=== PATIENT | female | born 1950 | race Caucasian/White ===

== ENCOUNTER 2017-02-14 21:44 | Inpatient (IN) | payer MEDICARE, OTHER ==
--- NOTE | 2017-02-14 22:03 | ED ---
General Adult HPI - General Chief complaint: Altered Mental Status Stated complaint: Altered Mental State Time Seen by Provider: 02/14/17 21:54 Source: patient, family, RN notes reviewed, old records reviewed Mode of arrival: wheelchair Limitations: altered mental status - History of Present Illness Initial comments: This is a 67-year-old female here for evaluation. This patient presents for evaluation for altered mental status and weakness. Patient has A. fib diabetes hypertension and high cholesterol. Patient is on no new medications as changes no medications. No new drugs or alcohol. Patient has been increasingly sleeping today. Patient states and family states patient was normal yesterday today she just has been feeling well been short of breath and complaining of severe abdominal pain. Weakness. Nausea vomiting. Family denies any fevers. Patient denies any chest pain - Related Data Home Medications Medication Instructions Recorded Confirmed Bisacodyl [Dulcolax] 5 mg PO DAILY 08/10/14 02/14/17 Gabapentin [Neurontin] 300 mg PO QAM 08/10/14 02/14/17 LORazepam [Ativan] 1 mg PO DAILY PRN 08/10/14 02/14/17 Pantoprazole Sodium 40 mg PO DAILY 08/10/14 02/14/17 Penciclovir 1% Cream [Denavir 1 applic TOPICAL 5XD PRN 08/10/14 02/14/17 Cream] Solifenacin Succinate [Vesicare] 10 mg PO HS 08/10/14 02/14/17 Calcium Carbonate [Calcium] 600 mg PO DAILY 06/26/15 02/14/17 fentaNYL 75MCG/HR PATCH [Duragesic 1 patch TRANSDERM Q72H 06/26/15 02/14/17 75MCG/HR] Meclizine [Antivert] 25 mg PO DAILY PRN 03/26/16 02/14/17 Ondansetron [Zofran] 4 mg PO Q12HR PRN 03/26/16 02/14/17 Fluconazole [Diflucan] 100 mg PO DAILY 04/02/16 02/14/17 Gabapentin [Neurontin] 600 mg PO 04/02/16 02/14/17 Venlafaxine HCl ER [Effexor XR] 75 mg PO QAM 04/02/16 02/14/17 Venlafaxine HCl ER [Effexor XR] 150 mg PO HS 04/02/16 02/14/17 Nystatin [Nystop] 1 applic TOPICAL BID PRN 02/14/17 02/14/17 Previous Rx's Medication Instructions Recorded Atorvastatin [Lipitor] 40 mg PO HS #30 tablet 04/06/14 Potassium Chloride ER [K-Dur 10] 10 meq PO DAILY #30 tab.er.prt 04/06/14 amLODIPine [Norvasc] 5 mg PO DAILY #30 tab 04/06/14 Furosemide [Lasix] 20 mg PO DAILY #30 tablet 04/30/14 Insulin Glargine,Hum.rec.anlog 60 unit SQ BID #5 insuln.pen 04/05/16 [Lantus Solostar] Insulin Lispro [humaLOG Kwikpen] 6 unit SQ TID #5 insuln.pen 04/05/16 oxyCODONE-APAP 10-325MG [Percocet 1 tab PO Q8H PRN #90 tab 04/05/16 10-325 mg] Allergies Allergy/AdvReac Type Severity Reaction Status Date / Time metformin HCl Allergy Unknown Verified 02/14/17 22:02 [From Glucophage] Review of Systems ROS Statement: Those systems with pertinent positive or pertinent negative responses have been documented in the HPI. ROS Other: All systems not noted in ROS Statement are negative. Past Medical History Past Medical History: Atrial Fibrillation, Cancer, CVA/TIA, Diabetes Mellitus, Hyperlipidemia, Renal Disease, Sleep Apnea/CPAP/BIPAP Additional Past Medical History / Comment(s): CVA 3, hiatal hernia, spinal stenosis, degenerative disc disease at L3-L4, chronic kidney disease stage III, obstructive sleep apnea, paroxysmal atrial fibrillation, CK D type3, diabetic neuropathy. overactive bladder, major depressive disorder,history of leukocytosis, septic knee arising from a left knee revision, liver cancer History of Any Multi-Drug Resistant Organisms: MRSA Date of last positivie culture/infection: 2010 MDRO Source:: left knee Past Surgical History: Bariatric Surgery, Heart Catheterization With Stent, Hernia Repair, Orthopedic Surgery Additional Past Surgical History / Comment(s): lap band placed in 2003, prolapsed, removed in 2005, neuro stimulator in back, one stent to LAD after stress test. Left knee arthroscopic surgery, right total knee arthroplasty, left total knee arthroplasty 10/01/2011, repair of quadriceps tendon 08/21/2011 , left knee patellar tendon repair 09/24/2011, removal of the hardware of the left total knee arthroplasty with implantation of the antibiotic spacer October 08 2011, total left knee hardware replacement in May 2012. EGD on March [address] Duane Crawford. Past Anesthesia/Blood Transfusion Reactions: No Reported Reaction Date of Last Stent Placement:: 05/17/2010 Past Psychological History: Anxiety, Depression Additional Psychological History / Comment(s): Patient is living at home with daughter, son-in-law, grandchildren and great-grandchildren. There are multiple dogs and cats in home Smoking Status: Former smoker Past Alcohol Use History: None Reported Past Drug Use History: None Reported - Past Family History Mother Family Medical History: Congestive Heart Failure (CHF) Father Family Medical History: Myocardial Infarction (DE) General Exam Limitations: altered mental status General appearance: alert, in no apparent distress, obese Head exam: Present: atraumatic, normocephalic, normal inspection Eye exam: Present: normal appearance, PERRL, EOMI. Absent: scleral icterus, conjunctival injection, periorbital swelling ENT exam: Present: normal exam, mucous membranes moist Neck exam: Present: normal inspection. Absent: tenderness, meningismus, lymphadenopathy Respiratory exam: Present: normal lung sounds bilaterally. Absent: respiratory distress, wheezes, rales, rhonchi, stridor Cardiovascular Exam: Present: regular rate, normal rhythm, normal heart sounds. Absent: systolic murmur, diastolic murmur, rubs, gallop, clicks GI/Abdominal exam: Present: soft, normal bowel sounds. Absent: distended, tenderness, guarding, rebound, rigid Extremities exam: Present: normal inspection, full ROM, normal capillary refill. Absent: tenderness, pedal edema, joint swelling, calf tenderness Back exam: Present: normal inspection Neurological exam: Present: alert, oriented X3, CN II-XII intact Psychiatric exam: Present: normal affect, normal mood Skin exam: Present: warm, dry, intact, normal color. Absent: rash Course Vital Signs 02/14/17 02/14/17 21:45 23:15 Temperature 98 F Pulse Rate 100 62 Respiratory 26 H 18 Rate Blood Pressure 176/100 151/105 O2 Sat by Pulse 96 97 Oximetry - Reevaluation(s) Reevaluation #1: 02/15/17 01:29 Patient showing no real clinical improvement, still somnolent sleeping EKG Findings - EKG Comments: EKG Findings:: EKG shows A. fib rate of 97, QRS 78, QTC 467 Medical Decision Making - Medical Decision Making 58 female ER for altered mental status, weakness, and out of A. fib with RVR, will consult cardiology for management, patient also has urinary tract infection dehydration will admit for IV antibiotics - Lab Data Result diagrams: 02/14/17 23:00 02/14/17 23:00 Lab Results 02/14/17 02/14/17 02/14/17 Range/Units 23:00 23:00 23:00 WBC 16.0 H (3.8-10.6) k/uL RBC 5.14 (3.80-5.40) m/uL Hgb 13.4 (11.4-16.0) gm/dL Hct 43.0 (34.0-46.0) % MCV 83.7 (80.0-100.0) fL MCH 26.1 (25.0-35.0) pg MCHC 31.2 (31.0-37.0) g/dL RDW 14.5 (11.5-15.5) % Plt Count 310 (150-450) k/uL Neutrophils % 81 % Lymphocytes % 12 % Monocytes % 4 % Eosinophils % 1 % Basophils % 1 % Neutrophils # 13.0 H (1.3-7.7) k/uL Lymphocytes # 2.0 (1.0-4.8) k/uL Monocytes # 0.7 (0-1.0) k/uL Eosinophils # 0.1 (0-0.7) k/uL Basophils # 0.1 (0-0.2) k/uL Hypochromasia Moderate PT 11.1 (9.0-12.0) sec INR 1.1 (<1.1) APTT 22.5 (22.0-30.0) sec Sodium 137 (137-145) mmol/L Potassium 4.3 (3.5-5.1) mmol/L Chloride 100 (98-107) mmol/L Carbon Dioxide 22 (22-30) mmol/L Anion Gap 15 mmol/L BUN 11 (7-17) mg/dL Creatinine 0.90 (0.52-1.04) mg/dL Est GFR (MDRD) Af Amer >60 (>60 ml/min/1.73 sqM) Est GFR (MDRD) Non-Af >60 (>60 ml/min/1.73 sqM) Glucose 316 H (74-99) mg/dL Calcium 8.9 (8.4-10.2) mg/dL Total Bilirubin 0.8 (0.2-1.3) mg/dL AST 19 (14-36) U/L ALT 30 (9-52) U/L Alkaline Phosphatase 174 H (38-126) U/L Ammonia (<30) umol/L Total Creatine Kinase (30-135) U/L CK-MB (CK-2) (0.0-2.4) ng/mL CK-MB (CK-2) Rel Index Troponin I (0.000-0.034) ng/mL Total Protein 6.7 (6.3-8.2) g/dL Albumin 3.5 (3.5-5.0) g/dL Urine Color Urine Appearance (Clear) Urine pH (5.0-8.0) Ur Specific [place] (1.001-1.035) Urine Protein (Negative) Urine Glucose (UA) (Negative) Urine Ketones (Negative) Urine Blood (Negative) Urine Nitrite (Negative) Urine Bilirubin (Negative) Urine Urobilinogen (<2.0) mg/dL Ur Leukocyte Esterase (Negative) Urine RBC (0-5) /hpf Urine WBC (0-5) /hpf Ur Squamous Epith Cells (0-4) /hpf Urine Bacteria (None) /hpf 02/14/17 02/14/17 02/15/17 Range/Units 23:00 23:00 01:03 WBC (3.8-10.6) k/uL RBC (3.80-5.40) m/uL Hgb (11.4-16.0) gm/dL Hct (34.0-46.0) % MCV (80.0-100.0) fL MCH (25.0-35.0) pg MCHC (31.0-37.0) g/dL RDW (11.5-15.5) % Plt Count (150-450) k/uL Neutrophils % % Lymphocytes % % Monocytes % % Eosinophils % % Basophils % % Neutrophils # (1.3-7.7) k/uL Lymphocytes # (1.0-4.8) k/uL Monocytes # (0-1.0) k/uL Eosinophils # (0-0.7) k/uL Basophils # (0-0.2) k/uL Hypochromasia PT (9.0-12.0) sec INR (<1.1) APTT (22.0-30.0) sec Sodium (137-145) mmol/L Potassium (3.5-5.1) mmol/L Chloride (98-107) mmol/L Carbon Dioxide (22-30) mmol/L Anion Gap mmol/L BUN (7-17) mg/dL Creatinine (0.52-1.04) mg/dL Est GFR (MDRD) Af Amer (>60 ml/min/1.73 sqM) Est GFR (MDRD) Non-Af (>60 ml/min/1.73 sqM) Glucose (74-99) mg/dL Calcium (8.4-10.2) mg/dL Total Bilirubin (0.2-1.3) mg/dL AST (14-36) U/L ALT (9-52) U/L Alkaline Phosphatase (38-126) U/L Ammonia <9 (<30) umol/L Total Creatine Kinase 114 (30-135) U/L CK-MB (CK-2) 1.1 (0.0-2.4) ng/mL CK-MB (CK-2) Rel Index 1.0 Troponin I <0.012 (0.000-0.034) ng/mL Total Protein (6.3-8.2) g/dL Albumin (3.5-5.0) g/dL Urine Color Yellow Urine Appearance Clear (Clear) Urine pH 6.5 (5.0-8.0) Ur Specific [place] 1.011 (1.001-1.035) Urine Protein Trace H (Negative) Urine Glucose (UA) 2+ H (Negative) Urine Ketones Trace H (Negative) Urine Blood Negative (Negative) Urine Nitrite Negative (Negative) Urine Bilirubin Negative (Negative) Urine Urobilinogen <2.0 (<2.0) mg/dL Ur Leukocyte Esterase Large H (Negative) Urine RBC <1 (0-5) /hpf Urine WBC 10 H (0-5) /hpf Ur Squamous Epith Cells <1 (0-4) /hpf Urine Bacteria Rare H (None) /hpf - Radiology Data Radiology results: report reviewed (CT brain, chest x-ray and CT of the pelvis are negative for acute disease), image reviewed Disposition Clinical Impression: Atrial fibrillation with RVR, Altered mental status, UTI (urinary tract infection) Disposition: ADMITTED IP TO THIS HOSP Condition: Fair Referrals: Shane Burnham MD [Primary Care Provider] - 1-2 days
[2017-02-14] MEDS ORDERED: SODIUM CHLORIDE 0.9% 1,000 ML IV ONE (22:07)
[2017-02-14] MEDS ORDERED: SODIUM CHLORIDE 0.9% 500 ML IV ONE (22:07)
[2017-02-14] MEDS ORDERED: LORazepam 2 MG/ML SYRINGE IV STA (22:21)
[2017-02-14] MEDS ORDERED: ONDANSETRON 4 MG/2 ML VIAL IVP STA (22:21)
[2017-02-14] MEDS ORDERED: HYDROmorphone 1 MG/ML 1 ML SYRINGE IVP STA ×2 (22:21→23:23)
[2017-02-14] MEDS ORDERED: HYDROmorphone 2 MG/ML 1 ML SYRINGE IVP STA (23:13)
[2017-02-14 23:19] LABS: Basophils # (A) 0.1 k/uL (0-0.2); Basophils % (A) 1 %; CH 25.4; CHCM 30.5; Eosinophils # (A) 0.1 k/uL (0-0.7); Eosinophils % (A) 1 %; HDW 2.64; HGB 13.4 gm/dL (11.4-16.0); Hypochromasia Moderate; Luc # (Auto) 0.16; Luc % (Auto) 1; Lymphocytes % (A) 12 %; MCH 26.1 pg (25.0-35.0); MCHC 31.2 g/dL (31.0-37.0); MCV 83.7 fL (80.0-100.0); Mean Platelet Volume 8.1; Monocytes # (A) 0.7 k/uL (0-1.0); Monocytes % (A) 4 %; Neutrophils % (A) 81 %; RBC 5.14 m/uL (3.80-5.40); RDW 14.5 % (11.5-15.5); WBC (Perox) 16.05
[2017-02-14 23:30] LABS: INR 1.1 (<1.1); Partial Thromboplastin Time 22.5 sec (22.0-30.0); Prothrombin Time 11.1 sec (9.0-12.0)
[2017-02-14 23:32] LABS: ALT 30 U/L (9-52); AST 19 U/L (14-36); Alkaline Phosphatase 174 U/L (38-126); Anion Gap 15 mmol/L; Blood Urea Nitrogen 11 mg/dL (7-17); Calcium 8.9 mg/dL (8.4-10.2); Carbon Dioxide 22 mmol/L (22-30); Chloride 100 mmol/L (98-107); Glucose 316 mg/dL (74-99); Non-African American GFR(MDRD) >60 (>60 ml/min/1.73 sqM); Potassium 4.3 mmol/L (3.5-5.1); Sodium 137 mmol/L (137-145); Total Bilirubin 0.8 mg/dL (0.2-1.3); Total Protein 6.7 g/dL (6.3-8.2)
[2017-02-14] MEDS ORDERED: RX INFO: IV CONTRAST WAS GIVEN 1 EACH MISC MISCELLANE PRN (23:44)
[2017-02-14 23:46] LABS: Creatine Kinase 114 U/L (30-135)
[2017-02-14 23:59] LABS: Creatine Kinase MB 1.1 ng/mL (0.0-2.4); Troponin I <0.012 ng/mL (0.000-0.034)
--- NOTE | 2017-02-15 00:04 | CT ---
EXAMINATION TYPE: CT brain wo con DATE OF EXAM: 02/14/2017 11:56 PM COMPARISON: NONE HISTORY: AMS CT DLP: 1072.30 mGycm Automated exposure control for dose reduction was used. FINDINGS: There is mild cerebral cortical atrophy. There is mild hypodensity around the lateral ventricles. The re is no mass effect nor midline shift. There is no sign of intracranial hemorrhage. The calvarium is intact. IMPRESSION: Mild atrophy and chronic small vessel ischemia. No acute intracranial abnormality. There is evidence for mild left-sided mastoiditis.
--- NOTE | 2017-02-15 01:10 | CT ---
EXAM: CT of the abdomen and pelvis with intravenous contrast. HISTORY: "Generalized abdominal pain". Medical and surgical history were not disclosed. On prior radiology report there is note of stage III renal disease and liver cancer. COMPARISON: CT of the abdomen and pelvis dated 04/02/16. TECHNIQUE: Continuous axial images of the abdomen and pelvis were obtained with intravenous contrast. Coronal and sagittal reformatting was provided. Delayed images were obtained. FINDINGS: Detailed evaluation on portal venous phase is limited by artifact due to body habitus/contact with the gantry. Further limited by moderate patient motion. There are several minute hypodensities in the right hepatic lobe region. These are too small to definitively characterize. They could be secondary to cyst or small hemangiomas. Some may be related to intrahepatic biliary ductal dilatation. However, the possibility of metastatic disease is not ruled out. Status post cholecystectomy. The spleen and adrenal glands show no substantial abnormality. Atrophic pancreas. Detailed evaluation of the kidneys on portal venous phase is markedly limited by patient motion. There is suggestion of several cortical hypodensities bilaterally, right greater than left. Some of this could be due to volume averaging artifact secondary to patient motion. However, on delayed phase imaging there is suggestion of a 1.4 cm heterogeneously enhancing mass in the right kidney (series 5, image 46). This is suspicious for malignancy. Recommend outpatient/nonemergent followup with dynamic phase renal MRI or CT for more detailed evaluation. No dilated loop of bowel to suggest obstruction. Urinary bladder is unremarkable. IMPRESSION: 1. Probable 1.4 cm heterogeneous enhancing mass in the right kidney as discussed. Suspicious for malignancy. Detailed evaluation limited by motion. Recommend outpatient/nonemergent dynamic phase renal MRI or CT for more detailed evaluation. 2. Lobulated contour of the inferior right hepatic lobe with ill-defined small hypodensities hypodensities as discussed. Metastatic disease is not ruled out. Attention on followup imaging. Potentially, a lobulated contour could be postsurgical. Correlate clinically. CTDI vol = 76.80 mGy DLP = 3223.20 mGycm One or more of the following dose reduction techniques were used: automated exposure control, adjustment of the mA and/or kV according to patient size, use of iterative reconstruction technique. cool
[2017-02-15 01:20] LABS: Appearance,Urine Clear (Clear); Bacteria,Urine Rare /hpf; Bilirubin,Urine Negative (Negative); Glucose,Urine (UA) 2+ (Negative); Ketones,Urine Trace (Negative); Leukocyte Esterase,Urine Large (Negative); Nitrite,Urine Negative (Negative); PH, Urine 6.5 (5.0-8.0); Particle Count 2348; Protein,Urine Trace (Negative); RBC,Urine <1 /hpf (0-5); Specific Gravity,Urine 1.011 (1.001-1.035); Squamous Epithelial Cell,Urine <1 /hpf (0-4); UA Billing (MACRO vs. MICRO) MICRO; Urobilinogen,Urine <2.0 mg/dL (<2.0); WBC,Urine 10 /hpf (0-5)
[2017-02-15] MEDS ORDERED: HYDROmorphone 1 MG/ML 1 ML SYRINGE IVP STA ×2 (03:00→05:52)
[2017-02-15 04:27] VITALS: BMI 46.1
[2017-02-15] MEDS ORDERED: NYSTATIN 100,000 UNIT/GM POWD 15 GM TOPICAL PRN (05:52)
[2017-02-15] MEDS ORDERED: ONDANSETRON 4 MG TAB PO PRN (05:52)
[2017-02-15] MEDS ORDERED: MECLIZINE 25 MG TAB PO PRN (05:52)
[2017-02-15 06:05] LABS: Glucose,Whole Blood 325 mg/dL (75-99)
[2017-02-15] MEDS: INSULIN LISPRO (humaLOG) 300 UNIT/3 ML VIAL SQ SCH ×4 (07:53→22:14)
[2017-02-15] MEDS: PANTOPRAZOLE 40 MG TABLET PO SCH (07:53)
[2017-02-15] MEDS: BISACODYL 5 MG TABLET.DR PO SCH ×2 (08:47→14:01)
[2017-02-15] MEDS: FLUCONAZOLE 100 MG TAB PO SCH (08:47)
[2017-02-15] MEDS: CALCIUM CARBONATE 500 MG CHEWABLE PO SCH (08:47)
[2017-02-15] MEDS: GABAPENTIN 300 MG CAP PO SCH ×2 (08:48→22:14)
[2017-02-15] MEDS: amLODIPine 5 MG TAB PO SCH ×2 (08:48→12:26)
[2017-02-15] MEDS: POTASSIUM CHLORIDE ER 10 MEQ TAB.ER.PRT PO SCH ×2 (08:48→08:51)
[2017-02-15] MEDS: VENLAFAXINE HCL ER 75 MG CAP PO SCH ×2 (08:48→22:15)
[2017-02-15] MEDS ORDERED: valACYclovir HCL 1,000 MG TABLET PO PRN (09:00)
[2017-02-15] MEDS ORDERED: FUROSEMIDE 20 MG TAB PO SCH (09:00)
[2017-02-15] MEDS ORDERED: RX INFO: IV CONTRAST WAS GIVEN 1 EACH MISC MISCELLANE PRN (09:16)
[2017-02-15] MEDS: oxyCODONE-APAP 10-325MG 1 EACH TAB PO PRN ×2 (09:33→17:14)
[2017-02-15 11:22] LABS: Hemoglobin A1C 7.5 % (4.2-6.1)
--- NOTE | 2017-02-15 11:45 | CT ---
EXAMINATION TYPE: CT angio chest DATE OF EXAM: 02/15/2017 11:27 AM COMPARISON: Body CT performed earlier today. HISTORY: 67-year-old female shortness of breath, rule out PE, with history of liver cancer TECHNIQUE: Contiguous axial scanning of the chest performed with IV Contrast, patient injected with 1 00 mL of Omnipaque 350. Coronal/sagittal MIP reconstructions performed. CT DLP: 656.5 mGycm Automated exposure control for dose reduction was used. FINDINGS: The heart is borderline enlarged without pericardial effusion. Coronary vessel calcifications are pre sent in remarkable for coronary artery disease. Ascending aorta is ectatic at 3.7 cm. Conventional arch vessel branching anatomy. While there is satisfactory opacification of the pulmonary arterial system, there is excessive respir atory motion and additional artifact from patient's large body habitus. No large central or lobar pul monary embolus. No embolus seen to the subsegmental level in the upper and midlungs. Many of the segm ental and subsegmental branches in the lower lower lobes are suboptimal for assessment. Hazy areas of atelectasis in the lower lungs. Mild diffuse bronchial wall thickening is noted without amy consolidation or pleural effusion. Some surgical changes along the proximal stomach. Unusual lobulated configuration to the inferior asp ect of the right hepatic lobe as mentioned on 02/14/[address] performed in the relay tester helper. Cholec ystectomy clips. Bones: Moderate endplate spondylosis throughout. Spinal stimulator array centered along the mid thora cic spinal canal. IMPRESSION: 1. RESPIRATORY MOTION LIMITING ASSESSMENT OF THE SEGMENTAL AND SUBSEGMENTAL BRANCHES OF THE LOWER MARTHA GS. EMBOLI HERE CANNOT ADEQUATELY BE EXCLUDED, FOR EXAMPLE, INVOLVING A SEGMENTAL RIGHT LOWER LOBE BR ANCH, AXIAL IMAGE 61. NO EVIDENCE FOR A PULMONARY EMBOLUS WITHIN THE UPPER AND MID LUNGS. 2. HAZY AREAS OF ATELECTASIS THROUGHOUT THE LUNGS.
[2017-02-15 12:10] LABS: Glucose,Whole Blood 207 mg/dL (75-99)
[2017-02-15] MEDS ORDERED: ENOXAPARIN 40 MG/0.4 ML SYRINGE SQ SCH (12:30)
--- NOTE | 2017-02-15 12:30 | P.HPIM ---
History of Present Illness H&P Date: 02/15/17 This is a 67-year-old female one of Dr. Burnham with a previous medical history significant for coronary artery disease status post PCI and stent placement of the LAD back in 2009 with ischemic cardiomyopathy, hypertension and hypertensive perivascular disease with left ventricular hypertrophy, chronic kidney disease stage III, obstructive sleep apnea, CVA, paroxysmal atrial fibrillation, septic left knee arthroplasty, liver cancer in the care of [facility]. Patient was brought into [facility] emergency center due to altered mental status and weakness. Patient has also had increased sleeping today and apparently was normal yesterday. There is also concern for shortness of breath and complaining of severe abdominal pain. Patient is seen on the selective care unit. She is a very poor historian. She does states she had a fall with back and stomach pain and increasing weakness with nausea and vomiting. Her temperature at home was 98. She does state that she is still on chemotherapy at [facility]. She underwent a CAT scan of the brain that showed mild atrophy and chronic small vessel ischemia. No acute intracranial abnormality. Evidence of mild left-sided mastoiditis. CAT scan of the abdomen and pelvis revealed a probable 1.4 cm heterogeneous enhancing mass in the right kidney suspicious for malignancy. Lobulated contour the and. Right hepatic lobe with ill-defined small hypodensities. Metastatic disease is not ruled out. CTA chest finding a limited study of the lower branches but no evidence of pulmonary embolus with an upper and mid lungs. Hazy areas of atelectasis throughout the lungs. Consults were placed for cardiology regarding atrial fibrillation which is a controlled rate at this time. Patient is not on anticoagulation due to her underlying liver disease. Consult placed with urology to evaluate kidney mass. Review of Systems ROS unobtainable: due to mental status Past Medical History Past Medical History: Atrial Fibrillation, Cancer, CVA/TIA, Diabetes Mellitus, Hyperlipidemia, Renal Disease, Sleep Apnea/CPAP/BIPAP Additional Past Medical History / Comment(s): CVA 3, hiatal hernia, spinal stenosis, degenerative disc disease at L3-L4, chronic kidney disease stage III, obstructive sleep apnea, paroxysmal atrial fibrillation, CK D type3, diabetic neuropathy. overactive bladder, major depressive disorder,history of leukocytosis, septic left knee arthroplasty, liver cancer- no changes to medical history per patient (02/15/17) History of Any Multi-Drug Resistant Organisms: MRSA Date of last positivie culture/infection: 2010 MDRO Source:: left knee Past Surgical History: Bariatric Surgery, Heart Catheterization With Stent, Hernia Repair, Orthopedic Surgery Additional Past Surgical History / Comment(s): lap band placed in 2003, prolapsed, removed in 2005, neuro stimulator in back, one stent to LAD after stress test. Left knee arthroscopic surgery, right total knee arthroplasty, left total knee arthroplasty 10/01/2011, repair of quadriceps tendon 08/21/2011 , left knee patellar tendon repair 09/24/2011, removal of the hardware of the left total knee arthroplasty with implantation of the antibiotic spacer October 08 2011, total left knee hardware replacement in May 2012. EGD on March [address] Duane Crawford. No changes to surgical history per patient (02/15/17) Past Anesthesia/Blood Transfusion Reactions: No Reported Reaction Date of Last Stent Placement:: 05/17/2010 Past Psychological History: Anxiety, Depression Additional Psychological History / Comment(s): Patient is living at home with daughter, son-in-law, grandchildren and great-grandchildren. There are multiple dogs and cats in home Smoking Status: Never smoker Past Alcohol Use History: None Reported Past Drug Use History: Opiates - Past Family History Mother Family Medical History: Congestive Heart Failure (CHF) Father Family Medical History: Myocardial Infarction ([place]) Medications and Allergies Home Medications Medication Instructions Recorded Confirmed Type Bisacodyl [Dulcolax] 5 mg PO DAILY 08/10/14 02/14/17 History Gabapentin [Neurontin] 300 mg PO QAM 08/10/14 02/14/17 History LORazepam [Ativan] 1 mg PO DAILY PRN 08/10/14 02/14/17 History Pantoprazole Sodium 40 mg PO DAILY 08/10/14 02/14/17 History Penciclovir 1% Cream [Denavir 1 applic TOPICAL 5XD PRN 08/10/14 02/14/17 History Cream] Solifenacin Succinate [Vesicare] 10 mg PO HS 08/10/14 02/14/17 History Calcium Carbonate [Calcium] 600 mg PO DAILY 06/26/15 02/14/17 History fentaNYL 75MCG/HR PATCH [Duragesic 1 patch TRANSDERM Q72H 06/26/15 02/14/17 History 75MCG/HR] Meclizine [Antivert] 25 mg PO DAILY PRN 03/26/16 02/14/17 History Ondansetron [Zofran] 4 mg PO Q12HR PRN 03/26/16 02/14/17 History Fluconazole [Diflucan] 100 mg PO DAILY 04/02/16 02/14/17 History Gabapentin [Neurontin] 600 mg PO HS 04/02/16 02/14/17 History Venlafaxine HCl ER [Effexor XR] 75 mg PO QAM 04/02/16 02/14/17 History Venlafaxine HCl ER [Effexor XR] 150 mg PO HS 04/02/16 02/14/17 History Nystatin [Nystop] 1 applic TOPICAL BID PRN 02/14/17 02/14/17 History Allergies Allergy/AdvReac Type Severity Reaction Status Date / Time metformin HCl Allergy Unknown Verified 02/14/17 22:02 [From Glucophage] Physical Exam Vitals: Vital Signs Temp Pulse Pulse Resp BP BP Pulse Ox 02/15/17 04:00 97.1 F L 103 H 18 166/99 93 L 02/15/17 03:07 96.8 F L 105 H 18 131/70 93 L 02/15/17 01:45 98.0 F 75 16 138/67 93 L Intake and Output 02/14/17 02/15/17 02/15/17 22:59 06:59 14:59 Intake Total 0 Output Total 300 Balance -300 0 Intake: Oral 0 Output: Urine 300 Other: Voiding Method Toilet # Voids 1 Weight 122 kg General appearance: mild distress, morbidly obese - EENT Eyes: Reports anicteric sclerae, Reports disc margins sharp, Reports PERRLA, Reports fundus normal, Reports normal apperance, Denies ptosis, Denies scleral icterus ENT: Reports hearing grossly normal, Reports NA/AT, Denies normal oropharynx, Denies thrush - Neck Neck: Reports normal ROM, Denies lymphadenopathy, Denies rigidity, Denies stridor, Denies thyromegaly Carotids: bilateral: upstroke delayed Thyroid: bilateral: normal size - Respiratory Respiratory: bilateral: diminished, negative: dullness, rales, rhonchi, wheezing , prolonged expiration, prolonged inspiration - Cardiovascular Rhythm: regular Heart sounds: normal: S1, S2 Abnormal Heart Sounds: Reports systolic murmur, Denies rub, Denies S3 Gallop, Denies S4 Gallop, Denies click - Gastrointestinal General gastrointestinal: no distended, Reports normal bowel sounds, Reports soft, Reports tenderness, Denies umbilical hernia, Denies ventral hernia - Integumentary Integumentary: Reports normal, Reports normal turgor - Neurologic Neurologic: CNII-XII intact - Musculoskeletal Musculoskeletal: Reports generalized weakness, Reports strength equal bilaterally - Psychiatric Psychiatric: no A&O x's 3, Reports appropriate affect, no intact judgment & insight Results CBC & Chem 7: 02/14/17 23:00 02/14/17 23:00 Labs: Abnormal Lab Results - Last 24 Hours (Table) 02/15/17 Range/Units 06:03 POC Glucose (mg/dL) 325 H (75-99) mg/dL Thrombosis Risk Factor Assmnt - DVT/VTE Prophylaxis DVT/VTE Prophylaxis: Pharmacologic Prophylaxis ordered - Choose All That Apply Each Factor Represents 1 point: Obesity (BMI >25) Each Risk Factor Represents 2 Points: Age 61-74 years Thrombosis Risk Factor Assessment Total Risk Factor Score: 3 Thrombosis Risk Factor Assessment Level: Moderate Risk Assessment and Plan Plan: 1. Metabolic encephalopathy possibly due to urinary tract infection and sepsis. Continue ceftriaxone. Urine and blood cultures are in progress. 2. Atrial fibrillation presenting with minimally rapid ventricular response. Cardiology consult was placed. Patient is not on anticoagulation due to liver disease. 2. Abdominal pain which may be chronic due to her underlying history of liver cancer. She is currently on a fentanyl patch at 75 g every 3 days and Percocet. 4. New finding of mass in the right kidney. Consult with urology. 5. CTA of the chest with possible pulmonary embolism. Patient will be started on a heparin drip, consult with Dr. Mcgee. VQ scan ordered. 6. Diabetes mellitus type 2. Continue Lantus 60 units subcu at bedtime along with the Humalog weight base plus sliding scale insulin, blood glucose level monitoring before each meal and at bedtime. 7. Hypertension and hypertensive cardiovascular disease. Continue amlodipine 5 mg orally once every day. 8. Paroxysmal atrial fibrillation currently in sinus rhythm. Consult with cardiology 9. Liver cancer. Under the care of hematology oncology at [facility]. 10. Hyperlipidemia. Continue Lipitor 40 mg orally once every day. 11. COPD, stable. 12. History of CAD status post myocardial infarction and prior PCI of the LAD. Continue Lipitor 40 mg orally once every day. 13. History of the depressive disorder. Continue venlafaxine 75 mg orally in the morning and 150 mg at bedtime. 14. Overactive bladder. Continue Vesicare 10mg every day. 15. DVT prophylaxis. Heparin drip. 16. GI prophylaxis. Protonix 40 mg IV push every 24 hours. 17. Admitted to inpatient. Estimated length of stay 2 midnights. Discharge plan: To be determined Impression and plan of care have been directed as dictated by the signing physician. Clare Mak nurse practitioner acting as scribe for signing physician. Time with Patient: Greater than 30
[2017-02-15] MEDS ORDERED: HEPARIN SODIUM,PORCINE 10,000 UNIT/ML 1 ML VIAL IV ONE (12:41)
[2017-02-15] MEDS ORDERED: HEPARIN SODIUM,PORCINE 5,000 UNIT/ML 1 ML VIAL IV PRN (12:41)
[2017-02-15] MEDS ORDERED: HEPARIN SODIUM,PORCINE/D5W PMX 25,000 UNIT in DEXTROSE/WATER 1 500ML.BAG IV SCH (12:45)
[2017-02-15 12:49] LABS: Potassium 4.6 mmol/L (3.5-5.1)
--- NOTE | 2017-02-15 13:09 | XR ---
EXAMINATION TYPE: XR chest 1V portable DATE OF EXAM: 02/15/2017 1:04 PM Comparison: 06/11/2016 Clinical History: 67-year-old female shortness of breath, CHF Findings: Heart is upper limits of normal in size. Diffuse interstitial prominence. Some hazy density periphera l left base and some strandy atelectasis at the left midlung. Impression: Interstitial opacities. Correlate for possible mild CHF.
[2017-02-15] MEDS: SODIUM CHLORIDE 0.9% 1,000 ML IV SCH (14:00)
--- NOTE | 2017-02-15 14:13 | P.CNPUL ---
History of Present Illness Consult date: 02/15/17 Chief complaint: Pulmonary embolism History of present illness: his is a 67-year-old female one of Dr. Burnham with a previous medical history significant for coronary artery disease status post PCI and stent placement of the LAD back in 2009 with ischemic cardiomyopathy, hypertension and hypertensive perivascular disease with left ventricular hypertrophy, chronic kidney disease stage III, obstructive sleep apnea, CVA, paroxysmal atrial fibrillation, septic left knee arthroplasty, liver cancer in the care of [facility]. 67-year-old morbidly obese female patient was hospitalized because of altered mental status and generalized body weakness. Lactic acid was mildly elevated at a time of admission. She denied having any chest pain. No cough or sputum production. No pleurisy. No hemoptysis pH is currently on room air. She is afebrile. She is known to have obstructive sleep apnea yet she is not compliant to CPAP therapy. She also has history of a liver cancer him a hepatocellular carcinoma, treated through localized embolization, and she has been told by the oncologist at [facility] that the tumor has been under the check. No history of any fever or chills. No headaches. No seizure activity. No dysuria frequency or urgency. No open wounds or sores. She has cutaneous fungal skin infection involving the groin. This is likely Miryam. She is currently on Diflucan. The patient underwent a CAT scan of the brain that showed mild atrophy and chronic small vessel ischemia. No acute intracranial abnormality. Evidence of mild left-sided mastoiditis. CAT scan of the abdomen and pelvis revealed a probable 1.4 cm heterogeneous enhancing mass in the right kidney suspicious for malignancy. Lobulated contour the and. Right hepatic lobe with ill-defined small hypodensities. Metastatic disease is not ruled out. CTA chest finding a limited study of the lower branches but no evidence of pulmonary embolus with an upper and mid lungs. Hazy areas of atelectasis throughout the lungs. No calf pain. No swelling lower extremities. She has atrial fibrillation however she has not been found to be a good candidate for anticoagulation. Review of Systems Further review of system was done and the positive findings are almost above in history of present illness Past Medical History Past Medical History: Atrial Fibrillation, Cancer, CVA/TIA, Diabetes Mellitus, Hyperlipidemia, Sleep Apnea/CPAP/BIPAP Additional Past Medical History / Comment(s): Morbid obesity, coronary artery disease with previous angioplasty to LAD in 2009, hypertension, hepatocellular carcinoma, obstructive sleep apnea, diabetes mellitus, hyperlipidemia, CVA/TIA, chronic atrial fibrillation, hiatal hernia, spinal stenosis, degenerative disc disease involving L3 and L4, diabetic peripheral neuropathy, hyperactive bladder , history of septic left knee joint post arthroplasty History of Any Multi-Drug Resistant Organisms: MRSA Date of last positivie culture/infection: 2010 MDRO Source:: left knee Past Surgical History: Bariatric Surgery, Heart Catheterization With Stent, Hernia Repair, Orthopedic Surgery Additional Past Surgical History / Comment(s): lap band placed in 2003, prolapsed, removed in 2005, neuro stimulator in back, one stent to LAD after stress test. Left knee arthroscopic surgery, right total knee arthroplasty, left total knee arthroplasty 10/01/2011, repair of quadriceps tendon 08/21/2011 , left knee patellar tendon repair 09/24/2011, removal of the hardware of the left total knee arthroplasty with implantation of the antibiotic spacer October 08 2011, total left knee hardware replacement in May 2012. EGD on March [address] Duane Crawford. No changes to surgical history per patient (02/15/17), cholecystectomy, tonsillectomy, adenoidectomy, total abdominal hysterectomy and bilateral salpingo-oophorectomy, repair of a quadriceps tendon, trigger finger, left hand in 2003 with subsequent reversal in 2005 Past Anesthesia/Blood Transfusion Reactions: No Reported Reaction Date of Last Stent Placement:: 05/17/2010 Past Psychological History: Anxiety, Depression Additional Psychological History / Comment(s): Patient is living at home with daughter, son-in-law, grandchildren and great-grandchildren. There are multiple dogs and cats in home Smoking Status: Never smoker Past Alcohol Use History: None Reported Past Drug Use History: Opiates - Past Family History Mother Family Medical History: Congestive Heart Failure (CHF) Father Family Medical History: Myocardial Infarction ([place]) Medications and Allergies Home Medications Medication Instructions Recorded Confirmed Type Bisacodyl [Dulcolax] 5 mg PO DAILY 08/10/14 02/14/17 History Gabapentin [Neurontin] 300 mg PO QAM 08/10/14 02/14/17 History LORazepam [Ativan] 1 mg PO DAILY PRN 08/10/14 02/14/17 History Pantoprazole Sodium 40 mg PO DAILY 08/10/14 02/14/17 History Penciclovir 1% Cream [Denavir 1 applic TOPICAL 5XD PRN 08/10/14 02/14/17 History Cream] Solifenacin Succinate [Vesicare] 10 mg PO HS 08/10/14 02/14/17 History Calcium Carbonate [Calcium] 600 mg PO DAILY 06/26/15 02/14/17 History fentaNYL 75MCG/HR PATCH [Duragesic 1 patch TRANSDERM Q72H 06/26/15 02/14/17 History 75MCG/HR] Meclizine [Antivert] 25 mg PO DAILY PRN 03/26/16 02/14/17 History Ondansetron [Zofran] 4 mg PO Q12HR PRN 03/26/16 02/14/17 History Fluconazole [Diflucan] 100 mg PO DAILY 04/02/16 02/14/17 History Gabapentin [Neurontin] 600 mg PO HS 04/02/16 02/14/17 History Venlafaxine HCl ER [Effexor XR] 75 mg PO QAM 04/02/16 02/14/17 History Venlafaxine HCl ER [Effexor XR] 150 mg PO HS 04/02/16 02/14/17 History Nystatin [Nystop] 1 applic TOPICAL BID PRN 02/14/17 02/14/17 History Allergies Allergy/AdvReac Type Severity Reaction Status Date / Time metformin HCl Allergy Unknown Verified 02/14/17 22:02 [From Glucophage] Physical Exam Vitals: Vital Signs Temp Pulse Pulse Resp BP BP BP 02/15/17 12:00 97.4 F L 79 20 158/90 02/15/17 08:30 98.6 F 100 24 128/81 02/15/17 04:00 97.1 F L 103 H 18 166/99 02/15/17 03:07 96.8 F L 105 H 18 131/70 02/15/17 01:45 98.0 F 75 16 138/67 Pulse Ox 02/15/17 12:00 94 L 02/15/17 08:30 92 L 02/15/17 04:00 93 L 02/15/17 03:07 93 L 02/15/17 01:45 93 L Intake and Output 02/14/17 02/15/17 02/15/17 22:59 06:59 14:59 Intake Total 120 Output Total 300 400 Balance -300 -280 Intake: Oral 120 Output: Urine 300 400 Other: Voiding Method Toilet Bedside Commode # Voids 150 Weight 122 kg Morbidly obese, calm and comfortable, not consistent distress. My normal had neck is supple and short and there is significant crowding of posterior pharynx. No goiter or neck masses.Lungs were clear to auscultation and percussion, and with normal diaphragmatic excursion. No wheezes or rales were noted. My normal heart abdomen is obese and the patient's organs cannot be accurately palpated. There is no direct tenderness. No rebound tenderness. No guarding. Extremities reveal trace edema lower eczematous bilaterally. There is no cyanosis or clubbing. Neurologically she is awake and she is following commands and answering questions and she is moving all 4 extremities without any limitation. Results - Laboratory Findings CBC and BMP: 02/14/17 23:00 02/15/17 12:13 PT/INR, D-dimer PT 11.1 sec (9.0-12.0) 02/14/17 23:00 INR 1.1 (<1.1) 02/14/17 23:00 Abnormal lab findings: Abnormal Labs 02/15/17 02/15/17 02/15/17 06:03 12:03 12:13 Sodium POC Glucose (mg/dL) 325 H 207 H Plasma Lactic Acid Fabio 3.8 H* Magnesium TSH 02/15/17 02/15/17 12:13 12:13 Sodium 136 L POC Glucose (mg/dL) Plasma Lactic Acid Fabio Magnesium 1.5 L TSH 7.790 H - Diagnostic Findings Chest x-ray: image reviewed Assessment and Plan Plan: Assessment 1 change in mental status, likely encephalopathy. Look for any infectious source, likely of a urinary source. No evidence of pneumonia. No evidence of any pulmonary embolism. 2 previous history of septic shock secondary to her urine checked infection and vent-dependent history failure in 2013 3. Liver cancer/hepatocellular carcinoma status post localized chemotherapy 4 morbid obesity 5 obstructive sleep apnea 6 diabetes mellitus 7 diabetic peripheral neuropathy 8 hypertension 9 previous pediatric surgery in the form of lap and that was subsequently removed 10 anxiety/depression 11 chronic atrial fibrillation 12 coronary artery disease with previous coronary intervention involving the LAD 13 Lactic acidosis, mild 14 candidal intercrural infection. Plan No need for a VQ scan. IV heparin and switched the patient to subcu heparin. Discussed the case with Dr. JAYME Hensley from cardiology and the patient does not seem to be a long-term anticoagulation candidate for atrial fibrillation. The patient has no evidence of any pulmonary embolism. Awaiting urine culture. Awaiting blood cultures. Check ammonia level. Continue IV antibiotics. We'll follow.
[2017-02-15] MEDS: METOPROLOL TARTRATE 50 MG TAB PO SCH ×2 (15:46→22:14)
[2017-02-15] MEDS: FUROSEMIDE 10 MG/ML 2 ML VIAL IV SCH (15:46)
[2017-02-15 16:49] LABS: Glucose,Whole Blood 208 mg/dL (75-99)
[2017-02-15] MEDS: MAGNESIUM SULFATE-D5W PMX 1 GM in DEXTROSE/WATER 1 100ML.BAG IVPB SCH ×2 (16:57→18:37)
--- NOTE | 2017-02-15 17:31 | CONS ---
DATE OF CONSULTATION: A 67-year-old elderly lady with a known diagnosis of paroxysmal atrial fibrillation, type 2 diabetes, hypertension, obesity, hyperlipidemia. She was diagnosed to have a liver abnormality, probably metastatic disease. There is also a renal enhancing mass as well. She is a patient of Dr. Burnham and apparently she sought evaluation at [facility] and she was on anticoagulation for atrial fib, but once the diagnosis of liver metastasis was made her anticoagulation was discontinued. She is known to have CAD with previous PCI sometime in 2009, the details are unavailable. She has chronic kidney disease, sleep apnea syndrome, paroxysmal atrial fibrillation and history of left knee arthroplasty in the past. 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 She is here mainly because of weakness, lack of energy, and some confusion. She also had some shortness of breath, but did not have any chest discomfort. She has no syncope or near syncope. Rhythm strips here suggested that she is in paroxysmal atrial fibrillation. She used to be on beta blockers at home. She denies any chest pain and her generalized weakness is her major issue at this time. Her confusion seems to have also improved. PAST MEDICAL HISTORY: 1. History of CAD, previous PCI, details unavailable. 2. Chronic kidney disease. 3. Obstructive sleep apnea syndrome. 4. Paroxysmal atrial fibrillation. 5. History of liver cancer, details unclear. The patient was on anticoagulation but this was discontinued at [facility] after diagnosis of liver mets. Patient is status post bariatric surgery and orthopedic surgery and hernia repair. Medications at home include: Neurontin, lorazepam, metoprolol tartrate according to patient's daughter, Duragesic patch, Effexor and calcium supplements. REVIEW OF SYSTEMS: Remarkable for generalized weakness, lack of energy, confusion. No hematemesis or melena, genitourinary symptoms, fevers with chills, or cough with expectoration. On examination, blood pressure is 140/80, pulse rate is about 80 per minute irregular. HEENT: Unremarkable. Fundus was not examined by me. Neck is supple. There is JVD of 1 cm. No carotid bruit. Heart exam reveals S1 and S2 heard normally, irregular rate and rhythm noted, short systolic murmur noted. Lungs reveal diminished air entry. Abdomen is distended. Lower extremities reveal diminished pulses, trace edema. CENTRAL NERVOUS SYSTEM: Grossly no focal deficits. CT angiography of the chest was performed. Study revealed that there is no clear-cut evidence of pulmonary embolism, but there was some motion artifact and subsegmental emboli could not be excluded. EKG revealed atrial fibrillation, controlled ventricular rate, nonspecific ST-T changes and evidence of a nondiagnostic inferior Q wave. IMPRESSION: 1. Atrial fibrillation, paroxysmal in nature, not anticoagulated. 2. Fatigue and lack of energy, multifactorial. No clear-cut etiology. 3. Shortness of breath, could be multifactorial, not strongly suggestive of pulmonary embolism. 4. History of liver cancer, details unclear. RECOMMENDATIONS: From a cardiac standpoint, I am recommending subcu heparin 5000 units q.12 hours. The patient has already been initiated on heparin, which I am not sure what is necessary under the current circumstances. I spoke to Dr. Mcgee who will make a decision in this regard. I am going to add a beta lupe, metoprolol tartrate 50 mg b.i.d. mainly to help rate control. No other intervention is necessary. Prognosis for this patient is somewhat guarded. A VQ scan has also been ordered. An echocardiogram will also be ordered. An echo from March of last year revealed ejection fraction of 45% to 50% without regional wall motion abnormality and there was no significant pulmonary hypertension. I would optimize rate control, defer anticoagulation and based on clinical course, make further recommendations and I will await input from Dr. Mcgee regarding anticoagulation, which I do not believe is necessary and subcu heparin would probably be a better idea. Thank you very much for the consult.
[2017-02-15] MEDS ORDERED: HEPARIN SODIUM,PORCINE 5,000 UNIT/ML 1 ML VIAL SQ SCH (21:00)
[2017-02-15] MEDS: INSULIN GLARGINE 100 UNIT/ML 10 ML VIAL SQ SCH (22:14)
[2017-02-15] MEDS: ATORVASTATIN 40 MG TAB PO SCH (22:14)
[2017-02-15] MEDS: OXYBUTYNIN XL 5 MG TAB.ER.24 PO SCH (22:15)
[2017-02-15 22:27] LABS: Glucose,Whole Blood 222 mg/dL (75-99)
[2017-02-16] MEDS ORDERED: HEPARIN SODIUM,PORCINE 5,000 UNIT/ML 1 ML VIAL SQ SCH
[2017-02-16] MEDS: oxyCODONE-APAP 10-325MG 1 EACH TAB PO PRN ×4 (00:11→23:28)
[2017-02-16] MEDS: FUROSEMIDE 10 MG/ML 2 ML VIAL IV SCH ×2 (00:11→08:19)
[2017-02-16] MEDS: LORazepam 1 MG TAB PO PRN ×2 (00:11→21:21)
[2017-02-16] MEDS: INSULIN LISPRO (humaLOG) 300 UNIT/3 ML VIAL SQ SCH ×4 (06:39→21:23)
[2017-02-16] MEDS: PANTOPRAZOLE 40 MG TABLET PO SCH (06:39)
[2017-02-16 06:51] LABS: Glucose,Whole Blood 154 mg/dL (75-99)
[2017-02-16 07:00] LABS: Calcium 8.8 mg/dL (8.4-10.2)
[2017-02-16 07:07] LABS: CH 25.7; CHCM 31.4; HCT 40.9 % (34.0-46.0); HDW 2.68; HGB 12.9 gm/dL (11.4-16.0); Hypochromasia Slight; MCHC 31.6 g/dL (31.0-37.0); MCV 82.1 fL (80.0-100.0); Mean Platelet Volume 8.9; RBC 4.98 m/uL (3.80-5.40); RDW 14.8 % (11.5-15.5); WBC 11.3 k/uL (3.8-10.6)
[2017-02-16] MEDS: BISACODYL 5 MG TABLET.DR PO SCH (08:18)
[2017-02-16] MEDS: VENLAFAXINE HCL ER 75 MG CAP PO SCH ×2 (08:19→21:22)
[2017-02-16] MEDS: MAGNESIUM OXIDE 400 MG TAB PO SCH (08:19)
[2017-02-16] MEDS: METOPROLOL TARTRATE 50 MG TAB PO SCH ×2 (08:19→21:22)
[2017-02-16] MEDS: GABAPENTIN 300 MG CAP PO SCH ×2 (08:20→21:22)
[2017-02-16] MEDS: POTASSIUM CHLORIDE ER 10 MEQ TAB.ER.PRT PO SCH (08:20)
[2017-02-16] MEDS: FLUCONAZOLE 100 MG TAB PO SCH (08:21)
[2017-02-16] MEDS: CALCIUM CARBONATE 500 MG CHEWABLE PO SCH (08:21)
[2017-02-16] MEDS: SODIUM CHLORIDE 0.9% 1,000 ML IV SCH (08:24)
--- NOTE | 2017-02-16 11:39 | P.PN ---
Subjective This is a 67-year-old female one of Dr. Burnham with a previous medical history significant for coronary artery disease status post PCI and stent placement of the LAD back in 2009 with ischemic cardiomyopathy, hypertension and hypertensive perivascular disease with left ventricular hypertrophy, chronic kidney disease stage III, obstructive sleep apnea, CVA, paroxysmal atrial fibrillation, septic left knee arthroplasty, liver cancer in the care of [facility]. Patient was brought into [facility] emergency center due to altered mental status and weakness. Patient has also had increased sleeping today and apparently was normal yesterday. There is also concern for shortness of breath and complaining of severe abdominal pain. Patient is seen on the selective care unit. She is a very poor historian. She does states she had a fall with back and stomach pain and increasing weakness with nausea and vomiting. Her temperature at home was 98. She does state that she is still on chemotherapy at [facility]. She underwent a CAT scan of the brain that showed mild atrophy and chronic small vessel ischemia. No acute intracranial abnormality. Evidence of mild left-sided mastoiditis. CAT scan of the abdomen and pelvis revealed a probable 1.4 cm heterogeneous enhancing mass in the right kidney suspicious for malignancy. Lobulated contour the and. Right hepatic lobe with ill-defined small hypodensities. Metastatic disease is not ruled out. CTA chest finding a limited study of the lower branches but no evidence of pulmonary embolus with an upper and mid lungs. Hazy areas of atelectasis throughout the lungs. Consults were placed for cardiology regarding atrial fibrillation which is a controlled rate at this time. Patient is not on anticoagulation due to her underlying liver disease. Consult placed with urology to evaluate kidney mass. 02/16: Pulmonary embolism was ruled out by Dr. Mcgee. Patient will not be on any anticoagulation due to her underlying liver cancer. Patient states she is less shortness of breath today. Mental status is improved. She denies abdominal pain. No CODE STATUS determined. Patient does have power of collections attorney papers. Patient has been seen by cardiology and started on metoprolol. Plan to start losartan tomorrow. Objective - Vital Signs Vital signs: Vital Signs Temp 97.4 F L 02/15/17 12:00 Pulse 79 02/15/17 12:00 Resp 20 02/15/17 12:00 BP 158/90 02/15/17 12:00 Pulse Ox 94 L 02/15/17 12:00 Intake & Output 02/14/17 02/15/17 02/15/17 18:59 06:59 18:59 Intake Total 120 Output Total 300 400 Balance -300 -280 Weight 122 kg Intake: Oral 120 Output: Urine 300 400 Other: Voiding Method Toilet Bedside Commode # Voids 150 - Exam General appearance: mild distress, morbidly obese - EENT Eyes: Reports anicteric sclerae, Reports disc margins sharp, Reports PERRLA, Reports fundus normal, Reports normal apperance, Denies ptosis, Denies scleral icterus ENT: Reports hearing grossly normal, Reports NA/AT, Denies normal oropharynx, Denies thrush - Neck Neck: Reports normal ROM, Denies lymphadenopathy, Denies rigidity, Denies stridor, Denies thyromegaly Carotids: bilateral: upstroke delayed Thyroid: bilateral: normal size - Respiratory Respiratory: bilateral: diminished, negative: dullness, rales, rhonchi, wheezing , prolonged expiration, prolonged inspiration - Cardiovascular Rhythm: regular Heart sounds: normal: S1, S2 Abnormal Heart Sounds: Reports systolic murmur, Denies rub, Denies S3 Gallop, Denies S4 Gallop, Denies click - Gastrointestinal General gastrointestinal: no distended, Reports normal bowel sounds, Reports soft, Reports tenderness, Denies umbilical hernia, Denies ventral hernia - Integumentary Integumentary: Reports normal, Reports normal turgor - Neurologic Neurologic: CNII-XII intact - Musculoskeletal Musculoskeletal: Reports generalized weakness, Reports strength equal bilaterally - Psychiatric Psychiatric: A&O x's 3, Reports appropriate affect, intact judgment & insight - Labs CBC & Chem 7: 02/16/17 06:01 02/16/17 06:01 Labs: Abnormal Lab Results - Last 24 Hours (Table) 02/15/17 02/15/17 02/15/17 Range/Units 06:03 12:03 12:13 Sodium (137-145) mmol/L POC Glucose (mg/dL) 325 H 207 H (75-99) mg/dL Plasma Lactic Acid Fabio 3.8 H* (0.7-2.0) mmol/L Magnesium (1.6-2.3) mg/dL TSH (0.465-4.680) mIU/L 02/15/17 02/15/17 Range/Units 12:13 12:13 Sodium 136 L (137-145) mmol/L POC Glucose (mg/dL) (75-99) mg/dL Plasma Lactic Acid Fabio (0.7-2.0) mmol/L Magnesium 1.5 L (1.6-2.3) mg/dL TSH 7.790 H (0.465-4.680) mIU/L Assessment and Plan Plan: 1. Metabolic encephalopathy possibly due to urinary tract infection and sepsis. Continue ceftriaxone. Urine and blood cultures are in progress. 2. Atrial fibrillation presenting with minimally rapid ventricular response. Cardiology consult was placed. Patient is not on anticoagulation due to liver disease. Metoprolol started. 2. Abdominal pain which may be chronic due to her underlying history of liver cancer. She is currently on a fentanyl patch at 75 g every 3 days and Percocet. 4. New finding of mass in the right kidney. Consult with urology. 5. CTA of the chest with possible pulmonary embolism--ruled out by Dr. Mcgee. 6. Diabetes mellitus type 2. Continue Lantus 60 units subcu at bedtime along with the Humalog weight base plus sliding scale insulin, blood glucose level monitoring before each meal and at bedtime. 7. Hypertension and hypertensive cardiovascular disease. Continue amlodipine 5 mg orally once every day. Metoprolol started. We will plan for losartan to start tomorrow. 8. Paroxysmal atrial fibrillation currently in sinus rhythm. Consult with cardiology 9. Liver cancer. Under the care of hematology oncology at [facility]. 10. Hyperlipidemia. Continue Lipitor 40 mg orally once every day. 11. COPD, stable. 12. History of CAD status post myocardial infarction and prior PCI of the LAD. Continue Lipitor 40 mg orally once every day. 13. History of the depressive disorder. Continue venlafaxine 75 mg orally in the morning and 150 mg at bedtime. 14. Overactive bladder. Continue Vesicare 10mg every day. 15. DVT prophylaxis. Heparin drip. 16. GI prophylaxis. Protonix 40 mg IV push every 24 hours. 17. Morbid obesity with BMI of 46. CODE STATUS: No code Discharge plan: To be determined Impression and plan of care have been directed as dictated by the signing physician. Clare Mak nurse practitioner acting as scribe for signing physician. Time with Patient: Greater than 30
[2017-02-16] MEDS: amLODIPine 5 MG TAB PO SCH (11:50)
[2017-02-16 11:58] LABS: Glucose,Whole Blood 198 mg/dL (75-99)
--- NOTE | 2017-02-16 12:52 | P.GSCN ---
History of Present Illness Consult date: 02/16/17 Reason for Consult: Renal mass Requesting physician: Clare Mak History of present illness: The patient is a 67-year-old white female admitted with mental status changes. She has a history of liver cancer, which is being managed at [facility]. She is followed by both a retail director and an interventional radiologist, and is undergoing computed tomography scan imaging semiannually. She recently underwent a computed tomography scan, revealing that the hepatic lesion was stable. There has never been any mention made of a renal mass, per the patient and her daughter. A computed tomography scan obtained at the time of this admission was of poor quality, due to motion artifact. However, there appeared to suggest the presence of a 1.4 cm heterogenous right renal mass. Review of Systems - Genitourinary Genitourinary: Denies hematuria - Neurological Reports confusion Past Medical History Past Medical History: Atrial Fibrillation, Cancer, CVA/TIA, Diabetes Mellitus, Hyperlipidemia, Sleep Apnea/CPAP/BIPAP Additional Past Medical History / Comment(s): Morbid obesity, coronary artery disease with previous angioplasty to LAD in 2009, hypertension, hepatocellular carcinoma, obstructive sleep apnea, diabetes mellitus, hyperlipidemia, CVA/TIA, chronic atrial fibrillation, hiatal hernia, spinal stenosis, degenerative disc disease involving L3 and L4, diabetic peripheral neuropathy, hyperactive bladder , history of septic left knee joint post arthroplasty History of Any Multi-Drug Resistant Organisms: MRSA Year Discovered:: 2011 MDRO Source:: left knee Past Surgical History: Bariatric Surgery, Heart Catheterization With Stent, Hernia Repair, Orthopedic Surgery Additional Past Surgical History / Comment(s): lap band placed in 2003, prolapsed, removed in 2005, neuro stimulator in back, one stent to LAD after stress test. Left knee arthroscopic surgery, right total knee arthroplasty, left total knee arthroplasty 10/01/2011, repair of quadriceps tendon 08/21/2011 , left knee patellar tendon repair 09/24/2011, removal of the hardware of the left total knee arthroplasty with implantation of the antibiotic spacer October 08 2011, total left knee hardware replacement in May 2012. EGD on March [address] Duane Crawford. No changes to surgical history per patient (02/15/17), cholecystectomy, tonsillectomy, adenoidectomy, total abdominal hysterectomy and bilateral salpingo-oophorectomy, repair of a quadriceps tendon, trigger finger, left hand in 2003 with subsequent reversal in 2005 Past Anesthesia/Blood Transfusion Reactions: No Reported Reaction Date of Last Stent Placement:: 05/17/2010 Past Psychological History: Anxiety, Depression Additional Psychological History / Comment(s): Patient is living at home with daughter, son-in-law, grandchildren and great-grandchildren. There are multiple dogs and cats in home Smoking Status: Never smoker Past Alcohol Use History: None Reported Past Drug Use History: Opiates - Past Family History Mother Family Medical History: Congestive Heart Failure (CHF) Father Family Medical History: Myocardial Infarction (ME) Medications and Allergies Home Medications Medication Instructions Recorded Confirmed Type Bisacodyl [Dulcolax] 5 mg PO DAILY 08/10/14 02/14/17 History Gabapentin [Neurontin] 300 mg PO QAM 08/10/14 02/14/17 History LORazepam [Ativan] 1 mg PO DAILY PRN 08/10/14 02/14/17 History Pantoprazole Sodium 40 mg PO DAILY 08/10/14 02/14/17 History Penciclovir 1% Cream [Denavir 1 applic TOPICAL 5XD PRN 08/10/14 02/14/17 History Cream] Solifenacin Succinate [Vesicare] 10 mg PO HS 08/10/14 02/14/17 History Calcium Carbonate [Calcium] 600 mg PO DAILY 06/26/15 02/14/17 History fentaNYL 75MCG/HR PATCH [Duragesic 1 patch TRANSDERM Q72H 06/26/15 02/14/17 History 75MCG/HR] Meclizine [Antivert] 25 mg PO DAILY PRN 03/26/16 02/14/17 History Ondansetron [Zofran] 4 mg PO Q12HR PRN 03/26/16 02/14/17 History Fluconazole [Diflucan] 100 mg PO DAILY 04/02/16 02/14/17 History Gabapentin [Neurontin] 600 mg PO HS 04/02/16 02/14/17 History Venlafaxine HCl ER [Effexor XR] 75 mg PO QAM 04/02/16 02/14/17 History Venlafaxine HCl ER [Effexor XR] 150 mg PO HS 04/02/16 02/14/17 History Nystatin [Nystop] 1 applic TOPICAL BID PRN 02/14/17 02/14/17 History Allergies Allergy/AdvReac Type Severity Reaction Status Date / Time metformin HCl Allergy Unknown Verified 02/14/17 22:02 [From Glucophage] Surgical - Exam Vital Signs Temp Pulse Resp BP Pulse Ox 98 F 100 26 H 176/100 96 02/14/17 21:45 02/14/17 21:45 02/14/17 21:45 02/14/17 21:45 02/14/17 21:45 - General well developed, well nourished, no distress, obese - Abdomen Abdomen: soft, non tender, no guarding, no rigid, no rebound Results - Labs 02/16/17 06:01 02/16/17 06:01 Abnormal Lab Results - Last 24 Hours (Table) 02/15/17 02/15/17 02/15/17 Range/Units 12:13 12:13 12:13 WBC (3.8-10.6) k/uL Sodium 136 L (137-145) mmol/L Creatinine (0.52-1.04) mg/dL Glucose (74-99) mg/dL POC Glucose (mg/dL) (75-99) mg/dL Plasma Lactic Acid Fabio 3.8 H* (0.7-2.0) mmol/L Magnesium 1.5 L (1.6-2.3) mg/dL TSH 7.790 H (0.465-4.680) mIU/L 02/15/17 02/15/17 02/16/17 Range/Units 16:41 22:11 06:01 WBC 11.3 H (3.8-10.6) k/uL Sodium (137-145) mmol/L Creatinine (0.52-1.04) mg/dL Glucose (74-99) mg/dL POC Glucose (mg/dL) 208 H 222 H (75-99) mg/dL Plasma Lactic Acid Fabio (0.7-2.0) mmol/L Magnesium (1.6-2.3) mg/dL TSH (0.465-4.680) mIU/L 02/16/17 02/16/17 02/16/17 Range/Units 06:01 06:33 11:54 WBC (3.8-10.6) k/uL Sodium 135 L (137-145) mmol/L Creatinine 1.20 H (0.52-1.04) mg/dL Glucose 170 H (74-99) mg/dL POC Glucose (mg/dL) 154 H 198 H (75-99) mg/dL Plasma Lactic Acid Fabio (0.7-2.0) mmol/L Magnesium (1.6-2.3) mg/dL TSH (0.465-4.680) mIU/L Diabetes panel 02/15/17 02/16/17 Range/Units 12:13 06:01 Sodium 136 L 135 L (137-145) mmol/L Potassium 4.6 4.0 (3.5-5.1) mmol/L Chloride 99 100 (98-107) mmol/L Carbon Dioxide 24 24 (22-30) mmol/L BUN 12 (7-17) mg/dL Creatinine 1.20 H (0.52-1.04) mg/dL Glucose 170 H (74-99) mg/dL Calcium 8.8 (8.4-10.2) mg/dL Thyroid panel 02/15/17 Range/Units 12:13 TSH 7.790 H (0.465-4.680) mIU/L Calcium panel 02/16/17 Range/Units 06:01 Calcium 8.8 (8.4-10.2) mg/dL Pituitary panel 02/15/17 02/16/17 Range/Units 12:13 06:01 Sodium 136 L 135 L (137-145) mmol/L Potassium 4.6 4.0 (3.5-5.1) mmol/L Chloride 99 100 (98-107) mmol/L Carbon Dioxide 24 24 (22-30) mmol/L BUN 12 (7-17) mg/dL Creatinine 1.20 H (0.52-1.04) mg/dL Glucose 170 H (74-99) mg/dL Calcium 8.8 (8.4-10.2) mg/dL TSH 7.790 H (0.465-4.680) mIU/L Adrenal panel 02/15/17 02/16/17 Range/Units 12:13 06:01 Sodium 136 L 135 L (137-145) mmol/L Potassium 4.6 4.0 (3.5-5.1) mmol/L Chloride 99 100 (98-107) mmol/L Carbon Dioxide 24 24 (22-30) mmol/L BUN 12 (7-17) mg/dL Creatinine 1.20 H (0.52-1.04) mg/dL Glucose 170 H (74-99) mg/dL Calcium 8.8 (8.4-10.2) mg/dL - Imaging CT scan - abdomen: report reviewed, image reviewed Assessment and Plan (1) Right renal mass Status: Acute Plan: The patient is a 67-year-old woman with multiple comorbid conditions. A computed tomography scan has suggested the presence of a 1.4 cm heterogenous right renal mass, though the quality of the scan was poor due to motion artifact. She has a history of liver cancer, and is undergoing semiannual imaging for this. I do not recommend any intervention for a renal lesion at this time, but I did explain to the patient and her daughter the fact that the scan suggested the presence of a renal mass, which may be malignant in nature. I have suggested she bring this to the attention of her physicians at [facility], so that this can be monitored along with the hepatic lesion. Please notify me if I can be of any further assistance. Time with Patient: Less than 30
--- NOTE | 2017-02-16 14:44 | P.PN ---
Subjective 67-year-old female one of Dr. Burnham with a previous medical history significant for coronary artery disease status post PCI and stent placement of the LAD back in 2009 with ischemic cardiomyopathy, hypertension and hypertensive perivascular disease with left ventricular hypertrophy, chronic kidney disease stage III, obstructive sleep apnea, CVA, paroxysmal atrial fibrillation, septic left knee arthroplasty, liver cancer in the care of [facility]. 67-year-old morbidly obese female patient was hospitalized because of altered mental status and generalized body weakness. Lactic acid was mildly elevated at a time of admission. She denied having any chest pain. No cough or sputum production. No pleurisy. No hemoptysis pH is currently on room air. She is afebrile. She is known to have obstructive sleep apnea yet she is not compliant to CPAP therapy. She also has history of a liver cancer him a hepatocellular carcinoma, treated through localized embolization, and she has been told by the oncologist at [facility] that the tumor has been under the check. No history of any fever or chills. No headaches. No seizure activity. No dysuria frequency or urgency. No open wounds or sores. She has cutaneous fungal skin infection involving the groin. This is likely Miryam. She is currently on Diflucan. The patient underwent a CAT scan of the brain that showed mild atrophy and chronic small vessel ischemia. No acute intracranial abnormality. Evidence of mild left-sided mastoiditis. CAT scan of the abdomen and pelvis revealed a probable 1.4 cm heterogeneous enhancing mass in the right kidney suspicious for malignancy. Lobulated contour the and. Right hepatic lobe with ill-defined small hypodensities. Metastatic disease is not ruled out. CTA chest finding a limited study of the lower branches but no evidence of pulmonary embolus with an upper and mid lungs. Hazy areas of atelectasis throughout the lungs. No calf pain. No swelling lower extremities. She has atrial fibrillation however she has not been found to be a good candidate for anticoagulation. On 02/16/2017, the patient is awake and alert and she is following commands and answering questions appropriately. Her mental status changes completely recovered. She is doing well. No respiratory difficulties. She is on room air oxygen. White cell count is nonelevated. Urine cultures are not to be contaminated. Meanwhile the patient is still covered with broad-spectrum antibiotics. She is afebrile and hemodynamically stable. Objective - Vital Signs Vital signs: Vital Signs Temp 97.7 F 02/16/17 11:42 Pulse 55 L 02/16/17 11:42 Resp 16 02/16/17 11:42 BP 151/78 02/16/17 11:42 Pulse Ox 90 L 02/16/17 11:42 Intake & Output 02/15/17 02/16/17 02/16/17 18:59 06:59 18:59 Intake Total 794 928 4958 Output Total 1000 550 800 Balance -280 -150 290 Weight 122.5 kg Intake: IV 600 400 850 Magnesium Sulfate-D5w Pmx 200 1 gm In Dextrose/Water 1 100ml.bag @ 100 mls/hr IVPB Q1H BRANDY Rx#: [id number] Sodium Chloride 0.9% 1, 400 400 800 000 ml @ 50 mls/hr IV . Q20H BRANDY Rx#:[id number] cefTRIAXone 1,000 mg In 50 Sodium Chloride 0.9% 50 ml @ 100 mls/hr IVPB 0600 BRANDY Rx#:[id number] Oral 120 240 Output: Urine 1000 550 800 Other: Voiding Method Bedside Commode Bedside Commode Bedside Commode # Voids 150 1 # Bowel Movements 0 0 - Exam Morbidly obese, calm and comfortable, not consistent distress. My normal had neck is supple and short and there is significant crowding of posterior pharynx. No goiter or neck masses.Lungs were clear to auscultation and percussion, and with normal diaphragmatic excursion. No wheezes or rales were noted. My normal heart abdomen is obese and the patient's organs cannot be accurately palpated. There is no direct tenderness. No rebound tenderness. No guarding. Extremities reveal trace edema lower eczematous bilaterally. There is no cyanosis or clubbing. Neurologically she is awake and she is following commands and answering questions and she is moving all 4 extremities without any limitation. - Labs CBC & Chem 7: 02/16/17 06:01 02/16/17 06:01 Labs: Abnormal Lab Results - Last 24 Hours (Table) 02/15/17 02/15/17 02/16/17 Range/Units 16:41 22:11 06:01 WBC 11.3 H (3.8-10.6) k/uL Sodium (137-145) mmol/L Creatinine (0.52-1.04) mg/dL Glucose (74-99) mg/dL POC Glucose (mg/dL) 208 H 222 H (75-99) mg/dL 02/16/17 02/16/17 02/16/17 Range/Units 06:01 06:33 11:54 WBC (3.8-10.6) k/uL Sodium 135 L (137-145) mmol/L Creatinine 1.20 H (0.52-1.04) mg/dL Glucose 170 H (74-99) mg/dL POC Glucose (mg/dL) 154 H 198 H (75-99) mg/dL Assessment and Plan Plan: Assessment 1 change in mental status, likely encephalopathy, recovered. Rule out septic source. Rule out drug effect. The lactic acid level has normalized and is down to 1.6. Ammonia level is nonelevated. 2 previous history of septic shock secondary to her urine checked infection and vent-dependent history failure in 2013 3 Liver cancer/hepatocellular carcinoma status post localized chemotherapy 4 morbid obesity 5 obstructive sleep apnea 6 diabetes mellitus 7 diabetic peripheral neuropathy 8 hypertension 9 previous pediatric surgery in the form of lap and that was subsequently removed 10 anxiety/depression 11 chronic atrial fibrillation 12 coronary artery disease with previous coronary intervention involving the LAD 13 Lactic acidosis, mild 14 candidal intercrural infection. Plan Continue current treatment. Patient is stable for now. Mentation is improved. Awaiting blood cultures. We'll follow
--- NOTE | 2017-02-16 16:24 | PN ---
This lady has history of liver cancer, probable renal tumor, paroxysmal atrial fibrillation, hypertension, and history of coronary artery disease, details unavailable. Since yesterday, after beta lupe was started, she has maintained sinus rhythm with rare episodes of atrial fibrillation, On reviewing the pulmonary CT angiogram Dr. Artis also felt that probability of pulmonary embolism is not high and therefore anticoagulation has been held. She is doing better this morning. Denies any chest discomfort. Her shortness of breath has improved. She seems to be much better, oriented, and some of her strength is also back. We will continue her current medications including beta lupe and based on clinical course, I will make further recommendations. Will add subcu heparin q.12 hours 5000 units.
[2017-02-16 16:52] LABS: Glucose,Whole Blood 197 mg/dL (75-99)
[2017-02-16 21:19] LABS: Glucose,Whole Blood 155 mg/dL (75-99)
[2017-02-16] MEDS: ATORVASTATIN 40 MG TAB PO SCH (21:22)
[2017-02-16] MEDS: OXYBUTYNIN XL 5 MG TAB.ER.24 PO SCH (21:23)
[2017-02-16] MEDS: INSULIN GLARGINE 100 UNIT/ML 10 ML VIAL SQ SCH (21:23)
[2017-02-16] MEDS: HEPARIN SODIUM,PORCINE 5,000 UNIT/ML 1 ML VIAL SQ SCH (23:29)
[2017-02-17 02:30] VITALS: RESP 18
[2017-02-17 06:34] LABS: Glucose,Whole Blood 152 mg/dL (75-99)
[2017-02-17] MEDS: oxyCODONE-APAP 10-325MG 1 EACH TAB PO PRN ×2 (06:34→14:37)
[2017-02-17] MEDS: INSULIN LISPRO (humaLOG) 300 UNIT/3 ML VIAL SQ SCH ×3 (06:34→16:56)
[2017-02-17] MEDS: PANTOPRAZOLE 40 MG TABLET PO SCH (06:34)
[2017-02-17 06:46] LABS: CHCM 29.7; HCT 43.9 % (34.0-46.0); HDW 2.59; HGB 13.7 gm/dL (11.4-16.0); Hypochromasia Marked; MCH 26.3 pg (25.0-35.0); MCHC 31.1 g/dL (31.0-37.0); MCV 84.5 fL (80.0-100.0); Mean Platelet Volume 7.5; RBC 5.19 m/uL (3.80-5.40); RDW 14.7 % (11.5-15.5); WBC 10.1 k/uL (3.8-10.6)
[2017-02-17 07:01] LABS: Calcium 8.7 mg/dL (8.4-10.2); Potassium 4.2 mmol/L (3.5-5.1)
[2017-02-17] MEDS ORDERED: FUROSEMIDE 40 MG TAB PO SCH (09:00)
[2017-02-17] MEDS: POTASSIUM CHLORIDE ER 10 MEQ TAB.ER.PRT PO SCH (09:47)
[2017-02-17] MEDS: METOPROLOL TARTRATE 50 MG TAB PO SCH (09:47)
[2017-02-17] MEDS: MAGNESIUM OXIDE 400 MG TAB PO SCH (09:47)
[2017-02-17] MEDS: GABAPENTIN 300 MG CAP PO SCH (09:48)
[2017-02-17] MEDS: amLODIPine 5 MG TAB PO SCH (09:48)
[2017-02-17] MEDS: FLUCONAZOLE 100 MG TAB PO SCH (09:49)
[2017-02-17] MEDS: CALCIUM CARBONATE 500 MG CHEWABLE PO SCH (09:49)
[2017-02-17] MEDS: HEPARIN SODIUM,PORCINE 5,000 UNIT/ML 1 ML VIAL SQ SCH (09:50)
[2017-02-17] MEDS: VENLAFAXINE HCL ER 75 MG CAP PO SCH (09:51)
--- NOTE | 2017-02-17 10:46 | ECHOF ---
Referral Reason:CHF MEASUREMENTS -------- HEIGHT: 162.6 cm WEIGHT: 122.5 kg BP: 143/77 IVSd: 1.6 cm (0.6 - 1.1) LVIDd: 4.4 cm (3.9 - 5.3) LVPWd: 1.7 cm (0.6 - 1.1) IVSs: 1.9 cm LVIDs: 2.3 cm LVPWs: 1.8 cm Ao Diam: 3.5 cm (2.0 - 3.7) AV Cusp: 2.0 cm (1.5 - 2.6) LA Diam: 3.2 cm (2.7 - 3.8) MV EXCURSION: 11.800 mm (> 18.000) MV EF SLOPE: 64 mm/s (70 - 150) EPSS: 1.5 cm RAP: 5.00 mmHg RVSP: 10.57 mmHg FINDINGS -------- Sinus rhythm with extra systolic beats. This was a technically difficult study with suboptimal views. This was a technically difficult study with suboptimal apical views. There is moderate concentric left ventricular hypertrophy. Overall left ventricular systolic function is low-normal with, an EF between 50 - 55 %. The right ventricle is normal in size and function. The left atrial size is normal. The right atrium is normal in size. 1.5mg of Definity was utilized for enhancement of images The aortic valve is trileaflet, and appears structurally normal. No aortic stenosis or regurgitation. The mitral valve was not well visualized. There is trace mitral regurgitation. The tricuspid valve was not well visualized. Trace tricuspid regurgitation present. Pulmonic valve appears structurally normal. The pericardium is normal. CONCLUSIONS -------- 1. Sinus rhythm with extra systolic beats. 2. The aortic valve is trileaflet, and appears structurally normal. No aortic stenosis or regurgitation. 3. The mitral valve was not well visualized. 4. There is trace mitral regurgitation. 5. The tricuspid valve was not well visualized. 6. Trace tricuspid regurgitation present. 7. Pulmonic valve appears structurally normal. 8. The pericardium is normal. 9. This was a technically difficult study with suboptimal views. 10. This was a technically difficult study with suboptimal apical views. 11. There is moderate concentric left ventricular hypertrophy. 12. Overall left ventricular systolic function is low-normal with, an EF between 50 - 55 %. 13. The right ventricle is normal in size and function. 14. The left atrial size is normal. 15. The right atrium is normal in size. 16. 1.5mg of Definity was utilized for enhancement of images NEUROLOGIST: Rashida Dougherty RDCS
[2017-02-17 11:48] LABS: Glucose,Whole Blood 155 mg/dL (75-99)
--- NOTE | 2017-02-17 12:36 | P.PN ---
Subjective Principal diagnosis: Acute metabolic encephalopathy 67-year-old female one of Dr. Burnham with a previous medical history significant for coronary artery disease status post PCI and stent placement of the LAD back in 2009 with ischemic cardiomyopathy, hypertension and hypertensive perivascular disease with left ventricular hypertrophy, chronic kidney disease stage III, obstructive sleep apnea, CVA, paroxysmal atrial fibrillation, septic left knee arthroplasty, liver cancer in the care of [facility]. 67-year-old morbidly obese female patient was hospitalized because of altered mental status and generalized body weakness. Lactic acid was mildly elevated at a time of admission. She denied having any chest pain. No cough or sputum production. No pleurisy. No hemoptysis pH is currently on room air. She is afebrile. She is known to have obstructive sleep apnea yet she is not compliant to CPAP therapy. She also has history of a liver cancer him a hepatocellular carcinoma, treated through localized embolization, and she has been told by the oncologist at [facility] that the tumor has been under the check. No history of any fever or chills. No headaches. No seizure activity. No dysuria frequency or urgency. No open wounds or sores. She has cutaneous fungal skin infection involving the groin. This is likely Miryam. She is currently on Diflucan. The patient underwent a CAT scan of the brain that showed mild atrophy and chronic small vessel ischemia. No acute intracranial abnormality. Evidence of mild left-sided mastoiditis. CAT scan of the abdomen and pelvis revealed a probable 1.4 cm heterogeneous enhancing mass in the right kidney suspicious for malignancy. Lobulated contour the and. Right hepatic lobe with ill-defined small hypodensities. Metastatic disease is not ruled out. CTA chest finding a limited study of the lower branches but no evidence of pulmonary embolus with an upper and mid lungs. Hazy areas of atelectasis throughout the lungs. No calf pain. No swelling lower extremities. She has atrial fibrillation however she has not been found to be a good candidate for anticoagulation. On 02/16/2017, the patient is awake and alert and she is following commands and answering questions appropriately. Her mental status changes completely recovered. She is doing well. No respiratory difficulties. She is on room air oxygen. White cell count is nonelevated. Urine cultures are not to be contaminated. Meanwhile the patient is still covered with broad-spectrum antibiotics. She is afebrile and hemodynamically stable. On 02/17/2017, patient is awake, alert, in no distress. She has no focal neurologic deficit. Denies any specific complaints. CBC is normal and electrolytes profile is normal creatinine is 1.23. Discussed her condition with the admitting physician, and I cleared the patient for possible discharge today. Objective - Vital Signs Vital signs: Vital Signs Temp 97.6 F 02/17/17 08:00 Pulse 59 L 02/17/17 08:00 Resp 18 02/17/17 08:30 BP 138/81 02/17/17 08:00 Pulse Ox 97 02/17/17 08:30 Intake & Output 02/16/17 02/17/17 02/17/17 18:59 06:59 18:59 Intake Total 1330 600 354 Output Total 800 150 0 Balance 530 450 354 Weight 122.5 kg Intake: IV 850 600 Sodium Chloride 0.9% 1, 800 600 000 ml @ 50 mls/hr IV . Q20H BRANDY Rx#:[id number] cefTRIAXone 1,000 mg In 50 Sodium Chloride 0.9% 50 ml @ 100 mls/hr IVPB 0600 BRANDY Rx#:[id number] Oral 480 354 Output: Urine 800 150 Stool 0 0 Other: Voiding Method Bedside Commode Bedside Commode Bedside Commode # Voids 0 # Bowel Movements 0 - Exam Morbidly obese, calm and comfortable, not consistent distress. My normal had neck is supple and short and there is significant crowding of posterior pharynx. No goiter or neck masses.Lungs were clear to auscultation and percussion, and with normal diaphragmatic excursion. No wheezes or rales were noted. My normal heart abdomen is obese and the patient's organs cannot be accurately palpated. There is no direct tenderness. No rebound tenderness. No guarding. Extremities reveal trace edema lower eczematous bilaterally. There is no cyanosis or clubbing. Neurologically she is awake and she is following commands and answering questions and she is moving all 4 extremities without any limitation. - Labs CBC & Chem 7: 02/17/17 06:13 02/17/17 06:13 Labs: Abnormal Lab Results - Last 24 Hours (Table) 02/16/17 02/16/17 02/17/17 Range/Units 16:46 21:14 06:03 Creatinine (0.52-1.04) mg/dL Glucose (74-99) mg/dL POC Glucose (mg/dL) 197 H 155 H 152 H (75-99) mg/dL 02/17/17 02/17/17 Range/Units 06:13 11:46 Creatinine 1.23 H (0.52-1.04) mg/dL Glucose 158 H (74-99) mg/dL POC Glucose (mg/dL) 155 H (75-99) mg/dL Microbiology - Last 24 Hours (Table) 02/15/17 14:39 Blood Culture - Preliminary Blood No Growth after 24 hours 02/15/17 14:07 Blood Culture - Preliminary Blood No Growth after 24 hours Assessment and Plan Plan: 1 change in mental status, likely encephalopathy, recovered. Rule out septic source. Rule out drug effect. The lactic acid level has normalized and is down to 1.6. Ammonia level is nonelevated. 2 previous history of septic shock secondary to her urine checked infection and vent-dependent history failure in 2013 3 Liver cancer/hepatocellular carcinoma status post localized chemotherapy 4 morbid obesity 5 obstructive sleep apnea 6 diabetes mellitus 7 diabetic peripheral neuropathy 8 hypertension 9 previous pediatric surgery in the form of lap and that was subsequently removed 10 anxiety/depression 11 chronic atrial fibrillation 12 coronary artery disease with previous coronary intervention involving the LAD 13 Lactic acidosis, mild 14 candidal intercrural infection. Recommendation: Agree with discharge planning today, follow-up on outpatient basis if necessary. Time with Patient: Less than 30
[2017-02-17] MEDS: BISACODYL 5 MG TABLET.DR PO SCH (12:44)
--- NOTE | 2017-02-17 13:44 | P.DS ---
Providers Date of admission: 02/15/17 01:29 Expected date of discharge: 02/17/17 Attending physician: Cecy Odom Consults: 02/15/17 01:31 Consult Physician Urgent Consulting Provider: Asa Sands Consult Reason/Comments: afib Do you want consulting provider notified?: Yes 02/15/17 09:18 Consult Physician Routine Consulting Provider: Thaddeus Wallace Consult Reason/Comments: eval kidney mass Do you want consulting provider notified?: Yes 02/15/17 12:35 Consult Physician Routine Consulting Provider: Jama Mcgee Consult Reason/Comments: abnormal CTA Do you want consulting provider notified?: Yes Primary care physician: Shane Tej Lds Hospital Course: This is a 67-year-old female one of Dr. Burnham with a previous medical history significant for coronary artery disease status post PCI and stent placement of the LAD back in 2009 with ischemic cardiomyopathy, hypertension and hypertensive perivascular disease with left ventricular hypertrophy, chronic kidney disease stage III, obstructive sleep apnea, CVA, paroxysmal atrial fibrillation, septic left knee arthroplasty, liver cancer in the care of [facility]. Patient was brought into [facility] emergency center due to altered mental status and weakness. Patient has also had increased sleeping today and apparently was normal yesterday. There is also concern for shortness of breath and complaining of severe abdominal pain. Patient is seen on the selective care unit. She is a very poor historian. She does states she had a fall with back and stomach pain and increasing weakness with nausea and vomiting. Her temperature at home was 98. She does state that she is still on chemotherapy at [facility]. She underwent a CAT scan of the brain that showed mild atrophy and chronic small vessel ischemia. No acute intracranial abnormality. Evidence of mild left-sided mastoiditis. CAT scan of the abdomen and pelvis revealed a probable 1.4 cm heterogeneous enhancing mass in the right kidney suspicious for malignancy. Lobulated contour the and. Right hepatic lobe with ill-defined small hypodensities. Metastatic disease is not ruled out. CTA chest finding a limited study of the lower branches but no evidence of pulmonary embolus with an upper and mid lungs. Hazy areas of atelectasis throughout the lungs. Consults were placed for cardiology regarding atrial fibrillation which is a controlled rate at this time. Patient is not on anticoagulation due to her underlying liver disease. Consult placed with urology to evaluate kidney mass. 02/16: Pulmonary embolism was ruled out by Dr. Mcgee. Patient will not be on any anticoagulation due to her underlying liver cancer. Patient states she is less shortness of breath today. Mental status is improved. She denies abdominal pain. No CODE STATUS determined. Patient does have power of web content executive papers. Patient has been seen by cardiology and started on metoprolol. Plan to start losartan tomorrow. 02/17: White count is normal. Electrolytes within normal limits. BUN 15 creatinine 1.23. Blood blood glucose running between 152 and 197. Hemoglobin A1c was 7.5. Patient has been seen by Dr. Paul with recommendations to follow-up with her oncologist regarding the renal mass. Echocardiogram reveals mild mitral regurgitation, trace tricuspid regurgitation, small pericardial effusion, mild concentric left ventricular hypertrophy with EF of 55-60%. Cardiology has cleared her for discharge. Patient states she is feeling much better. Urine culture came back with contamination. Patient will be discharged on Ceftin assuming that she had a urinary tract infection causing the change in mental status. Patient has also been cleared for discharge by Dr. Bowers. Patient was noted to have 1 low pulse ox reading of 88% on room air. Patient was checked after ambulation by physical therapy and pulse ox was 92%. She will be discharged home today in stable condition. Discharge diagnoses: 1. Metabolic encephalopathy possibly due to urinary tract infection and sepsis. 2. Atrial fibrillation presenting with minimally rapid ventricular response. 2. Abdominal pain which may be chronic due to her underlying history of liver cancer. 4. New finding of mass in the right kidney. 5. CTA of the chest with possible pulmonary embolism--ruled out by Dr. Mcgee. 6. Diabetes mellitus type 2. Hemoglobin A1c 7.5. 7. Hypertension and hypertensive cardiovascular disease. 8. Paroxysmal atrial fibrillation currently in sinus rhythm. 9. Liver cancer. Under the care of hematology oncology at [facility]. 10. Hyperlipidemia. 11. COPD, stable. 12. History of CAD status post myocardial infarction and prior PCI of the LAD. 13. History of the depressive disorder, recurrent. 14. Overactive bladder. 15. Morbid obesity with BMI of 46. Discharge plan: Return home with family Impression and plan of care have been directed as dictated by the signing physician. Clare Mak nurse practitioner acting as scribe for signing physician. Patient Condition at Discharge: Good Plan - Discharge Summary New Discharge Prescriptions: Cefuroxime [Ceftin] 250 mg PO BID #16 tablet Metoprolol Tartrate [Lopressor] 50 mg PO BID #60 tab Discharge Medication List Atorvastatin [Lipitor] 40 mg PO HS #30 tablet 04/06/14 [Rx] Potassium Chloride ER [K-Dur 10] 10 meq PO DAILY #30 tab.er.prt 04/06/14 [Rx] amLODIPine [Norvasc] 5 mg PO DAILY #30 tab 04/06/14 [Rx] Bisacodyl [Dulcolax] 5 mg PO DAILY 08/10/14 [History] Gabapentin [Neurontin] 300 mg PO QAM 08/10/14 [History] LORazepam [Ativan] 1 mg PO DAILY PRN 08/10/14 [History] Pantoprazole Sodium 40 mg PO DAILY 08/10/14 [History] Penciclovir 1% Cream [Denavir Cream] 1 applic TOPICAL 5XD PRN 08/10/14 [History] Solifenacin Succinate [Vesicare] 10 mg PO HS 08/10/14 [History] Calcium Carbonate [Calcium] 600 mg PO DAILY 06/26/15 [History] fentaNYL 75MCG/HR PATCH [Duragesic 75MCG/HR] 1 patch TRANSDERM Q72H 06/26/15 [ History] Meclizine [Antivert] 25 mg PO DAILY PRN 03/26/16 [History] Ondansetron [Zofran] 4 mg PO Q12HR PRN 03/26/16 [History] Fluconazole [Diflucan] 100 mg PO DAILY 04/02/16 [History] Gabapentin [Neurontin] 600 mg PO HS 04/02/16 [History] Venlafaxine HCl ER [Effexor XR] 75 mg PO QAM 04/02/16 [History] Venlafaxine HCl ER [Effexor XR] 150 mg PO HS 04/02/16 [History] Insulin Glargine,Hum.rec.anlog [Lantus Solostar] 60 unit SQ BID #5 insuln.pen [Rx] Insulin Lispro [humaLOG Kwikpen] 6 unit SQ TID #5 insuln.pen 04/05/16 [Rx] oxyCODONE-APAP 10-325MG [Percocet 10-325 mg] 1 tab PO Q8H PRN #90 tab 04/05/16 [ Rx] Nystatin [Nystop] 1 applic TOPICAL BID PRN 02/14/17 [History] Cefuroxime [Ceftin] 250 mg PO BID #16 tablet 02/17/17 [Rx] Furosemide [Lasix] 30 mg PO DAILY #30 tablet 02/17/17 [Rx] Metoprolol Tartrate [Lopressor] 50 mg PO BID #60 tab 02/17/17 [Rx] Follow up Appointment(s)/Referral(s): [facility] [Provider Group] - 2 Weeks Shane Burnham MD [Primary Care Provider] - 1 Week Jama Mcgee MD [STAFF PHYSICIAN] - 1 Week Discharge Disposition: HOME WITH HOME HEALTH SERVICES
[2017-02-17 14:25] VITALS: BP 126/77; PULSE 69; TEMP 98
[2017-02-17 16:33] LABS: Glucose,Whole Blood 150 mg/dL (75-99)
--- NOTE | 2017-02-17 19:11 | PN ---
This lady has paroxysmal atrial fibrillation, history of hepatocellular carcinoma. She is in sinus rhythm with short runs of atrial fibrillation. She is on beta lupe and subcutaneous heparin. Plan from a cardiac standpoint is to avoid anticoagulation. Continue rate control. Vital signs are stable. S1, S2 heard normally but distantly. Lungs are clear. Abdomen is distended. Lower extremities reveal diminished pulses. Central nervous system is normal. From a cardiac standpoint, she can be discharged and follow up with her oncologist and primary care physician.
== END 2017-02-17 19:12 | disposition home health service (06) | DRG 871 ==
LOC: EC 21:44 → 6SEL 02-15 01:29
PROVIDERS: ADMIT Internal Medicine; ATTEND Internal Medicine
DX: A41.9 Sepsis, unspecified organism (principal); G93.41 Metabolic encephalopathy; E87.2 Acidosis; C79.9 Secondary malignant neoplasm of unspecified site; E11.22 Type 2 diabetes mellitus with diabetic chronic kidney disease; C22.0 Liver cell carcinoma; Z68.42 Body mass index [BMI] 45.0-49.9, adult; E11.42 Type 2 diabetes mellitus with diabetic polyneuropathy; I13.10 Hypertensive heart and chronic kidney disease without heart failure, with stage 1 through stage 4 chronic kidney disease, or unspecified chronic kidney disease; F33.9 Major depressive disorder, recurrent, unspecified; N39.0 Urinary tract infection, site not specified; J98.11 Atelectasis; E78.5 Hyperlipidemia, unspecified; N18.3 Chronic kidney disease, stage 3 (moderate); Z66 Do not resuscitate; I48.0 Paroxysmal atrial fibrillation; E86.0 Dehydration; J44.9 Chronic obstructive pulmonary disease, unspecified; E66.01 Morbid (severe) obesity due to excess calories; I25.2 Old myocardial infarction; I25.10 Atherosclerotic heart disease of native coronary artery without angina pectoris; I25.5 Ischemic cardiomyopathy; I34.0 Nonrheumatic mitral (valve) insufficiency; I48.2 Chronic atrial fibrillation; L30.9 Dermatitis, unspecified; R93.421 Abnormal radiologic findings on diagnostic imaging of right kidney; B35.6 Tinea cruris; G89.3 Neoplasm related pain (acute) (chronic); I67.9 Cerebrovascular disease, unspecified; K44.9 Diaphragmatic hernia without obstruction or gangrene; M48.06 Spinal stenosis, lumbar region; M51.36 Other intervertebral disc degeneration, lumbar region; R14.0 Abdominal distension (gaseous); R53.1 Weakness; G47.33 Obstructive sleep apnea (adult) (pediatric); E78.00 Pure hypercholesterolemia, unspecified; H70.92 Unspecified mastoiditis, left ear; R11.2 Nausea with vomiting, unspecified; N32.81 Overactive bladder; F41.9 Anxiety disorder, unspecified; Z96.653 Presence of artificial knee joint, bilateral; Z98.84 Bariatric surgery status; Z90.710 Acquired absence of both cervix and uterus; Z87.891 Personal history of nicotine dependence; Z88.8 Allergy status to other drugs, medicaments and biological substances; Z95.5 Presence of coronary angioplasty implant and graft; Z86.73 Personal history of transient ischemic attack (TIA), and cerebral infarction without residual deficits; Z79.4 Long term (current) use of insulin; Z79.899 Other long term (current) drug therapy; Z82.49 Family history of ischemic heart disease and other diseases of the circulatory system; Z86.14 Personal history of Methicillin resistant Staphylococcus aureus infection; Z86.19 Personal history of other infectious and parasitic diseases; Z87.440 Personal history of urinary (tract) infections; Z96.89 Presence of other specified functional implants; Z90.722 Acquired absence of ovaries, bilateral; Z90.79 Acquired absence of other genital organ(s); Z91.19 Patient's noncompliance with other medical treatment and regimen; Z92.21 Personal history of antineoplastic chemotherapy; W18.30XA Fall on same level, unspecified, initial encounter; Y92.9 Unspecified place or not applicable
CPT/HCPCS: 36415; 70450; 71010; 71275; 74177; 80048; 80051; 80053; 80306; 81001; 82140; 82550; 82553; 83036; 83605; 83735; 83880; 84439; 84443; 84484; 85025; 85027; 85610; 85730; 87040; 87086; 93005; 93306; 96361; 96365; 96375; 96376; 99285

== ENCOUNTER 2017-05-18 10:37 | Inpatient (IN) | payer MEDICARE, OTHER ==
[2017-05-18] MEDS ORDERED: ONDANSETRON 4 MG/2 ML VIAL IVP STA ×2 (10:56→13:31)
[2017-05-18] MEDS ORDERED: SODIUM CHLORIDE 0.9% 1,000 ML IV STA ×3 (10:56→12:13)
[2017-05-18] MEDS ORDERED: HYDROmorphone 1 MG/ML 1 ML SYRINGE IVP STA ×2 (10:56→13:31)
--- NOTE | 2017-05-18 11:02 | ED ---
General Adult HPI <Brendon Jane - Last Filed: 05/18/17 14:23> - General Source: patient, RN notes reviewed Mode of arrival: wheelchair Limitations: no limitations <ChaoDelmer - Last Filed: 05/18/17 14:25> - General Chief complaint: Abdominal Pain Stated complaint: VOMITING Time Seen by Provider: 05/18/17 10:46 - History of Present Illness Initial comments: Patient is 67-year-old female significant past medical history for diabetes, hypertension, liver cancer, who presents emergency room today with chief complaint of increased nausea vomiting that began 2 days ago. Patient does admit that she's also had some diarrhea today that it's been loose no sign of blood. Patient does admit to pain throughout her body with chronic pain. She doesn't radiate to her using Percocet for breakthrough pain along with fentanyl patch. Patient does admit to pain in the abdomen midline. Patient denies any other complaints or associated symptoms. Patient denies any recent fever, chills , shortness of breath, chest pain, back pain, numbness or tingling, dysuria or hematuria, constipation or diarrhea, headaches or visual changes, or any other complaints. (Delmer Guidry) - Related Data Home Medications Medication Instructions Recorded Confirmed Gabapentin [Neurontin] 300 mg PO QAM 08/10/14 05/18/17 LORazepam [Ativan] 1 mg PO Q6H PRN 08/10/14 05/18/17 Pantoprazole Sodium 40 mg PO DAILY 08/10/14 05/18/17 Penciclovir 1% Cream [Denavir 1 applic TOPICAL 5XD PRN 08/10/14 05/18/17 Cream] Solifenacin Succinate [Vesicare] 10 mg PO HS 08/10/14 05/18/17 Calcium Carbonate [Calcium] 600 mg PO DAILY 06/26/15 05/18/17 fentaNYL 75MCG/HR PATCH [Duragesic 1 patch TRANSDERM Q72H 06/26/15 05/18/17 75MCG/HR] Ondansetron [Zofran] 4 mg PO Q8H PRN 03/26/16 05/18/17 Gabapentin [Neurontin] 600 mg PO HS 04/02/16 05/18/17 Nystatin [Nystop] 1 applic TOPICAL DAILY PRN 02/14/17 05/18/17 Bisacodyl [Dulcolax] 5 mg PO DAILY 05/18/17 05/18/17 Cholecalciferol [Vitamin D3] 1,000 unit PO DAILY 05/18/17 05/18/17 Furosemide [Lasix] 20 mg PO DAILY 05/18/17 05/18/17 Insulin Aspart [NovoLOG Flexpen] See Protocol SQ AC-TID 05/18/17 05/18/17 Insulin Glargine,Hum.rec.anlog 30 unit SQ QAM 05/18/17 05/18/17 [Lantus Solostar] Insulin Glargine,Hum.rec.anlog 70 unit SQ HS 05/18/17 05/18/17 [Lantus Solostar] Venlafaxine HCl [Effexor] 75 mg PO QAM 05/18/17 05/18/17 Venlafaxine HCl [Effexor] 150 mg PO HS 05/18/17 05/18/17 hydrOXYzine PAMOATE 25 mg PO HS PRN 05/18/17 05/18/17 oxyCODONE-APAP 10-325MG [Percocet 1 tab PO BID PRN 05/18/17 05/18/17 10-325 mg] Previous Rx's Medication Instructions Recorded Atorvastatin [Lipitor] 40 mg PO HS #30 tablet 04/06/14 Potassium Chloride ER [K-Dur 10] 10 meq PO DAILY #30 tab.er.prt 04/06/14 amLODIPine [Norvasc] 5 mg PO DAILY #30 tab 04/06/14 Metoprolol Tartrate [Lopressor] 50 mg PO BID #60 tab 02/17/17 Allergies Allergy/AdvReac Type Severity Reaction Status Date / Time metformin HCl Allergy Unknown Verified 05/18/17 11:22 [From Glucophage] Review of Systems ROS Other: All systems not noted in ROS Statement are negative. <Brendon Jane - Last Filed: 05/18/17 14:23> ROS Other: All systems not noted in ROS Statement are negative. <Delmer Guidry - Last Filed: 05/18/17 14:25> ROS Statement: Those systems with pertinent positive or pertinent negative responses have been documented in the HPI. Past Medical History Past Medical History: Atrial Fibrillation, Cancer, CVA/TIA, Diabetes Mellitus, Hyperlipidemia, Sleep Apnea/CPAP/BIPAP Additional Past Medical History / Comment(s): Morbid obesity, coronary artery disease with previous angioplasty to LAD in 2009, hypertension, hepatocellular carcinoma, obstructive sleep apnea, diabetes mellitus, hyperlipidemia, CVA/TIA, chronic atrial fibrillation, hiatal hernia, spinal stenosis, degenerative disc disease involving L3 and L4, diabetic peripheral neuropathy, hyperactive bladder , history of septic left knee joint post arthroplasty History of Any Multi-Drug Resistant Organisms: MRSA Date of last positivie culture/infection: 2010 MDRO Source:: left knee Past Surgical History: Adenoidectomy, Bariatric Surgery, Cholecystectomy, Heart Catheterization With Stent, Hernia Repair, Hysterectomy, Orthopedic Surgery, Tonsillectomy Additional Past Surgical History / Comment(s): lap band placed in 2003, prolapsed, removed in 2005, neuro stimulator in back, one stent to LAD after stress test. Left knee arthroscopic surgery, right total knee arthroplasty, left total knee arthroplasty 10/01/2011, repair of quadriceps tendon 08/21/2011 , left knee patellar tendon repair 09/24/2011, removal of the hardware of the left total knee arthroplasty with implantation of the antibiotic spacer October 08 2011, total left knee hardware replacement in May 2012. EGD on March [address] Duane Crawford. No changes to surgical history per patient (02/15/17), cholecystectomy, tonsillectomy, adenoidectomy, total abdominal hysterectomy and bilateral salpingo-oophorectomy, repair of a quadriceps tendon, trigger finger, left hand in 2003 with subsequent reversal in 2005 Past Anesthesia/Blood Transfusion Reactions: No Reported Reaction Date of Last Stent Placement:: 05/17/2010 Past Psychological History: Anxiety, Depression Smoking Status: Never smoker Past Alcohol Use History: None Reported Past Drug Use History: Opiates - Past Family History Mother Family Medical History: Congestive Heart Failure (CHF) Father Family Medical History: Myocardial Infarction ([place]) <Delmer Guidry - Last Filed: 05/18/17 14:25> General Exam <Brendon Jane - Last Filed: 05/18/17 14:23> Limitations: no limitations <Delmer Guidry - Last Filed: 05/18/17 14:25> - General Exam Comments Initial Comments: General: The patient is awake and alert, in no distress, and does not appear acutely ill. Patient is obese Eye: Pupils are equal, round and reactive to light, extra-ocular movements are intact. No nystagmus. There is normal conjunctiva bilaterally. No signs of icterus. Ears, nose, mouth and throat: There are moist mucous membranes and no oral lesions. Neck: The neck is supple, there is no tenderness or JVD. Cardiovascular: There is a regular rate and rhythm. No murmur, rub or gallop is appreciated. Respiratory: Lungs are clear to auscultation, respirations are non-labored, breath sounds are equal. No wheezes, stridor, rales, or rhonchi. Gastrointestinal: Patient abdomen soft on palpation. Normal bowel sounds. Patient patient does have tenderness epigastric and both on the right and left lower quadrants. No rebound tenderness. No guarding. Musculoskeletal: Normal ROM, no tenderness. Strength 5/5. Sensation intact. Pulses equal bilaterally 2+. Neurological: A&O x 3. CN II-XII intact, There are no obvious motor or sensory deficits. Coordination appears grossly intact. Speech is normal. Skin: Skin is warm and dry and no rashes or lesions are noted. Psychiatric: Cooperative, appropriate mood & affect, normal judgment. (Delmer Guidry) Course <Brendon Jnae - Last Filed: 05/18/17 14:23> <Delmer Guidry - Last Filed: 05/18/17 14:25> Vital Signs 05/18/17 05/18/17 10:39 13:28 Temperature 96.5 F L 98 F Pulse Rate 111 H 99 Respiratory 20 18 Rate Blood Pressure 145/88 171/81 O2 Sat by Pulse 95 95 Oximetry - Reevaluation(s) Reevaluation #1: 05/18/17 14:23 I did personally do a [id number] evaluation the patient did discuss findings with her family. Patient still nauseated so demonstrating some abdominal discomfort so her abdomen is soft and palpation and no tenderness on palpation at this time. I did discuss case Dr. Burnham patient will be admitted continue with with IV fluids and insulin. (Brendon Jane) Medical Decision Making - Lab Data Result diagrams: 05/18/17 11:15 05/18/17 11:15 <Brendon Jane - Last Filed: 05/18/17 14:23> - Lab Data Result diagrams: 05/18/17 11:15 05/18/17 11:15 <Delmer Guidry - Last Filed: 05/18/17 14:25> - Medical Decision Making Patient's CAT scan of the abdomen and pelvis reviewed and shows heterogeneous lobulated inferior right lobe of the liver that is also present on old computed tomography scan of 02/15/2017. This is more noticeable in the anterior inferior right lobe and could relate to return to work. They inferior right kidney shows somewhat lobulated appearance and was heterogeneous on the conscious computed tomography scan of 02/15/2017. Right kidney has not changed in size compared to last exam. There is small suprapubic ventral hernia on the right side that contains fat and is unchanged as read by radiologist Dr. Ohara. Case discussed in detail with attending physician Dr. Jane. Labs reviewed 16, 000 white count. Pulses be reactive to multiple episodes of nausea vomiting over the last 2 days. Patient's blood glucose 82 on labs. Started on insulin drip. The emergency room. Patient will be admitted to the hospital for further pain medication, nausea medication and hydration. (Delmer Guidry) - Lab Data Lab Results 05/18/17 05/18/17 05/18/17 Range/Units 11:15 11:15 11:30 WBC 16.3 H (3.8-10.6) k/uL RBC 5.75 H (3.80-5.40) m/uL Hgb 15.0 (11.4-16.0) gm/dL Hct 49.5 H (34.0-46.0) % MCV 86.1 (80.0-100.0) fL MCH 26.1 (25.0-35.0) pg MCHC 30.4 L (31.0-37.0) g/dL RDW 14.5 (11.5-15.5) % Plt Count 388 (150-450) k/uL Neutrophils % 84 % Lymphocytes % 12 % Monocytes % 3 % Eosinophils % 0 % Basophils % 1 % Neutrophils # 13.7 H (1.3-7.7) k/uL Lymphocytes # 2.0 (1.0-4.8) k/uL Monocytes # 0.4 (0-1.0) k/uL Eosinophils # 0.1 (0-0.7) k/uL Basophils # 0.1 (0-0.2) k/uL Hypochromasia Marked Sodium 131 L (137-145) mmol/L Potassium 5.2 H (3.5-5.1) mmol/L Chloride 92 L (98-107) mmol/L Carbon Dioxide 18 L (22-30) mmol/L Anion Gap 21 mmol/L BUN 12 (7-17) mg/dL Creatinine 0.87 (0.52-1.04) mg/dL Est GFR (MDRD) Af Amer >60 (>60 ml/min/1.73 sqM) Est GFR (MDRD) Non-Af >60 (>60 ml/min/1.73 sqM) Glucose 882 H* (74-99) mg/dL POC Glucose (mg/dL) (75-99) mg/dL POC Glu [employer]cre[employer] ID Calcium 10.0 (8.4-10.2) mg/dL Total Bilirubin 0.8 (0.2-1.3) mg/dL AST 23 (14-36) U/L ALT 20 (9-52) U/L Alkaline Phosphatase 247 H (38-126) U/L Total Protein 7.4 (6.3-8.2) g/dL Albumin 4.0 (3.5-5.0) g/dL Amylase <30 L (30-110) U/L Lipase 30 (23-300) U/L Urine Color Colorless Urine Appearance Clear (Clear) Urine pH 5.0 (5.0-8.0) Ur Specific [place] 1.024 (1.001-1.035) Urine Protein Negative (Negative) Urine Glucose (UA) 4+ H (Negative) Urine Ketones 1+ H (Negative) Urine Blood Negative (Negative) Urine Nitrite Negative (Negative) Urine Bilirubin Negative (Negative) Urine Urobilinogen <2.0 (<2.0) mg/dL Ur Leukocyte Esterase Negative (Negative) Acetone, Qual Negative (Negative) 05/18/17 Range/Units 13:23 WBC (3.8-10.6) k/uL RBC (3.80-5.40) m/uL Hgb (11.4-16.0) gm/dL Hct (34.0-46.0) % MCV (80.0-100.0) fL MCH (25.0-35.0) pg MCHC (31.0-37.0) g/dL RDW (11.5-15.5) % Plt Count (150-450) k/uL Neutrophils % % Lymphocytes % % Monocytes % % Eosinophils % % Basophils % % Neutrophils # (1.3-7.7) k/uL Lymphocytes # (1.0-4.8) k/uL Monocytes # (0-1.0) k/uL Eosinophils # (0-0.7) k/uL Basophils # (0-0.2) k/uL Hypochromasia Sodium (137-145) mmol/L Potassium (3.5-5.1) mmol/L Chloride (98-107) mmol/L Carbon Dioxide (22-30) mmol/L Anion Gap mmol/L BUN (7-17) mg/dL Creatinine (0.52-1.04) mg/dL Est GFR (MDRD) Af Amer (>60 ml/min/1.73 sqM) Est GFR (MDRD) Non-Af (>60 ml/min/1.73 sqM) Glucose (74-99) mg/dL POC Glucose (mg/dL) >600 H (75-99) mg/dL POC Glu [employer]cre[employer] ID Delfina Adams Calcium (8.4-10.2) mg/dL Total Bilirubin (0.2-1.3) mg/dL AST (14-36) U/L ALT (9-52) U/L Alkaline Phosphatase (38-126) U/L Total Protein (6.3-8.2) g/dL Albumin (3.5-5.0) g/dL Amylase (30-110) U/L Lipase (23-300) U/L Urine Color Urine Appearance (Clear) Urine pH (5.0-8.0) Ur Specific [place] (1.001-1.035) Urine Protein (Negative) Urine Glucose (UA) (Negative) Urine Ketones (Negative) Urine Blood (Negative) Urine Nitrite (Negative) Urine Bilirubin (Negative) Urine Urobilinogen (<2.0) mg/dL Ur Leukocyte Esterase (Negative) Acetone, Qual (Negative) Disposition <Brendon Jane - Last Filed: 05/18/17 14:23> Time of Disposition: 13:30 <Delmer Guidry - Last Filed: 05/18/17 14:25> Clinical Impression: Hyperglycemia, Nausea & vomiting, Abdominal pain Disposition: ADMITTED IP TO THIS [facility] Condition: Stable Referrals: Shane Burnham MD [Primary Care Provider] - 1-2 days
[2017-05-18 11:40] LABS: Appearance,Urine Clear (Clear); Bilirubin,Urine Negative (Negative); Glucose,Urine (UA) 4+ (Negative); Ketones,Urine 1+ (Negative); Leukocyte Esterase,Urine Negative (Negative); Nitrite,Urine Negative (Negative); Protein,Urine Negative (Negative); Specific Gravity,Urine 1.024 (1.001-1.035); UA Billing (MACRO vs. MICRO) CHEM; Urobilinogen,Urine <2.0 mg/dL (<2.0)
[2017-05-18 11:40] LABS: Basophils # (A) 0.1 k/uL (0-0.2); Basophils % (A) 1 %; CHCM 30.3; Eosinophils # (A) 0.1 k/uL (0-0.7); Eosinophils % (A) 0 %; HCT 49.5 % (34.0-46.0); HDW 2.72; Hypochromasia Marked; Luc % (Auto) 1; Lymphocytes % (A) 12 %; MCH 26.1 pg (25.0-35.0); MCHC 30.4 g/dL (31.0-37.0); MCV 86.1 fL (80.0-100.0); Mean Platelet Volume 9.8; Monocytes # (A) 0.4 k/uL (0-1.0); Monocytes % (A) 3 %; Neutrophils # (A) 13.7 k/uL (1.3-7.7); Neutrophils % (A) 84 %; RBC 5.75 m/uL (3.80-5.40); RDW 14.5 % (11.5-15.5); WBC 16.3 k/uL (3.8-10.6); WBC (Perox) 16.52
[2017-05-18 11:49] LABS: ALT 20 U/L (9-52); AST 23 U/L (14-36); Alkaline Phosphatase 247 U/L (38-126); Amylase <30 U/L (30-110); Anion Gap 21 mmol/L; Blood Urea Nitrogen 12 mg/dL (7-17); Carbon Dioxide 18 mmol/L (22-30); Chloride 92 mmol/L (98-107); Non-African American GFR(MDRD) >60 (>60 ml/min/1.73 sqM); Potassium 5.2 mmol/L (3.5-5.1); Sodium 131 mmol/L (137-145); Total Bilirubin 0.8 mg/dL (0.2-1.3); Total Protein 7.4 g/dL (6.3-8.2)
[2017-05-18 12:01] LABS: Glucose 882 mg/dL (74-99)
--- NOTE | 2017-05-18 13:09 | CT ---
EXAMINATION TYPE: CT abdomen pelvis wo con DATE OF EXAM: 05/18/2017 COMPARISON: 02/14/2017 HISTORY: Vomitting for [address] DLP: 1232.70 mGycm Automated exposure control for dose reduction was used. TECHNIQUE: Helical acquisition of images was performed from the lung bases through the pelvis. FINDINGS: Lung bases are clear of consolidation. There is metal artifact from surgery the lower thoracic spine. There is no pleural effusion. There are clips from cholecystectomy. Spleen appears normal. There is no pancreatic mass. There is a 4 cm area of heterogeneous density in the inferior anterior right lobe of the liver. Bile ducts are n ot dilated. There is no adrenal mass. Kidneys show no hydronephrosis. There is no retroperitoneal adenopathy. Abd ominal aorta is atheromatous. Bladder distends smoothly. I see no pelvic mass. There is a small 2 cm hernia in the lower anterior abdomen on the right side of midline that contains omental fat. I see no intestinal wall thickening. There are no dilated loops. Abdominal aorta is atheromatous. There is mu ltilevel spondylosis in the lumbar spine. There is some mild lobulation of the right lobe of the live r. Exam is limited by lack of contrast. IMPRESSION: THERE IS HETEROGENEOUS LOBULATED INFERIOR RIGHT LOBE OF THE LIVER THAT IS ALSO PRESENT ON THE OLD CT SCAN OF 02/15/2017. THIS IS MORE NOTICEABLE IN THE ANTERIOR INFERIOR RIGHT LOBE AND COULD RELATE TO REC URRENT TUMOR. THE INFERIOR RIGHT KIDNEY SHOWS SOMEWHAT LOBULATED APPEARANCE AND WAS HETEROGENEOUS ON THE CONTRAST CT SCAN OF 02/15/2017. RIGHT KIDNEY IS NOT CHANGED IN SIZE COMPARED TO LAST EXAM. THERE IS A SMALL SUPRAPUBIC VENTRAL HERNIA ON THE RIGHT SIDE THAT CONTAINS FAT AND IS UNCHANGED.
[2017-05-18] MEDS: INSULIN REGULAR 100 UNIT in SODIUM CHLORIDE 0.9% 100 ML IV SCH ×2 (13:21→20:54)
[2017-05-18 13:25] LABS: Glucose,Whole Blood >600 mg/dL (75-99)
[2017-05-18] MEDS ORDERED: ONDANSETRON 4 MG/2 ML VIAL IVP PRN (14:23)
[2017-05-18] MEDS ORDERED: ACETAMINOPHEN TAB 325 MG TAB PO PRN (14:23)
[2017-05-18] MEDS ORDERED: NALOXONE 0.4 MG/ML 1 ML VIAL IV PRN (14:23)
[2017-05-18 14:29] LABS: Glucose,Whole Blood 588 mg/dL (75-99)
[2017-05-18] MEDS: SODIUM CHLORIDE 0.9% 1,000 ML IV SCH ×2 (14:56→18:16)
[2017-05-18 15:31] LABS: Glucose,Whole Blood 430 mg/dL (75-99)
[2017-05-18 16:25] VITALS: BMI 47.8
[2017-05-18 16:40] LABS: Glucose,Whole Blood 335 mg/dL (75-99)
[2017-05-18] MEDS ORDERED: NYSTATIN 100,000 UNIT/GM POWD 15 GM TOPICAL PRN (16:53)
[2017-05-18] MEDS ORDERED: hydrOXYzine PAMOATE 25 MG CAP PO PRN (16:53)
[2017-05-18] MEDS ORDERED: LORazepam 1 MG TAB PO PRN (16:53)
[2017-05-18] MEDS ORDERED: valACYclovir HCL 1,000 MG TABLET PO PRN (16:53)
[2017-05-18 17:29] LABS: Glucose,Whole Blood 302 mg/dL (75-99)
[2017-05-18] MEDS: INSULIN LISPRO (humaLOG) 300 UNIT/3 ML VIAL SQ SCH (18:15)
[2017-05-18 18:23] LABS: Glucose,Whole Blood 226 mg/dL (75-99)
[2017-05-18 19:14] LABS: Glucose,Whole Blood 169 mg/dL (75-99)
[2017-05-18] MEDS: HYDROmorphone 1 MG/ML 1 ML SYRINGE IV PRN (20:28)
[2017-05-18] MEDS: OXYBUTYNIN 10 MG TAB.ER.24 PO SCH (20:34)
[2017-05-18] MEDS: METOPROLOL TARTRATE 50 MG TAB PO SCH (20:34)
[2017-05-18] MEDS: VENLAFAXINE HCL 75 MG TAB PO SCH (20:36)
[2017-05-18] MEDS: ATORVASTATIN 40 MG TAB PO SCH (20:36)
[2017-05-18] MEDS: GABAPENTIN 300 MG CAP PO SCH (20:36)
[2017-05-18 21:52] LABS: Glucose,Whole Blood 105 mg/dL (75-99)
[2017-05-19 02:59] LABS: Glucose,Whole Blood 156 mg/dL (75-99)
[2017-05-19 02:59] LABS: Glucose,Whole Blood 86 mg/dL (75-99)
[2017-05-19 03:02] LABS: Glucose,Whole Blood 184 mg/dL (75-99)
[2017-05-19 05:16] LABS: Glucose,Whole Blood 203 mg/dL (75-99)
[2017-05-19] MEDS: INSULIN REGULAR 100 UNIT in SODIUM CHLORIDE 0.9% 100 ML IV SCH (05:52)
[2017-05-19 07:16] LABS: Glucose,Whole Blood 143 mg/dL (75-99)
[2017-05-19] MEDS: INSULIN LISPRO (humaLOG) 300 UNIT/3 ML VIAL SQ SCH ×6 (08:04→21:22)
[2017-05-19] MEDS: METOPROLOL TARTRATE 50 MG TAB PO SCH ×2 (08:05→21:22)
[2017-05-19] MEDS: VENLAFAXINE HCL 75 MG TAB PO SCH ×2 (08:05→21:23)
[2017-05-19] MEDS: GABAPENTIN 300 MG CAP PO SCH ×2 (08:05→21:21)
[2017-05-19] MEDS: FUROSEMIDE 20 MG TAB PO SCH (08:06)
[2017-05-19] MEDS: PANTOPRAZOLE 40 MG TABLET PO SCH (08:06)
[2017-05-19] MEDS: amLODIPine 5 MG TAB PO SCH (08:06)
[2017-05-19] MEDS: BISACODYL 5 MG TABLET.DR PO SCH (08:12)
[2017-05-19] MEDS: HYDROmorphone 1 MG/ML 1 ML SYRINGE IV PRN (08:12)
[2017-05-19] MEDS: SODIUM CHLORIDE 0.9% 1,000 ML IV SCH ×3 (08:22→11:09)
[2017-05-19] MEDS ORDERED: POTASSIUM CHLORIDE ER 10 MEQ TAB.ER.PRT PO SCH (09:00)
[2017-05-19 09:04] LABS: Glucose,Whole Blood 146 mg/dL (75-99)
[2017-05-19 09:15] LABS: Basophils # (A) 0.1 k/uL (0-0.2); Basophils % (A) 1 %; CH 26.6; CHCM 32.4; Eosinophils # (A) 0.2 k/uL (0-0.7); Eosinophils % (A) 2 %; HCT 42.8 % (34.0-46.0); HDW 2.67; HGB 13.8 gm/dL (11.4-16.0); Luc # (Auto) 0.14; Luc % (Auto) 1; Lymphocytes % (A) 29 %; MCH 26.6 pg (25.0-35.0); MCHC 32.3 g/dL (31.0-37.0); MCV 82.5 fL (80.0-100.0); Mean Platelet Volume 8.9; Monocytes # (A) 0.5 k/uL (0-1.0); Monocytes % (A) 4 %; Neutrophils # (A) 8.8 k/uL (1.3-7.7); Neutrophils % (A) 64 %; RBC 5.19 m/uL (3.80-5.40); RDW 14.9 % (11.5-15.5); WBC 13.7 k/uL (3.8-10.6); WBC (Perox) 13.63
[2017-05-19 09:28] LABS: ALT 38 U/L (9-52); AST 53 U/L (14-36); Alkaline Phosphatase 223 U/L (38-126); Anion Gap 10 mmol/L; Blood Urea Nitrogen 11 mg/dL (7-17); Calcium 8.7 mg/dL (8.4-10.2); Carbon Dioxide 23 mmol/L (22-30); Chloride 105 mmol/L (98-107); Glucose 160 mg/dL (74-99); Non-African American GFR(MDRD) >60 (>60 ml/min/1.73 sqM); Potassium 4.1 mmol/L (3.5-5.1); Sodium 138 mmol/L (137-145); Total Bilirubin 0.7 mg/dL (0.2-1.3); Total Protein 6.4 g/dL (6.3-8.2)
[2017-05-19] MEDS: INSULIN GLARGINE 100 UNIT/ML 10 ML VIAL SQ SCH (11:17)
[2017-05-19] MEDS: oxyCODONE-APAP 10-325MG 1 EACH TAB PO PRN (11:17)
[2017-05-19] MEDS: CHOLECALCIFEROL 1,000 UNIT TAB PO SCH (11:18)
[2017-05-19] MEDS: CALCIUM CARBONATE 500 MG CHEWABLE PO SCH (11:18)
[2017-05-19 12:02] LABS: Glucose,Whole Blood 94 mg/dL (75-99)
[2017-05-19] MEDS: NYSTATIN 100,000 UNIT/GM POWD 15 GM TOPICAL SCH ×3 (12:42→21:24)
--- NOTE | 2017-05-19 13:14 | P.HPIM ---
History of Present Illness H&P Date: 05/18/17 Chief Complaint: Severe nonketotic hyperglycemia, intractable nausea vomiting, abdominal abdi 67-year-old female one of my office patient with multiple medical problem known to have history of CAD post PCI and stent placement of the LAD back in 2009 also known to have history of ischemic cardiopathy hypertension hyperlipidemia peripheral vascular disease chronic kidney disease obstructive sleep apnea previous history of stroke history of paroxysmal atheroblation septic knee and liver cancer who seen at [facility] regular basis she is known to have multiple CVA in the past at least 3 times. Patient apparently has not been feeling well in the lost 7-10 days apparently she quit using her insulin by herself developed to have intractable nausea and vomiting for the last 3 days become much worse in 05/18/2017 ended up coming to demurs department with increase abdominal pain intractable nausea vomiting and severe hyperglycemia. Patient blood sugar was over 870 fortunately her ketone was negative for the time. Patient was started on insulin drip with the current symptoms Will be admitted to the hospital with above problem. Review of Systems Constitutional: Reports anorexia, Reports chronic headaches, Reports chronic pain, Reports fatigue, Reports lethargy, Reports weakness, Reports weight gain, Denies as per HPI, Denies chills, Denies daytime sleepiness, Denies fever, Denies malaise, Denies night sweats, Denies poor appetite, Denies sweats, Denies weight loss Eyes: bilateral as per HPI Ears: bilateral: decreased hearing Ears, nose, mouth and throat: Reports ant. neck pain, Reports headache, Reports nasal congestion, Reports sinus pain, Reports sinus pressure, Reports swelling in throat, Reports sore throat, Denies as per HPI, Denies bleeding gums, Denies dental pain, Denies dysphagia, Denies epistaxis, Denies hoarseness, Denies mouth pain, Denies nasal discharge, Denies neck fullness/pressure, Denies neck lump, Denies nose pain, Denies odynophagia, Denies post-nasal drip, Denies swelling in mouth, Denies vertigo, Denies voice changes Breasts: bilateral: as per HPI Cardiovascular: Reports chest pain, Reports decreased exercise tolerance, Reports dyspnea on exertion, Reports high blood pressure, Reports irregular heart beat, Reports lightheadedness, Reports orthopnea, Reports paroxysmal nocturnal dyspnea, Reports rapid heart beat, Denies as per HPI, Denies claudication, Denies edema, Denies leg edema, Denies palpitations, Denies phlebitis, Denies shortness of breath, Denies syncope Respiratory: Reports congestion, Reports cough with sputum, Reports dyspnea, Reports excessive sputum, Reports pain, Reports pain on inspiration, Reports respiratory infections, Denies as per HPI, Denies cough, Denies hemoptysis, Denies home oxygen, Denies pleurisy, Denies sleep apnea, Denies snoring, Denies wheezing Gastrointestinal: Reports abdominal pain, Reports bloating, Reports constipation , Reports dyspepsia, Reports excessive gas, Reports heartburn, Reports indigestion, Reports nausea, Reports vomiting, Denies as per HPI, Denies belching, Denies BRBPR, Denies change in bowel habits, Denies coffee ground emesis, Denies diarrhea, Denies early satiety, Denies hematemesis, Denies hematochezia, Denies jaundice, Denies lactose intolerance, Denies loss of appetite, Denies melena Genitourinary: Reports nocturia, Reports stress incontinence, Reports urge incontinence, Denies as per HPI, Denies abnormal vaginal bleeding, Denies decreased libido, Denies difficulty conceiving, Denies difficulty voiding, Denies dysmenorrhea, Denies dyspareunia, Denies dysuria, Denies flank pain, Denies genital sores, Denies hematuria, Denies hot flashes, Denies incomplete emptying, Denies kidney stones, Denies menorrhagia, Denies mixed incontinence, Denies pelvic pain, Denies post void dribbling, Denies , Denies prolapse symptoms, Denies urgency, Denies urinary frequency, Denies vaginal discharge, Denies vaginal dryness, Denies vaginal itching, Denies vaginal odor Musculoskeletal: Reports arm numbness/tingling, Reports frequent falls, Reports gait dysfunction, Reports loss of height, Reports low back pain, Reports morning stiffness, Reports muscle cramps, Reports myalgias, Reports neck pain, Denies as per HPI, Denies atrophy, Denies fractures, Denies hot joints, Denies leg numbness/tingling, Denies limitation of motion, Denies muscle weakness, Denies neck stiffness, Denies prior amputations, Denies redness of joints, Denies shooting arm pain, Denies shooting leg pain Musculoskeletal: bilateral: ankle pain Integumentary: Reports pruritus, Reports rash, Denies as per HPI, Denies acne, Denies boils, Denies brittle nails, Denies change in hair/nails, Denies color changes, Denies darkening of skin, Denies depigmentation, Denies dryness, Denies foot/leg ulcers, Denies growths, Denies hirsutism, Denies lesions, Denies onychomycosis, Denies sores, Denies striae, Denies unusual bruising, Denies wounds Neurological: Reports ataxia, Reports burning pain, Reports change in mentation , Reports confusion, Reports gait dysfunction, Reports numbness, Reports paresthesias, Reports tingling, Reports tremors, Reports weakness, Denies as per HPI, Denies aphasia, Denies balance difficulties, Denies change in smell/ taste, Denies change in speech, Denies convulsions, Denies double vision, Denies head injury, Denies headaches, Denies hearing difficulties, Denies lack of coordination, Denies loss of vision, Denies memory loss, Denies migraines, Denies motor disturbance, Denies paralysis, Denies seizures, Denies sensory deficit, Denies spasticity, Denies syncope, Denies tic, Denies transient paralysis, Denies vertigo, Denies visual changes Psychiatric: Reports anhedonia, Reports anxiety, Reports anxiety attacks, Reports memory loss, Reports sadness/tearfulness, Denies as per HPI, Denies change in appetite, Denies change in libido, Denies change in sleep habits, Denies confusion, Denies depression, Denies difficulty concentrating, Denies disorientation, Denies hallucinations, Denies hopelessness, Denies hypersomnia, Denies insomnia, Denies irritability, Denies mood swings, Denies paranoia, Denies sleep disturbances, Denies suicidal ideation Endocrine: Reports cold intolerance, Reports excessive sweating, Reports excessive thirst, Reports fatigue, Reports flushing, Reports polyphagia, Reports polyuria, Reports proptosis, Denies as per HPI, Denies deepening of the voice, Denies heat intolerance, Denies high blood sugars, Denies increase in ring/shoe/hat size, Denies low blood sugars, Denies nocturia, Denies palpitations, Denies polydipsia, Denies recent glucocorticoid use, Denies thyroid mass, Denies weight change Hematologic/Lymphatic: Reports easy bruising, Denies as per HPI, Denies easy bleeding, Denies lymphadenopathy, Denies lymphedema, Denies thrombophilia Allergic/Immunologic: Reports allergic rhinitis, Denies as per HPI, Denies anaphylaxis, Denies angioedema, Denies gluten intolerance, Denies persistent infections, Denies seasonal allergies, Denies urticaria, Denies wheezing Past Medical History Past Medical History: Atrial Fibrillation, Cancer, CVA/TIA, Diabetes Mellitus, Hyperlipidemia, Sleep Apnea/CPAP/BIPAP Additional Past Medical History / Comment(s): Morbid obesity, coronary artery disease with previous angioplasty to LAD in 2009, hypertension, hepatocellular carcinoma, obstructive sleep apnea, diabetes mellitus, hyperlipidemia, CVA/TIA, chronic atrial fibrillation, hiatal hernia, spinal stenosis, degenerative disc disease involving L3 and L4, diabetic peripheral neuropathy, hyperactive bladder , history of septic left knee joint post arthroplasty History of Any Multi-Drug Resistant Organisms: MRSA Date of last positivie culture/infection: 2010 MDRO Source:: left knee Past Surgical History: Adenoidectomy, Bariatric Surgery, Cholecystectomy, Heart Catheterization With Stent, Hernia Repair, Hysterectomy, Orthopedic Surgery, Tonsillectomy Additional Past Surgical History / Comment(s): lap band placed in 2003, prolapsed, removed in 2005, neuro stimulator in back, one stent to LAD after stress test. Left knee arthroscopic surgery, right total knee arthroplasty, left total knee arthroplasty 10/01/2011, repair of quadriceps tendon 08/21/2011 , left knee patellar tendon repair 09/24/2011, removal of the hardware of the left total knee arthroplasty with implantation of the antibiotic spacer October 08 2011, total left knee hardware replacement in May 2012. EGD on March [address] Duane Crawford. No changes to surgical history per patient () , cholecystectomy, tonsillectomy, adenoidectomy, total abdominal hysterectomy and bilateral salpingo-oophorectomy, repair of a quadriceps tendon, trigger finger, left hand in 2003 with subsequent reversal in 2005. States she's had liver cancer that is now in remission. Doctor's with physicians from [place]. states she underwent no treatments for the cancer Past Anesthesia/Blood Transfusion Reactions: No Reported Reaction Date of Last Stent Placement:: 05/17/2010 Past Psychological History: Anxiety, Depression Additional Psychological History / Comment(s): Patient is living at home with daughter, son-in-law, grandchildren and great-grandchildren. There are multiple dogs and cats in home. Lives in a 4 bedroom home. States it is her home. Also states the arrangement is "perfect" for her. Smoking Status: Never smoker Past Alcohol Use History: None Reported Past Drug Use History: Opiates - Past Family History Mother Family Medical History: Congestive Heart Failure (CHF) Father Family Medical History: Myocardial Infarction (MT) Medications and Allergies Home Medications Medication Instructions Recorded Confirmed Type Gabapentin [Neurontin] 300 mg PO QAM 08/10/14 05/18/17 History LORazepam [Ativan] 1 mg PO Q6H PRN 08/10/14 05/18/17 History Pantoprazole Sodium 40 mg PO DAILY 08/10/14 05/18/17 History Penciclovir 1% Cream [Denavir 1 applic TOPICAL 5XD PRN 08/10/14 05/18/17 History Cream] Solifenacin Succinate [Vesicare] 10 mg PO HS 08/10/14 05/18/17 History Calcium Carbonate [Calcium] 600 mg PO DAILY 06/26/15 05/18/17 History fentaNYL 75MCG/HR PATCH [Duragesic 1 patch TRANSDERM Q72H 06/26/15 05/18/17 History 75MCG/HR] Ondansetron [Zofran] 4 mg PO Q8H PRN 03/26/16 05/18/17 History Gabapentin [Neurontin] 600 mg PO HS 04/02/16 05/18/17 History Nystatin [Nystop] 1 applic TOPICAL DAILY PRN 02/14/17 05/18/17 History Bisacodyl [Dulcolax] 5 mg PO DAILY 05/18/17 05/18/17 History Cholecalciferol [Vitamin D3] 1,000 unit PO DAILY 05/18/17 05/18/17 History Furosemide [Lasix] 20 mg PO DAILY 05/18/17 05/18/17 History Insulin Aspart [NovoLOG Flexpen] See Protocol SQ AC-TID 05/18/17 05/18/17 History Insulin Glargine,Hum.rec.anlog 30 unit SQ QAM 05/18/17 05/18/17 History [Lantus Solostar] Insulin Glargine,Hum.rec.anlog 70 unit SQ HS 05/18/17 05/18/17 History [Lantus Solostar] Venlafaxine HCl [Effexor] 75 mg PO QAM 05/18/17 05/18/17 History Venlafaxine HCl [Effexor] 150 mg PO HS 05/18/17 05/18/17 History hydrOXYzine PAMOATE 25 mg PO HS PRN 05/18/17 05/18/17 History oxyCODONE-APAP 10-325MG [Percocet 1 tab PO BID PRN 05/18/17 05/18/17 History 10-325 mg] Allergies Allergy/AdvReac Type Severity Reaction Status Date / Time metformin HCl Allergy Unknown Verified 05/18/17 11:22 [From Glucophage] Physical Exam Vitals: Vital Signs Temp Pulse Pulse Resp BP BP Pulse Ox 05/19/17 07:00 97.6 F 57 L 18 119/70 94 L 05/18/17 22:29 97.7 F 81 19 121/78 93 L 05/18/17 15:41 98.2 F 97 18 179/76 93 L 05/18/17 14:56 96.9 F L 90 18 160/81 93 L 05/18/17 13:28 98 F 99 18 171/81 95 Intake and Output 05/18/17 05/19/17 05/19/17 22:59 06:59 14:59 Intake Total 291.358 0 658 Balance 291.358 0 658 Intake: Intake, IV Titration 91.358 0 Amount Insulin Regular 100 unit 91.358 0 In Sodium Chloride 0.9% 100 ml @ 0.1 UNITS/KG/HR 12.36 mls/hr IV .[facility] Rx#:[id number] Oral 200 658 Other: # Voids 0 1 Weight 122.47 kg 122.47 kg Patient Weight 05/20/17 06:59 Weight 122.47 kg - Constitutional General appearance: no average body habitus, cooperative, disheveled, no mild distress, morbidly obese, no acute distress, no obese, no severe distress, no thin - EENT Eyes: abnormal pupil, no anicteric sclerae, no disc margins sharp, no edentulous , no EOMI, no PERRLA, no fundus normal, no photophobia, no dentition normal, no poor dentition, no ptosis, no scleral icterus, normal appearance ENT: hard of hearing, no hearing grossly normal, no NA/AT, normal oropharynx, no other, no pharyngeal erythema, no thrush, no tonsillar exudates, no tonsillar swelling Ears: bilateral: normal, bulging - Neck Neck: no lymphadenopathy, normal ROM, no other, no rigidity, no stridor, no thyromegaly Carotids: bilateral: upstroke normal Thyroid: bilateral: normal size - Respiratory Respiratory: bilateral: CTA, diminished, dullness - Cardiovascular Rhythm: irregularly irregular Heart sounds: normal: S1, S2 Abnormal Heart Sounds: systolic murmur, S3 Gallop - Gastrointestinal General gastrointestinal: no absent bowel sounds, decreased bowel sounds, distended, hepatomegaly, no hyperactive bowel sounds, normal bowel sounds, no organomegaly, no rigid, no scaphoid, soft, no splenomegaly, tenderness, no umbilical hernia, no ventral hernia - Integumentary Integumentary: no calor, cellulitis, cyanotic, no decreased turgor, no flushed, no jaundiced, normal, no normal turgor, pale, rash, no ulcer - Neurologic Neurologic: CNII-XII intact - Musculoskeletal Musculoskeletal: gait normal, generalized weakness, strength equal bilaterally, no right sided weakness, no left sided weakness - Psychiatric Psychiatric: A&O x's 3, appropriate affect Results CBC & Chem 7: 05/19/17 08:34 05/19/17 08:34 Labs: Abnormal Lab Results - Last 24 Hours (Table) 05/18/17 05/18/17 05/18/17 Range/Units 13:23 14:18 15:30 WBC (3.8-10.6) k/uL Neutrophils # (1.3-7.7) k/uL Glucose (74-99) mg/dL POC Glucose (mg/dL) >600 H 588 H 430 H (75-99) mg/dL AST (14-36) U/L Alkaline Phosphatase (38-126) U/L Albumin (3.5-5.0) g/dL 05/18/17 05/18/17 05/18/17 Range/Units 16:37 17:25 18:21 WBC (3.8-10.6) k/uL Neutrophils # (1.3-7.7) k/uL Glucose (74-99) mg/dL POC Glucose (mg/dL) 335 H 302 H 226 H (75-99) mg/dL AST (14-36) U/L Alkaline Phosphatase (38-126) U/L Albumin (3.5-5.0) g/dL 05/18/17 05/18/17 05/19/17 Range/Units 19:02 21:21 01:06 WBC (3.8-10.6) k/uL Neutrophils # (1.3-7.7) k/uL Glucose (74-99) mg/dL POC Glucose (mg/dL) 169 H 105 H 156 H (75-99) mg/dL AST (14-36) U/L Alkaline Phosphatase (38-126) U/L Albumin (3.5-5.0) g/dL 05/19/17 05/19/17 05/19/17 Range/Units 02:49 05:05 07:01 WBC (3.8-10.6) k/uL Neutrophils # (1.3-7.7) k/uL Glucose (74-99) mg/dL POC Glucose (mg/dL) 184 H 203 H 143 H (75-99) mg/dL AST (14-36) U/L Alkaline Phosphatase (38-126) U/L Albumin (3.5-5.0) g/dL 05/19/17 05/19/17 05/19/17 Range/Units 08:34 08:34 09:00 WBC 13.7 H (3.8-10.6) k/uL Neutrophils # 8.8 H (1.3-7.7) k/uL Glucose 160 H (74-99) mg/dL POC Glucose (mg/dL) 146 H (75-99) mg/dL AST 53 H (14-36) U/L Alkaline Phosphatase 223 H (38-126) U/L Albumin 3.1 L (3.5-5.0) g/dL Thrombosis Risk Factor Assmnt - DVT/VTE Prophylaxis DVT/VTE Prophylaxis: Pharmacologic Prophylaxis ordered, Mechanical Prophylaxis ordered - Choose All That Apply Any of the Below Risk Factors Present?: Yes Each Factor Represents 1 point: Obesity (BMI >25) Other Risk Factors: Yes Each Risk Factor Represents 2 Points: Age 61-74 years Other congenital or acquired thrombophilia - If yes, enter type in comment: No Thrombosis Risk Factor Assessment Total Risk Factor Score: 3 Thrombosis Risk Factor Assessment Level: Moderate Risk Assessment and Plan Plan: 1 severe nonketotic hyperglycemia: With the blood sugar been 800 patient be treated as a DKA will use at DKA protocol for now continue insulin drip ~blood sugar is below 200 patient will be switched to her long-acting Lantus and will add NovoLog before meals meals along with sliding scales. Continue hydration continue supportive care. Her nonketotic hyperglycemia most likely the cause of her nausea and vomiting his is no other source currently. 2 intractable nausea and vomiting: Most likely from PRE DKA and severe nonketotic hyperglycemia treat underlying disease and continue to watch for any further symptoms. 3 abdominal pain: Due to liver cancer known in been treated for long time patient has been on chronic pain management. 4 chronic pain syndrome: Patient has been on hydrocodone along with fentanyl. 5 nonsustained A. fib: Patient remain on Lopressor 50 mg twice a day pulse rates under control currently. 6 hypertension: Remain well controlled on amlodipine and metoprolol. 7 liver cancer patient seen hematology oncology at [facility] a regular basis. She had what looks like a new finding of spot or mass in the kidney patient is following urology and oncology for that as well. 8 history of CAD and ischemic cardiomyopathy: Patient is still on medical management currently. 9 chronic history of depression: Remain on Effexor or 75 g in the morning and one 50 mg at night. 10 hyperlipidemia: Remain on Lipitor 40 mg a day. 11 chronic neuropathy: It's more helpful using gabapentin total of 900 mg side her pain management. 12 GI prophylaxis: Patient will be on pantoprazole daily. 13 DVT prophylaxis: Patient will be on heparin subcutaneous. CODE STATUS: Full code. Expectation from this admission: Patient be in the hospital for more than 2 nights.
[2017-05-19 14:33] LABS: Hemoglobin A1C 12.4 % (4.2-6.1)
[2017-05-19 16:49] LABS: Glucose,Whole Blood 142 mg/dL (75-99)
[2017-05-19] MEDS ORDERED: INSULIN GLARGINE 100 UNIT/ML 10 ML VIAL SQ SCH (21:00)
[2017-05-19 21:05] LABS: Glucose,Whole Blood 163 mg/dL (75-99)
[2017-05-19] MEDS: ATORVASTATIN 40 MG TAB PO SCH (21:20)
[2017-05-19] MEDS: OXYBUTYNIN 10 MG TAB.ER.24 PO SCH (21:22)
[2017-05-20 02:31] LABS: Glucose,Whole Blood 209 mg/dL (75-99)
[2017-05-20] MEDS: oxyCODONE-APAP 10-325MG 1 EACH TAB PO PRN (04:20)
[2017-05-20 07:17] LABS: Glucose,Whole Blood 196 mg/dL (75-99)
[2017-05-20 07:29] VITALS: BP 134/67; PULSE 57; RESP 18; TEMP 97
[2017-05-20] MEDS: GABAPENTIN 300 MG CAP PO SCH (07:55)
[2017-05-20] MEDS: METOPROLOL TARTRATE 50 MG TAB PO SCH (07:55)
[2017-05-20] MEDS: VENLAFAXINE HCL 75 MG TAB PO SCH (07:56)
[2017-05-20] MEDS: FUROSEMIDE 20 MG TAB PO SCH (07:56)
[2017-05-20] MEDS: amLODIPine 5 MG TAB PO SCH (07:56)
[2017-05-20] MEDS: PANTOPRAZOLE 40 MG TABLET PO SCH (07:56)
[2017-05-20] MEDS: INSULIN LISPRO (humaLOG) 300 UNIT/3 ML VIAL SQ SCH ×4 (07:57→13:18)
[2017-05-20] MEDS: NYSTATIN 100,000 UNIT/GM POWD 15 GM TOPICAL SCH (07:58)
[2017-05-20] MEDS ORDERED: ONDANSETRON 4 MG TAB PO PRN (08:02)
[2017-05-20] MEDS: BISACODYL 5 MG TABLET.DR PO SCH (08:08)
[2017-05-20] MEDS: INSULIN GLARGINE 100 UNIT/ML 10 ML VIAL SQ SCH (08:09)
--- NOTE | 2017-05-20 12:18 | P.DS ---
Providers Date of admission: 05/18/17 14:24 Expected date of discharge: 05/20/17 Attending physician: Shane Burnham Primary care physician: [facility] Course: 67-year-old female one of my office patient with multiple medical problem known to have history of CAD post PCI and stent placement of the LAD back in 2009 also known to have history of ischemic cardiopathy hypertension hyperlipidemia peripheral vascular disease chronic kidney disease obstructive sleep apnea previous history of stroke history of paroxysmal atheroblation septic knee and liver cancer who seen at [facility] regular basis she is known to have multiple CVA in the past at least 3 times. Patient apparently has not been feeling well in the lost 7-10 days apparently she quit using her insulin by herself developed to have intractable nausea and vomiting for the last 3 days become much worse in 05/18/2017 ended up coming to demurs department with increase abdominal pain intractable nausea vomiting and severe hyperglycemia. Patient blood sugar was over 870 fortunately her ketone was negative for the time. Patient was started on insulin drip with the current symptoms Will be admitted to the hospital with above problem. 05/20: Patient's blood sugars are now running 94-209. We'll plan for home to increase her NovoLog to 10 units with each meal and the scale will be provided. Patient does complain of her chronic abdominal pain and recommended that she follow-up with her stable cleaner at [facility]. Patient will be discharged home today in stable condition. Discharge diagnoses: 1 severe nonketotic hyperglycemia 2 intractable nausea and vomiting: Most likely from PRE DKA and severe nonketotic hyperglycemia 3 abdominal pain: Due to liver cancer 4 chronic pain syndrome 5 nonsustained A. fib 6 hypertension 7 liver cancer patient seen hematology oncology at [facility] 8 history of CAD and ischemic cardiomyopathy 9 chronic history of depression recurrent 10 hyperlipidemia 11 chronic diabetic neuropathy Discharge plan: Return home Impression and plan of care have been directed as dictated by the signing physician. Clare Mak nurse practitioner acting as scribe for signing physician. Patient Condition at Discharge: Good Plan - Discharge Summary New Discharge Prescriptions: New Insulin Aspart [NovoLOG Flexpen] 10 units SQ TID #5 pen Continue Atorvastatin [Lipitor] 40 mg PO HS #30 tablet Potassium Chloride ER [K-Dur 10] 10 meq PO DAILY #30 tab.er.prt amLODIPine [Norvasc] 5 mg PO DAILY #30 tab Solifenacin Succinate [Vesicare] 10 mg PO HS Gabapentin [Neurontin] 300 mg PO QAM Penciclovir 1% Cream [Denavir Cream] 1 applic TOPICAL 5XD PRN PRN Reason: Cold Sores Pantoprazole Sodium 40 mg PO DAILY LORazepam [Ativan] 1 mg PO Q6H PRN PRN Reason: Anxiety Calcium Carbonate [Calcium] 600 mg PO DAILY fentaNYL 75MCG/HR PATCH [Duragesic 75MCG/HR] 1 patch TRANSDERM Q72H Ondansetron [Zofran] 4 mg PO Q8H PRN PRN Reason: Nausea Gabapentin [Neurontin] 600 mg PO HS Nystatin [Nystop] 1 applic TOPICAL DAILY PRN PRN Reason: Skin Irritation Metoprolol Tartrate [Lopressor] 50 mg PO BID #60 tab Bisacodyl [Dulcolax] 5 mg PO DAILY Cholecalciferol [Vitamin D3] 1,000 unit PO DAILY Insulin Glargine,Hum.rec.anlog [Lantus Solostar] 70 unit SQ HS Insulin Glargine,Hum.rec.anlog [Lantus Solostar] 30 unit SQ QAM Venlafaxine HCl [Effexor] 150 mg PO HS Venlafaxine HCl [Effexor] 75 mg PO QAM hydrOXYzine PAMOATE 25 mg PO HS PRN PRN Reason: Itching Furosemide [Lasix] 20 mg PO DAILY oxyCODONE-APAP 10-325MG [Percocet 10-325 mg] 1 tab PO BID PRN PRN Reason: Breakthrough Pain Discharge Medication List Atorvastatin [Lipitor] 40 mg PO HS #30 tablet 04/06/14 [Rx] Potassium Chloride ER [K-Dur 10] 10 meq PO DAILY #30 tab.er.prt 04/06/14 [Rx] amLODIPine [Norvasc] 5 mg PO DAILY #30 tab 04/06/14 [Rx] Gabapentin [Neurontin] 300 mg PO QAM 08/10/14 [History] LORazepam [Ativan] 1 mg PO Q6H PRN 08/10/14 [History] Pantoprazole Sodium 40 mg PO DAILY 08/10/14 [History] Penciclovir 1% Cream [Denavir Cream] 1 applic TOPICAL 5XD PRN 08/10/14 [History] Solifenacin Succinate [Vesicare] 10 mg PO HS 08/10/14 [History] Calcium Carbonate [Calcium] 600 mg PO DAILY 06/26/15 [History] fentaNYL 75MCG/HR PATCH [Duragesic 75MCG/HR] 1 patch TRANSDERM Q72H 06/26/15 [ History] Ondansetron [Zofran] 4 mg PO Q8H PRN 03/26/16 [History] Gabapentin [Neurontin] 600 mg PO HS 04/02/16 [History] Nystatin [Nystop] 1 applic TOPICAL DAILY PRN 02/14/17 [History] Metoprolol Tartrate [Lopressor] 50 mg PO BID #60 tab 02/17/17 [Rx] Bisacodyl [Dulcolax] 5 mg PO DAILY 05/18/17 [History] Cholecalciferol [Vitamin D3] 1,000 unit PO DAILY 05/18/17 [History] Furosemide [Lasix] 20 mg PO DAILY 05/18/17 [History] Insulin Glargine,Hum.rec.anlog [Lantus Solostar] 30 unit SQ QAM 05/18/17 [ History] Insulin Glargine,Hum.rec.anlog [Lantus Solostar] 70 unit SQ HS 05/18/17 [History ] Venlafaxine HCl [Effexor] 75 mg PO QAM 05/18/17 [History] Venlafaxine HCl [Effexor] 150 mg PO HS 05/18/17 [History] hydrOXYzine PAMOATE 25 mg PO HS PRN 05/18/17 [History] oxyCODONE-APAP 10-325MG [Percocet 10-325 mg] 1 tab PO BID PRN 05/18/17 [History] Insulin Aspart [NovoLOG Flexpen] 10 units SQ TID #5 pen 05/20/17 [Rx] Follow up Appointment(s)/Referral(s): Shane Burnham MD [Primary Care Provider] - 05/27/17 10:00 am (With SUSHILA Manning) Patient Instructions/Handouts: Diabetic Hyperglycemia (DC) Activity/Diet/Wound Care/Special Instructions: Cardiac, diabetic diet. Humalog scale: 250-300 take 5 units 300-350 take 7 units 351-400 take 9 units >400, call physician Discharge Disposition: HOME SELF-CARE
[2017-05-20] MEDS: CALCIUM CARBONATE 500 MG CHEWABLE PO SCH (12:24)
[2017-05-20] MEDS: CHOLECALCIFEROL 1,000 UNIT TAB PO SCH (12:24)
[2017-05-20 12:37] LABS: Glucose,Whole Blood 161 mg/dL (75-99)
== END 2017-05-20 14:26 | disposition home or self-care (01) | DRG 638 ==
LOC: EC 10:37 → 4MS4W 14:24
PROVIDERS: ADMIT Internal Medicine Geriatric Medicine; ATTEND Internal Medicine Geriatric Medicine
DX: E11.65 Type 2 diabetes mellitus with hyperglycemia (principal); F33.9 Major depressive disorder, recurrent, unspecified; I48.2 Chronic atrial fibrillation; E11.22 Type 2 diabetes mellitus with diabetic chronic kidney disease; E11.42 Type 2 diabetes mellitus with diabetic polyneuropathy; E78.5 Hyperlipidemia, unspecified; E11.51 Type 2 diabetes mellitus with diabetic peripheral angiopathy without gangrene; F41.9 Anxiety disorder, unspecified; G47.33 Obstructive sleep apnea (adult) (pediatric); G89.3 Neoplasm related pain (acute) (chronic); G89.4 Chronic pain syndrome; I12.9 Hypertensive chronic kidney disease with stage 1 through stage 4 chronic kidney disease, or unspecified chronic kidney disease; I25.10 Atherosclerotic heart disease of native coronary artery without angina pectoris; I25.5 Ischemic cardiomyopathy; K43.9 Ventral hernia without obstruction or gangrene; N18.9 Chronic kidney disease, unspecified; N28.89 Other specified disorders of kidney and ureter; N32.81 Overactive bladder; E66.01 Morbid (severe) obesity due to excess calories; M51.36 Other intervertebral disc degeneration, lumbar region; M48.00 Spinal stenosis, site unspecified; K44.9 Diaphragmatic hernia without obstruction or gangrene; Z79.899 Other long term (current) drug therapy; Z79.4 Long term (current) use of insulin; Z88.8 Allergy status to other drugs, medicaments and biological substances; Z95.5 Presence of coronary angioplasty implant and graft; Z96.652 Presence of left artificial knee joint; Z85.05 Personal history of malignant neoplasm of liver; Z82.49 Family history of ischemic heart disease and other diseases of the circulatory system
CPT/HCPCS: 36415; 74176; 80053; 81003; 82009; 82150; 83036; 83690; 85025

== ENCOUNTER → 2018-01-08 | Outpatient (CLI) | payer MEDICARE, OTHER ==
--- NOTE | 2018-01-08 14:40 | CT ---
EXAMINATION TYPE: CT lumbar spine wo con DATE OF EXAM: 01/08/2018 COMPARISON: NONE HISTORY: Lumbago CT DLP: 1875.[address] of the lumbar spine was performed. Bone and soft tissue window settings are submitted as well as coronal and sagittal reconstructions. L1-L2: Moderate to severe degenerative disc space narrowing. Ventral and dorsal spondylosis. Mild dis c bulge. No herniation protrusion or central stenosis. L2-L3: Severe disc desiccation with vacuum disc. Ventral and dorsal spondylosis. Disc bulging with en capsulating spur resulting in disc endplate complex. Mild effacement ventral thecal sac. Mild bilater al foraminal encroachment. No central stenosis. L3-L4: Severe degenerative disc disease with vacuum disc. Circumferential disc bulge greatest posteri rubén with encapsulating spur. Effacement ventral thecal sac with [id number] central stenosis ventura spected. Right foraminal encroachment noted. L4-L5: Vacuum disc with degenerative endplate sclerosis. Hypertrophy of the ligamentum flavum and fac et joint arthropathy resulting in at least moderate central stenosis and bilateral foraminal encroach ment. No disc herniation appreciated. L5-S1: Severe degenerative disc space narrowing and vacuum disc. Posterior disc bulge with encapsulat ing spur resulting in disc endplate complex. Bilateral lateral recess stenosis and foraminal encroac hment noted. No paraspinal masses are identified. Lumbar segments are free if fracture. Partial lumbarization of S1. Heterogenous attenuation within the liver is nonspecific. Correlate with dedicated liver evaluati on and/or ultrasound. IMPRESSION: 1. Multilevel degenerative disc disease. 2. Central stenosis greatest at L4-5. Foraminal encroachment as outlined above.
== END | disposition home or self-care (01) ==
LOC: RADCTMAIN 14:07
PROVIDERS: ATTEND Psychiatry & Neurology Neurology
DX: M48.061 Spinal stenosis, lumbar region without neurogenic claudication (principal); M51.36 Other intervertebral disc degeneration, lumbar region; Z91.048 Other nonmedicinal substance allergy status; Z88.8 Allergy status to other drugs, medicaments and biological substances
CPT/HCPCS: 72131

== ENCOUNTER 2018-04-08 19:05 | Observation (INO) | payer MEDICARE, OTHER ==
[2018-04-08 19:41] VITALS: RESP 16
[2018-04-08] MEDS ORDERED: SODIUM CHLORIDE 0.9% 1,000 ML IV STA ×2 (20:22)
--- NOTE | 2018-04-08 20:26 | ED ---
Fall HPI - General Chief Complaint: Fall Stated Complaint: slurred speech/confusion/fall with wrist pain Time Seen by Provider: 04/08/18 19:50 Source: patient, family Mode of arrival: wheelchair - History of Present Illness Initial Comments: This is a 68-year-old female who presents with complaints of left wrist pain and left hand pain. She's had about 5 falls in the last week and a half. She did decrease oral intake her daughter believes she may have had a stroke proximal to 7 days ago she had surgery speech is feeling improved. She is very weak. No reports of fevers chills nausea vomiting sweats. In addition of this patient blood sugars have been running markedly elevated per her daughter. MD Complaint: fall, other - Related Data Home Medications Medication Instructions Recorded Confirmed Gabapentin [Neurontin] 600 mg PO QAM 08/10/14 04/08/18 LORazepam [Ativan] 1 mg PO Q6H PRN 08/10/14 04/08/18 Pantoprazole Sodium 40 mg PO DAILY 08/10/14 04/08/18 Penciclovir 1% Cream [Denavir 1 applic TOPICAL 5XD PRN 08/10/14 04/08/18 Cream] Solifenacin Succinate [Vesicare] 10 mg PO HS 08/10/14 04/08/18 Calcium Carbonate [Calcium] 600 mg PO DAILY 06/26/15 04/08/18 fentaNYL 75MCG/HR PATCH [Duragesic 1 patch TRANSDERM Q72H 06/26/15 04/08/18 75MCG/HR] Ondansetron [Zofran] 4 mg PO Q8H PRN 03/26/16 04/08/18 Gabapentin [Neurontin] 900 mg PO HS 04/02/16 04/08/18 Nystatin [Nystop] 1 applic TOPICAL DAILY PRN 02/14/17 04/08/18 Bisacodyl [Dulcolax] 5 mg PO DAILY 05/18/17 04/08/18 Insulin Glargine,Hum.rec.anlog 30 unit SQ QAM 05/18/17 04/08/18 [Lantus Solostar] Insulin Glargine,Hum.rec.anlog 70 unit SQ HS 05/18/17 04/08/18 [Lantus Solostar] Venlafaxine HCl [Effexor] 75 mg PO QAM 05/18/17 04/08/18 Venlafaxine HCl [Effexor] 150 mg PO HS 05/18/17 04/08/18 hydrOXYzine PAMOATE 25 mg PO HS PRN 05/18/17 04/08/18 oxyCODONE-APAP 10-325MG [Percocet 1 tab PO BID PRN 05/18/17 04/08/18 10-325 mg] Insulin Aspart [NovoLOG Flexpen] 18 units SQ TID 04/08/18 04/08/18 Previous Rx's Medication Instructions Recorded Atorvastatin [Lipitor] 40 mg PO HS #30 tablet 04/06/14 amLODIPine [Norvasc] 5 mg PO DAILY #30 tab 04/06/14 Metoprolol Tartrate [Lopressor] 50 mg PO BID #60 tab 02/17/17 Allergies Allergy/AdvReac Type Severity Reaction Status Date / Time metformin HCl Allergy Unknown Verified 04/08/18 20:09 [From Glucophage] Review of Systems ROS Statement: Those systems with pertinent positive or pertinent negative responses have been documented in the HPI. ROS Other: All systems not noted in ROS Statement are negative. Past Medical History Past Medical History: Atrial Fibrillation, Cancer, CVA/TIA, Diabetes Mellitus, Hyperlipidemia, Sleep Apnea/CPAP/BIPAP Additional Past Medical History / Comment(s): Morbid obesity, coronary artery disease with previous angioplasty to LAD in 2009, hypertension, hepatocellular carcinoma, obstructive sleep apnea, diabetes mellitus, hyperlipidemia, CVA/TIA, chronic atrial fibrillation, hiatal hernia, spinal stenosis, degenerative disc disease involving L3 and L4, diabetic peripheral neuropathy, hyperactive bladder , history of septic left knee joint post arthroplasty History of Any Multi-Drug Resistant Organisms: MRSA Date of last positivie culture/infection: 2010 MDRO Source:: left knee Past Surgical History: Adenoidectomy, Bariatric Surgery, Cholecystectomy, Heart Catheterization With Stent, Hernia Repair, Hysterectomy, Orthopedic Surgery, Tonsillectomy Additional Past Surgical History / Comment(s): lap band placed in 2003, prolapsed, removed in 2005, neuro stimulator in back, one stent to LAD after stress test. Left knee arthroscopic surgery, right total knee arthroplasty, left total knee arthroplasty 10/01/2011, repair of quadriceps tendon 08/21/2011 , left knee patellar tendon repair 09/24/2011, removal of the hardware of the left total knee arthroplasty with implantation of the antibiotic spacer October 08 2011, total left knee hardware replacement in May 2012. EGD on March [address] Duane Crawford. No changes to surgical history per patient () , cholecystectomy, tonsillectomy, adenoidectomy, total abdominal hysterectomy and bilateral salpingo-oophorectomy, repair of a quadriceps tendon, trigger finger, left hand in 2003 with subsequent reversal in 2005. States she's had liver cancer that is now in remission. Doctor's with physicians from [place]. states she underwent no treatments for the cancer Past Anesthesia/Blood Transfusion Reactions: No Reported Reaction Date of Last Stent Placement:: 05/17/2010 Past Psychological History: Anxiety, Depression Smoking Status: Never smoker Past Alcohol Use History: None Reported Past Drug Use History: Opiates - Past Family History Mother Family Medical History: Congestive Heart Failure (CHF) Father Family Medical History: Myocardial Infarction ([place]) General Exam - General Exam Comments Initial Comments: This is a well-developed well-nourished awake alert oriented 3 female Limitations: no limitations General appearance: alert, in no apparent distress Head exam: Present: atraumatic, normocephalic, normal inspection Eye exam: Present: normal appearance, PERRL, EOMI. Absent: scleral icterus, conjunctival injection, periorbital swelling ENT exam: Present: mucous membranes dry Neck exam: Present: normal inspection. Absent: tenderness, meningismus, lymphadenopathy Respiratory exam: Present: normal lung sounds bilaterally. Absent: respiratory distress, wheezes, rales, rhonchi, stridor Cardiovascular Exam: Present: regular rate, normal rhythm, normal heart sounds. Absent: systolic murmur, diastolic murmur, rubs, gallop, clicks GI/Abdominal exam: Present: soft, normal bowel sounds. Absent: distended, tenderness, guarding, rebound, rigid Extremities exam: Present: tenderness (Is palpation of the left wrist with evidence of edema no definite deformity tenderness palpation of the dorsal left hand also), normal capillary refill. Absent: pedal edema, joint swelling, calf tenderness Back exam: Present: normal inspection Neurological exam: Present: alert, oriented X3, CN II-XII intact Psychiatric exam: Present: normal affect, normal mood Skin exam: Present: warm, dry, intact, normal color. Absent: rash Course Vital Signs 04/08/18 04/08/18 04/09/18 19:14 19:37 00:37 Temperature 97.5 F L 98.8 F 97.8 F Pulse Rate 82 66 70 Respiratory 20 16 16 Rate Blood Pressure 136/59 136/72 120/90 O2 Sat by Pulse 92 L 93 L 97 Oximetry Procedures - Procedures Initial comment: The patient require a thumb spica OCL I did place this on the patient's left thumb and forearm is short 2 x 10 thumb spica. There is a good neurovascular exam afterwards patient tolerated this well. Medical Decision Making - Medical Decision Making I did discuss the findings the patient family as well as Dr. Odom the patient will be admitted for IV hydration and evaluation of the left scaphoid fracture. Recurrent falls - Lab Data Result diagrams: 04/08/18 19:40 04/08/18 19:40 Lab Results 04/08/18 04/08/18 04/08/18 Range/Units 19:40 19:40 19:40 WBC 16.1 H (3.8-10.6) k/uL RBC 5.65 H (3.80-5.40) m/uL Hgb 15.4 (11.4-16.0) gm/dL Hct 47.7 H (34.0-46.0) % MCV 84.5 (80.0-100.0) fL MCH 27.3 (25.0-35.0) pg MCHC 32.3 (31.0-37.0) g/dL RDW 14.0 (11.5-15.5) % Plt Count 365 (150-450) k/uL Neutrophils % 66 % Lymphocytes % 27 % Monocytes % 4 % Eosinophils % 1 % Basophils % 1 % Neutrophils # 10.6 H (1.3-7.7) k/uL Lymphocytes # 4.4 (1.0-4.8) k/uL Monocytes # 0.7 (0-1.0) k/uL Eosinophils # 0.2 (0-0.7) k/uL Basophils # 0.1 (0-0.2) k/uL Sodium 134 L (137-145) mmol/L Potassium 4.7 (3.5-5.1) mmol/L Chloride 90 L (98-107) mmol/L Carbon Dioxide 27 (22-30) mmol/L Anion Gap 17 mmol/L BUN 17 (7-17) mg/dL Creatinine 0.96 (0.52-1.04) mg/dL Est GFR (CKD-EPI)AfAm 69 (>60 ml/min/1.73 sqM) Est GFR (CKD-EPI)NonAf 60 (>60 ml/min/1.73 sqM) Glucose 267 H (74-99) mg/dL Calcium 9.8 (8.4-10.2) mg/dL Magnesium 1.7 (1.6-2.3) mg/dL Total Bilirubin 0.8 (0.2-1.3) mg/dL AST 20 (14-36) U/L ALT 10 (9-52) U/L Alkaline Phosphatase 158 H (38-126) U/L Ammonia (<30) umol/L Total Creatine Kinase 22 L (30-135) U/L CK-MB (CK-2) <0.2 (0.0-2.4) ng/mL CK-MB (CK-2) Rel Index Total Protein 7.7 (6.3-8.2) g/dL Albumin 4.1 (3.5-5.0) g/dL Amylase 36 (30-110) U/L Lipase <10 L (23-300) U/L Urine Color Urine Appearance (Clear) Urine pH (5.0-8.0) Ur Specific Alpine (1.001-1.035) Urine Protein (Negative) Urine Glucose (UA) (Negative) Urine Ketones (Negative) Urine Blood (Negative) Urine Nitrite (Negative) Urine Bilirubin (Negative) Urine Urobilinogen (<2.0) mg/dL Ur Leukocyte Esterase (Negative) Urine WBC (0-5) /hpf Urine WBC Clumps (None) /hpf Ur Squamous Epith Cells (0-4) /hpf Urine Bacteria (None) /hpf Hyaline Casts (0-2) /lpf Urine Mucus (None) /hpf 04/08/18 04/08/18 Range/Units 21:27 21:53 WBC (3.8-10.6) k/uL RBC (3.80-5.40) m/uL Hgb (11.4-16.0) gm/dL Hct (34.0-46.0) % MCV (80.0-100.0) fL MCH (25.0-35.0) pg MCHC (31.0-37.0) g/dL RDW (11.5-15.5) % Plt Count (150-450) k/uL Neutrophils % % Lymphocytes % % Monocytes % % Eosinophils % % Basophils % % Neutrophils # (1.3-7.7) k/uL Lymphocytes # (1.0-4.8) k/uL Monocytes # (0-1.0) k/uL Eosinophils # (0-0.7) k/uL Basophils # (0-0.2) k/uL Sodium (137-145) mmol/L Potassium (3.5-5.1) mmol/L Chloride (98-107) mmol/L Carbon Dioxide (22-30) mmol/L Anion Gap mmol/L BUN (7-17) mg/dL Creatinine (0.52-1.04) mg/dL Est GFR (CKD-EPI)AfAm (>60 ml/min/1.73 sqM) Est GFR (CKD-EPI)NonAf (>60 ml/min/1.73 sqM) Glucose (74-99) mg/dL Calcium (8.4-10.2) mg/dL Magnesium (1.6-2.3) mg/dL Total Bilirubin (0.2-1.3) mg/dL AST (14-36) U/L ALT (9-52) U/L Alkaline Phosphatase (38-126) U/L Ammonia <9 (<30) umol/L Total Creatine Kinase (30-135) U/L CK-MB (CK-2) (0.0-2.4) ng/mL CK-MB (CK-2) Rel Index Total Protein (6.3-8.2) g/dL Albumin (3.5-5.0) g/dL Amylase (30-110) U/L Lipase (23-300) U/L Urine Color Yellow Urine Appearance Cloudy H (Clear) Urine pH 5.5 (5.0-8.0) Ur Specific Alpine 1.023 (1.001-1.035) Urine Protein 2+ H (Negative) Urine Glucose (UA) 3+ H (Negative) Urine Ketones Negative (Negative) Urine Blood Negative (Negative) Urine Nitrite Negative (Negative) Urine Bilirubin Negative (Negative) Urine Urobilinogen <2.0 (<2.0) mg/dL Ur Leukocyte Esterase Moderate H (Negative) Urine WBC 14 H (0-5) /hpf Urine WBC Clumps Occasional H (None) /hpf Ur Squamous Epith Cells 3 (0-4) /hpf Urine Bacteria Few H (None) /hpf Hyaline Casts 39 H (0-2) /lpf Urine Mucus Many H (None) /hpf - Radiology Data Radiology results: report reviewed (I did review the imaging and reports are is evidence of the occult fracture of the left scaphoid bone.), image reviewed Disposition Clinical Impression: Fall, Failure to thrive, Dehydration, Fracture of scaphoid of left wrist Disposition: ADMITTED IP TO THIS [facility] Condition: Stable Referrals: Shane Burnham MD [Primary Care Provider] - 1-2 days
[2018-04-08 20:38] LABS: Basophils # (A) 0.1 k/uL (0-0.2); Basophils % (A) 1 %; Eosinophils # (A) 0.2 k/uL (0-0.7); Eosinophils % (A) 1 %; HCT 47.7 % (34.0-46.0); HGB 15.4 gm/dL (11.4-16.0); Lymphocytes # (A) 4.4 k/uL (1.0-4.8); Lymphocytes % (A) 27 %; MCH 27.3 pg (25.0-35.0); MCHC 32.3 g/dL (31.0-37.0); MCV 84.5 fL (80.0-100.0); Mean Platelet Volume 9.1; Monocytes # (A) 0.7 k/uL (0-1.0); Monocytes % (A) 4 %; Neutrophils # (A) 10.6 k/uL (1.3-7.7); Neutrophils % (A) 66 %; Platelet Count 365 k/uL (150-450); RBC 5.65 m/uL (3.80-5.40); WBC 16.1 k/uL (3.8-10.6)
[2018-04-08 21:00] LABS: ALT 10 U/L (9-52); AST 20 U/L (14-36); Albumin 4.1 g/dL (3.5-5.0); Alkaline Phosphatase 158 U/L (38-126); Amylase 36 U/L (30-110); Anion Gap 17 mmol/L; Blood Urea Nitrogen 17 mg/dL (7-17); Calcium 9.8 mg/dL (8.4-10.2); Carbon Dioxide 27 mmol/L (22-30); Chloride 90 mmol/L (98-107); Glucose 267 mg/dL (74-99); Lipase <10 U/L (23-300); Magnesium 1.7 mg/dL (1.6-2.3); Sodium 134 mmol/L (137-145); Total Bilirubin 0.8 mg/dL (0.2-1.3); Total Protein 7.7 g/dL (6.3-8.2)
[2018-04-08 21:04] LABS: Potassium 4.7 mmol/L (3.5-5.1)
[2018-04-08 21:09] LABS: Creatine Kinase MB <0.2 ng/mL (0.0-2.4)
--- NOTE | 2018-04-08 21:09 | CT ---
EXAMINATION TYPE: CT brain wo con DATE OF EXAM: 04/08/2018 COMPARISON: 02/14/2017 INDICATION: Frequent falls. DLP: 950.3 mGycm, Automated exposure control for dose reduction was used. CONTRAST: None CT of the brain is performed utilizing 3 mm thick sections through the posterior fossa and 3 mm thick sections through the remaining calvarium. Study is performed within 24 hours of arrival to the hosp [facility]. No abnormal hyperdensity is present to suggest an acute intracranial hemorrhage. No mass lesion is evident. No acute infarcts are evident. Periventricular white matter hypodensity appears patchy to confluent c ompatible with chronic white matter ischemic type changes. Findings appear similar to 2017. Ventricles and sulci are appropriate for the patient age. There is an air-fluid level within the right sphenoid sinus. Remaining paranasal sinuses and mastoid air cells are clear. IMPRESSIONS: 1. Atrophy with periventricular white matter ischemic changes. 2. No acute intracranial process 3. Correlate for acute left sphenoid sinusitis.
--- NOTE | 2018-04-08 21:17 | XR ---
EXAMINATION TYPE: XR chest 2V DATE OF EXAM: 04/08/2018 COMPARISON: NONE INDICATION: Cough A. fib pain from fall TECHNIQUE: Frontal and lateral views of the chest are obtained. FINDINGS: The heart size is normal. The pulmonary vasculature is normal. The lungs are clear. IMPRESSION: 1. No acute pulmonary process.
--- NOTE | 2018-04-08 21:18 | XR ---
EXAMINATION TYPE: XR hand complete LT DATE OF EXAM: 04/08/2018 COMPARISON: NONE HISTORY: Pain, fall TECHNIQUE: Three-view left hand FINDINGS: Structures are slightly osteopenic. No acute fractures are evident. Mild narrowing of the p roximal distal interphalangeal joint spaces is present. Soft tissues are unremarkable. Follow-up study can be performed 7-10 days from acute trauma for continued pain. IMPRESSION: 1. No acute osseous abnormality.
--- NOTE | 2018-04-08 21:19 | XR ---
EXAMINATION TYPE: XR wrist complete LT DATE OF EXAM: 04/08/2018 COMPARISON: NONE HISTORY: Fall, pain TECHNIQUE: 4 view left wrist FINDINGS: There is a subtle lucency within the distal scaphoid. An occult fracture is suspected. No additional areas suspicious for fracture is evident. Joint spaces appear preserved. If confirmation is required, follow up study in 7-10 days could be performed. Nuclear medicine and MR I could also evaluate the suspected fracture. IMPRESSION: 1. Suspected occult nondisplaced fracture of the distal scaphoid. Follow-up recommended.
[2018-04-08 21:25] LABS: Creatine Kinase 22 U/L (30-135)
[2018-04-08 21:57] LABS: Appearance,Urine Cloudy (Clear); Bacteria,Urine Few /hpf; Bilirubin,Urine Negative (Negative); Blood,Urine Negative (Negative); Color,Urine Yellow; Glucose,Urine (UA) 3+ (Negative); Hyaline Casts,Urine 39 /lpf (0-2); Ketones,Urine Negative (Negative); Leukocyte Esterase,Urine Moderate (Negative); Mucus,Urine Many /hpf; Nitrite,Urine Negative (Negative); PH, Urine 5.5 (5.0-8.0); Protein,Urine 2+ (Negative); Specific Gravity,Urine 1.023 (1.001-1.035); Squamous Epithelial Cell,Urine 3 /hpf (0-4); Urobilinogen,Urine <2.0 mg/dL (<2.0); WBC,Urine 14 /hpf (0-5)
[2018-04-08] MEDS ORDERED: fentaNYL (PF) 50 MCG/ML 2 ML AMP IV STA (23:13)
[2018-04-08] MEDS: NYSTATIN 100,000 UNIT/GM POWD 15 GM TOPICAL SCH (23:27)
[2018-04-09] MEDS ORDERED: NALOXONE 0.4 MG/ML 1 ML VIAL IV PRN (00:54)
[2018-04-09] MEDS ORDERED: NYSTATIN 100,000 UNIT/GM POWD 15 GM TOPICAL PRN (00:57)
[2018-04-09] MEDS ORDERED: oxyCODONE-APAP 10-325MG 1 EACH TAB PO PRN (00:57)
[2018-04-09] MEDS ORDERED: ONDANSETRON 4 MG TAB PO PRN (00:57)
[2018-04-09] MEDS ORDERED: PENCICLOVIR 1% TOPICAL PRN (00:57)
[2018-04-09] MEDS ORDERED: hydrOXYzine PAMOATE 25 MG CAP PO PRN (00:57)
[2018-04-09] MEDS ORDERED: LORazepam 1 MG TAB PO PRN (00:57)
[2018-04-09] MEDS ORDERED: PANTOPRAZOLE 40 MG TABLET PO SCH (07:30)
[2018-04-09] MEDS ORDERED: ACETAMINOPHEN TAB 325 MG TAB PO PRN (07:44)
[2018-04-09] MEDS ORDERED: SODIUM CHLORIDE 0.9% 1,000 ML IV SCH (07:45)
[2018-04-09 07:52] LABS: Glucose,Whole Blood 210 mg/dL (75-99)
[2018-04-09] MEDS: INSULIN ASPART 100 UNIT/ML 1 ML 10 ML VIAL SQ SCH ×5 (08:52→16:40)
[2018-04-09] MEDS ORDERED: GABAPENTIN 300 MG CAP PO SCH ×2 (09:00→21:00)
[2018-04-09] MEDS ORDERED: INSULIN DETEMIR 100 UNIT/ML 10 ML VIAL SQ SCH ×2 (09:00→21:00)
[2018-04-09] MEDS ORDERED: METOPROLOL TARTRATE 50 MG TAB PO SCH (09:00)
[2018-04-09] MEDS ORDERED: VENLAFAXINE HCL 75 MG TAB PO SCH ×2 (09:00→21:00)
[2018-04-09] MEDS ORDERED: BISACODYL 5 MG TABLET.DR PO SCH (09:00)
[2018-04-09] MEDS ORDERED: CALCIUM CARBONATE 500 MG CHEWABLE PO SCH (09:00)
[2018-04-09] MEDS ORDERED: amLODIPine 5 MG TAB PO SCH (09:00)
[2018-04-09] MEDS: NYSTATIN 100,000 UNIT/GM POWD 15 GM TOPICAL SCH ×2 (09:58→16:40)
--- NOTE | 2018-04-09 10:31 | P.CNOR ---
History of Present Illness - [facility] Consult date: 04/09/18 Consult reason: fracture History of present illness: Michelle is a 68 y/o female who presented to [facility] last night 04/08 due to left wrist pain and frequent falls, radiographs revealed a left scaphoid fracture. She was placed in a thumb spica splint in the ER and admitted due to dehydration and frequent falls. Patient states she has fell at her home 5 or more times over the last week and has been experienced left wrist pain for the past 2 days. She cannot attribute this new pain to a specific fall or incident. She states she did not hit her head/neck/back during any of the falls and does not complain of any other joint pain. She states the left wrist pain is most prominent on the dorsum of the left hand radiating from the 1st CMC joint across to her 5th CMC joint. She has no previous injuries or surgeries to her left wrist. Past Medical History Past Medical History: Atrial Fibrillation, Cancer, CVA/TIA, Diabetes Mellitus, Hyperlipidemia, Sleep Apnea/CPAP/BIPAP Additional Past Medical History / Comment(s): Morbid obesity, coronary artery disease with previous angioplasty to LAD in 2009, hypertension, hepatocellular carcinoma, obstructive sleep apnea, diabetes mellitus, hyperlipidemia, CVA/TIA, chronic atrial fibrillation, hiatal hernia, spinal stenosis, degenerative disc disease involving L3 and L4, diabetic peripheral neuropathy, hyperactive bladder , history of septic left knee joint post arthroplasty History of Any Multi-Drug Resistant Organisms: MRSA Year Discovered:: 2010 MDRO Source:: left knee Past Surgical History: Adenoidectomy, Bariatric Surgery, Cholecystectomy, Heart Catheterization With Stent, Hernia Repair, Hysterectomy, Orthopedic Surgery, Tonsillectomy Additional Past Surgical History / Comment(s): lap band placed in 2003, prolapsed, removed in 2005, neuro stimulator in back, one stent to LAD after stress test. Left knee arthroscopic surgery, right total knee arthroplasty, left total knee arthroplasty 10/01/2011, repair of quadriceps tendon 08/21/2011 , left knee patellar tendon repair 09/24/2011, removal of the hardware of the left total knee arthroplasty with implantation of the antibiotic spacer October 08 2011, total left knee hardware replacement in May 2012. EGD on March [address] Duane Crawford. No changes to surgical history per patient () , cholecystectomy, tonsillectomy, adenoidectomy, total abdominal hysterectomy and bilateral salpingo-oophorectomy, repair of a quadriceps tendon, trigger finger, left hand in 2003 with subsequent reversal in 2005. States she's had liver cancer that is now in remission. Doctor's with physicians from [place]. states she underwent no treatments for the cancer Past Anesthesia/Blood Transfusion Reactions: No Reported Reaction Date of Last Stent Placement:: 05/17/2010 Past Psychological History: Anxiety, Depression Additional Psychological History / Comment(s): Patient is living at home with daughter, son-in-law, grandchildren and great-grandchildren. There are multiple dogs and cats in home. Lives in a 4 bedroom home. States it is her home. Also states the arrangement is "perfect" for her. Smoking Status: Never smoker Past Alcohol Use History: None Reported Past Drug Use History: Opiates - Past Family History Mother Family Medical History: Congestive Heart Failure (CHF) Father Family Medical History: Myocardial Infarction ([place]) Medications and Allergies Home Medications Medication Instructions Recorded Confirmed Type Atorvastatin [Lipitor] 40 mg PO HS #30 tablet 04/06/14 04/08/18 Rx amLODIPine [Norvasc] 5 mg PO DAILY #30 tab 04/06/14 04/08/18 Rx Gabapentin [Neurontin] 600 mg PO QAM 08/10/14 04/08/18 History LORazepam [Ativan] 1 mg PO Q6H PRN 08/10/14 04/08/18 History Pantoprazole Sodium 40 mg PO DAILY 08/10/14 04/08/18 History Penciclovir 1% Cream [Denavir 1 applic TOPICAL 5XD PRN 08/10/14 04/08/18 History Cream] Solifenacin Succinate [Vesicare] 10 mg PO HS 08/10/14 04/08/18 History Calcium Carbonate [Calcium] 600 mg PO DAILY 06/26/15 04/08/18 History fentaNYL 75MCG/HR PATCH [Duragesic 1 patch TRANSDERM Q72H 06/26/15 04/08/18 History 75MCG/HR] Ondansetron [Zofran] 4 mg PO Q8H PRN 03/26/16 04/08/18 History Gabapentin [Neurontin] 900 mg PO HS 04/02/16 04/08/18 History Nystatin [Nystop] 1 applic TOPICAL DAILY PRN 02/14/17 04/08/18 History Metoprolol Tartrate [Lopressor] 50 mg PO BID #60 tab 02/17/17 04/08/18 Rx Bisacodyl [Dulcolax] 5 mg PO DAILY 05/18/17 04/08/18 History Insulin Glargine,Hum.rec.anlog 30 unit SQ QAM 05/18/17 04/08/18 History [Lantus Solostar] Insulin Glargine,Hum.rec.anlog 70 unit SQ HS 05/18/17 04/08/18 History [Lantus Solostar] Venlafaxine HCl [Effexor] 75 mg PO QAM 05/18/17 04/08/18 History Venlafaxine HCl [Effexor] 150 mg PO HS 05/18/17 04/08/18 History hydrOXYzine PAMOATE 25 mg PO HS PRN 05/18/17 04/08/18 History oxyCODONE-APAP 10-325MG [Percocet 1 tab PO BID PRN 05/18/17 04/08/18 History 10-325 mg] Insulin Aspart [NovoLOG Flexpen] 18 units SQ TID 04/08/18 04/08/18 History Allergies Allergy/AdvReac Type Severity Reaction Status Date / Time metformin HCl Allergy Unknown Verified 04/08/18 20:09 [From Glucophage] Physical Examination General: Elderly female lying in bed comfortably in no acute distress Extremities: Left wrist thumb spica splint in place, intact. No obvious deformity of left wrist upon inspection. Pain to palpation of dorsum of hand, snuffbox tenderness present. Capillary refill present upper extremities bilaterally. No redness, erythema, or skin breakdown on left wrist. Decreased ROM to flexion and extension of left wrist. Neuro: Alert and oriented x3. Patient able to move all fingers, sensation intact upper extremities bilaterally. Results - Labs Labs: Abnormal Lab Results - Last 24 Hours (Table) 04/08/18 04/08/18 04/08/18 Range/Units 19:40 19:40 19:40 WBC 16.1 H (3.8-10.6) k/uL RBC 5.65 H (3.80-5.40) m/uL Hct 47.7 H (34.0-46.0) % Neutrophils # 10.6 H (1.3-7.7) k/uL Sodium 134 L (137-145) mmol/L Chloride 90 L (98-107) mmol/L Glucose 267 H (74-99) mg/dL POC Glucose (mg/dL) (75-99) mg/dL Alkaline Phosphatase 158 H (38-126) U/L Total Creatine Kinase 22 L (30-135) U/L Lipase <10 L (23-300) U/L Urine Appearance (Clear) Urine Protein (Negative) Urine Glucose (UA) (Negative) Ur Leukocyte Esterase (Negative) Urine WBC (0-5) /hpf Urine WBC Clumps (None) /hpf Urine Bacteria (None) /hpf Hyaline Casts (0-2) /lpf Urine Mucus (None) /hpf 04/08/18 04/09/18 Range/Units 21:27 07:49 WBC (3.8-10.6) k/uL RBC (3.80-5.40) m/uL Hct (34.0-46.0) % Neutrophils # (1.3-7.7) k/uL Sodium (137-145) mmol/L Chloride (98-107) mmol/L Glucose (74-99) mg/dL POC Glucose (mg/dL) 210 H (75-99) mg/dL Alkaline Phosphatase (38-126) U/L Total Creatine Kinase (30-135) U/L Lipase (23-300) U/L Urine Appearance Cloudy H (Clear) Urine Protein 2+ H (Negative) Urine Glucose (UA) 3+ H (Negative) Ur Leukocyte Esterase Moderate H (Negative) Urine WBC 14 H (0-5) /hpf Urine WBC Clumps Occasional H (None) /hpf Urine Bacteria Few H (None) /hpf Hyaline Casts 39 H (0-2) /lpf Urine Mucus Many H (None) /hpf H & H 04/08/18 Range/Units 19:40 Hgb 15.4 (11.4-16.0) gm/dL Hct 47.7 H (34.0-46.0) % Result Diagrams: 04/08/18 19:40 04/08/18 19:40 Assessment and Plan Assessment: 68 y/o female with a non displaced left scaphoid fracture secondary to a fall. Fall Insulin dependent diabetes mellitus Plan: Thumb spica splint in place from ER, plan to remove and apply short arm thumb spica cast later today. Discharge and follow up with [facility] in 1 week for repeat xrays and possible bone stimulator therapy Time with Patient: Less than 30
[2018-04-09 11:52] LABS: Glucose,Whole Blood 178 mg/dL (75-99)
[2018-04-09] MEDS ORDERED: CEFUROXIME 250 MG TAB PO SCH (12:15)
--- NOTE | 2018-04-09 13:33 | P.HPIM ---
History of Present Illness H&P Date: 04/09/18 HISTORY AND PHYSICAL AND DISCHARGE SUMMARY: This is a 68-year-old female one of Dr. Burnham with a previous medical history significant for coronary artery disease status post PCI and stent placement of the LAD back in 2009 with ischemic cardiomyopathy, hypertension and hypertensive perivascular disease with left ventricular hypertrophy, chronic kidney disease stage III, diabetes mellitus type 2, obstructive sleep apnea, CVA, paroxysmal atrial fibrillation. Patient gives history that she fell 5 times last week and 1. she did hit her forehead which was worse while. She states her daughter is living with her and she is not sure why she is having these falls. She states that she was getting her clothes and planning to go out shopping. She was standing there talking to her daughter and all the sudden she went down to the floor and her leg gave out. She states because of her bad knee she is not able to get herself up and her 2 grandsons help her back into bed. Her wrist was painful but she waited until yesterday, and as she was having increased edema to the area. Patient came into [facility] emergency center for evaluation. CT of the brain showed atrophy with periventricular white matter ischemic changes. No acute intracranial process. Correlate for acute left sphenoid sinusitis. Chest x-ray shows no acute pulmonary process. Left wrist x-ray shows suspected occult nondisplaced fracture of the distal scaphoid. Patient has been seen by orthopedics with plan for thumb spica cast and follow- up in the office in one week for repeat x-rays and possible bone stimulator therapy. Physical therapy has recommended platform walker which will be obtained through the help of [facility]. Patient will be discharged later today once all arrangements are completed. Review of Systems All systems: negative Constitutional: Reports weakness, Denies chills, Denies fever Eyes: denies blurred vision, denies pain Ears, nose, mouth and throat: Denies headache, Denies sore throat, Denies vertigo Cardiovascular: Reports dyspnea on exertion, Denies chest pain, Denies lightheadedness, Denies shortness of breath, Denies syncope Respiratory: Denies cough, Denies cough with sputum, Denies dyspnea, Denies excessive sputum, Denies hemoptysis, Denies wheezing Gastrointestinal: Denies abdominal pain, Denies diarrhea, Denies nausea, Denies vomiting Genitourinary: Reports dysuria, Denies hematuria Musculoskeletal: Denies myalgias Musculoskeletal: left: wrist pain, wrist swelling Integumentary: Denies pruritus, Denies rash Neurological: Denies numbness, Denies weakness Psychiatric: Denies anxiety, Denies depression Endocrine: Denies fatigue, Denies weight change Past Medical History Past Medical History: Atrial Fibrillation, Cancer, CVA/TIA, Diabetes Mellitus, Hyperlipidemia, Sleep Apnea/CPAP/BIPAP Additional Past Medical History / Comment(s): Morbid obesity, coronary artery disease with previous angioplasty to LAD in 2009, hypertension, hepatocellular carcinoma, obstructive sleep apnea, diabetes mellitus, hyperlipidemia, CVA/TIA, chronic atrial fibrillation, hiatal hernia, spinal stenosis, degenerative disc disease involving L3 and L4, diabetic peripheral neuropathy, hyperactive bladder , history of septic left knee joint post arthroplasty History of Any Multi-Drug Resistant Organisms: MRSA Date of last positivie culture/infection: 2010 MDRO Source:: left knee Past Surgical History: Adenoidectomy, Bariatric Surgery, Cholecystectomy, Heart Catheterization With Stent, Hernia Repair, Hysterectomy, Orthopedic Surgery, Tonsillectomy Additional Past Surgical History / Comment(s): lap band placed in 2003, prolapsed, removed in 2005, neuro stimulator in back, one stent to LAD after stress test. Left knee arthroscopic surgery, right total knee arthroplasty, left total knee arthroplasty 10/01/2011, repair of quadriceps tendon 08/21/2011 , left knee patellar tendon repair 09/24/2011, removal of the hardware of the left total knee arthroplasty with implantation of the antibiotic spacer October 08 2011, total left knee hardware replacement in May 2012. EGD on March [address] Duane Crawford. No changes to surgical history per patient () , cholecystectomy, tonsillectomy, adenoidectomy, total abdominal hysterectomy and bilateral salpingo-oophorectomy, repair of a quadriceps tendon, trigger finger, left hand in 2003 with subsequent reversal in 2005. States she's had liver cancer that is now in remission. Doctor's with physicians from [facility]. states she underwent no treatments for the cancer Past Anesthesia/Blood Transfusion Reactions: No Reported Reaction Date of Last Stent Placement:: 05/17/2010 Past Psychological History: Anxiety, Depression Additional Psychological History / Comment(s): Patient is living at home with daughter, son-in-law, grandchildren and great-grandchildren. There are multiple dogs and cats in home. Lives in a 4 bedroom home. States it is her home. Also states the arrangement is "perfect" for her. Smoking Status: Never smoker Past Alcohol Use History: None Reported Past Drug Use History: Opiates - Past Family History Mother Family Medical History: Congestive Heart Failure (CHF) Father Family Medical History: Myocardial Infarction ([place]) Medications and Allergies Home Medications Medication Instructions Recorded Confirmed Type Atorvastatin [Lipitor] 40 mg PO HS #30 tablet 04/06/14 04/08/18 Rx amLODIPine [Norvasc] 5 mg PO DAILY #30 tab 04/06/14 04/08/18 Rx Gabapentin [Neurontin] 600 mg PO QAM 08/10/14 04/08/18 History LORazepam [Ativan] 1 mg PO Q6H PRN 08/10/14 04/08/18 History Pantoprazole Sodium 40 mg PO DAILY 08/10/14 04/08/18 History Penciclovir 1% Cream [Denavir 1 applic TOPICAL 5XD PRN 08/10/14 04/08/18 History Cream] Solifenacin Succinate [Vesicare] 10 mg PO HS 08/10/14 04/08/18 History Calcium Carbonate [Calcium] 600 mg PO DAILY 06/26/15 04/08/18 History fentaNYL 75MCG/HR PATCH [Duragesic 1 patch TRANSDERM Q72H 06/26/15 04/08/18 History 75MCG/HR] Ondansetron [Zofran] 4 mg PO Q8H PRN 03/26/16 04/08/18 History Gabapentin [Neurontin] 900 mg PO HS 04/02/16 04/08/18 History Nystatin [Nystop] 1 applic TOPICAL DAILY PRN 02/14/17 04/08/18 History Metoprolol Tartrate [Lopressor] 50 mg PO BID #60 tab 02/17/17 04/08/18 Rx Bisacodyl [Dulcolax] 5 mg PO DAILY 05/18/17 04/08/18 History Insulin Glargine,Hum.rec.anlog 30 unit SQ QAM 05/18/17 04/08/18 History [Lantus Solostar] Insulin Glargine,Hum.rec.anlog 70 unit SQ HS 05/18/17 04/08/18 History [Lantus Solostar] Venlafaxine HCl [Effexor] 75 mg PO QAM 05/18/17 04/08/18 History Venlafaxine HCl [Effexor] 150 mg PO HS 05/18/17 04/08/18 History hydrOXYzine PAMOATE 25 mg PO HS PRN 05/18/17 04/08/18 History oxyCODONE-APAP 10-325MG [Percocet 1 tab PO BID PRN 05/18/17 04/08/18 History 10-325 mg] Insulin Aspart [NovoLOG Flexpen] 18 units SQ TID 04/08/18 04/08/18 History Cefuroxime [Ceftin] 250 mg PO BID #14 tablet 04/09/18 Rx Allergies Allergy/AdvReac Type Severity Reaction Status Date / Time metformin HCl Allergy Unknown Verified 04/08/18 20:09 [From Glucophage] Physical Exam Vitals: Vital Signs Temp Pulse Pulse Resp BP BP Pulse Ox 04/09/18 06:40 98.0 F 62 16 127/71 96 04/09/18 04:15 62 04/09/18 00:37 97.8 F 70 16 120/90 97 04/08/18 19:37 98.8 F 66 16 136/72 93 L 04/08/18 19:14 97.5 F L 82 20 136/59 92 L Intake and Output 04/08/18 04/09/18 04/09/18 22:59 06:59 14:59 Other: Weight 118.841 kg General appearance: mild distress, obese - EENT Eyes: Reports anicteric sclerae, Reports disc margins sharp, Reports PERRLA, Reports fundus normal, Reports normal apperance, Denies ptosis, Denies scleral icterus ENT: Reports hearing grossly normal, Reports NA/AT, Denies normal oropharynx, Denies thrush - Neck Neck: Reports normal ROM, Denies lymphadenopathy, Denies rigidity, Denies stridor, Denies thyromegaly Carotids: bilateral: upstroke delayed Thyroid: bilateral: normal size - Respiratory Respiratory: bilateral: diminished, negative: dullness, rales, rhonchi, wheezing , prolonged expiration, prolonged inspiration - Cardiovascular Rhythm: regular Heart sounds: normal: S1, S2 Abnormal Heart Sounds: Reports systolic murmur, Denies rub, Denies S3 Gallop, Denies S4 Gallop, Denies click - Gastrointestinal General gastrointestinal: Reports distended, Reports normal bowel sounds, Reports soft, Reports tenderness, Denies umbilical hernia, Denies ventral hernia - Integumentary Integumentary: Reports normal, Reports normal turgor - Neurologic Neurologic: CNII-XII intact - Musculoskeletal Musculoskeletal: Reports generalized weakness, Reports strength equal bilaterally; thumb spica casts in place to the left arm - Psychiatric Psychiatric: Reports A&O x's 3, Reports appropriate affect, Reports intact judgment & insight Results CBC & Chem 7: 04/08/18 19:40 04/08/18 19:40 Labs: Abnormal Lab Results - Last 24 Hours (Table) 04/08/18 04/08/18 04/08/18 Range/Units 19:40 19:40 19:40 WBC 16.1 H (3.8-10.6) k/uL RBC 5.65 H (3.80-5.40) m/uL Hct 47.7 H (34.0-46.0) % Neutrophils # 10.6 H (1.3-7.7) k/uL Sodium 134 L (137-145) mmol/L Chloride 90 L (98-107) mmol/L Glucose 267 H (74-99) mg/dL POC Glucose (mg/dL) (75-99) mg/dL Alkaline Phosphatase 158 H (38-126) U/L Total Creatine Kinase 22 L (30-135) U/L Lipase <10 L (23-300) U/L Urine Appearance (Clear) Urine Protein (Negative) Urine Glucose (UA) (Negative) Ur Leukocyte Esterase (Negative) Urine WBC (0-5) /hpf Urine WBC Clumps (None) /hpf Urine Bacteria (None) /hpf Hyaline Casts (0-2) /lpf Urine Mucus (None) /hpf 04/08/18 04/09/18 Range/Units 21:27 07:49 WBC (3.8-10.6) k/uL RBC (3.80-5.40) m/uL Hct (34.0-46.0) % Neutrophils # (1.3-7.7) k/uL Sodium (137-145) mmol/L Chloride (98-107) mmol/L Glucose (74-99) mg/dL POC Glucose (mg/dL) 210 H (75-99) mg/dL Alkaline Phosphatase (38-126) U/L Total Creatine Kinase (30-135) U/L Lipase (23-300) U/L Urine Appearance Cloudy H (Clear) Urine Protein 2+ H (Negative) Urine Glucose (UA) 3+ H (Negative) Ur Leukocyte Esterase Moderate H (Negative) Urine WBC 14 H (0-5) /hpf Urine WBC Clumps Occasional H (None) /hpf Urine Bacteria Few H (None) /hpf Hyaline Casts 39 H (0-2) /lpf Urine Mucus Many H (None) /hpf Thrombosis Risk Factor Assmnt - DVT/VTE Prophylaxis DVT/VTE Prophylaxis: Pharmacologic Prophylaxis ordered - Choose All That Apply Any of the Below Risk Factors Present?: Yes Each Factor Represents 1 point: Medical pt on bed rest, Obesity (BMI >25), Swollen legs (current) Other Risk Factors: Yes Each Risk Factor Represents 2 Points: Age 61-74 years Thrombosis Risk Factor Assessment Total Risk Factor Score: 5 Thrombosis Risk Factor Assessment Level: High Risk Assessment and Plan Plan: 1. Left scaphoid fracture secondary to fall from last week. [facility] with plan for short arm thumb spica cast and follow-up in the office in one week. Platform walker to be obtained. 2. Multiple falls last week most likely due to weakness in the lower extremities or syncopal by morbid obesity. 3. Diabetes mellitus type 2. 4. Hypertension and hypertensive cardiovascular disease. 5. Paroxysmal atrial fibrillation currently in sinus rhythm. 6. Liver cancer. Under the care of hematology oncology at [facility]. 7. Hyperlipidemia. 8. COPD not in exacerbation. 9. History of CAD status post myocardial infarction and prior PCI of the LAD. 10. Recurrent depression. 11. Overactive bladder. Discharge plan: Home with home care Patient placed as an observation status Impression and plan of care have been directed as dictated by the signing physician. Clare Mak nurse practitioner acting as scribe for signing physician.
[2018-04-09 15:20] VITALS: BP 122/45; PULSE 61; TEMP 98.4
[2018-04-09 16:09] LABS: Glucose,Whole Blood 58 mg/dL (75-99)
[2018-04-09 16:31] LABS: Glucose,Whole Blood 92 mg/dL (75-99)
[2018-04-09] MEDS ORDERED: OXYBUTYNIN XL 5 MG TAB.ER.24 PO SCH (21:00)
[2018-04-09] MEDS ORDERED: ATORVASTATIN 40 MG TAB PO SCH (21:00)
== END 2018-04-09 17:01 | disposition home health service (06) ==
LOC: EC 19:05 → INTOOBSV 04-09 00:54 → 4MS4W 04-09 00:54
PROVIDERS: ADMIT Internal Medicine; ATTEND Internal Medicine
DX: S62.002A Unspecified fracture of navicular [scaphoid] bone of left wrist, initial encounter for closed fracture (principal); W19.XXXA Unspecified fall, initial encounter; R53.1 Weakness; R29.6 Repeated falls; I25.10 Atherosclerotic heart disease of native coronary artery without angina pectoris; Z95.5 Presence of coronary angioplasty implant and graft; I25.5 Ischemic cardiomyopathy; E11.22 Type 2 diabetes mellitus with diabetic chronic kidney disease; N18.3 Chronic kidney disease, stage 3 (moderate); G47.33 Obstructive sleep apnea (adult) (pediatric); I48.0 Paroxysmal atrial fibrillation; I48.2 Chronic atrial fibrillation; Z86.73 Personal history of transient ischemic attack (TIA), and cerebral infarction without residual deficits; I13.10 Hypertensive heart and chronic kidney disease without heart failure, with stage 1 through stage 4 chronic kidney disease, or unspecified chronic kidney disease; E11.42 Type 2 diabetes mellitus with diabetic polyneuropathy; M25.532 Pain in left wrist; E66.01 Morbid (severe) obesity due to excess calories; Z68.42 Body mass index [BMI] 45.0-49.9, adult; E78.5 Hyperlipidemia, unspecified; M51.36 Other intervertebral disc degeneration, lumbar region; Z86.14 Personal history of Methicillin resistant Staphylococcus aureus infection; N32.81 Overactive bladder; Z98.84 Bariatric surgery status; Z90.49 Acquired absence of other specified parts of digestive tract; F41.9 Anxiety disorder, unspecified; F33.9 Major depressive disorder, recurrent, unspecified; Z79.899 Other long term (current) drug therapy; Z79.4 Long term (current) use of insulin; Z88.8 Allergy status to other drugs, medicaments and biological substances; J44.9 Chronic obstructive pulmonary disease, unspecified; I25.2 Old myocardial infarction; C22.9 Malignant neoplasm of liver, not specified as primary or secondary; E86.0 Dehydration; R62.7 Adult failure to thrive; R47.81 Slurred speech; M79.642 Pain in left hand; Y92.009 Unspecified place in unspecified non-institutional (private) residence as the place of occurrence of the external cause; Z99.89 Dependence on other enabling machines and devices; M48.061 Spinal stenosis, lumbar region without neurogenic claudication
CPT/HCPCS: 99285; 29125; 96374 ×2; 96361 ×10; 36415; 97162; 97166; 80053; 82140; 82150; 82550; 82553; 83690; 83735; 85025; 81001; 73110; 73130; 71046; 70450; G0378; J3010

== ENCOUNTER 2018-09-15 09:47 | Day surgery (SDC) | payer MEDICARE, OTHER ==
[2018-09-14 08:40] VITALS: BMI 40.2
[~2018-09-15 09:47] MED LIST: LACTATED RINGERS 1,000 ML IV SCH
[2018-09-15 11:15] VITALS: TEMP 97.8
[2018-09-15 11:26] LABS: Glucose,Whole Blood 523 mg/dL (75-99)
[2018-09-15 11:26] LABS: Glucose,Whole Blood 488 mg/dL (75-99)
[2018-09-15] MEDS ORDERED: INSULIN ASPART 100 UNIT/ML 1 ML 10 ML VIAL SQ ONE ×4 (11:31→14:04)
[2018-09-15] MEDS ORDERED: PROPOFOL 10 MG/ML 20 ML VIAL IV ONE (11:40)
[2018-09-15] MEDS ORDERED: LIDOCAINE 1% INJ 10MG/ML (20 ML MDV) ONE (11:40)
[2018-09-15 12:26] LABS: Glucose,Whole Blood 497 mg/dL (75-99)
--- NOTE | 2018-09-15 12:30 | P.PCN ---
Date of Procedure: 09/15/18 Procedure(s) Performed: Procedure: 1. Esophagogastroduodenoscopy and biopsy. 2. Total colonoscopy. Preoperative diagnosis: Abdominal pain, nausea, vomiting and weight loss. Postoperative diagnosis: 1. Small sliding hiatal hernia with no obvious esophagitis or complicated reflux disease. 2. Mild antral gastritis. 3. Colon examination within normal limits. Preparation: Dulcolax tablets. Sedation: Was provided by anesthesia. Brief clinical history: The patient is a 68-year-old female with history of liver cancer treated with arterial administration of chemotherapy around 2 & 1/ 2 years ago and history of diabetes mellitus not under control, has been experiencing postprandial pain and nausea and at times she is vomiting. She lost 100 pounds over the last year because of postprandial pain and nausea. The patient had prior colonoscopy around 5 years ago and an upper endoscopy around 2 years ago. She had a computed tomography scan last spring. She did have LAP-BAND surgery in 2000 that had to be reversed in 2005 because of prolapse. This evaluation is to investigate various possible etiologies of her symptoms. Procedure: With the patient on her left lateral decubitus position and after informed consent and adequate sedation, I passed the Olympus-GIF 160 video upper endoscope through the cricopharyngeus down the esophagus. GE junction was around 36 cm from the incisors and there was a small sliding hiatal hernia with no obvious esophagitis or complicated reflux disease. The endoscope was then passed into the stomach which was insufflated with air and inspected in detail including the retroflex view in the cardia. There was some mottling and erythema in the antrum but no ulcers or erosions. Pyloric channel, duodenal bulb, post bulbar area and descending duodenum appeared within normal limits. Because of her symptoms, I obtained biopsies from the duodenum, antrum and esophagus then the endoscope was withdrawn and I proceeded with the colonoscopy. Perianal area did not show any fissures or fistulas. There were no masses felt on digital rectal examination. The Olympus CFH 190L video colonoscope was then inserted in the rectum in the usual fashion and advanced to the cecum. The preparation was less than ideal. The mucosa appeared healthy. There was no obvious polyps or tumors or any other significant pathology to account for her symptoms. The patient tolerated the procedure well. Plan: The patient was reassured. Will await biopsy results and make further plans based on her course and biopsy results. We will keep you updated on her progress.
[2018-09-15 12:57] VITALS: BP 134/62; PULSE 47; RESP 16
[2018-09-15 13:38] LABS: Glucose,Whole Blood 448 mg/dL (75-99)
--- NOTE | 2018-09-15 14:36 | P.CONS ---
History of Present Illness - Reason for Consult Consult date: 09/15/18 hyperglycemia - Chief Complaint Hyperglycemia - History of Present Illness 68-year-old female with past medical history of diabetes mellitus, hypertension , peripheral neuropathy, chronic lower back pain and history of CVA as at [facility] for elective endoscopy and colonoscopy. She was seen and examined after her procedure. Medicine is consulted for hyperglycemia,blood glucose ranging from 448-523. Per RN, 10 units of insulin given prior to H&P. patient reports a 30 year history of diabetes, has been on insulin for the past 15 years. She takes 35 units ofglargine in the morning and 75 units of Glargine at night. She also takes 18 units of Aspart insulin 3 times a day with meals. Patient reports being very noncompliant with her mealtime insulin. She checks her blood glucose 2 times a day. Patient reports recent numbers as low as 62 and as high as on readable (her meter has a 600 limit). The patient's daughter reports that the patient underwent A1c testing 6 weeks ago and it was 11 point something. Daughter reports that the patient is noncompliant with meals, drinks large amount of pop and ice cream. They have an appointment with endocrinology pending in October. Of note, patient has chronic lower back pain and bilateral knee pain status post knee replacement. She has a spinal stimulator and is also on a fentanyl patch. She has a history of abdominal pain, that is worsened with meals. That is the reason for the endoscopy and colonoscopy today. She denies any headaches, lower extremity edema, chest pain, cough, shortness of breath, palpitations, changes in urination or bowel habits. No changes in appetite or weight. No confusion. Review of Systems All systems: negative Past Medical History Past Medical History: Atrial Fibrillation, Cancer, CVA/TIA, Diabetes Mellitus, Hyperlipidemia, Hypertension Additional Past Medical History / Comment(s): hepatocellular carcinoma, in remission, had one dose of chemo 2015, TIA X4, hiatal hernia, spinal stenosis, degenerative disc disease involving L3 and L4, diabetic peripheral neuropathy, hyperactive bladder, history of septic left knee joint post arthroplasty. RESTLESS LEG History of Any Multi-Drug Resistant Organisms: MRSA Year Discovered:: 2010 MDRO Source:: left knee Past Surgical History: Adenoidectomy, Bariatric Surgery, Cholecystectomy, Heart Catheterization With Stent, Hernia Repair, Hysterectomy, Joint Replacement, Orthopedic Surgery, Tonsillectomy Additional Past Surgical History / Comment(s): lap band placed in 2004, prolapsed, removed in 2005, neuro stimulator in back, one stent to LAD Left knee arthroscopic surgery, right total knee arthroplasty, left total knee arthroplasty 10/01/2011, repair of quadriceps tendon 08/21/2011, left knee patellar tendon repair 09/24/2011, removal of the hardware of the left total knee arthroplasty with implantation of the antibiotic spacer October 08 2011, total left knee hardware replacement in May 2012. trigger finger, left hand in 2003 with subsequent reversal in 2005. uses a walker or wheelchair Past Anesthesia/Blood Transfusion Reactions: No Reported Reaction Date of Last Stent Placement:: 05/17/2010 Smoking Status: Never smoker - Past Family History Mother Family Medical History: Congestive Heart Failure (CHF) Father Family Medical History: Myocardial Infarction ([place]) Medications and Allergies Home Medications Medication Instructions Recorded Confirmed Type Atorvastatin [Lipitor] 40 mg PO HS #30 tablet 04/06/14 09/15/18 Rx amLODIPine [Norvasc] 5 mg PO DAILY #30 tab 04/06/14 09/15/18 Rx Gabapentin [Neurontin] 600 mg PO QAM 08/10/14 09/15/18 History Pantoprazole Sodium 40 mg PO DAILY 08/10/14 09/15/18 History Penciclovir 1% Cream [Denavir 1 applic TOPICAL 5XD PRN 08/10/14 09/15/18 History Cream] Solifenacin Succinate [Vesicare] 10 mg PO HS 08/10/14 09/15/18 History Calcium Carbonate [Calcium] 600 mg PO QAM 06/26/15 09/15/18 History fentaNYL 75MCG/HR PATCH [Duragesic 1 patch TRANSDERM Q72H 06/26/15 09/15/18 History 75MCG/HR] Ondansetron [Zofran] 4 mg PO Q8H PRN 03/26/16 09/15/18 History Gabapentin [Neurontin] 900 mg PO HS 04/02/16 09/15/18 History Nystatin [Nystop] 1 applic TOPICAL DAILY PRN 02/14/17 09/15/18 History Metoprolol Tartrate [Lopressor] 50 mg PO BID #60 tab 02/17/17 09/15/18 Rx Bisacodyl [Dulcolax] 5 mg PO QAM 05/18/17 09/15/18 History Insulin Glargine,Hum.rec.anlog 35 unit SQ QAM 05/18/17 09/15/18 History [Lantus Solostar] Insulin Glargine,Hum.rec.anlog 75 unit SQ HS 05/18/17 09/15/18 History [Lantus Solostar] Venlafaxine HCl [Effexor] 75 mg PO QAM 05/18/17 09/15/18 History Venlafaxine HCl [Effexor] 150 mg PO HS 05/18/17 09/15/18 History Insulin Aspart [NovoLOG Flexpen] 18 units SQ TID-W/MEALS 04/08/18 09/15/18 History ALPRAZolam [Xanax] 1 mg PO Q6H PRN 09/14/18 09/15/18 History Aspirin [Adult Low Dose Aspirin EC] 81 mg PO DAILY 09/14/18 09/15/18 History Requip 1 tab PO HS 09/14/18 09/15/18 History Allergies Allergy/AdvReac Type Severity Reaction Status Date / Time metformin HCl Allergy "kidneys Verified 09/15/18 11:21 [From Glucophage] shut down" Physical Exam Vitals: Vital Signs Temp Pulse Resp BP BP Pulse Ox 09/15/18 12:56 47 L 16 134/62 98 09/15/18 12:24 18 95 09/15/18 12:18 62 18 98 09/15/18 12:13 63 18 108/55 91 L 09/15/18 11:07 97.8 F 69 16 183/98 97 Intake and Output 09/14/18 09/15/18 09/15/18 22:59 06:59 14:59 Intake Total 650 Balance 650 Intake: IV 650 General: [non toxic], [no distress], [appears at stated age] Derm: [warm], [dry] Head: [atraumatic], [normocephalic], [symmetric] Eyes: [EOMI], [no lid lag], [anicteric sclera] Mouth: [no lip lesion], [mucus membranes moist] Cardiovascular: [S1S2 reg], [no murmur], [positive DP pulse bilateral] Lungs: [CTA bilateral], [no rhonchi, no rales] , [no accessory muscle use] Abdominal: [soft], [ nontender to palpation], [no guarding], [no appreciable organomegaly] Ext: [no gross muscle atrophy], [no edema], [no contractures] Neuro: [no focal neuro deficits] Psych: [Alert], [oriented], [appropriate affect] Results Labs: Abnormal Lab Results - Last 24 Hours (Table) 09/15/18 09/15/18 09/15/18 Range/Units 11:24 11:25 12:24 POC Glucose (mg/dL) 523 H 488 H 497 H (75-99) mg/dL 09/15/18 Range/Units 13:35 POC Glucose (mg/dL) 448 H (75-99) mg/dL Assessment and Plan Assessment: Assessment and Plan 1. Hyperglycemia: POC glucose from 523 to 448 after 10 units of insulin. Patient is non complaint with her insulin administration and diet. Patient reports multiple readings of BG > 600 on her meter (does not register). Will give her 18 units of Aspart now. Recommend to resume regular dose of insulin after discharge. Recommend diabetic diet. Recommend accuchecks QID. Advised of hypoglycemic symptoms. FU with PCP in 1-2 days and Endocrinology in October ( earlier if possible) The rest of the management is per primary. She should resume her home medications after discharge. Thank you for this consult. Please call with additional questions.
== END 2018-09-15 14:40 | disposition home or self-care (01) ==
LOC: ORWHC2ENDO 09:47
DX: K29.50 Unspecified chronic gastritis without bleeding (principal); K44.9 Diaphragmatic hernia without obstruction or gangrene; K20.9 Esophagitis, unspecified; E11.65 Type 2 diabetes mellitus with hyperglycemia; E78.5 Hyperlipidemia, unspecified; E11.42 Type 2 diabetes mellitus with diabetic polyneuropathy; I48.91 Unspecified atrial fibrillation; I10 Essential (primary) hypertension; G25.81 Restless legs syndrome; G47.33 Obstructive sleep apnea (adult) (pediatric); I25.10 Atherosclerotic heart disease of native coronary artery without angina pectoris; G89.29 Other chronic pain; Z86.73 Personal history of transient ischemic attack (TIA), and cerebral infarction without residual deficits; Z91.19 Patient's noncompliance with other medical treatment and regimen; Z79.82 Long term (current) use of aspirin; Z79.4 Long term (current) use of insulin; Z86.14 Personal history of Methicillin resistant Staphylococcus aureus infection; Z92.21 Personal history of antineoplastic chemotherapy; Z85.05 Personal history of malignant neoplasm of liver; Z95.5 Presence of coronary angioplasty implant and graft; Z96.653 Presence of artificial knee joint, bilateral; Z79.891 Long term (current) use of opiate analgesic; Z88.8 Allergy status to other drugs, medicaments and biological substances; Z79.899 Other long term (current) drug therapy
CPT/HCPCS: 88305; 45378; 43239; J2001; J2704

== ENCOUNTER → 2019-03-24 | Outpatient (CLI) | payer MEDICARE, OTHER ==
--- NOTE | 2019-03-24 15:16 | CT ---
EXAMINATION TYPE: CT lumbar spine wo con DATE OF EXAM: 03/24/2019 3:09 PM COMPARISON: CT lumbar spine January 08, 2018 HISTORY: low back pain X many years. no recent injury. CT DLP: 1445.8 mGycm Automated exposure control for dose reduction was used. Unenhanced CT of the lumbar spine was performed. Bone and soft tissue window settings are submitted as well as coronal and sagittal reconstructions. 5 lumbar-type vertebra are redemonstrated. There is levoconvex scoliosis centered L2-L3 level redemon strated. Osseous structures are somewhat demineralized. Vertebral body heights are maintained. Slight grade 1 retrolisthesis L2 on L3 is again seen. There is multilevel moderate to advanced disc space n arrowing with multilevel vacuum disc phenomenon L2-L3 through the L5-S1 levels redemonstrated. Modera te multilevel anterior and lateral spurring is again seen. Axial images at the T12-L1 level remain within normal limits. Axial images at the L1-L2 level show mild broad disc bulge and facet degenerative changes. Spinal can al is preserved. Bilateral neural foramina are patent. Axial images at L2-L3 level show moderate posterior spur disc complex effacing anterior thecal sac wi th mild facet degenerative changes bilaterally. Bilateral neural foramina are patent. No significant change from prior. Axial images at the L3-L4 level show moderate facet degenerative changes bilaterally. There is modera te to severe broad based posterior disc protrusion effacing anterior thecal sac on axial image 47. Th ere is mild to moderate bilateral anterior inferior neural foraminal narrowing noted. Axial images at the L4-L5 level show moderate to advanced facet degenerative changes effacing posteri or lateral thecal sac with spondylolisthesis and broad-based disc protrusion effacing anterior thecal sac. There is mild to moderate bilateral anterior inferior neural foraminal narrowing. No significan t change from prior. Axial images at the L5-S1 level show moderate facet degenerative changes bilaterally. There is left p aracentral spur disc complex. There is moderate to severe left and mild right-sided neural foraminal narrowing redemonstrated. Spondylolisthesis is seen. No significant change from prior. Cholecystectomy clips are noted. There is generalized severe atrophy of visualized portion of pancrea s present. IMPRESSION: Multilevel degenerative changes mid to lower lumbar spine most prominent L4-L5 level as d etailed above.
== END | disposition home or self-care (01) ==
LOC: RADCTMAIN 14:41
PROVIDERS: ATTEND Psychiatry & Neurology Neurology
DX: M47.816 Spondylosis without myelopathy or radiculopathy, lumbar region (principal); Z88.8 Allergy status to other drugs, medicaments and biological substances; Z91.048 Other nonmedicinal substance allergy status
CPT/HCPCS: 72131

== ENCOUNTER 2019-06-06 19:02 | Emergency (ER) | payer MEDICARE, OTHER ==
[2019-06-06 19:16] VITALS: TEMP 97.5
--- NOTE | 2019-06-06 19:32 | ED ---
General Adult HPI - General Chief complaint: Fall Stated complaint: rt leg/ankle injury from fall Time Seen by Provider: 06/06/19 19:18 Source: patient, family, RN notes reviewed Mode of arrival: wheelchair Limitations: no limitations - History of Present Illness Initial comments: Patient is a pleasant 69-year-old female presenting to the emergency Department with right leg pain. Patient did have a fall yesterday. Patient does have chronic falls. Patient plaints of discomfort of the right femur region and posterior right hip region. Patient has somewhat more discomfort of the right ankle and right foot. Patient is able to bear limited weight. No other areas of injury. Patient states she may have hit her head however no loss of consciousness. Patient denies any headache weakness or confusion. - Related Data Home Medications Medication Instructions Recorded Confirmed Gabapentin [Neurontin] 300 mg PO QAM 08/10/14 06/06/19 Pantoprazole Sodium 40 mg PO DAILY 08/10/14 06/06/19 Penciclovir 1% Cream [Denavir 1 applic TOPICAL 5XD PRN 08/10/14 06/06/19 Cream] Solifenacin Succinate [Vesicare] 10 mg PO HS 08/10/14 06/06/19 Calcium Carbonate [Calcium] 600 mg PO QAM 06/26/15 06/06/19 Ondansetron [Zofran] 4 mg PO Q8H PRN 03/26/16 06/06/19 Gabapentin [Neurontin] 600 mg PO HS 04/02/16 06/06/19 Nystatin [Nystop] 1 applic TOPICAL DAILY PRN 02/14/17 06/06/19 Bisacodyl [Dulcolax] 5 mg PO QAM 05/18/17 06/06/19 Insulin Glargine,Hum.rec.anlog 35 unit SQ HS 05/18/17 06/06/19 [Lantus Solostar] Insulin Glargine,Hum.rec.anlog 75 unit SQ QAM 05/18/17 06/06/19 [Lantus Solostar] Venlafaxine HCl [Effexor] 75 mg PO QAM 05/18/17 06/06/19 Venlafaxine HCl [Effexor] 150 mg PO HS 05/18/17 06/06/19 Insulin Aspart [NovoLOG Flexpen] 18 units SQ TID-W/MEALS 04/08/18 06/06/19 ALPRAZolam [Xanax] 1 mg PO Q6H PRN 09/14/18 06/06/19 Aspirin [Adult Low Dose Aspirin EC] 81 mg PO DAILY 09/14/18 06/06/19 fentaNYL 50MCG/HR PATCH [Duragesic 50 mcg TRANSDERM Q72H 06/06/19 06/06/19 50MCG/HR] rOPINIRole HCL [Requip] 0.25 mg PO HS 06/06/19 06/06/19 Previous Rx's Medication Instructions Recorded Atorvastatin [Lipitor] 40 mg PO HS #30 tablet 04/06/14 amLODIPine [Norvasc] 5 mg PO DAILY #30 tab 04/06/14 Metoprolol Tartrate [Lopressor] 50 mg PO BID #60 tab 02/17/17 Allergies Allergy/AdvReac Type Severity Reaction Status Date / Time metformin HCl Allergy "kidneys Verified 06/06/19 19:49 [From Glucophage] shut down" Review of Systems ROS Statement: Those systems with pertinent positive or pertinent negative responses have been documented in the HPI. ROS Other: All systems not noted in ROS Statement are negative. Constitutional: Denies: fever Eyes: Denies: eye pain ENT: Denies: ear pain Respiratory: Denies: cough Cardiovascular: Denies: chest pain Endocrine: Denies: fatigue Gastrointestinal: Denies: abdominal pain Genitourinary: Denies: dysuria Musculoskeletal: Denies: back pain Skin: Denies: rash Neurological: Denies: headache, weakness, confusion Past Medical History Past Medical History: Atrial Fibrillation, Cancer, CVA/TIA, Diabetes Mellitus, Hyperlipidemia, Hypertension Additional Past Medical History / Comment(s): hepatocellular carcinoma, in remission, had one dose of chemo 2014, TIA X4, hiatal hernia, spinal stenosis, degenerative disc disease involving L3 and L4, diabetic peripheral neuropathy, hyperactive bladder, history of septic left knee joint post arthroplasty. RESTLESS LEG, History of Any Multi-Drug Resistant Organisms: MRSA Date of last positivie culture/infection: 2010 MDRO Source:: left knee Past Surgical History: Adenoidectomy, Bariatric Surgery, Cholecystectomy, Heart Catheterization With Stent, Hernia Repair, Hysterectomy, Joint Replacement, Orthopedic Surgery, Tonsillectomy Additional Past Surgical History / Comment(s): lap band placed in 2003, prolapsed, removed in 2006, neuro stimulator in back, one stent to LAD Left knee arthroscopic surgery, right total knee arthroplasty, left total knee arthroplasty 10/01/2011, repair of quadriceps tendon 08/21/2011, left knee patellar tendon repair 09/24/2011, removal of the hardware of the left total knee arthroplasty with implantation of the antibiotic spacer October 08 2011, total left knee hardware replacement in May 2012. trigger finger, left hand in 2003 with subsequent reversal in 2005. uses a walker or wheelchair Past Anesthesia/Blood Transfusion Reactions: No Reported Reaction Date of Last Stent Placement:: 05/17/2010 Past Psychological History: Anxiety, Depression Smoking Status: Never smoker Past Alcohol Use History: None Reported Past Drug Use History: None Reported - Past Family History Mother Family Medical History: Congestive Heart Failure (CHF) Father Family Medical History: Myocardial Infarction ([place]) General Exam Limitations: no limitations General appearance: alert, in no apparent distress Head exam: Present: atraumatic, normocephalic Eye exam: Present: normal appearance, PERRL, EOMI. Absent: nystagmus ENT exam: Present: normal oropharynx Neck exam: Present: normal inspection. Absent: tenderness Respiratory exam: Present: normal lung sounds bilaterally Cardiovascular Exam: Present: regular rate, normal rhythm Expanded Peripheral pulses: 2+: Posterior Tibialis (R), Dorsalis Pedis (R) GI/Abdominal exam: Present: soft. Absent: tenderness Extremities exam: Present: full ROM, tenderness (Minimal tenderness right femur region. Mild right ankle tenderness. Right foot tenderness, mostly the dorsal distal lateral foot. Full range of motion. Sensation intact.), normal capillary refill Back exam: Absent: tenderness, vertebral tenderness Neurological exam: Present: alert, oriented X3, CN II-XII intact. Absent: motor sensory deficit Psychiatric exam: Present: normal affect, normal mood Skin exam: Present: normal color. Absent: rash Course Vital Signs 06/06/19 19:11 Temperature 97.5 F L Pulse Rate 58 L Respiratory 18 Rate Blood Pressure 120/72 O2 Sat by Pulse 97 Oximetry Procedures - Orthopedic Splinting/Casting Injury #1 Side: right Lower Extremity Injury Location: short leg, foot Lower Extremity Immobilizer: posterior splint Medical Decision Making - Medical Decision Making Patient reevaluated. Patient and family updated. - Radiology Data Radiology results: image reviewed (X-ray of the right femur and pelvis shows no acute process. X-ray of the right foot and ankle shows fractures of the fourth and fifth toes and questionable ankle fracture.) Disposition Clinical Impression: Fall, Toes fractured Disposition: HOME SELF-CARE Condition: Stable Instructions (If sedation given, give patient instructions): Fall Prevention for Older Adults (ED), Foot Fracture in Adults (ED), Toe Fracture (ED) Additional Instructions: Please follow-up with primary care physician and your orthopedic doctor in the next couple days for recheck. Return for increased pain, swelling, foot problems, worsening symptoms or other concerns. Is patient prescribed a controlled substance at d/c from ED?: No Referrals: Shane Burnham MD [Primary Care Provider] - 1-2 days Nick Rowland DO [Doctor of Osteopathic Medicine] - 1-2 days Time of Disposition: 20:35
--- NOTE | 2019-06-06 20:10 | XR ---
Right ankle and right foot HISTORY: Trauma and pain 3 views of the right ankle and 3 views of the right foot submitted No comparisons Small intra-articular fractures are noted in the medial aspect of the proximal portion of the proxima l phalanx at the fourth and fifth digits with minimal displacement. There is soft tissue swelling pre sent. Small ossific densities present distal to the fibula could represent small avulsion injury or c hip fracture. Bone mineralization is reduced. There is a small plantar calcaneal spur. Enthesophyte p resent at the insertion of the Achilles tendon, calcification present within the tendon. There are va scular calcifications noted. Degenerative changes are present at the intertarsal joints. Questionable lucency medial ankle mortise. Difficult to exclude osteochondral defect. IMPRESSION: Small intra-articular fracture is at the fourth and fifth digits. Osteoarthritis. Calcifi c tendinitis. Correlate for possible small avulsion injury or chip fracture distal fibula. No disloca tion. Possible lucency as described at the medial ankle mortise.
--- NOTE | 2019-06-06 20:12 | XR ---
AP pelvis and right femur HISTORY: Trauma and pain Frontal view of the pelvis and 2 views of the right femur submitted, total of 5 images Bone mineralization is reduced. Alignment is maintained. Patient is status post right knee arthroplas ty. There are vascular calcifications noted in the soft tissues. Degenerative disc changes are presen t in the visualized spine. IMPRESSION: No fracture or dislocation.
[2019-06-06] MEDS ORDERED: HYDROmorphone 1 MG/ML 1 ML SYRINGE IM STA (20:33)
[2019-06-06 21:12] VITALS: BP 128/64; PULSE 56; RESP 17
== END 2019-06-06 20:51 | disposition home or self-care (01) ==
LOC: EC 19:02
DX: S92.511A Displaced fracture of proximal phalanx of right lesser toe(s), initial encounter for closed fracture (principal); E11.42 Type 2 diabetes mellitus with diabetic polyneuropathy; G25.81 Restless legs syndrome; F32.9 Major depressive disorder, single episode, unspecified; F41.9 Anxiety disorder, unspecified; Z79.4 Long term (current) use of insulin; Z79.82 Long term (current) use of aspirin; Z79.899 Other long term (current) drug therapy; Z88.8 Allergy status to other drugs, medicaments and biological substances; Z86.14 Personal history of Methicillin resistant Staphylococcus aureus infection; Z85.05 Personal history of malignant neoplasm of liver; Z95.5 Presence of coronary angioplasty implant and graft; Z96.653 Presence of artificial knee joint, bilateral; W18.30XA Fall on same level, unspecified, initial encounter
CPT/HCPCS: 72170; 73552; 73610; 73630; 99283; 96372; J1170

== ENCOUNTER 2019-10-06 22:50 | Inpatient (IN) | payer MEDICARE, OTHER ==
[2019-10-06] MEDS ORDERED: SODIUM CHLORIDE 0.9% 1,000 ML IV ONE (23:14)
[2019-10-07 00:06] LABS: Basophils % (A) 0 %; Eosinophils # (A) 0.1 k/uL (0-0.7); Eosinophils % (A) 0 %; HCT 44.7 % (34.0-46.0); HGB 13.8 gm/dL (11.4-16.0); Hypochromasia Slight; Lymphocytes # (A) 0.9 k/uL (1.0-4.8); Lymphocytes % (A) 8 %; MCH 27.4 pg (25.0-35.0); MCHC 30.9 g/dL (31.0-37.0); MCV 88.7 fL (80.0-100.0); Mean Platelet Volume 9.2; Monocytes # (A) 0.5 k/uL (0-1.0); Monocytes % (A) 4 %; Neutrophils # (A) 9.5 k/uL (1.3-7.7); Neutrophils % (A) 86 %; Platelet Count 225 k/uL (150-450); RBC 5.03 m/uL (3.80-5.40); RDW 13.4 % (11.5-15.5); WBC 11.1 k/uL (3.8-10.6)
[2019-10-07 00:08] LABS: Albumin 3.2 g/dL (3.5-5.0); Calcium 8.6 mg/dL (8.4-10.2); Potassium 4.9 mmol/L (3.5-5.1); Total Bilirubin 0.7 mg/dL (0.2-1.3); Total Protein 6.2 g/dL (6.3-8.2)
[2019-10-07 00:14] LABS: INR 0.9 (<1.2); Partial Thromboplastin Time 23.6 sec (22.0-30.0)
[2019-10-07 00:16] LABS: Magnesium 1.6 mg/dL (1.6-2.3)
[2019-10-07] MEDS ORDERED: SODIUM CHLORIDE 0.9% 1,000 ML IV ONE (00:29)
--- NOTE | 2019-10-07 00:46 | ED ---
General Adult HPI - General Chief complaint: Recheck/Abnormal Lab/Rx Stated complaint: High Sugar Time Seen by Provider: 10/06/19 23:00 Source: patient, family Mode of arrival: ambulatory Limitations: no limitations - History of Present Illness Initial comments: The patient is a 69-year-old female with past medical history of diabetes, A. fib and hepatocellular cancer in remission who presents emergency Department with reported altered mental status. The history is provided by the patient's daughter. She states the patient has been altered this morning. She did check her blood sugars and they were elevated. Daughter suspects the patient has not been taking her insulin as directed. She did give her 18 units of her fast acting insulin 70 units of her nighttime insulin. This was around 845. She then checked her sugars 2 hours later and the patient still had elevated blood sugars. States that this has happened to her before in the past and she ended up hospitalized on an insulin drip. She states that she has had confusion previously with her elevated blood sugars. 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 The patient no longer drives so this information his falls. She is also talking about family members that are . Daughter is unsure if the patient sustained any falls. The patient is denying any. No report of any fevers or chills. The patient has had nausea and vomiting since last night. No chest pain or shortness of breath. Does admit to mild abdominal pain. No diarrhea or constipation. There are no other alleviating, precipitating or modifying factors - Related Data Home Medications Medication Instructions Recorded Confirmed Pantoprazole Sodium 40 mg PO DAILY 08/10/14 10/07/19 Penciclovir 1% Cream [Denavir 1 applic TOPICAL 5XD PRN 08/10/14 10/07/19 Cream] Solifenacin Succinate [Vesicare] 10 mg PO HS 08/10/14 10/07/19 Calcium Carbonate [Calcium] 600 mg PO PRN 06/26/15 06/06/19 Ondansetron [Zofran] 4 mg PO Q8H PRN 03/26/16 10/07/19 Gabapentin [Neurontin] 600 mg PO HS 04/02/16 10/07/19 Nystatin [Nystop] 1 applic TOPICAL DAILY PRN 02/14/17 10/07/19 Bisacodyl [Dulcolax] 5 mg PO QAM 05/18/17 10/07/19 Venlafaxine HCl [Effexor] 75 mg PO QAM 05/18/17 10/07/19 Venlafaxine HCl [Effexor] 150 mg PO HS 05/18/17 10/07/19 Insulin Aspart [NovoLOG Flexpen] 18 units SQ TID-W/MEALS 04/08/18 10/07/19 Aspirin [Adult Low Dose Aspirin EC] 81 mg PO DAILY 09/14/18 10/07/19 fentaNYL 50MCG/HR PATCH [Duragesic 50 mcg TRANSDERM Q72H 06/06/19 10/07/19 50MCG/HR] rOPINIRole HCL [Requip] 0.25 mg PO HS 06/06/19 10/07/19 Metoprolol Tartrate 25 mg PO BID 10/07/19 10/07/19 Previous Rx's Medication Instructions Recorded Atorvastatin [Lipitor] 40 mg PO HS #30 tablet 04/06/14 amLODIPine [Norvasc] 5 mg PO DAILY #30 tab 04/06/14 Insulin Glargine,Hum.rec.anlog 30 unit SQ HS #100 ml 10/07/19 [Lantus Solostar] Insulin Glargine,Hum.rec.anlog 45 unit SQ DAILY #100 ml 10/07/19 [Lantus Solostar] Allergies Allergy/AdvReac Type Severity Reaction Status Date / Time metformin HCl Allergy "kidneys Verified 10/07/19 09:32 [From Glucophage] shut down" Review of Systems ROS Statement: Those systems with pertinent positive or pertinent negative responses have been documented in the HPI. ROS Other: All systems not noted in ROS Statement are negative. Past Medical History Past Medical History: Atrial Fibrillation, Cancer, CVA/TIA, Diabetes Mellitus, Hyperlipidemia, Hypertension Additional Past Medical History / Comment(s): hepatocellular carcinoma, in remission, had one dose of chemo 2015, TIA X4, hiatal hernia, spinal stenosis, degenerative disc disease involving L3 and L4, diabetic peripheral neuropathy, hyperactive bladder, history of septic left knee joint post arthroplasty. REST LESS LEG, History of Any Multi-Drug Resistant Organisms: MRSA Date of last positivie culture/infection: 2010 MDRO Source:: left knee Past Surgical History: Adenoidectomy, Bariatric Surgery, Cholecystectomy, Heart Catheterization With Stent, Hernia Repair, Hysterectomy, Joint Replacement, Orthopedic Surgery, Tonsillectomy Additional Past Surgical History / Comment(s): lap band placed in 2004, prolapsed, removed in 2005, neuro stimulator in back, one stent to LAD Left kn ee arthroscopic surgery, right total knee arthroplasty, left total knee arthroplasty 10/01/2011, repair of quadriceps tendon 08/21/2011, left knee patellar tendon repair 09/24/2011, removal of the hardware of the left total knee arthroplasty with implantation of the antibiotic spacer October 08 2011, total left knee hardware replacement in May 2012. trigger finger, left hand in 2003 with subsequent reversal in 2005. uses a walker or wheelchair Past Anesthesia/Blood Transfusion Reactions: No Reported Reaction Date of Last Stent Placement:: 05/17/2010 Past Psychological History: Anxiety, Depression Smoking Status: Never smoker Past Alcohol Use History: None Reported Past Drug Use History: None Reported - Past Family History Mother Family Medical History: Congestive Heart Failure (CHF) Father Family Medical History: Myocardial Infarction ([place]) General Exam Limitations: no limitations General appearance: alert, in no apparent distress, other (confused) Head exam: Present: atraumatic, normocephalic, normal inspection Eye exam: Present: normal appearance, PERRL, EOMI. Absent: scleral icterus, conjunctival injection, periorbital swelling ENT exam: Present: normal exam, mucous membranes moist Neck exam: Present: normal inspection. Absent: tenderness, meningismus, lymphadenopathy Respiratory exam: Present: normal lung sounds bilaterally. Absent: respiratory distress, wheezes, rales, rhonchi, stridor Cardiovascular Exam: Present: regular rate, normal rhythm, normal heart sounds. Absent: systolic murmur, diastolic murmur, rubs, gallop, clicks GI/Abdominal exam: Present: soft, normal bowel sounds. Absent: distended, tenderness, guarding, rebound, rigid Extremities exam: Present: normal inspection, full ROM, normal capillary refill. Absent: tenderness, pedal edema, joint swelling, calf tenderness Back exam: Present: normal inspection Neurological exam: Present: alert, CN II-XII intact, other (confused speech. No dysarthria or aphasia) Psychiatric exam: Present: normal affect, normal mood Skin exam: Present: warm, dry, intact, normal color. Absent: rash Course Vital Signs 10/06/19 10/07/19 10/07/19 22:57 01:16 02:41 Temperature 97.9 F 98.1 F Pulse Rate 95 77 80 Respiratory 18 18 18 Rate Blood Pressure 130/77 131/66 106/82 O2 Sat by Pulse 96 97 98 Oximetry 10/07/19 03:28 Temperature Pulse Rate 90 Respiratory 17 Rate Blood Pressure 176/84 O2 Sat by Pulse 96 Oximetry EKG Findings - EKG Comments: EKG Findings:: EKG demonstrates normal sinus rhythm with a ventricular rate of 93. MO interval 158. QRS 86. QTC 445. There is a Q wave in lead 3. Inverted T waves in 1, aVL the 3 through V6. This is due to the patient's previous EKG and the morphology is similar Medical Decision Making - Medical Decision Making Upon arrival the patient is placed in room 2. A thorough history and physical exam was performed. Peripheral IV is established. A 12-lead EKG is performed and the patient. I did recommend laboratory studies and a CT of the patient's brain, abdomen and pelvis. Bedside Accu-Chek demonstrates a blood sugars to be "critical high" I did provide the patient with a 2 L bolus of normal saline. Repeat Accu-Chek continues to demonstrate a "critical high value". Laboratory studies did show a white blood cell count of 11.1. Sodium is 129. I do assume that this is a pseudohyponatremia. Coronary 93, glucose 872, lactic acid 5.1, magnesium 1.6, troponin less than 0.012. Urinalysis shows 4+ glucose, small blood, small leukocyte esterase, 9 white blood cells, rare bacteria. CT of the patient's brain demonstrates cerebral atrophy and chronic small vessel ischemia. CT of the patient's abdomen and pelvis demonstrates hypodense liver lesion which is unchanged compared to old CT. Mild colonic diverticulosis. Discuss his results with the patient and their family member. The patient does have an anion gap metabolic acidosis with an anion gap of 18. There were no ketones in the urine. I started the patient on an insulin drip at 1 mg/kg per hour. She'll also be placed on 100 mL of normal saline per hour. I recommended hospital admission. A call discuss case with Dr. Snell. She is requesting that the patient to receive another 2 L of fluid and therefore I did order this. The patient will continue to have an Accu-Chek. The patient remained in stable condition and is transported to the floor - Lab Data Result diagrams: 10/06/19 23:54 10/07/19 14:15 Lab Results 10/06/19 10/06/19 10/06/19 Range/Units 00:43 23:44 23:54 WBC (3.8-10.6) k/uL RBC (3.80-5.40) m/uL Hgb (11.4-16.0) gm/dL Hct (34.0-46.0) % MCV (80.0-100.0) fL MCH (25.0-35.0) pg MCHC (31.0-37.0) g/dL RDW (11.5-15.5) % Plt Count (150-450) k/uL Neutrophils % % Lymphocytes % % Monocytes % % Eosinophils % % Basophils % % Neutrophils # (1.3-7.7) k/uL Lymphocytes # (1.0-4.8) k/uL Monocytes # (0-1.0) k/uL Eosinophils # (0-0.7) k/uL Basophils # (0-0.2) k/uL Hypochromasia PT (9.0-12.0) sec INR (<1.2) APTT (22.0-30.0) sec Sodium 129 L (137-145) mmol/L Potassium 4.9 (3.5-5.1) mmol/L Chloride 93 L (98-107) mmol/L Carbon Dioxide 18 L (22-30) mmol/L Anion Gap 18 mmol/L BUN 14 (7-17) mg/dL Creatinine 0.94 (0.52-1.04) mg/dL Est GFR (CKD-EPI)AfAm 71 (>60 ml/min/1.73 sqM) Est GFR (CKD-EPI)NonAf 61 (>60 ml/min/1.73 sqM) Glucose 872 H* (74-99) mg/dL Estimated Ave Glu mg/dL Hemoglobin A1c (4.0-6.0) % Lactic Ac Sepsis Rflx Plasma Lactic Acid Fabio (0.7-2.0) mmol/L Calcium 8.6 (8.4-10.2) mg/dL Magnesium 1.6 (1.6-2.3) mg/dL Total Bilirubin 0.7 (0.2-1.3) mg/dL AST 21 (14-36) U/L ALT 17 (9-52) U/L Alkaline Phosphatase 186 H (38-126) U/L Creatine Kinase 60 (30-135) U/L Troponin I (0.000-0.034) ng/mL Total Protein 6.2 L (6.3-8.2) g/dL Albumin 3.2 L (3.5-5.0) g/dL TSH 2.360 (0.465-4.680) mIU/L Urine Color Light Yellow Urine Appearance Clear (Clear) Urine pH 5.5 (5.0-8.0) Ur Specific [place] 1.029 (1.001-1.035) Urine Protein Trace H (Negative) Urine Glucose (UA) 4+ H (Negative) Urine Ketones Negative (Negative) Urine Blood Small H (Negative) Urine Nitrite Negative (Negative) Urine Bilirubin Negative (Negative) Urine Urobilinogen <2.0 (<2.0) mg/dL Ur Leukocyte Esterase Small H (Negative) Urine RBC 4 (0-5) /hpf Urine WBC 9 H (0-5) /hpf Ur Squamous Epith Cells 1 (0-4) /hpf Urine Bacteria Rare H (None) /hpf Urine Mucus Rare H (None) /hpf 10/06/19 10/06/19 10/06/19 Range/Units 23:54 23:54 23:54 WBC 11.1 H (3.8-10.6) k/uL RBC 5.03 (3.80-5.40) m/uL Hgb 13.8 (11.4-16.0) gm/dL Hct 44.7 (34.0-46.0) % MCV 88.7 (80.0-100.0) fL MCH 27.4 (25.0-35.0) pg MCHC 30.9 L (31.0-37.0) g/dL RDW 13.4 (11.5-15.5) % Plt Count 225 (150-450) k/uL Neutrophils % 86 % Lymphocytes % 8 % Monocytes % 4 % Eosinophils % 0 % Basophils % 0 % Neutrophils # 9.5 H (1.3-7.7) k/uL Lymphocytes # 0.9 L (1.0-4.8) k/uL Monocytes # 0.5 (0-1.0) k/uL Eosinophils # 0.1 (0-0.7) k/uL Basophils # 0.0 (0-0.2) k/uL Hypochromasia Slight PT 10.0 (9.0-12.0) sec INR 0.9 (<1.2) APTT 23.6 (22.0-30.0) sec Sodium (137-145) mmol/L Potassium (3.5-5.1) mmol/L Chloride (98-107) mmol/L Carbon Dioxide (22-30) mmol/L Anion Gap mmol/L BUN (7-17) mg/dL Creatinine (0.52-1.04) mg/dL Est GFR (CKD-EPI)AfAm (>60 ml/min/1.73 sqM) Est GFR (CKD-EPI)NonAf (>60 ml/min/1.73 sqM) Glucose (74-99) mg/dL Estimated Ave Glu mg/dL Hemoglobin A1c (4.0-6.0) % Lactic Ac Sepsis Rflx Plasma Lactic Acid Fabio 5.1 H* (0.7-2.0) mmol/L Calcium (8.4-10.2) mg/dL Magnesium (1.6-2.3) mg/dL Total Bilirubin (0.2-1.3) mg/dL AST (14-36) U/L ALT (9-52) U/L Alkaline Phosphatase (38-126) U/L Creatine Kinase (30-135) U/L Troponin I (0.000-0.034) ng/mL Total Protein (6.3-8.2) g/dL Albumin (3.5-5.0) g/dL TSH (0.465-4.680) mIU/L Urine Color Urine Appearance (Clear) Urine pH (5.0-8.0) Ur Specific [place] (1.001-1.035) Urine Protein (Negative) Urine Glucose (UA) (Negative) Urine Ketones (Negative) Urine Blood (Negative) Urine Nitrite (Negative) Urine Bilirubin (Negative) Urine Urobilinogen (<2.0) mg/dL Ur Leukocyte Esterase (Negative) Urine RBC (0-5) /hpf Urine WBC (0-5) /hpf Ur Squamous Epith Cells (0-4) /hpf Urine Bacteria (None) /hpf Urine Mucus (None) /hpf 10/06/19 10/06/19 10/07/19 Range/Units 23:54 23:54 00:18 WBC (3.8-10.6) k/uL RBC (3.80-5.40) m/uL Hgb (11.4-16.0) gm/dL Hct (34.0-46.0) % MCV (80.0-100.0) fL MCH (25.0-35.0) pg MCHC (31.0-37.0) g/dL RDW (11.5-15.5) % Plt Count (150-450) k/uL Neutrophils % % Lymphocytes % % Monocytes % % Eosinophils % % Basophils % % Neutrophils # (1.3-7.7) k/uL Lymphocytes # (1.0-4.8) k/uL Monocytes # (0-1.0) k/uL Eosinophils # (0-0.7) k/uL Basophils # (0-0.2) k/uL Hypochromasia PT (9.0-12.0) sec INR (<1.2) APTT (22.0-30.0) sec Sodium (137-145) mmol/L Potassium (3.5-5.1) mmol/L Chloride (98-107) mmol/L Carbon Dioxide (22-30) mmol/L Anion Gap mmol/L BUN (7-17) mg/dL Creatinine (0.52-1.04) mg/dL Est GFR (CKD-EPI)AfAm (>60 ml/min/1.73 sqM) Est GFR (CKD-EPI)NonAf (>60 ml/min/1.73 sqM) Glucose (74-99) mg/dL Estimated Ave Glu mg/dL 361 Hemoglobin A1c 14.2 H (4.0-6.0) % Lactic Ac Sepsis Rflx Y Plasma Lactic Acid Fabio (0.7-2.0) mmol/L Calcium (8.4-10.2) mg/dL Magnesium (1.6-2.3) mg/dL Total Bilirubin (0.2-1.3) mg/dL AST (14-36) U/L ALT (9-52) U/L Alkaline Phosphatase (38-126) U/L Creatine Kinase (30-135) U/L Troponin I <0.012 (0.000-0.034) ng/mL Total Protein (6.3-8.2) g/dL Albumin (3.5-5.0) g/dL TSH (0.465-4.680) mIU/L Urine Color Urine Appearance (Clear) Urine pH (5.0-8.0) Ur Specific [place] (1.001-1.035) Urine Protein (Negative) Urine Glucose (UA) (Negative) Urine Ketones (Negative) Urine Blood (Negative) Urine Nitrite (Negative) Urine Bilirubin (Negative) Urine Urobilinogen (<2.0) mg/dL Ur Leukocyte Esterase (Negative) Urine RBC (0-5) /hpf Urine WBC (0-5) /hpf Ur Squamous Epith Cells (0-4) /hpf Urine Bacteria (None) /hpf Urine Mucus (None) /hpf Critical Care Time Critical Care Time: Yes Total Critical Care Time: 35 (mins) Disposition Clinical Impression: Diabetes mellitus, Hepatic lesion, Vomiting, Altered mental status, Dehydration, Increased anion gap metabolic acidosis, Hypokalemia, Acute hyperglycemia Disposition: ADMITTED IP TO THIS [facility] Condition: Serious Is patient prescribed a controlled substance at d/c from ED?: No Decision to Admit Reason: Admit from EC Decision Date: 10/07/19 Decision Time: 01:40
[2019-10-07 01:17] LABS: Appearance,Urine Clear (Clear); Bacteria,Urine Rare /hpf; Bilirubin,Urine Negative (Negative); Blood,Urine Small (Negative); Color,Urine Light Yellow; Glucose,Urine (UA) 4+ (Negative); Ketones,Urine Negative (Negative); Leukocyte Esterase,Urine Small (Negative); Mucus,Urine Rare /hpf; Nitrite,Urine Negative (Negative); PH, Urine 5.5 (5.0-8.0); Protein,Urine Trace (Negative); RBC,Urine 4 /hpf (0-5); Specific Gravity,Urine 1.029 (1.001-1.035); Squamous Epithelial Cell,Urine 1 /hpf (0-4); Urobilinogen,Urine <2.0 mg/dL (<2.0)
--- NOTE | 2019-10-07 01:19 | CT ---
EXAMINATION TYPE: CT brain wo con DATE OF EXAM: 10/07/2019 COMPARISON: 04/08/2018 HISTORY: Patient presents with AMS. CT DLP: 1129.4 mGycm Automated exposure control for dose reduction was used. FINDINGS: There is cerebral cortical atrophy. There is moderate patchy hypodensity in the periventricular white matter. There is no mass effect nor midline shift. There is no sign of intracranial hemorrhage. Calv arium is intact. IMPRESSION: CEREBRAL ATROPHY AND CHRONIC SMALL VESSEL ISCHEMIA. NO ACUTE INTRACRANIAL ABNORMALITY. NO SIGNIFICANT CHANGE.
--- NOTE | 2019-10-07 01:32 | CT ---
EXAMINATION TYPE: CT abdomen pelvis w con DATE OF EXAM: 10/07/2019 COMPARISON: 05/18/2017 HISTORY: Patient presents with abdominal pain. CT DLP: 2296.5 mGycm Automated exposure control for dose reduction was used. TECHNIQUE: Helical acquisition of images was performed from the lung bases through the pelvis. CONTRAST: Performed without Oral Contrast and with IV Contrast, patient injected with 100mL mL of Isovue 300. FINDINGS: Multiple axial sections were obtained from the diaphragm to the floor the pelvis with intravenous con trast. The contrast was Isovue 100 mL. Lung bases show coarse interstitial density and subsegmental atelectasis. Heart size is normal. There is no pericardial effusion. There is no pleural effusion. spleen stomach appear normal. Pancreas appears normal. There are clips from cholecystectomy. The sonia e ducts are not dilated. There is a 2.6 cm hypodense area in the posterior right lobe of the liver th at is somewhat obscured by artifact from the patient's size. This is slightly irregular and could be a hemangioma. There is no adrenal mass. Kidneys show satisfactory contrast opacification. There is no hydronephrosi s. There is a 1.8 cm low-density irregular area in the lateral right kidney. Ureters are not dilated. There are small left renal parapelvic cysts. There is no retroperitoneal adenopathy. Bladder distend s smoothly. There is no inguinal hernia. There is no sign of a bowel obstruction. There is no free fl uid in the abdomen. There is no ascites. There is no free air. There are a few sigmoid diverticula. T here is no sign of diverticulitis. There is hysterectomy. Lumbar vertebra have normal alignment. There is degenerative disc space narrow ing in the mid and lower lumbar spine. There is no compression fracture. Sacrum is intact. Bony pelvi s is intact. There is device implanted over the left posterior abdomen. L4-5 shows some bony spinal s tenosis due to facet arthropathy. There is a small lower abdominal anterior wall ventral hernia that contains fat. Unchanged. IMPRESSION: Hypodense liver lesion could be a hemangioma and is unchanged compared to the old CT scan of 02/15/2017 . Mild scarring and subsegmental atelectasis at the lung bases. Minimal colonic diverticulosis. Low density right renal lesion is not a cyst but is stable compared to CT scan of 02/15/2017 and more l ikely benign. L4-5 spinal stenosis.
[2019-10-07] MEDS ORDERED: SODIUM CHLORIDE 0.9% 2,000 ML IV ONE (01:42)
[2019-10-07] MEDS ORDERED: NALOXONE 0.4 MG/ML 1 ML VIAL IV PRN (01:49)
[2019-10-07 01:51] LABS: Glucose,Whole Blood >600 mg/dL (75-99)
[2019-10-07] MEDS: INSULIN REGULAR 100 UNIT in SODIUM CHLORIDE 0.9% 100 ML IV SCH ×2 (02:08→10:02)
[2019-10-07 02:40] LABS: Glucose,Whole Blood >600 mg/dL (75-99)
[2019-10-07] MEDS ORDERED: ONDANSETRON 4 MG/2 ML VIAL IVP PRN (03:29)
[2019-10-07 03:35] LABS: Glucose,Whole Blood >600 mg/dL (75-99)
[2019-10-07] MEDS: SODIUM CHLORIDE 0.9% 1,000 ML IV SCH ×2 (04:00→09:07)
[2019-10-07 04:14] LABS: Glucose,Whole Blood 535 mg/dL (75-99)
[2019-10-07 05:16] LABS: Glucose,Whole Blood 517 mg/dL (75-99)
[2019-10-07 06:15] LABS: Glucose,Whole Blood 289 mg/dL (75-99)
[2019-10-07 06:33] LABS: Potassium 4.9 mmol/L (3.5-5.1)
[2019-10-07 07:10] LABS: Glucose,Whole Blood 267 mg/dL (75-99)
[2019-10-07 08:52] LABS: Glucose,Whole Blood 186 mg/dL (75-99)
[2019-10-07 09:29] LABS: Calcium 8.4 mg/dL (8.4-10.2); Potassium 3.8 mmol/L (3.5-5.1)
[2019-10-07 10:12] LABS: Glucose,Whole Blood 167 mg/dL (75-99)
[2019-10-07 10:37] VITALS: BMI 38.6
[2019-10-07] MEDS ORDERED: NYSTATIN 100,000 UNIT/GM POWD 15 GM TOPICAL PRN (11:02)
[2019-10-07 11:57] LABS: Glucose,Whole Blood 149 mg/dL (75-99)
[2019-10-07] MEDS ORDERED: INSULIN DETEMIR (LEVEMIR) 100 UNIT/ML SYR SQ ONE (12:00)
[2019-10-07] MEDS: INSULIN ASPART (NovoLOG) 100 UNIT/ML VIAL SQ SCH ×2 (12:00→17:18)
[2019-10-07 13:30] LABS: African American GFR (CKD) >90 (>60 ml/min/1.73 sqM); Anion Gap 4 mmol/L; Blood Urea Nitrogen 8 mg/dL (7-17); Carbon Dioxide 20 mmol/L (22-30); Chloride 115 mmol/L (98-107); Glucose 113 mg/dL (74-99); Non-African American GFR(CKD) >90 (>60 ml/min/1.73 sqM); Sodium 139 mmol/L (137-145)
[2019-10-07 13:40] LABS: Potassium 2.3 mmol/L (3.5-5.1)
[2019-10-07 13:41] LABS: Calcium 5.1 mg/dL (8.4-10.2)
[2019-10-07 14:43] LABS: Potassium 3.5 mmol/L (3.5-5.1)
[2019-10-07 15:19] LABS: Ionized Calcium 4.5 mg/dL (4.5-5.3)
--- NOTE | 2019-10-07 15:28 | P.HPIM ---
History of Present Illness H&P Date: 10/07/19 (This document will serve both as H&P and discharge summary) Chief Complaint: Change in mental status and Hyperglycemia This is a 68-year-old female one of Dr. Burnham with a previous medical history significant for coronary artery disease status post PCI and stent p lacement of the LAD back in 2009 with ischemic cardiomyopathy, hypertension and hypertensive perivascular disease with left ventricular hypertrophy, chronic kidney disease stage III, diabetes mellitus type 2, obstructive sleep apnea, CVA, paroxysmal atrial fibrillation Comes in with change in mental status. History is provided by the patient itself. According to the patient she had a lot of work to do and forgot to take her insulin as scheduled. Patient manages her own insulin as per the daughter and had not taken her insulin for the evening. On admission patient's glucose was found to be 845 with change in mental status and an episode of hallucination. Patient also had a nausea and vo miting last night and complained of mild abdominal pain on admission. On evaluation today patient's glucose was 150, mental status has improved to patient's baseline patient is able to answer all the questions appropriately and expressed wishes to go home. On evaluation of vital patient a temp of 97.9 pulse 95 blood pressure 130/77 EKG was sinus rhythm. Labs suggested a WBC of 11.1, sodium 129 chloride 93 BUN 14 creatinine 0.92 glucose of 872 lactic acid 5.1 calcium 8.6. On evaluation today in the room patient is completely asymptomatic denies nausea, vomiting, abdominal pain, lactic acid has improved to 1.3. IV fluids at 100 cc/h insulin drip discontinued and patient initiated on her home insulin dosage and her family advised to cut down on patient's gabapentin and Vesicare until patient is seen by the primary care physician Review of Systems Constitutional: Denies chronic headaches, Denies chronic pain, Denies fatigue, Denies lethargy Eyes: denies blurred vision, denies decreased vision, denies discharge Ears, nose, mouth and throat: Denies ant. neck pain, Denies dental pain, Denies epistaxis, Denies headache, Denies neck lump, Denies nose pain, Denies odynophagia, Denies post-nasal drip Cardiovascular: Denies chest pain, Denies decreased exercise tolerance, Denies dyspnea on exertion Respiratory: Denies cough, Denies dyspnea, Denies home oxygen, Denies pain on inspiration Gastrointestinal: Denies abdominal pain, Denies bloating, Denies BRBPR, Denies change in bowel habits, Denies excessive gas, Denies hematemesis, Denies nausea, Denies vomiting Genitourinary: Denies flank pain, Denies pelvic pain, Denies urinary frequency Musculoskeletal: Reports limitation of motion, Reports low back pain, Denies arm numbness/tingling, Denies leg numbness/tingling, Denies loss of height Neurological: Reports balance difficulties, Reports lack of coordination, Reports weakness, Denies ataxia, Denies syncope Past Medical History Past Medical History: Atrial Fibrillation, Cancer, CVA/TIA, Diabetes Mellitus, Hyperlipidemia, Hypertension Additional Past Medical History / Comment(s): hepatocellular carcinoma, in remission, had one dose of chemo 2014, TIA X4, hiatal hernia, spinal stenosis, degenerative disc disease involving L3 and L4, diabetic peripheral neuropathy, h yperactive bladder, history of septic left knee joint post arthroplasty. RESTLESS LEG, History of Any Multi-Drug Resistant Organisms: MRSA Date of last positivie culture/infection: 2010 MDRO Source:: left knee Past Surgical History: Adenoidectomy, Bariatric Surgery, Cholecystectomy, Heart Catheterization With Stent, Hernia Repair, Hysterectomy, Joint Replacement, Orthopedic Surgery, Tonsillectomy Additional Past Surgical History / Comment(s): lap band placed in 2003, pro lapsed, removed in 2005, neuro stimulator in back, one stent to LAD Left knee arthroscopic surgery, right total knee arthroplasty, left total knee arthroplasty 10/01/2011, repair of quadriceps tendon 08/21/2011, left knee patellar tendon repair 09/24/2011, removal of the hardware of the left total knee arthroplasty with implantation of the antibiotic spacer October 08 2011, total left knee hardware replacement in May 2012. trigger finger, left hand in 2003 with subsequent reversal in 2005. uses a walker or wheelchair Past Anesthesia/Blood Transfusion Reactions: No Reported Reaction Date of Last Stent Placement:: 05/17/2010 Past Psychological History: Anxiety, Depression Smoking Status: Never smoker Past Alcohol Use History: None Reported Past Drug Use History: None Reported - Past Family History Mother Family Medical History: Congestive Heart Failure (CHF) Father Family Medical History: Myocardial Infarction (ND) Medications and Allergies Home Medications Medication Instructions Recorded Confirmed Type Atorvastatin [Lipitor] 40 mg PO HS #30 tablet 04/06/14 10/07/19 Rx amLODIPine [Norvasc] 5 mg PO DAILY #30 tab 04/06/14 10/07/19 Rx Pantoprazole Sodium 40 mg PO DAILY 08/10/14 10/07/19 History Penciclovir 1% Cream [Denavir 1 applic TOPICAL 5XD PRN 08/10/14 06/06/19 History Cream] Solifenacin Succinate [Vesicare] 10 mg PO HS 08/10/14 10/07/19 History Calcium Carbonate [Calcium] 600 mg PO QAM 06/26/15 06/06/19 History Ondansetron [Zofran] 4 mg PO Q8H PRN 03/26/16 10/07/19 History Gabapentin [Neurontin] 600 mg PO HS 04/02/16 10/07/19 History Nystatin [Nystop] 1 applic TOPICAL DAILY PRN 02/14/17 10/07/19 History Bisacodyl [Dulcolax] 5 mg PO QA 05/18/17 06/06/19 History Insulin Glargine,Hum.rec.anlog 35 unit SQ HS 05/18/17 06/06/19 History [Lantus Solostar] Venlafaxine HCl [Effexor] 75 mg PO QAM 05/18/17 10/07/19 History Venlafaxine HCl [Effexor] 150 mg PO HS 05/18/17 10/07/19 History Insulin Aspart [NovoLOG Flexpen] 18 units SQ TID-W/MEALS 04/08/18 06/06/19 History ALPRAZolam [Xanax] 1 mg PO Q6H PRN 09/14/18 06/06/19 History Aspirin [Adult Low Dose Aspirin EC] 81 mg PO DAILY 09/14/18 06/06/19 History fentaNYL 50MCG/HR PATCH [Duragesic 50 mcg TRANSDERM Q72H 06/06/19 10/07/19 History 50MCG/HR] rOPINIRole HCL [Requip] 0.25 mg PO HS 06/06/19 10/07/19 History Insulin Glargine,Hum.rec.anlog 40 unit SQ QA 10/07/19 Rx [Lantus Solostar] Metoprolol Tartrate 25 mg PO BID 10/07/19 10/07/19 History Allergies Allergy/AdvReac Type Severity Reaction Status Date / Time metformin HCl Allergy "kidneys Verified 10/07/19 09:32 [From Glucophage] shut down" Physical Exam Vitals: Vital Signs Temp Pulse Resp BP Pulse Ox 10/07/19 12:00 98.7 F 89 14 137/74 92 L 10/07/19 08:00 99.3 F 94 13 138/72 92 L 10/07/19 04:00 98.1 F 82 11 L 156/87 92 L 10/07/19 03:28 90 17 176/84 96 10/07/19 02:41 80 18 106/82 98 10/07/19 01:16 98.1 F 77 18 131/66 97 10/06/19 22:57 97.9 F 95 18 130/77 96 Intake and Output 10/07/19 10/07/19 10/07/19 06:59 14:59 22:59 Intake Total 452.1 738.625 Output Total 0 Balance 452.1 738.625 Intake: IV 400 700 Sodium Chloride 0.9% 1, 400 700 000 ml @ 100 mls/hr IV . Q10H BRANDY Rx#:[id number] Intake, IV Titration 52.1 38.625 Amount Insulin Regular 100 unit 52.1 38.625 In Sodium Chloride 0.9% 100 ml @ Titrate IV .Q0M BRANDY Rx#:[id number] Output: Urine 0 Other: # Voids 1 Weight 98.883 kg 98.883 kg - Constitutional General appearance: cooperative, obese - EENT Eyes: PERRLA, dentition normal, no ptosis, normal appearance ENT: hearing grossly normal, normal oropharynx, no pharyngeal erythema, no tonsillar swelling - Neck Neck: no lymphadenopathy, normal ROM, no rigidity, no stridor - Respiratory Respiratory: bilateral: CTA, negative: dullness, rales, rhonchi, wheezing - Cardiovascular Rhythm: regular Heart sounds: normal: S1, S2 Abnormal Heart Sounds: no systolic murmur, no diastolic murmur, no rub - Gastrointestinal General gastrointestinal: no distended, no hepatomegaly, normal bowel sounds, no organomegaly, soft, no splenomegaly, no tenderness - Integumentary Integumentary: no calor, no cellulitis, no cyanotic, no decreased turgor, normal - Neurologic Neurologic: CNII-XII intact - Musculoskeletal Musculoskeletal: strength equal bilaterally - Psychiatric Psychiatric: A&O x's 3, appropriate affect Results CBC & Chem 7: 10/06/19 23:54 10/07/19 14:15 Labs: Abnormal Lab Results - Last 24 Hours (Table) 10/06/19 10/06/19 10/06/19 Range/Units 00:43 23:44 23:54 WBC 11.1 H (3.8-10.6) k/uL MCHC 30.9 L (31.0-37.0) g/dL Neutrophils # 9.5 H (1.3-7.7) k/uL Lymphocytes # 0.9 L (1.0-4.8) k/uL Sodium 129 L (137-145) mmol/L Potassium (3.5-5.1) mmol/L Chloride 93 L (98-107) mmol/L Carbon Dioxide 18 L (22-30) mmol/L Glucose 872 H* (74-99) mg/dL POC Glucose (mg/dL) (75-99) mg/dL Plasma Lactic Acid Fabio (0.7-2.0) mmol/L Calcium (8.4-10.2) mg/dL Alkaline Phosphatase 186 H (38-126) U/L Total Protein 6.2 L (6.3-8.2) g/dL Albumin 3.2 L (3.5-5.0) g/dL Urine Protein Trace H (Negative) Urine Glucose (UA) 4+ H (Negative) Urine Blood Small H (Negative) Ur Leukocyte Esterase Small H (Negative) Urine WBC 9 H (0-5) /hpf Urine Bacteria Rare H (None) /hpf Urine Mucus Rare H (None) /hpf 10/06/19 10/07/19 10/07/19 Range/Units 23:54 01:49 02:38 WBC (3.8-10.6) k/uL MCHC (31.0-37.0) g/dL Neutrophils # (1.3-7.7) k/uL Lymphocytes # (1.0-4.8) k/uL Sodium (137-145) mmol/L Potassium (3.5-5.1) mmol/L Chloride (98-107) mmol/L Carbon Dioxide (22-30) mmol/L Glucose (74-99) mg/dL POC Glucose (mg/dL) >600 H >600 H (75-99) mg/dL Plasma Lactic Acid Fabio 5.1 H* (0.7-2.0) mmol/L Calcium (8.4-10.2) mg/dL Alkaline Phosphatase (38-126) U/L Total Protein (6.3-8.2) g/dL Albumin (3.5-5.0) g/dL Urine Protein (Negative) Urine Glucose (UA) (Negative) Urine Blood (Negative) Ur Leukocyte Esterase (Negative) Urine WBC (0-5) /hpf Urine Bacteria (None) /hpf Urine Mucus (None) /hpf 10/07/19 10/07/19 10/07/19 Range/Units 03:23 04:00 04:02 WBC (3.8-10.6) k/uL MCHC (31.0-37.0) g/dL Neutrophils # (1.3-7.7) k/uL Lymphocytes # (1.0-4.8) k/uL Sodium (137-145) mmol/L Potassium (3.5-5.1) mmol/L Chloride (98-107) mmol/L Carbon Dioxide (22-30) mmol/L Glucose (74-99) mg/dL POC Glucose (mg/dL) >600 H 535 H (75-99) mg/dL Plasma Lactic Acid Fabio 4.9 H* (0.7-2.0) mmol/L Calcium (8.4-10.2) mg/dL Alkaline Phosphatase (38-126) U/L Total Protein (6.3-8.2) g/dL Albumin (3.5-5.0) g/dL Urine Protein (Negative) Urine Glucose (UA) (Negative) Urine Blood (Negative) Ur Leukocyte Esterase (Negative) Urine WBC (0-5) /hpf Urine Bacteria (None) /hpf Urine Mucus (None) /hpf 10/07/19 10/07/19 10/07/19 Range/Units 04:08 05:04 06:03 WBC (3.8-10.6) k/uL MCHC (31.0-37.0) g/dL Neutrophils # (1.3-7.7) k/uL Lymphocytes # (1.0-4.8) k/uL Sodium (137-145) mmol/L Potassium (3.5-5.1) mmol/L Chloride (98-107) mmol/L Carbon Dioxide 18 L (22-30) mmol/L Glucose 576 H* (74-99) mg/dL POC Glucose (mg/dL) 517 H 289 H (75-99) mg/dL Plasma Lactic Acid Fabio (0.7-2.0) mmol/L Calcium (8.4-10.2) mg/dL Alkaline Phosphatase (38-126) U/L Total Protein (6.3-8.2) g/dL Albumin (3.5-5.0) g/dL Urine Protein (Negative) Urine Glucose (UA) (Negative) Urine Blood (Negative) Ur Leukocyte Esterase (Negative) Urine WBC (0-5) /hpf Urine Bacteria (None) /hpf Urine Mucus (None) /hpf 10/07/19 10/07/19 10/07/19 Range/Units 06:59 08:21 08:35 WBC (3.8-10.6) k/uL MCHC (31.0-37.0) g/dL Neutrophils # (1.3-7.7) k/uL Lymphocytes # (1.0-4.8) k/uL Sodium (137-145) mmol/L Potassium (3.5-5.1) mmol/L Chloride (98-107) mmol/L Carbon Dioxide (22-30) mmol/L Glucose 156 H (74-99) mg/dL POC Glucose (mg/dL) 267 H (75-99) mg/dL Plasma Lactic Acid Fabio 3.0 H* (0.7-2.0) mmol/L Calcium (8.4-10.2) mg/dL Alkaline Phosphatase (38-126) U/L Total Protein (6.3-8.2) g/dL Albumin (3.5-5.0) g/dL Urine Protein (Negative) Urine Glucose (UA) (Negative) Urine Blood (Negative) Ur Leukocyte Esterase (Negative) Urine WBC (0-5) /hpf Urine Bacteria (None) /hpf Urine Mucus (None) /hpf 10/07/19 10/07/19 10/07/19 Range/Units 08:41 10:01 11:45 WBC (3.8-10.6) k/uL MCHC (31.0-37.0) g/dL Neutrophils # (1.3-7.7) k/uL Lymphocytes # (1.0-4.8) k/uL Sodium (137-145) mmol/L Potassium (3.5-5.1) mmol/L Chloride (98-107) mmol/L Carbon Dioxide (22-30) mmol/L Glucose (74-99) mg/dL POC Glucose (mg/dL) 186 H 167 H 149 H (75-99) mg/dL Plasma Lactic Acid Fabio (0.7-2.0) mmol/L Calcium (8.4-10.2) mg/dL Alkaline Phosphatase (38-126) U/L Total Protein (6.3-8.2) g/dL Albumin (3.5-5.0) g/dL Urine Protein (Negative) Urine Glucose (UA) (Negative) Urine Blood (Negative) Ur Leukocyte Esterase (Negative) Urine WBC (0-5) /hpf Urine Bacteria (None) /hpf Urine Mucus (None) /hpf 10/07/19 Range/Units 12:30 WBC (3.8-10.6) k/uL MCHC (31.0-37.0) g/dL Neutrophils # (1.3-7.7) k/uL Lymphocytes # (1.0-4.8) k/uL Sodium (137-145) mmol/L Potassium 2.3 L* (3.5-5.1) mmol/L Chloride 115 H (98-107) mmol/L Carbon Dioxide 20 L (22-30) mmol/L Glucose 113 H (74-99) mg/dL POC Glucose (mg/dL) (75-99) mg/dL Plasma Lactic Acid Fabio (0.7-2.0) mmol/L Calcium 5.1 L* (8.4-10.2) mg/dL Alkaline Phosphatase (38-126) U/L Total Protein (6.3-8.2) g/dL Albumin (3.5-5.0) g/dL Urine Protein (Negative) Urine Glucose (UA) (Negative) Urine Blood (Negative) Ur Leukocyte Esterase (Negative) Urine WBC (0-5) /hpf Urine Bacteria (None) /hpf Urine Mucus (None) /hpf Thrombosis Risk Factor Assmnt - DVT/VTE Prophylaxis DVT/VTE Prophylaxis: Pharmacologic Prophylaxis ordered, Mechanical Prophylaxis ordered - Choose All That Apply Any of the Below Risk Factors Present?: Yes Each Factor Represents 1 point: Obesity (BMI >25) Other Risk Factors: Yes Each Risk Factor Represents 2 Points: Age 61-74 years Other congenital or acquired thrombophilia - If yes, enter type in comment: No Thrombosis Risk Factor Assessment Total Risk Factor Score: 3 Thrombosis Risk Factor Assessment Level: Moderate Risk Assessment and Plan Plan: 1. Hyperglycemia due to missing of insulin dosage. Blood sugar controlled on insulin drip switched to Lantus home dose with sliding scale 2. Hypertension and hypertensive cardiovascular disease. continue norvasc and metoprolol 3. Paroxysmal atrial fibrillation currently in sinus rhythm. continue metoprolol 4. Liver cancer. Under the care of hematology oncology at [facility]. 5. Hyperlipidemia. atorvastatin 40 m gpo daily 6. COPD not in exacerbation. 7. History of CAD status post myocardial infarction and prior PCI of the LAD. continue aspirin and metoprolol and lipitor 8. Recurrent depression. 9. Overactive bladder. 10. Altered emntal status [facility]estino [facility] director emergency services hyperglycemia and dehydration, resolved , CT head was neg Discharge plan: Home with home care
[2019-10-07] MEDS ORDERED: POTASSIUM CHLORIDE ER 20 MEQ TAB.ER PO STA ×2 (15:54→17:15)
[2019-10-07 17:16] LABS: Glucose,Whole Blood 203 mg/dL (75-99)
[2019-10-07 17:23] VITALS: BP 148/68; PULSE 75; RESP 15; TEMP 98.3
[2019-10-07] MEDS ORDERED: INSULIN DETEMIR (LEVEMIR) 100 UNIT/ML SYR SQ SCH (21:00)
[2019-10-07] MEDS ORDERED: METOPROLOL TARTRATE 25 MG TAB PO SCH (21:00)
[2019-10-07] MEDS ORDERED: VENLAFAXINE HCL 75 MG TAB PO SCH (21:00)
[2019-10-07] MEDS ORDERED: ATORVASTATIN 40 MG TAB PO SCH (21:00)
[2019-10-08] MEDS ORDERED: INSULIN DETEMIR (LEVEMIR) 100 UNIT/ML SYR SQ SCH (07:00)
[2019-10-08] MEDS ORDERED: PANTOPRAZOLE 40 MG TABLET PO SCH (07:30)
[2019-10-08] MEDS ORDERED: amLODIPine 5 MG TAB PO SCH (09:00)
[2019-10-08] MEDS ORDERED: CALCIUM CARBONATE 500 MG CHEWABLE PO SCH (09:00)
[2019-10-08] MEDS ORDERED: BISACODYL 5 MG TABLET.DR PO SCH (09:00)
[2019-10-08] MEDS ORDERED: ASPIRIN 81 MG PO SCH (09:00)
[2019-10-08] MEDS ORDERED: VENLAFAXINE HCL 75 MG TAB PO SCH (09:00)
[2019-10-08 11:25] LABS: Hemoglobin A1C 14.2 % (4.0-6.0)
== END 2019-10-07 19:10 | disposition home health service (06) | DRG 638 ==
LOC: EC 22:50 → 2SICU 10-07 01:49
PROVIDERS: ADMIT Internal Medicine; ATTEND Internal Medicine
DX: E11.65 Type 2 diabetes mellitus with hyperglycemia (principal); F33.9 Major depressive disorder, recurrent, unspecified; E87.2 Acidosis; I48.0 Paroxysmal atrial fibrillation; E86.0 Dehydration; E11.42 Type 2 diabetes mellitus with diabetic polyneuropathy; E11.22 Type 2 diabetes mellitus with diabetic chronic kidney disease; E78.5 Hyperlipidemia, unspecified; G47.33 Obstructive sleep apnea (adult) (pediatric); J44.9 Chronic obstructive pulmonary disease, unspecified; I25.5 Ischemic cardiomyopathy; I13.10 Hypertensive heart and chronic kidney disease without heart failure, with stage 1 through stage 4 chronic kidney disease, or unspecified chronic kidney disease; N18.3 Chronic kidney disease, stage 3 (moderate); T38.3X6A Underdosing of insulin and oral hypoglycemic [antidiabetic] drugs, initial encounter; Z91.138 Patient's unintentional underdosing of medication regimen for other reason; E87.6 Hypokalemia; M51.36 Other intervertebral disc degeneration, lumbar region; M48.061 Spinal stenosis, lumbar region without neurogenic claudication; G25.81 Restless legs syndrome; I25.10 Atherosclerotic heart disease of native coronary artery without angina pectoris; N32.81 Overactive bladder; K44.9 Diaphragmatic hernia without obstruction or gangrene; K57.30 Diverticulosis of large intestine without perforation or abscess without bleeding; F41.9 Anxiety disorder, unspecified; I25.2 Old myocardial infarction; E66.9 Obesity, unspecified; Z68.38 Body mass index [BMI] 38.0-38.9, adult; Z71.3 Dietary counseling and surveillance; Y63.6 Underdosing and nonadministration of necessary drug, medicament or biological substance; Z79.4 Long term (current) use of insulin; Z79.82 Long term (current) use of aspirin; Z79.899 Other long term (current) drug therapy; Z95.5 Presence of coronary angioplasty implant and graft; Z85.05 Personal history of malignant neoplasm of liver; Z86.14 Personal history of Methicillin resistant Staphylococcus aureus infection; Z90.710 Acquired absence of both cervix and uterus; Z86.73 Personal history of transient ischemic attack (TIA), and cerebral infarction without residual deficits; Z96.653 Presence of artificial knee joint, bilateral; Z90.49 Acquired absence of other specified parts of digestive tract; Z88.8 Allergy status to other drugs, medicaments and biological substances; Y92.009 Unspecified place in unspecified non-institutional (private) residence as the place of occurrence of the external cause; Z82.49 Family history of ischemic heart disease and other diseases of the circulatory system
CPT/HCPCS: 36415; 70450; 74177; 80048; 80053; 81001; 82330; 82550; 83036; 83605; 83735; 84132; 84443; 84484; 85025; 85610; 85730; 93005; 96361; 96374; 99285

== ENCOUNTER 2019-10-28 18:04 | Inpatient (IN) | payer MEDICARE, OTHER ==
[2019-10-28] MEDS ORDERED: ONDANSETRON 4 MG/2 ML VIAL IVP STA (18:41)
[2019-10-28] MEDS ORDERED: MORPHINE SULFATE 4 MG/ML SYRINGE IVP STA (18:41)
[2019-10-28] MEDS ORDERED: SODIUM CHLORIDE 0.9% 1,000 ML IV STA (18:41)
--- NOTE | 2019-10-28 19:04 | ED ---
General Adult HPI - General Chief complaint: Fall Stated complaint: Multiple falls, sugar issues Time Seen by Provider: 10/28/19 18:11 Source: patient Mode of arrival: ambulatory Limitations: no limitations - History of Present Illness Initial comments: 69-year-old female patient presents to the emergency department today for evaluation of multiple falls. Daughter is present and states that she has had 5 falls over the last 4 days. States this is unusual for her. Patient is unsure why she is falling. Patient has pain to the left hip and left ankle. She is also reporting pain to her sternum. She is unsure if she is hit her head during her falls. States she does have intermittent headaches. Daughter is reporting some confusion. Denies any numbness, tingling, weakness to her extremities. Denies blurred or double vision. Denies any nausea or vomiting. Daughter reports she has chronic abdominal pain and a history of liver cancer. She also has diabetes and daughter states her sugars have been out of control. Today her sugar got up to 430. She denies any hematuria, dysuria, urinary frequency, urinary urgency. Patient denies any recent rash, fever, chills, shortness breath, chest pain, abdominal pain, diarrhea, constipation, back pain, or any other complaints. - Related Data Home Medications Medication Instructions Recorded Confirmed Pantoprazole Sodium 40 mg PO DAILY 08/10/14 10/07/19 Penciclovir 1% Cream [Denavir 1 applic TOPICAL 5XD PRN 08/10/14 10/07/19 Cream] Solifenacin Succinate [Vesicare] 10 mg PO HS 08/10/14 10/07/19 Calcium Carbonate [Calcium] 600 mg PO PRN 06/26/15 06/06/19 Ondansetron [Zofran] 4 mg PO Q8H PRN 03/26/16 10/07/19 Gabapentin [Neurontin] 600 mg PO HS 04/02/16 10/07/19 Nystatin [Nystop] 1 applic TOPICAL DAILY PRN 02/14/17 10/07/19 Bisacodyl [Dulcolax] 5 mg PO QAM 05/18/17 10/07/19 Venlafaxine HCl [Effexor] 75 mg PO QAM 05/18/17 10/07/19 Venlafaxine HCl [Effexor] 150 mg PO HS 05/18/17 10/07/19 Insulin Aspart [NovoLOG Flexpen] 18 units SQ TID-W/MEALS 04/08/18 10/07/19 Aspirin [Adult Low Dose Aspirin EC] 81 mg PO DAILY 09/14/18 10/07/19 fentaNYL 50MCG/HR PATCH [Duragesic 50 mcg TRANSDERM Q72H 06/06/19 10/07/19 50MCG/HR] rOPINIRole HCL [Requip] 0.25 mg PO HS 06/06/19 10/07/19 Metoprolol Tartrate 25 mg PO BID 10/07/19 10/07/19 Previous Rx's Medication Instructions Recorded Atorvastatin [Lipitor] 40 mg PO HS #30 tablet 04/06/14 amLODIPine [Norvasc] 5 mg PO DAILY #30 tab 04/06/14 Insulin Glargine,Hum.rec.anlog 30 unit SQ HS #100 ml 10/07/19 [Lantus Solostar] Insulin Glargine,Hum.rec.anlog 45 unit SQ DAILY #100 ml 10/07/19 [Lantus Solostar] Allergies Allergy/AdvReac Type Severity Reaction Status Date / Time metformin HCl Allergy "kidneys Verified 10/28/19 21:52 [From Glucophage] shut down" Review of Systems ROS Statement: Those systems with pertinent positive or pertinent negative responses have been documented in the HPI. ROS Other: All systems not noted in ROS Statement are negative. Past Medical History Past Medical History: Atrial Fibrillation, Cancer, CVA/TIA, Diabetes Mellitus, Hyperlipidemia, Hypertension Additional Past Medical History / Comment(s): hepatocellular carcinoma, in remission, had one dose of chemo 2014, TIA X4, hiatal hernia, spinal stenosis, degenerative disc disease involving L3 and L4, diabetic peripheral neuropathy, hyperactive bladder, history of septic left knee joint post arthroplasty. RESTLESS LEG, History of Any Multi-Drug Resistant Organisms: MRSA Date of last positivie culture/infection: 2010 MDRO Source:: left knee Past Surgical History: Adenoidectomy, Bariatric Surgery, Cholecystectomy, Heart Catheterization With Stent, Hernia Repair, Hysterectomy, Joint Replacement, Orthopedic Surgery, Tonsillectomy Additional Past Surgical History / Comment(s): lap band placed in 2003, prolapsed, removed in 2005, neuro stimulator in back, one stent to LAD Left knee arthroscopic surgery, right total knee arthroplasty, left total knee arthroplasty 10/01/2011, repair of quadriceps tendon 08/21/2011, left knee patellar tendon repair 09/24/2011, removal of the hardware of the left total knee arthroplasty with implantation of the antibiotic spacer October 08 2011, total left knee hardware replacement in May 2012. trigger finger, left hand in 2003 with subsequent reversal in 2005. uses a walker or wheelchair Past Anesthesia/Blood Transfusion Reactions: No Reported Reaction Date of Last Stent Placement:: 05/17/2010 Past Psychological History: Anxiety, Depression Smoking Status: Never smoker Past Alcohol Use History: None Reported Past Drug Use History: None Reported - Past Family History Mother Family Medical History: Congestive Heart Failure (CHF) Father Family Medical History: Myocardial Infarction ([place]) General Exam Limitations: no limitations General appearance: alert, in no apparent distress, other (this is a well- developed, well-nourished, debilitated patient in no acute distress) Eye exam: Present: normal appearance, PERRL, EOMI. Absent: scleral icterus, conjunctival injection, periorbital swelling ENT exam: Present: normal exam, normal oropharynx, mucous membranes moist Respiratory exam: Present: normal lung sounds bilaterally. Absent: respiratory distress, wheezes, rales, rhonchi, stridor Cardiovascular Exam: Present: regular rate, normal rhythm, normal heart sounds. Absent: systolic murmur, diastolic murmur, rubs, gallop, clicks GI/Abdominal exam: Present: soft, normal bowel sounds. Absent: distended, tenderness, guarding, rebound, rigid Extremities exam: Present: normal inspection, full ROM, normal capillary refill, other (tenderness over the left ankle, no soft tissue swelling noted. Skin is otherwise pink, warm, dry. Cap refills less than 3 seconds. Pedal and posttibial pulses are 2+ equal bilaterally.). Absent: tenderness, pedal edema, joint swelling, calf tenderness Back exam: Present: normal inspection. Absent: vertebral tenderness Neurological exam: Present: alert, oriented X3, CN II-XII intact Expanded Speech: Present: fluid speech Cranial nerves: EOM's Intact: Normal, Tongue Deviation: Normal Motor strength exam: RUE: 5, LUE: 5, RLE: 5, LLE: 5 Psychiatric exam: Present: normal affect, normal mood Skin exam: Present: warm, dry, intact, normal color. Absent: rash Course Vital Signs 12/19/19 12/19/19 12/19/19 18:06 18:24 19:39 Temperature 97.4 F L Pulse Rate 75 58 L 72 Respiratory 20 18 18 Rate Blood Pressure 142/62 137/84 98/50 O2 Sat by Pulse 96 96 96 Oximetry 10/28/19 10/28/19 19:46 21:20 Temperature Pulse Rate 60 Respiratory 18 Rate Blood Pressure 110/50 126/89 O2 Sat by Pulse 98 Oximetry EKG Findings - EKG Comments: EKG Findings:: EKG obtained at 1853 shows normal sinus rhythm with sinus arrhythmia. Ventricular rate is 63, MD interval 172, QRS duration 84, QT 436, QTc 446. No evidence of ST elevation or depression. Medical Decision Making - Medical Decision Making 69-year-old female patient presents to the emergency department today for evaluation of multiple falls and confusion. Physical examination does reveal some left ankle tenderness and left hip tenderness. Abdomen is soft and nontender. No CVA tenderness. Labs reviewed and did reveal decrease in hemoglobin to 9.9, elevated white blood cell count 18,000, elevated lactic acid 2.6. Blood sugar is elevated at 362. Blood cultures have been sent.urinalysis shows evidence of infection, this has been sent for culture. CT brain and C- spine was obtained and was negative. X-rays of the left hip and pelvis, of the left ankle were negative for any acute abnormalities. Patient will be given ankle stirrup splint for ankle sprain. She'll be admitted to the hospital for IV antibiotics. Denies 10 powder free some infection to the lower abdominal fold and the groin. Occult blood was negative. She'll be admitted to Dr. Maza covering for Dr. Burnham. Patient and family were updated regarding results and plan. They are agreeable. - Lab Data Result diagrams: 10/28/19 19:05 10/28/19 19:05 Lab Results 10/28/19 10/28/19 10/28/19 Range/Units 19:05 19:05 19:05 WBC 18.2 H (3.8-10.6) k/uL RBC 3.76 L (3.80-5.40) m/uL Hgb 9.9 L D (11.4-16.0) gm/dL Hct 32.0 L (34.0-46.0) % MCV 85.2 (80.0-100.0) fL MCH 26.3 (25.0-35.0) pg MCHC 30.9 L (31.0-37.0) g/dL RDW 13.7 (11.5-15.5) % Plt Count 747 H D (150-450) k/uL Neutrophils % (Manual) 76 % Lymphocytes % (Manual) 17 % Monocytes % (Manual) 5 % Eosinophils % (Manual) 2 % Neutrophils # (Manual) 13.83 H (1.3-7.7) k/uL Lymphocytes # (Manual) 3.09 (1.0-4.8) k/uL Monocytes # (Manual) 0.91 (0-1.0) k/uL Eosinophils # (Manual) 0.36 (0-0.7) k/uL Nucleated RBCs 0 (0-0) /100 WBC Manual Slide Review Performed Hypochromasia Marked PT (9.0-12.0) sec INR (<1.2) APTT (22.0-30.0) sec Sodium 131 L (137-145) mmol/L Potassium 5.7 H (3.5-5.1) mmol/L Chloride 95 L (98-107) mmol/L Carbon Dioxide 28 (22-30) mmol/L Anion Gap 8 mmol/L BUN 16 (7-17) mg/dL Creatinine 0.94 (0.52-1.04) mg/dL Est GFR (CKD-EPI)AfAm 71 (>60 ml/min/1.73 sqM) Est GFR (CKD-EPI)NonAf 61 (>60 ml/min/1.73 sqM) Glucose 362 H (74-99) mg/dL Plasma Lactic Acid Fabio 2.7 H* (0.7-2.0) mmol/L Calcium 8.8 (8.4-10.2) mg/dL Magnesium 1.8 (1.6-2.3) mg/dL Total Bilirubin 0.7 (0.2-1.3) mg/dL AST 29 (14-36) U/L ALT 16 (4-34) U/L Alkaline Phosphatase 200 H (38-126) U/L Troponin I (0.000-0.034) ng/mL Total Protein 6.3 (6.3-8.2) g/dL Albumin 2.6 L (3.5-5.0) g/dL Urine Color Urine Appearance (Clear) Urine pH (5.0-8.0) Ur Specific Friendship (1.001-1.035) Urine Protein (Negative) Urine Glucose (UA) (Negative) Urine Ketones (Negative) Urine Blood (Negative) Urine Nitrite (Negative) Urine Bilirubin (Negative) Urine Urobilinogen (<2.0) mg/dL Ur Leukocyte Esterase (Negative) Urine RBC (0-5) /hpf Urine WBC (0-5) /hpf Urine WBC Clumps (None) /hpf Ur Squamous Epith Cells (0-4) /hpf Urine Bacteria (None) /hpf Hyaline Casts (0-2) /lpf Urine Mucus (None) /hpf Stool Occult Blood (Negative) 10/28/19 10/28/19 10/28/19 Range/Units 19:05 19:05 20:06 WBC (3.8-10.6) k/uL RBC (3.80-5.40) m/uL Hgb (11.4-16.0) gm/dL Hct (34.0-46.0) % MCV (80.0-100.0) fL MCH (25.0-35.0) pg MCHC (31.0-37.0) g/dL RDW (11.5-15.5) % Plt Count (150-450) k/uL Neutrophils % (Manual) % Lymphocytes % (Manual) % Monocytes % (Manual) % Eosinophils % (Manual) % Neutrophils # (Manual) (1.3-7.7) k/uL Lymphocytes # (Manual) (1.0-4.8) k/uL Monocytes # (Manual) (0-1.0) k/uL Eosinophils # (Manual) (0-0.7) k/uL Nucleated RBCs (0-0) /100 WBC Manual Slide Review Hypochromasia PT 10.3 (9.0-12.0) sec INR 1.0 (<1.2) APTT 25.0 (22.0-30.0) sec Sodium (137-145) mmol/L Potassium (3.5-5.1) mmol/L Chloride (98-107) mmol/L Carbon Dioxide (22-30) mmol/L Anion Gap mmol/L BUN (7-17) mg/dL Creatinine (0.52-1.04) mg/dL Est GFR (CKD-EPI)AfAm (>60 ml/min/1.73 sqM) Est GFR (CKD-EPI)NonAf (>60 ml/min/1.73 sqM) Glucose (74-99) mg/dL Plasma Lactic Acid Fabio (0.7-2.0) mmol/L Calcium (8.4-10.2) mg/dL Magnesium (1.6-2.3) mg/dL Total Bilirubin (0.2-1.3) mg/dL AST (14-36) U/L ALT (4-34) U/L Alkaline Phosphatase (38-126) U/L Troponin I <0.012 (0.000-0.034) ng/mL Total Protein (6.3-8.2) g/dL Albumin (3.5-5.0) g/dL Urine Color Yellow Urine Appearance Turbid H (Clear) Urine pH 6.0 (5.0-8.0) Ur Specific [place] 1.026 (1.001-1.035) Urine Protein 2+ H (Negative) Urine Glucose (UA) 4+ H (Negative) Urine Ketones Negative (Negative) Urine Blood Moderate H (Negative) Urine Nitrite Negative (Negative) Urine Bilirubin Negative (Negative) Urine Urobilinogen 3.0 (<2.0) mg/dL Ur Leukocyte Esterase Large H (Negative) Urine RBC 82 H (0-5) /hpf Urine WBC >182 H (0-5) /hpf Urine WBC Clumps Many H (None) /hpf Ur Squamous Epith Cells 2 (0-4) /hpf Urine Bacteria Moderate H (None) /hpf Hyaline Casts 27 H (0-2) /lpf Urine Mucus Many H (None) /hpf Stool Occult Blood (Negative) 10/28/19 Range/Units 20:43 WBC (3.8-10.6) k/uL RBC (3.80-5.40) m/uL Hgb (11.4-16.0) gm/dL Hct (34.0-46.0) % MCV (80.0-100.0) fL MCH (25.0-35.0) pg MCHC (31.0-37.0) g/dL RDW (11.5-15.5) % Plt Count (150-450) k/uL Neutrophils % (Manual) % Lymphocytes % (Manual) % Monocytes % (Manual) % Eosinophils % (Manual) % Neutrophils # (Manual) (1.3-7.7) k/uL Lymphocytes # (Manual) (1.0-4.8) k/uL Monocytes # (Manual) (0-1.0) k/uL Eosinophils # (Manual) (0-0.7) k/uL Nucleated RBCs (0-0) /100 WBC Manual Slide Review Hypochromasia PT (9.0-12.0) sec INR (<1.2) APTT (22.0-30.0) sec Sodium (137-145) mmol/L Potassium (3.5-5.1) mmol/L Chloride (98-107) mmol/L Carbon Dioxide (22-30) mmol/L Anion Gap mmol/L BUN (7-17) mg/dL Creatinine (0.52-1.04) mg/dL Est GFR (CKD-EPI)AfAm (>60 ml/min/1.73 sqM) Est GFR (CKD-EPI)NonAf (>60 ml/min/1.73 sqM) Glucose (74-99) mg/dL Plasma Lactic Acid Fabio (0.7-2.0) mmol/L Calcium (8.4-10.2) mg/dL Magnesium (1.6-2.3) mg/dL Total Bilirubin (0.2-1.3) mg/dL AST (14-36) U/L ALT (4-34) U/L Alkaline Phosphatase (38-126) U/L Troponin I (0.000-0.034) ng/mL Total Protein (6.3-8.2) g/dL Albumin (3.5-5.0) g/dL Urine Color Urine Appearance (Clear) Urine pH (5.0-8.0) Ur Specific [place] (1.001-1.035) Urine Protein (Negative) Urine Glucose (UA) (Negative) Urine Ketones (Negative) Urine Blood (Negative) Urine Nitrite (Negative) Urine Bilirubin (Negative) Urine Urobilinogen (<2.0) mg/dL Ur Leukocyte Esterase (Negative) Urine RBC (0-5) /hpf Urine WBC (0-5) /hpf Urine WBC Clumps (None) /hpf Ur Squamous Epith Cells (0-4) /hpf Urine Bacteria (None) /hpf Hyaline Casts (0-2) /lpf Urine Mucus (None) /hpf Stool Occult Blood Negative (Negative) - Radiology Data Radiology results: report reviewed, image reviewed Disposition Clinical Impression: Urinary tract infection, Frequent falls, Anemia, Cutaneous candidiasis Disposition: ADMITTED IP TO THIS [facility] Condition: Serious Referrals: Shane Burnham MD [Primary Care Provider] - 1-2 days Decision to Admit Reason: Admit from EC Decision Date: 10/28/19 Decision Time: 21:52
[2019-10-28] MEDS ORDERED: HYDROmorphone 1 MG/ML 1 ML SYRINGE IVP STA (19:17)
[2019-10-28 19:29] LABS: Albumin 2.6 g/dL (3.5-5.0); Calcium 8.8 mg/dL (8.4-10.2); Magnesium 1.8 mg/dL (1.6-2.3); Potassium 5.7 mmol/L (3.5-5.1); Total Bilirubin 0.7 mg/dL (0.2-1.3); Total Protein 6.3 g/dL (6.3-8.2)
[2019-10-28 19:32] LABS: Hypochromasia Marked; MCH 26.3 pg (25.0-35.0); MCHC 30.9 g/dL (31.0-37.0); MCV 85.2 fL (80.0-100.0); Mean Platelet Volume 8.1; RBC 3.76 m/uL (3.80-5.40); RDW 13.7 % (11.5-15.5); WBC 18.2 k/uL (3.8-10.6)
[2019-10-28 19:44] LABS: HGB 9.9 gm/dL (11.4-16.0)
[2019-10-28 19:46] LABS: Prothrombin Time 10.3 sec (9.0-12.0)
--- NOTE | 2019-10-28 20:16 | XR ---
EXAMINATION TYPE: XR Hip LT and AP Pelvis DATE OF EXAM: 10/28/2019 COMPARISON: 06/06/2019 HISTORY: Hip pain TECHNIQUE: 4 views FINDINGS: Pelvic ring is intact. Proximal left femur and hip joint are intact. Sacroiliac joints are normal. IMPRESSION: Normal left hip exam. No fracture. No change.
[2019-10-28 20:17] LABS: Eosinophils # (M) 0.36 k/uL (0-0.7); Lymphocytes # (M) 3.09 k/uL (1.0-4.8); Monocytes # (M) 0.91 k/uL (0-1.0); Neutrophils # (M) 13.83 k/uL (1.3-7.7); Neutrophils % (M) 76 %; Nucleated Red Blood Cells 0 /100 WBC (0-0); Total Cells Counted 100
[2019-10-28 20:18] LABS: Platelet Count 747 k/uL (150-450)
--- NOTE | 2019-10-28 20:19 | XR ---
EXAMINATION TYPE: XR chest 2V DATE OF EXAM: 10/28/2019 COMPARISON: 04/08/2018 HISTORY: Weakness TECHNIQUE: 2 views FINDINGS: Heart and mediastinum are normal. Lungs are clear. Diaphragm is normal. There is neural sti mulator in the lower thoracic spine. IMPRESSION: No active cardiopulmonary disease. Normal heart. There is clearing of some atelectasis le ft lung base compared to old exam.
--- NOTE | 2019-10-28 20:20 | XR ---
EXAMINATION TYPE: XR ankle complete LT DATE OF EXAM: 10/28/2019 COMPARISON: NONE HISTORY: Pain. Frequent falls. TECHNIQUE: 3 views FINDINGS: There is an Achilles calcaneal spur. Ankle mortise is anatomic. There is mild soft tissue s welling around the ankle joint. Subtalar joint is intact. IMPRESSION: No acute abnormality of the left ankle. Calcaneal spurring.
[2019-10-28 20:22] LABS: Appearance,Urine Turbid (Clear); Bacteria,Urine Moderate /hpf; Bilirubin,Urine Negative (Negative); Blood,Urine Moderate (Negative); Color,Urine Yellow; Glucose,Urine (UA) 4+ (Negative); Hyaline Casts,Urine 27 /lpf (0-2); Ketones,Urine Negative (Negative); Leukocyte Esterase,Urine Large (Negative); Mucus,Urine Many /hpf; Nitrite,Urine Negative (Negative); Protein,Urine 2+ (Negative); RBC,Urine 82 /hpf (0-5); Specific Gravity,Urine 1.026 (1.001-1.035); Squamous Epithelial Cell,Urine 2 /hpf (0-4); WBC,Urine >182 /hpf (0-5)
--- NOTE | 2019-10-28 20:59 | CT ---
EXAMINATION TYPE: CT brain ashwini wo con DATE OF EXAM: 10/28/2019 COMPARISON: CT brain 04/08/2018 HISTORY: Fall injury Headache. Neck pain CT DLP: 1502.9 mGycm Automated exposure control for dose reduction was used. There is some cerebral cortical atrophy. There is patchy hypodensity in the periventricular white mat ter. There is no mass effect nor midline shift. There is no sign of intracranial hemorrhage. The calv arium is intact. Skull base is intact. There is straightening of the cervical spine and slight kyphotic curvature. There is moderate degener ative disc space narrowing at levels from C4 to C7 with spurring of the endplates. There is hypertrop hic the level facet arthropathy. There is no evidence of cervical spine fracture. IMPRESSION: Spondylotic changes in the lower cervical spine. No fracture. Cerebral atrophy and chronic small vessel ischemia. No acute intracranial abnormality. Brain unchange d compared to old exam.
[2019-10-28] MEDS ORDERED: NALOXONE 0.4 MG/ML 1 ML VIAL IV PRN (21:48)
[2019-10-28] MEDS ORDERED: ONDANSETRON 4 MG/2 ML VIAL IVP PRN (21:48)
[2019-10-28] MEDS ORDERED: ACETAMINOPHEN TAB 325 MG TAB PO PRN (21:48)
[2019-10-28] MEDS: SODIUM CHLORIDE 0.9% 1,000 ML IV SCH (22:45)
[2019-10-29] MEDS: HYDROmorphone 1 MG/ML 1 ML SYRINGE IVP PRN ×2 (02:31→05:06)
[2019-10-29] MEDS: NYSTATIN 100,000 UNIT/GM POWD 15 GM TOPICAL SCH ×4 (04:24→20:50)
[2019-10-29 06:23] LABS: Basophils % (A) 0 %; Eosinophils # (A) 0.4 k/uL (0-0.7); Eosinophils % (A) 3 %; HCT 28.5 % (34.0-46.0); HGB 8.7 gm/dL (11.4-16.0); Hypochromasia Marked; Lymphocytes # (A) 2.1 k/uL (1.0-4.8); Lymphocytes % (A) 14 %; MCH 26.4 pg (25.0-35.0); MCHC 30.6 g/dL (31.0-37.0); MCV 86.3 fL (80.0-100.0); Mean Platelet Volume 7.8; Monocytes # (A) 0.6 k/uL (0-1.0); Monocytes % (A) 4 %; Neutrophils % (A) 79 %; Platelet Count 652 k/uL (150-450); RBC 3.31 m/uL (3.80-5.40); RDW 13.7 % (11.5-15.5); WBC 15.2 k/uL (3.8-10.6)
[2019-10-29 06:30] LABS: Calcium 8.4 mg/dL (8.4-10.2)
[2019-10-29 07:22] LABS: Glucose,Whole Blood 296 mg/dL (75-99)
[2019-10-29] MEDS: INSULIN ASPART (NovoLOG) 100 UNIT/ML VIAL SQ SCH ×5 (08:51→22:00)
[2019-10-29] MEDS: SODIUM CHLORIDE 0.9% 1,000 ML IV SCH ×2 (08:55→18:02)
[2019-10-29 11:42] LABS: Glucose,Whole Blood 218 mg/dL (75-99)
[2019-10-29] MEDS ORDERED: HYDROmorphone 1 MG/ML 1 ML SYRINGE IVP PRN (13:20)
[2019-10-29] MEDS ORDERED: NYSTATIN 100,000 UNIT/GM POWD 15 GM TOPICAL PRN (13:21)
--- NOTE | 2019-10-29 14:32 | XR ---
Left RIBS HISTORY: Left rib pain 5 views of the left ribs Correlation prior chest x-ray 10/28/2019 or graph thoracic cord stimulator is again noted, generator over the left flank. No evident displaced rib fracture. Bone mineralization is maintained. Thoracic s pondylosis noted incidentally. IMPRESSION: No significant abnormality, bone scan may be of benefit.
[2019-10-29] MEDS: amLODIPine 5 MG TAB PO SCH (14:38)
[2019-10-29] MEDS: PANTOPRAZOLE 40 MG TABLET PO SCH (14:38)
[2019-10-29] MEDS: METOPROLOL TARTRATE 25 MG TAB PO SCH ×2 (14:38→20:42)
[2019-10-29] MEDS: BISACODYL 5 MG TABLET.DR PO SCH (14:38)
[2019-10-29 16:38] LABS: Glucose,Whole Blood 275 mg/dL (75-99)
--- NOTE | 2019-10-29 17:50 | P.HPIM ---
History of Present Illness H&P Date: 10/29/19 his is a 68-year-old female one of Dr. Burnham with a previous medical history significant for coronary artery disease status post PCI and stent placement of the LAD back in 2009 with ischemic cardiomyopathy, hypertension and hypertensive perivascular disease with left ventricular hypertrophy, chronic kidney disease stage III, diabetes mellitus type 2, obstructive sleep apnea, CVA, paroxysmal atrial fibrillation last admitted on 10/07 for altered mental status and hyperglycemia which improved overnight. According to the daughter at bedside patient is found to have more falls and has fallen 5 times in the past 3 days. Patient is increasingly weak and tired. She also [id number] on the left side of her chest and left knee and ankle due to fall. Left ankle is in brace. Patient denies head injury but does endorse intermittent headache. There is some in confusion reported by the daughter. Patient denies any numbness weakness all 4 extremities, denies any history of seizures. She does have chronic abdominal pain and has a history of liver cancer for which patient did receive chemotherapy. Patient denied any shortness of breath, nausea, vomiting, hematuria, dysuria, abdominal pain, change in bowel habits.radiation ophthalmitis patient temp of 97.4 pulse 75 blood pressure 142/62labs were positive for a hemoglobin of 9.9 leukocytosis of 18.2 platelets 747 potassium 5.7 sodium 131 and creatinine 0.94 and blood sugar of 362lactic acid was 2.7. Alkaline phosphatase is 200 normal liver enzymes otherwise magnesium 1.8 normal anion gap, UA was drawn the suggested 182 WBCs and hyaline casts urine and bacteria of moderate blooddrop from 13-8.7 in the past month.incentive for UTI. Patient's hemoglobin dropped from 13-8.4 in the past month. head and cervical spine CT, ankle x-ray, chest x-ray, hip and pelvis x- ray and rib x-ray was done that was negative for any acute abnormality.patient initiated on Rocephin 1 g daily.initiated on IV fluids. Iron studies and rolando min B12 vitamin D ordered to rule out iron deficiency anemia.gastroenterology consult for acute anemia of for possible EGD continue Protonix 40 mg by mouth daily nothing by mouth after midnight Review of Systems Constitutional: Denies chills, Denies fever, endorses weakness, endorsesweight loss Eyes: denies decreased vision, denies diplopia, denies discharge, denies pain Ears: deny: decreased hearing Ears, nose, mouth and throat: Denies dental pain, Denies headache, Denies nasal discharge, Denies nose pain Cardiovascular: Denies chest pain, Denies decreased exercise tolerance, Denies edema, Denies high blood pressure, Denies irregular heart beat, Denies palpitati ons, Denies paroxysmal nocturnal dyspnea, Denies rapid heart beat, Denies shortness of breath Respiratory: Denies congestion, Denies cough, Denies cough with sputum, Denies dyspnea, Denies home oxygen, Denies wheezing Gastrointestinal: Denies abdominal pain, Denies change in bowel habits, Denies coffee ground emesis, Denies early satiety, Denies excessive gas, Denies heartburn, Denies hematemesis, Denies hematochezia, Denies loss of appetite, Denies nausea, Denies vomiting Genitourinary: Denies dysuria, Denies flank pain, Denies kidney stones, Denies menorrhagia, Denies urgency, Denies urinary frequency Musculoskeletal:endorses gait dysfunction and balance, endorses limitation of motion, Denies morning stiffness, endorses left chest pain left ankle abdi nendorses frequent falls Integumentary: Denies rash, Denies wounds, Denies brittle nails, Denies change in hair/nails, Denies darkening of skin Neurological: endorses balance difficulties, Denies change in speech, Denies double vision, endorses gait dysfunction, Denies loss of vision, Denies motor disturbance, Denies numbness, Denies paralysis, Denies paresthesias, Denies seizures Psychiatric: Denies anxiety, Denies depression Endocrine: Denies excessive sweating, Denies excessive thirst, Denies high blood sugars, Denies palpitations Hematologic/Lymphatic: Denies easy bruising, Denies lymphadenopathy Past Medical History Past Medical History: Atrial Fibrillation, Cancer, CVA/TIA, Diabetes Mellitus, Hyperlipidemia, Hypertension Additional Past Medical History / Comment(s): Hepatocellular carcinoma (in remission), had one dose of chemo 2014, TIA X4, hiatal hernia, spinal stenosis, degenerative disc disease involving L3 and L4, diabetic peripheral neuropathy, hyperactive bladder, history of septic left knee joint post arthroplasty. restless leg syndrome. History of Any Multi-Drug Resistant Organisms: MRSA Date of last positivie culture/infection: 2010 MDRO Source:: Left knee Past Surgical History: Adenoidectomy, Bariatric Surgery, Cholecystectomy, Heart Catheterization With Stent, Hernia Repair, Hysterectomy, Joint Replacement, Orthopedic Surgery, Tonsillectomy Additional Past Surgical History / Comment(s): Lap band placed in 2004, prolapsed & removed in 2005, neuro stimulator in back, one stent to LAD, left knee arthroscopic surgery, right total knee arthroplasty, left total knee arthroplasty 10/01/2011, repair of quadriceps tendon 08/21/2011, left knee patellar tendon repair 09/24/2011, removal of the hardware of the left total knee arthroplasty with implantation of the antibiotic spacer October 08 2011, total left knee hardware replacement in May 2012,. trigger finger, left hand in 2003 with subsequent reversal in 2005. Uses a walker or wheelchair Past Anesthesia/Blood Transfusion Reactions: No Reported Reaction Date of Last Stent Placement:: 05/17/2010 Past Psychological History: Anxiety, Depression Smoking Status: Never smoker Past Alcohol Use History: None Reported Past Drug Use History: None Reported - Past Family History Mother Family Medical History: Congestive Heart Failure (CHF) Father Family Medical History: Myocardial Infarction (VT) Medications and Allergies Home Medications Medication Instructions Recorded Confirmed Type Atorvastatin [Lipitor] 40 mg PO HS #30 tablet 04/06/14 10/28/19 Rx amLODIPine [Norvasc] 5 mg PO DAILY #30 tab 04/06/14 10/28/19 Rx Pantoprazole Sodium 40 mg PO DAILY 08/10/14 10/28/19 History Penciclovir 1% Cream [Denavir 1 applic TOPICAL 5XD PRN 08/10/14 10/28/19 History Cream] Solifenacin Succinate [Vesicare] 10 mg PO HS 08/10/14 10/28/19 History Calcium Carbonate [Calcium] 600 mg PO DAILY PRN 06/26/15 10/28/19 History Ondansetron [Zofran] 4 mg PO Q8H PRN 03/26/16 10/28/19 History Gabapentin [Neurontin] 600 mg PO HS 04/02/16 10/28/19 History Nystatin [Nystop] 1 applic TOPICAL DAILY PRN 02/14/17 10/28/19 History Bisacodyl [Dulcolax] 5 mg PO QAM 05/18/17 10/28/19 History Venlafaxine HCl [Effexor] 75 mg PO QAM 05/18/17 10/28/19 History Venlafaxine HCl [Effexor] 150 mg PO HS 05/18/17 10/28/19 History Insulin Aspart [NovoLOG Flexpen] 18 units SQ TID-W/MEALS 04/08/18 10/28/19 History Aspirin [Adult Low Dose Aspirin EC] 81 mg PO DAILY 09/14/18 10/28/19 History fentaNYL 50MCG/HR PATCH [Duragesic 50 mcg TRANSDERM Q72H 06/06/19 10/28/19 History 50MCG/HR] rOPINIRole HCL [Requip] 0.25 mg PO HS 06/06/19 10/28/19 History Metoprolol Tartrate 25 mg PO BID 10/07/19 10/28/19 History Gabapentin [Neurontin] 300 mg PO QAM 10/28/19 10/28/19 History Insulin Glargine,Hum.rec.anlog 35 unit SQ QA 10/28/19 10/28/19 History [Lantus Solostar] Insulin Glargine,Hum.rec.anlog 40 unit SQ 10/28/19 10/28/19 History [Lantus Solostar] Meclizine HCl 25 mg PO DAILY PRN 10/28/19 10/28/19 History Allergies Allergy/AdvReac Type Severity Reaction Status Date / Time metformin HCl Allergy "kidneys Verified 10/28/19 21:52 [From Glucophage] shut down" Physical Exam Vitals: Vital Signs Temp Pulse Pulse Resp BP BP Pulse Ox 10/29/19 14:03 98.0 F 76 16 136/76 93 L 10/29/19 04:45 97.9 F 69 20 111/62 92 L 10/29/19 00:56 97.8 F 61 20 135/79 95 10/28/19 23:49 121/89 10/28/19 21:20 60 18 126/89 98 10/28/19 19:46 110/50 10/28/19 19:39 72 18 98/50 96 10/28/19 18:24 58 L 18 137/84 96 10/28/19 18:06 97.4 F L 75 20 142/62 96 Intake and Output 10/29/19 10/29/19 10/29/19 06:59 14:59 22:59 Intake Total 100 Balance 100 Intake: Oral 100 Other: Voiding Method Bedside Commode Diaper Incontinent # Voids 1 Weight 99.79 kg - Constitutional General appearance: cooperative, no acute distress, obese - EENT Eyes: anicteric sclerae, PERRLA, normal appearance ENT: hearing grossly normal - Neck Neck: no lymphadenopathy, normal ROM, no other, no rigidity, no stridor, no thyromegaly - Respiratory Respiratory: bilateral: CTA, negative: diminished, dullness, rales, rhonchi - Cardiovascular Rhythm: regular Heart sounds: normal: S1, S2 Abnormal Heart Sounds: no systolic murmur, no diastolic murmur, no rub, no S3 Gallop - Gastrointestinal General gastrointestinal: normal bowel sounds, soft, tender in the left rib cage - Integumentary Integumentary: no rash - Neurologic Neurologic: CNII-XII intact - Musculoskeletal Musculoskeletal: gait normal, strength equal bilaterallytender in the left ankle, bilateral lower extremity paresthesia - Psychiatric Psychiatric: A&O x's 3, appropriate affect Results CBC & Chem 7: 10/29/19 05:51 10/29/19 05:51 Labs: Abnormal Lab Results - Last 24 Hours (Table) 10/28/19 10/28/19 10/28/19 Range/Units 19:05 19:05 19:05 WBC 18.2 H (3.8-10.6) k/uL RBC 3.76 L (3.80-5.40) m/uL Hgb 9.9 L D (11.4-16.0) gm/dL Hct 32.0 L (34.0-46.0) % MCHC 30.9 L (31.0-37.0) g/dL Plt Count 747 H D (150-450) k/uL Neutrophils # (1.3-7.7) k/uL Neutrophils # (Manual) 13.83 H (1.3-7.7) k/uL Sodium 131 L (137-145) mmol/L Potassium 5.7 H (3.5-5.1) mmol/L Chloride 95 L (98-107) mmol/L Creatinine (0.52-1.04) mg/dL Glucose 362 H (74-99) mg/dL POC Glucose (mg/dL) (75-99) mg/dL Plasma Lactic Acid Fabio 2.7 H* (0.7-2.0) mmol/L Alkaline Phosphatase 200 H (38-126) U/L Albumin 2.6 L (3.5-5.0) g/dL Urine Appearance (Clear) Urine Protein (Negative) Urine Glucose (UA) (Negative) Urine Blood (Negative) Ur Leukocyte Esterase (Negative) Urine RBC (0-5) /hpf Urine WBC (0-5) /hpf Urine WBC Clumps (None) /hpf Urine Bacteria (None) /hpf Hyaline Casts (0-2) /lpf Urine Mucus (None) /hpf 10/28/19 10/29/19 10/29/19 Range/Units 20:06 05:51 05:51 WBC 15.2 H (3.8-10.6) k/uL RBC 3.31 L (3.80-5.40) m/uL Hgb 8.7 L (11.4-16.0) gm/dL Hct 28.5 L (34.0-46.0) % MCHC 30.6 L (31.0-37.0) g/dL Plt Count 652 H (150-450) k/uL Neutrophils # 12.0 H (1.3-7.7) k/uL Neutrophils # (Manual) (1.3-7.7) k/uL Sodium 133 L (137-145) mmol/L Potassium (3.5-5.1) mmol/L Chloride (98-107) mmol/L Creatinine 1.08 H (0.52-1.04) mg/dL Glucose 309 H (74-99) mg/dL POC Glucose (mg/dL) (75-99) mg/dL Plasma Lactic Acid Fabio (0.7-2.0) mmol/L Alkaline Phosphatase (38-126) U/L Albumin (3.5-5.0) g/dL Urine Appearance Turbid H (Clear) Urine Protein 2+ H (Negative) Urine Glucose (UA) 4+ H (Negative) Urine Blood Moderate H (Negative) Ur Leukocyte Esterase Large H (Negative) Urine RBC 82 H (0-5) /hpf Urine WBC >182 H (0-5) /hpf Urine WBC Clumps Many H (None) /hpf Urine Bacteria Moderate H (None) /hpf Hyaline Casts 27 H (0-2) /lpf Urine Mucus Many H (None) /hpf 10/29/19 10/29/19 10/29/19 Range/Units 07:15 11:37 16:36 WBC (3.8-10.6) k/uL RBC (3.80-5.40) m/uL Hgb (11.4-16.0) gm/dL Hct (34.0-46.0) % MCHC (31.0-37.0) g/dL Plt Count (150-450) k/uL Neutrophils # (1.3-7.7) k/uL Neutrophils # (Manual) (1.3-7.7) k/uL Sodium (137-145) mmol/L Potassium (3.5-5.1) mmol/L Chloride (98-107) mmol/L Creatinine (0.52-1.04) mg/dL Glucose (74-99) mg/dL POC Glucose (mg/dL) 296 H 218 H 275 H (75-99) mg/dL Plasma Lactic Acid Fabio (0.7-2.0) mmol/L Alkaline Phosphatase (38-126) U/L Albumin (3.5-5.0) g/dL Urine Appearance (Clear) Urine Protein (Negative) Urine Glucose (UA) (Negative) Urine Blood (Negative) Ur Leukocyte Esterase (Negative) Urine RBC (0-5) /hpf Urine WBC (0-5) /hpf Urine WBC Clumps (None) /hpf Urine Bacteria (None) /hpf Hyaline Casts (0-2) /lpf Urine Mucus (None) /hpf Microbiology - Last 24 Hours (Table) 10/28/19 20:06 Urine Culture - Preliminary Urine,Voided Thrombosis Risk Factor Assmnt - DVT/VTE Prophylaxis DVT/VTE Prophylaxis: Pharmacologic Prophylaxis ordered - Choose All That Apply Any of the Below Risk Factors Present?: Yes Each Factor Represents 1 point: Obesity (BMI >25) Each Risk Factor Represents 2 Points: Age 61-74 years Thrombosis Risk Factor Assessment Total Risk Factor Score: 3 Thrombosis Risk Factor Assessment Level: Moderate Risk Assessment and Plan Plan: 1.Frequent falls, multifactorial likely secondary to generalized weakness , anemia and UTIwith possible overmedication.mild confusion as noted by the family Patient initiated on ceftriaxone 1 g daily continue IV fluids at 100 mL/ hr. fentanyl reduced to 25microgram per hour. Gabapentin reduced to 300 mg daily at bedtime. Hold Vesicare 10 and any sedating medications 2. type 2 diabetes uncontrolled. Patient's home dose is reduced initiated on aspart insulin 10 units 3 times a day and Levemir 32 units at bedtime and 28 units as DD. Diabetic diet to be continued, switched to nothing by mouth after midnight 3 acute iron deficiency anemia, patient has been following heart healthy diet trying to lose weight. Is not eating as much at home. Iron studies ordered fecal occult is negative. Continue Protonix 40 mg daily GI consult placed. Nothing by mouth after midnight for possible EGD tomorrow 4. Metabolic encephalopathy likely secondary to UTI H and is answering questions appropriately but daughter says that patient is slightly on the confu sed side. We will decrease patient's pain medication will start patient on Rocephin 1 g every 24 hours if no improvement in confusion pain medication can be dropped. Since patient is on these pain medications for many years patient can go in withdrawal if removed completely 5. acute onChronic pain. Patient has a thoracic stimulator and had a sprain in her left ankle and left knee. Fentanyl reduced to 25 g from 50. Gabapentin reduced to 300 daily at bedtime. Patient cannot take morphine. Diet ordered 0.5 at every 3 hours as needed for breakthrough pain 6. Hypertension and hypertensive cardiovascular disease. continue norvasc and metoprolol 7. Paroxysmal atrial fibrillation currently in sinus rhythm. continue metoprolol 8. Liver cancer Status post chemotherapy not completed. Under the care of hematology oncology at [facility]. 9.. Hyperlipidemia. atorvastatin 40 m gpo daily 10. COPD not in exacerbation. DuoNeb as needed 11 History of CAD status post myocardial infarction and prior PCI of the LAD. continue aspirin and metoprolol and lipitor 12. Recurrent depression.on Effexor 13. Overactive bladder. hold Vesicare 14. CODE STATUS full code 15 DVT with heparin every 12 16 GI prophylaxis with Protonix 40 daily Disposition patient may need [facility] facility at discharge. We will need 1-2 inpatient nights for stabilization
[2019-10-29 18:04] LABS: Reticulocyte % 2.3 % (0.5-2.0)
[2019-10-29 18:34] LABS: Basophils # (A) 0.1 k/uL (0-0.2); Basophils % (A) 1 %; Eosinophils # (A) 0.4 k/uL (0-0.7); Eosinophils % (A) 2 %; HCT 30.3 % (34.0-46.0); HGB 9.2 gm/dL (11.4-16.0); Hypochromasia Marked; Lymphocytes % (A) 11 %; MCH 26.2 pg (25.0-35.0); MCHC 30.4 g/dL (31.0-37.0); MCV 85.9 fL (80.0-100.0); Mean Platelet Volume 8.1; Monocytes # (A) 0.8 k/uL (0-1.0); Monocytes % (A) 4 %; Neutrophils % (A) 81 %; Platelet Count 660 k/uL (150-450); RBC 3.53 m/uL (3.80-5.40); RDW 13.7 % (11.5-15.5); WBC 18.5 k/uL (3.8-10.6)
[2019-10-29] MEDS: GABAPENTIN 300 MG CAP PO SCH (20:41)
[2019-10-29] MEDS: ATORVASTATIN 40 MG TAB PO SCH (20:42)
[2019-10-29] MEDS: HEPARIN SODIUM,PORCINE 5,000 UNIT/ML 1 ML VIAL SQ SCH (20:42)
[2019-10-29] MEDS: VENLAFAXINE HCL 75 MG TAB PO SCH (20:48)
[2019-10-29 21:48] LABS: Glucose,Whole Blood 184 mg/dL (75-99)
[2019-10-29] MEDS: INSULIN DETEMIR (LEVEMIR) 100 UNIT/ML SYR SQ SCH (22:01)
[2019-10-29 23:23] LABS: Ferritin 234.8 ng/mL (10.0-291.0)
[2019-10-29 23:28] LABS: % Iron Saturation 2.87 (12.00-45.00)
[2019-10-30] MEDS: SODIUM CHLORIDE 0.9% 1,000 ML IV SCH ×2 (05:02→12:20)
[2019-10-30 07:35] LABS: Glucose,Whole Blood 110 mg/dL (75-99)
[2019-10-30] MEDS: INSULIN ASPART (NovoLOG) 100 UNIT/ML VIAL SQ SCH ×7 (07:51→22:04)
[2019-10-30] MEDS: BISACODYL 5 MG TABLET.DR PO SCH (08:04)
[2019-10-30] MEDS: VENLAFAXINE HCL 75 MG TAB PO SCH ×2 (08:04→22:04)
[2019-10-30] MEDS: METOPROLOL TARTRATE 25 MG TAB PO SCH ×2 (08:04→22:03)
[2019-10-30] MEDS: amLODIPine 5 MG TAB PO SCH (08:05)
[2019-10-30] MEDS: PANTOPRAZOLE 40 MG TABLET PO SCH (08:05)
[2019-10-30] MEDS: HEPARIN SODIUM,PORCINE 5,000 UNIT/ML 1 ML VIAL SQ SCH ×2 (08:05→22:04)
[2019-10-30] MEDS: NYSTATIN 100,000 UNIT/GM POWD 15 GM TOPICAL SCH ×3 (08:12→22:07)
[2019-10-30] MEDS: INSULIN DETEMIR (LEVEMIR) 100 UNIT/ML SYR SQ SCH ×2 (08:15→22:06)
[2019-10-30 08:31] LABS: Albumin 2.5 g/dL (3.5-5.0); Calcium 8.8 mg/dL (8.4-10.2); Potassium 4.6 mmol/L (3.5-5.1); Total Bilirubin 0.5 mg/dL (0.2-1.3); Total Protein 6.1 g/dL (6.3-8.2)
[2019-10-30 09:05] LABS: HCT 32.5 % (34.0-46.0); HGB 10.1 gm/dL (11.4-16.0); Hypochromasia Marked; MCH 26.7 pg (25.0-35.0); Mean Platelet Volume 8.2; Platelet Count 729 k/uL (150-450); RBC 3.78 m/uL (3.80-5.40); RDW 13.6 % (11.5-15.5); WBC 21.4 k/uL (3.8-10.6)
[2019-10-30 10:33] LABS: Eosinophils # (M) 0.64 k/uL (0-0.7); Lymphocytes # (M) 3.42 k/uL (1.0-4.8); Monocytes # (M) 1.71 k/uL (0-1.0); Neutrophils # (M) 15.62 k/uL (1.3-7.7); Neutrophils % (M) 73 %; Nucleated Red Blood Cells 0 /100 WBC (0-0); Total Cells Counted 100
[2019-10-30 12:02] LABS: Glucose,Whole Blood 145 mg/dL (75-99)
--- NOTE | 2019-10-30 13:04 | P.PN ---
Subjective Progress Note Date: 10/30/19 Principal diagnosis: weakness patient continued to be modalities stable had episode of agitation during the night and currently seems to be lethargic and sleepy. 2 daughters at the bedside with the main daughter who lives with patient at home who indicated that patient has been more lethargic weak and had frequent falls prior to arrival to the emergency Objective - Vital Signs Vital signs: Vital Signs Temp 98.1 F 10/30/19 07:00 Pulse 69 10/30/19 07:00 Resp 18 10/30/19 07:00 BP 150/82 10/30/19 07:00 Pulse Ox 94 L 10/30/19 07:00 Intake & Output 10/29/19 10/30/19 10/30/19 18:59 06:59 18:59 Other: Voiding Method Bedside Commode Diaper Incontinent # Voids 2 2 1 - Exam Gen.: lethargic Heart: Normal S1-S2 Lungs: Clear to auscultation bilaterally Abdomen: Soft, no tenderness, positive bowel sounds in all 4 quadrant no guarding or rebound Skin: No new rash Psych: Alert and oriented 1 Neuro: No focal deficit - Labs CBC & Chem 7: 10/30/19 07:34 10/30/19 07:34 Labs: Abnormal Lab Results - Last 24 Hours (Table) 10/29/19 10/29/19 10/29/19 Range/Units 16:36 17:44 17:44 WBC 18.5 H (3.8-10.6) k/uL RBC 3.53 L (3.80-5.40) m/uL Hgb 9.2 L (11.4-16.0) gm/dL Hct 30.3 L (34.0-46.0) % MCHC 30.4 L (31.0-37.0) g/dL Plt Count 660 H (150-450) k/uL Neutrophils # 15.0 H (1.3-7.7) k/uL Neutrophils # (Manual) (1.3-7.7) k/uL Monocytes # (Manual) (0-1.0) k/uL Retic Count 2.3 H (0.5-2.0) % Glucose (74-99) mg/dL POC Glucose (mg/dL) 275 H (75-99) mg/dL Iron 6 L (50-170) ug/dL TIBC 209 L (228-460) ug/dL % Saturation 2.87 L (12.00-45.00) Alkaline Phosphatase (38-126) U/L Total Protein (6.3-8.2) g/dL Albumin (3.5-5.0) g/dL Vitamin D 25-Hydroxy 14.4 L (30.0-100.0) ng/mL 10/29/19 10/30/19 10/30/19 Range/Units 21:46 07:32 07:34 WBC 21.4 H (3.8-10.6) k/uL RBC 3.78 L (3.80-5.40) m/uL Hgb 10.1 L (11.4-16.0) gm/dL Hct 32.5 L (34.0-46.0) % MCHC (31.0-37.0) g/dL Plt Count 729 H (150-450) k/uL Neutrophils # (1.3-7.7) k/uL Neutrophils # (Manual) 15.62 H (1.3-7.7) k/uL Monocytes # (Manual) 1.71 H (0-1.0) k/uL Retic Count (0.5-2.0) % Glucose (74-99) mg/dL POC Glucose (mg/dL) 184 H 110 H (75-99) mg/dL Iron (50-170) ug/dL TIBC (228-460) ug/dL % Saturation (12.00-45.00) Alkaline Phosphatase (38-126) U/L Total Protein (6.3-8.2) g/dL Albumin (3.5-5.0) g/dL Vitamin D 25-Hydroxy (30.0-100.0) ng/mL 10/30/19 10/30/19 Range/Units 07:34 12:01 WBC (3.8-10.6) k/uL RBC (3.80-5.40) m/uL Hgb (11.4-16.0) gm/dL Hct (34.0-46.0) % MCHC (31.0-37.0) g/dL Plt Count (150-450) k/uL Neutrophils # (1.3-7.7) k/uL Neutrophils # (Manual) (1.3-7.7) k/uL Monocytes # (Manual) (0-1.0) k/uL Retic Count (0.5-2.0) % Glucose 103 H (74-99) mg/dL POC Glucose (mg/dL) 145 H (75-99) mg/dL Iron (50-170) ug/dL TIBC (228-460) ug/dL % Saturation (12.00-45.00) Alkaline Phosphatase 214 H (38-126) U/L Total Protein 6.1 L (6.3-8.2) g/dL Albumin 2.5 L (3.5-5.0) g/dL Vitamin D 25-Hydroxy (30.0-100.0) ng/mL Microbiology - Last 24 Hours (Table) 10/29/19 05:51 Blood Culture - Preliminary Blood No Growth after 24 hours 10/28/19 20:06 Urine Culture - Preliminary Urine,Voided Gram Neg Bacilli Assessment and Plan Assessment: 1. Acute encephalopathy multifactorial in nature including multiple comorbidities on baseline dementia complicated with urinary tract infection. 2. Acute urinary tract infection. 3. Narcotic dependence including chronic [place] use and fentanyl patch along with pain pump for lower back pain. 4. Dementia and type of Alzheimer. 5. Liver cancer followed by [facility]. 6. Morbid obesity. 7. Frequent falls. 8. Questionable history of atrial fibrillation. 9. Severe debility and deconditioning. Patient was administered Dilaudid during the hospital stay and I discontinued that medication but I would like to continue with fentanyl patch as patient has been on fentanyl patch 4 years and her dose got reduced from 50 down to 25 recen tly and I would like to continue with that dose every 72 hours. Urine culture is revealing gram-negative bacilli and patient currently on Rocephin we will continue intravenously and I discussed with nursing staff that if we do his IV was switched to intramuscular area did family showed some concerns regarding patient's pain deteriorating quickly and necessity for equipment at home to help with lifting as patient has been dependent on most of her ADLs at the time she was able to get herself to bedside commode before that. We'll consult case management and socially responsible investment adviser in preparation for discharge on Friday. Patient currently is lethargic and I would like to monitor her mental status for i mprovement. Encourage oral intake and decrease IV infusion to 50 mL/h at this point. Follow up on culture results. CODE STATUS decided by family to be DO NOT RESUSCITATE at this point
[2019-10-30 17:26] LABS: Glucose,Whole Blood 112 mg/dL (75-99)
[2019-10-30] MEDS ORDERED: LIDOCAINE (PF) 10 MG/ML 2 ML VIAL IM ONE (20:00)
[2019-10-30] MEDS ORDERED: cefTRIAXone 1,000 MG VIAL (IM USE) IM ONE (21:00)
[2019-10-30 21:33] LABS: Glucose,Whole Blood 138 mg/dL (75-99)
[2019-10-30] MEDS: GABAPENTIN 300 MG CAP PO SCH (22:04)
[2019-10-30] MEDS: ATORVASTATIN 40 MG TAB PO SCH (22:04)
[2019-10-31 07:11] LABS: Glucose,Whole Blood 147 mg/dL (75-99)
[2019-10-31] MEDS ORDERED: IV FLUID CONTINUATION 1,000 ML IV ONE (07:31)
[2019-10-31] MEDS ORDERED: LIDOCAINE 1% INJ 10MG/ML (20 ML MDV) ONE (07:31)
[2019-10-31] MEDS ORDERED: PROPOFOL 10 MG/ML 20 ML VIAL IV ONE (07:31)
[2019-10-31 07:32] LABS: Basophils # (A) 0.1 k/uL (0-0.2); Basophils % (A) 0 %; Eosinophils # (A) 0.2 k/uL (0-0.7); Eosinophils % (A) 1 %; HCT 29.6 % (34.0-46.0); HGB 9.1 gm/dL (11.4-16.0); Hypochromasia Marked; Lymphocytes % (A) 13 %; MCH 26.1 pg (25.0-35.0); MCHC 30.9 g/dL (31.0-37.0); MCV 84.5 fL (80.0-100.0); Mean Platelet Volume 7.9; Monocytes # (A) 0.8 k/uL (0-1.0); Monocytes % (A) 5 %; Neutrophils # (A) 12.5 k/uL (1.3-7.7); Neutrophils % (A) 80 %; Platelet Count 649 k/uL (150-450); RDW 13.9 % (11.5-15.5); WBC 15.7 k/uL (3.8-10.6)
[2019-10-31 07:44] LABS: Albumin 2.1 g/dL (3.5-5.0); Calcium 8.3 mg/dL (8.4-10.2); Potassium 4.6 mmol/L (3.5-5.1); Total Bilirubin 0.5 mg/dL (0.2-1.3); Total Protein 5.4 g/dL (6.3-8.2)
--- NOTE | 2019-10-31 08:00 | P.CONS ---
History of Present Illness - Reason for Consult Consult date: 10/30/19 Anemia Requesting physician: Fariba Maza - Chief Complaint Altered mental status - History of Present Illness 69-year-old female with a medical history significant for coronary artery disease, hypertension, chronic kidney disease, diabetes mellitus, SUZANNE, CVA, atrial fibrillation, and history of hepatocellular carcinoma which was treated approximately 3 years ago at [facility] with targeted chemotherapy per the patient's family who presented due to complaints of altered mental status and hyperglycemia. The patient has been having increased falls recently and reporting fatigue and tiredness. Patient and her family deny any signs or symptoms of GI bleeding. Bowel movements are daily to every other day normal in color and consistency. She previously underwent endoscopic evaluation on 09/15/2018 with EGD significant for a hiatal hernia and gastritis and normal colonoscopy. Patient was found to have an iron deficiency anemia on presentation with hemoglobin 9.9 stable on repeat attempt 0.1. Stool tested negative for blood. She does report occasional NSAID use of home and is also on baby aspirin. Review of Systems REVIEW OF SYSTEMS: CONSTITUTIONAL: Denies any fevers, chills, weight change but has reported weakness and fatigue. CARDIOVASCULAR: Denies any chest pain, palpitations high or low blood pressures RESPIRATORY: Denies any shortness of breath, hemoptysis or cough. GENITOURINARY: No dysuria or hematuria. MUSCULOSKELETAL: No focal weakness reported. SKIN: Denies any new rashes or lesions, jaundice or pallor. PSYCHIATRIC: Denies any depression or anxiety. NEUROLOGY: Denies headache, denies any new focal deficits. EARS/NOSE/THROAT: No recent hearing change, congestion, nasal discharge or sore throat. EYES: No pain in eyes, discharge or change in vision. GASTROINTESTINAL: As per HPI. Past Medical History Past Medical History: Atrial Fibrillation, Cancer, CVA/TIA, Diabetes Mellitus, Hyperlipidemia, Hypertension Additional Past Medical History / Comment(s): Hepatocellular carcinoma (in remission), had one dose of chemo 2015, TIA X4, hiatal hernia, spinal stenosis, degenerative disc disease involving L3 and L4, diabetic peripheral neuropathy, hyperactive bladder, history of septic left knee joint post arthroplasty. restless leg syndrome. History of Any Multi-Drug Resistant Organisms: MRSA Year Discovered:: 2010 MDRO Source:: Left knee Past Surgical History: Adenoidectomy, Bariatric Surgery, Cholecystectomy, Heart Catheterization With Stent, Hernia Repair, Hysterectomy, Joint Replacement, Orthopedic Surgery, Tonsillectomy Additional Past Surgical History / Comment(s): Lap band placed in 2004, prolapsed & removed in 2005, neuro stimulator in back, one stent to LAD, left knee arthroscopic surgery, right total knee arthroplasty, left total knee arthroplasty 10/01/2011, repair of quadriceps tendon 08/21/2011, left knee patellar tendon repair 09/24/2011, removal of the hardware of the left total knee arthroplasty with implantation of the antibiotic spacer October 08 2011, total left knee hardware replacement in May 2012,. trigger finger, left hand in 2003 with subsequent reversal in 2005. Uses a walker or wheelchair Past Anesthesia/Blood Transfusion Reactions: No Reported Reaction Date of Last Stent Placement:: 05/17/2010 Past Psychological History: Anxiety, Depression Smoking Status: Never smoker Past Alcohol Use History: None Reported Past Drug Use History: None Reported - Past Family History Mother Family Medical History: Congestive Heart Failure (CHF) Father Family Medical History: Myocardial Infarction ([place]) Medications and Allergies Home Medications Medication Instructions Recorded Confirmed Type Atorvastatin [Lipitor] 40 mg PO HS #30 tablet 04/06/14 10/28/19 Rx amLODIPine [Norvasc] 5 mg PO DAILY #30 tab 04/06/14 10/28/19 Rx Pantoprazole Sodium 40 mg PO DAILY 08/10/14 10/28/19 History Penciclovir 1% Cream [Denavir 1 applic TOPICAL 5XD PRN 08/10/14 10/28/19 History Cream] Solifenacin Succinate [Vesicare] 10 mg PO HS 08/10/14 10/28/19 History Calcium Carbonate [Calcium] 600 mg PO DAILY PRN 06/26/15 10/28/19 History Ondansetron [Zofran] 4 mg PO Q8H PRN 03/26/16 10/28/19 History Gabapentin [Neurontin] 600 mg PO HS 04/02/16 10/28/19 History Nystatin [Nystop] 1 applic TOPICAL DAILY PRN 02/14/17 10/28/19 History Bisacodyl [Dulcolax] 5 mg PO QAM 05/18/17 10/28/19 History Venlafaxine HCl [Effexor] 75 mg PO QAM 05/18/17 10/28/19 History Venlafaxine HCl [Effexor] 150 mg PO HS 05/18/17 10/28/19 History Insulin Aspart [NovoLOG Flexpen] 18 units SQ TID-W/MEALS 04/08/18 10/28/19 History Aspirin [Adult Low Dose Aspirin EC] 81 mg PO DAILY 09/14/18 10/28/19 History fentaNYL 50MCG/HR PATCH [Duragesic 50 mcg TRANSDERM Q72H 06/06/19 10/28/19 History 50MCG/HR] rOPINIRole HCL [Requip] 0.25 mg PO HS 06/06/19 10/28/19 History Metoprolol Tartrate 25 mg PO BID 10/07/19 10/28/19 History Gabapentin [Neurontin] 300 mg PO QAM 10/28/19 10/28/19 History Insulin Glargine,Hum.rec.anlog 35 unit SQ QAM 10/28/19 10/28/19 History [Lantus Solostar] Insulin Glargine,Hum.rec.anlog 40 unit SQ HS 10/28/19 10/28/19 History [Lantus Solostar] Meclizine HCl 25 mg PO DAILY PRN 10/28/19 10/28/19 History Allergies Allergy/AdvReac Type Severity Reaction Status Date / Time metformin HCl Allergy "kidneys Verified 10/28/19 21:52 [From Glucophage] shut down" Physical Exam Vitals: Vital Signs Temp Pulse Resp BP BP Pulse Ox 10/30/19 19:30 97.4 F L 83 22 169/76 94 L 10/30/19 14:17 98.1 F 78 18 161/80 93 L Intake and Output 10/30/19 10/31/19 10/31/19 22:59 06:59 14:59 Other: Voiding Method Bedside Commode Diaper Incontinent # Voids 1 2 On physical examination, patient appears comfortable in no apparent distress. HEAD: Normocephalic, atraumatic. EYES: No scleral icterus. No conjunctival injection. MOUTH: No lesions, tongue midline. NECK: Trachea midline, no gross abnormalities. CHEST: Decreased air entry in all lung parsons. HEART: Irregularly irregular, S1-S2 appreciated. ABDOMEN: Soft, obese, mildly tender to palpation. Bowel sounds are positive. No organomegaly. No guarding or rigidity. EXTREMITIES: No pedal edema. SKIN: No rashes, no jaundice. NEUROLOGIC: Alert and oriented x3. No focal deficits. Results CBC & Chem 7: 10/30/19 07:34 10/30/19 07:34 Labs: Abnormal Lab Results - Last 24 Hours (Table) 10/30/19 10/30/19 10/30/19 Range/Units 07:32 07:34 07:34 WBC 21.4 H (3.8-10.6) k/uL RBC 3.78 L (3.80-5.40) m/uL Hgb 10.1 L (11.4-16.0) gm/dL Hct 32.5 L (34.0-46.0) % Plt Count 729 H (150-450) k/uL Neutrophils # (Manual) 15.62 H (1.3-7.7) k/uL Monocytes # (Manual) 1.71 H (0-1.0) k/uL Glucose 103 H (74-99) mg/dL POC Glucose (mg/dL) 110 H (75-99) mg/dL Alkaline Phosphatase 214 H (38-126) U/L Total Protein 6.1 L (6.3-8.2) g/dL Albumin 2.5 L (3.5-5.0) g/dL 10/30/19 10/30/19 10/30/19 Range/Units 12:01 17:24 21:31 WBC (3.8-10.6) k/uL RBC (3.80-5.40) m/uL Hgb (11.4-16.0) gm/dL Hct (34.0-46.0) % Plt Count (150-450) k/uL Neutrophils # (Manual) (1.3-7.7) k/uL Monocytes # (Manual) (0-1.0) k/uL Glucose (74-99) mg/dL POC Glucose (mg/dL) 145 H 112 H 138 H (75-99) mg/dL Alkaline Phosphatase (38-126) U/L Total Protein (6.3-8.2) g/dL Albumin (3.5-5.0) g/dL 10/31/19 Range/Units 07:06 WBC (3.8-10.6) k/uL RBC (3.80-5.40) m/uL Hgb (11.4-16.0) gm/dL Hct (34.0-46.0) % Plt Count (150-450) k/uL Neutrophils # (Manual) (1.3-7.7) k/uL Monocytes # (Manual) (0-1.0) k/uL Glucose (74-99) mg/dL POC Glucose (mg/dL) 147 H (75-99) mg/dL Alkaline Phosphatase (38-126) U/L Total Protein (6.3-8.2) g/dL Albumin (3.5-5.0) g/dL Microbiology - Last 24 Hours (Table) 10/28/19 20:06 Urine Culture - Final Urine,Voided Escherichia coli 10/29/19 05:51 Blood Culture - Preliminary Blood No Growth after 24 hours Assessment and Plan (1) Normocytic hypochromic anemia Narrative/Plan: 69-year-old female with multiple medical comorbidities who presented to the hospital for multiple complaints including altered mental status and falls. The patient was found to be anemic on presentation hemoglobin 10.1 today from 9.9 previously. She has undergone endoscopic evaluation approximately one year ago with EGD significant for hiatal hernia and gastritis and normal colonoscopy. Stool testing was also negative on presentation. She denies any signs or symptoms of GI bleeding. She does have chronic abdominal pain at baseline. She previously underwent treatment for hepatocellular carcinoma and follows up with [facility]. Anemia is likely multifactorial in the setting of chronic disease, possible nutritional deficiencies, cannot rule out a component of GI bleed or hematologic process is a patient has also been found to have associated leukocytosis and thrombocytosis. However given patient's use of occasional Motrin we'll repeat EGD to rule out upper GI pathology as a source of possible cause of anemia. Current Visit: Yes Status: Acute Code(s): D50.9 - IRON DEFICIENCY ANEMIA, UNSPECIFIED SNOMED Code(s): 67711676 Plan: Supportive care Okay for diet Nothing by mouth after midnight Continue medical management per primary team Iron studies consistent with iron deficiency, will defer replacement to primary team EGD plan for evaluation tomorrow Continue Protonix daily Endoscopic reports from 09/2018 including an EGD and colonoscopy reviewed Thank you for allowing us to participate in the care of the patient, we will continue to follow
[2019-10-31] MEDS: INSULIN ASPART (NovoLOG) 100 UNIT/ML VIAL SQ SCH ×7 (08:05→20:35)
--- NOTE | 2019-10-31 08:06 | P.PCN ---
Date of Procedure: 10/31/19 Description of Procedure: BRIEF HISTORY: 69-year-old female with a medical history significant for coronary artery disease, hypertension, chronic kidney disease, diabetes mellitus, SUZANNE, CVA, atrial fibrillation, and history of hepatocellular carcinoma which was treated approximately 3 years ago at [facility] with targeted chemotherapy per the patient's family who presented due to complaints of altered mental status and hyperglycemia. The patient has been having increased falls recently and reporting fatigue and tiredness. Patient and her family deny any signs or symptoms of GI bleeding. Bowel movements are daily to every other day normal in color and consistency. She previously underwent endoscopic evaluation on 09/15/2018 with EGD significant for a hiatal hernia and gastritis and normal colonoscopy. Patient was found to have an iron deficiency anemia on presen tation with hemoglobin 9.9 stable on repeat attempt 0.1. Stool tested negative for blood. She does report occasional NSAID use of home and is also on baby aspirin. PROCEDURE PERFORMED: Esophagogastroduodenoscopy with biopsy. PREOPERATIVE DIAGNOSIS: Iron deficiency anemia. ESTIMATED BLOOD LOSS: Minimal. IV sedation per anesthesia. PROCEDURE: After informed consent was obtained, the patient was brought into the endoscopy unit. IV sedation was administered by Anesthesia under continuous monitoring. Initially the Olympus GIF-190 video endoscope was inserted into the mouth. Esophagus intubated without any difficulty. It was gradually advanced into the stomach and duodenum and carefully examined. The bulb and the second part of the duodenum appeared normal, with biopsies taken to rule out celiac sprue. The scope at this time was withdrawn to the stomach, adequately insufflated with air, and upon careful examination, mucosa of the antrum, body, cardia and the fundus appeared normal, except for some linear erythema in the antrum punctate erythema in the body of the stomach consistent with mild gastritis with biopsies of the antrum and body taken. There were also a few diminutive polyps likely representing fundic gland polyps which were biopsied. The scope was then withdrawn into the esophagus. The GE junction was located at 38 cm from the incisors, with a small hiatal hernia noted. The esophagus appeared normal. There were no erosions or ulcerations seen and the patient tolerated the procedure well. IMPRESSION: 1. Mild gastritis antrum and body, biopsied. 2. A few small polyps likely representing fundic gland polyps which were biopsied. 3. Duodenal biopsies. 4. Small hiatal hernia. RECOMMENDATIONS: The findings of this examination were discussed with the patient and her daughters. Okay to resume diet. Iron supplementation per the primary team. Given stability of hemoglobin, negative stool testing for occult blood and absence of findings of GI bleed on endoscopic the and 09/2018 and today, no further plans for endoscopic evaluation at this time, however if any signs or symptoms of GI bleeding occurs or patient has precipitous drop in hemoglobin reevaluated at that time. Otherwise the GI service will stand by, please call us back with any questions or concerns.
[2019-10-31] MEDS: PANTOPRAZOLE 40 MG TABLET PO SCH (08:53)
[2019-10-31] MEDS: VENLAFAXINE HCL 75 MG TAB PO SCH ×2 (08:53→20:34)
[2019-10-31] MEDS: METOPROLOL TARTRATE 25 MG TAB PO SCH ×2 (08:54→20:35)
[2019-10-31] MEDS: BISACODYL 5 MG TABLET.DR PO SCH (08:54)
[2019-10-31] MEDS: INSULIN DETEMIR (LEVEMIR) 100 UNIT/ML SYR SQ SCH ×2 (08:54→20:35)
[2019-10-31] MEDS: HEPARIN SODIUM,PORCINE 5,000 UNIT/ML 1 ML VIAL SQ SCH ×2 (08:54→20:35)
[2019-10-31] MEDS: amLODIPine 5 MG TAB PO SCH (08:54)
[2019-10-31] MEDS ORDERED: HYDROmorphone 0.5 MG/0.5 ML SYRINGE IVP STA (09:33)
[2019-10-31] MEDS: GABAPENTIN 300 MG CAP PO SCH ×2 (09:47→20:35)
[2019-10-31] MEDS: SODIUM CHLORIDE 0.9% 1,000 ML IV SCH ×2 (09:49→20:34)
[2019-10-31] MEDS: NYSTATIN 100,000 UNIT/GM POWD 15 GM TOPICAL SCH ×3 (09:49→20:36)
[2019-10-31] MEDS ORDERED: ONDANSETRON 4 MG/2 ML VIAL IVP PRN (11:48)
[2019-10-31 11:51] LABS: Glucose,Whole Blood 221 mg/dL (75-99)
--- NOTE | 2019-10-31 12:15 | P.PN ---
Subjective Progress Note Date: 10/31/19 Principal diagnosis: weakness patient seems to be improved since yesterday just returned from EGD. Patient is asking for pain medication frequently. No major events reported by nursing staff Objective - Vital Signs Vital signs: Vital Signs Temp 97.6 F 10/31/19 08:09 Pulse 74 10/31/19 08:09 Resp 16 10/31/19 08:09 BP 144/75 10/31/19 08:09 Pulse Ox 96 10/31/19 08:09 Intake & Output 10/30/19 10/31/19 10/31/19 18:59 06:59 18:59 Intake Total 600 100 Balance 600 100 Intake: IV 100 Oral 600 Other: Voiding Method Bedside Commode Bedside Commode Diaper Diaper Incontinent Incontinent # Voids 2 2 - Exam Gen.: lethargic Heart: Normal S1-S2 Lungs: Clear to auscultation bilaterally Abdomen: Soft, no tenderness, positive bowel sounds in all 4 quadrant no guarding or rebound Skin: No new rash Psych: Alert and oriented 1 Neuro: No focal deficit - Labs CBC & Chem 7: 10/31/19 06:40 10/31/19 06:40 Labs: Abnormal Lab Results - Last 24 Hours (Table) 10/30/19 10/30/19 10/31/19 Range/Units 17:24 21:31 06:40 WBC 15.7 H (3.8-10.6) k/uL RBC 3.50 L (3.80-5.40) m/uL Hgb 9.1 L (11.4-16.0) gm/dL Hct 29.6 L (34.0-46.0) % MCHC 30.9 L (31.0-37.0) g/dL Plt Count 649 H (150-450) k/uL Neutrophils # 12.5 H (1.3-7.7) k/uL Sodium (137-145) mmol/L Glucose (74-99) mg/dL POC Glucose (mg/dL) 112 H 138 H (75-99) mg/dL Calcium (8.4-10.2) mg/dL Alkaline Phosphatase (38-126) U/L Total Protein (6.3-8.2) g/dL Albumin (3.5-5.0) g/dL 10/31/19 10/31/1919 Range/Units 06:40 07:06 11:49 WBC (3.8-10.6) k/uL RBC (3.80-5.40) m/uL Hgb (11.4-16.0) gm/dL Hct (34.0-46.0) % MCHC (31.0-37.0) g/dL Plt Count (150-450) k/uL Neutrophils # (1.3-7.7) k/uL Sodium 136 L (137-145) mmol/L Glucose 135 H (74-99) mg/dL POC Glucose (mg/dL) 147 H 221 H (75-99) mg/dL Calcium 8.3 L (8.4-10.2) mg/dL Alkaline Phosphatase 170 H (38-126) U/L Total Protein 5.4 L (6.3-8.2) g/dL Albumin 2.1 L (3.5-5.0) g/dL Microbiology - Last 24 Hours (Table) 10/29/19 05:51 Blood Culture - Preliminary Blood No Growth after 48 hours 10/28/19 20:06 Urine Culture - Final Urine,Voided Escherichia coli Assessment and Plan Assessment: 1. Acute encephalopathy multifactorial in nature including multiple comorbidities on baseline dementia complicated with urinary tract infection. 2. Acute urinary tract infection.E. coli pansensitive 3. Narcotic dependence including chronic [place] use and fentanyl patch along with pain pump for lower back pain. 4. Dementia and type of Alzheimer. 5. Liver cancer followed by [facility]. 6. Morbid obesity. 7. Frequent falls. 8. Questionable history of atrial fibrillation. 9. Severe debility and deconditioning. 10. Leukocytosis, improving. 11. Hyponatremia mild. 12. Diabetes mellitus, fairly controlled. 13. Moderate protein calorie malnutrition patient is clinically improving, urine culture revealed E. coli pansensitive and I would like to continue current medication given the significant improvement. I would like to go back to her old pain regimen as patient pain is uncontrolled and that's due to changing her pain medication on presentation when patient was confused and I discussed with nursing staff to increase her Neurontin back to her baseline. Increase her fentanyl patch active her normal home dose. I would like also to offer [place] 10 mg every more 4 hours as needed. Patient has pain pump that has been functional. Encourage oral intake. EGD was done this morning which showed simple gastritis and we will follow-up with GI recommendation. We'll repeat blood work in the morning and continue with diabetes management and go for less than 180 during the hospital stay. Plan for discharge in the morning based on clinical progress and patient needs to follow- up with oncology outpatient regarding her history of liver cancer. CODE STATUS decided by family to be DO NOT RESUSCITATE at this point
[2019-10-31 17:06] LABS: Glucose,Whole Blood 122 mg/dL (75-99)
[2019-10-31 20:06] LABS: Glucose,Whole Blood 145 mg/dL (75-99)
[2019-10-31] MEDS: ATORVASTATIN 40 MG TAB PO SCH (20:35)
[2019-11-01 06:55] LABS: Glucose,Whole Blood 81 mg/dL (75-99)
[2019-11-01] MEDS: VENLAFAXINE HCL 75 MG TAB PO SCH ×2 (08:00→21:19)
[2019-11-01] MEDS: GABAPENTIN 300 MG CAP PO SCH ×2 (08:00→21:19)
[2019-11-01] MEDS: BISACODYL 5 MG TABLET.DR PO SCH (08:00)
[2019-11-01] MEDS: METOPROLOL TARTRATE 25 MG TAB PO SCH ×2 (08:01→21:18)
[2019-11-01] MEDS: INSULIN DETEMIR (LEVEMIR) 100 UNIT/ML SYR SQ SCH ×2 (08:01→21:19)
[2019-11-01] MEDS: HEPARIN SODIUM,PORCINE 5,000 UNIT/ML 1 ML VIAL SQ SCH ×2 (08:01→21:19)
[2019-11-01] MEDS: amLODIPine 5 MG TAB PO SCH (08:01)
[2019-11-01] MEDS: INSULIN ASPART (NovoLOG) 100 UNIT/ML VIAL SQ SCH ×7 (08:02→21:20)
[2019-11-01] MEDS: PANTOPRAZOLE 40 MG TABLET PO SCH (08:03)
[2019-11-01] MEDS: NYSTATIN 100,000 UNIT/GM POWD 15 GM TOPICAL SCH ×3 (08:03→21:20)
[2019-11-01 08:05] LABS: Basophils # (A) 0.1 k/uL (0-0.2); Basophils % (A) 1 %; Eosinophils # (A) 0.4 k/uL (0-0.7); Eosinophils % (A) 2 %; HCT 30.5 % (34.0-46.0); HGB 9.2 gm/dL (11.4-16.0); Hypochromasia Marked; Lymphocytes # (A) 3.2 k/uL (1.0-4.8); Lymphocytes % (A) 19 %; MCHC 30.3 g/dL (31.0-37.0); MCV 86.1 fL (80.0-100.0); Mean Platelet Volume 7.5; Monocytes # (A) 0.8 k/uL (0-1.0); Monocytes % (A) 5 %; Neutrophils # (A) 12.1 k/uL (1.3-7.7); Neutrophils % (A) 72 %; Platelet Count 684 k/uL (150-450); RBC 3.54 m/uL (3.80-5.40); WBC 16.8 k/uL (3.8-10.6)
[2019-11-01] MEDS: HYDROcodone/APAP 10-325MG 1 EACH TAB PO PRN ×2 (08:12→18:03)
[2019-11-01 08:24] LABS: Albumin 2.3 g/dL (3.5-5.0); Calcium 8.3 mg/dL (8.4-10.2); Potassium 5.7 mmol/L (3.5-5.1); Total Bilirubin 0.4 mg/dL (0.2-1.3); Total Protein 5.8 g/dL (6.3-8.2)
[2019-11-01 12:22] LABS: Glucose,Whole Blood 149 mg/dL (75-99)
[2019-11-01] MEDS ORDERED: SODIUM POLYSTYRENE SULFONATE 15 GM/60 ML BOTTLE PO ONE (14:02)
--- NOTE | 2019-11-01 15:31 | P.PN ---
Subjective Progress Note Date: 11/01/19 his is a 68-year-old female one of Dr. Burnham with a previous medical history significant for coronary artery disease status post PCI and stent placement of the LAD back in 2009 with ischemic cardiomyopathy, hypertension and hypertensive perivascular disease with left ventricular hypertrophy, chronic kidney disease stage III, diabetes mellitus type 2, obstructive sleep apnea, CVA, paroxysmal atrial fibrillation last admitted on 10/07 for altered mental status and hyperglycemia which improved overnight. According to the daughter at bedside patient is found to have more falls and has fallen 5 times in the past 3 days. Patient is increasingly weak and tired. She also [id number] on the left side of her chest and left knee and ankle due to fall. Left ankle is in brace. Patient denies head injury but does endorse intermittent headache. There is some in confusion reported by the daughter. Patient denies any numbness weakness all 4 extremities, denies any history of seizures. She does have chronic abdominal pain and has a history of liver cancer for which patient did receive chemotherapy. Patient denied any shortness of breath, nausea, vomiting, hematuria, dysuria, abdominal pain, change in bowel habits.radiation ophthalmitis patient temp of 97.4 pulse 75 blood pressure 142 /62labs were positive for a hemoglobin of 9.9 leukocytosis of 18.2 platelets 747 potassium 5.7 sodium 131 and creatinine 0.94 and blood sugar of 362lactic acid was 2.7. Alkaline phosphatase is 200 normal liver enzymes otherwise magnesium 1.8 normal anion gap, UA was drawn the suggested 182 WBCs and hyaline casts urine and bacteria of moderate blooddrop from 13-8.7 in the past month.incentive for UTI. Patient's hemoglobin dropped from 13-8.4 in the past month. head and cervical spine CT, ankle x-ray, chest x-ray, hip and pelvis x-ray and rib x-ray was done that was negative for any acute abnormality.patient initiated on Rocephin 1 g daily.initiated on IV fluids. 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 Mattson was discussed with the daughter, initially they want to keep the oncologist however they have agreed to a consultation with our local oncologist while here. Peripheral smears to be do ne. Kayexalate for hyperkalemia, discharge planning subacute rehabIV Rocephin change to Ceftin 250 twice a day UTI treatment Objective - Vital Signs Vital signs: Vital Signs Temp 97.6 F 11/01/19 12:25 Pulse 74 11/01/19 12:25 Resp 16 11/01/19 12:25 BP 119/55 11/01/19 12:25 Pulse Ox 94 L 11/01/19 12:25 Intake & Output 10/31/19 11/01/19 11/01/19 18:59 06:59 18:59 Intake Total 500 200 540 Balance 500 200 540 Intake: IV 100 Oral 400 200 540 Other: Voiding Method Bedside Commode Diaper Incontinent # Voids 2 1 2 - Constitutional General appearance: Present: cooperative, no acute distress, obese - EENT Eyes: Present: anicteric sclerae, PERRLA, dentition normal, normal appearance ENT: Present: hard of hearing, normal oropharynx - Neck Carotids: bilateral: bruit absent - Respiratory Respiratory: bilateral: CTA, negative: diminished, dullness, rales, rhonchi - Cardiovascular Rhythm: regular Heart sounds: normal: S1 Abnormal Heart Sounds: Absent: systolic murmur, diastolic murmur, rub, S3 Gallop, S4 Gallop, click, other - Gastrointestinal General gastrointestinal: Present: normal bowel sounds, soft - Integumentary Integumentary: Present: decreased turgor, normal - Musculoskeletal Musculoskeletal: Present: generalized weakness - Psychiatric Psychiatric: Present: A&O x's 3, appropriate affect, intact judgment & insight - Labs CBC & Chem 7: 11/01/19 07:46 11/01/19 07:46 Labs: Abnormal Lab Results - Last 24 Hours (Table) 10/31/19 10/31/19 11/01/19 Range/Units 17:01 20:05 07:46 WBC 16.8 H (3.8-10.6) k/uL RBC 3.54 L (3.80-5.40) m/uL Hgb 9.2 L (11.4-16.0) gm/dL Hct 30.5 L (34.0-46.0) % MCHC 30.3 L (31.0-37.0) g/dL Plt Count 684 H (150-450) k/uL Neutrophils # 12.1 H (1.3-7.7) k/uL Potassium (3.5-5.1) mmol/L POC Glucose (mg/dL) 122 H 145 H (75-99) mg/dL Calcium (8.4-10.2) mg/dL Alkaline Phosphatase (38-126) U/L Total Protein (6.3-8.2) g/dL Albumin (3.5-5.0) g/dL 11/01/19 11/01/19 Range/Units 07:46 12:20 WBC (3.8-10.6) k/uL RBC (3.80-5.40) m/uL Hgb (11.4-16.0) gm/dL Hct (34.0-46.0) % MCHC (31.0-37.0) g/dL Plt Count (150-450) k/uL Neutrophils # (1.3-7.7) k/uL Potassium 5.7 H (3.5-5.1) mmol/L POC Glucose (mg/dL) 149 H (75-99) mg/dL Calcium 8.3 L (8.4-10.2) mg/dL Alkaline Phosphatase 176 H (38-126) U/L Total Protein 5.8 L (6.3-8.2) g/dL Albumin 2.3 L (3.5-5.0) g/dL Microbiology - Last 24 Hours (Table) 10/29/19 05:51 Blood Culture - Preliminary Blood No Growth after 72 hours Assessment and Plan Plan: 1.acute UTI causing Frequent falls, multifactorial likely secondary to generalized weakness , anemia and UTIacute with ecoli pansensitive with possible overmedication.mild confusion as noted by the family Patient initiated on ceftriaxone 1 g daily continue IV fluids at 100 mL/ hr. fentanyl reduced to 25microgram per hour. Gabapentin reduced to 300 mg daily at bedtime. Hold Vesicare 10 and any sedating medications. Pansensitive E. coli UTI, switch to oral CEPAHELEXIINE mg THRICE a day 5 more days 2. type 2 diabetes uncontrolled. Patient's home dose is reduced initiated on aspart insulin 10 units 3 times a day and Levemir 32 units at bedtime and 28 units as DD. Diabetic diet to be continued, switched to nothing by mouth after midnight 3 leukocytosis, anemia, thrombocytosis, cannot rule out mild dysplastic syndrome, known history of liver cancer, acute iron deficiency anemia, patient has been following heart healthy diet trying to lose weight. Is not eating as much at home. Iron studies ordered fecal occult is negative. Continue Protonix 40 mg daily GI consult placed. consult with oncology, peripheral smears to be done 4. Metabolic encephalopathy likely secondary to UTI H and is answering questions appropriately but daughter says that patient is slightly on the confused side. We will decrease patient's pain medication will start patient on Rocephin 1 g every 24 hours if no improvement in confusion pain medication can be dropped. Since patient is on these pain medications for many years patient can go in withdrawal if removed completely 5. acute onChronic pain. Patient has a thoracic stimulator and had a sprain in her left ankle and left knee. Fentanyl reduced to 25 g from 50. Gabapentin reduced to 300 daily at bedtime. Patient cannot take morphine. Diet ordered 0.5 at every 3 hours as needed for breakthrough pain 6. Hypertension and hypertensive cardiovascular disease. continue norvasc and metoprolol 7. Paroxysmal atrial fibrillation currently in sinus rhythm. continue metoprolol 8. Liver cancer Status post chemotherapy not completed. Under the care of hematology oncology at [facility]. 9.. Hyperlipidemia. atorvastatin 40 m gpo daily 10. COPD not in exacerbation. DuoNeb as needed 11 History of CAD status post myocardial infarction and prior PCI of the LAD. continue aspirin and metoprolol and lipitor 12. Recurrent depression.on Effexor 13. Overactive bladder. hold Vesicare 14. CODE STATUS full code 15 DVT with heparin every 12 16 GI prophylaxis with Protonix 40 daily Disposition patient may need group home facility at discharge
[2019-11-01] MEDS: CEPHALEXIN 500 MG CAP PO SCH ×2 (16:50→21:19)
[2019-11-01 16:56] LABS: Glucose,Whole Blood 83 mg/dL (75-99)
[2019-11-01 20:33] LABS: Glucose,Whole Blood 136 mg/dL (75-99)
[2019-11-01] MEDS: ATORVASTATIN 40 MG TAB PO SCH (21:19)
[2019-11-02] MEDS: SODIUM CHLORIDE 0.9% 1,000 ML IV SCH ×2 (01:10→21:21)
[2019-11-02 07:30] LABS: Glucose,Whole Blood 128 mg/dL (75-99)
[2019-11-02] MEDS: INSULIN ASPART (NovoLOG) 100 UNIT/ML VIAL SQ SCH ×7 (08:30→20:37)
[2019-11-02] MEDS: HEPARIN SODIUM,PORCINE 5,000 UNIT/ML 1 ML VIAL SQ SCH ×2 (08:31→21:20)
[2019-11-02] MEDS: VENLAFAXINE HCL 75 MG TAB PO SCH ×2 (08:31→21:20)
[2019-11-02] MEDS: GABAPENTIN 300 MG CAP PO SCH ×2 (08:32→21:19)
[2019-11-02] MEDS: METOPROLOL TARTRATE 25 MG TAB PO SCH ×2 (08:32→21:20)
[2019-11-02] MEDS: BISACODYL 5 MG TABLET.DR PO SCH (08:32)
[2019-11-02] MEDS: INSULIN DETEMIR (LEVEMIR) 100 UNIT/ML SYR SQ SCH ×2 (08:32→20:37)
[2019-11-02] MEDS: amLODIPine 5 MG TAB PO SCH (08:32)
[2019-11-02] MEDS: CEPHALEXIN 500 MG CAP PO SCH ×2 (08:32→21:20)
[2019-11-02] MEDS: PANTOPRAZOLE 40 MG TABLET PO SCH (08:33)
[2019-11-02] MEDS: NYSTATIN 100,000 UNIT/GM POWD 15 GM TOPICAL SCH ×3 (08:33→21:21)
[2019-11-02 08:36] LABS: Albumin 2.2 g/dL (3.5-5.0); Calcium 8.1 mg/dL (8.4-10.2); Potassium 4.6 mmol/L (3.5-5.1); Total Bilirubin 0.4 mg/dL (0.2-1.3); Total Protein 5.4 g/dL (6.3-8.2)
[2019-11-02] MEDS: HYDROcodone/APAP 10-325MG 1 EACH TAB PO PRN (08:37)
[2019-11-02 09:37] LABS: Basophils # (A) 0.1 k/uL (0-0.2); Basophils % (A) 1 %; Eosinophils # (A) 0.3 k/uL (0-0.7); Eosinophils % (A) 2 %; HCT 29.8 % (34.0-46.0); HGB 8.9 gm/dL (11.4-16.0); Hypochromasia Marked; Lymphocytes # (A) 2.4 k/uL (1.0-4.8); Lymphocytes % (A) 18 %; MCH 25.4 pg (25.0-35.0); MCHC 29.9 g/dL (31.0-37.0); Monocytes # (A) 0.9 k/uL (0-1.0); Monocytes % (A) 7 %; Neutrophils # (A) 9.7 k/uL (1.3-7.7); Neutrophils % (A) 72 %; Platelet Count 589 k/uL (150-450); RDW 14.4 % (11.5-15.5); WBC 13.6 k/uL (3.8-10.6)
[2019-11-02 10:37] LABS: Rouleaux Present
--- NOTE | 2019-11-02 11:57 | P.CONS ---
History of Present Illness - Reason for Consult Consult date: 11/02/19 abnormal CBC Requesting physician: Usha Patten - Chief Complaint falls, weakness - History of Present Illness Ms. Cuba is a very pleasant 69-year-old female patient who we've been asked to see due to abnormal CBC, patient daughter gives most of the history. Patient does have a history of a chronically elevated WBC count, 14-15 range, she was seen by infectious disease with extensive workup, no underlying cause for this was ever identified. This is been chronic x 8 years. She has also been anemic in the past, has taken oral iron which did cause constipation, s/p bariatric procedures for weight loss. At home recently patient has fell, at least 5 times, it is difficult for her family to get her up off the floor, she was brought into the hospital, she is currently being treated for an Escherichia coli UTI. Patient has a decent appetite, no recent fevers, chills, cough, abdominal pain, cramping, she did not have any urinary symptoms, no acute changes in bowel habits. Review of Systems 14 point review of systems is negative except as stated in HPI Past Medical History Past Medical History: Atrial Fibrillation, Cancer, CVA/TIA, Diabetes Mellitus, Hyperlipidemia, Hypertension Additional Past Medical History / Comment(s): Hepatocellular carcinoma (in remission), had one dose of chemo 2015, TIA X4, hiatal hernia, spinal stenosis, degenerative disc disease involving L3 and L4, diabetic peripheral neuropathy, hyperactive bladder, history of septic left knee joint post arthroplasty. restless leg syndrome. History of Any Multi-Drug Resistant Organisms: MRSA Year Discovered:: 2010 MDRO Source:: Left knee Past Surgical History: Adenoidectomy, Bariatric Surgery, Cholecystectomy, Heart Catheterization With Stent, Hernia Repair, Hysterectomy, Joint Replacement, Orthopedic Surgery, Tonsillectomy Additional Past Surgical History / Comment(s): Lap band placed in 2004, prolapsed & removed in 2005, neuro stimulator in back, one stent to LAD, left knee arthroscopic surgery, right total knee arthroplasty, left total knee a rthroplasty 10/01/2011, repair of quadriceps tendon 08/21/2011, left knee patellar tendon repair 09/24/2011, removal of the hardware of the left total knee arthroplasty with implantation of the antibiotic spacer October 08 2011, total left knee hardware replacement in May 2012,. trigger finger, left hand in 2004 with subsequent reversal in 2005. Uses a walker or wheelchair Past Anesthesia/Blood Transfusion Reactions: No Reported Reaction Date of Last Stent Placement:: 05/17/2010 Past Psychological History: Anxiety, Depression Smoking Status: Never smoker Past Alcohol Use History: None Reported Past Drug Use History: None Reported - Past Family History Mother Family Medical History: Congestive Heart Failure (CHF) Father Family Medical History: Myocardial Infarction ([place]) Medications and Allergies Home Medications Medication Instructions Recorded Confirmed Type Atorvastatin [Lipitor] 40 mg PO HS #30 tablet 04/06/14 10/28/19 Rx amLODIPine [Norvasc] 5 mg PO DAILY #30 tab 04/06/14 10/28/19 Rx Pantoprazole Sodium 40 mg PO DAILY 08/10/14 10/28/19 History Penciclovir 1% Cream [Denavir 1 applic TOPICAL 5XD PRN 08/10/14 10/28/19 History Cream] Solifenacin Succinate [Vesicare] 10 mg PO HS 08/10/14 10/28/19 History Calcium Carbonate [Calcium] 600 mg PO DAILY PRN 06/26/15 10/28/19 History Ondansetron [Zofran] 4 mg PO Q8H PRN 03/26/16 10/28/19 History Gabapentin [Neurontin] 600 mg PO HS 04/02/16 10/28/19 History Nystatin [Nystop] 1 applic TOPICAL DAILY PRN 02/14/17 10/28/19 History Bisacodyl [Dulcolax] 5 mg PO QAM 05/18/17 10/28/19 History Venlafaxine HCl [Effexor] 75 mg PO QAM 05/18/17 10/28/19 History Venlafaxine HCl [Effexor] 150 mg PO HS 05/18/17 10/28/19 History Insulin Aspart [NovoLOG Flexpen] 18 units SQ TID-W/MEALS 04/08/18 10/28/19 History Aspirin [Adult Low Dose Aspirin EC] 81 mg PO DAILY 09/14/18 10/28/19 History fentaNYL 50MCG/HR PATCH [Duragesic 50 mcg TRANSDERM Q72H 06/06/19 10/28/19 History 50MCG/HR] rOPINIRole HCL [Requip] 0.25 mg PO HS 06/06/19 10/28/19 History Metoprolol Tartrate 25 mg PO BID 10/07/19 10/28/19 History Gabapentin [Neurontin] 300 mg PO QAM 10/28/19 10/28/19 History Insulin Glargine,Hum.rec.anlog 35 unit SQ QAM 10/28/19 10/28/19 History [Lantus Solostar] Insulin Glargine,Hum.rec.anlog 40 unit SQ HS 10/28/19 10/28/19 History [Lantus Solostar] Meclizine HCl 25 mg PO DAILY PRN 10/28/19 10/28/19 History Allergies Allergy/AdvReac Type Severity Reaction Status Date / Time metformin HCl Allergy "kidneys Verified 10/28/19 21:52 [From Glucophage] shut down" Physical Exam Vitals: Vital Signs Temp Pulse Resp BP Pulse Ox 11/02/19 05:00 97.7 F 76 18 145/72 92 L 11/01/19 21:00 98.9 F 80 18 127/69 91 L 11/01/19 12:25 97.6 F 74 16 119/55 94 L Intake and Output 11/01/19 11/02/19 11/02/19 22:59 06:59 14:59 Intake Total 350 250 Balance 350 250 Intake: Oral 350 250 Other: Voiding Method Bedside Commode Diaper Incontinent # Voids 1 1 - Constitutional General appearance: cooperative, morbidly obese, no acute distress - EENT Eyes: anicteric sclerae, EOMI ENT: hearing grossly normal - Neck Neck: no lymphadenopathy - Respiratory Respiratory: bilateral: CTA - Cardiovascular Heart sounds: normal: S1, S2 Abnormal Heart Sounds: systolic murmur leg Peripheral Edema: bilateral: None - Gastrointestinal General gastrointestinal: no absent bowel sounds, no decreased bowel sounds, no distended, no hepatomegaly, no hyperactive bowel sounds, normal bowel sounds, no organomegaly, no rigid, no scaphoid, soft, no splenomegaly, no tenderness, no umbilical hernia, no ventral hernia - Integumentary Integumentary: pale - Neurologic Neurologic: CNII-XII intact - Musculoskeletal Musculoskeletal: generalized weakness, strength equal bilaterally - Psychiatric Psychiatric: A&O x's 3, appropriate affect Results CBC & Chem 7: 11/02/19 07:43 11/02/19 07:43 Labs: Abnormal Lab Results - Last 24 Hours (Table) 11/01/19 11/01/19 11/02/19 Range/Units 12:20 20:29 07:28 WBC (3.8-10.6) k/uL RBC (3.80-5.40) m/uL Hgb (11.4-16.0) gm/dL Hct (34.0-46.0) % MCHC (31.0-37.0) g/dL Plt Count (150-450) k/uL Neutrophils # (1.3-7.7) k/uL Sodium (137-145) mmol/L Glucose (74-99) mg/dL POC Glucose (mg/dL) 149 H 136 H 128 H (75-99) mg/dL Calcium (8.4-10.2) mg/dL Alkaline Phosphatase (38-126) U/L Total Protein (6.3-8.2) g/dL Albumin (3.5-5.0) g/dL 11/02/19 11/02/19 Range/Units 07:43 07:43 WBC 13.6 H (3.8-10.6) k/uL RBC 3.50 L (3.80-5.40) m/uL Hgb 8.9 L (11.4-16.0) gm/dL Hct 29.8 L (34.0-46.0) % MCHC 29.9 L (31.0-37.0) g/dL Plt Count 589 H (150-450) k/uL Neutrophils # 9.7 H (1.3-7.7) k/uL Sodium 136 L (137-145) mmol/L Glucose 120 H (74-99) mg/dL POC Glucose (mg/dL) (75-99) mg/dL Calcium 8.1 L (8.4-10.2) mg/dL Alkaline Phosphatase 182 H (38-126) U/L Total Protein 5.4 L (6.3-8.2) g/dL Albumin 2.2 L (3.5-5.0) g/dL Microbiology - Last 24 Hours (Table) 10/29/19 05:51 Blood Culture - Preliminary Blood No Growth after 96 hours Assessment and Plan (1) Thrombocytosis Current Visit: Yes Status: Acute Priority: Medium Code(s): D47.3 - ESSENTIAL (HEMORRHAGIC) THROMBOCYTHEMIA SNOMED Code(s): 2090510 (2) Anemia Current Visit: Yes Status: Acute Priority: High Code(s): D64.9 - ANEMIA, UNSPECIFIED SNOMED Code(s): 792059783 (3) Leukocytosis Current Visit: Yes Status: Chronic Priority: Medium Code(s): D72.829 - ELEVATED WHITE BLOOD CELL COUNT, UNSPECIFIED SNOMED Code(s): 889407339 (4) HCC (hepatocellular carcinoma) Narrative/Plan: Patient follows with 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 6 weeks ago she had her follow-up, no evidence of disease, she is now on annual checkup. She will continue to follow up there for her HCC. Current Visit: No Status: Chronic Priority: Low Code(s): C22.0 - LIVER CELL CARCINOMA SNOMED Code(s): 463625857 Plan: Patient's daughter reports that her mother's white blood cell count is chronically elevated, 14-15 range. Patient was seen by Infectious Disease with extensive workup and no underlying cause identified. It is been this way for about 8 years. On chart review patient is noted to be intermittently anemic and also noted to have thrombocytosis. These do seem to be during times of acute illness. Patient has a history of being iron deficient. Patient has had EGD and colonoscopy with biopsies pending. Patient has a history of daily aspirin and occasional NSAID use along with renal disease all of which can contribute to insensible blood losses in the small bowel. Despite abnormal labs, no acute intervention is needed Labs ordered for evaluation. Will follow up.
[2019-11-02 12:30] LABS: Glucose,Whole Blood 105 mg/dL (75-99)
--- NOTE | 2019-11-02 16:18 | P.PN ---
Subjective Progress Note Date: 11/02/19 his is a 68-year-old female one of Dr. Burnham with a previous medical history significant for coronary artery disease status post PCI and stent placement of the LAD back in 2009 with ischemic cardiomyopathy, hypertension and hypertensive perivascular disease with left ventricular hypertrophy, chronic kidney disease stage III, diabetes mellitus type 2, obstructive sleep apnea, CVA, paroxysmal atrial fibrillation last admitted on 10/07 for altered mental status and hyperglycemia which improved overnight. According to the daughter at bedside patient is found to have more falls and has fallen 5 times in the past 3 days. Patient is increasingly weak and tired. She also [id number] on the left side of her chest and left knee and ankle due to fall. Left ankle is in brace. Patient denies head injury but does endorse intermittent headache. There is some in confusion reported by the daughter. Patient denies any numbness weakness all 4 extremities, denies any history of seizures. She does have chronic abdominal pain and has a history of liver cancer for which patient did receive chemotherapy. Patient denied any shortness of breath, nausea, vomiting, hematuria, dysuria, abdominal pain, change in bowel habits.radiation ophthalmitis patient temp of 97.4 pulse 75 blood pressure 142 /62labs were positive for a hemoglobin of 9.9 leukocytosis of 18.2 platelets 747 potassium 5.7 sodium 131 and creatinine 0.94 and blood sugar of 362lactic acid was 2.7. Alkaline phosphatase is 200 normal liver enzymes otherwise magnesium 1.8 normal anion gap, UA was drawn the suggested 182 WBCs and hyaline casts urine and bacteria of moderate blooddrop from 13-8.7 in the past month.incentive for UTI. Patient's hemoglobin dropped from 13-8.4 in the past month. head and cervical spine CT, ankle x-ray, chest x-ray, hip and pelvis x-ray and rib x-ray was done that was negative for any acute abnormality.patient initiated on Rocephin 1 g daily.initiated on IV fluids. 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 Mattson was discussed with the daughter, initially they want to keep the oncologist however they have agreed to a consultation with our local oncologist while here. Peripheral smears to be do ne. Kayexalate for hyperkalemia, discharge planning subacute rehabIV Rocephin change to Ceftin 250 twice a day UTI treatment 11/02: Patient doesn't have any new complaints except for diminished appetite which has been ongoing for the past 6 months, patient is currently followed by oncology for liver cancer at another facility, local oncologist was requested to evaluate leukocytosis which is chronic, thrombocytosis, and anemia. Myelodysplasia cannot be ruled out , further recommendations from oncology service, he shouldn't requires subacute rehabilitation, and wanted to switch facilities [facility] is preferred as 1, [facility] in October 11. Patient follows with physical therapy and occupational therapy in a facility, blood cultures are currently still negative, no fever no chills. WBC 13.6, platelet count 589, hemoglobin 8.9 Objective - Vital Signs Vital signs: Vital Signs Temp 98.0 F 11/02/19 14:06 Pulse 79 11/02/19 14:06 Resp 16 11/02/19 14:06 BP 135/72 11/02/19 14:06 Pulse Ox 92 L 11/02/19 14:06 Intake & Output 11/01/19 11/02/19 11/02/19 18:59 06:59 18:59 Intake Total 540 600 710 Balance 540 600 710 Intake: IV 160 Sodium Chloride 0.9% 1, 160 000 ml @ 50 mls/hr IV . Q20H [facility] Rx#:[id number] Oral 540 600 550 Other: Voiding Method Bedside Commode Diaper Incontinent # Voids 2 1 1 - Constitutional General appearance: Present: cooperative, obese - EENT Eyes: Present: anicteric sclerae, EOMI, PERRLA ENT: Present: NA/AT, normal oropharynx - Neck Neck: Present: normal ROM - Respiratory Respiratory: bilateral: CTA, negative: diminished, dullness, rales - Cardiovascular Rhythm: regular Heart sounds: normal: S1, S2 Abnormal Heart Sounds: Absent: systolic murmur, diastolic murmur, rub, S3 Gallop, S4 Gallop, click, other - Gastrointestinal General gastrointestinal: Present: normal bowel sounds, soft - Integumentary Integumentary: Present: decreased turgor, normal - Neurologic Neurologic: Present: CNII-XII intact - Psychiatric Psychiatric: Present: A&O x's 3, appropriate affect - Labs CBC & Chem 7: 11/02/19 07:43 11/02/19 07:43 Labs: Abnormal Lab Results - Last 24 Hours (Table) 11/01/19 11/02/19 11/02/19 Range/Units 20:29 07:28 07:43 WBC 13.6 H (3.8-10.6) k/uL RBC 3.50 L (3.80-5.40) m/uL Hgb 8.9 L (11.4-16.0) gm/dL Hct 29.8 L (34.0-46.0) % MCHC 29.9 L (31.0-37.0) g/dL Plt Count 589 H (150-450) k/uL Neutrophils # 9.7 H (1.3-7.7) k/uL Sodium (137-145) mmol/L Glucose (74-99) mg/dL POC Glucose (mg/dL) 136 H 128 H (75-99) mg/dL Calcium (8.4-10.2) mg/dL Alkaline Phosphatase (38-126) U/L Total Protein (6.3-8.2) g/dL Albumin (3.5-5.0) g/dL 11/02/19 11/02/19 Range/Units 07:43 12:23 WBC (3.8-10.6) k/uL RBC (3.80-5.40) m/uL Hgb (11.4-16.0) gm/dL Hct (34.0-46.0) % MCHC (31.0-37.0) g/dL Plt Count (150-450) k/uL Neutrophils # (1.3-7.7) k/uL Sodium 136 L (137-145) mmol/L Glucose 120 H (74-99) mg/dL POC Glucose (mg/dL) 105 H (75-99) mg/dL Calcium 8.1 L (8.4-10.2) mg/dL Alkaline Phosphatase 182 H (38-126) U/L Total Protein 5.4 L (6.3-8.2) g/dL Albumin 2.2 L (3.5-5.0) g/dL Microbiology - Last 24 Hours (Table) 10/29/19 05:51 Blood Culture - Preliminary Blood No Growth after 96 hours Assessment and Plan Plan: 1.acute UTI causing Frequent falls, multifactorial likely secondary to generalized weakness , anemia and UTIacute with ecoli pansensitive with possible overmedication.mild confusion as noted by the family Patient initiated on ceftriaxone 1 g daily continue IV fluids at 100 mL/ hr. fentanyl reduced to 25microgram per hour. Gabapentin reduced to 300 mg daily at bedtime. Hold Vesicare 10 and any sedating medications. Pansensitive E. coli UTI, switch to oral CEPAHELEXIINE mg THRICE a day 5 more days 2. type 2 diabetes uncontrolled. Patient's home dose is reduced initiated on aspart insulin 10 units 3 times a day and Levemir 32 units at bedtime and 28 units as DD. Diabetic diet to be continued, switched to nothing by mouth after midnight 3 leukocytosis, anemia, thrombocytosis, cannot rule out mild dysplastic syndrome, known history of liver cancer, acute iron deficiency anemia, patient has been following heart healthy diet trying to lose weight. Is not eating as much at home. Iron studies ordered fecal occult is negative. Continue Protonix 40 mg daily GI consult placed. consult with oncology, peripheral smears to be checked 4. Metabolic encephalopathy likely secondary to UTI H and is answering questions appropriately but daughter says that patient is slightly on the confus ed side history of . We will decrease patient's pain medication, now on oral cephalexin for UTI pansensitive if no improvement in confusion pain medication can be dropped. Since patient is on these pain medications for many years patient can go in withdrawal if removed completely 5. acute onChronic pain. Patient has a thoracic stimulator and had a sprain in her left ankle and left knee. Fentanyl reduced to 25 g from 50. Gabapentin reduced to 300 daily at bedtime. Patient cannot take morphine. Diet ordered 0.5 at every 3 hours as needed for breakthrough pain 6. Hypertension and hypertensive cardiovascular disease. continue norvasc and metoprolol 7. Paroxysmal atrial fibrillation currently in sinus rhythm. continue metoprolol 8. Liver cancer Status post chemotherapy not completed. Under the care of hematology oncology at [facility]. 9.. Hyperlipidemia. atorvastatin 40 m gpo daily 10. COPD not in exacerbation. DuoNeb as needed 11 History of CAD status post myocardial infarction and prior PCI of the LAD. continue aspirin and metoprolol and lipitor 12. Recurrent depression.on Effexor 13. Overactive bladder. hold Vesicare 14. CODE STATUS full code 15 DVT with heparin every 12 16 GI prophylaxis with Protonix 40 daily Disposition subacute [facility] facility at discharge
[2019-11-02 16:48] LABS: Ferritin 250.7 ng/mL (10.0-291.0)
[2019-11-02 17:12] LABS: Glucose,Whole Blood 85 mg/dL (75-99)
[2019-11-02 18:02] LABS: % Iron Saturation 6.74 (12.00-45.00)
[2019-11-02 20:14] LABS: Glucose,Whole Blood 70 mg/dL (75-99)
[2019-11-02] MEDS: ATORVASTATIN 40 MG TAB PO SCH (21:20)
[2019-11-02 23:15] LABS: Glucose,Whole Blood 147 mg/dL (75-99)
[2019-11-03] MEDS: HYDROcodone/APAP 10-325MG 1 EACH TAB PO PRN (00:13)
[2019-11-03 07:14] LABS: Glucose,Whole Blood 152 mg/dL (75-99)
[2019-11-03] MEDS: HEPARIN SODIUM,PORCINE 5,000 UNIT/ML 1 ML VIAL SQ SCH ×2 (07:45→20:49)
[2019-11-03] MEDS: GABAPENTIN 300 MG CAP PO SCH ×2 (07:45→20:47)
[2019-11-03] MEDS: METOPROLOL TARTRATE 25 MG TAB PO SCH ×2 (07:45→20:48)
[2019-11-03] MEDS: BISACODYL 5 MG TABLET.DR PO SCH (07:45)
[2019-11-03] MEDS: VENLAFAXINE HCL 75 MG TAB PO SCH ×2 (07:45→20:59)
[2019-11-03] MEDS: INSULIN DETEMIR (LEVEMIR) 100 UNIT/ML SYR SQ SCH ×2 (07:45→21:13)
[2019-11-03] MEDS: CEPHALEXIN 500 MG CAP PO SCH ×2 (07:46→20:48)
[2019-11-03] MEDS: PANTOPRAZOLE 40 MG TABLET PO SCH (07:46)
[2019-11-03] MEDS: amLODIPine 5 MG TAB PO SCH (07:46)
[2019-11-03] MEDS: INSULIN ASPART (NovoLOG) 100 UNIT/ML VIAL SQ SCH ×7 (07:47→21:10)
[2019-11-03] MEDS: NYSTATIN 100,000 UNIT/GM POWD 15 GM TOPICAL SCH ×3 (07:48→21:13)
[2019-11-03 12:06] LABS: Glucose,Whole Blood 126 mg/dL (75-99)
--- NOTE | 2019-11-03 15:13 | P.PN ---
Subjective Progress Note Date: 11/03/19 his is a 68-year-old female one of Dr. Burnham with a previous medical history significant for coronary artery disease status post PCI and stent placement of the LAD back in 2009 with ischemic cardiomyopathy, hypertension and hypertensive perivascular disease with left ventricular hypertrophy, chronic kidney disease stage III, diabetes mellitus type 2, obstructive sleep apnea, CVA, paroxysmal atrial fibrillation last admitted on 10/07 for altered mental status and hyperglycemia which improved overnight. According to the daughter at bedside patient is found to have more falls and has fallen 5 times in the past 3 days. Patient is increasingly weak and tired. She also [id number] on the left side of her chest and left knee and ankle due to fall. Left ankle is in brace. Patient denies head injury but does endorse intermittent headache. There is some in confusion reported by the daughter. Patient denies any numbness weakness all 4 extremities, denies any history of seizures. She does have chronic abdominal pain and has a history of liver cancer for which patient did receive chemotherapy. Patient denied any shortness of breath, nausea, vomiting, hematuria, dysuria, abdominal pain, change in bowel habits.radiation ophthalmitis patient temp of 97.4 pulse 75 blood pressure 142 /62labs were positive for a hemoglobin of 9.9 leukocytosis of 18.2 platelets 747 potassium 5.7 sodium 131 and creatinine 0.94 and blood sugar of 362lactic acid was 2.7. Alkaline phosphatase is 200 normal liver enzymes otherwise magnesium 1.8 normal anion gap, UA was drawn the suggested 182 WBCs and hyaline casts urine and bacteria of moderate blooddrop from 13-8.7 in the past month.incentive for UTI. Patient's hemoglobin dropped from 13-8.4 in the past month. head and cervical spine CT, ankle x-ray, chest x-ray, hip and pelvis x-ray and rib x-ray was done that was negative for any acute abnormality.patient initiated on Rocephin 1 g daily.initiated on IV fluids. Iron studies and vitamin B12 vitamin D ordered to rule out iron deficiency anemia.gastroenterology consult for acute anemia of for possible EGD continue Protonix 40 mg by mouth daily nothing by mouth after midnight 11/01: Patient was seen at bedside, still has anorexia, IV fluids will be decreased to Hep-Lock today, has cough, rash no significant shortness of breath, family is at bedside, noted to be still weakened, ongoing physical therapy that needs to continue post discharge subacute, social work program coordinator traffic and transport planner is aware, she has leukocytoses thrombo-cytosis and anemia,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 Mattson was discussed with the daughter, initially they want to keep the oncologist however they have agreed to a consultation with our local oncologist while here. Peripheral smears to be do ne. Kayexalate for hyperkalemia, discharge planning subacute rehabIV Rocephin change to Ceftin 250 twice a day UTI treatment 11/02: Patient doesn't have any new complaints except for diminished appetite which has been ongoing for the past 6 months, patient is currently followed by oncology for liver cancer at another facility, local oncologist was requested to evaluate leukocytosis which is chronic, thrombocytosis, and anemia. Myelodysplasia cannot be ruled out , further recommendations from oncology service, he shouldn't requires subacute rehabilitation, and wanted to switch facilities [facility] is preferred as 1, [facility] in October 11. Patient follows with physical therapy and occupational therapy in a facility, blood cultures are currently still negative, no fever no chills. WBC 13.6, platelet count 589, hemoglobin 8.9 11/03 Patient complaining of fatigue which is chronic, patient's mood is down, she wanted to go home, however she still very much deconditioned, she is on venlafaxine 225 mg daily, when dissipating heard discharge to his subacute rehab in the morning, no new recommendations from oncology, no diarrhea, no constipation, no nausea no vomiting, sleep is still broken as usual, can add melatonin at bedtime to restore sleep Review of Systems Constitutional: Denies chills, Denies fever, endorses weakness, endorsesweight loss Eyes: denies decreased vision, denies diplopia, denies discharge, denies pain Ears: deny: decreased hearing Ears, nose, mouth and throat: Denies dental pain, Denies headache, Denies nasal discharge, Denies nose pain Cardiovascular: Denies chest pain, Denies decreased exercise tolerance, Denies edema, Denies high blood pressure, Denies irregular heart beat, Denies palpitations, Denies paroxysmal nocturnal dyspnea, Denies rapid heart beat, Denies shortness of breath Respiratory: Denies congestion, Denies cough, Denies cough with sputum, Denies dyspnea, Denies home oxygen, Denies wheezing Gastrointestinal: Denies abdominal pain, Denies change in bowel habits, Denies coffee ground emesis, Denies early satiety, Denies excessive gas, Denies heartburn, Denies hematemesis, Denies hematochezia, Denies loss of appetite, Denies nausea, Denies vomiting Genitourinary: Denies dysuria, Denies flank pain, Denies kidney stones, Denies menorrhagia, Denies urgency, Denies urinary frequency Musculoskeletal:endorses gait dysfunction and balance, endorses limitation of motion, Denies morning stiffness, endorses left chest pain left ankle painendorses frequent falls Integumentary: Denies rash, Denies wounds, Denies brittle nails, Denies change in hair/nails, Denies darkening of skin Neurological: endorses balance difficulties, Denies change in speech, Denies double vision, endorses gait dysfunction, Denies loss of vision, Denies motor disturbance, Denies numbness, Denies paralysis, Denies paresthesias, Denies seizures Psychiatric: Denies anxiety, Denies depression Endocrine: Denies excessive sweating, Denies excessive thirst, Denies high blood sugars, Denies palpitations Hematologic/Lymphatic: Denies easy bruising, Denies lymphadenopathy Objective - Vital Signs Vital signs: Vital Signs Temp 97.6 F 11/03/19 12:43 Pulse 73 11/03/19 12:43 Resp 16 11/03/19 12:43 BP 127/75 11/03/19 12:43 Pulse Ox 92 L 11/03/19 12:43 Intake & Output 11/02/19 11/03/19 11/03/19 18:59 06:59 18:59 Intake Total 710 500 540 Balance 710 500 540 Intake: IV 160 Sodium Chloride 0.9% 1, 160 000 ml @ 50 mls/hr IV . Q20H [facility] Rx#:[id number] Oral 550 500 540 Other: Voiding Method Bedside Commode Diaper Incontinent # Voids 1 1 1 - Constitutional General appearance: Present: cooperative, no acute distress, obese - EENT Eyes: Present: anicteric sclerae, EOMI, PERRLA, normal appearance ENT: Present: normal oropharynx - Respiratory Respiratory: bilateral: CTA, negative: diminished, dullness - Cardiovascular Rhythm: regular Heart sounds: normal: S1, S2 Abnormal Heart Sounds: Absent: systolic murmur, diastolic murmur, rub, S3 Gallop, S4 Gallop, click, other - Integumentary Integumentary: Present: decreased turgor, normal - Neurologic Neurologic: Present: CNII-XII intact - Musculoskeletal Musculoskeletal: Present: generalized weakness, strength equal bilaterally - Psychiatric Psychiatric: Present: A&O x's 3 - Labs CBC & Chem 7: 11/02/19 07:43 11/02/19 07:43 Labs: Abnormal Lab Results - Last 24 Hours (Table) 11/02/19 11/02/19 11/02/19 Range/Units 07:43 07:46 20:08 POC Glucose (mg/dL) 70 L (75-99) mg/dL Iron 13 L (50-170) ug/dL TIBC 193 L (228-460) ug/dL % Saturation 6.74 L (12.00-45.00) Total Protein (PEP) 5.0 L (6.2-8.2) g/dL 11/02/19 11/03/19 11/03/19 Range/Units 23:10 07:09 11:58 POC Glucose (mg/dL) 147 H 152 H 126 H (75-99) mg/dL Iron (50-170) ug/dL TIBC (228-460) ug/dL % Saturation (12.00-45.00) Total Protein (PEP) (6.2-8.2) g/dL Microbiology - Last 24 Hours (Table) 10/29/19 05:51 Blood Culture - Preliminary Blood No Growth after 120 hours Assessment and Plan Plan: 1.acute UTI causing Frequent falls, multifactorial likely secondary to generalized weakness , anemia and UTI acute with ecoli pansensitive with possi ble over medication.mild confusion as noted by the family Patient initiated on ceftriaxone 1 g daily continue IV fluids at 100 mL/ hr. fentanyl reduced to 25microgram per hour. Gabapentin reduced to 300 mg daily at bedtime. Hold Vesicare 10 and any sedating medications. Pansensitive E. coli UTI, switch to oral CEPAHELEXIINE mg THRICE a day 5 more days 2. type 2 diabetes uncontrolled. Patient's home dose is reduced initiated on aspart insulin 10 units 3 times a day and Levemir 32 units at bedtime and 28 units as DD. Diabetic diet to be continued, 3 leukocytosis, anemia, thrombocytosis, cannot rule out mild dysplastic syndrome, known history of liver cancer, acute iron deficiency anemia, patient has been following heart healthy diet trying to lose weight. Is not eating as much at home. Iron studies ordered fecal occult is negative. Continue Protonix 40 mg daily GI consult placed. consult with oncology, peripheral smears to be checked 4. Metabolic encephalopathy likely secondary to UTI H and is answering questions appropriately but daughter says that patient is slightly on the confused side history of sundowning. We will decrease patient's pain medication, now on oral cephalexin for UTI pansensitive if no improvement in confusion pain medication can be dropped. Since patient is on these pain medications for many years patient can go in withdrawal if removed completely 5. acute onChronic pain. Patient has a thoracic stimulator and had a sprain in her left ankle and left knee. Fentanyl reduced to 25 g from 50. Gabapentin reduced to 300 daily at bedtime. Patient cannot take morphine. Diet ordered 0.5 at every 3 hours as needed for breakthrough pain 6. Hypertension and hypertensive cardiovascular disease. continue norvasc and metoprolol 7. Paroxysmal atrial fibrillation currently in sinus rhythm. continue metoprolol 8. Liver cancer Status post chemotherapy not completed. Under the care of hematology oncology at [facility]. 9.. Hyperlipidemia. atorvastatin 40 m gpo daily 10. COPD not in exacerbation. DuoNeb as needed 11 History of CAD status post myocardial infarction and prior PCI of the LAD. continue aspirin and metoprolol and lipitor 12. Recurrent depression.on Effexor 225 mg daily 13. Overactive bladder. hold Vesicare 14. CODE STATUS full code 15 DVT with heparin every 12 16 GI prophylaxis with Protonix 40 daily Disposition subacute custodial facility at discharge November 04
--- NOTE | 2019-11-03 15:18 | P.DS ---
Providers Date of admission: 10/29/19 11:59 Expected date of discharge: 11/04/19 Attending physician: Fariba Maza MD Consults: 11/01/19 15:27 Consult Physician Routine Consulting Provider: Melquiades Multani Consult Reason/Comments: r/o myelodysplase, abnormal hematology lab Do you want consulting provider notified?: Yes Primary care physician: [facility] Course: his is a 68-year-old female one of Dr. Burnham with a previous medical history significant for coronary artery disease status post PCI and stent placement of the LAD back in 2009 with ischemic cardiomyopathy, hypertension and hypertensive perivascular disease with left ventricular hypertrophy, chronic kidney disease stage III, diabetes mellitus type 2, obstructive sleep apnea, CVA, paroxysmal atrial fibrillation last admitted on 10/07 for altered mental status and hyperglycemia which improved overnight. According to the daughter at bedside patient is found to have more falls and has fallen 5 times in the past 3 days. Patient is increasingly weak and tired. She also on the left side of her chest and left knee and ankle due to fall. Left ankle is in brace. Patient denies head injury but does endorse intermittent headache. There is some in confusion reported by the daughter. Patient denies any numbness weakness all 4 extremities, denies any history of seizures. She does have chronic abdominal pain and has a history of liver cancer for which patient did receive chemotherapy. Patient denied any shortness of breath, nausea, vomiting, hematuria, dysuria, abdominal pain, change in bowel habits.radiation ophthalmitis patient temp of 97.4 pulse 75 blood pressure 142/62labs were positive for a hemoglobin of 9.9 leukocytosis of 18.2 platelets 747 potassium 5.7 sodium 131 and creatinine 0.94 and blood sugar of 362lactic acid was 2.7. Alkaline phosphatase is 200 normal liver enzymes otherwise magnesium 1.8 normal anion gap, UA was drawn the suggested 182 WBCs and hyaline casts urine and bacteria of moderate blooddrop from 13-8.7 in the past month.incentive for UTI. Patient's hemoglobin dropped from 13-8.4 in the past month. head and cervical spine CT, ankle x-ray, chest x-ray, hip and pelvis x- ray and rib x-ray was done that was negative for any acute abnormality.patient initiated on Rocephin 1 g daily.initiated on IV fluids. 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 Peripheral smears to be done. Kayexalate for hyperkalemia, discharge planning subacute rehabIV Rocephin change to Ceftin 250 twice a day UTI treatment 11/02: Patient doesn't have any new complaints except for diminished appetite which has been ongoing for the past 6 months, patient is currently followed by oncology for liver cancer at another facility, local oncologist was requested to evaluate leukocytosis which is chronic, thrombocytosis, and anemia. Myelodysplasia cannot be ruled out , further recommendations from oncology service, he shouldn't requires subacute rehabilitation, and wanted to switch facilities [facility] is preferred as 1, [facility] in October 11. Patient follows with physical therapy and occupational therapy in a facility, blood cultures are currently still negative, no fever no chills. WBC 13.6, platelet count 589, hemoglobin 8.9 11/03 Patient complaining of fatigue which is chronic, patient's mood is down, she wanted to go home, however she still very much deconditioned, she is on venlafaxine 225 mg daily, when dissipating heard discharge to his subacute rehab in the morning, no new recommendations from oncology, no diarrhea, no constipation, no nausea no vomiting, sleep is still broken as usual, can add melatonin at bedtime to restore sleep I infusion to be cannot be done for iron saturation of 6.75% FINAL DIAGNOSES 1.acute UTI causing Frequent falls, multifactorial likely secondary to generalized weakness , anemia and UTIacute with ecoli pansensitive with possible overmedication.mild confusion as noted by the family Patient initiated on ceftriaxone 1 g daily continue IV fluids at 100 mL/ hr. fentanyl reduced to 25microgram per hour. Gabapentin reduced to 300 mg daily at bedtime. Hold Vesicare 10 and any sedating medications. Pansensitive E. coli UTI, switch to oral CEPAHELEXIINE mg THRICE a day 3 more days 2. type 2 diabetes uncontrolled. Patient's home dose is reduced initiated on aspart insulin 10 units 3 times a day and Levemir 32 units at bedtime and 28 units as DD. Diabetic diet to be continued, 3 leukocytosis, anemia, thrombocytosis, cannot rule out mild dysplastic syndrome, known history of liver cancer, acute iron deficiency anemia, patient has been following heart healthy diet trying to lose weight. Is not eating as much at home. Iron studies ordered fecal occult is negative. Continue Protonix 40 mg daily GI consult placed. consult with oncology, peripheral smears to be c hecked 4. Metabolic encephalopathy likely secondary to UTI H and is answering questions appropriately but daughter says that patient is slightly on the confused side history of . We will decrease patient's pain medication, now on oral cephalexin for UTI pansensitive if no improvement in confusion pain medication can be dropped. Since patient is on these pain medications for many years patient can go in withdrawal if removed completely 5. acute onChronic pain. Patient has a thoracic stimulator and had a sprain in her left ankle and left knee. Fentanyl reduced to 25 g from 50. Gabapentin reduced to 300 daily at bedtime. Patient cannot take morphine. Diet ordered 0.5 at every 3 hours as needed for breakthrough pain 6. Hypertension and hypertensive cardiovascular disease. continue norvasc and metoprolol 7. Paroxysmal atrial fibrillation currently in sinus rhythm. continue metoprolol 8. Liver cancer Status post chemotherapy not completed. Under the care of [facility] oncology at [facility]. 9.. Hyperlipidemia. atorvastatin 40 m gpo daily 10. COPD not in exacerbation. DuoNeb as needed 11 History of CAD status post myocardial infarction and prior PCI of the LAD. continue aspirin and metoprolol and lipitor 12. Recurrent depression.on Effexor 225 mg daily 13. Overactive bladder. Can resume Vesicare on discharge 14. Iron deficiency anemia,FERRLECIT 125 mg daily 2 doses given starting November 03 14. CODE STATUS full code 15 DVT with heparin every 12 16 GI prophylaxis with Protonix 40 daily Disposition subacute [facility] facility at discharge Елена. To complete 3 more days of oral cephalexin 500 3 times a day for UTI Discharge Medication List Atorvastatin [Lipitor] 40 mg PO HS #30 tablet 04/06/14 [Rx] amLODIPine [Norvasc] 5 mg PO DAILY #30 tab 04/06/14 [Rx] Pantoprazole Sodium 40 mg PO DAILY 08/10/14 [History] Penciclovir 1% Cream [Denavir Cream] 1 applic TOPICAL 5XD PRN 08/10/14 [History] Solifenacin Succinate [Vesicare] 10 mg PO HS 08/10/14 [History] Calcium Carbonate [Calcium] 600 mg PO DAILY PRN 06/26/15 [History] Ondansetron [Zofran] 4 mg PO Q8H PRN 03/26/16 [History] Gabapentin [Neurontin] 600 mg PO HS 04/02/16 [History] Nystatin [Nystop] 1 applic TOPICAL DAILY PRN 02/14/17 [History] Bisacodyl [Dulcolax] 5 mg PO QAM 05/18/17 [History] Venlafaxine HCl [Effexor] 75 mg PO QAM 05/18/17 [History] Venlafaxine HCl [Effexor] 150 mg PO HS 05/18/17 [History] Aspirin [Adult Low Dose Aspirin EC] 81 mg PO DAILY 09/14/18 [History] fentaNYL 50MCG/HR PATCH [Duragesic 50MCG/HR] 50 mcg TRANSDERM Q72H 06/06/19 [History] rOPINIRole HCL [Requip] 0.25 mg PO HS 06/06/19 [History] Metoprolol Tartrate 25 mg PO BID 10/07/19 [History] Gabapentin [Neurontin] 300 mg PO QAM 10/28/19 [History] Meclizine HCl 25 mg PO DAILY PRN 10/28/19 [History] Acetaminophen Tab [Tylenol] 650 mg PO Q6HR PRN tab 11/02/19 [Rx] Cephalexin [Keflex] 500 mg PO BID cap 11/02/19 [Rx] HYDROcodone/APAP 10-325MG [[place] 10-325] 1 each PO Q4HR PRN tab 11/02/19 [Rx] INSULIN ASPART (NovoLOG) [NovoLOG (formulary)] 0 unit SQ ACHS vial 11/02/19 [Rx] INSULIN ASPART (NovoLOG) [NovoLOG (formulary)] 10 unit SQ AC-TID vial 11/02/19 [Rx] Insulin Detemir (Levemir) [Levemir] 28 unit SQ DAILY@0700 syr 11/02/19 [Rx] Insulin Detemir (Levemir) [Levemir] 32 unit SQ HS syr 11/02/19 [Rx] fentaNYL 50MCG/HR PATCH [Duragesic 50MCG/HR] 1 patch TRANSDERM Q72H patch 11/02/19 [Rx] Patient Condition at Discharge: Serious Plan - Discharge Summary Discharge Rx Participant: No New Discharge Prescriptions: New fentaNYL 50MCG/HR PATCH [Duragesic 50MCG/HR] 1 patch TRANSDERM Q72H patch Cephalexin [Keflex] 500 mg PO BID cap Insulin Detemir (Levemir) [Levemir] 28 unit SQ DAILY@0700 syr Insulin Detemir (Levemir) [Levemir] 32 unit SQ HS syr HYDROcodone/APAP 10-325MG [[place] 10-325] 1 each PO Q4HR PRN tab PRN Reason: Pain INSULIN ASPART (NovoLOG) [NovoLOG (formulary)] 10 unit SQ AC-TID vial INSULIN ASPART (NovoLOG) [NovoLOG (formulary)] 0 unit SQ ACHS vial Acetaminophen Tab [Tylenol] 650 mg PO Q6HR PRN tab PRN Reason: Mild Pain Or Fever > 100.5 Continue Atorvastatin [Lipitor] 40 mg PO HS #30 tablet amLODIPine [Norvasc] 5 mg PO DAILY #30 tab Solifenacin Succinate [Vesicare] 10 mg PO HS Penciclovir 1% Cream [Denavir Cream] 1 applic TOPICAL 5XD PRN PRN Reason: Cold Sores Pantoprazole Sodium 40 mg PO DAILY Calcium Carbonate [Calcium] 600 mg PO DAILY PRN PRN Reason: Heartburn Ondansetron [Zofran] 4 mg PO Q8H PRN PRN Reason: Nausea Gabapentin [Neurontin] 600 mg PO HS Nystatin [Nystop] 1 applic TOPICAL DAILY PRN PRN Reason: Skin Irritation Bisacodyl [Dulcolax] 5 mg PO QAM Venlafaxine HCl [Effexor] 150 mg PO HS Venlafaxine HCl [Effexor] 75 mg PO QAM Aspirin [Adult Low Dose Aspirin EC] 81 mg PO DAILY rOPINIRole HCL [Requip] 0.25 mg PO HS fentaNYL 50MCG/HR PATCH [Duragesic 50MCG/HR] 50 mcg TRANSDERM Q72H Metoprolol Tartrate 25 mg PO BID Gabapentin [Neurontin] 300 mg PO QAM Meclizine HCl 25 mg PO DAILY PRN PRN Reason: Vertigo Discontinued Insulin Aspart [NovoLOG Flexpen] 18 units SQ TID-W/MEALS Insulin Glargine,Hum.rec.anlog [Lantus Solostar] 35 unit SQ QAM Insulin Glargine,Hum.rec.anlog [Lantus Solostar] 40 unit SQ HS Discharge Medication List Atorvastatin [Lipitor] 40 mg PO HS #30 tablet 04/06/14 [Rx] amLODIPine [Norvasc] 5 mg PO DAILY #30 tab 04/06/14 [Rx] Pantoprazole Sodium 40 mg PO DAILY 08/10/14 [History] Penciclovir 1% Cream [Denavir Cream] 1 applic TOPICAL 5XD PRN 08/10/14 [History] Solifenacin Succinate [Vesicare] 10 mg PO HS 08/10/14 [History] Calcium Carbonate [Calcium] 600 mg PO DAILY PRN 06/26/15 [History] Ondansetron [Zofran] 4 mg PO Q8H PRN 03/26/16 [History] Gabapentin [Neurontin] 600 mg PO HS 04/02/16 [History] Nystatin [Nystop] 1 applic TOPICAL DAILY PRN 02/14/17 [History] Bisacodyl [Dulcolax] 5 mg PO QAM 05/18/17 [History] Venlafaxine HCl [Effexor] 75 mg PO QAM 05/18/17 [History] Venlafaxine HCl [Effexor] 150 mg PO HS 05/18/17 [History] Aspirin [Adult Low Dose Aspirin EC] 81 mg PO DAILY 09/14/18 [History] fentaNYL 50MCG/HR PATCH [Duragesic 50MCG/HR] 50 mcg TRANSDERM Q72H 06/06/19 [History] rOPINIRole HCL [Requip] 0.25 mg PO HS 06/06/19 [History] Metoprolol Tartrate 25 mg PO BID 10/07/19 [History] Gabapentin [Neurontin] 300 mg PO QAM 10/28/19 [History] Meclizine HCl 25 mg PO DAILY PRN 10/28/19 [History] Acetaminophen Tab [Tylenol] 650 mg PO Q6HR PRN tab 11/02/19 [Rx] Cephalexin [Keflex] 500 mg PO BID cap 11/02/19 [Rx] HYDROcodone/APAP 10-325MG [[place] 10-325] 1 each PO Q4HR PRN tab 11/02/19 [Rx] INSULIN ASPART (NovoLOG) [NovoLOG (formulary)] 0 unit SQ ACHS vial 11/02/19 [Rx] INSULIN ASPART (NovoLOG) [NovoLOG (formulary)] 10 unit SQ AC-TID vial 11/02/19 [Rx] Insulin Detemir (Levemir) [Levemir] 28 unit SQ DAILY@0700 syr 11/02/19 [Rx] Insulin Detemir (Levemir) [Levemir] 32 unit SQ HS syr 11/02/19 [Rx] fentaNYL 50MCG/HR PATCH [Duragesic 50MCG/HR] 1 patch TRANSDERM Q72H patch 11/02/19 [Rx] Follow up Appointment(s)/Referral(s): Shane Burnham MD [Primary Care Provider] - 1-2 days Discharge Disposition: TRANSFER TO SNF/ECF
[2019-11-03 15:55] LABS: Glucose,Whole Blood 138 mg/dL (75-99)
[2019-11-03 16:57] LABS: Glucose,Whole Blood 194 mg/dL (75-99)
[2019-11-03] MEDS: SODIUM FERRIC GLUCONAT-SUCROSE 125 MG in SODIUM CHLORIDE 0.9% 100 ML IVPB SCH (17:09)
[2019-11-03] MEDS: SODIUM CHLORIDE 0.9% 1,000 ML IV SCH (17:10)
[2019-11-03 20:26] LABS: Glucose,Whole Blood 96 mg/dL (75-99)
[2019-11-03] MEDS: ATORVASTATIN 40 MG TAB PO SCH (20:47)
[2019-11-03] MEDS ORDERED: MELATONIN 3 MG TABLET PO SCH (21:00)
[2019-11-04] MEDS: amLODIPine 5 MG TAB PO SCH (05:17)
[2019-11-04] MEDS: HYDROcodone/APAP 10-325MG 1 EACH TAB PO PRN ×2 (05:17→10:10)
[2019-11-04 07:26] LABS: Glucose,Whole Blood 179 mg/dL (75-99)
[2019-11-04] MEDS: INSULIN DETEMIR (LEVEMIR) 100 UNIT/ML SYR SQ SCH (07:44)
[2019-11-04] MEDS: VENLAFAXINE HCL 75 MG TAB PO SCH (07:44)
[2019-11-04] MEDS: GABAPENTIN 300 MG CAP PO SCH (07:44)
[2019-11-04] MEDS: INSULIN ASPART (NovoLOG) 100 UNIT/ML VIAL SQ SCH ×4 (07:45→13:03)
[2019-11-04] MEDS: BISACODYL 5 MG TABLET.DR PO SCH (07:45)
[2019-11-04] MEDS: PANTOPRAZOLE 40 MG TABLET PO SCH (07:46)
[2019-11-04] MEDS: METOPROLOL TARTRATE 25 MG TAB PO SCH (07:46)
[2019-11-04] MEDS: CEPHALEXIN 500 MG CAP PO SCH (07:46)
[2019-11-04] MEDS: NYSTATIN 100,000 UNIT/GM POWD 15 GM TOPICAL SCH (07:46)
[2019-11-04] MEDS: HEPARIN SODIUM,PORCINE 5,000 UNIT/ML 1 ML VIAL SQ SCH (07:46)
[2019-11-04] MEDS: SODIUM FERRIC GLUCONAT-SUCROSE 125 MG in SODIUM CHLORIDE 0.9% 100 ML IVPB SCH (10:09)
[2019-11-04 10:48] LABS: Free Kappa Lt Chain Qnt, Serum 9.14 mg/dL (0.33-1.94)
[2019-11-04 11:52] LABS: Glucose,Whole Blood 179 mg/dL (75-99)
[2019-11-04] MEDS: SODIUM CHLORIDE 0.9% 1,000 ML IV SCH (13:05)
[2019-11-04 13:43] VITALS: BP 107/65; PULSE 72; RESP 16; TEMP 97.7
--- NOTE | 2019-11-04 15:29 | P.PN ---
Subjective Progress Note Date: 11/04/19 Principal diagnosis: Frequent falls, UTI, anemia In follow-up today patient states feeling tired today, she had a lot of visitors yesterday for [place], she denies fevers, appetite is fair to good, no nausea or vomiting, she does have back discomfort from laying in bed, her pain regimen is adequate for management of the same, moderate fatigue, she denies any other symptoms. Objective - Vital Signs Vital signs: Vital Signs Temp 97.7 F 11/04/19 12:28 Pulse 72 11/04/19 12:28 Resp 16 11/04/19 12:28 BP 107/65 11/04/19 12:28 Pulse Ox 92 L 11/04/19 12:28 Intake & Output 11/03/19 11/04/19 11/04/19 18:59 06:59 18:59 Intake Total 540 400 540 Balance 540 400 540 Intake: Oral 540 400 540 Other: Voiding Method Bedside Commode Bedside Commode Diaper Diaper Incontinent Incontinent # Voids 1 2 1 # Bowel Movements 0 - Constitutional General appearance: Present: cooperative, no acute distress, obese - EENT Eyes: Present: anicteric sclerae, EOMI ENT: Present: hearing grossly normal - Respiratory Respiratory: bilateral: CTA - Cardiovascular Heart sounds: normal: S1, S2 - Peripheral edema leg Peripheral Edema: bilateral: Trace - Gastrointestinal General gastrointestinal: Present: soft Localized gastrointestinal: tender: RUQ (not now or progressive) - Integumentary Integumentary: Present: normal turgor, pale - Neurologic Neurologic: Present: CNII-XII intact - Musculoskeletal Musculoskeletal: Present: generalized weakness, strength equal bilaterally - Psychiatric Psychiatric: Present: A&O x's 3, appropriate affect, intact judgment & insight - Labs CBC & Chem 7: 11/02/19 07:43 11/02/19 07:43 Labs: Abnormal Lab Results - Last 24 Hours (Table) 11/02/19 11/03/19 11/03/19 Range/Units 07:46 15:53 16:55 POC Glucose (mg/dL) 138 H 194 H (75-99) mg/dL Free Brice LC, Quant 9.14 H (0.33-1.94) mg/dL Free Lambda LC, Quant 6.76 H (0.57-2.63) mg/dL 11/04/19 11/04/19 Range/Units 07:22 11:38 POC Glucose (mg/dL) 179 H 179 H (75-99) mg/dL Free Brice LC, Quant (0.33-1.94) mg/dL Free Lambda LC, Quant (0.57-2.63) mg/dL Microbiology - Last 24 Hours (Table) 10/29/19 05:51 Blood Culture - Final Blood No Growth after 144 hours Assessment and Plan (1) Thrombocytosis Status: Acute Priority: Medium Code(s): D47.3 - ESSENTIAL (HEMORRHAGIC) THROMBOCYTHEMIA SNOMED Code(s): 5061522 (2) Anemia Status: Acute Priority: High Code(s): D64.9 - ANEMIA, UNSPECIFIED SNOMED Code(s): 238178014 (3) Leukocytosis Status: Chronic Priority: Medium Code(s): D72.829 - ELEVATED WHITE BLOOD CELL COUNT, UNSPECIFIED SNOMED Code(s): 111014664 (4) HCC (hepatocellular carcinoma) Narrative/Plan: Patient follows with Cosmetologist/Oncologist at [facility]. 6 weeks ago she had her follow-up, no evidence of disease, she is now on annual checkup. She will continue to follow up there for her HCC. Status: Chronic Priority: Low Code(s): C22.0 - LIVER CELL CARCINOMA SNOMED Code(s): 754060637 Plan: Despite abnormal labs, no acute intervention is needed Parenteral iron ordered for iron deficiency, oral iron is also in patient's discharge med list. Still pending protein electrophoresis/immunofixation GI biopsies were negative for malignancy I will continue to follow until all of the lab results have come in. Follow-up with hematology for iron deficiency
[2019-11-07 12:32] LABS: Albumin 1.48 g/dL (3.80-4.90); Gamma Globulin 1.13 g/dL (0.70-1.50)
== END 2019-11-04 15:03 | DRG 689 ==
LOC: EC 18:04 → 6NMEDSUR 21:45 → OBSVTOIN 10-29 11:59
PROVIDERS: ADMIT Internal Medicine; ATTEND Internal Medicine
PROC: 0DB98ZX Excision of Duodenum, Via Natural or Artificial Opening Endoscopic, Diagnostic (ICD-10-PCS; principal; 2019-10-29)
PROC: 0DB78ZX Excision of Stomach, Pylorus, Via Natural or Artificial Opening Endoscopic, Diagnostic (ICD-10-PCS; 2019-10-29)
PROC: 0DB68ZX Excision of Stomach, Via Natural or Artificial Opening Endoscopic, Diagnostic (ICD-10-PCS; 2019-10-29)
DX: N39.0 Urinary tract infection, site not specified (principal); G93.41 Metabolic encephalopathy; E44.0 Moderate protein-calorie malnutrition; E87.1 Hypo-osmolality and hyponatremia; F33.9 Major depressive disorder, recurrent, unspecified; D63.8 Anemia in other chronic diseases classified elsewhere; E11.22 Type 2 diabetes mellitus with diabetic chronic kidney disease; F02.80 Dementia in other diseases classified elsewhere, unspecified severity, without behavioral disturbance, psychotic disturbance, mood disturbance, and anxiety; G30.9 Alzheimer's disease, unspecified; I13.10 Hypertensive heart and chronic kidney disease without heart failure, with stage 1 through stage 4 chronic kidney disease, or unspecified chronic kidney disease; N18.3 Chronic kidney disease, stage 3 (moderate); E11.42 Type 2 diabetes mellitus with diabetic polyneuropathy; B37.2 Candidiasis of skin and nail; B96.20 Unspecified Escherichia coli [E. coli] as the cause of diseases classified elsewhere; D46.9 Myelodysplastic syndrome, unspecified; D50.9 Iron deficiency anemia, unspecified; E66.01 Morbid (severe) obesity due to excess calories; E78.5 Hyperlipidemia, unspecified; E87.5 Hyperkalemia; F41.9 Anxiety disorder, unspecified; G25.81 Restless legs syndrome; G89.29 Other chronic pain; I25.10 Atherosclerotic heart disease of native coronary artery without angina pectoris; I25.2 Old myocardial infarction; I25.5 Ischemic cardiomyopathy; I48.0 Paroxysmal atrial fibrillation; J44.9 Chronic obstructive pulmonary disease, unspecified; K29.70 Gastritis, unspecified, without bleeding; K31.7 Polyp of stomach and duodenum; K44.9 Diaphragmatic hernia without obstruction or gangrene; N32.81 Overactive bladder; R29.6 Repeated falls; G47.33 Obstructive sleep apnea (adult) (pediatric); M51.36 Other intervertebral disc degeneration, lumbar region; R51 Headache; M25.552 Pain in left hip; M54.5 Low back pain; E11.65 Type 2 diabetes mellitus with hyperglycemia; S93.402A Sprain of unspecified ligament of left ankle, initial encounter; M25.562 Pain in left knee; E11.51 Type 2 diabetes mellitus with diabetic peripheral angiopathy without gangrene; R10.9 Unspecified abdominal pain; M48.00 Spinal stenosis, site unspecified; R32 Unspecified urinary incontinence; R45.1 Restlessness and agitation; Z68.37 Body mass index [BMI] 37.0-37.9, adult; Z66 Do not resuscitate; Z79.4 Long term (current) use of insulin; Z79.82 Long term (current) use of aspirin; Z79.899 Other long term (current) drug therapy; Z79.891 Long term (current) use of opiate analgesic; Z85.05 Personal history of malignant neoplasm of liver; Z86.73 Personal history of transient ischemic attack (TIA), and cerebral infarction without residual deficits; Z92.21 Personal history of antineoplastic chemotherapy; Z95.5 Presence of coronary angioplasty implant and graft; Z96.653 Presence of artificial knee joint, bilateral; Z88.8 Allergy status to other drugs, medicaments and biological substances; Z90.710 Acquired absence of both cervix and uterus; Z86.14 Personal history of Methicillin resistant Staphylococcus aureus infection; Z98.84 Bariatric surgery status; Z90.49 Acquired absence of other specified parts of digestive tract; W19.XXXA Unspecified fall, initial encounter; Z82.49 Family history of ischemic heart disease and other diseases of the circulatory system
CPT/HCPCS: 29515; 36415; 43239; 70450; 71046; 72125; 73502; 80048; 80053; 81001; 82272; 82306; 82607; 82728; 83540; 83550; 83605; 83615; 83735; 83883; 83921; 84165; 84484; 85025; 85045; 85610; 85730; 86334; 87040; 87077; 87086; 87186; 88305; 93005; 96361; 96365; 96375; 99285

== ENCOUNTER 2019-12-08 20:41 | Inpatient (IN) | payer MEDICARE, OTHER ==
[2019-12-08] MEDS ORDERED: ONDANSETRON 4 MG/2 ML VIAL IVP STA (20:58)
[2019-12-08] MEDS ORDERED: SODIUM CHLORIDE 0.9% 1,000 ML IV STA (20:58)
[2019-12-08] MEDS ORDERED: LORazepam 2 MG/ML INJ IV STA (21:42)
[2019-12-08 21:53] LABS: Basophils % (A) 0 %; Eosinophils % (A) 0 %; HCT 37.2 % (34.0-46.0); HGB 10.1 gm/dL (11.4-16.0); Hypochromasia Marked; Lymphocytes # (A) 1.3 k/uL (1.0-4.8); Lymphocytes % (A) 10 %; MCH 23.9 pg (25.0-35.0); MCHC 27.2 g/dL (31.0-37.0); MCV 87.9 fL (80.0-100.0); Mean Platelet Volume 9.2; Monocytes # (A) 0.4 k/uL (0-1.0); Monocytes % (A) 3 %; Neutrophils # (A) 11.4 k/uL (1.3-7.7); Neutrophils % (A) 86 %; Platelet Count 572 k/uL (150-450); RBC 4.23 m/uL (3.80-5.40); RDW 15.4 % (11.5-15.5); WBC 13.3 k/uL (3.8-10.6)
[2019-12-08 21:57] LABS: Appearance,Urine Clear (Clear); Bacteria,Urine Moderate /hpf; Bilirubin,Urine Negative (Negative); Blood,Urine Trace (Negative); Budding Yeast,Urine Few /hpf; Color,Urine Light Yellow; Glucose,Urine (UA) 4+ (Negative); Ketones,Urine Negative (Negative); Leukocyte Esterase,Urine Moderate (Negative); Mucus,Urine Rare /hpf; Nitrite,Urine Negative (Negative); Protein,Urine Negative (Negative); RBC,Urine 43 /hpf (0-5); Specific Gravity,Urine 1.028 (1.001-1.035); Squamous Epithelial Cell,Urine 3 /hpf (0-4); Urobilinogen,Urine <2.0 mg/dL (<2.0); WBC,Urine 4 /hpf (0-5)
[2019-12-08 22:15] LABS: AST 21 U/L (14-36); African American GFR (CKD) 71 (>60 ml/min/1.73 sqM); Albumin 2.7 g/dL (3.5-5.0); Alkaline Phosphatase 182 U/L (38-126); Anion Gap 17 mmol/L; Blood Urea Nitrogen 22 mg/dL (7-17); Calcium 8.7 mg/dL (8.4-10.2); Carbon Dioxide 21 mmol/L (22-30); Chloride 88 mmol/L (98-107); Creatine Kinase <20 U/L (30-135); Magnesium 1.8 mg/dL (1.6-2.3); Non-African American GFR(CKD) 61 (>60 ml/min/1.73 sqM); Sodium 126 mmol/L (137-145); Total Bilirubin 0.4 mg/dL (0.2-1.3)
--- NOTE | 2019-12-08 22:21 | XR ---
EXAMINATION TYPE: XR chest 2V DATE OF EXAM: 12/08/2019 COMPARISON: 10/28/2019 HISTORY: Cough and chest pain TECHNIQUE: FINDINGS: Heart is normal. Lungs are clear of infiltrate. There is no pleural effusion. There are lexa st leads. Bony thorax is intact. There is neural stimulator in the mid thoracic spine. IMPRESSION: No active cardiopulmonary disease. No change.
[2019-12-08 22:35] LABS: Glucose 1234 mg/dL (74-99)
[2019-12-08] MEDS ORDERED: SODIUM CHLORIDE 0.9% 1,000 ML IV ONE (22:36)
[2019-12-08 22:44] LABS: Glucose,Whole Blood >600 mg/dL (75-99)
[2019-12-08] MEDS ORDERED: INSULIN ASPART (NovoLOG) 100 UNIT/ML VIAL SQ STA (22:45)
[2019-12-08] MEDS ORDERED: cefTRIAXone IN SWFI 1,000 MG/10 ML SYRINGE IVP STA (22:50)
[2019-12-08 22:55] LABS: ALT 20 U/L (4-34)
--- NOTE | 2019-12-08 22:58 | ED ---
Nausea/Vomiting/Diarrhea HPI - General Chief complaint: Nausea/Vomiting/Diarrhea Stated complaint: hyperglycemia Time Seen by Provider: 12/08/19 20:50 Source: patient, family, EMS Mode of arrival: EMS Limitations: no limitations - History of Present Illness Initial comments: The patient is a 69-year-old female past history of A. fib, diabetes, hypertens ion and hyperlipidemia who presents to the emergency department with reported high blood sugars. Her daughter is at the bedside and provides the history. The patient does live with her daughter. They state that the patient has not been acting her normal self for the past day. They state that she's been very confused and has had 5 falls today. She was having nausea. No vomiting. They did check her blood sugars at home and they were extremely high. They then called EMS to bring the patient into the emergency department. They state that she did sustain blunt head trauma with the falls. No recent medication changes. She has been taking her medications as directed. She did have elevated blood sugars with a recent hospitalization that was secondary to urinary tract infection. They state that the patient has had multiple episodes of incontinence today. No rectal incontinence. She denies any new back pain. Does admit to chronic back pain. There is been no recorded fevers or chills. The patient has been able to ambulate, however week. She is not currently on any blood thinners. There are no other alleviating, precipitating or modifying factors - Related Data Home Medications Medication Instructions Recorded Confirmed Pantoprazole Sodium 40 mg PO DAILY 08/10/14 12/09/19 Solifenacin Succinate [Vesicare] 10 mg PO 08/10/14 12/09/19 Ondansetron [Zofran] 4 mg PO Q8H PRN 03/26/16 12/09/19 Gabapentin [Neurontin] 600 mg PO HS 04/02/16 12/09/19 Nystatin [Nystop] 1 applic TOPICAL DAILY PRN 02/14/17 12/09/19 Bisacodyl [Dulcolax] 5 mg PO QAM 05/18/17 12/09/19 Venlafaxine HCl [Effexor] 75 mg PO QAM 05/18/17 12/09/19 Venlafaxine HCl [Effexor] 150 mg PO HS 05/18/17 12/09/19 Aspirin [Adult Low Dose Aspirin EC] 81 mg PO DAILY 11/05/18 01/30/20 rOPINIRole HCL [Requip] 0.25 mg PO HS 06/06/19 12/09/19 Metoprolol Tartrate 25 mg PO BID 10/07/19 12/09/19 Gabapentin [Neurontin] 300 mg PO QAM 10/28/19 12/09/19 Meclizine HCl 25 mg PO DAILY PRN 10/28/19 12/09/19 INSULIN ASPART (NovoLOG) [NovoLOG 5 unit SQ AC-TID 12/09/19 12/09/19 (formulary)] INSULIN ASPART (NovoLOG) [NovoLOG See Protocol SQ ACHS 12/09/19 12/09/19 (formulary)] Insulin Detemir [Levemir Flextouch] 14 units SQ AC-BRKFST 12/09/19 12/09/19 Insulin Detemir [Levemir Flextouch] 16 units SQ HS 12/09/19 12/09/19 Previous Rx's Medication Instructions Recorded Atorvastatin [Lipitor] 40 mg PO HS #30 tablet 04/06/14 amLODIPine [Norvasc] 5 mg PO DAILY #30 tab 04/06/14 fentaNYL 50MCG/HR PATCH [Duragesic 1 patch TRANSDERM Q72H patch 11/02/19 50MCG/HR] Cefuroxime [Ceftin] 250 mg PO BID #14 tab 12/12/19 Allergies Allergy/AdvReac Type Severity Reaction Status Date / Time metformin HCl Allergy "kidneys Verified 10/28/19 21:52 [From Glucophage] shut down" Review of Systems ROS Statement: Those systems with pertinent positive or pertinent negative responses have been documented in the HPI. ROS Other: All systems not noted in ROS Statement are negative. Past Medical History Past Medical History: Atrial Fibrillation, Cancer, CVA/TIA, Diabetes Mellitus, Hyperlipidemia, Hypertension Additional Past Medical History / Comment(s): Hepatocellular carcinoma (in remission), had one dose of chemo 2014, TIA X4, hiatal hernia, spinal stenosis, degenerative disc disease involving L3 and L4, diabetic peripheral neuropathy, hyperactive bladder, history of septic left knee joint post arthroplasty. restless leg syndrome. History of Any Multi-Drug Resistant Organisms: MRSA Date of last positivie culture/infection: 2010 MDRO Source:: Left knee Past Surgical History: Adenoidectomy, Bariatric Surgery, Cholecystectomy, Heart Catheterization With Stent, Hernia Repair, Hysterectomy, Joint Replacement, Orthopedic Surgery, Tonsillectomy Additional Past Surgical History / Comment(s): Lap band placed in 2003, prolapsed & removed in 2005, neuro stimulator in back, one stent to LAD, left knee arthroscopic surgery, right total knee arthroplasty, left total knee arthroplasty 10/01/2011, repair of quadriceps tendon 08/21/2011, left knee patellar tendon repair 09/24/2011, removal of the hardware of the left total knee arthroplasty with implantation of the antibiotic spacer October 08 2011, total left knee hardware replacement in May 2012,. trigger finger, left hand in 2003 with subsequent reversal in 2005. Uses a walker or wheelchair Past Anesthesia/Blood Transfusion Reactions: No Reported Reaction Date of Last Stent Placement:: 05/17/2010 Past Psychological History: Anxiety, Depression Smoking Status: Never smoker Past Alcohol Use History: None Reported Past Drug Use History: None Reported - Past Family History Mother Family Medical History: Congestive Heart Failure (CHF) Father Family Medical History: Myocardial Infarction ([place]) General Exam Limitations: no limitations General appearance: alert, anxious Head exam: Present: atraumatic, normocephalic Eye exam: Present: PERRL, EOMI Neck exam: Absent: tenderness, meningismus Respiratory exam: Present: normal lung sounds bilaterally. Absent: wheezes, rales, rhonchi Cardiovascular Exam: Present: regular rate, normal rhythm GI/Abdominal exam: Present: soft, normal bowel sounds. Absent: distended, tenderness, guarding, rebound, rigid Extremities exam: Present: normal inspection, full ROM, normal capillary refill. Absent: tenderness, pedal edema, joint swelling, calf tenderness Neurological exam: Present: altered, CN II-XII intact Psychiatric exam: Present: normal mood, agitated Skin exam: Present: warm, dry, intact, normal color. Absent: rash Course Vital Signs 12/08/19 12/09/19 12/09/19 20:47 00:30 01:00 Temperature 96.9 F L Pulse Rate 86 73 78 Pulse Rate [ Field Care Manager ] Respiratory 20 16 18 Rate Blood Pressure 134/78 131/61 132/69 Blood Pressure [Left Arm] O2 Sat by Pulse 96 96 96 Oximetry 12/09/19 12/09/19 12/09/19 02:00 03:00 03:30 Temperature 98.0 F Pulse Rate 79 80 Pulse Rate [ Field Care Manager ] Respiratory 18 16 Rate Blood Pressure 134/61 118/60 Blood Pressure [Left Arm] O2 Sat by Pulse 97 95 Oximetry 12/09/19 12/09/19 12/09/19 04:00 05:00 06:00 Temperature Pulse Rate 81 77 85 Pulse Rate [ Field Care Manager ] Respiratory 16 16 16 Rate Blood Pressure 117/69 117/88 121/76 Blood Pressure [Left Arm] O2 Sat by Pulse 96 96 96 Oximetry 12/09/19 12/09/19 12/09/19 07:27 08:00 09:00 Temperature 97.8 F 98.5 F Pulse Rate 87 Pulse Rate [ 85 93 Field Care Manager ] Respiratory 20 18 16 Rate Blood Pressure 132/83 Blood Pressure 145/84 159/75 [Left Arm] O2 Sat by Pulse 93 L 92 L 92 L Oximetry 12/09/19 10:05 Temperature Pulse Rate Pulse Rate [ 91 Field Care Manager ] Respiratory 16 Rate Blood Pressure Blood Pressure 153/66 [Left Arm] O2 Sat by Pulse Oximetry Medical Decision Making - Medical Decision Making Upon arrival the patient was placed into room 4. A thorough history and physical exam was performed. Peripheral IV was established. The patient was given a liter bolus of normal saline and 4 mg of Zofran. Bedside Accu-Chek was performed and was read as high. I did recommend laboratory studies as well as a chest x-ray and a CT of the patient's abdomen and pelvis. Laboratory studies demonstrate a white blood cell count of 13.3. Platelets 572. Sodium is 126. This is a pseudohyponatremia because of the patient's elevated glucose at 1234. Potassium is 6. Anion gap 17. CO2 is 21. Creatinine 0.4 lactic acid markedly elevated at 7.7. Urinalysis shows trace blood, moderate leukocyte esterase, 43 red blood cells, moderate bacteria and few budding yeast. Acetone is negative. Influenza A and B are not detected. I did obtain blood cultures the patient was given a dose of Rocephin as her previous urine culture was [place] sensitive. I did give the patient a second liter of normal saline. Recheck of her blood sugar demonstrates a glucose greater than 600. Because of this I did give the patient a 10 unit bolus of insulin and started her on an insulin drip. I will draw lites every 4 hours and Accu-Chek every hour. Chest x-ray demonstrated no active cardiopulmonary disease. Head and cervical spine CT was performed because the patient's multiple falls which demonstrates no acute fractures or intracranial abnormality. CT of the patient's abdomen and pelvis was performed because of her nausea and vomiting for which she did have an episode of vomiting upon arrival. CT demonstrates a large left-sided renal subcapsular chronic hematoma and perinephric hematoma. Decreased left renal function. Mass effect and displacement of the left kidney. I called and discussed the case with Dr. Teague as the patient has had multiple falls I thought may be secondary to trauma. She states that urology would be the one to consult on the patient for this concern. Because of this I did call discuss the case with Dr. De La Rosa who stated that the hemoglobins should be trended and it was okay to place the patient on the floor. I admitted the patient to Dr. Burnham after I discussed the case with him. I also talked to Dr. Armstrong after do feel that the patient would benefit being in the ICU. The patient was in agreement with the treatment plan. She is resting comfortably in hemodynamically stable condition awaiting a bed on the floor - Lab Data Result diagrams: 12/12/19 06:21 12/12/19 06:21 Lab Results 12/08/19 12/08/19 12/08/19 Range/Units 21:22 21:22 21:22 WBC 13.3 H (3.8-10.6) k/uL RBC 4.23 (3.80-5.40) m/uL Hgb 10.1 L (11.4-16.0) gm/dL Hct 37.2 (34.0-46.0) % MCV 87.9 (80.0-100.0) fL MCH 23.9 L (25.0-35.0) pg MCHC 27.2 L (31.0-37.0) g/dL RDW 15.4 (11.5-15.5) % Plt Count 572 H (150-450) k/uL Neutrophils % 86 % Lymphocytes % 10 % Monocytes % 3 % Eosinophils % 0 % Basophils % 0 % Neutrophils # 11.4 H (1.3-7.7) k/uL Lymphocytes # 1.3 (1.0-4.8) k/uL Monocytes # 0.4 (0-1.0) k/uL Eosinophils # 0.0 (0-0.7) k/uL Basophils # 0.0 (0-0.2) k/uL Hypochromasia Marked Sodium 126 L (137-145) mmol/L Potassium 6.0 H (3.5-5.1) mmol/L Chloride 88 L (98-107) mmol/L Carbon Dioxide 21 L (22-30) mmol/L Anion Gap 17 mmol/L BUN 22 H (7-17) mg/dL Creatinine 0.94 (0.52-1.04) mg/dL Est GFR (CKD-EPI)AfAm 71 (>60 ml/min/1.73 sqM) Est GFR (CKD-EPI)NonAf 61 (>60 ml/min/1.73 sqM) Glucose 1234 H* (74-99) mg/dL POC Glucose (mg/dL) (75-99) mg/dL POC Glu Literacy Teacher ID Lactic Ac Sepsis Rflx Plasma Lactic Acid Fabio 7.7 H* (0.7-2.0) mmol/L Calcium 8.7 (8.4-10.2) mg/dL Magnesium 1.8 (1.6-2.3) mg/dL Total Bilirubin 0.4 (0.2-1.3) mg/dL AST 21 (14-36) U/L ALT 20 (4-34) U/L Alkaline Phosphatase 182 H (38-126) U/L Creatine Kinase <20 L (30-135) U/L Total Protein 6.0 L (6.3-8.2) g/dL Albumin 2.7 L (3.5-5.0) g/dL Lipase 14 L (23-300) U/L TSH 2.590 (0.465-4.680) mIU/L Urine Color Urine Appearance (Clear) Urine pH (5.0-8.0) Ur Specific [place] (1.001-1.035) Urine Protein (Negative) Urine Glucose (UA) (Negative) Urine Ketones (Negative) Urine Blood (Negative) Urine Nitrite (Negative) Urine Bilirubin (Negative) Urine Urobilinogen (<2.0) mg/dL Ur Leukocyte Esterase (Negative) Urine RBC (0-5) /hpf Urine WBC (0-5) /hpf Ur Squamous Epith Cells (0-4) /hpf Urine Bacteria (None) /hpf Urine Mucus (None) /hpf Urine Yeast (Budding) (None) /hpf Acetone, Qual Negative (Negative) Influenza Type A RNA (Not Detectd) Influenza Type B (PCR) (Not Detectd) 12/08/19 12/08/19 12/08/19 Range/Units 21:22 21:22 22:36 WBC (3.8-10.6) k/uL RBC (3.80-5.40) m/uL Hgb (11.4-16.0) gm/dL Hct (34.0-46.0) % MCV (80.0-100.0) fL MCH (25.0-35.0) pg MCHC (31.0-37.0) g/dL RDW (11.5-15.5) % Plt Count (150-450) k/uL Neutrophils % % Lymphocytes % % Monocytes % % Eosinophils % % Basophils % % Neutrophils # (1.3-7.7) k/uL Lymphocytes # (1.0-4.8) k/uL Monocytes # (0-1.0) k/uL Eosinophils # (0-0.7) k/uL Basophils # (0-0.2) k/uL Hypochromasia Sodium (137-145) mmol/L Potassium (3.5-5.1) mmol/L Chloride (98-107) mmol/L Carbon Dioxide (22-30) mmol/L Anion Gap mmol/L BUN (7-17) mg/dL Creatinine (0.52-1.04) mg/dL Est GFR (CKD-EPI)AfAm (>60 ml/min/1.73 sqM) Est GFR (CKD-EPI)NonAf (>60 ml/min/1.73 sqM) Glucose (74-99) mg/dL POC Glucose (mg/dL) (75-99) mg/dL POC Glu Literacy Teacher ID Lactic Ac Sepsis Rflx Y Plasma Lactic Acid Fabio (0.7-2.0) mmol/L Calcium (8.4-10.2) mg/dL Magnesium (1.6-2.3) mg/dL Total Bilirubin (0.2-1.3) mg/dL AST (14-36) U/L ALT (4-34) U/L Alkaline Phosphatase (38-126) U/L Creatine Kinase (30-135) U/L Total Protein (6.3-8.2) g/dL Albumin (3.5-5.0) g/dL Lipase (23-300) U/L TSH (0.465-4.680) mIU/L Urine Color Light Yellow Urine Appearance Clear (Clear) Urine pH 6.0 (5.0-8.0) Ur Specific [place] 1.028 (1.001-1.035) Urine Protein Negative (Negative) Urine Glucose (UA) 4+ H (Negative) Urine Ketones Negative (Negative) Urine Blood Trace H (Negative) Urine Nitrite Negative (Negative) Urine Bilirubin Negative (Negative) Urine Urobilinogen <2.0 (<2.0) mg/dL Ur Leukocyte Esterase Moderate H (Negative) Urine RBC 43 H (0-5) /hpf Urine WBC 4 (0-5) /hpf Ur Squamous Epith Cells 3 (0-4) /hpf Urine Bacteria Moderate H (None) /hpf Urine Mucus Rare H (None) /hpf Urine Yeast (Budding) Few H (None) /hpf Acetone, Qual (Negative) Influenza Type A RNA Not Detected (Not Detectd) Influenza Type B (PCR) Not Detected (Not Detectd) 12/08/19 12/09/19 Range/Units 22:42 00:19 WBC (3.8-10.6) k/uL RBC (3.80-5.40) m/uL Hgb (11.4-16.0) gm/dL Hct (34.0-46.0) % MCV (80.0-100.0) fL MCH (25.0-35.0) pg MCHC (31.0-37.0) g/dL RDW (11.5-15.5) % Plt Count (150-450) k/uL Neutrophils % % Lymphocytes % % Monocytes % % Eosinophils % % Basophils % % Neutrophils # (1.3-7.7) k/uL Lymphocytes # (1.0-4.8) k/uL Monocytes # (0-1.0) k/uL Eosinophils # (0-0.7) k/uL Basophils # (0-0.2) k/uL Hypochromasia Sodium (137-145) mmol/L Potassium (3.5-5.1) mmol/L Chloride (98-107) mmol/L Carbon Dioxide (22-30) mmol/L Anion Gap mmol/L BUN (7-17) mg/dL Creatinine (0.52-1.04) mg/dL Est GFR (CKD-EPI)AfAm (>60 ml/min/1.73 sqM) Est GFR (CKD-EPI)NonAf (>60 ml/min/1.73 sqM) Glucose (74-99) mg/dL POC Glucose (mg/dL) >600 H >600 H (75-99) mg/dL POC Glu Literacy Teacher ID Yandy Romero Shamiya, A Lactic Ac Sepsis Rflx Plasma Lactic Acid Fabio (0.7-2.0) mmol/L Calcium (8.4-10.2) mg/dL Magnesium (1.6-2.3) mg/dL Total Bilirubin (0.2-1.3) mg/dL AST (14-36) U/L ALT (4-34) U/L Alkaline Phosphatase (38-126) U/L Creatine Kinase (30-135) U/L Total Protein (6.3-8.2) g/dL Albumin (3.5-5.0) g/dL Lipase (23-300) U/L TSH (0.465-4.680) mIU/L Urine Color Urine Appearance (Clear) Urine pH (5.0-8.0) Ur Specific [place] (1.001-1.035) Urine Protein (Negative) Urine Glucose (UA) (Negative) Urine Ketones (Negative) Urine Blood (Negative) Urine Nitrite (Negative) Urine Bilirubin (Negative) Urine Urobilinogen (<2.0) mg/dL Ur Leukocyte Esterase (Negative) Urine RBC (0-5) /hpf Urine WBC (0-5) /hpf Ur Squamous Epith Cells (0-4) /hpf Urine Bacteria (None) /hpf Urine Mucus (None) /hpf Urine Yeast (Budding) (None) /hpf Acetone, Qual (Negative) Influenza Type A RNA (Not Detectd) Influenza Type B (PCR) (Not Detectd) - EKG Data EKG Comments: EKG demonstrates a normal sinus rhythm with ventricular rate of 82. MT interval 160. QRS E4. QTC 467. Q wave in lead 3. No acute ST segment elevations or depressions concerning for ischemic changes. There is significant baseline artifact in V6. Critical Care Time Critical Care Time: Yes Critical Care Time: 35 minutes Disposition Clinical Impression: HHNC (hyperglycemic hyperosmolar nonketotic coma), Hyperglycemia, Hematoma of kidney, Hyperkalemia, Fall, Candidal intertrigo, Vomiting, Abdominal pain Disposition: ADMITTED IP TO THIS [facility] Condition: Serious Is patient prescribed a controlled substance at d/c from ED?: No Decision to Admit Reason: Admit from EC Decision Date: 12/09/19 Decision Time: 00:17
--- NOTE | 2019-12-08 23:23 | CT ---
EXAMINATION TYPE: CT brain ashwini biggs con DATE OF EXAM: 12/08/2019 COMPARISON: 10/28/2019 HISTORY: ams Headache. Neck pain. CT DLP: 1367.6 mGycm Automated exposure control for dose reduction was used. Multiple axial sections were obtained of the brain without contrast. Multiple axial sections were obt ained from the skull base to T1 vertebra without contrast. FINDINGS: There is cerebral cortical atrophy. There is patchy hypodensity in the periventricular white matter a nd more severe around the frontal horns of the lateral ventricles. The calvarium is intact. Skull bas e appears intact. The cervical vertebra show some straightening. There is moderate narrowing of the disc spaces at C4-5 and C5-6 and C6-7. There is mild hypertrophic multilevel facet arthropathy. The cervical basilar rel ationships is normal. IMPRESSION: Multilevel spondylotic changes in the lower cervical spine with some straightening. No change. Cerebral atrophy and chronic small vessel ischemia. No acute intracranial abnormality. No change.
--- NOTE | 2019-12-08 23:31 | CT ---
EXAMINATION TYPE: CT abdomen pelvis w con DATE OF EXAM: 12/08/2019 COMPARISON: 10/07/2019 HISTORY: freq falls Pain CT DLP: 2125.5 mGycm Automated exposure control for dose reduction was used. CONTRAST: Performed with IV Contrast, patient injected with 100 mL of Isovue 300. Multiple axial sections were obtained from the diaphragm to the floor the pelvis with intravenous con trast. There is some patchy atelectasis at the lung bases. Heart is enlarged. There is no pleural effusion. There is no pericardial effusion. There are clips from cholecystectomy. Liver shows no focal defect. Spleen is intact. There is no panc reatic mass. The bile ducts are not dilated. Stomach is intact. There is anterior displacement of the left kidney. There is large low density fluid collection involv ing the posterior left kidney that measures up to almost 6 cm in thickness related to large subcapsul ar hematoma. There is also some higher attenuation fluid in the perinephric space lateral to the left kidney. The right kidney has fairly normal size and contour. The delayed images show normal excretio n on the right side and no significant pylelogram On the left side. There is decreased left renal cortical function. There is no adrenal mass. There is no retroperitoneal adenopathy. Ureters are not dilated. Bladder di stends smoothly. There is no inguinal hernia. There is no evidence of free air. There is no bowel obs truction. There is no mesenteric edema. The lumbar vertebra have normal alignment. There is disc spac e narrowing throughout the lumbar spine. Bony pelvis is intact. There is implant in the lower thoraci c spine. IMPRESSION: Large left side renal subcapsular chronic hematoma and perinephric hematoma. Decreased left renal fun ction. Mass effect and displacement of the left kidney. No fracture seen. Minimal atelectasis at the lung bases. This exam was discussed with ER physician at 11:30 PM.
[2019-12-09] MEDS ORDERED: NALOXONE 0.4 MG/ML 1 ML VIAL IV PRN (00:19)
[2019-12-09] MEDS ORDERED: ONDANSETRON 4 MG/2 ML VIAL IVP PRN (00:19)
[2019-12-09] MEDS: SODIUM CHLORIDE 0.9% 1,000 ML IV SCH ×4 (00:28→18:05)
[2019-12-09 00:30] LABS: Glucose,Whole Blood >600 mg/dL (75-99)
[2019-12-09] MEDS: INSULIN REGULAR 100 UNIT in SODIUM CHLORIDE 0.9% 100 ML IV SCH ×3 (00:36→20:01)
[2019-12-09 02:51] LABS: Glucose,Whole Blood >600 mg/dL (75-99)
[2019-12-09 02:54] LABS: Calcium 8.7 mg/dL (8.4-10.2); Potassium 4.4 mmol/L (3.5-5.1)
[2019-12-09 04:08] LABS: Glucose,Whole Blood 442 mg/dL (75-99)
[2019-12-09 05:23] LABS: Glucose,Whole Blood 366 mg/dL (75-99)
[2019-12-09 05:30] LABS: Potassium 4.6 mmol/L (3.5-5.1)
[2019-12-09 06:09] LABS: Glucose,Whole Blood 199 mg/dL (75-99)
[2019-12-09 07:23] LABS: Glucose,Whole Blood 150 mg/dL (75-99)
[2019-12-09 07:53] LABS: Glucose,Whole Blood 130 mg/dL (75-99)
[2019-12-09 08:59] LABS: Glucose,Whole Blood 183 mg/dL (75-99)
[2019-12-09 10:02] LABS: Glucose,Whole Blood 247 mg/dL (75-99)
[2019-12-09 10:10] LABS: Potassium 4.6 mmol/L (3.5-5.1)
--- NOTE | 2019-12-09 10:36 | P.CNPUL ---
History of Present Illness Consult date: 12/09/19 Chief complaint: Altered mental status History of present illness: 69-year-old female one of Dr. Burnham with a previous medical history significant for coronary artery disease status post PCI and stent placement of the LAD back in 2009 with ischemic cardiomyopathy, hypertension and hypertensive heart disease with left ventricular hypertrophy, chronic kidney disease stage III, obstructive sleep apnea, CVA, paroxysmal atrial fibrillation, septic left knee arthroplasty, liver/hepatocellular carcinoma cancer in the care of [facility] , DM type 2 maintained on insulin, hyperlipidemia, hypertension, spinal stenosis, restless leg syndrome, diabetic peripheral neuropathy, hyperactive bladder, previous bouts of septic shock related to UTI and previous history of MRSA infection of the left knee The patient came into the emergency department yesterday because of hyperglycemia and altered mentation. The patient was quite lethargic and somewhat confused and she had frequent falls at home. She was having some nausea without any emesis. Blood sugar at home was extremely high. EMS was called to the scene. Apparently there was a blunt trauma to the head with a recurrent falls that the patient had at home. No recent medication change and the patient is supposed to be on Levemir insulin 16 units at bedtime. She is al so supposed to be on 5 units of NovoLog with meals and a sliding scale coverage. No fever. No chills. No night sweats. Her presentation was consistent with hyperosmolar nonketotic's coma. Her sodium was 11/29/2015 time of admission and this is consistent with pseudo-hyponatremia. His anion gap was 17 it immediately dropped down to 11 and then down to 8. The glucose was 1234 and this was treated appropriately with insulin drip. Lactic acid level was at 7.7 and currently down to 1.3. Overnight, the patient received IV fluids and she was given a total of 2 L and currently she is on 0.9 at the rate of 1 50 mL an hour. She was given insulin drip she is currently running at 6 units an hour. As mentioned, she has a mild anion gap is closed is down to 8. Lactic acid levels have normalized. The chest x-ray was within normal. CAT scan of the abdomen was done and there was no evidence of any hepatic masses. 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 She is currently in normal sinus rhythm. She is on room air oxygen. She is resting comfortably in bed. She is very much arousable. She will follow commands and answer questions appropriately. She did have some clear liquid diet earlier this morning and she hasn't had a full meal yet. The UA is not showing any signs of an infection. She has elevated urine sugars consistent wi th her poorly controlled diabetes mellitus. Influenza screen was negative. TSH is normal. Lipase is normal. CPK is less than 20. Past Medical History Past Medical History: Atrial Fibrillation, Cancer, CVA/TIA, Diabetes Mellitus, Hyperlipidemia, Hypertension Additional Past Medical History / Comment(s): Hepatocellular carcinoma (in remission), had one dose of chemo 2015, TIA X4, hiatal hernia, spinal stenosis, degenerative disc disease involving L3 and L4, diabetic peripheral neuropathy, hyperactive bladder, history of septic left knee joint post arthroplasty. restless leg syndrome. History of Any Multi-Drug Resistant Organisms: MRSA Date of last positivie culture/infection: 2010 MDRO Source:: Left knee Past Surgical History: Adenoidectomy, Bariatric Surgery, Cholecystectomy, Heart Catheterization With Stent, Hernia Repair, Hysterectomy, Joint Replacement, Orthopedic Surgery, Tonsillectomy Additional Past Surgical History / Comment(s): Lap band placed in 2003, prolapsed & removed in 2005, neuro stimulator in back, one stent to LAD, left knee arthroscopic surgery, right total knee arthroplasty, left total knee arthroplasty 10/01/2011, repair of quadriceps tendon 08/21/2011, left knee lynne lar tendon repair 09/24/2011, removal of the hardware of the left total knee arthroplasty with implantation of the antibiotic spacer October 08 2011, total left knee hardware replacement in May 2012,. trigger finger, left hand in 2003 with subsequent reversal in 2005. Uses a walker or wheelchair Past Anesthesia/Blood Transfusion Reactions: No Reported Reaction Date of Last Stent Placement:: 05/17/2010 Past Psychological History: Anxiety, Depression Smoking Status: Never smoker Past Alcohol Use History: None Reported Past Drug Use History: None Reported - Past Family History Mother Family Medical History: Congestive Heart Failure (CHF) Father Family Medical History: Myocardial Infarction (LA) Medications and Allergies Home Medications Medication Instructions Recorded Confirmed Type RX: Atorvastatin [Lipitor] 40 mg PO HS #30 tablet 04/06/14 12/09/19 Rx RX: amLODIPine [Norvasc] 5 mg PO DAILY #30 tab 04/06/14 12/09/19 Rx RX: Pantoprazole Sodium 40 mg PO DAILY 08/10/14 12/09/19 History RX: Solifenacin Succinate 10 mg PO HS 08/10/14 12/09/19 History [Vesicare] RX: Ondansetron [Zofran] 4 mg PO Q8H PRN 03/26/16 12/09/19 History RX: Gabapentin [Neurontin] 600 mg PO HS 04/02/16 12/09/19 History RX: Nystatin [Nystop] 1 applic TOPICAL DAILY PRN 02/14/17 12/09/19 History RX: Bisacodyl [Dulcolax] 5 mg PO QAM 05/18/17 12/09/19 History RX: Venlafaxine HCl [Effexor] 75 mg PO QAM 05/18/17 12/09/19 History RX: Venlafaxine HCl [Effexor] 150 mg PO HS 05/18/17 12/09/19 History RX: Aspirin [Adult Low Dose 81 mg PO DAILY 09/14/18 12/09/19 History Aspirin EC] RX: rOPINIRole HCL [Requip] 0.25 mg PO HS 06/06/19 12/09/19 History RX: Metoprolol Tartrate 25 mg PO BID 10/07/19 12/09/19 History RX: Gabapentin [Neurontin] 300 mg PO QAM 10/28/19 12/09/19 History RX: Meclizine HCl 25 mg PO DAILY PRN 10/28/19 12/09/19 History RX: fentaNYL 50MCG/HR PATCH 1 patch TRANSDERM Q72H patch 11/02/19 12/09/19 Rx [Duragesic 50MCG/HR] Insulin Detemir [Levemir Flextouch] 14 units SQ AC-BRKFST 12/09/19 12/09/19 History Insulin Detemir [Levemir Flextouch] 16 units SQ HS 12/09/19 12/09/19 History RX: INSULIN ASPART (NovoLOG) 5 unit SQ AC-TID 12/09/19 12/09/19 History [NovoLOG (formulary)] RX: INSULIN ASPART (NovoLOG) See Protocol SQ ACHS 12/09/19 12/09/19 History [NovoLOG (formulary)] Allergies Allergy/AdvReac Type Severity Reaction Status Date / Time metformin HCl Allergy "kidneys Verified 10/28/19 21:52 [From Glucophage] shut down" Physical Exam Vitals: Vital Signs Temp Pulse Pulse Resp BP BP Pulse Ox 12/09/19 10:05 91 16 153/66 12/09/19 09:00 93 16 159/75 92 L 12/09/19 08:00 98.5 F 85 18 145/84 92 L 12/09/19 07:27 97.8 F 87 20 132/83 93 L 12/09/19 06:00 85 16 121/76 96 12/09/19 05:00 77 16 117/88 96 12/09/19 04:00 81 16 117/69 96 12/09/19 03:30 98.0 F 12/09/19 03:00 80 16 118/60 95 12/09/19 02:00 79 18 134/61 97 12/09/19 01:00 78 18 132/69 96 12/09/19 00:30 73 16 131/61 96 12/08/19 20:47 96.9 F L 86 20 134/78 96 Intake and Output 12/08/19 12/09/19 12/09/19 22:59 06:59 14:59 Intake Total 98.635 605.959 Balance 98.635 605.959 Intake: Intake, IV Titration 98.635 605.959 Amount Insulin Regular 100 unit 98.635 5.959 In Sodium Chloride 0.9% 100 ml @ Titrate IV .Q0M [facility] Rx#:[id number] Sodium Chloride 0.9% 1, 600 000 ml @ 150 mls/hr IV . Q6H40M [facility] Rx#:[id number] Other: Weight 99.79 kg Morbidly obese, calm and comfortable, not consistent distress. My normal had neck is supple and short and there is significant crowding of posterior pharynx. No goiter or neck masses.Lungs were clear to auscultation and percussion, and with normal diaphragmatic excursion. No wheezes or rales were noted. My normal heart abdomen is obese and the patient's organs cannot be accurately palpated. There is no direct tenderness. No rebound tenderness. No guarding. Extremities reveal trace edema lower eczematous bilaterally. There is no cyanosis or clubbing. Neurologically she is awake and she is following commands and answering questions and she is moving all 4 extremities without any limitation.Examination of the skin revealed no evidence of significant rashes, suspicious appearing nevi or other concerning lesions. The oral mucous membranes are dry. Neurologically she is arousable and she follows simple commands and the neurologic exam is nonfocal. Results - Laboratory Findings CBC and BMP: 12/08/19 21:22 12/09/19 08:10 Abnormal lab findings: Abnormal Labs 12/08/19 12/08/19 12/08/19 21:22 21:22 21:22 WBC 13.3 H Hgb 10.1 L MCH 23.9 L MCHC 27.2 L Plt Count 572 H Neutrophils # 11.4 H Sodium 126 L Potassium 6.0 H Chloride 88 L Carbon Dioxide 21 L BUN 22 H Glucose 1234 H* POC Glucose (mg/dL) Plasma Lactic Acid Fabio 7.7 H* Alkaline Phosphatase 182 H Creatine Kinase <20 L Total Protein 6.0 L Albumin 2.7 L Lipase 14 L Urine Glucose (UA) Urine Blood Ur Leukocyte Esterase Urine RBC Urine Bacteria Urine Mucus Urine Yeast (Budding) 12/08/19 12/08/19 12/09/19 21:22 22:42 00:19 WBC Hgb MCH MCHC Plt Count Neutrophils # Sodium Potassium Chloride Carbon Dioxide BUN Glucose POC Glucose (mg/dL) >600 H >600 H Plasma Lactic Acid Fabio Alkaline Phosphatase Creatine Kinase Total Protein Albumin Lipase Urine Glucose (UA) 4+ H Urine Blood Trace H Ur Leukocyte Esterase Moderate H Urine RBC 43 H Urine Bacteria Moderate H Urine Mucus Rare H Urine Yeast (Budding) Few H 12/09/19 12/09/19 12/09/19 02:20 02:20 02:44 WBC Hgb MCH MCHC Plt Count Neutrophils # Sodium 133 L Potassium Chloride 97 L Carbon Dioxide BUN 20 H Glucose 646 H* POC Glucose (mg/dL) >600 H Plasma Lactic Acid Fabio 4.7 H* Alkaline Phosphatase Creatine Kinase Total Protein Albumin Lipase Urine Glucose (UA) Urine Blood Ur Leukocyte Esterase Urine RBC Urine Bacteria Urine Mucus Urine Yeast (Budding) 12/09/19 12/09/19 12/09/19 03:59 05:10 05:12 WBC Hgb MCH MCHC Plt Count Neutrophils # Sodium 136 L Potassium Chloride Carbon Dioxide BUN Glucose POC Glucose (mg/dL) 442 H 366 H Plasma Lactic Acid Fabio Alkaline Phosphatase Creatine Kinase Total Protein Albumin Lipase Urine Glucose (UA) Urine Blood Ur Leukocyte Esterase Urine RBC Urine Bacteria Urine Mucus Urine Yeast (Budding) 12/09/19 12/09/19 12/09/19 06:08 07:17 07:48 WBC Hgb MCH MCHC Plt Count Neutrophils # Sodium Potassium Chloride Carbon Dioxide BUN Glucose POC Glucose (mg/dL) 199 H 150 H 130 H Plasma Lactic Acid Fabio Alkaline Phosphatase Creatine Kinase Total Protein Albumin Lipase Urine Glucose (UA) Urine Blood Ur Leukocyte Esterase Urine RBC Urine Bacteria Urine Mucus Urine Yeast (Budding) 12/09/19 12/09/19 08:56 09:58 WBC Hgb MCH MCHC Plt Count Neutrophils # Sodium Potassium Chloride Carbon Dioxide BUN Glucose POC Glucose (mg/dL) 183 H 247 H Plasma Lactic Acid Fabio Alkaline Phosphatase Creatine Kinase Total Protein Albumin Lipase Urine Glucose (UA) Urine Blood Ur Leukocyte Esterase Urine RBC Urine Bacteria Urine Mucus Urine Yeast (Budding) - Diagnostic Findings Chest x-ray: image reviewed Assessment and Plan Plan: 1 change in mental status secondary to hyperosmolar nonketotic coma with elevated blood sugars, improved with fluids and insulin therapy. The patient has been maintained on Levemir much 14 units in the morning and 16 units at nighttime and addition to NovoLog with meals 5 units and the scale insulin on outpatient basis . 2 acute lactic acidosis, recovered 3 Liver cancer/hepatocellular carcinoma status post localized chemotherapy 4 morbid obesity 5 obstructive sleep apnea 6 diabetes mellitus, type II 7 diabetic peripheral neuropathy 8 hypertension 9 previous bariatric surgery in the form of lap and that was subsequently removed 10 anxiety/depression 11 chronic atrial fibrillation 12 coronary artery disease with previous coronary intervention involving the LAD along with stenting 13 Lactic acidosis, mild 14 candidal intercrural infection 15previous history of septic shock secondary to UTI and vent-dependent history failure in 2013 16 left renal subcapsular hematoma, unchanged compared to September 2018 noted on the CAT scan of the abdomen and pelvis 17 spinal stenosis 18 chronic anemia 19 previous hospitalization for septic joint/ Plan Keep the insulin for now until the patient is fully awake and is able to tolerate oral diet. Diffuse D5 half-normal to sugars drop any further. We'll resume outpatient medications accordingly. We'll may stepdown this patient's from the ICU as the patient is improved and the blood sugars under much pressure control and the patient is using regular insulin drip that can be handled on the floor.
[2019-12-09] MEDS ORDERED: MECLIZINE 25 MG TAB PO PRN (10:41)
[2019-12-09 11:10] LABS: Glucose,Whole Blood 192 mg/dL (75-99)
[2019-12-09] MEDS: DEXTROSE 5%-0.45% NACL 1,000 ML IV SCH ×2 (11:20→18:05)
--- NOTE | 2019-12-09 11:51 | P.HPIM ---
History of Present Illness H&P Date: 12/09/19 This is a 69-year-old female patient of Dr. Burnham with a previous medical history significant for coronary artery disease status post PCI and stent placement of the LAD back in 2009 with ischemic cardiomyopathy, hypertension and hypertensive perivascular disease with left ventricular hyper trophy, chronic kidney disease stage III, diabetes mellitus type 2, obstructive sleep apnea, CVA, paroxysmal atrial fibrillation. Patient was last admitted in October and discharged to [facility]. Patient was treated for acute urinary tract infection with generalized weakness, anemia, metabolic encephalopathy. Patient had a recent hospitalization and prior to that in September which time she was t reated for hyperglycemia due to missing insulin dosing. The patient now presents with high blood sugars. Daughter was with the patient upon arrival to the emergency center. Patient apparently was not acting like herself for the past day with confusion and 5 falls. There was some nausea without vomiting. Blood sugar was checked at home which was extremely high and EMS was contacted and patient was transported to [facility] emergency center for evaluation. Patient was afebrile and vital signs stable. Patient was found to have a blood sugar 1234, sodium 126, potassium 6.0, chloride 88, CO2 21, BUN 22 and creatinine 0.94. WBC 13.3, hemoglobin 10.1, platelet count 572. Alkaline phosphatase 182, CK less than 20, lactic acid 7.7, TSH 2.590, lipase 14, albumin 2.7. Influenza testing negative. Urinalysis was moderate leukoesterase, RBCs 43 and bacteria moderate. Acetone was negative. Chest x-ray showed no acute cardio pulmonary disease. CAT scan of the brain showed cerebral atrophy and chronic small vessel ischemic changes. No acute intracranial abnormality. CAT scan of the neck showed multilevel spondylotic changes with some straightening CAT scan of the abdomen and pelvis revealed a left-sided renal subcapsular chronic Hematoma and Perinephric Hematoma. Decreased left renal function. Mass effect and displacement of the left kidney. No fracture seen. Minimal atelectasis of the lung bases. Patient was started on insulin drip, Rocephin, IV fluids and consult requested with Dr. Mcgee for ICU management and urology for subcapsular hematoma. Patient is seen in the emergency center and blood sugars currently 192 and electrolytes have returned to normal. Patient will be transitioned to [facility] with telemetry. Patient is awake and alert but confused regarding details of her admission and recent events. Patient did stop taking her insulin but is unable to state why. Patient's mentation is not at her known baseline. Review of Systems ROS unobtainable: due to mental status Past Medical History Past Medical History: Atrial Fibrillation, Cancer, CVA/TIA, Diabetes Mellitus, Hyperlipidemia, Hypertension Additional Past Medical History / Comment(s): Hepatocellular carcinoma (in remission), had one dose of chemo 2015, TIA X4, hiatal hernia, spinal stenosis, degenerative disc disease involving L3 and L4, diabetic peripheral neuropathy, hyperactive bladder, history of septic left knee joint post arthroplasty. restless leg syndrome. History of Any Multi-Drug Resistant Organisms: MRSA Date of last positivie culture/infection: 2010 MDRO Source:: Left knee Past Surgical History: Adenoidectomy, Bariatric Surgery, Cholecystectomy, Heart Catheterization With Stent, Hernia Repair, Hysterectomy, Joint Replacement, Orthopedic Surgery, Tonsillectomy Additional Past Surgical History / Comment(s): Lap band placed in 2003, prolapsed & removed in 2005, neuro stimulator in back, one stent to LAD, left knee arthroscopic surgery, right total knee arthroplasty, left total knee arthroplasty 10/01/2011, repair of quadriceps tendon 08/21/2011, left knee patellar tendon repair 09/24/2011, removal of the hardware of the left total knee arthroplasty with implantation of the antibiotic spacer October 08 2011, total left knee hardware replacement in May 2012,. trigger finger, left hand in 2003 with subsequent reversal in 2005. Uses a walker or wheelchair Past Anesthesia/Blood Transfusion Reactions: No Reported Reaction Date of Last Stent Placement:: 05/17/2010 Past Psychological History: Anxiety, Depression Smoking Status: Never smoker Past Alcohol Use History: None Reported Past Drug Use History: None Reported - Past Family History Mother Family Medical History: Congestive Heart Failure (CHF) Father Family Medical History: Myocardial Infarction ([place]) Medications and Allergies Home Medications Medication Instructions Recorded Confirmed Type Atorvastatin [Lipitor] 40 mg PO HS #30 tablet 04/06/14 12/09/19 Rx amLODIPine [Norvasc] 5 mg PO DAILY #30 tab 04/06/14 12/09/19 Rx Pantoprazole Sodium 40 mg PO DAILY 08/10/14 12/09/19 History Solifenacin Succinate [Vesicare] 10 mg PO HS 08/10/14 12/09/19 History Ondansetron [Zofran] 4 mg PO Q8H PRN 03/26/16 12/09/19 History Gabapentin [Neurontin] 600 mg PO HS 04/02/16 12/09/19 History Nystatin [Nystop] 1 applic TOPICAL DAILY PRN 02/14/17 12/09/19 History Bisacodyl [Dulcolax] 5 mg PO QAM 05/18/17 12/09/19 History Venlafaxine HCl [Effexor] 75 mg PO QAM 05/18/17 12/09/19 History Venlafaxine HCl [Effexor] 150 mg PO HS 05/18/17 12/09/19 History Aspirin [Adult Low Dose Aspirin EC] 81 mg PO DAILY 09/14/18 12/09/19 History rOPINIRole HCL [Requip] 0.25 mg PO HS 06/06/19 12/09/19 History Metoprolol Tartrate 25 mg PO BID 10/07/19 12/09/19 History Gabapentin [Neurontin] 300 mg PO QAM 10/28/19 12/09/19 History Meclizine HCl 25 mg PO DAILY PRN 10/28/19 12/09/19 History fentaNYL 50MCG/HR PATCH [Duragesic 1 patch TRANSDERM Q72H patch 11/02/19 12/09/19 Rx 50MCG/HR] INSULIN ASPART (NovoLOG) [NovoLOG 5 unit SQ AC-TID 12/09/19 12/09/19 History (formulary)] INSULIN ASPART (NovoLOG) [NovoLOG See Protocol SQ ACHS 12/09/19 12/09/19 History (formulary)] Insulin Detemir [Levemir Flextouch] 14 units SQ AC-BRKFST 12/09/19 12/09/19 History Insulin Detemir [Levemir Flextouch] 16 units SQ HS 12/09/19 12/09/19 History Allergies Allergy/AdvReac Type Severity Reaction Status Date / Time metformin HCl Allergy "kidneys Verified 10/28/19 21:52 [From Glucophage] shut down" Physical Exam Vitals: Vital Signs Temp Pulse Pulse Resp BP BP Pulse Ox 12/09/19 10:05 91 16 153/66 12/09/19 09:00 93 16 159/75 92 L 12/09/19 08:00 98.5 F 85 18 145/84 92 L 12/09/19 07:27 97.8 F 87 20 132/83 93 L 12/09/19 06:00 85 16 121/76 96 12/09/19 05:00 77 16 117/88 96 12/09/19 04:00 81 16 117/69 96 12/09/19 03:30 98.0 F 12/09/19 03:00 80 16 118/60 95 12/09/19 02:00 79 18 134/61 97 12/09/19 01:00 78 18 132/69 96 12/09/19 00:30 73 16 131/61 96 12/08/19 20:47 96.9 F L 86 20 134/78 96 Intake and Output 12/08/19 12/09/19 12/09/19 22:59 06:59 14:59 Intake Total 98.635 605.959 Balance 98.635 605.959 Intake: Intake, IV Titration 98.635 605.959 Amount Insulin Regular 100 unit 98.635 5.959 In Sodium Chloride 0.9% 100 ml @ Titrate IV .Q0M BRANDY Rx#:[id number] Sodium Chloride 0.9% 1, 600 000 ml @ 150 mls/hr IV . Q6H40M BRANDY Rx#:[id number] Other: Weight 99.79 kg - Constitutional General appearance: cooperative, no acute distress, obese, patient resting on ER stretcher - EENT Eyes: anicteric sclerae, PERRLA, normal appearance ENT: hearing grossly normal - Neck Neck: no lymphadenopathy, normal ROM, no other, no rigidity, no stridor, no thyromegaly - Respiratory Respiratory: bilateral: CTA, negative: diminished, dullness, rales, rhonchi - Cardiovascular Rhythm: regular Heart sounds: normal: S1, S2 Abnormal Heart Sounds: no systolic murmur, no diastolic murmur, no rub, no S3 Gallop - Gastrointestinal General gastrointestinal: normal bowel sounds, soft, tender in the left rib cage - Integumentary Integumentary: no rash - Neurologic Neurologic: CNII-XII intact - Musculoskeletal Musculoskeletal: gait normal, strength equal bilaterallytender in the left ankle, bilateral lower extremity paresthesia - Psychiatric Psychiatric: A&O x's 2, patient is confused Results CBC & Chem 7: 12/08/19 21:22 12/09/19 08:10 Labs: Abnormal Lab Results - Last 24 Hours (Table) 12/08/19 12/08/19 12/08/19 Range/Units 21:22 21:22 21:22 WBC 13.3 H (3.8-10.6) k/uL Hgb 10.1 L (11.4-16.0) gm/dL MCH 23.9 L (25.0-35.0) pg MCHC 27.2 L (31.0-37.0) g/dL Plt Count 572 H (150-450) k/uL Neutrophils # 11.4 H (1.3-7.7) k/uL Sodium 126 L (137-145) mmol/L Potassium 6.0 H (3.5-5.1) mmol/L Chloride 88 L (98-107) mmol/L Carbon Dioxide 21 L (22-30) mmol/L BUN 22 H (7-17) mg/dL Glucose 1234 H* (74-99) mg/dL POC Glucose (mg/dL) (75-99) mg/dL Plasma Lactic Acid Fabio 7.7 H* (0.7-2.0) mmol/L Alkaline Phosphatase 182 H (38-126) U/L Creatine Kinase <20 L (30-135) U/L Total Protein 6.0 L (6.3-8.2) g/dL Albumin 2.7 L (3.5-5.0) g/dL Lipase 14 L (23-300) U/L Urine Glucose (UA) (Negative) Urine Blood (Negative) Ur Leukocyte Esterase (Negative) Urine RBC (0-5) /hpf Urine Bacteria (None) /hpf Urine Mucus (None) /hpf Urine Yeast (Budding) (None) /hpf 12/08/19 12/08/19 12/09/19 Range/Units 21:22 22:42 00:19 WBC (3.8-10.6) k/uL Hgb (11.4-16.0) gm/dL MCH (25.0-35.0) pg MCHC (31.0-37.0) g/dL Plt Count (150-450) k/uL Neutrophils # (1.3-7.7) k/uL Sodium (137-145) mmol/L Potassium (3.5-5.1) mmol/L Chloride (98-107) mmol/L Carbon Dioxide (22-30) mmol/L BUN (7-17) mg/dL Glucose (74-99) mg/dL POC Glucose (mg/dL) >600 H >600 H (75-99) mg/dL Plasma Lactic Acid Fabio (0.7-2.0) mmol/L Alkaline Phosphatase (38-126) U/L Creatine Kinase (30-135) U/L Total Protein (6.3-8.2) g/dL Albumin (3.5-5.0) g/dL Lipase (23-300) U/L Urine Glucose (UA) 4+ H (Negative) Urine Blood Trace H (Negative) Ur Leukocyte Esterase Moderate H (Negative) Urine RBC 43 H (0-5) /hpf Urine Bacteria Moderate H (None) /hpf Urine Mucus Rare H (None) /hpf Urine Yeast (Budding) Few H (None) /hpf 12/09/19 12/09/19 12/09/19 Range/Units 02:20 02:20 02:44 WBC (3.8-10.6) k/uL Hgb (11.4-16.0) gm/dL MCH (25.0-35.0) pg MCHC (31.0-37.0) g/dL Plt Count (150-450) k/uL Neutrophils # (1.3-7.7) k/uL Sodium 133 L (137-145) mmol/L Potassium (3.5-5.1) mmol/L Chloride 97 L (98-107) mmol/L Carbon Dioxide (22-30) mmol/L BUN 20 H (7-17) mg/dL Glucose 646 H* (74-99) mg/dL POC Glucose (mg/dL) >600 H (75-99) mg/dL Plasma Lactic Acid Fabio 4.7 H* (0.7-2.0) mmol/L Alkaline Phosphatase (38-126) U/L Creatine Kinase (30-135) U/L Total Protein (6.3-8.2) g/dL Albumin (3.5-5.0) g/dL Lipase (23-300) U/L Urine Glucose (UA) (Negative) Urine Blood (Negative) Ur Leukocyte Esterase (Negative) Urine RBC (0-5) /hpf Urine Bacteria (None) /hpf Urine Mucus (None) /hpf Urine Yeast (Budding) (None) /hpf 12/09/19 12/09/19 12/09/19 Range/Units 03:59 05:10 05:12 WBC (3.8-10.6) k/uL Hgb (11.4-16.0) gm/dL MCH (25.0-35.0) pg MCHC (31.0-37.0) g/dL Plt Count (150-450) k/uL Neutrophils # (1.3-7.7) k/uL Sodium 136 L (137-145) mmol/L Potassium (3.5-5.1) mmol/L Chloride (98-107) mmol/L Carbon Dioxide (22-30) mmol/L BUN (7-17) mg/dL Glucose (74-99) mg/dL POC Glucose (mg/dL) 442 H 366 H (75-99) mg/dL Plasma Lactic Acid Fabio (0.7-2.0) mmol/L Alkaline Phosphatase (38-126) U/L Creatine Kinase (30-135) U/L Total Protein (6.3-8.2) g/dL Albumin (3.5-5.0) g/dL Lipase (23-300) U/L Urine Glucose (UA) (Negative) Urine Blood (Negative) Ur Leukocyte Esterase (Negative) Urine RBC (0-5) /hpf Urine Bacteria (None) /hpf Urine Mucus (None) /hpf Urine Yeast (Budding) (None) /hpf 12/09/19 12/09/19 12/09/19 Range/Units 06:08 07:17 07:48 WBC (3.8-10.6) k/uL Hgb (11.4-16.0) gm/dL MCH (25.0-35.0) pg MCHC (31.0-37.0) g/dL Plt Count (150-450) k/uL Neutrophils # (1.3-7.7) k/uL Sodium (137-145) mmol/L Potassium (3.5-5.1) mmol/L Chloride (98-107) mmol/L Carbon Dioxide (22-30) mmol/L BUN (7-17) mg/dL Glucose (74-99) mg/dL POC Glucose (mg/dL) 199 H 150 H 130 H (75-99) mg/dL Plasma Lactic Acid Fabio (0.7-2.0) mmol/L Alkaline Phosphatase (38-126) U/L Creatine Kinase (30-135) U/L Total Protein (6.3-8.2) g/dL Albumin (3.5-5.0) g/dL Lipase (23-300) U/L Urine Glucose (UA) (Negative) Urine Blood (Negative) Ur Leukocyte Esterase (Negative) Urine RBC (0-5) /hpf Urine Bacteria (None) /hpf Urine Mucus (None) /hpf Urine Yeast (Budding) (None) /hpf 12/09/19 12/09/19 Range/Units 08:56 09:58 WBC (3.8-10.6) k/uL Hgb (11.4-16.0) gm/dL MCH (25.0-35.0) pg MCHC (31.0-37.0) g/dL Plt Count (150-450) k/uL Neutrophils # (1.3-7.7) k/uL Sodium (137-145) mmol/L Potassium (3.5-5.1) mmol/L Chloride (98-107) mmol/L Carbon Dioxide (22-30) mmol/L BUN (7-17) mg/dL Glucose (74-99) mg/dL POC Glucose (mg/dL) 183 H 247 H (75-99) mg/dL Plasma Lactic Acid Fabio (0.7-2.0) mmol/L Alkaline Phosphatase (38-126) U/L Creatine Kinase (30-135) U/L Total Protein (6.3-8.2) g/dL Albumin (3.5-5.0) g/dL Lipase (23-300) U/L Urine Glucose (UA) (Negative) Urine Blood (Negative) Ur Leukocyte Esterase (Negative) Urine RBC (0-5) /hpf Urine Bacteria (None) /hpf Urine Mucus (None) /hpf Urine Yeast (Budding) (None) /hpf Assessment and Plan Plan: 1. Metabolic encephalopathy secondary to hyperglycemia and electrolyte abnormalities. 2. Hyperosmolar nonketotic coma with initial blood sugar of 1234. Patient is currently on insulin drip and will be transitioned to Levemir tonight at 16 units which is her home dose along with NovoLog 5 units with meals and scale. Patient is normally on Levemir 14 units in the morning as well. Consistent carb diet. Consult with Dr. Arely dowell. 3. Acute lactic acidosis secondary to hyperosmolar nonketotic hyperglycemia, resolved. 4. Recent treatment for urinary tract infection. Patient will be placed on Rocephin, repeat urine culture will be obtained. 5. Recent hospitalization for generalized weakness, metabolic encephalopathy secondary to UTI requiring discharge to subacute rehab at [facility]. Patient has been subsequently discharged. PT OT and social work for possible rehab. Hold fentanyl patch, gabapentin, Vesicare. 6. Electrolyte abnormalities with hyponatremia, hyperkalemia, hypo-chloremia secondary to hyperosmolar nonketotic hyperglycemia, resolved. 7. Diabetes mellitus type 2, insulin requiring, uncontrolled with hyperglycemia and hemoglobin A1c of 12. Patient is noncompliant with medications. 8. Anemia of chronic illness. 9. Chronic pain syndrome. Hold fentanyl patch and gabapentin for now. Tylenol as needed for pain. 10. Hypertension, hypertensive cardiovascular disease. Continue Norvasc 5 mg daily, Lopressor 25 mg twice daily. 11. Paroxysmal atrial fibrillation, currently in a sinus rhythm. Continue Lo pressor. 12. History of liver cancer status post chemotherapy under the care of hematology oncology at [facility]. 13. Hyperlipidemia. Continue atorvastatin 40 mg at bedtime. 14. COPD without exacerbation. 15. History of coronary artery disease with previous myocardial infarction and PCI of the LAD. Continue aspirin, metoprolol, Lipitor. 16. Recurrent depression. Continue Effexor. 17. Overactive bladder. Hold Vesicare. CODE STATUS: Full code. Discharge plan: To be determined. PT, OT, social services counselor consults. Patient will be admitted to the hospital for a minimum of 2 night stay. Impression and plan of care have been directed as dictated by the signing physician. Clare Mak nurse practitioner acting as scribe for signing physician.
[2019-12-09 12:48] LABS: Glucose,Whole Blood 149 mg/dL (75-99)
[2019-12-09 12:50] LABS: HCT 35.4 % (34.0-46.0); HGB 10.3 gm/dL (11.4-16.0); Hypochromasia Marked; MCH 23.6 pg (25.0-35.0); Mean Platelet Volume 8.2; Platelet Count 586 k/uL (150-450); RBC 4.35 m/uL (3.80-5.40); RDW 14.9 % (11.5-15.5); WBC 20.6 k/uL (3.8-10.6)
[2019-12-09 12:54] LABS: MCV 81.4 fL (80.0-100.0)
[2019-12-09] MEDS: VENLAFAXINE HCL 75 MG TAB PO SCH ×2 (12:56→20:11)
[2019-12-09] MEDS: ASPIRIN 81 MG PO SCH (12:56)
[2019-12-09] MEDS: amLODIPine 5 MG TAB PO SCH (12:56)
[2019-12-09] MEDS: PANTOPRAZOLE 40 MG TABLET PO SCH (12:56)
[2019-12-09] MEDS: METOPROLOL TARTRATE 25 MG TAB PO SCH ×2 (12:56→20:11)
[2019-12-09 15:16] LABS: Hemoglobin A1C 12.8 % (4.0-6.0)
[2019-12-09 16:01] LABS: Glucose,Whole Blood 287 mg/dL (75-99)
[2019-12-09 17:02] LABS: Glucose,Whole Blood 267 mg/dL (75-99)
[2019-12-09 18:06] LABS: Glucose,Whole Blood 212 mg/dL (75-99)
[2019-12-09 18:46] LABS: Potassium 4.9 mmol/L (3.5-5.1)
[2019-12-09 18:52] LABS: HCT 34.8 % (34.0-46.0); HGB 10.1 gm/dL (11.4-16.0); Hypochromasia Marked; MCH 23.3 pg (25.0-35.0); MCHC 29.1 g/dL (31.0-37.0); MCV 79.8 fL (80.0-100.0); Mean Platelet Volume 9.7; RBC 4.36 m/uL (3.80-5.40); RDW 14.8 % (11.5-15.5); WBC 24.1 k/uL (3.8-10.6)
[2019-12-09 20:02] LABS: Glucose,Whole Blood 181 mg/dL (75-99)
[2019-12-09] MEDS: ATORVASTATIN 40 MG TAB PO SCH (20:11)
[2019-12-09] MEDS: HEPARIN SODIUM,PORCINE 5,000 UNIT/ML 1 ML VIAL SQ SCH (20:11)
[2019-12-09] MEDS: INSULIN DETEMIR (LEVEMIR) 100 UNIT/ML SYR SQ SCH (20:11)
[2019-12-09] MEDS: INSULIN ASPART (NovoLOG) 100 UNIT/ML VIAL SQ SCH (20:12)
[2019-12-09 20:23] LABS: Lymphocytes # (M) 4.58 k/uL (1.0-4.8); Monocytes # (M) 1.45 k/uL (0-1.0); Neutrophils # (M) 18.08 k/uL (1.3-7.7); Neutrophils % (M) 75 %; Nucleated Red Blood Cells 0 /100 WBC (0-0); Platelet Count 530 k/uL (150-450); Total Cells Counted 100
--- NOTE | 2019-12-09 20:23 | P.GSCN ---
History of Present Illness Consult date: 12/09/19 Reason for Consult: perinephric hematoma History of present illness: Mr Cuba is a 69 year old female admitted for hyperglycemia and altered mental status. Urology is consulted for perinephric hematoma. She underwent a CT of the abdomen which showed a subcapsular hematoma with displacment of the left kidney. She denies any flank pain, denies any gross hematuria. She denies any falls, or trauma to the flank. No hx of any surgeries. She is not on any anticogulation. Review of Systems - Constitutional Reports weakness, Denies chills, Denies fever - EENT Ears: right: earache Ears, nose, mouth and throat: Denies dysphagia - Cardiovascular Reports leg edema, Denies chest pain - Respiratory Denies cough, Denies dyspnea - Gastrointestinal Denies abdominal pain, Denies nausea, Denies vomiting - Genitourinary Genitourinary: Reports hematuria, Denies dysuria, Denies flank pain - Neurological Reports confusion, Reports weakness - Psychiatric Reports confusion Past Medical History Past Medical History: Atrial Fibrillation, Cancer, CVA/TIA, Diabetes Mellitus, Hyperlipidemia, Hypertension Additional Past Medical History / Comment(s): Hepatocellular carcinoma (in remission), had one dose of chemo 2015, TIA X4, hiatal hernia, spinal stenosis, degenerative disc disease involving L3 and L4, diabetic peripheral neuropathy, hyperactive bladder, history of septic left knee joint post arthroplasty. restless leg syndrome. History of Any Multi-Drug Resistant Organisms: MRSA Year Discovered:: 2010 MDRO Source:: Left knee Past Surgical History: Adenoidectomy, Bariatric Surgery, Cholecystectomy, Heart Catheterization With Stent, Hernia Repair, Hysterectomy, Joint Replacement, Orthopedic Surgery, Tonsillectomy Additional Past Surgical History / Comment(s): Lap band placed in 2004, prolapsed & removed in 2005, neuro stimulator in back, one stent to LAD, left knee arthroscopic surgery, right total knee arthroplasty, left total knee arthroplasty 10/01/2011, repair of quadriceps tendon 08/21/2011, left knee patellar tendon repair 09/24/2011, removal of the hardware of the left total knee arthroplasty with implantation of the antibiotic spacer October 08 2011, total left knee hardware replacement in May 2012,. trigger finger, left hand in 2003 with subsequent reversal in 2005. Uses a walker or wheelchair Past Anesthesia/Blood Transfusion Reactions: No Reported Reaction Date of Last Stent Placement:: 05/17/2010 Past Psychological History: Anxiety, Depression Smoking Status: Never smoker Past Alcohol Use History: None Reported Past Drug Use History: None Reported - Past Family History Mother Family Medical History: Congestive Heart Failure (CHF) Father Family Medical History: Myocardial Infarction ([place]) Additional Family Medical History / Comment(s): Father at the age of 59 yrs from [place] Medications and Allergies Home Medications Medication Instructions Recorded Confirmed Type Atorvastatin [Lipitor] 40 mg PO HS #30 tablet 04/06/14 12/09/19 Rx amLODIPine [Norvasc] 5 mg PO DAILY #30 tab 04/06/14 12/09/19 Rx Pantoprazole Sodium 40 mg PO DAILY 08/10/14 12/09/19 History Solifenacin Succinate [Vesicare] 10 mg PO HS 08/10/14 12/09/19 History Ondansetron [Zofran] 4 mg PO Q8H PRN 03/26/16 12/09/19 History Gabapentin [Neurontin] 600 mg PO HS 04/02/16 12/09/19 History Nystatin [Nystop] 1 applic TOPICAL DAILY PRN 02/14/17 12/09/19 History Bisacodyl [Dulcolax] 5 mg PO QAM 05/18/17 12/09/19 History Venlafaxine HCl [Effexor] 75 mg PO QAM 05/18/17 12/09/19 History Venlafaxine HCl [Effexor] 150 mg PO HS 05/18/17 12/09/19 History Aspirin [Adult Low Dose Aspirin EC] 81 mg PO DAILY 09/14/18 12/09/19 History rOPINIRole HCL [Requip] 0.25 mg PO HS 06/06/19 12/09/19 History Metoprolol Tartrate 25 mg PO BID 10/07/19 12/09/19 History Gabapentin [Neurontin] 300 mg PO QAM 10/28/19 12/09/19 History Meclizine HCl 25 mg PO DAILY PRN 10/28/19 12/09/19 History fentaNYL 50MCG/HR PATCH [Duragesic 1 patch TRANSDERM Q72H patch 11/02/19 12/09/19 Rx 50MCG/HR] INSULIN ASPART (NovoLOG) [NovoLOG 5 unit SQ AC-TID 12/09/19 12/09/19 History (formulary)] INSULIN ASPART (NovoLOG) [NovoLOG See Protocol SQ ACHS 12/09/19 12/09/19 History (formulary)] Insulin Detemir [Levemir Flextouch] 14 units SQ AC-BRKFST 12/09/19 12/09/19 History Insulin Detemir [Levemir Flextouch] 16 units SQ HS 12/09/19 12/09/19 History Allergies Allergy/AdvReac Type Severity Reaction Status Date / Time metformin HCl Allergy "kidneys Verified 10/28/19 21:52 [From Glucophage] shut down" Surgical - Exam Vital Signs Temp Pulse Resp BP Pulse Ox 96.9 F L 86 20 134/78 96 12/08/19 20:47 12/08/19 20:47 12/08/19 20:47 12/08/19 20:47 12/08/19 20:47 - General no distress, no pain - Eyes normal ocular movement, no pale - ENT normal mucosa, no hearing loss - Respiratory normal expansion, normal respiratory effort - Abdomen Abdomen: soft, no non tender, no distended - Genitourinary no CVA tenderness, no ecchymosis noted Results - Labs 12/09/19 18:01 12/09/19 18:01 Abnormal Lab Results - Last 24 Hours (Table) 12/08/19 12/08/19 12/08/19 Range/Units 21:22 21:22 21:22 WBC 13.3 H (3.8-10.6) k/uL Hgb 10.1 L (11.4-16.0) gm/dL MCV (80.0-100.0) fL MCH 23.9 L (25.0-35.0) pg MCHC 27.2 L (31.0-37.0) g/dL Plt Count 572 H (150-450) k/uL Neutrophils # 11.4 H (1.3-7.7) k/uL Sodium 126 L (137-145) mmol/L Potassium 6.0 H (3.5-5.1) mmol/L Chloride 88 L (98-107) mmol/L Carbon Dioxide 21 L (22-30) mmol/L BUN 22 H (7-17) mg/dL Glucose 1234 H* (74-99) mg/dL POC Glucose (mg/dL) (75-99) mg/dL Hemoglobin A1c (4.0-6.0) % Plasma Lactic Acid Fabio 7.7 H* (0.7-2.0) mmol/L Alkaline Phosphatase 182 H (38-126) U/L Creatine Kinase <20 L (30-135) U/L Total Protein 6.0 L (6.3-8.2) g/dL Albumin 2.7 L (3.5-5.0) g/dL Lipase 14 L (23-300) U/L Urine Glucose (UA) (Negative) Urine Blood (Negative) Ur Leukocyte Esterase (Negative) Urine RBC (0-5) /hpf Urine Bacteria (None) /hpf Urine Mucus (None) /hpf Urine Yeast (Budding) (None) /hpf 12/08/19 12/08/19 12/09/19 Range/Units 21:22 22:42 00:19 WBC (3.8-10.6) k/uL Hgb (11.4-16.0) gm/dL MCV (80.0-100.0) fL MCH (25.0-35.0) pg MCHC (31.0-37.0) g/dL Plt Count (150-450) k/uL Neutrophils # (1.3-7.7) k/uL Sodium (137-145) mmol/L Potassium (3.5-5.1) mmol/L Chloride (98-107) mmol/L Carbon Dioxide (22-30) mmol/L BUN (7-17) mg/dL Glucose (74-99) mg/dL POC Glucose (mg/dL) >600 H >600 H (75-99) mg/dL Hemoglobin A1c (4.0-6.0) % Plasma Lactic Acid Fabio (0.7-2.0) mmol/L Alkaline Phosphatase (38-126) U/L Creatine Kinase (30-135) U/L Total Protein (6.3-8.2) g/dL Albumin (3.5-5.0) g/dL Lipase (23-300) U/L Urine Glucose (UA) 4+ H (Negative) Urine Blood Trace H (Negative) Ur Leukocyte Esterase Moderate H (Negative) Urine RBC 43 H (0-5) /hpf Urine Bacteria Moderate H (None) /hpf Urine Mucus Rare H (None) /hpf Urine Yeast (Budding) Few H (None) /hpf 12/09/19 12/09/19 12/09/19 Range/Units 02:20 02:20 02:20 WBC (3.8-10.6) k/uL Hgb (11.4-16.0) gm/dL MCV (80.0-100.0) fL MCH (25.0-35.0) pg MCHC (31.0-37.0) g/dL Plt Count (150-450) k/uL Neutrophils # (1.3-7.7) k/uL Sodium 133 L (137-145) mmol/L Potassium (3.5-5.1) mmol/L Chloride 97 L (98-107) mmol/L Carbon Dioxide (22-30) mmol/L BUN 20 H (7-17) mg/dL Glucose 646 H* (74-99) mg/dL POC Glucose (mg/dL) (75-99) mg/dL Hemoglobin A1c 12.8 H (4.0-6.0) % Plasma Lactic Acid Fabio 4.7 H* (0.7-2.0) mmol/L Alkaline Phosphatase (38-126) U/L Creatine Kinase (30-135) U/L Total Protein (6.3-8.2) g/dL Albumin (3.5-5.0) g/dL Lipase (23-300) U/L Urine Glucose (UA) (Negative) Urine Blood (Negative) Ur Leukocyte Esterase (Negative) Urine RBC (0-5) /hpf Urine Bacteria (None) /hpf Urine Mucus (None) /hpf Urine Yeast (Budding) (None) /hpf 12/09/19 12/09/19 12/09/19 Range/Units 02:44 03:59 05:10 WBC (3.8-10.6) k/uL Hgb (11.4-16.0) gm/dL MCV (80.0-100.0) fL MCH (25.0-35.0) pg MCHC (31.0-37.0) g/dL Plt Count (150-450) k/uL Neutrophils # (1.3-7.7) k/uL Sodium 136 L (137-145) mmol/L Potassium (3.5-5.1) mmol/L Chloride (98-107) mmol/L Carbon Dioxide (22-30) mmol/L BUN (7-17) mg/dL Glucose (74-99) mg/dL POC Glucose (mg/dL) >600 H 442 H (75-99) mg/dL Hemoglobin A1c (4.0-6.0) % Plasma Lactic Acid Fabio (0.7-2.0) mmol/L Alkaline Phosphatase (38-126) U/L Creatine Kinase (30-135) U/L Total Protein (6.3-8.2) g/dL Albumin (3.5-5.0) g/dL Lipase (23-300) U/L Urine Glucose (UA) (Negative) Urine Blood (Negative) Ur Leukocyte Esterase (Negative) Urine RBC (0-5) /hpf Urine Bacteria (None) /hpf Urine Mucus (None) /hpf Urine Yeast (Budding) (None) /hpf 12/09/19 12/09/19 12/09/19 Range/Units 05:12 06:08 07:17 WBC (3.8-10.6) k/uL Hgb (11.4-16.0) gm/dL MCV (80.0-100.0) fL MCH (25.0-35.0) pg MCHC (31.0-37.0) g/dL Plt Count (150-450) k/uL Neutrophils # (1.3-7.7) k/uL Sodium (137-145) mmol/L Potassium (3.5-5.1) mmol/L Chloride (98-107) mmol/L Carbon Dioxide (22-30) mmol/L BUN (7-17) mg/dL Glucose (74-99) mg/dL POC Glucose (mg/dL) 366 H 199 H 150 H (75-99) mg/dL Hemoglobin A1c (4.0-6.0) % Plasma Lactic Acid Fabio (0.7-2.0) mmol/L Alkaline Phosphatase (38-126) U/L Creatine Kinase (30-135) U/L Total Protein (6.3-8.2) g/dL Albumin (3.5-5.0) g/dL Lipase (23-300) U/L Urine Glucose (UA) (Negative) Urine Blood (Negative) Ur Leukocyte Esterase (Negative) Urine RBC (0-5) /hpf Urine Bacteria (None) /hpf Urine Mucus (None) /hpf Urine Yeast (Budding) (None) /hpf 12/09/19 12/09/19 12/09/19 Range/Units 07:48 08:56 09:58 WBC (3.8-10.6) k/uL Hgb (11.4-16.0) gm/dL MCV (80.0-100.0) fL MCH (25.0-35.0) pg MCHC (31.0-37.0) g/dL Plt Count (150-450) k/uL Neutrophils # (1.3-7.7) k/uL Sodium (137-145) mmol/L Potassium (3.5-5.1) mmol/L Chloride (98-107) mmol/L Carbon Dioxide (22-30) mmol/L BUN (7-17) mg/dL Glucose (74-99) mg/dL POC Glucose (mg/dL) 130 H 183 H 247 H (75-99) mg/dL Hemoglobin A1c (4.0-6.0) % Plasma Lactic Acid Fabio (0.7-2.0) mmol/L Alkaline Phosphatase (38-126) U/L Creatine Kinase (30-135) U/L Total Protein (6.3-8.2) g/dL Albumin (3.5-5.0) g/dL Lipase (23-300) U/L Urine Glucose (UA) (Negative) Urine Blood (Negative) Ur Leukocyte Esterase (Negative) Urine RBC (0-5) /hpf Urine Bacteria (None) /hpf Urine Mucus (None) /hpf Urine Yeast (Budding) (None) /hpf 12/09/19 12/09/19 12/09/19 Range/Units 11:06 12:25 12:46 WBC 20.6 H (3.8-10.6) k/uL Hgb 10.3 L (11.4-16.0) gm/dL MCV (80.0-100.0) fL MCH 23.6 L (25.0-35.0) pg MCHC 29.0 L (31.0-37.0) g/dL Plt Count 586 H (150-450) k/uL Neutrophils # (1.3-7.7) k/uL Sodium (137-145) mmol/L Potassium (3.5-5.1) mmol/L Chloride (98-107) mmol/L Carbon Dioxide (22-30) mmol/L BUN (7-17) mg/dL Glucose (74-99) mg/dL POC Glucose (mg/dL) 192 H 149 H (75-99) mg/dL Hemoglobin A1c (4.0-6.0) % Plasma Lactic Acid Fabio (0.7-2.0) mmol/L Alkaline Phosphatase (38-126) U/L Creatine Kinase (30-135) U/L Total Protein (6.3-8.2) g/dL Albumin (3.5-5.0) g/dL Lipase (23-300) U/L Urine Glucose (UA) (Negative) Urine Blood (Negative) Ur Leukocyte Esterase (Negative) Urine RBC (0-5) /hpf Urine Bacteria (None) /hpf Urine Mucus (None) /hpf Urine Yeast (Budding) (None) /hpf 12/09/19 12/09/19 12/09/19 Range/Units 15:59 17:01 18:01 WBC 24.1 H (3.8-10.6) k/uL Hgb 10.1 L (11.4-16.0) gm/dL MCV 79.8 L (80.0-100.0) fL MCH 23.3 L (25.0-35.0) pg MCHC 29.1 L (31.0-37.0) g/dL Plt Count (150-450) k/uL Neutrophils # (1.3-7.7) k/uL Sodium (137-145) mmol/L Potassium (3.5-5.1) mmol/L Chloride (98-107) mmol/L Carbon Dioxide (22-30) mmol/L BUN (7-17) mg/dL Glucose (74-99) mg/dL POC Glucose (mg/dL) 287 H 267 H (75-99) mg/dL Hemoglobin A1c (4.0-6.0) % Plasma Lactic Acid Fabio (0.7-2.0) mmol/L Alkaline Phosphatase (38-126) U/L Creatine Kinase (30-135) U/L Total Protein (6.3-8.2) g/dL Albumin (3.5-5.0) g/dL Lipase (23-300) U/L Urine Glucose (UA) (Negative) Urine Blood (Negative) Ur Leukocyte Esterase (Negative) Urine RBC (0-5) /hpf Urine Bacteria (None) /hpf Urine Mucus (None) /hpf Urine Yeast (Budding) (None) /hpf 12/09/19 12/09/19 12/09/19 Range/Units 18:01 18:04 20:00 WBC (3.8-10.6) k/uL Hgb (11.4-16.0) gm/dL MCV (80.0-100.0) fL MCH (25.0-35.0) pg MCHC (31.0-37.0) g/dL Plt Count (150-450) k/uL Neutrophils # (1.3-7.7) k/uL Sodium 132 L (137-145) mmol/L Potassium (3.5-5.1) mmol/L Chloride (98-107) mmol/L Carbon Dioxide (22-30) mmol/L BUN (7-17) mg/dL Glucose (74-99) mg/dL POC Glucose (mg/dL) 212 H 181 H (75-99) mg/dL Hemoglobin A1c (4.0-6.0) % Plasma Lactic Acid Fabio (0.7-2.0) mmol/L Alkaline Phosphatase (38-126) U/L Creatine Kinase (30-135) U/L Total Protein (6.3-8.2) g/dL Albumin (3.5-5.0) g/dL Lipase (23-300) U/L Urine Glucose (UA) (Negative) Urine Blood (Negative) Ur Leukocyte Esterase (Negative) Urine RBC (0-5) /hpf Urine Bacteria (None) /hpf Urine Mucus (None) /hpf Urine Yeast (Budding) (None) /hpf Diabetes panel 12/08/19 12/09/19 12/09/19 Range/Units 21:22 02:20 02:20 Sodium 126 L 133 L (137-145) mmol/L Potassium 6.0 H 4.4 (3.5-5.1) mmol/L Chloride 88 L 97 L (98-107) mmol/L Carbon Dioxide 21 L 25 (22-30) mmol/L BUN 22 H 20 H (7-17) mg/dL Creatinine 0.94 0.84 (0.52-1.04) mg/dL Glucose 1234 H* 646 H* (74-99) mg/dL Hemoglobin A1c 12.8 H (4.0-6.0) % Calcium 8.7 8.7 (8.4-10.2) mg/dL AST 21 (14-36) U/L ALT 20 (4-34) U/L Alkaline Phosphatase 182 H (38-126) U/L Total Protein 6.0 L (6.3-8.2) g/dL Albumin 2.7 L (3.5-5.0) g/dL 12/09/19 12/09/19 12/09/19 Range/Units 05:10 08:10 18:01 Sodium 136 L 139 132 L (137-145) mmol/L Potassium 4.6 4.6 4.9 (3.5-5.1) mmol/L Chloride 101 106 101 (98-107) mmol/L Carbon Dioxide 24 25 24 (22-30) mmol/L BUN (7-17) mg/dL Creatinine (0.52-1.04) mg/dL Glucose (74-99) mg/dL Hemoglobin A1c (4.0-6.0) % Calcium (8.4-10.2) mg/dL AST (14-36) U/L ALT (4-34) U/L Alkaline Phosphatase (38-126) U/L Total Protein (6.3-8.2) g/dL Albumin (3.5-5.0) g/dL Thyroid panel 12/08/19 Range/Units 21:22 TSH 2.590 (0.465-4.680) mIU/L Calcium panel 12/08/19 12/09/19 Range/Units 21:22 02:20 Calcium 8.7 8.7 (8.4-10.2) mg/dL Albumin 2.7 L (3.5-5.0) g/dL Pituitary panel 12/08/19 12/09/19 12/09/19 Range/Units 21:22 02:20 05:10 Sodium 126 L 133 L 136 L (137-145) mmol/L Potassium 6.0 H 4.4 4.6 (3.5-5.1) mmol/L Chloride 88 L 97 L 101 (98-107) mmol/L Carbon Dioxide 21 L 25 24 (22-30) mmol/L BUN 22 H 20 H (7-17) mg/dL Creatinine 0.94 0.84 (0.52-1.04) mg/dL Glucose 1234 H* 646 H* (74-99) mg/dL Calcium 8.7 8.7 (8.4-10.2) mg/dL TSH 2.590 (0.465-4.680) mIU/L 12/09/19 12/09/19 Range/Units 08:10 18:01 Sodium 139 132 L (137-145) mmol/L Potassium 4.6 4.9 (3.5-5.1) mmol/L Chloride 106 101 (98-107) mmol/L Carbon Dioxide 25 24 (22-30) mmol/L BUN (7-17) mg/dL Creatinine (0.52-1.04) mg/dL Glucose (74-99) mg/dL Calcium (8.4-10.2) mg/dL TSH (0.465-4.680) mIU/L Adrenal panel 12/08/19 12/09/19 12/09/19 Range/Units 21:22 02:20 05:10 Sodium 126 L 133 L 136 L (137-145) mmol/L Potassium 6.0 H 4.4 4.6 (3.5-5.1) mmol/L Chloride 88 L 97 L 101 (98-107) mmol/L Carbon Dioxide 21 L 25 24 (22-30) mmol/L BUN 22 H 20 H (7-17) mg/dL Creatinine 0.94 0.84 (0.52-1.04) mg/dL Glucose 1234 H* 646 H* (74-99) mg/dL Calcium 8.7 8.7 (8.4-10.2) mg/dL Total Bilirubin 0.4 (0.2-1.3) mg/dL AST 21 (14-36) U/L ALT 20 (4-34) U/L Alkaline Phosphatase 182 H (38-126) U/L Total Protein 6.0 L (6.3-8.2) g/dL Albumin 2.7 L (3.5-5.0) g/dL 12/09/19 12/09/19 Range/Units 08:10 18:01 Sodium 139 132 L (137-145) mmol/L Potassium 4.6 4.9 (3.5-5.1) mmol/L Chloride 106 101 (98-107) mmol/L Carbon Dioxide 25 24 (22-30) mmol/L BUN (7-17) mg/dL Creatinine (0.52-1.04) mg/dL Glucose (74-99) mg/dL Calcium (8.4-10.2) mg/dL Total Bilirubin (0.2-1.3) mg/dL AST (14-36) U/L ALT (4-34) U/L Alkaline Phosphatase (38-126) U/L Total Protein (6.3-8.2) g/dL Albumin (3.5-5.0) g/dL - Imaging CT scan - abdomen: image reviewed (Large left sided capsular hematoma) Assessment and Plan Assessment: Ms Cuba is 69 yo female admitted with hyperglycemia and AMS. She underwent a CT which showed Large left sided subcapsular hematoma. Hgb stable, patient is asymptomatic -Bed rest, monitor vitals -Q12 hours hgb check -will need a repeat CT in 6 weeks to r/o RCC is the cause of the perinephric hematoma
[2019-12-09 21:03] LABS: HCT 34.9 % (34.0-46.0); HGB 10.2 gm/dL (11.4-16.0); Hypochromasia Marked; MCH 23.3 pg (25.0-35.0); MCHC 29.3 g/dL (31.0-37.0); MCV 79.5 fL (80.0-100.0); Mean Platelet Volume 9.5; Platelet Count 492 k/uL (150-450); RBC 4.39 m/uL (3.80-5.40); RDW 14.9 % (11.5-15.5); WBC 22.6 k/uL (3.8-10.6)
[2019-12-09 21:52] LABS: Glucose,Whole Blood 171 mg/dL (75-99)
[2019-12-09 23:56] LABS: Glucose,Whole Blood 195 mg/dL (75-99)
[2019-12-10 02:12] LABS: Glucose,Whole Blood 211 mg/dL (75-99)
[2019-12-10] MEDS: DEXTROSE 5%-0.45% NACL 1,000 ML IV SCH ×4 (02:13→20:47)
[2019-12-10] MEDS: SODIUM CHLORIDE 0.9% 1,000 ML IV SCH ×4 (02:13→23:35)
[2019-12-10 03:56] LABS: Glucose,Whole Blood 284 mg/dL (75-99)
[2019-12-10 04:15] LABS: ALT 9 U/L (4-34); AST 18 U/L (14-36); African American GFR (CKD) >90 (>60 ml/min/1.73 sqM); Albumin 2.2 g/dL (3.5-5.0); Alkaline Phosphatase 126 U/L (38-126); Anion Gap 7 mmol/L; Blood Urea Nitrogen 15 mg/dL (7-17); Calcium 7.9 mg/dL (8.4-10.2); Carbon Dioxide 26 mmol/L (22-30); Chloride 99 mmol/L (98-107); Glucose 200 mg/dL (74-99); Non-African American GFR(CKD) 82 (>60 ml/min/1.73 sqM); Potassium 4.2 mmol/L (3.5-5.1); Sodium 132 mmol/L (137-145); Total Bilirubin 0.3 mg/dL (0.2-1.3); Total Protein 5.3 g/dL (6.3-8.2)
[2019-12-10 04:48] LABS: HCT 33.3 % (34.0-46.0); HGB 9.7 gm/dL (11.4-16.0); Hypochromasia Marked; MCH 23.8 pg (25.0-35.0); MCHC 29.2 g/dL (31.0-37.0); MCV 81.7 fL (80.0-100.0); Mean Platelet Volume 8.6; Platelet Count 470 k/uL (150-450); RBC 4.07 m/uL (3.80-5.40); RDW 15.5 % (11.5-15.5); WBC 17.8 k/uL (3.8-10.6)
[2019-12-10 05:10] LABS: Band Neutrophils % 1 %; Lymphocytes # (M) 2.49 k/uL (1.0-4.8); Monocytes # (M) 0.18 k/uL (0-1.0); Neutrophils % (M) 84 %; Nucleated Red Blood Cells 0 /100 WBC (0-0); Total Cells Counted 100
[2019-12-10 05:56] LABS: Glucose,Whole Blood 237 mg/dL (75-99)
--- NOTE | 2019-12-10 07:40 | P.PN ---
Subjective Progress Note Date: 12/10/19 The patient is in the hospital with hyperglycemia and altered mental status. A computed tomography scan of the abdomen identified a left perinephric hematoma. She was seen by from our office. Her condition and hemoglobin appeared to be stable. Today she was examined her abdomen is soft. She is complaining of some pain on the right side but left-sided examination does not elicit any discomfort. She still has some mental confusion. Her hemoglobin was stable. We will continue to follow. Objective - Vital Signs Vital signs: Vital Signs Temp 98.2 F 12/10/19 01:11 Pulse 72 12/10/19 01:11 Resp 17 12/10/19 01:11 BP 157/83 12/10/19 01:11 Pulse Ox 92 L 12/10/19 01:11 Intake & Output 12/09/19 12/10/19 12/10/19 18:59 06:59 18:59 Intake Total 1032.400 58.843 Balance 1032.400 58.843 Weight 99.79 kg Intake: Intake, IV Titration 792.400 58.843 Amount Insulin Regular 100 unit 42.400 58.843 In Sodium Chloride 0.9% 100 ml @ Titrate IV .Q0M BRANDY Rx#:[id number] Sodium Chloride 0.9% 1, 750 000 ml @ 150 mls/hr IV . Q6H40M BRANDY Rx#:[id number] Oral 240 Other: Voiding Method Bedpan Diaper Incontinent Incontinent # Voids 2 - Labs CBC & Chem 7: 12/10/19 03:17 12/10/19 03:17 Labs: Abnormal Lab Results - Last 24 Hours (Table) 12/09/19 12/09/19 12/09/19 Range/Units 02:20 07:48 08:56 WBC (3.8-10.6) k/uL Hgb (11.4-16.0) gm/dL Hct (34.0-46.0) % MCV (80.0-100.0) fL MCH (25.0-35.0) pg MCHC (31.0-37.0) g/dL Plt Count (150-450) k/uL Neutrophils # (Manual) (1.3-7.7) k/uL Monocytes # (Manual) (0-1.0) k/uL Sodium (137-145) mmol/L Glucose (74-99) mg/dL POC Glucose (mg/dL) 130 H 183 H (75-99) mg/dL Hemoglobin A1c 12.8 H (4.0-6.0) % Calcium (8.4-10.2) mg/dL Total Protein (6.3-8.2) g/dL Albumin (3.5-5.0) g/dL 12/09/19 12/09/19 12/09/19 Range/Units 09:58 11:06 12:25 WBC 20.6 H (3.8-10.6) k/uL Hgb 10.3 L (11.4-16.0) gm/dL Hct (34.0-46.0) % MCV (80.0-100.0) fL MCH 23.6 L (25.0-35.0) pg MCHC 29.0 L (31.0-37.0) g/dL Plt Count 586 H (150-450) k/uL Neutrophils # (Manual) (1.3-7.7) k/uL Monocytes # (Manual) (0-1.0) k/uL Sodium (137-145) mmol/L Glucose (74-99) mg/dL POC Glucose (mg/dL) 247 H 192 H (75-99) mg/dL Hemoglobin A1c (4.0-6.0) % Calcium (8.4-10.2) mg/dL Total Protein (6.3-8.2) g/dL Albumin (3.5-5.0) g/dL 12/09/19 12/09/19 12/09/19 Range/Units 12:46 15:59 17:01 WBC (3.8-10.6) k/uL Hgb (11.4-16.0) gm/dL Hct (34.0-46.0) % MCV (80.0-100.0) fL MCH (25.0-35.0) pg MCHC (31.0-37.0) g/dL Plt Count (150-450) k/uL Neutrophils # (Manual) (1.3-7.7) k/uL Monocytes # (Manual) (0-1.0) k/uL Sodium (137-145) mmol/L Glucose (74-99) mg/dL POC Glucose (mg/dL) 149 H 287 H 267 H (75-99) mg/dL Hemoglobin A1c (4.0-6.0) % Calcium (8.4-10.2) mg/dL Total Protein (6.3-8.2) g/dL Albumin (3.5-5.0) g/dL 12/09/19 12/09/19 12/09/19 Range/Units 18:01 18:01 18:04 WBC 24.1 H (3.8-10.6) k/uL Hgb 10.1 L (11.4-16.0) gm/dL Hct (34.0-46.0) % MCV 79.8 L (80.0-100.0) fL MCH 23.3 L (25.0-35.0) pg MCHC 29.1 L (31.0-37.0) g/dL Plt Count 530 H (150-450) k/uL Neutrophils # (Manual) 18.08 H (1.3-7.7) k/uL Monocytes # (Manual) 1.45 H (0-1.0) k/uL Sodium 132 L (137-145) mmol/L Glucose (74-99) mg/dL POC Glucose (mg/dL) 212 H (75-99) mg/dL Hemoglobin A1c (4.0-6.0) % Calcium (8.4-10.2) mg/dL Total Protein (6.3-8.2) g/dL Albumin (3.5-5.0) g/dL 12/09/19 12/09/19 12/09/19 Range/Units 20:00 20:09 21:51 WBC 22.6 H (3.8-10.6) k/uL Hgb 10.2 L (11.4-16.0) gm/dL Hct (34.0-46.0) % MCV 79.5 L (80.0-100.0) fL MCH 23.3 L (25.0-35.0) pg MCHC 29.3 L (31.0-37.0) g/dL Plt Count 492 H (150-450) k/uL Neutrophils # (Manual) (1.3-7.7) k/uL Monocytes # (Manual) (0-1.0) k/uL Sodium (137-145) mmol/L Glucose (74-99) mg/dL POC Glucose (mg/dL) 181 H 171 H (75-99) mg/dL Hemoglobin A1c (4.0-6.0) % Calcium (8.4-10.2) mg/dL Total Protein (6.3-8.2) g/dL Albumin (3.5-5.0) g/dL 12/09/19 12/10/19 12/10/19 Range/Units 23:55 02:11 03:17 WBC 17.8 H (3.8-10.6) k/uL Hgb 9.7 L (11.4-16.0) gm/dL Hct 33.3 L (34.0-46.0) % MCV (80.0-100.0) fL MCH 23.8 L (25.0-35.0) pg MCHC 29.2 L (31.0-37.0) g/dL Plt Count 470 H (150-450) k/uL Neutrophils # (Manual) 15.10 H (1.3-7.7) k/uL Monocytes # (Manual) (0-1.0) k/uL Sodium (137-145) mmol/L Glucose (74-99) mg/dL POC Glucose (mg/dL) 195 H 211 H (75-99) mg/dL Hemoglobin A1c (4.0-6.0) % Calcium (8.4-10.2) mg/dL Total Protein (6.3-8.2) g/dL Albumin (3.5-5.0) g/dL 12/10/19 12/10/19 12/10/19 Range/Units 03:17 03:54 05:54 WBC (3.8-10.6) k/uL Hgb (11.4-16.0) gm/dL Hct (34.0-46.0) % MCV (80.0-100.0) fL MCH (25.0-35.0) pg MCHC (31.0-37.0) g/dL Plt Count (150-450) k/uL Neutrophils # (Manual) (1.3-7.7) k/uL Monocytes # (Manual) (0-1.0) k/uL Sodium 132 L (137-145) mmol/L Glucose 200 H (74-99) mg/dL POC Glucose (mg/dL) 284 H 237 H (75-99) mg/dL Hemoglobin A1c (4.0-6.0) % Calcium 7.9 L (8.4-10.2) mg/dL Total Protein 5.3 L (6.3-8.2) g/dL Albumin 2.2 L (3.5-5.0) g/dL Microbiology - Last 24 Hours (Table) 12/08/19 20:13 Blood Culture - Preliminary Blood No Growth after 24 hours
[2019-12-10 07:58] LABS: HCT 30.9 % (34.0-46.0); HGB 9.5 gm/dL (11.4-16.0); Hypochromasia Marked; MCH 24.7 pg (25.0-35.0); MCHC 30.6 g/dL (31.0-37.0); MCV 80.6 fL (80.0-100.0); Mean Platelet Volume 9.1; Platelet Count 387 k/uL (150-450); RBC 3.83 m/uL (3.80-5.40); RDW 15.5 % (11.5-15.5); WBC 18.3 k/uL (3.8-10.6)
[2019-12-10 08:03] LABS: Glucose,Whole Blood 178 mg/dL (75-99)
[2019-12-10] MEDS: INSULIN ASPART (NovoLOG) 100 UNIT/ML VIAL SQ SCH ×6 (08:51→20:38)
[2019-12-10] MEDS: INSULIN DETEMIR (LEVEMIR) 100 UNIT/ML SYR SQ SCH ×3 (08:51→20:58)
[2019-12-10] MEDS: METOPROLOL TARTRATE 25 MG TAB PO SCH ×2 (08:59→20:45)
[2019-12-10] MEDS: ASPIRIN 81 MG PO SCH (08:59)
[2019-12-10] MEDS: amLODIPine 5 MG TAB PO SCH (08:59)
[2019-12-10] MEDS: BISACODYL 5 MG TABLET.DR PO SCH (08:59)
[2019-12-10] MEDS: HEPARIN SODIUM,PORCINE 5,000 UNIT/ML 1 ML VIAL SQ SCH ×2 (09:00→20:46)
[2019-12-10] MEDS: PANTOPRAZOLE 40 MG TABLET PO SCH (09:00)
[2019-12-10] MEDS: VENLAFAXINE HCL 75 MG TAB PO SCH ×2 (09:03→20:45)
[2019-12-10] MEDS: FLUCONAZOLE 100 MG TAB PO SCH (09:33)
[2019-12-10] MEDS: NYSTATIN 100,000UNIT/GM CREAM 30 GM TUBE TOPICAL SCH ×3 (09:36→20:47)
[2019-12-10 10:04] LABS: Glucose,Whole Blood 267 mg/dL (75-99)
--- NOTE | 2019-12-10 11:44 | P.PN ---
Subjective Progress Note Date: 12/10/19 Principal diagnosis: Acute hyperglycemic nonketotic hyperosmolar syndrome 69-year-old female one of Dr. Burnham with a previous medical history significant for coronary artery disease status post PCI and stent placement of the LAD back in 2009 with ischemic cardiomyopathy, hypertension and hypertensive heart disease with left ventricular hypertrophy, chronic kidney disease stage III, obstructive sleep apnea, CVA, paroxysmal atrial fibrillation, septic left knee arthroplasty, liver/hepatocellular carcinoma cancer in the care of [facility] , DM type 2 maintained on insulin, hyperlipidemia, hypertension, spinal stenosis, restless leg syndrome, diabetic peripheral neuropathy, hyperactive bladder, previous bouts of septic shock related to UTI and previous history of MRSA infection of the left knee The patient came into the emergency department yesterday because of hyperglycemia and altered mentation. The patient was quite lethargic and somewhat confused and she had frequent falls at home. She was having some nausea without any emesis. Blood sugar at home was extremely high. EMS was called to the scene. Apparently there was a blunt trauma to the head with a recurrent falls that the patient had at home. No recent medication change and the patient is supposed to be on Levemir insulin 16 units at bedtime. She is also supposed to be on 5 units of NovoLog with meals and a sliding scale coverage. No fever. No chills. No night sweats. Her presentation was consistent with hyperosmolar nonketotic's coma. Her sodium was 11/29/2015 time of admission and this is consistent with pseudo-hyponatremia. His anion gap was 17 it immediately dropped down to 11 and then down to 8. The glucose was 1234 and this was treated appropriately with insulin drip. Lactic acid level was at 7.7 and currently down to 1.3. Overnight, the patient received IV fluids and she was given a total of 2 L and currently she is on 0.9 at the rate of 1 50 mL an hour. She was given insulin drip she is currently running at 6 units an hour. As mentioned, she has a mild anion gap is closed is down to 8. Lactic acid levels have normalized. The chest x-ray was within normal. CAT scan of the abdomen was done and there was no evidence of any hepatic masses. 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 She is currently in normal sinus rhythm. She is on room air oxygen. She is resting comfortably in bed. She is very much arousable. She will follow commands and answer questions appropriately. She did have some clear liquid diet earlier this morning and she hasn't had a full meal yet. The UA is not showing any signs of an infection. She has elevated urine sugars consistent with her poorly controlled diabetes mellitus. Influenza screen was negative. TSH is normal. Lipase is normal. CPK is less than 20. On December 10 2019 patient seen in follow-up on general medical floor, she is much more awake on today's exam, she is oriented to person, she thought she was in [place], but she knew she was in the hospital, and patient was able to correctly identify the date and the year. Denies any acute complaints, her insulin drip has been transitioned to subcutaneous Levemir and Humalog sliding scale, her last blood sugar was 200, she is tolerating oral intake, no nausea vomiting or diarrhea, and the patient has some mild tenderness on palpation in the right upper quadrant. she remains on Rocephin and Diflucan us ability of urinary tract infection, urine culture is pending at this time, she remains on IV fluids currently on of type percent dextrose and half-normal saline at a rate of 150 ML per hour, she has been adequately fluid resuscitated, today's lab work has been reviewed, and white blood cell count is 18.3, hemoglobin is 9.5, platelet count is 387, sodium is 132, potassium is 4.2, CO2 is 26, BUN is 15 and creatinine 0.74. Vital signs are stable, blood pressures 1 6474, room air pulse ox is 94%, sinus rhythm on the monitor with a controlled rate, no complaints of shortness of breath, lung sounds are clear diminished at the bases, no complaints of nausea or vomiting or diarrhea, patient is bedbound at home, and discharge planning is working on obtaining the patient a Jade lift patient can use at home Objective - Vital Signs Vital signs: Vital Signs Temp 98.3 F 12/10/19 07:00 Pulse 85 12/10/19 07:00 Resp 18 12/10/19 07:00 BP 164/74 12/10/19 07:00 Pulse Ox 94 L 12/10/19 07:00 Intake & Output 12/09/19 12/10/19 12/10/19 18:59 06:59 18:59 Intake Total 1032.400 58.843 20.3 Balance 1032.400 58.843 20.3 Weight 99.79 kg Intake: Intake, IV Titration 792.400 58.843 20.3 Amount Insulin Regular 100 unit 42.400 58.843 20.3 In Sodium Chloride 0.9% 100 ml @ Titrate IV .Q0M BRANDY Rx#:[id number] Sodium Chloride 0.9% 1, 750 000 ml @ 150 mls/hr IV . Q6H40M BRANDY Rx#:[id number] Oral 240 Other: Voiding Method Bedpan Diaper Diaper Incontinent Incontinent Incontinent # Voids 2 - Exam GENERAL EXAM: Alert, very pleasant, 69-year-old morbidly obese white female, currently on room air, with a pulse ox of 94% comfortable in no apparent distress. HEAD: Normocephalic/atraumatic. EYES: Normal reaction of pupils, equal size. Conjunctiva pink, sclera white. NOSE: Clear with pink turbinates. THROAT: No erythema or exudates. NECK: No masses, no JVD, no thyroid enlargement, no adenopathy. CHEST: No chest wall deformity. Symmetrical expansion. LUNGS: Equal air entry with no crackles, wheeze, rhonchi or dullness. CVS: Regular rate and rhythm, normal S1 and S2, no gallops, no murmurs, no rubs ABDOMEN: Soft, slight tenderness on palpation in the right upper quadrant, with no rigidity, no nausea or vomiting. No hepatosplenomegaly, normal bowel sounds, no guarding or rigidity. EXTREMITIES: No clubbing, no edema, no cyanosis, 2+ pulses and upper and lower extremities. MUSCULOSKELETAL: Muscle strength and tone normal. SPINE: No scoliosis or deformity SKIN: No rashes CENTRAL NERVOUS SYSTEM: Alert and oriented -3. No focal deficits, tone is normal in all 4 extremities. PSYCHIATRIC: Alert and oriented -3. Appropriate affect. Intact judgment and insight. - Labs CBC & Chem 7: 12/10/19 06:33 12/10/19 03:17 Labs: Abnormal Lab Results - Last 24 Hours (Table) 12/09/19 12/09/19 12/09/19 Range/Units 02:20 12:25 12:46 WBC 20.6 H (3.8-10.6) k/uL Hgb 10.3 L (11.4-16.0) gm/dL Hct (34.0-46.0) % MCV (80.0-100.0) fL MCH 23.6 L (25.0-35.0) pg MCHC 29.0 L (31.0-37.0) g/dL Plt Count 586 H (150-450) k/uL Neutrophils # (Manual) (1.3-7.7) k/uL Monocytes # (Manual) (0-1.0) k/uL Sodium (137-145) mmol/L Glucose (74-99) mg/dL POC Glucose (mg/dL) 149 H (75-99) mg/dL Hemoglobin A1c 12.8 H (4.0-6.0) % Calcium (8.4-10.2) mg/dL Total Protein (6.3-8.2) g/dL Albumin (3.5-5.0) g/dL 12/09/19 12/09/19 12/09/19 Range/Units 15:59 17:01 18:01 WBC 24.1 H (3.8-10.6) k/uL Hgb 10.1 L (11.4-16.0) gm/dL Hct (34.0-46.0) % MCV 79.8 L (80.0-100.0) fL MCH 23.3 L (25.0-35.0) pg MCHC 29.1 L (31.0-37.0) g/dL Plt Count 530 H (150-450) k/uL Neutrophils # (Manual) 18.08 H (1.3-7.7) k/uL Monocytes # (Manual) 1.45 H (0-1.0) k/uL Sodium (137-145) mmol/L Glucose (74-99) mg/dL POC Glucose (mg/dL) 287 H 267 H (75-99) mg/dL Hemoglobin A1c (4.0-6.0) % Calcium (8.4-10.2) mg/dL Total Protein (6.3-8.2) g/dL Albumin (3.5-5.0) g/dL 12/09/19 12/09/19 12/09/19 Range/Units 18:01 18:04 20:00 WBC (3.8-10.6) k/uL Hgb (11.4-16.0) gm/dL Hct (34.0-46.0) % MCV (80.0-100.0) fL MCH (25.0-35.0) pg MCHC (31.0-37.0) g/dL Plt Count (150-450) k/uL Neutrophils # (Manual) (1.3-7.7) k/uL Monocytes # (Manual) (0-1.0) k/uL Sodium 132 L (137-145) mmol/L Glucose (74-99) mg/dL POC Glucose (mg/dL) 212 H 181 H (75-99) mg/dL Hemoglobin A1c (4.0-6.0) % Calcium (8.4-10.2) mg/dL Total Protein (6.3-8.2) g/dL Albumin (3.5-5.0) g/dL 12/09/19 12/09/19 12/09/19 Range/Units 20:09 21:51 23:55 WBC 22.6 H (3.8-10.6) k/uL Hgb 10.2 L (11.4-16.0) gm/dL Hct (34.0-46.0) % MCV 79.5 L (80.0-100.0) fL MCH 23.3 L (25.0-35.0) pg MCHC 29.3 L (31.0-37.0) g/dL Plt Count 492 H (150-450) k/uL Neutrophils # (Manual) (1.3-7.7) k/uL Monocytes # (Manual) (0-1.0) k/uL Sodium (137-145) mmol/L Glucose (74-99) mg/dL POC Glucose (mg/dL) 171 H 195 H (75-99) mg/dL Hemoglobin A1c (4.0-6.0) % Calcium (8.4-10.2) mg/dL Total Protein (6.3-8.2) g/dL Albumin (3.5-5.0) g/dL 12/10/19 12/10/19 12/10/19 Range/Units 02:11 03:17 03:17 WBC 17.8 H (3.8-10.6) k/uL Hgb 9.7 L (11.4-16.0) gm/dL Hct 33.3 L (34.0-46.0) % MCV (80.0-100.0) fL MCH 23.8 L (25.0-35.0) pg MCHC 29.2 L (31.0-37.0) g/dL Plt Count 470 H (150-450) k/uL Neutrophils # (Manual) 15.10 H (1.3-7.7) k/uL Monocytes # (Manual) (0-1.0) k/uL Sodium 132 L (137-145) mmol/L Glucose 200 H (74-99) mg/dL POC Glucose (mg/dL) 211 H (75-99) mg/dL Hemoglobin A1c (4.0-6.0) % Calcium 7.9 L (8.4-10.2) mg/dL Total Protein 5.3 L (6.3-8.2) g/dL Albumin 2.2 L (3.5-5.0) g/dL 12/10/19 12/10/19 12/10/19 Range/Units 03:54 05:54 06:33 WBC 18.3 H (3.8-10.6) k/uL Hgb 9.5 L (11.4-16.0) gm/dL Hct 30.9 L (34.0-46.0) % MCV (80.0-100.0) fL MCH 24.7 L (25.0-35.0) pg MCHC 30.6 L (31.0-37.0) g/dL Plt Count (150-450) k/uL Neutrophils # (Manual) (1.3-7.7) k/uL Monocytes # (Manual) (0-1.0) k/uL Sodium (137-145) mmol/L Glucose (74-99) mg/dL POC Glucose (mg/dL) 284 H 237 H (75-99) mg/dL Hemoglobin A1c (4.0-6.0) % Calcium (8.4-10.2) mg/dL Total Protein (6.3-8.2) g/dL Albumin (3.5-5.0) g/dL 12/10/19 12/10/19 Range/Units 08:02 10:02 WBC (3.8-10.6) k/uL Hgb (11.4-16.0) gm/dL Hct (34.0-46.0) % MCV (80.0-100.0) fL MCH (25.0-35.0) pg MCHC (31.0-37.0) g/dL Plt Count (150-450) k/uL Neutrophils # (Manual) (1.3-7.7) k/uL Monocytes # (Manual) (0-1.0) k/uL Sodium (137-145) mmol/L Glucose (74-99) mg/dL POC Glucose (mg/dL) 178 H 267 H (75-99) mg/dL Hemoglobin A1c (4.0-6.0) % Calcium (8.4-10.2) mg/dL Total Protein (6.3-8.2) g/dL Albumin (3.5-5.0) g/dL Microbiology - Last 24 Hours (Table) 12/08/19 20:13 Blood Culture - Preliminary Blood No Growth after 24 hours Assessment and Plan Plan: Assessment: 1 change in mental status secondary to hyperosmolar nonketotic coma with elevated blood sugars, improved with fluids and insulin therapy. The patient has been maintained on Levemir much 14 units in the morning and 16 units at nighttime and addition to NovoLog with meals 5 units and the scale insulin on outpatient basis . 2 acute lactic acidosis, recovered 3 Liver cancer/hepatocellular carcinoma status post localized chemotherapy 4 morbid obesity 5 obstructive sleep apnea 6 diabetes mellitus, type II 7 diabetic peripheral neuropathy 8 hypertension 9 previous bariatric surgery in the form of lap and that was subsequently removed 10 anxiety/depression 11 chronic atrial fibrillation 12 coronary artery disease with previous coronary intervention involving the LAD along with stenting 13 Lactic acidosis, mild 14 candidal intercrural infection 15previous history of septic shock secondary to UTI and vent-dependent history failure in 2013 16 left renal subcapsular hematoma, unchanged compared to September 2018 noted on the CAT scan of the abdomen and pelvis 17 spinal stenosis 18 chronic anemia 19 previous hospitalization for septic joint/ Plan: Patient's status has much improved with insulin infusion and rehydration, hemodynamically patient is stable, metabolic acidosis has resolved, anion gap has closed. She continues on empiric Invanz for possibility of urinary tract infection, no pulmonary complaints, room air pulse ox is 94%. Pulmonary/critical care services will sign off and follow with the patient on as-needed basis I performed a history & physical examination of the patient and discussed their management with my nurse practitioner, Alana Lester. I reviewed the nurse practitioner's note and agree with the documented findings and plan of care. Lung sounds are positive for diminished breath sounds at the bases. The findings and the impression was discussed with the patient. I attest to the documentation by the nurse practitioner. Time with Patient: Less than 30
[2019-12-10 11:54] LABS: Glucose,Whole Blood 300 mg/dL (75-99)
--- NOTE | 2019-12-10 12:26 | P.PN ---
Subjective Progress Note Date: 12/10/19 This is a 69-year-old female patient of Dr. Burnham with a previous medical history significant for coronary artery disease status post PCI and stent placement of the LAD back in 2009 with ischemic cardiomyopathy, hypertension and hypertensive perivascular disease with left ventricular hypertrophy, chronic kidney disease stage III, diabetes mellitus type 2, obstructive sleep apnea, CVA, paroxysmal atrial fibrillation. Patient was last admitted in October and discharged to [facility]. Patient was treated for acute urinary tract infection with generalized weakness, anemia, metabolic encephalop athy. Patient had a recent hospitalization and prior to that in September which time she was treated for hyperglycemia due to missing insulin dosing. The patient now presents with high blood sugars. Daughter was with the patient upon arrival to the emergency center. Patient apparently was not acting like herself for the past day with confusion and 5 falls. There was some nausea without vomiting. Blood sugar was checked at home which was extremely high and EMS was contacted and patient was transported to [facility] emergency center for evaluation. Patient was afebrile and vital signs stable. Patient was found to have a blood sugar 1234, sodium 126, potassium 6.0, chloride 88, CO2 21, BUN 22 and creatinine 0.94. WBC 13.3, hemoglobin 10.1, platelet count 572. Alkaline phosphatase 182, CK less than 20, lactic acid 7.7, TSH 2.590, lipase 14, albumin 2.7. Influenza testing negative. Urinalysis was moderate leukoesterase, RBCs 43 and bacteria moderate. Acetone was negative. Chest x- ray showed no acute cardio pulmonary disease. CAT scan of the brain showed cere bral atrophy and chronic small vessel ischemic changes. No acute intracranial abnormality. CAT scan of the neck showed multilevel spondylotic changes with some straightening CAT scan of the abdomen and pelvis revealed a left-sided renal subcapsular chronic Hematoma and Perinephric Hematoma. Decreased left renal function. Mass effect and displacement of the left kidney. No fracture seen. Minimal atelectasis of the lung bases. Patient was started on insulin drip, Rocephin, IV fluids and consult requested with Dr. Mcgee for ICU management and urology for subcapsular hematoma. Patient is seen in the emergency center and blood sugars currently 192 and electrolytes have returned to normal. Patient will be transitioned to [facility] with telemetry. Patient is awake and alert but confused regarding details of her admission and recent events. Patient did stop taking her insulin but is unable to state why. Patient's mentation is not at her known baseline. 12/10: Patient is awake and alert she is able to answer most questions but still has periods of confusion. The patient has significant rash to the perineal area and nystatin powder will be changed to cream and Diflucan added. Patient has been afebrile, heart rate 85, blood pressure 160/74, pulse ox 94% on room air. Repeat lab work reveals WBC 18.3, hemoglobin 9.5. Blood sugar at time of evaluation 178. Patient will be transitioned to Levemir, scheduled NovoLog and scale and insulin drip will be discontinued. staff training and development manager has discussed discharge planning with the patient's daughter and patient will be returning home. Patient is known to be nonambulatory and requires 2 people for transfer and a Jade lift will be ordered for home. Anticipate probable discharge on Friday. Review Of Systems: Constitutional: No fever, no chills, no night sweats. No weight change. Reports weakness. EENT: No headache. No blurred vision or double vision, no loss of vision. No nasal drainage or congestion. No epistaxis. No sore throat. Lungs: No shortness of breath, cough, no sputum production. No wheezing. Cardiovascular: No chest pain, no lower extremity edema. No palpitations. No paroxysmal nocturnal dyspnea. No orthopnea. No lightheadedness or dizziness. No syncopal episodes. Abdominal: No abdominal pain. No nausea, vomiting. No diarrhea. No constipation. No bloody or tarry stools.. No loss of appetite. Genitourinary: No dysuria, increased frequency, urgency. No urinary retention. Musculoskeletal: No myalgias. No muscle weakness, no gait dysfunction, no frequent falls. No back pain. No neck pain. Integumentary: No wounds, no lesions. Reports rash or pruritus. No unusual bruising. No change in hair or nails. Neurologic: No aphasia. No facial droop. No change in mentation. No head injury. No headache. No paralysis. No paresthesia. Psychiatric: No depression. No anxiety. No mood swings. Endocrine: Reports abnormal blood sugars. No weight change. No excessive sweating or thirst. No cold intolerance. Objective - Vital Signs Vital signs: Vital Signs Temp 98.3 F 12/10/19 07:00 Pulse 85 12/10/19 07:00 Resp 18 12/10/19 07:00 BP 164/74 12/10/19 07:00 Pulse Ox 94 L 12/10/19 07:00 Intake & Output 12/09/19 12/10/19 12/10/19 18:59 06:59 18:59 Intake Total 1032.400 58.843 20.3 Balance 1032.400 58.843 20.3 Weight 99.79 kg Intake: Intake, IV Titration 792.400 58.843 20.3 Amount Insulin Regular 100 unit 42.400 58.843 20.3 In Sodium Chloride 0.9% 100 ml @ Titrate IV .Q0M BRANDY Rx#:[id number] Sodium Chloride 0.9% 1, 750 000 ml @ 150 mls/hr IV . Q6H40M BRANDY Rx#:[id number] Oral 240 Other: Voiding Method Bedpan Diaper Incontinent Incontinent # Voids 2 - Exam General appearance: cooperative, no acute distress, obese, patient resting in bed - EENT Eyes: anicteric sclerae, PERRLA, normal appearance ENT: hearing grossly normal - Neck Neck: no lymphadenopathy, normal ROM, no other, no rigidity, no stridor, no thyromegaly - Respiratory Respiratory: bilateral: CTA, negative: diminished, dullness, rales, rhonchi - Cardiovascular Rhythm: regular Heart sounds: normal: S1, S2 Abnormal Heart Sounds: no systolic murmur, no diastolic murmur, no rub, no S3 Gallop - Gastrointestinal General gastrointestinal: normal bowel sounds, soft, tender in the left rib cage - Integumentary Integumentary: Excoriation noted to the perineal area - Neurologic Neurologic: CNII-XII intact - Musculoskeletal Musculoskeletal: gait normal, strength equal bilaterallytender in the left ankle, bilateral lower extremity paresthesia - Psychiatric Psychiatric: A&O x's 2-3, patient is having periods of confusion but able to answer most questions appropriately. - Labs CBC & Chem 7: 12/10/19 06:33 12/10/19 03:17 Labs: Abnormal Lab Results - Last 24 Hours (Table) 12/09/19 12/09/19 12/09/19 Range/Units 02:20 09:58 11:06 WBC (3.8-10.6) k/uL Hgb (11.4-16.0) gm/dL Hct (34.0-46.0) % MCV (80.0-100.0) fL MCH (25.0-35.0) pg MCHC (31.0-37.0) g/dL Plt Count (150-450) k/uL Neutrophils # (Manual) (1.3-7.7) k/uL Monocytes # (Manual) (0-1.0) k/uL Sodium (137-145) mmol/L Glucose (74-99) mg/dL POC Glucose (mg/dL) 247 H 192 H (75-99) mg/dL Hemoglobin A1c 12.8 H (4.0-6.0) % Calcium (8.4-10.2) mg/dL Total Protein (6.3-8.2) g/dL Albumin (3.5-5.0) g/dL 12/09/19 12/09/19 12/09/19 Range/Units 12:25 12:46 15:59 WBC 20.6 H (3.8-10.6) k/uL Hgb 10.3 L (11.4-16.0) gm/dL Hct (34.0-46.0) % MCV (80.0-100.0) fL MCH 23.6 L (25.0-35.0) pg MCHC 29.0 L (31.0-37.0) g/dL Plt Count 586 H (150-450) k/uL Neutrophils # (Manual) (1.3-7.7) k/uL Monocytes # (Manual) (0-1.0) k/uL Sodium (137-145) mmol/L Glucose (74-99) mg/dL POC Glucose (mg/dL) 149 H 287 H (75-99) mg/dL Hemoglobin A1c (4.0-6.0) % Calcium (8.4-10.2) mg/dL Total Protein (6.3-8.2) g/dL Albumin (3.5-5.0) g/dL 12/09/19 12/09/19 12/09/19 Range/Units 17:01 18:01 18:01 WBC 24.1 H (3.8-10.6) k/uL Hgb 10.1 L (11.4-16.0) gm/dL Hct (34.0-46.0) % MCV 79.8 L (80.0-100.0) fL MCH 23.3 L (25.0-35.0) pg MCHC 29.1 L (31.0-37.0) g/dL Plt Count 530 H (150-450) k/uL Neutrophils # (Manual) 18.08 H (1.3-7.7) k/uL Monocytes # (Manual) 1.45 H (0-1.0) k/uL Sodium 132 L (137-145) mmol/L Glucose (74-99) mg/dL POC Glucose (mg/dL) 267 H (75-99) mg/dL Hemoglobin A1c (4.0-6.0) % Calcium (8.4-10.2) mg/dL Total Protein (6.3-8.2) g/dL Albumin (3.5-5.0) g/dL 12/09/19 12/09/19 12/09/19 Range/Units 18:04 20:00 20:09 WBC 22.6 H (3.8-10.6) k/uL Hgb 10.2 L (11.4-16.0) gm/dL Hct (34.0-46.0) % MCV 79.5 L (80.0-100.0) fL MCH 23.3 L (25.0-35.0) pg MCHC 29.3 L (31.0-37.0) g/dL Plt Count 492 H (150-450) k/uL Neutrophils # (Manual) (1.3-7.7) k/uL Monocytes # (Manual) (0-1.0) k/uL Sodium (137-145) mmol/L Glucose (74-99) mg/dL POC Glucose (mg/dL) 212 H 181 H (75-99) mg/dL Hemoglobin A1c (4.0-6.0) % Calcium (8.4-10.2) mg/dL Total Protein (6.3-8.2) g/dL Albumin (3.5-5.0) g/dL 12/09/19 12/09/19 12/10/19 Range/Units 21:51 23:55 02:11 WBC (3.8-10.6) k/uL Hgb (11.4-16.0) gm/dL Hct (34.0-46.0) % MCV (80.0-100.0) fL MCH (25.0-35.0) pg MCHC (31.0-37.0) g/dL Plt Count (150-450) k/uL Neutrophils # (Manual) (1.3-7.7) k/uL Monocytes # (Manual) (0-1.0) k/uL Sodium (137-145) mmol/L Glucose (74-99) mg/dL POC Glucose (mg/dL) 171 H 195 H 211 H (75-99) mg/dL Hemoglobin A1c (4.0-6.0) % Calcium (8.4-10.2) mg/dL Total Protein (6.3-8.2) g/dL Albumin (3.5-5.0) g/dL 12/10/19 12/10/19 12/10/19 Range/Units 03:17 03:17 03:54 WBC 17.8 H (3.8-10.6) k/uL Hgb 9.7 L (11.4-16.0) gm/dL Hct 33.3 L (34.0-46.0) % MCV (80.0-100.0) fL MCH 23.8 L (25.0-35.0) pg MCHC 29.2 L (31.0-37.0) g/dL Plt Count 470 H (150-450) k/uL Neutrophils # (Manual) 15.10 H (1.3-7.7) k/uL Monocytes # (Manual) (0-1.0) k/uL Sodium 132 L (137-145) mmol/L Glucose 200 H (74-99) mg/dL POC Glucose (mg/dL) 284 H (75-99) mg/dL Hemoglobin A1c (4.0-6.0) % Calcium 7.9 L (8.4-10.2) mg/dL Total Protein 5.3 L (6.3-8.2) g/dL Albumin 2.2 L (3.5-5.0) g/dL 12/10/19 12/10/19 12/10/19 Range/Units 05:54 06:33 08:02 WBC 18.3 H (3.8-10.6) k/uL Hgb 9.5 L (11.4-16.0) gm/dL Hct 30.9 L (34.0-46.0) % MCV (80.0-100.0) fL MCH 24.7 L (25.0-35.0) pg MCHC 30.6 L (31.0-37.0) g/dL Plt Count (150-450) k/uL Neutrophils # (Manual) (1.3-7.7) k/uL Monocytes # (Manual) (0-1.0) k/uL Sodium (137-145) mmol/L Glucose (74-99) mg/dL POC Glucose (mg/dL) 237 H 178 H (75-99) mg/dL Hemoglobin A1c (4.0-6.0) % Calcium (8.4-10.2) mg/dL Total Protein (6.3-8.2) g/dL Albumin (3.5-5.0) g/dL Microbiology - Last 24 Hours (Table) 12/08/19 20:13 Blood Culture - Preliminary Blood No Growth after 24 hours Assessment and Plan Plan: 1. Metabolic encephalopathy secondary to hyperglycemia and electrolyte abnormalities. 2. Hyperosmolar nonketotic coma with initial blood sugar of 1234. Patient is currently on insulin drip and will be transitioned to Levemir 14 units in the morning and 16 units in the evening along with NovoLog 5 units with meals and scale. Consistent carb diet. Consult with Dr. Mcgee appreciated. 3. Acute lactic acidosis secondary to hyperosmolar nonketotic hyperglycemia, resolved. 4. Recent treatment for urinary tract infection. Patient will be placed on Rocephin, repeat urine culture will be obtained. 5. Recent hospitalization for generalized weakness, metabolic encephalopathy secondary to UTI requiring discharge to subacute rehab at [facility]. Patient has been subsequently discharged. PT OT and social work for possible rehab. Hold fentanyl patch, gabapentin, Vesicare. 6. Electrolyte abnormalities with hyponatremia, hyperkalemia, hypo-chloremia secondary to hyperosmolar nonketotic hyperglycemia, resolved. 7. Diabetes mellitus type 2, insulin requiring, uncontrolled with hyperglycemia and hemoglobin A1c of 12. Patient is noncompliant with medications. 8. Anemia of chronic illness. 9. Chronic pain syndrome. Hold fentanyl patch and gabapentin for now. Tylenol as needed for pain. 10. Hypertension, hypertensive cardiovascular disease. Continue Norvasc 5 mg daily, Lopressor 25 mg twice daily. 11. Paroxysmal atrial fibrillation, currently in a sinus rhythm. Continue Lopressor. 12. History of liver cancer status post chemotherapy under the care of hematology oncology at [facility]. 13. Hyperlipidemia. Continue atorvastatin 40 mg at bedtime. 14. COPD without exacerbation. 15. History of coronary artery disease with previous myocardial infarction and PCI of the LAD. Continue aspirin, metoprolol, Lipitor. 16. Recurrent depression. Continue Effexor. 17. Overactive bladder. Hold Vesicare. CODE STATUS: Full code. Discharge plan: Home on Friday with [facility]. Jade lift ordered. Impression and plan of care have been directed as dictated by the signing physician. Clare Mak nurse practitioner acting as scribe for signing physician.
[2019-12-10 14:21] LABS: Glucose,Whole Blood 311 mg/dL (75-99)
[2019-12-10 14:52] VITALS: BMI 38.9
[2019-12-10 16:02] LABS: Glucose,Whole Blood 288 mg/dL (75-99)
[2019-12-10] MEDS: ACETAMINOPHEN TAB 325 MG TAB PO PRN (17:51)
[2019-12-10 18:20] LABS: Glucose,Whole Blood 348 mg/dL (75-99)
[2019-12-10 20:06] LABS: Glucose,Whole Blood 323 mg/dL (75-99)
[2019-12-10] MEDS: ATORVASTATIN 40 MG TAB PO SCH (20:45)
[2019-12-10 21:15] LABS: Hypochromasia Marked; MCH 23.7 pg (25.0-35.0); MCHC 28.7 g/dL (31.0-37.0); MCV 82.5 fL (80.0-100.0); Mean Platelet Volume 7.9; Platelet Count 465 k/uL (150-450); RBC 4.24 m/uL (3.80-5.40); RDW 14.9 % (11.5-15.5)
[2019-12-10 22:01] LABS: Glucose,Whole Blood 251 mg/dL (75-99)
[2019-12-11 00:03] LABS: Glucose,Whole Blood 200 mg/dL (75-99)
[2019-12-11 02:05] LABS: Glucose,Whole Blood 211 mg/dL (75-99)
[2019-12-11] MEDS: ACETAMINOPHEN TAB 325 MG TAB PO PRN (02:35)
[2019-12-11 04:05] LABS: Glucose,Whole Blood 206 mg/dL (75-99)
[2019-12-11] MEDS: DEXTROSE 5%-0.45% NACL 1,000 ML IV SCH ×4 (05:41→20:29)
[2019-12-11] MEDS: SODIUM CHLORIDE 0.9% 1,000 ML IV SCH ×3 (05:42→18:51)
[2019-12-11 06:05] LABS: Glucose,Whole Blood 206 mg/dL (75-99)
[2019-12-11 08:00] LABS: HGB 9.9 gm/dL (11.4-16.0); Hypochromasia Marked; MCH 24.4 pg (25.0-35.0); MCHC 29.9 g/dL (31.0-37.0); MCV 81.7 fL (80.0-100.0); Mean Platelet Volume 8.2; Platelet Count 428 k/uL (150-450); RBC 4.03 m/uL (3.80-5.40); RDW 15.6 % (11.5-15.5); WBC 14.8 k/uL (3.8-10.6)
[2019-12-11 08:21] LABS: Glucose,Whole Blood 305 mg/dL (75-99)
[2019-12-11] MEDS: INSULIN DETEMIR (LEVEMIR) 100 UNIT/ML SYR SQ SCH ×2 (09:08→20:32)
[2019-12-11] MEDS: INSULIN ASPART (NovoLOG) 100 UNIT/ML VIAL SQ SCH ×7 (09:08→20:28)
[2019-12-11] MEDS: PANTOPRAZOLE 40 MG TABLET PO SCH (09:10)
[2019-12-11] MEDS: FLUCONAZOLE 100 MG TAB PO SCH (09:10)
[2019-12-11] MEDS: BISACODYL 5 MG TABLET.DR PO SCH (09:10)
[2019-12-11] MEDS: METOPROLOL TARTRATE 25 MG TAB PO SCH ×2 (09:10→20:10)
[2019-12-11] MEDS: amLODIPine 5 MG TAB PO SCH (09:10)
[2019-12-11] MEDS: ASPIRIN 81 MG PO SCH (09:10)
[2019-12-11] MEDS: VENLAFAXINE HCL 75 MG TAB PO SCH ×2 (09:10→20:11)
[2019-12-11] MEDS: HEPARIN SODIUM,PORCINE 5,000 UNIT/ML 1 ML VIAL SQ SCH ×2 (09:11→20:15)
[2019-12-11 11:33] LABS: Glucose,Whole Blood 401 mg/dL (75-99)
[2019-12-11] MEDS: NYSTATIN 100,000UNIT/GM CREAM 30 GM TUBE TOPICAL SCH ×3 (12:09→20:16)
--- NOTE | 2019-12-11 12:15 | P.PN ---
Subjective Progress Note Date: 12/11/19 This is a 69-year-old female patient of Dr. Burnham with a previous medical history significant for coronary artery disease status post PCI and stent placement of the LAD back in 2009 with ischemic cardiomyopathy, hypertension and hypertensive perivascular disease with left ventricular hypertrophy, chronic kidney disease stage III, diabetes mellitus type 2, obstructive sleep apnea, CVA, paroxysmal atrial fibrillation. Patient was last admitted in October and discharged to [facility]. Patient was treated for acute urinary tract infection with generalized weakness, anemia, metabolic encephalopa thy. Patient had a recent hospitalization and prior to that in September which time she was treated for hyperglycemia due to missing insulin dosing. The patient now presents with high blood sugars. Daughter was with the patient upon arrival to the emergency center. Patient apparently was not acting like herself for the past day with confusion and 5 falls. There was some nausea without vomiting. Blood sugar was checked at home which was extremely high and EMS was contacted and patient was transported to [facility] emergency center for evaluation. Patient was afebrile and vital signs stable. Patient was found to have a blood sugar 1234, sodium 126, potassium 6.0, chloride 88, CO2 21, BUN 22 and creatinine 0.94. WBC 13.3, hemoglobin 10.1, platelet count 572. Alkaline phosphatase 182, CK less than 20, lactic acid 7.7, TSH 2.590, lipase 14, albumin 2.7. Influenza testing negative. Urinalysis was moderate leukoesterase, RBCs 43 and bacteria moderate. Acetone was negative. Chest x- ray showed no acute cardio pulmonary disease. CAT scan of the brain showed cerebral atrophy and chronic small vessel ischemic changes. No acute intracranial abnormality. CAT scan of the neck showed multilevel spondylotic changes with some straightening CAT scan of the abdomen and pelvis revealed a left-sided renal subcapsular chronic Hematoma and Perinephric Hematoma. Decrea sed left renal function. Mass effect and displacement of the left kidney. No fracture seen. Minimal atelectasis of the lung bases. Patient was started on insulin drip, Rocephin, IV fluids and consult requested with Dr. Mcgee for ICU management and urology for subcapsular hematoma. Patient is seen in the emergency center and blood sugars currently 192 and electrolytes have returned to normal. Patient will be transitioned to [facility] with telemetry. Patient is awake and alert but confused regarding details of her admission and recent events. Patient did stop taking her insulin but is unable to state why. Patient's mentation is not at her known baseline. 12/10: Patient is awake and alert she is able to answer most questions but still has periods of confusion. The patient has significant rash to the perineal area and nystatin powder will be changed to cream and Diflucan added. Patient has been afebrile, heart rate 85, blood pressure 160/74, pulse ox 94% on room air. Repeat lab work reveals WBC 18.3, hemoglobin 9.5. Blood sugar at time of evaluation 178. Patient will be transitioned to Levemir, scheduled NovoLog and scale and insulin drip will be discontinued. it communications manager has discussed discharge planning with the patient's daughter and patient will be returning home. Patient is known to be nonambulatory and requires 2 people for transfer and a Jade lift will be ordered for home. Anticipate probable discharge on Friday. 12/11: Patient is alert and awake lying in bed complaining of not feeling well today. Patient states that she is not ready to go home today she has increased back pain and just generally not feeling well. Patient is requesting additional pain meds specifically Dilaudid to help with pain. Patient sees Dr. Gonzalez for pain management who prescribes her fentanyl patch only. Patient states that she has tried [place] in the past however it does not help. Patient's blood glucose this morning was 305. She was given her home insulins. We anticipate probable discharge on Friday. Review Of Systems: Constitutional: Reports general feeling unwell No fever, no chills, no night sweats. No weight change. Reports weakness. EENT: No headache. No blurred vision or double vision, no loss of vision. No nasal drainage or congestion. No epistaxis. No sore throat. Lungs: No shortness of breath, cough, no sputum production. No wheezing. Cardiovascular: No chest pain, no lower extremity edema. No palpitations. No paroxysmal nocturnal dyspnea. No orthopnea. No lightheadedness or dizziness. No syncopal episodes. Abdominal: No abdominal pain. No nausea, vomiting. No diarrhea. No constipation. No bloody or tarry stools.. No loss of appetite. Genitourinary: No dysuria, increased frequency, urgency. No urinary retention. Musculoskeletal: No myalgias. No muscle weakness, no gait dysfunction, no frequent falls. Reports back pain. No neck pain. Integumentary: No wounds, no lesions. Reports rash or pruritus. No unusual br uising. No change in hair or nails. Neurologic: No aphasia. No facial droop. No change in mentation. No head injury. No headache. No paralysis. No paresthesia. Psychiatric: No depression. No anxiety. No mood swings. Objective - Vital Signs Vital signs: Vital Signs Temp 98.2 F 12/11/19 07:00 Pulse 67 12/11/19 07:00 Resp 16 12/11/19 11:02 BP 128/65 12/11/19 07:00 Pulse Ox 95 12/11/19 07:00 Intake & Output 12/10/19 12/11/19 12/11/19 18:59 06:59 18:59 Intake Total 1330.3 Balance 1330.3 Weight 99.79 kg Intake: Intake, IV Titration 1170.3 Amount Dextrose 5%-0.45% NaCl 1, 1050 000 ml @ 150 mls/hr IV . Q6H40M BRANDY Rx#:[id number] Insulin Regular 100 unit 20.3 In Sodium Chloride 0.9% 100 ml @ Titrate IV .Q0M BRANDY Rx#:[id number] cefTRIAXone 1 gm In 100 Sodium Chloride 0.9% 50 ml @ 100 mls/hr IVPB HS BRANDY Rx#:[id number] Oral 160 Other: Voiding Method Diaper Diaper Incontinent Incontinent # Voids 1 - Exam General Appearance: Alert, cooperative, no distress, appears older stated age. Neck HEENT: Supple, no lymphadenopathy, no thyroid enlargement, no carotid bruits. Lungs: Clear to auscultation without crackles or wheezes no rhonchi, no deformity. Chest Wall: Chest wall normal expansion with deep inspiration no tenderness and no deformity was found on exam, no costochondral pain or discomfort. Heart: Regular rate and rhythm, S1, S2 normal, no murmur, rub or gallop. Back: Symmetric, no curvature, ROM normal, no CVA tenderness. Abdomen: Soft, non-tender, no rebound or rigidity, no hepatosplenomegaly. Extremities: Extremities normal, atraumatic, no cyanosis or edema. Generalized weakness Pulses: 2+ and symmetric. Skin: Skin color, texture, tugor normal, no rashes or lesions. Neurologic: Alert oriented x3 cranial nerves II through XII intact, no motor deficit, - Labs CBC & Chem 7: 12/11/19 07:30 12/10/19 03:17 Labs: Abnormal Lab Results - Last 24 Hours (Table) 12/10/19 12/10/19 12/10/19 Range/Units 14:19 16:00 18:18 WBC (3.8-10.6) k/uL Hgb (11.4-16.0) gm/dL Hct (34.0-46.0) % MCH (25.0-35.0) pg MCHC (31.0-37.0) g/dL RDW (11.5-15.5) % Plt Count (150-450) k/uL POC Glucose (mg/dL) 311 H 288 H 348 H (75-99) mg/dL 12/10/19 12/10/19 12/10/19 Range/Units 20:04 20:57 21:58 WBC 15.0 H (3.8-10.6) k/uL Hgb 10.0 L (11.4-16.0) gm/dL Hct (34.0-46.0) % MCH 23.7 L (25.0-35.0) pg MCHC 28.7 L (31.0-37.0) g/dL RDW (11.5-15.5) % Plt Count 465 H (150-450) k/uL POC Glucose (mg/dL) 323 H 251 H (75-99) mg/dL 12/11/19 12/11/19 12/11/19 Range/Units 00:00 01:59 04:00 WBC (3.8-10.6) k/uL Hgb (11.4-16.0) gm/dL Hct (34.0-46.0) % MCH (25.0-35.0) pg MCHC (31.0-37.0) g/dL RDW (11.5-15.5) % Plt Count (150-450) k/uL POC Glucose (mg/dL) 200 H 211 H 206 H (75-99) mg/dL 12/11/19 12/11/19 12/11/19 Range/Units 06:00 07:30 08:20 WBC 14.8 H (3.8-10.6) k/uL Hgb 9.9 L (11.4-16.0) gm/dL Hct 33.0 L (34.0-46.0) % MCH 24.4 L (25.0-35.0) pg MCHC 29.9 L (31.0-37.0) g/dL RDW 15.6 H (11.5-15.5) % Plt Count (150-450) k/uL POC Glucose (mg/dL) 206 H 305 H (75-99) mg/dL 12/11/19 Range/Units 11:32 WBC (3.8-10.6) k/uL Hgb (11.4-16.0) gm/dL Hct (34.0-46.0) % MCH (25.0-35.0) pg MCHC (31.0-37.0) g/dL RDW (11.5-15.5) % Plt Count (150-450) k/uL POC Glucose (mg/dL) 401 H (75-99) mg/dL Microbiology - Last 24 Hours (Table) 12/08/19 20:13 Blood Culture - Preliminary Blood No Growth after 48 hours Assessment and Plan Plan: 1. Metabolic encephalopathy secondary to hyperglycemia and electrolyte abnormalities. 2. Hyperosmolar nonketotic coma with initial blood sugar of 1234. Patient is currently on insulin drip and will be transitioned to Levemir 14 units in the morning and 16 units in the evening along with NovoLog 5 units with meals and scale. Consistent carb diet. Consult with Dr. Arely dowell. 3. Acute lactic acidosis secondary to hyperosmolar nonketotic hyperglycemia, resolved. 4. Recent treatment for urinary tract infection. Patient will be placed on Rocephin, repeat urine culture will be obtained. 5. Recent hospitalization for generalized weakness, metabolic encephalopathy secondary to UTI requiring discharge to subacute rehab at [facility]. Patient has been subsequently discharged. PT OT and social work for possible rehab. Hold fentanyl patch, gabapentin, Vesicare. 6. Electrolyte abnormalities with hyponatremia, hyperkalemia, hypo-chloremia secondary to hyperosmolar nonketotic hyperglycemia, resolved. 7. Diabetes mellitus type 2, insulin requiring, uncontrolled with hyperglycemia and hemoglobin A1c of 12. Patient is noncompliant with medications. 8. Anemia of chronic illness. 9. Chronic pain syndrome. Hold fentanyl patch and gabapentin for now. Tylenol as needed for pain. Dilaudid 0.5 mg as needed twice a day. 10. Hypertension, hypertensive cardiovascular disease. Continue Norvasc 5 mg daily, Lopressor 25 mg twice daily. 11. Paroxysmal atrial fibrillation, currently in a sinus rhythm. Continue Lopressor. 12. History of liver cancer status post chemotherapy under the care of hematology oncology at [facility]. 13. Hyperlipidemia. Continue atorvastatin 40 mg at bedtime. 14. COPD without exacerbation. 15. History of coronary artery disease with previous myocardial infarction and PCI of the LAD. Continue aspirin, metoprolol, Lipitor. 16. Recurrent depression. Continue Effexor. 17. Overactive bladder. Hold Vesicare. CODE STATUS: Full code. Discharge plan: Possibly home on Friday with [facility]. Jade lift ordered. Impression and plan of care have been directed as dictated by the signing physician. Donna Prasad nurse practitioner acting as scribe for signing physician.
[2019-12-11] MEDS: HYDROmorphone 0.5 MG/0.5 ML SYRINGE IVP PRN ×3 (12:24→20:16)
[2019-12-11 14:29] LABS: Glucose,Whole Blood 235 mg/dL (75-99)
[2019-12-11 15:36] LABS: Glucose,Whole Blood 220 mg/dL (75-99)
[2019-12-11 16:46] LABS: Glucose,Whole Blood 219 mg/dL (75-99)
[2019-12-11 20:07] LABS: Glucose,Whole Blood 228 mg/dL (75-99)
[2019-12-11] MEDS: ATORVASTATIN 40 MG TAB PO SCH (20:11)
[2019-12-11 21:09] LABS: HGB 9.7 gm/dL (11.4-16.0); Hypochromasia Marked; MCH 25.3 pg (25.0-35.0); MCHC 31.2 g/dL (31.0-37.0); MCV 81.1 fL (80.0-100.0); Mean Platelet Volume 8.1; Platelet Count 383 k/uL (150-450); RBC 3.82 m/uL (3.80-5.40); RDW 15.6 % (11.5-15.5); WBC 13.4 k/uL (3.8-10.6)
[2019-12-12] MEDS: SODIUM CHLORIDE 0.9% 1,000 ML IV SCH ×2 (00:05→12:55)
[2019-12-12] MEDS: ACETAMINOPHEN TAB 325 MG TAB PO PRN ×2 (01:21→10:17)
[2019-12-12] MEDS: DEXTROSE 5%-0.45% NACL 1,000 ML IV SCH (02:23)
[2019-12-12] MEDS ORDERED: HYDROmorphone 0.5 MG/0.5 ML SYRINGE IVP STA (05:55)
[2019-12-12 06:39] LABS: Basophils % (A) 0 %; Eosinophils # (A) 0.2 k/uL (0-0.7); Eosinophils % (A) 1 %; HCT 34.6 % (34.0-46.0); Hypochromasia Marked; Lymphocytes # (A) 2.1 k/uL (1.0-4.8); Lymphocytes % (A) 15 %; MCH 23.4 pg (25.0-35.0); MCHC 28.9 g/dL (31.0-37.0); MCV 80.8 fL (80.0-100.0); Mean Platelet Volume 7.2; Monocytes # (A) 0.5 k/uL (0-1.0); Monocytes % (A) 3 %; Neutrophils # (A) 10.7 k/uL (1.3-7.7); Neutrophils % (A) 79 %; Platelet Count 454 k/uL (150-450); RBC 4.28 m/uL (3.80-5.40); RDW 15.3 % (11.5-15.5); WBC 13.5 k/uL (3.8-10.6)
[2019-12-12 06:57] LABS: African American GFR (CKD) >90 (>60 ml/min/1.73 sqM); Anion Gap 6 mmol/L; Blood Urea Nitrogen 10 mg/dL (7-17); Calcium 8.1 mg/dL (8.4-10.2); Carbon Dioxide 27 mmol/L (22-30); Chloride 99 mmol/L (98-107); Glucose 190 mg/dL (74-99); Non-African American GFR(CKD) 88 (>60 ml/min/1.73 sqM); Potassium 4.3 mmol/L (3.5-5.1); Sodium 132 mmol/L (137-145)
[2019-12-12 07:05] LABS: Glucose,Whole Blood 211 mg/dL (75-99)
[2019-12-12] MEDS: HEPARIN SODIUM,PORCINE 5,000 UNIT/ML 1 ML VIAL SQ SCH (08:10)
[2019-12-12] MEDS: INSULIN ASPART (NovoLOG) 100 UNIT/ML VIAL SQ SCH ×4 (08:10→12:49)
[2019-12-12] MEDS: PANTOPRAZOLE 40 MG TABLET PO SCH (08:11)
[2019-12-12] MEDS: METOPROLOL TARTRATE 25 MG TAB PO SCH (08:11)
[2019-12-12] MEDS: BISACODYL 5 MG TABLET.DR PO SCH (08:11)
[2019-12-12] MEDS: ASPIRIN 81 MG PO SCH (08:11)
[2019-12-12] MEDS: INSULIN DETEMIR (LEVEMIR) 100 UNIT/ML SYR SQ SCH (08:11)
[2019-12-12] MEDS: FLUCONAZOLE 100 MG TAB PO SCH (08:11)
[2019-12-12] MEDS: amLODIPine 5 MG TAB PO SCH (08:11)
[2019-12-12] MEDS: VENLAFAXINE HCL 75 MG TAB PO SCH (08:13)
[2019-12-12] MEDS: NYSTATIN 100,000UNIT/GM CREAM 30 GM TUBE TOPICAL SCH (10:18)
--- NOTE | 2019-12-12 10:20 | P.DS ---
Providers Date of admission: 12/09/19 00:20 Attending physician: Shane Burnham Consults: 12/09/19 00:21 Consult Physician Urgent Consulting Provider: Jama Mcgee Consult Reason/Comments: acute n/v, hhnk, lactic acidosis Do you want consulting provider notified?: Already Contacted 12/09/19 00:24 Consult Physician Urgent Consulting Provider: Eugene De La Rosa Consult Reason/Comments: subcapsular hematoma Do you want consulting provider notified?: Yes Primary care physician: Shane Burnham [place] [facility] Course: This is a 69-year-old female patient of Dr. Burnahm with a previous medical history significant for coronary artery disease status post PCI and stent placement of the LAD back in 2009 with ischemic cardiomyopathy, hypertension and hypertensive perivascular disease with left ventricular h ypertrophy, chronic kidney disease stage III, diabetes mellitus type 2, obstructive sleep apnea, CVA, paroxysmal atrial fibrillation. Patient was last admitted in October and discharged to [facility]. Patient was treated for acute urinary tract infection with generalized weakness, anemia, metabolic encephalopathy. Patient had a recent hospitalization and prior to that in September which time she was treated for hyperglycemia due to missing insulin dosing. The patient now presents with high blood sugars. Daughter was with the patient upon arrival to the emergency center. Patient apparently was not acting like herself for the past day with confusion and 5 falls. There was some nausea without vomiting. Blood sugar was checked at home which was extremely high and EMS was contacted and patient was transported to [facility] emergency center for evaluation. Patient was afebrile and vital signs stable. Patient was found to have a blood sugar 1234, sodium 126, potassium 6.0, chloride 88, CO2 21, BUN 22 and creatinine 0.94. WBC 13.3, hemoglobin 10.1, platelet count 572. Alkaline phosphatase 182, CK less than 20, lactic acid 7.7, TSH 2.590, lipase 14, albumin 2.7. Influenza testing negative. Urinalysis was moderate leukoesterase, RBCs 43 and bacteria moderate. Acetone was negative. Chest x-ray showed no acute cardio pulmonary disease. CAT scan of the brain s howed cerebral atrophy and chronic small vessel ischemic changes. No acute intracranial abnormality. CAT scan of the neck showed multilevel spondylotic changes with some straightening CAT scan of the abdomen and pelvis revealed a left-sided renal subcapsular chronic Hematoma and Perinephric Hematoma. Decreased left renal function. Mass effect and displacement of the left kidney. No fracture seen. Minimal atelectasis of the lung bases. Patient was started on insulin drip, Rocephin, IV fluids and consult requested with Dr. Mcgee for ICU management and urology for subcapsular hematoma. Patient is seen in the emergency center and blood sugars currently 192 and electrolytes have returned to normal. Patient will be transitioned to [facility] with telemetry. Patient is awake and alert but confused regarding details of her admission and recent events. Patient did stop taking her insulin but is unable to state why. Patient's mentation is not at her known baseline. 12/10: Patient is awake and alert she is able to answer most questions but still has periods of confusion. The patient has significant rash to the perineal area and nystatin powder will be changed to cream and Diflucan added. Patient has been afebrile, heart rate 85, blood pressure 160/74, pulse ox 94% on room air. Repeat lab work reveals WBC 18.3, hemoglobin 9.5. Blood sugar at time of evaluation 178. Patient will be transitioned to Levemir, scheduled NovoLog and scale and insulin drip will be discontinued. manager technical support has discussed discharge planning with the patient's daughter and patient will be returning home. Patient is known to be nonambulatory and requires 2 people for transfer and a Jade lift will be ordered for home. Anticipate probable discharge on Friday. 12/11: Patient is alert and awake lying in bed complaining of not feeling well today. Patient states that she is not ready to go home today she has increased back pain and just generally not feeling well. Patient is requesting additional pain meds specifically Dilaudid to help with pain. Patient sees Dr. Gonzalez for pain management who prescribes her fentanyl patch only. Patient states that she has tried [place] in the past however it does not help. Patient's blood glucose this morning was 305. She was given her home insulins. We anticipate probable discharge on Friday. 2: Patient is still complaining of pain requesting more pain medicine. Patient says that her appetite is still decreased and she is feeling fatigued. Overall she's feeling lousy however she is ready to go home today. We will continue with oral antibiotics for 7 days at home. Patient will be going home with daughter and son-in-law. Jade lift was ordered for home. Discharge diagnosis: 1. Metabolic encephalopathy secondary to hyperglycemia and electrolyte abnormalities. 2. Hyperosmolar nonketotic coma with initial blood sugar of 1234. 3. Acute lactic acidosis secondary to hyperosmolar nonketotic hyperglycemia, 4. Recent treatment for urinary tract infection. 5. Recent hospitalization for generalized weakness, metabolic encephalopathy secondary to UTI 6. Electrolyte abnormalities with hyponatremia, hyperkalemia, hypo-chloremia secondary to hyperosmolar nonketotic hyperglycemia, 7. Diabetes mellitus type 2, insulin requiring, uncontrolled with hyperglycemia and hemoglobin A1c of 12. 8. Anemia of chronic illness. 9. Chronic pain syndrome. 10. Hypertension, hypertensive cardiovascular disease. 11. Paroxysmal atrial fibrillation, currently in a sinus rhythm. 12. History of liver cancer status post chemotherapy 13. Hyperlipidemia. 14. COPD without exacerbation. 15. History of coronary artery disease with previous myocardial infarction and PCI of the LAD. 16. Recurrent depression. 17. Overactive bladder. Disposition: home with [facility]. Jade lift ordered. Impression and plan of care have been directed as dictated by the signing physician. Donna Prasad nurse practitioner acting as scribe for signing physician. Patient Condition at Discharge: Serious Plan - Discharge Summary Discharge Rx Participant: No New Discharge Prescriptions: New Cefuroxime [Ceftin] 250 mg PO BID #14 tab Continue Atorvastatin [Lipitor] 40 mg PO HS #30 tablet amLODIPine [Norvasc] 5 mg PO DAILY #30 tab Solifenacin Succinate [Vesicare] 10 mg PO HS Pantoprazole Sodium 40 mg PO DAILY Ondansetron [Zofran] 4 mg PO Q8H PRN PRN Reason: Nausea Gabapentin [Neurontin] 600 mg PO HS Nystatin [Nystop] 1 applic TOPICAL DAILY PRN PRN Reason: Skin Irritation Bisacodyl [Dulcolax] 5 mg PO QAM Venlafaxine HCl [Effexor] 150 mg PO HS Venlafaxine HCl [Effexor] 75 mg PO QAM Aspirin [Adult Low Dose Aspirin EC] 81 mg PO DAILY rOPINIRole HCL [Requip] 0.25 mg PO HS Metoprolol Tartrate 25 mg PO BID Gabapentin [Neurontin] 300 mg PO QAM Meclizine HCl 25 mg PO DAILY PRN PRN Reason: Vertigo fentaNYL 50MCG/HR PATCH [Duragesic 50MCG/HR] 1 patch TRANSDERM Q72H patch INSULIN ASPART (NovoLOG) [NovoLOG (formulary)] 5 unit SQ AC-TID INSULIN ASPART (NovoLOG) [NovoLOG (formulary)] See Protocol SQ ACHS Insulin Detemir [Levemir Flextouch] 14 units SQ AC-BRKFST Insulin Detemir [Levemir Flextouch] 16 units SQ HS Discharge Medication List Atorvastatin [Lipitor] 40 mg PO HS #30 tablet 04/06/14 [Rx] amLODIPine [Norvasc] 5 mg PO DAILY #30 tab 04/06/14 [Rx] Pantoprazole Sodium 40 mg PO DAILY 08/10/14 [History] Solifenacin Succinate [Vesicare] 10 mg PO HS 08/10/14 [History] Ondansetron [Zofran] 4 mg PO Q8H PRN 03/26/16 [History] Gabapentin [Neurontin] 600 mg PO HS 04/02/16 [History] Nystatin [Nystop] 1 applic TOPICAL DAILY PRN 02/14/17 [History] Bisacodyl [Dulcolax] 5 mg PO QAM 05/18/17 [History] Venlafaxine HCl [Effexor] 75 mg PO QAM 05/18/17 [History] Venlafaxine HCl [Effexor] 150 mg PO HS 05/18/17 [History] Aspirin [Adult Low Dose Aspirin EC] 81 mg PO DAILY 09/14/18 [History] rOPINIRole HCL [Requip] 0.25 mg PO HS 06/06/19 [History] Metoprolol Tartrate 25 mg PO BID 10/07/19 [History] Gabapentin [Neurontin] 300 mg PO QAM 10/28/19 [History] Meclizine HCl 25 mg PO DAILY PRN 10/28/19 [History] fentaNYL 50MCG/HR PATCH [Duragesic 50MCG/HR] 1 patch TRANSDERM Q72H patch 11/02/19 [Rx] INSULIN ASPART (NovoLOG) [NovoLOG (formulary)] 5 unit SQ AC-TID 12/09/19 [History] INSULIN ASPART (NovoLOG) [NovoLOG (formulary)] See Protocol SQ ACHS 12/09/19 [History] Insulin Detemir [Levemir Flextouch] 14 units SQ AC-BRKFST 12/09/19 [History] Insulin Detemir [Levemir Flextouch] 16 units SQ HS 12/09/19 [History] Cefuroxime [Ceftin] 250 mg PO BID #14 tab 12/12/19 [Rx] Follow up Appointment(s)/Referral(s): [facility], [NON-STAFF] - [facility],Equipment [NON-STAFF] - Shane Burnham MD [Primary Care Provider] - 1 Week Activity/Diet/Wound Care/Special Instructions: 1. [facility] will deliver Jade Lift to patient's home on 12/11/2019. 2. [facility] will open with patient after she is seen by [facility].
[2019-12-12 12:01] LABS: Glucose,Whole Blood 186 mg/dL (75-99)
[2019-12-12 15:20] VITALS: BP 113/67; PULSE 74; RESP 16; TEMP 98.1
== END 2019-12-12 16:26 | disposition home or self-care (01) | DRG 637 ==
LOC: EC 20:41 → 2SICU 12-09 00:20 → 4SSUR 12-09 14:46
PROVIDERS: ADMIT Internal Medicine Geriatric Medicine; ATTEND Internal Medicine Geriatric Medicine
DX: E11.01 Type 2 diabetes mellitus with hyperosmolarity with coma (principal); G93.41 Metabolic encephalopathy; E87.2 Acidosis; E87.1 Hypo-osmolality and hyponatremia; F33.9 Major depressive disorder, recurrent, unspecified; S37.012A Minor contusion of left kidney, initial encounter; I48.20 Chronic atrial fibrillation, unspecified; D63.8 Anemia in other chronic diseases classified elsewhere; E11.42 Type 2 diabetes mellitus with diabetic polyneuropathy; N18.3 Chronic kidney disease, stage 3 (moderate); I13.10 Hypertensive heart and chronic kidney disease without heart failure, with stage 1 through stage 4 chronic kidney disease, or unspecified chronic kidney disease; E11.22 Type 2 diabetes mellitus with diabetic chronic kidney disease; E11.51 Type 2 diabetes mellitus with diabetic peripheral angiopathy without gangrene; E11.65 Type 2 diabetes mellitus with hyperglycemia; E87.5 Hyperkalemia; G89.4 Chronic pain syndrome; I48.0 Paroxysmal atrial fibrillation; E78.5 Hyperlipidemia, unspecified; J44.9 Chronic obstructive pulmonary disease, unspecified; I25.10 Atherosclerotic heart disease of native coronary artery without angina pectoris; N32.81 Overactive bladder; I25.5 Ischemic cardiomyopathy; G47.33 Obstructive sleep apnea (adult) (pediatric); K44.9 Diaphragmatic hernia without obstruction or gangrene; M51.36 Other intervertebral disc degeneration, lumbar region; R40.2364 Coma scale, best motor response, obeys commands, 24 hours or more after hospital admission; R40.2144 Coma scale, eyes open, spontaneous, 24 hours or more after hospital admission; R40.2244 Coma scale, best verbal response, confused conversation, 24 hours or more after hospital admission; B37.2 Candidiasis of skin and nail; R29.6 Repeated falls; M48.061 Spinal stenosis, lumbar region without neurogenic claudication; R32 Unspecified urinary incontinence; G25.81 Restless legs syndrome; F41.9 Anxiety disorder, unspecified; I25.2 Old myocardial infarction; E66.01 Morbid (severe) obesity due to excess calories; Z68.39 Body mass index [BMI] 39.0-39.9, adult; Z79.899 Other long term (current) drug therapy; Z79.82 Long term (current) use of aspirin; Z79.4 Long term (current) use of insulin; Z96.653 Presence of artificial knee joint, bilateral; Z91.14 Patient's other noncompliance with medication regimen; Z98.84 Bariatric surgery status; Z91.81 History of falling; Z87.440 Personal history of urinary (tract) infections; Z92.21 Personal history of antineoplastic chemotherapy; Z85.05 Personal history of malignant neoplasm of liver; Z95.5 Presence of coronary angioplasty implant and graft; Z86.73 Personal history of transient ischemic attack (TIA), and cerebral infarction without residual deficits; Z86.14 Personal history of Methicillin resistant Staphylococcus aureus infection; Z90.49 Acquired absence of other specified parts of digestive tract; Z90.710 Acquired absence of both cervix and uterus; Z98.890 Other specified postprocedural states; Z88.8 Allergy status to other drugs, medicaments and biological substances; Z82.49 Family history of ischemic heart disease and other diseases of the circulatory system
CPT/HCPCS: 36415; 70450; 71046; 72125; 74177; 80048; 80051; 80053; 81001; 82009; 82550; 83036; 83605; 83690; 83735; 84443; 85025; 85027; 87040; 87502; 93005; 96361; 96374; 96375; 99285

== ENCOUNTER 2020-02-29 15:08 | Emergency (ER) | payer MEDICARE, OTHER ==
[2020-02-29 15:24] VITALS: BP 91/62; PULSE 62; RESP 20; TEMP 98
--- NOTE | 2020-02-29 15:38 | ED ---
General Adult HPI - General Chief complaint: Fall Stated complaint: possible Left foot broken Time Seen by Provider: 02/29/20 15:20 Source: patient, RN notes reviewed, old records reviewed Mode of arrival: wheelchair Limitations: no limitations - History of Present Illness Initial comments: This is a 70-year-old female who presents to the emergency department after having fallen over the weekend patient is normally bedbound but today the daughter noticed the ankle is swollen and foot was Ecchymotic and swollen and the patient was unable and weight on it so she decided to bring patient to the emergency department. Patient denies hitting her head she denies any neck pain. Patient denies any upper extremity pain patient denies any back pain chest pain or abdominal pain. - Related Data Home Medications Medication Instructions Recorded Confirmed Pantoprazole Sodium 40 mg PO DAILY 08/10/14 12/09/19 Solifenacin Succinate [Vesicare] 10 mg PO HS 08/10/14 12/09/19 Ondansetron [Zofran] 4 mg PO Q8H PRN 03/26/16 12/09/19 Gabapentin [Neurontin] 600 mg PO HS 04/02/16 12/09/19 Nystatin [Nystop] 1 applic TOPICAL DAILY PRN 02/14/17 12/09/19 Bisacodyl [Dulcolax] 5 mg PO QAM 05/18/17 12/09/19 Venlafaxine HCl [Effexor] 75 mg PO QAM 05/18/17 12/09/19 Venlafaxine HCl [Effexor] 150 mg PO HS 05/18/17 12/09/19 Aspirin [Adult Low Dose Aspirin EC] 81 mg PO DAILY 09/14/18 12/09/19 rOPINIRole HCL [Requip] 0.25 mg PO HS 06/06/19 12/09/19 Metoprolol Tartrate 25 mg PO BID 10/07/19 12/09/19 Gabapentin [Neurontin] 300 mg PO QAM 10/28/19 12/09/19 Meclizine HCl 25 mg PO DAILY PRN 10/28/19 12/09/19 INSULIN ASPART (NovoLOG) [NovoLOG 5 unit SQ AC-TID 12/09/19 12/09/19 (formulary)] INSULIN ASPART (NovoLOG) [NovoLOG See Protocol SQ ACHS 12/09/19 12/09/19 (formulary)] Insulin Detemir [Levemir Flextouch] 14 units SQ AC-BRKFST 12/09/19 12/09/19 Insulin Detemir [Levemir Flextouch] 16 units SQ HS 12/09/19 12/09/19 Previous Rx's Medication Instructions Recorded Atorvastatin [Lipitor] 40 mg PO HS #30 tablet 04/06/14 amLODIPine [Norvasc] 5 mg PO DAILY #30 tab 04/06/14 fentaNYL 50MCG/HR PATCH [Duragesic 1 patch TRANSDERM Q72H patch 11/02/19 50MCG/HR] Cefuroxime [Ceftin] 250 mg PO BID #14 tab 12/12/19 Allergies Allergy/AdvReac Type Severity Reaction Status Date / Time metformin HCl Allergy "kidneys Verified 02/29/20 15:24 [From Glucophage] shut down" Review of Systems ROS Statement: Those systems with pertinent positive or pertinent negative responses have been documented in the HPI. ROS Other: All systems not noted in ROS Statement are negative. Past Medical History Past Medical History: Atrial Fibrillation, Cancer, CVA/TIA, Diabetes Mellitus, Hyperlipidemia, Hypertension Additional Past Medical History / Comment(s): Hepatocellular carcinoma (in remission), had one dose of chemo 2015, TIA X4, hiatal hernia, spinal stenosis, degenerative disc disease involving L3 and L4, diabetic peripheral neuropathy, hyperactive bladder, history of septic left knee joint post arthroplasty. restless leg syndrome. History of Any Multi-Drug Resistant Organisms: MRSA Date of last positivie culture/infection: 2010 MDRO Source:: Left knee Past Surgical History: Adenoidectomy, Bariatric Surgery, Cholecystectomy, Heart Catheterization With Stent, Hernia Repair, Hysterectomy, Joint Replacement, Orthopedic Surgery, Tonsillectomy Additional Past Surgical History / Comment(s): Lap band placed in 2004, prolapsed & removed in 2006, neuro stimulator in back, one stent to LAD, left knee arthroscopic surgery, right total knee arthroplasty, left total knee arthroplasty 10/01/2011, repair of quadriceps tendon 08/21/2011, left knee patellar tendon repair 09/24/2011, removal of the hardware of the left total knee arthroplasty with implantation of the antibiotic spacer October 08 2011, total left knee hardware replacement in May 2012,. trigger finger, left hand in 2003 with subsequent reversal in 2005. Uses a walker or wheelchair Past Anesthesia/Blood Transfusion Reactions: No Reported Reaction Date of Last Stent Placement:: 05/17/2010 Past Psychological History: Anxiety, Depression Smoking Status: Never smoker Past Alcohol Use History: None Reported Past Drug Use History: None Reported - Past Family History Mother Family Medical History: Congestive Heart Failure (CHF) Father Family Medical History: Myocardial Infarction ([place]) Additional Family Medical History / Comment(s): Father at the age of 59 yrs from [place] General Exam - General Exam Comments Initial Comments: GENERAL Patient is well-developed and well-nourished. Patient is in mild distress. EYES Patient's pupils are equal and round. Extraocular motion is intact SKIN Unremarkable NEURO The patient is alert and oriented 3 PYSCH Patient has normal interpersonal interactions. MUSCULOSKELETAL Patient's foot is tender in the lateral malleolus as well as along the fourth and fifth metatarsal. There is swollen and mildly ecchymotic Limitations: no limitations Course Vital Signs 02/29/20 15:20 Temperature 98.0 F Pulse Rate 62 Respiratory 20 Rate Blood Pressure 91/62 O2 Sat by Pulse 99 Oximetry Medical Decision Making - Medical Decision Making X-ray of the foot shows a fracture of the fifth proximal phalanx at the base. No fractures of the ankle were seen. Daughter states the patient only needs to stand to transfer over to a portable. Patient will get an air splint and an orthostatic shoe Disposition Clinical Impression: Phalanx fracture, foot, Sprained ankle Disposition: HOME SELF-CARE Condition: Good Instructions (If sedation given, give patient instructions): Fall Prevention (ED) Is patient prescribed a controlled substance at d/c from ED?: No Referrals: Nonstaff,Physician [REFERRING] - 1-2 days Time of Disposition: 16:45
--- NOTE | 2020-02-29 16:06 | XR ---
EXAMINATION TYPE: XR foot complete LT, XR ankle complete LT DATE OF EXAM: 02/29/2020 CLINICAL HISTORY: Left ankle and foot pain after injury TECHNIQUE: Frontal, lateral and oblique images of the left ankle and foot are obtained. COMPARISON: None. FINDINGS: Nondisplaced acute chip fracture of the medial base of the fifth proximal phalanx on the le ft foot. There is no comminution seen but intra-articular extension is present. Degenerative changes of the distal interphalangeal joints. Flexion deformities slightly limited evaluation of the distal i nterphalangeal joints and proximal interphalangeal joints. There is mild diffuse osseous demineraliza tion. Extensive atherosclerosis is seen of the small vasculature. Small Achilles and plantar heel spu rs are noted. Old well-corticated fracture of the lateral base of the first metatarsal. IMPRESSION: Acute nondisplaced chip fracture of the medial aspect of the base of the left proximal fi fth phalanx with intra-articular extension into the fifth metatarsal phalangeal joint.
== END 2020-02-29 17:10 | disposition home or self-care (01) ==
LOC: SUPCPDRO 15:08 → EC 15:08
DX: S92.525A Nondisplaced fracture of middle phalanx of left lesser toe(s), initial encounter for closed fracture (principal); I48.91 Unspecified atrial fibrillation; I10 Essential (primary) hypertension; E11.40 Type 2 diabetes mellitus with diabetic neuropathy, unspecified; F41.9 Anxiety disorder, unspecified; F32.9 Major depressive disorder, single episode, unspecified; Z79.899 Other long term (current) drug therapy; Z79.82 Long term (current) use of aspirin; Z79.4 Long term (current) use of insulin; Z88.8 Allergy status to other drugs, medicaments and biological substances; Z96.653 Presence of artificial knee joint, bilateral; Z98.84 Bariatric surgery status; Z74.01 Bed confinement status; W19.XXXA Unspecified fall, initial encounter
CPT/HCPCS: 99283

== ENCOUNTER 2020-05-08 19:19 | Inpatient (IN) | payer MEDICARE, OTHER ==
[2020-05-08] MEDS ORDERED: HYDROmorphone 0.5 MG/0.5 ML SYRINGE IM STA (20:20)
--- NOTE | 2020-05-08 20:33 | CT ---
EXAMINATION TYPE: CT brain wo con DATE OF EXAM: 05/08/2020 COMPARISON: 12/08/2019 HISTORY: Fall CT DLP: 1129.4 mGycm Automated exposure control for dose reduction was used. There is cerebral cortical atrophy. There is no mass effect nor midline shift. There is no sign of in tracranial hemorrhage. The calvarium is intact. There is patchy hypodensity in the periventricular wh ite matter. IMPRESSION: There is some cerebral atrophy and chronic small vessel ischemia unchanged. No acute intracranial abn ormality.
--- NOTE | 2020-05-08 20:53 | XR ---
EXAMINATION TYPE: XR knee 4V LT DATE OF EXAM: 05/08/2020 COMPARISON: 05/25/2012 HISTORY: Knee pain TECHNIQUE: 5 views FINDINGS: There is left knee prosthesis. Components appear in anatomic position. IMPRESSION: No complicating process seen. No fracture. No change.
--- NOTE | 2020-05-08 20:54 | XR ---
EXAMINATION TYPE: XR Hip LT and AP Pelvis DATE OF EXAM: 05/08/2020 COMPARISON: 06/06/2019 HISTORY: Pain TECHNIQUE: 3 views FINDINGS: There is acute intertrochanteric fracture left femur without significant displacement. Pelv ic ring is intact. Sacroiliac joints appear normal. IMPRESSION: Acute intertrochanteric fracture left femur.
--- NOTE | 2020-05-08 20:55 | XR ---
EXAMINATION TYPE: XR foot complete LT DATE OF EXAM: 05/08/2020 COMPARISON: NONE HISTORY: Foot pain TECHNIQUE: 3 views FINDINGS: Metatarsals are intact. There is some vascular calcification. I see no fracture nor disloca tion. There is multiple hammertoe deformity. IMPRESSION: No acute abnormality of the left foot. No fracture.
--- NOTE | 2020-05-08 21:46 | XR ---
EXAMINATION TYPE: XR chest 2V DATE OF EXAM: 05/08/2020 COMPARISON: 12/08/2019 HISTORY: Preop. TECHNIQUE: FINDINGS: Heart and mediastinum are normal. Lungs are clear. Diaphragm is normal. Bony thorax appears intact. Exam limited slightly by patient's size. IMPRESSION: No active cardiopulmonary disease. No change.
[2020-05-08 22:27] LABS: Albumin 3.8 g/dL (3.5-5.0); Total Protein 7.9 g/dL (6.3-8.2)
[2020-05-08] MEDS ORDERED: NALOXONE 0.4 MG/ML 1 ML VIAL IV PRN (22:32)
--- NOTE | 2020-05-08 22:34 | ED ---
General Adult HPI - General Source: EMS, RN notes reviewed, old records reviewed Mode of arrival: EMS Limitations: no limitations <Emile Aguilar - Last Filed: 05/08/20 22:31> <Brendon Jane - Last Filed: 05/08/20 22:46> - General Chief complaint: Fall Stated complaint: Fall,Hip Injury Time Seen by Provider: 05/08/20 19:44 - History of Present Illness Initial comments: 70-year-old female patient with past history significant for atrial fibrillation, type 2 diabetes hypertension hyperlipidemia presents the chief complaint of fall mechanical. Patient reports that she got return to quickly she'll left side does have made o'clock this morning. Patient does report that she did hit her head. Denies a loss of consciousness. Chief complaint is left hip pain. Also reports she has some pain in her knee and her foot however the hip is her chief complaint. She denies any other complaints. Systemic: Pt denies fatigue, fever/chills, rash. Pt denies weakness, night sweats, weight loss. Neuro: Pt denies headache, visual disturbances, syncope or pre-syncope. HEENT: Pt denies ocular discharge or irritation, otalgia, rhinorrhea, pharyngitis or notable lymphadenopathy. Cardiopulmonary: Pt denies chest pain, SOB, heart palpitations, dyspnea on exertion. Abdominal/GI: Pt denies abdominal pain, n/v/d. : Pt denies dysuria, burning w/ urination, frequency/urgency. Denies new onset urinary or bowel incontinence. MSK: Pt denies myalgia, loss of strength or function in extremities. Neuro: Pt denies new onset weakness, paresthesias. (Emile Aguilar) - Related Data Home Medications Medication Instructions Recorded Confirmed Pantoprazole Sodium 40 mg PO DAILY 08/10/14 05/08/20 Solifenacin Succinate [Vesicare] 10 mg PO HS 08/10/14 05/08/20 Ondansetron [Zofran] 4 mg PO Q8H PRN 03/26/16 05/08/20 Gabapentin [Neurontin] 600 mg PO HS 04/02/16 05/08/20 Nystatin [Nystop] 1 applic TOPICAL DAILY PRN 02/14/17 05/08/20 Bisacodyl [Dulcolax] 5 mg PO QAM 05/18/17 05/08/20 Venlafaxine HCl [Effexor] 75 mg PO QAM 05/18/17 05/08/20 Venlafaxine HCl [Effexor] 150 mg PO HS 05/18/17 05/08/20 Aspirin [Adult Low Dose Aspirin EC] 81 mg PO DAILY 09/14/18 05/08/20 rOPINIRole HCL [Requip] 0.25 mg PO HS 06/06/19 05/08/20 Metoprolol Tartrate 25 mg PO BID 10/07/19 05/08/20 Gabapentin [Neurontin] 300 mg PO QAM 10/28/19 05/08/20 INSULIN ASPART (NovoLOG) [NovoLOG 5 unit SQ AC-TID 12/09/19 05/08/20 (formulary)] INSULIN ASPART (NovoLOG) [NovoLOG See Protocol SQ ACHS 12/09/19 05/08/20 (formulary)] ALPRAZolam [Xanax] 0.5 mg PO BID PRN 05/08/20 05/08/20 Ferrous Gluconate 324 mg PO DAILY 05/08/20 05/08/20 Insulin Glargine,Hum.rec.anlog 16 unit SQ DAILY 05/08/20 05/08/20 [Lantus Solostar] Insulin Glargine,Hum.rec.anlog 20 unit SQ HS 05/08/20 05/08/20 [Lantus Solostar] Previous Rx's Medication Instructions Recorded Atorvastatin [Lipitor] 40 mg PO HS #30 tablet 04/06/14 amLODIPine [Norvasc] 5 mg PO DAILY #30 tab 04/06/14 fentaNYL 50MCG/HR PATCH [Duragesic 1 patch TRANSDERM Q72H patch 11/02/19 50MCG/HR] Allergies Allergy/AdvReac Type Severity Reaction Status Date / Time metformin HCl Allergy "kidneys Verified 05/08/20 21:58 [From Glucophage] shut down" Review of Systems ROS Other: All systems not noted in ROS Statement are negative. <Emile Aguilar - Last Filed: 05/08/20 22:31> ROS Other: All systems not noted in ROS Statement are negative. <Brendon Jane - Last Filed: 05/08/20 22:46> ROS Statement: Those systems with pertinent positive or pertinent negative responses have been documented in the HPI. Past Medical History Past Medical History: Atrial Fibrillation, Cancer, CVA/TIA, Diabetes Mellitus, Hyperlipidemia, Hypertension Additional Past Medical History / Comment(s): Hepatocellular carcinoma (in remission), had one dose of chemo 2015, TIA X4, hiatal hernia, spinal stenosis, degenerative disc disease involving L3 and L4, diabetic peripheral neuropathy, hyperactive bladder, history of septic left knee joint post arthroplasty. restless leg syndrome. History of Any Multi-Drug Resistant Organisms: MRSA Date of last positivie culture/infection: 2010 MDRO Source:: Left knee Past Surgical History: Adenoidectomy, Bariatric Surgery, Cholecystectomy, Heart Catheterization With Stent, Hernia Repair, Hysterectomy, Joint Replacement, Orthopedic Surgery, Tonsillectomy Additional Past Surgical History / Comment(s): Lap band placed in 2003, prolapsed & removed in 2005, neuro stimulator in back, one stent to LAD, left knee arthroscopic surgery, right total knee arthroplasty, left total knee arthroplasty 10/01/2011, repair of quadriceps tendon 08/21/2011, left knee patellar tendon repair 09/24/2011, removal of the hardware of the left total knee arthroplasty with implantation of the antibiotic spacer October 08 2011, total left knee hardware replacement in May 2012,. trigger finger, left hand in 2003 with subsequent reversal in 2005. Uses a walker or wheelchair Past Anesthesia/Blood Transfusion Reactions: No Reported Reaction Date of Last Stent Placement:: 05/17/2010 Past Psychological History: Anxiety, Depression Smoking Status: Never smoker Past Alcohol Use History: None Reported Past Drug Use History: None Reported - Past Family History Mother Family Medical History: Congestive Heart Failure (CHF) Father Family Medical History: Myocardial Infarction ([place]) Additional Family Medical History / Comment(s): Father at the age of 59 yrs from [place] <Emile Aguilar - Last Filed: 05/08/20 22:31> General Exam Limitations: no limitations <Emile Aguilar - Last Filed: 05/08/20 22:31> - General Exam Comments Initial Comments: Constitutional: NAD, AOX3, Pt has pleasant affect. HEENT: NC/AT, trachea midline, neck supple, no lymphadenopathy. Posterior pharynx non erythematous, without exudates. External ears appear normal, without discharge. Mucous membranes moist. Eyes PERRLA, EOM intact. There is no scleral icterus. No pallor noted. Cardiopulmonary: RRR, no murmurs, rubs or gallops, no JVD noted. Lungs CTAB in anterior and posterior parsons. No peripheral edema. Abdominal exam: Abdomen soft and non-distended. Abdomen non-tender to palpation in all 4 quadrants. Bowel sounds active in LLQ. No hepatosplenomegaly. No ecchymosis Neuro: CN II-XII intact. No nuchal rigidity. No raccon eyes, no mcfarland sign, no hemotympanum. No cervical spinal tenderness. MSK: Left proximal hip is mildly tender to palpation. Mild tenderness to anterior knee. Neurovascularly intact. Posterior tibialis pulse +2 bilaterally. No external skin changes. (Emile Aguilar) Course <Brendon Jane - Last Filed: 05/08/20 22:46> Vital Signs 05/08/20 05/08/20 19:25 22:24 Temperature 96.9 F L 97.3 F L Pulse Rate 76 60 Respiratory 18 18 Rate Blood Pressure 135/76 141/81 O2 Sat by Pulse 94 L 94 L Oximetry - Reevaluation(s) Reevaluation #1: 05/08/20 22:46 PA supervision: I personally evaluate this patient she did suffer a fall on did come in for evaluation. She complains of left hip pain. She denies any head neck or back pain. No loss of function to her upper or lower extremities of she has does have pain with trying to move her left leg. X-rays were consistent with a intertrochanteric fracture left hip. The case had been discussed with Dr. Denise. Patient will be admitted with medical consultation. I do agree with the assessment and plan (Brendon Jane) Medical Decision Making - Lab Data Result diagrams: 05/08/20 22:09 - EKG Data -: EKG Interpreted by Me (and Dr. Jane ) <Emile Aguilar - Last Filed: 05/08/20 22:31> - Lab Data Result diagrams: 05/08/20 22:09 <Brendon Jane - Last Filed: 05/08/20 22:46> - Medical Decision Making 70-year-old female patient with past history significant for atrial fibrillation, type 2 diabetes hypertension hyperlipidemia presents the chief complaint of fall mechanical. Patient reports that she got return to quickly she'll left side does have made o'clock this morning. Patient does report that she did hit her head. Denies a loss of consciousness. Chief complaint is left hip pain. Also reports she has some pain in her knee and her foot however the hip is her chief complaint. She denies any other complaints. Pt VSS, afebrile. Phyical exam displayed: Left proximal hip is mildly tender to palpation. Mild tenderness to anterior knee. Neurovascularly intact. Posterior tibialis pulse +2 bilaterally. Plain films displayed acute intertrochanteric fracture left femur. CT brain is negative. Patient admitted to Dr. Denise with medicine consult. Case discussed with Dr. Jane. (Emile Aguilar) - Lab Data Lab Results 05/08/20 Range/Units 22:09 Sodium 134 L (137-145) mmol/L Potassium (3.5-5.1) mmol/L Chloride 101 (98-107) mmol/L Carbon Dioxide 26 (22-30) mmol/L Anion Gap 7 mmol/L BUN 26 H (7-17) mg/dL Creatinine 0.96 (0.52-1.04) mg/dL Est GFR (CKD-EPI)AfAm 68 (>60 ml/min/1.73 sqM) Est GFR (CKD-EPI)NonAf 59 (>60 ml/min/1.73 sqM) Glucose 220 H (74-99) mg/dL Calcium 9.0 (8.4-10.2) mg/dL Total Bilirubin 1.0 (0.2-1.3) mg/dL AST 64 H (14-36) U/L ALT 45 H (4-34) U/L Alkaline Phosphatase 174 H (38-126) U/L Total Protein 7.9 (6.3-8.2) g/dL Albumin 3.8 (3.5-5.0) g/dL - EKG Data EKG Comments: Ventricular rate 70,. And phone 84, QRS 82, QT/QTc 422/455. Normal sinus rhythm with sinus arryhtmia. Normal EKG. No concern for acute ischemia. (Emile Aguilar) Disposition Is patient prescribed a controlled substance at d/c from ED?: No <Emile Aguilar - Last Filed: 05/08/20 22:31> <Brendon Jane - Last Filed: 05/08/20 22:46> Clinical Impression: Femur fracture, left Disposition: ADMITTED IP TO THIS HOSP Condition: Serious Referrals: Amanuel Wilkinson MD [Primary Care Provider] - 1-2 days
[2020-05-08] MEDS ORDERED: MELATONIN 5 MG TABLET PO PRN (22:51)
[2020-05-08] MEDS: HYDROmorphone 0.5 MG/0.5 ML SYRINGE IVP PRN (23:10)
[2020-05-08 23:46] LABS: INR 0.9 (<1.2); Partial Thromboplastin Time 22.7 sec (22.0-30.0); Prothrombin Time 9.4 sec (9.0-12.0)
[2020-05-08 23:56] LABS: Basophils # (A) 0.1 k/uL (0-0.2); Basophils % (A) 1 %; Eosinophils # (A) 0.7 k/uL (0-0.7); Eosinophils % (A) 4 %; HCT 41.2 % (34.0-46.0); HGB 12.9 gm/dL (11.4-16.0); Hypochromasia Slight; Lymphocytes # (A) 3.3 k/uL (1.0-4.8); Lymphocytes % (A) 18 %; MCH 26.9 pg (25.0-35.0); MCHC 31.3 g/dL (31.0-37.0); MCV 86.1 fL (80.0-100.0); Mean Platelet Volume 10.4; Monocytes # (A) 0.4 k/uL (0-1.0); Monocytes % (A) 3 %; Neutrophils # (A) 13.2 k/uL (1.3-7.7); Neutrophils % (A) 74 %; Platelet Count 253 k/uL (150-450); RBC 4.79 m/uL (3.80-5.40); RDW 15.6 % (11.5-15.5); WBC 17.9 k/uL (3.8-10.6)
[2020-05-09] MEDS: HYDROmorphone 0.5 MG/0.5 ML SYRINGE IVP PRN ×5 (02:12→20:33)
[2020-05-09] MEDS ORDERED: NYSTATIN 100,000 UNIT/GM POWD 15 GM TOPICAL PRN (09:52)
[2020-05-09] MEDS ORDERED: ONDANSETRON 4 MG TAB PO PRN (09:52)
[2020-05-09 10:00] LABS: Glucose,Whole Blood 203 mg/dL (75-99)
--- NOTE | 2020-05-09 10:46 | P.HPOR ---
History of Present Illness H&P Date: 05/09/20 This patient is a 70-year-old female with a past medical history of coronary artery disease status-post PCI and stent placement, hypertension, chronic kidney disease, diabetes mellitus type 2, and paroxysmal atrial fibrillation the presented to [facility] emergency department yesterday via EMS with complaints of left hip pain following a fall at home. Patient's daughter is bedside during exam. Patient states she fell yesterday in her room. She fell directly onto the left hip. She did hit her head. She experienced increasing pain in the left hip throughout the day, therefore EMS was called by the patient's family. X-rays of the left hip in the emergency department revealed intertrochanteric left hip fracture. X-rays of the left knee, left foot did not reveal any acute fractures. Patient does have a history of bilateral TKAs by Dr. Rowland about 810 years ago. Patient was admitted under the care of Dr. Denise with a consult placed to internal medicine for surgical clearance and medical management. At the time of my exam, the patient denies pain or injury besides her left hip. Per the patient's daughter, the patient has been falling a lot recently. The patient denies headache, visual disturbances. She denies numbness or tingling of the left lower extremity. Patient does feel her left hip pain is currently well controlled. She does use a fentanyl patch at home for chronic pain. She denies any additional complaints at this time. Vital signs stable. Past Medical History Past Medical History: Atrial Fibrillation, Cancer, CVA/TIA, Diabetes Mellitus, Hyperlipidemia, Hypertension Additional Past Medical History / Comment(s): Hepatocellular carcinoma (in remission), had one dose of chemo 2014, TIA X4, hiatal hernia, spinal stenosis, degenerative disc disease involving L3 and L4, diabetic peripheral neuropathy, hyperactive bladder, history of septic left knee joint post arthroplasty. restle ss leg syndrome. History of Any Multi-Drug Resistant Organisms: MRSA Date of last positivie culture/infection: 2010 MDRO Source:: Left knee Past Surgical History: Adenoidectomy, Bariatric Surgery, Cholecystectomy, Heart Catheterization With Stent, Hernia Repair, Hysterectomy, Joint Replacement, Orth opedic Surgery, Tonsillectomy Additional Past Surgical History / Comment(s): Lap band placed in 2003, prolapsed & removed in 2005, neuro stimulator in back, one stent to LAD, left knee arthroscopic surgery, right total knee arthroplasty, left total knee arthroplasty 10/01/2011, repair of quadriceps tendon 08/21/2011, left knee patellar tendon repair 09/24/2011, removal of the hardware of the left total knee arthroplasty with implantation of the antibiotic spacer October 08 2011, total left knee hardware replacement in May 2012,. trigger finger, left hand in 2003 with subsequent reversal in 2005. Uses a walker or wheelchair Past Anesthesia/Blood Transfusion Reactions: No Reported Reaction Date of Last Stent Placement:: 05/17/2010 Past Psychological History: Anxiety, Depression Additional Psychological History / Comment(s): Pt resides with her Sonam cruz and her son in law. She ambulates rarely with a walker, mostly is in a wheelchair. Pt feeds herself. Sonam Cruz is pt's DPOA and caregiver. No home care used. Smoking Status: Never smoker Past Alcohol Use History: None Reported Past Drug Use History: None Reported - Past Family History Mother Family Medical History: Congestive Heart Failure (CHF) Father Family Medical History: Myocardial Infarction ([place]) Additional Family Medical History / Comment(s): Father at the age of 59 yrs from [place] Medications and Allergies Home Medications Medication Instructions Recorded Confirmed Type Atorvastatin [Lipitor] 40 mg PO HS #30 tablet 04/06/14 05/08/20 Rx amLODIPine [Norvasc] 5 mg PO DAILY #30 tab 04/06/14 05/08/20 Rx Pantoprazole Sodium 40 mg PO DAILY 08/10/14 05/08/20 History Solifenacin Succinate [Vesicare] 10 mg PO HS 08/10/14 05/08/20 History Ondansetron [Zofran] 4 mg PO Q8H PRN 03/26/16 05/08/20 History Gabapentin [Neurontin] 600 mg PO HS 04/02/16 05/08/20 History Nystatin [Nystop] 1 applic TOPICAL DAILY PRN 02/14/17 05/08/20 History Bisacodyl [Dulcolax] 5 mg PO QAM 05/18/17 05/08/20 History Venlafaxine HCl [Effexor] 75 mg PO QAM 05/18/17 05/08/20 History Venlafaxine HCl [Effexor] 150 mg PO HS 05/18/17 05/08/20 History Aspirin [Adult Low Dose Aspirin EC] 81 mg PO DAILY 09/14/18 05/08/20 History rOPINIRole HCL [Requip] 0.25 mg PO HS 06/06/19 05/08/20 History Metoprolol Tartrate 25 mg PO BID 10/07/19 05/08/20 History Gabapentin [Neurontin] 300 mg PO QAM 10/28/19 05/08/20 History fentaNYL 50MCG/HR PATCH [Duragesic 1 patch TRANSDERM Q72H patch 11/02/19 05/08/20 Rx 50MCG/HR] INSULIN ASPART (NovoLOG) [NovoLOG 5 unit SQ AC-TID 12/09/19 05/08/20 History (formulary)] INSULIN ASPART (NovoLOG) [NovoLOG See Protocol SQ ACHS 12/09/19 05/08/20 History (formulary)] ALPRAZolam [Xanax] 0.5 mg PO BID PRN 05/08/20 05/08/20 History Ferrous Gluconate 324 mg PO DAILY 05/08/20 05/08/20 History Insulin Glargine,Hum.rec.anlog 16 unit SQ DAILY 05/08/20 05/08/20 History [Lantus Solostar] Insulin Glargine,Hum.rec.anlog 20 unit SQ HS 05/08/20 05/08/20 History [Lantus Solostar] Allergies Allergy/AdvReac Type Severity Reaction Status Date / Time metformin HCl Allergy "kidneys Verified 05/08/20 21:58 [From Glucophage] shut down" Physical Examination On examination, the patient is lying in bed in no apparent distress. She is alert and oriented 3. Her daughter is bedside. Her head appears normocephalic and atraumatic. Her breathing appears nonlabored. On inspection of her bilateral upper extremities, there are no obvious deformities or signs of trauma. On inspection of her right lower extremity, there are no obvious deformities or signs of trauma. There is a scar over the anterior knee consistent with a prior TKA. No pain with passive range of motion of the right hip or knee. On inspection of the left lower extremity, there is a scar over the anterior knee consistent with a prior TKA. Range of motion of the left hip and knee is not tested at this time. There is moderate pain to palpation of the left hip. Skin is intact with no open wounds or lacerations. No ecchymosis or erythema of the skin. Patient has good strength and range of motion of the left ankle. Motor and sensory function are intact of the left lower extremity. Dorsalis pedis pulse +2. Left lower extremities warm and well perfused with brisk capillary refill distally. Results Left hip and pelvis x-ray 05/08/20: Acute intertrochanteric hip fracture Left knee x-ray 05/08/20: Prior TKA with components in good position. Left foot x-ray 05/08/20: No acute fractures. - Labs Labs: Abnormal Lab Results - Last 24 Hours (Table) 05/08/20 05/08/20 05/09/20 Range/Units 22:09 22:13 09:35 WBC 17.9 H (3.8-10.6) k/uL RDW 15.6 H (11.5-15.5) % Neutrophils # 13.2 H (1.3-7.7) k/uL Sodium 134 L (137-145) mmol/L BUN 26 H (7-17) mg/dL Glucose 220 H (74-99) mg/dL POC Glucose (mg/dL) 203 H (75-99) mg/dL AST 64 H (14-36) U/L ALT 45 H (4-34) U/L Alkaline Phosphatase 174 H (38-126) U/L H & H 05/08/20 Range/Units 22:13 Hgb 12.9 (11.4-16.0) gm/dL Hct 41.2 (34.0-46.0) % Coagulation 05/08/20 Range/Units 22:09 INR 0.9 (<1.2) Result Diagrams: 05/08/20 22:13 05/08/20 22:09 Assessment and Plan Assessment: Left intertrochanteric hip fracture Plan: - The clinical and imaging findings are discussed with the patient. The patient was discussed with Dr. Denise. We will plan for a closed reduction left hip and insertion of short IT nail this afternoon, pending medical clearance and consent. Verbal consent was obtained from the patient bedside. - Strict nonweightbearing on the left lower extremity. Bed rest. - Continue pain management as needed. - NPO diet.
[2020-05-09] MEDS: GABAPENTIN 300 MG CAP PO SCH ×2 (12:23→21:48)
[2020-05-09] MEDS: PANTOPRAZOLE 40 MG TABLET PO SCH (12:23)
[2020-05-09] MEDS: METOPROLOL TARTRATE 25 MG TAB PO SCH ×2 (12:23→21:47)
[2020-05-09] MEDS: amLODIPine 5 MG TAB PO SCH (12:23)
[2020-05-09] MEDS: VENLAFAXINE HCL 75 MG TAB PO SCH ×2 (12:26→23:11)
[2020-05-09] MEDS: INSULIN DETEMIR (LEVEMIR) 100 UNIT/ML SYR SQ SCH ×2 (12:35→21:46)
[2020-05-09] MEDS: INSULIN ASPART (NovoLOG) 100 UNIT/ML VIAL SQ SCH ×3 (12:36→23:08)
[2020-05-09] MEDS ORDERED: ONDANSETRON 4 MG/2 ML VIAL ONE (14:19)
[2020-05-09] MEDS ORDERED: LACTATED RINGERS 1,000 ML IV ONE ×2 (14:24→16:24)
[2020-05-09 14:31] LABS: Glucose,Whole Blood 166 mg/dL (75-99)
[2020-05-09] MEDS ORDERED: PROPOFOL 10 MG/ML 20 ML VIAL IV ONE (14:41)
[2020-05-09] MEDS ORDERED: SUCCINYLCHOLINE CHLORIDE 100 MG/5 ML SYR IV ONE (14:41)
[2020-05-09] MEDS ORDERED: fentaNYL (PF) 50 MCG/ML 2 ML AMP ONE (14:41)
[2020-05-09] MEDS ORDERED: MIDAZOLAM 2 MG/2 ML VIAL ONE (14:41)
[2020-05-09] MEDS ORDERED: LIDOCAINE 1% INJ 10MG/ML (20 ML MDV) ONE (14:41)
[2020-05-09] MEDS ORDERED: ceFAZolin 1,000 MG in SODIUM CHLORIDE 0.9% 1,000 ML IRRIGATION ONE (16:15)
--- NOTE | 2020-05-09 16:36 | P.OP ---
Date of Procedure: 05/09/20 Preoperative Diagnosis: 1. Left basicervical femoral neck fracture 2. Obesity 3. Type 2 diabetes 4. Coronary artery disease Postoperative Diagnosis: Same Procedure(s) Performed: Operative fixation of left basicervical hip fracture with short intramedullary hip screw Anesthesia: MANUEL Surgeon: Dallin Denise Acrobatic Dancer #1: Madelyn Solis Estimated Blood Loss (ml): 100 IV fluids (ml): 1,200 Urine output (ml): 200 Pathology: none sent Condition: stable Disposition: PACU Indications for Procedure: The patient is a very pleasant 70-year-old female with multiple medical problems who sustained a low-energy fall resulting in a left hip fracture. She was seen in the emergency department where x-rays showed a basicervical femoral neck fracture. She was admitted under my care. She was evaluated by internal medicine and was cleared for surgery. I met with the patient and her daughter prior to surgery to discuss treatment options. Due to the fracture being basicervical an extracapsular I recommended operative fixation with a short intramedullary hip screw. The patient has a history of prior revision left total knee replacement with stemmed implant in the femur, but it does not appear to interfere with a short intramedullary hip screw. We discussed potential risks and complications of surgery including but certainly not limited to risks from anesthesia, infection, delayed wound healing, nonunion, malunion, loss of fixation and varus collapse, interoperative fracture, postoperative periprosthetic fracture, DVT, PE, and inability to regain preinjury level of function, and possibly . The patient voices her understanding of this and also understands that other less common complications are possible. Description of Procedure: The patient was identified in preoperative holding and the correct left leg was marked with my initials. I reviewed the consent form with the patient and her daughter. All their questions were answered. The patient was then brought back to the operating room. She was given a general anesthetic and [facility] Once she was under anesthesia she was carefully transferred onto a fracture table. The peroneal post was placed in her groin. The affected left leg was placed into the boot of the fracture table and secured. The right well leg was placed in a leg comer with the hip and knee flexed to 90. The pad was placed and the leg was secured to the leg comer. At this point a timeout was performed identifying the correct patient, operative extremity, and procedure. Using a combination of longitudinal traction, rotation, and adduction and with the assistance of biplanar fluoroscopy a closed reduction was performed. Once the hip was reduced and verified with fluoroscopy the leg was prepped and draped in standard sterile fashion. I began by making a 3 cm incision through the skin, subcutaneous tissue, and fascia down to the greater trochanter. A guidepin was placed centered on the tip of the greater trochanter in the AP view and in line with the femoral canal and the lateral view. The guidepin was brought down to the level of the lesser trochanter. The position of the wire was checked with orthogonal views using a large C-arm. An opening reamer was used. The guidepin and opening reamer removed and a ball-tipped guidewire was placed down into the shaft of the femur. A short intramedullary hip screw was dispensed and hooked up to the targeting arm. I verified that the trochars lined up through the targeting arm with her corresponding slots in the nail. The nail was then gently inserted over the guidewire and was tapped into place using fluoroscopy to assess the depth of the nail. The long ball-tipped guidewire was then removed. The trocar was passed through the targeting arm to the skin on the lateral aspect of the thigh and a stab incision was made to the skin and IT band. The trocar was brought down to the lateral cortex of the femur. A guidepin was placed into the center of the femoral head on the AP and lateral view. It was measured, reamed and a partially threaded lag screw was placed. The set screw was placed proximally. I then placed a static locking screw through the distal nail to a stab incision. The targeting arm was removed and final fluoroscopic images were taken. All wounds were thoroughly irrigated and closed in layers. Sterile dressings consisting of Adaptic, 4 x 4, and median Tegaderms were applied. The patient was carefully removed from the fracture table, transferred from the or table to a gurney, and brought to recovery having tolerated the procedure well. Madelyn Solis [facility] was required as a skilled certified ophthalmic surgical assistant for patient positioning, exposure, retraction, placement of hardware, closure of wounds, and application of dressing. Plan: The patient is going to require 2 doses of postoperative antibiotics. She can toe-touch weightbearing on the left leg. She'll receive DVT prophylaxis with Lovenox. Internal medicine for perioperative medical management. Follow- up in 2 weeks for x-rays of the pelvis and left hip.
--- NOTE | 2020-05-09 16:40 | XR ---
EXAMINATION TYPE: XR Hip Limited LT, FL guidance operating room DATE OF EXAM: 05/09/2020 COMPARISON: NONE HISTORY: 70-year-old female fixation of left hip fracture FINDINGS: Images during interTAN nailing and hip screw fixation. FLUOROSCOPY Fluoroscopy time of 2 minutes 15 seconds was used during left hip fracture fixation. 4 image/s docum ent/s the procedure. IMPRESSION: Intraoperative fluoroscopy as above.
[2020-05-09] MEDS ORDERED: HYDROmorphone 0.5 MG/0.5 ML SYRINGE IVP PRN ×2 (16:47)
[2020-05-09 16:57] LABS: Glucose,Whole Blood 149 mg/dL (75-99)
[2020-05-09] MEDS ORDERED: HYDROmorphone 0.5 MG/0.5 ML SYRINGE IVP ONE (17:24)
[2020-05-09] MEDS: LACTATED RINGERS 1,000 ML IV SCH (19:51)
[2020-05-09 20:15] LABS: Glucose,Whole Blood 222 mg/dL (75-99)
[2020-05-09 21:14] LABS: Basophils # (A) 0.1 k/uL (0-0.2); Basophils % (A) 1 %; Eosinophils # (A) 0.3 k/uL (0-0.7); Eosinophils % (A) 2 %; HCT 38.1 % (34.0-46.0); HGB 11.3 gm/dL (11.4-16.0); Hypochromasia Moderate; Lymphocytes # (A) 2.7 k/uL (1.0-4.8); Lymphocytes % (A) 16 %; MCH 25.9 pg (25.0-35.0); MCHC 29.7 g/dL (31.0-37.0); MCV 87.2 fL (80.0-100.0); Mean Platelet Volume 8.1; Monocytes # (A) 0.7 k/uL (0-1.0); Monocytes % (A) 4 %; Neutrophils # (A) 13.2 k/uL (1.3-7.7); Neutrophils % (A) 77 %; Platelet Count 272 k/uL (150-450); RBC 4.37 m/uL (3.80-5.40); RDW 15.4 % (11.5-15.5); WBC 17.2 k/uL (3.8-10.6)
[2020-05-09] MEDS: ATORVASTATIN 40 MG TAB PO SCH (21:47)
[2020-05-09] MEDS: HYDROcodone/APAP 5-325MG 1 EACH TAB PO PRN (21:48)
[2020-05-09] MEDS: SENNOSIDES-DOCUSATE SODIUM 1 EACH TAB PO SCH (21:48)
--- NOTE | 2020-05-09 22:04 | P.CONS ---
History of Present Illness - Reason for Consult Consult date: 05/09/20 Medical management Requesting physician: Dallin Denise - Chief Complaint Fall - History of Present Illness Consultation: This is a 70-year-old patient of visiting physician Dr. Amanuel Smith. 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 Patient normally uses a wheelchair. Lives with her daughter. Unsteady on her feet knee often gives out. 2 days ago patient took a fall injuring her left hip. Local pain. Found to have fracture of the left femur. Patient had a coronary stent over 20 years ago. Has not really had a follow-up. At baseline no chest pain no shortness of breath. Exercise tolerance is greatly limited because of above. Patient's daughter is at bedside. Review of systems: GEN.: Tired EYES: None HEENT: None NECK: None RESPIRATORY: None CARDIOVASCULAR: None GASTROINTESTINAL: None GENITOURINARY: None MUSCULOSKELETAL: Multiple joint pains LYMPHATICS: None HEMATOLOGICAL: None PSYCHIATRY: None NEUROLOGICAL: None Past medical history to include: Atrial fibrillation, It is mellitus, hypertension, hyperlipidemia, but is little carcinoma in remission after 1 dose of chemotherapy, spinal stenosis, DJD including lumbar spine, diabetic peripheral neuropathy, hyperactive bladder, septic left knee joint, restless leg syndrome, coronary artery disease with stent Social history: This is the daughter rBitta and her son-in-law. Mostly uses a wheelchair. Patient's daughter is to [facility]. No history of smoking or alcohol. Physical examination: VITAL SIGNS: 97.9, 64, 18, 124/65, 94% on room air GENERAL: BMI 32.6, laying in bed awake. EYES: Pupils equal. Conjunctiva normal. HEENT: External appearance of nose and ears normal, oral cavity grossly normal. NECK: JVD not raised; masses not palpable. HEART: First and second heart sounds are normal; no edema. LUNGS: Respiratory rate normal; distant breath sounds. ABDOMEN: Soft, nontender, liver spleen not palpable, no masses palpable. PSYCH: Alert and oriented x3; mood and affect normal. NEUROLOGICAL: Cranial nerves grossly intact; no facial asymmetry, power and sensation grossly intact. MUSCULOSKELETAL: Limited range of motion of left hip, evidence of OA in multiple joints LYMPHATICS: No lymph nodes palpable in the axilla and neck INVESTIGATIONS, reviewed in the clinical context: White count 20.9 hemoglobin 12.9 platelets 253 potassium bun 26 creatinine 0.96% glucose 220 COVID 19-PCR-not detected Computed tomography scan of the brain showing some chronic cerebral atrophy X-ray of the hip showing left femur neck fracture. EKG tracing personally reviewed by me-normal sinus rhythm Chest x-ray film personally reviewed by me-underpenetrated no obvious abnormality Assessment: -Left femur neck fracture secondary to fall -Paroxysmal atrial fibrillation currently in sinus rhythm -Coronary artery disease with a history of stent in the remote past. Patient has no active cardiac symptoms. Exercise tolerance a great limited. Will not benefit fed anymore testing at the present time. -Diabetes mellitus type 2 on oral hypoglycemic -Essential hypertension -Hyperlipidemia -Hiatal hernia -DJD -Diabetic peripheral neuropathy -Chronic gait dysfunction uses a wheelchair at baseline -Restless leg syndrome -Obesity BMI 32.6 -Cardiovascular risk assessment-moderate risk. This was discussed with the patient daughter. They understand the same. No medical contraindications otherwise to proceed for surgery. At this point no further current workup is indicated. Plan: The plan was communicated to the nurse. Home medications resumed. DVT prophylaxis to resume post surgery. Patient is due to go down for surgery this afternoon. Accu-Cheks to be followed. Thank you Dr. Denise Past Medical History Past Medical History: Atrial Fibrillation, Cancer, CVA/TIA, Diabetes Mellitus, Hyperlipidemia, Hypertension Additional Past Medical History / Comment(s): Hepatocellular carcinoma (in remission), had one dose of chemo 2015, TIA X4, hiatal hernia, spinal stenosis, degenerative disc disease involving L3 and L4, diabetic peripheral neuropathy, hyperactive bladder, history of septic left knee joint post arthroplasty. restless leg syndrome. History of Any Multi-Drug Resistant Organisms: MRSA Year Discovered:: 2010 MDRO Source:: Left knee Past Surgical History: Adenoidectomy, Bariatric Surgery, Cholecystectomy, Heart Catheterization With Stent, Hernia Repair, Hysterectomy, Joint Replacement, Orthopedic Surgery, Tonsillectomy Additional Past Surgical History / Comment(s): Lap band placed in 2003, prolapsed & removed in 2005, neuro stimulator in back, one stent to LAD, left knee arthroscopic surgery, right total knee arthroplasty, left total knee arthroplasty 10/01/2011, repair of quadriceps tendon 08/21/2011, left knee patellar tendon repair 09/24/2011, removal of the hardware of the left total knee arthroplasty with implantation of the antibiotic spacer October 08 2011, total left knee hardware replacement in May 2012,. trigger finger, left hand in 2003 with subsequent reversal in 2005. Uses a walker or wheelchair Past Anesthesia/Blood Transfusion Reactions: No Reported Reaction Date of Last Stent Placement:: 05/17/2010 Past Psychological History: Anxiety, Depression Additional Psychological History / Comment(s): Pt resides with her Sonam wilson and her son in law. She ambulates rarely with a walker, mostly is in a wheelchair. Pt feeds herself. Sonam Wilson is pt's DPOA and caregiver. No home care used. Smoking Status: Never smoker Past Alcohol Use History: None Reported Past Drug Use History: None Reported - Past Family History Mother Family Medical History: Congestive Heart Failure (CHF) Father Family Medical History: Myocardial Infarction ([place]) Additional Family Medical History / Comment(s): Father at the age of 59 yrs from [place] Medications and Allergies Home Medications Medication Instructions Recorded Confirmed Type Atorvastatin [Lipitor] 40 mg PO HS #30 tablet 04/06/14 05/08/20 Rx amLODIPine [Norvasc] 5 mg PO DAILY #30 tab 04/06/14 05/08/20 Rx Pantoprazole Sodium 40 mg PO DAILY 08/10/14 05/08/20 History Solifenacin Succinate [Vesicare] 10 mg PO HS 08/10/14 05/08/20 History Ondansetron [Zofran] 4 mg PO Q8H PRN 03/26/16 05/08/20 History Gabapentin [Neurontin] 600 mg PO HS 04/02/16 05/08/20 History Nystatin [Nystop] 1 applic TOPICAL DAILY PRN 02/14/17 05/08/20 History Bisacodyl [Dulcolax] 5 mg PO QAM 05/18/17 05/08/20 History Venlafaxine HCl [Effexor] 75 mg PO QAM 05/18/17 05/08/20 History Venlafaxine HCl [Effexor] 150 mg PO HS 05/18/17 05/08/20 History Aspirin [Adult Low Dose Aspirin EC] 81 mg PO DAILY 09/14/18 05/08/20 History rOPINIRole HCL [Requip] 0.25 mg PO HS 06/06/19 05/08/20 History Metoprolol Tartrate 25 mg PO BID 10/07/19 05/08/20 History Gabapentin [Neurontin] 300 mg PO QAM 10/28/19 05/08/20 History fentaNYL 50MCG/HR PATCH [Duragesic 1 patch TRANSDERM Q72H patch 11/02/19 05/08/20 Rx 50MCG/HR] INSULIN ASPART (NovoLOG) [NovoLOG 5 unit SQ AC-TID 12/09/19 05/08/20 History (formulary)] INSULIN ASPART (NovoLOG) [NovoLOG See Protocol SQ ACHS 12/09/19 05/08/20 History (formulary)] ALPRAZolam [Xanax] 0.5 mg PO BID PRN 05/08/20 05/08/20 History Ferrous Gluconate 324 mg PO DAILY 05/08/20 05/08/20 History Insulin Glargine,Hum.rec.anlog 16 unit SQ DAILY 05/08/20 05/08/20 History [Lantus Solostar] Insulin Glargine,Hum.rec.anlog 20 unit SQ HS 05/08/20 05/08/20 History [Lantus Solostar] Allergies Allergy/AdvReac Type Severity Reaction Status Date / Time metformin HCl Allergy "kidneys Verified 05/09/20 14:14 [From Glucophage] shut down" Physical Exam Vitals: Vital Signs Temp Pulse Pulse Resp BP BP Pulse Ox 05/09/20 06:50 64 18 05/09/20 05:24 97.9 F 64 18 124/65 94 L 05/08/20 22:24 97.3 F L 60 18 141/81 94 L 05/08/20 19:25 96.9 F L 76 18 135/76 94 L Intake and Output 05/08/20 05/09/20 05/09/20 22:59 06:59 14:59 Other: Voiding Method Diaper Weight 86.183 kg 86.183 kg Results CBC & Chem 7: 05/09/20 21:02 05/08/20 22:09 Labs: Abnormal Lab Results - Last 24 Hours (Table) 05/08/20 05/08/20 Range/Units 22:09 22:13 WBC 17.9 H (3.8-10.6) k/uL RDW 15.6 H (11.5-15.5) % Neutrophils # 13.2 H (1.3-7.7) k/uL Sodium 134 L (137-145) mmol/L BUN 26 H (7-17) mg/dL Glucose 220 H (74-99) mg/dL AST 64 H (14-36) U/L ALT 45 H (4-34) U/L Alkaline Phosphatase 174 H (38-126) U/L
[2020-05-09] MEDS: TROSPIUM CHLORIDE 20 MG TABLET PO SCH (23:11)
[2020-05-10] MEDS: LACTATED RINGERS 1,000 ML IV SCH ×2 (00:29→13:00)
[2020-05-10] MEDS: HYDROmorphone 0.5 MG/0.5 ML SYRINGE IVP PRN (00:38)
[2020-05-10] MEDS: HYDROcodone/APAP 5-325MG 1 EACH TAB PO PRN ×3 (03:27→20:18)
[2020-05-10] MEDS: ALPRAZolam 0.5 MG TAB PO PRN ×2 (03:28→20:18)
[2020-05-10 06:46] LABS: Glucose,Whole Blood 160 mg/dL (75-99)
[2020-05-10 08:35] LABS: African American GFR (CKD) >90 (>60 ml/min/1.73 sqM); Anion Gap 7 mmol/L; Blood Urea Nitrogen 17 mg/dL (7-17); Calcium 7.6 mg/dL (8.4-10.2); Carbon Dioxide 24 mmol/L (22-30); Chloride 104 mmol/L (98-107); Glucose 107 mg/dL (74-99); Non-African American GFR(CKD) 87 (>60 ml/min/1.73 sqM); Potassium 4.6 mmol/L (3.5-5.1); Sodium 135 mmol/L (137-145)
[2020-05-10] MEDS: INSULIN ASPART (NovoLOG) 100 UNIT/ML VIAL SQ SCH ×4 (08:46→22:06)
[2020-05-10] MEDS: amLODIPine 5 MG TAB PO SCH (08:46)
[2020-05-10] MEDS: BISACODYL 5 MG TABLET.DR PO SCH (08:51)
[2020-05-10] MEDS: GABAPENTIN 300 MG CAP PO SCH ×2 (08:51→20:18)
[2020-05-10] MEDS: ENOXAPARIN 30 MG/0.3 ML SYRINGE SQ SCH (08:51)
[2020-05-10] MEDS: PANTOPRAZOLE 40 MG TABLET PO SCH (08:51)
[2020-05-10] MEDS: METOPROLOL TARTRATE 25 MG TAB PO SCH ×2 (08:51→20:18)
[2020-05-10] MEDS: VENLAFAXINE HCL 75 MG TAB PO SCH ×2 (08:52→20:19)
[2020-05-10] MEDS: INSULIN DETEMIR (LEVEMIR) 100 UNIT/ML SYR SQ SCH ×2 (08:52→22:06)
[2020-05-10] MEDS: TROSPIUM CHLORIDE 20 MG TABLET PO SCH ×2 (08:52→20:18)
[2020-05-10] MEDS ORDERED: ENOXAPARIN 40 MG/0.4 ML SYRINGE SQ SCH (09:00)
--- NOTE | 2020-05-10 10:00 | P.PN ---
Subjective Progress Note Date: 05/10/20 This patient is a 70-year-old female with a past medical history of coronary artery disease status-post PCI and stent placement, hypertension, chronic kidney disease, diabetes mellitus type 2, and paroxysmal atrial fibrillation the presented to [facility] emergency department yesterday via EMS with complaints of left hip pain following a fall at home. X-rays in the emergency department revealed a Left basicervical hip fracture. The patient was admitted under the care of Dr. Pandya for surgical intervention with a consult placed to internal medicine for perioperative medical management. Patient underwent a closed reduction of the left hip with insertion of short intramedullary hip screw on 05/09/[address] Denise. Today's postoperative day #1. The patient is examined bedside. The patient states the pain in her left hip is currently well controlled. She is also complaining of low back pain, although the patient states this is chronic and is not new pain since her fall. She states is is alleviated if she lays flat in bed. Her Evans catheter has not yet been removed. The patient has not yet been out of bed with physical therapy. She denies chest pain, shortness of breath, nausea, vomiting, fevers, chills, numbness or tingling of the left lower extremity. Overall she feels well this morning and has no new complaints. Vital signs stable. Objective - Vital Signs Vital signs: Vital Signs Temp 97.6 F 05/10/20 07:12 Pulse 77 05/10/20 07:12 Resp 16 05/10/20 07:12 BP 109/66 05/10/20 07:12 Pulse Ox 93 L 05/10/20 07:12 Intake & Output 05/09/20 05/10/20 05/10/20 18:59 06:59 18:59 Intake Total 1351.5 600 Output Total 500 1400 Balance 851.5 -800 Intake: IV 1351.5 Oral 600 Output: Urine 400 1400 Estimated Blood Loss 100 Other: Voiding Method Diaper # Voids 1 - Exam On examination, the patient is sitting on the bed in no apparent distress. She is alert and oriented 3. On inspection of the left hip, there are clean, dry, intact surgical dressings in place with no bleeding or drainage through the dressings. The thigh is soft and compressible. Patient has good strength and range of motion of the left ankle. Motor and sensory function are intact in the left lower extremity. Dorsalis pedis pulse +2. The left lower extremity is warm and well perfused with brisk capillary refill distally. Lower extremity compression cuffs in place bilaterally. The calves are soft and nontender to palpation bilaterally. Evans catheter in place. - Labs CBC & Chem 7: 05/09/20 21:02 05/10/20 07:53 Labs: Abnormal Lab Results - Last 24 Hours (Table) 05/09/20 05/09/20 05/09/20 Range/Units 09:35 14:30 16:55 WBC (3.8-10.6) k/uL Hgb (11.4-16.0) gm/dL MCHC (31.0-37.0) g/dL Neutrophils # (1.3-7.7) k/uL Sodium (137-145) mmol/L Glucose (74-99) mg/dL POC Glucose (mg/dL) 203 H 166 H 149 H (75-99) mg/dL Calcium (8.4-10.2) mg/dL 05/09/20 05/09/20 05/10/20 Range/Units 20:14 21:02 06:45 WBC 17.2 H (3.8-10.6) k/uL Hgb 11.3 L (11.4-16.0) gm/dL MCHC 29.7 L (31.0-37.0) g/dL Neutrophils # 13.2 H (1.3-7.7) k/uL Sodium (137-145) mmol/L Glucose (74-99) mg/dL POC Glucose (mg/dL) 222 H 160 H (75-99) mg/dL Calcium (8.4-10.2) mg/dL 05/10/20 Range/Units 07:53 WBC (3.8-10.6) k/uL Hgb (11.4-16.0) gm/dL MCHC (31.0-37.0) g/dL Neutrophils # (1.3-7.7) k/uL Sodium 135 L (137-145) mmol/L Glucose 107 H (74-99) mg/dL POC Glucose (mg/dL) (75-99) mg/dL Calcium 7.6 L (8.4-10.2) mg/dL Assessment and Plan Assessment: Status-post closed reduction of left hip with insertion of short intramedullary hip screw on 05/09/[address] Denise. Postoperative day #1. Plan: - Toe-touch weightbearing on the operative extremity. Up with assistance, up with a walker. - Physical therapy for gait and balance training. - 2 doses of post-operative antibiotics complete. - Lovenox 30 mg daily for DVT prophylaxis. - Pain management as needed. - Anticipate discharge to rehab within the next 1-2 days, pending medical clearance.
[2020-05-10 11:43] LABS: Glucose,Whole Blood 170 mg/dL (75-99)
[2020-05-10 17:03] LABS: Glucose,Whole Blood 173 mg/dL (75-99)
--- NOTE | 2020-05-10 19:59 | P.PN ---
Progress Note - Text Progress Note Date: 05/10/20 - Chief Complaint Fall - History of Present Illness Consultation: This is a 70-year-old patient of visiting physician Dr. Amanuel Smith. 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 Patient normally uses a wheelchair. Lives with her daughter. Unsteady on her feet knee often gives out. 2 days ago patient took a fall injuring her left hip. Local pain. Found to have fracture of the left femur. Patient had a coronary stent over 20 years ago. Has not really had a follow-up. At baseline no chest pain no shortness of breath. Exercise tolerance is greatly limited because of above. Patient's daughter is at bedside. Patient underwent IM hip screw on May 09. Today-sitting upon a chair. Some pain in the operative site. Did tolerate her diet. No nausea vomiting. Review of systems: Was done for constitutional, cardiovascular, GI, pulmonary. Musculoskeletal relevant finding as above Active Medications Hydrocodone Bitart/Acetaminophen ([place] 5-325) 1 each PO Q6HR PRN PRN Reason: Pain Last Admin: 05/10/20 11:28 Dose: 1 each Documented by: Alprazolam (Xanax) 0.5 mg PO BID PRN PRN Reason: Anxiety Last Admin: 05/10/20 03:28 Dose: 0.5 mg Documented by: Amlodipine Besylate (Norvasc) 5 mg PO DAILY [facility] Last Admin: 05/10/20 08:46 Dose: Not Given Documented by: Atorvastatin Calcium (Lipitor) 40 mg PO HS [facility] Last Admin: 05/09/20 21:47 Dose: 40 mg Documented by: Bisacodyl (Dulcolax) 5 mg PO QAM [facility] Last Admin: 05/10/20 08:51 Dose: 5 mg Documented by: Enoxaparin Sodium (Lovenox) 30 mg SQ DAILY [facility] Last Admin: 05/10/20 08:51 Dose: 30 mg Documented by: Fentanyl (Duragesic 50mcg/Hr Patch) 1 patch TRANSDERM Q72H [facility] Last Admin: 05/09/20 19:46 Dose: 1 patch Documented by: Gabapentin (Neurontin) 300 mg PO QAM [facility] Last Admin: 05/10/20 08:51 Dose: 300 mg Documented by: Gabapentin (Neurontin) 600 mg PO [facility] Last Admin: 05/09/20 21:48 Dose: 600 mg Documented by: Hydromorphone HCl (Dilaudid) 0.125 mg IVP Q3HR PRN PRN Reason: Pain Scale 1 to 3 Hydromorphone HCl (Dilaudid) 0.25 mg IVP Q3HR PRN PRN Reason: Pain Scale 4 to 6 Hydromorphone HCl (Dilaudid) 0.5 mg IVP Q3HR PRN PRN Reason: Pain Scale 7 to 10 Last Admin: 05/10/20 00:38 Dose: 0.5 mg Documented by: Lactated Ringer's (Lactated Ringers) 1,000 mls @ 100 mls/hr IV .Q10H [facility] Last Admin: 05/10/20 13:00 Dose: 100 mls/hr Documented by: Insulin Aspart (Novolog) 0 unit SQ [facility]; Protocol Last Admin: 05/10/20 17:40 Dose: Not Given Documented by: Insulin Detemir (Levemir) 16 unit SQ DAILY [facility] Last Admin: 05/10/20 08:52 Dose: Not Given Documented by: Insulin Detemir (Levemir) 20 unit SQ [facility] Last Admin: 05/09/20 21:46 Dose: 20 unit Documented by: Melatonin (Melatonin) 10 mg PO ONCE PRN PRN Reason: Insomnia Last Admin: 05/08/20 23:32 Dose: 10 mg Documented by: Metoprolol Tartrate (Lopressor) 25 mg PO BID [facility] Last Admin: 05/10/20 08:51 Dose: 25 mg Documented by: Naloxone HCl (Narcan) 0.2 mg IV Q2M PRN PRN Reason: Opioid Reversal Nystatin (Mycostatin Powder) 1 applic TOPICAL DAILY PRN PRN Reason: Skin Irritation Ondansetron HCl (Zofran) 4 mg PO Q8H PRN PRN Reason: Nausea Last Admin: 05/09/20 14:24 Dose: 4 mg Documented by: Pantoprazole Sodium (Protonix) 40 mg PO DAILY [facility] Last Admin: 05/10/20 08:51 Dose: 40 mg Documented by: Ropinirole HCl (Requip) 0.25 mg PO [facility] Last Admin: 05/09/20 21:47 Dose: 0.25 mg Documented by: Senna/Docusate Sodium (Senokot-S) 2 each PO [facility] Last Admin: 05/09/20 21:48 Dose: 2 each Documented by: Trospium (Sanctura) 20 mg PO BID [facility] Last Admin: 05/10/20 08:52 Dose: 20 mg Documented by: Venlafaxine HCl (Effexor) 150 mg PO [facility] Last Admin: 05/09/20 23:11 Dose: 150 mg Documented by: Venlafaxine HCl (Effexor) 75 mg PO QAM [facility] Last Admin: 05/10/20 08:52 Dose: 75 mg Documented by: Physical examination: VITAL SIGNS: 97.6, 77, 16, 109/66, 93% on 3 L GENERAL: Sitting up in a chair, awake EYES: Pupils equal. Conjunctiva normal. HEENT: External appearance of nose and ears normal, oral cavity grossly normal. NECK: JVD not raised; masses not palpable. HEART: First and second heart sounds are normal; no edema. LUNGS: Respiratory rate normal; distant breath sounds. ABDOMEN: Soft, nontender, liver spleen not palpable, no masses palpable. PSYCH: Alert and oriented x3; mood and affect normal. MUSCULOSKELETAL: Limite d range of motion of left hip, evidence of OA in multiple joints INVESTIGATIONS, reviewed in the clinical context: Creatinine 0.6 Accu-Cheks noted Previous testing White count 20.9 hemoglobin 12.9 platelets 253 potassium bun 26 creatinine 0.96% glucose 220 COVID 19-PCR-not detected Computed tomography scan of the brain showing some chronic cerebral atrophy X-ray of the hip showing left femur neck fracture. EKG tracing personally reviewed by me-normal sinus rhythm Chest x-ray film personally reviewed by me-underpenetrated no obvious abnormality Assessment: -Left femur neck fracture secondary to fall followed by IM Screw -Paroxysmal atrial fibrillation currently in sinus rhythm -Coronary artery disease with a history of stent in the remote past. Patient has no active cardiac symptoms. Exercise tolerance a great limited. Will not benefit fed anymore testing at the present time. -Diabetes mellitus type 2 on oral hypoglycemic -Essential hypertension -Hyperlipidemia -Hiatal hernia -DJD -Diabetic peripheral neuropathy -Chronic gait dysfunction uses a wheelchair at baseline -Restless leg syndrome -Obesity BMI 32.6 -Cardiovascular risk assessment-moderate risk. This was discussed with the patient daughter. They understand the same. No medical contraindications otherwise to proceed for surgery. At this point no further current workup is indicated. Plan: We'll DC IV fluids. On Lovenox for DT prophylaxis. Care discussed with the patient. Continue current medications. Thank you Dr. Denise
[2020-05-10] MEDS: ATORVASTATIN 40 MG TAB PO SCH (20:18)
[2020-05-10] MEDS: SENNOSIDES-DOCUSATE SODIUM 1 EACH TAB PO SCH (20:18)
[2020-05-10 21:49] LABS: Glucose,Whole Blood 204 mg/dL (75-99)
[2020-05-11] MEDS: HYDROmorphone 0.5 MG/0.5 ML SYRINGE IVP PRN ×2 (00:30→11:47)
[2020-05-11 06:59] LABS: Glucose,Whole Blood 110 mg/dL (75-99)
[2020-05-11 08:59] LABS: Basophils # (A) 0.1 k/uL (0-0.2); Basophils % (A) 1 %; Eosinophils # (A) 0.5 k/uL (0-0.7); Eosinophils % (A) 5 %; HGB 10.6 gm/dL (11.4-16.0); Lymphocytes # (A) 3.5 k/uL (1.0-4.8); Lymphocytes % (A) 30 %; MCH 25.9 pg (25.0-35.0); MCHC 30.4 g/dL (31.0-37.0); MCV 85.2 fL (80.0-100.0); Mean Platelet Volume 9.3; Monocytes # (A) 0.6 k/uL (0-1.0); Monocytes % (A) 5 %; Neutrophils # (A) 6.8 k/uL (1.3-7.7); Neutrophils % (A) 59 %; Platelet Count 259 k/uL (150-450); RBC 4.11 m/uL (3.80-5.40); RDW 15.3 % (11.5-15.5); WBC 11.6 k/uL (3.8-10.6)
[2020-05-11] MEDS: GABAPENTIN 300 MG CAP PO SCH ×2 (09:36→21:30)
[2020-05-11] MEDS: amLODIPine 5 MG TAB PO SCH (09:37)
[2020-05-11] MEDS: INSULIN ASPART (NovoLOG) 100 UNIT/ML VIAL SQ SCH ×4 (09:37→21:31)
[2020-05-11] MEDS: ENOXAPARIN 30 MG/0.3 ML SYRINGE SQ SCH (09:41)
[2020-05-11] MEDS: BISACODYL 5 MG TABLET.DR PO SCH (09:41)
[2020-05-11] MEDS: PANTOPRAZOLE 40 MG TABLET PO SCH (09:41)
[2020-05-11] MEDS: METOPROLOL TARTRATE 25 MG TAB PO SCH ×2 (09:41→21:30)
[2020-05-11] MEDS: TROSPIUM CHLORIDE 20 MG TABLET PO SCH ×2 (09:42→21:29)
[2020-05-11] MEDS: VENLAFAXINE HCL 75 MG TAB PO SCH ×2 (09:43→21:29)
[2020-05-11] MEDS: INSULIN DETEMIR (LEVEMIR) 100 UNIT/ML SYR SQ SCH ×2 (09:44→21:30)
[2020-05-11] MEDS: HYDROcodone/APAP 5-325MG 1 EACH TAB PO PRN (10:33)
[2020-05-11 11:14] LABS: Glucose,Whole Blood 158 mg/dL (75-99)
--- NOTE | 2020-05-11 13:40 | P.PN ---
Subjective Progress Note Date: 05/11/20 This patient is a 70-year-old female with a past medical history of coronary artery disease status-post PCI and stent placement, hypertension, chronic kidney disease, diabetes mellitus type 2, and paroxysmal atrial fibrillation the presented to [facility] emergency department yesterday via EMS with complaints of left hip pain following a fall at home. X-rays in the emergency department revealed a Left basicervical hip fracture. The patient was admitted under the care of Dr. Pandya for surgical intervention with a consult placed to internal medicine for perioperative medical management. Patient underwent a closed reduction of the left hip with insertion of short intramedullary hip screw on 05/09/[address] Denise. Today's postoperative day #2. The patient is examined bedside. The patient states the pain in her left hip is currently well-controlled. Patient is complaining of bilateral foot pain this morning, she states this pain is chronic due to her neuropathy. She states the pain was relieved last night with gabapentin. Her Evans catheter has not been removed, although per nursing, they are planning to remove it early this morning. The patient is tolerating her diet well. She was up with physical therapy yesterday to the bedside chair. She denies back pain today. She denies chest pain, shortness breath, nausea, vomiting, fevers, chills, or tingling of the lower extremity. Overall she is feeling well with no additional complaints today. Vital signs stable. Objective - Vital Signs Vital signs: Vital Signs Temp 98.3 F 05/11/20 02:00 Pulse 71 05/11/20 02:00 Resp 16 05/10/20 14:30 BP 128/80 05/11/20 02:00 Pulse Ox 97 05/11/20 02:00 Intake & Output 05/10/20 05/11/20 05/11/20 18:59 06:59 18:59 Intake Total 500 Output Total 750 1600 Balance -250 -1600 Intake: Oral 500 Output: Urine 750 1600 Uretheral (Evans) 750 Other: Voiding Method Bedside Commode Bedpan - Exam On examination, the patient is sitting on the bed in no apparent distress. She is alert and oriented 3. On inspection of the left hip, there are clean, dry, intact surgical dressings in place with no bleeding or drainage through the dressings. The thigh is soft and compressible. Patient has good strength and range of motion of the left ankle. Motor and sensory function are intact in the left lower extremity. Dorsalis pedis pulse +2. The left lower extremity is warm and well perfused with brisk capillary refill distally. Lower extremity compression cuffs in place bilaterally. The calves are soft and nontender to palpation bilaterally. On inspection of her bilateral feet, there is no swelling, erythema, warmth, fluctuance. No signs of infection. There is no pain on palpation at the dorsal or plantar feet bilaterally. Evans catheter in place. - Labs CBC & Chem 7: 05/11/20 08:12 05/10/20 07:53 Labs: Abnormal Lab Results - Last 24 Hours (Table) 05/10/20 05/10/20 05/11/20 Range/Units 16:59 21:47 06:57 WBC (3.8-10.6) k/uL Hgb (11.4-16.0) gm/dL MCHC (31.0-37.0) g/dL POC Glucose (mg/dL) 173 H 204 H 110 H (75-99) mg/dL 05/11/20 05/11/20 Range/Units 08:12 11:12 WBC 11.6 H (3.8-10.6) k/uL Hgb 10.6 L (11.4-16.0) gm/dL MCHC 30.4 L (31.0-37.0) g/dL POC Glucose (mg/dL) 158 H (75-99) mg/dL Assessment and Plan Assessment: Status-post closed reduction of left hip with insertion of short intramedullary hip screw on 05/09/[address] Denise. Postoperative day #2. Plan: - Toe-touch weightbearing on the operative extremity. Up with assistance, up with a walker. - Physical therapy for gait and balance training. - 2 doses of post-operative antibiotics complete. - Lovenox 30 mg daily for DVT prophylaxis. - Pain management as needed. - Anticipate discharge to rehab within the next 1-2 days, pending medical clearance.
[2020-05-11 16:37] LABS: Glucose,Whole Blood 142 mg/dL (75-99)
[2020-05-11 17:37] LABS: Basophils # (A) 0.1 k/uL (0-0.2); Basophils % (A) 1 %; Eosinophils # (A) 0.5 k/uL (0-0.7); Eosinophils % (A) 5 %; HGB 10.5 gm/dL (11.4-16.0); Hypochromasia Slight; Lymphocytes # (A) 3.2 k/uL (1.0-4.8); Lymphocytes % (A) 28 %; MCH 27.4 pg (25.0-35.0); MCHC 31.7 g/dL (31.0-37.0); MCV 86.3 fL (80.0-100.0); Mean Platelet Volume 8.3; Monocytes # (A) 0.6 k/uL (0-1.0); Monocytes % (A) 5 %; Neutrophils # (A) 6.7 k/uL (1.3-7.7); Neutrophils % (A) 60 %; Platelet Count 293 k/uL (150-450); RBC 3.82 m/uL (3.80-5.40); RDW 14.9 % (11.5-15.5); WBC 11.1 k/uL (3.8-10.6)
[2020-05-11] MEDS: HYDROcodone/APAP 7.5-325MG 1 EACH TAB PO PRN ×2 (17:39→22:28)
[2020-05-11 20:36] LABS: Glucose,Whole Blood 180 mg/dL (75-99)
[2020-05-11] MEDS: SENNOSIDES-DOCUSATE SODIUM 1 EACH TAB PO SCH (21:30)
[2020-05-11] MEDS: ATORVASTATIN 40 MG TAB PO SCH (21:30)
--- NOTE | 2020-05-11 23:18 | P.PN ---
Progress Note - Text Progress Note Date: 05/11/20 - Chief Complaint Fall - History of Present Illness Consultation: This is a 70-year-old patient of visiting physician Dr. Amanuel Smith. 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 Patient normally uses a wheelchair. Lives with her daughter. Unsteady on her feet knee often gives out. 2 days ago patient took a fall injuring her left hip. Local pain. Found to have fracture of the left femur. Patient had a coronary stent over 20 years ago. Has not really had a follow-up. At baseline no chest pain no shortness of breath. Exercise tolerance is greatly limited because of above. Patient's daughter is at bedside. Patient underwent IM hip screw on May 09. Today-laying in bed. No new issues. Some pain is present. 2-D some breakfast. Review of systems: Was done for constitutional, cardiovascular, GI, pulmonary. Musculoskeletal relevant finding as above Active Medications Hydrocodone Bitart/Acetaminophen ([place] 7.5-325) 1 each PO Q6H PRN PRN Reason: Pain Last Admin: 05/11/20 22:28 Dose: 1 each Documented by: Alprazolam (Xanax) 0.5 mg PO BID PRN PRN Reason: Anxiety Last Admin: 05/10/20 20:18 Dose: 0.5 mg Documented by: Amlodipine Besylate (Norvasc) 5 mg PO DAILY [facility] Last Admin: 05/11/20 09:37 Dose: 5 mg Documented by: Atorvastatin Calcium (Lipitor) 40 mg PO HS [facility] Last Admin: 05/11/20 21:30 Dose: 40 mg Documented by: Bisacodyl (Dulcolax) 5 mg PO QAM [facility] Last Admin: 05/11/20 09:41 Dose: 5 mg Documented by: Enoxaparin Sodium (Lovenox) 30 mg SQ DAILY [facility] Last Admin: 05/11/20 09:41 Dose: 30 mg Documented by: Fentanyl (Duragesic 50mcg/Hr Patch) 1 patch TRANSDERM Q72H [facility] Last Admin: 05/09/20 19:46 Dose: 1 patch Documented by: Gabapentin (Neurontin) 300 mg PO QAM [facility] Last Admin: 05/11/20 09:36 Dose: 300 mg Documented by: Gabapentin (Neurontin) 600 mg PO [facility] Last Admin: 05/11/20 21:30 Dose: 600 mg Documented by: Hydromorphone HCl (Dilaudid) 0.125 mg IVP Q3HR PRN PRN Reason: Pain Scale 1 to 3 Hydromorphone HCl (Dilaudid) 0.25 mg IVP Q3HR PRN PRN Reason: Pain Scale 4 to 6 Hydromorphone HCl (Dilaudid) 0.5 mg IVP Q3HR PRN PRN Reason: Pain Scale 7 to 10 Last Admin: 05/11/20 11:47 Dose: 0.5 mg Documented by: Insulin Aspart (Novolog) 0 unit SQ [facility]; Protocol Last Admin: 05/11/20 21:31 Dose: 2 unit Documented by: Insulin Detemir (Levemir) 16 unit SQ DAILY [facility] Last Admin: 05/11/20 09:44 Dose: 16 unit Documented by: Insulin Detemir (Levemir) 20 unit SQ [facility] Last Admin: 05/11/20 21:30 Dose: 20 unit Documented by: Melatonin (Melatonin) 10 mg PO ONCE PRN PRN Reason: Insomnia Last Admin: 05/08/20 23:32 Dose: 10 mg Documented by: Metoprolol Tartrate (Lopressor) 25 mg PO BID [facility] Last Admin: 05/11/20 21:30 Dose: 25 mg Documented by: Naloxone HCl (Narcan) 0.2 mg IV Q2M PRN PRN Reason: Opioid Reversal Nystatin (Mycostatin Powder) 1 applic TOPICAL DAILY PRN PRN Reason: Skin Irritation Ondansetron HCl (Zofran) 4 mg PO Q8H PRN PRN Reason: Nausea Last Admin: 05/09/20 14:24 Dose: 4 mg Documented by: Pantoprazole Sodium (Protonix) 40 mg PO DAILY [facility] Last Admin: 05/11/20 09:41 Dose: 40 mg Documented by: Ropinirole HCl (Requip) 0.25 mg PO [facility] Last Admin: 05/11/20 21:30 Dose: 0.25 mg Documented by: Senna/Docusate Sodium (Senokot-S) 2 each PO [facility] Last Admin: 05/11/20 21:30 Dose: 2 each Documented by: Trospium (Sanctura) 20 mg PO BID [facility] Last Admin: 05/11/20 21:29 Dose: 20 mg Documented by: Venlafaxine HCl (Effexor) 150 mg PO HS [facility] Last Admin: 05/11/20 21:29 Dose: 150 mg Documented by: Venlafaxine HCl (Effexor) 75 mg PO QAM [facility] Last Admin: 05/11/20 09:43 Dose: 75 mg Documented by: Physical examination: VITAL SIGNS: 98.2, 77, 16, 140-17, 98% on 3 L GENERAL: Laying in bed, comfortable EYES: Pupils equal. Conjunctiva normal. HEENT: External appearance of nose and ears normal, oral cavity grossly normal. NECK: JVD not raised; masses not palpable. HEART: First and second heart sounds are normal; no edema. LUNGS: Respiratory rate normal; distant breath sounds. ABDOMEN: Soft, nontender, liver spleen not palpable, no masses palpable. PSYCH: Alert and oriented x3; mood and affect normal. MUSCULOSKELETAL: Limited range of motion of left hip, evidence of OA in multiple joints INVESTIGATIONS, reviewed in the clinical context: White count 11.1 hemoglobin 10.5 Previous testing White count 20.9 hemoglobin 12.9 platelets 253 potassium bun 26 creatinine 0.96% glucose 220 COVID 19-PCR-not detected Computed tomography scan of the brain showing some chronic cerebral atrophy X-ray of the hip showing left femur neck fracture. EKG tracing personally reviewed by me-normal sinus rhythm Chest x-ray film personally reviewed by me-underpenetrated no obvious abnormality Assessment: -Left femur neck fracture secondary to fall followed by IM Screw -Paroxysmal atrial fibrillation currently in sinus rhythm -Coronary artery disease with a history of stent in the remote past. Patient has no active cardiac symptoms. Exercise tolerance a great limited. Will not benefit fed anymore testing at the present time. -Diabetes mellitus type 2 on oral hypoglycemic -Essential hypertension -Hyperlipidemia -Hiatal hernia -DJD -Diabetic peripheral neuropathy -Chronic gait dysfunction uses a wheelchair at baseline -Restless leg syndrome -Obesity BMI 32.6 Plan: Care was discussed with the patient. Continue current medication treatment plan. Thank you Dr. Denise
[2020-05-12] MEDS: HYDROcodone/APAP 7.5-325MG 1 EACH TAB PO PRN ×2 (04:41→10:51)
[2020-05-12 06:59] LABS: Glucose,Whole Blood 120 mg/dL (75-99)
[2020-05-12] MEDS: GABAPENTIN 300 MG CAP PO SCH (07:24)
[2020-05-12] MEDS: VENLAFAXINE HCL 75 MG TAB PO SCH (07:25)
[2020-05-12] MEDS: BISACODYL 5 MG TABLET.DR PO SCH (07:25)
[2020-05-12] MEDS: METOPROLOL TARTRATE 25 MG TAB PO SCH (07:25)
[2020-05-12] MEDS: amLODIPine 5 MG TAB PO SCH (07:25)
[2020-05-12] MEDS: TROSPIUM CHLORIDE 20 MG TABLET PO SCH (07:25)
[2020-05-12] MEDS: PANTOPRAZOLE 40 MG TABLET PO SCH (07:25)
[2020-05-12] MEDS: ENOXAPARIN 30 MG/0.3 ML SYRINGE SQ SCH (07:26)
[2020-05-12] MEDS: INSULIN DETEMIR (LEVEMIR) 100 UNIT/ML SYR SQ SCH (07:26)
[2020-05-12] MEDS: INSULIN ASPART (NovoLOG) 100 UNIT/ML VIAL SQ SCH ×2 (07:26→11:52)
[2020-05-12 11:11] LABS: Glucose,Whole Blood 160 mg/dL (75-99)
--- NOTE | 2020-05-12 12:26 | P.DS ---
Providers Date of admission: 05/08/20 21:39 Expected date of discharge: 05/12/20 Attending physician: Dallin Denise Consults: 05/08/20 22:32 Consult Physician Stat Consulting Provider: Sharif Ernst Consult Reason/Comments: left femur fracture, pre op clearance Do you want consulting provider notified?: Yes Primary care physician: Amanuel Wilkinson MD Hospital Course: This is a 70-year-old female who presented to [facility] ED on 05/08/20 after falling and sustaining injury to the left hip. On exam and x-ray in the emergency department she was found to have a left basicervical femoral neck fracture. The patient was admitted under the care of Dr. Denise for surgical intervention and care, with a consultation placed to internal medicine for perioperative medical management. The patient is taken to surgery for operative fixation of left basicervical hip fracture with short intramedullary hip screw on 05/09/20. The procedure is performed without complication or sequelae. The patient is doing well postoperatively. Vital signs are stable on postop day #3. The patient was examined bedside this morning. Patient states her pain is very well-controlled and her left hip. She has not yet been up with physical therapy today, although she had minimal issue with transferring yesterday to the chair. She is voiding freely without issue, herman catheter was removed yesterday morning. She is tolerating her diet well. She has had a bowel movement postoperatively, she denies current abdominal pain. She overall feels well today. She denies chest pain, shortness breath, nausea, vomiting, fevers, chills. Vital signs stable. On examination, the patient is sitting in bed in no apparent distress. She is alert and oriented 3. On inspection of the left hip, there is a clean, dry, intact dressing in place. There is no drainage through the dressing. There is no surrounding erythema, warmth, or drainage. There are no signs of infection. Thigh is soft and compressible. Left lower extremity is warm and well-perfused with brisk capillary refill. Dorsalis pedis pulse +2. Motor and sensory function intact of the left lower extremity. She has good strength and range of motion of the left ankle. The calves are soft and non-tender to palpation bilaterally. The patient is discharged to rehab today, pending medical clearance today. Ple ase refer to the [facility] rec for accurate list of medications. Patient Condition at Discharge: Fair Plan - Discharge Summary New Discharge Prescriptions: New Enoxaparin Sodium [Lovenox] 30 mg SQ DAILY #28 syringe Melatonin 10 mg PO ONCE PRN tablet PRN Reason: Insomnia Sennosides-Docusate Sodium [Senokot-S] 2 each PO HS tab HYDROcodone/APAP 5-325MG [[place] 5-325] 1 tab PO Q6HR PRN 7 Days #28 tab PRN Reason: Pain Continue Atorvastatin [Lipitor] 40 mg PO HS #30 tablet amLODIPine [Norvasc] 5 mg PO DAILY #30 tab Solifenacin Succinate [Vesicare] 10 mg PO HS Pantoprazole Sodium 40 mg PO DAILY Ondansetron [Zofran] 4 mg PO Q8H PRN PRN Reason: Nausea Gabapentin [Neurontin] 600 mg PO HS Nystatin [Nystop] 1 applic TOPICAL DAILY PRN PRN Reason: Skin Irritation Bisacodyl [Dulcolax] 5 mg PO QAM Venlafaxine HCl [Effexor] 150 mg PO HS Venlafaxine HCl [Effexor] 75 mg PO QAM Aspirin [Adult Low Dose Aspirin EC] 81 mg PO DAILY rOPINIRole HCL [Requip] 0.25 mg PO HS Metoprolol Tartrate 25 mg PO BID INSULIN ASPART (NovoLOG) [NovoLOG (formulary)] 5 unit SQ AC-TID INSULIN ASPART (NovoLOG) [NovoLOG (formulary)] See Protocol SQ ACHS Ferrous Gluconate 324 mg PO DAILY fentaNYL 50MCG/HR PATCH [Duragesic 50MCG/HR] 1 patch TRANSDERM Q72H #1 patch Gabapentin [Neurontin] 300 mg PO QAM #3 cap ALPRAZolam [Xanax] 0.5 mg PO BID PRN #6 tab PRN Reason: Anxiety Changed Insulin Glargine,Hum.rec.anlog [Lantus Solostar] 30 unit SQ HS #0 Discontinued Insulin Glargine,Hum.rec.anlog [Lantus Solostar] 16 unit SQ DAILY Discharge Medication List Atorvastatin [Lipitor] 40 mg PO HS #30 tablet 04/06/14 [Rx] amLODIPine [Norvasc] 5 mg PO DAILY #30 tab 04/06/14 [Rx] Pantoprazole Sodium 40 mg PO DAILY 08/10/14 [History] Solifenacin Succinate [Vesicare] 10 mg PO HS 08/10/14 [History] Ondansetron [Zofran] 4 mg PO Q8H PRN 03/26/16 [History] Gabapentin [Neurontin] 600 mg PO HS 04/02/16 [History] Nystatin [Nystop] 1 applic TOPICAL DAILY PRN 02/14/17 [History] Bisacodyl [Dulcolax] 5 mg PO QAM 05/18/17 [History] Venlafaxine HCl [Effexor] 75 mg PO QAM 05/18/17 [History] Venlafaxine HCl [Effexor] 150 mg PO HS 05/18/17 [History] Aspirin [Adult Low Dose Aspirin EC] 81 mg PO DAILY 09/14/18 [History] rOPINIRole HCL [Requip] 0.25 mg PO HS 06/06/19 [History] Metoprolol Tartrate 25 mg PO BID 10/07/19 [History] INSULIN ASPART (NovoLOG) [NovoLOG (formulary)] 5 unit SQ AC-TID 12/09/19 [History] INSULIN ASPART (NovoLOG) [NovoLOG (formulary)] See Protocol SQ ACHS 12/09/19 [History] Ferrous Gluconate 324 mg PO DAILY 05/08/20 [History] ALPRAZolam [Xanax] 0.5 mg PO BID PRN #6 tab 05/11/20 [Rx] Enoxaparin Sodium [Lovenox] 30 mg SQ DAILY #28 syringe 05/11/20 [Rx] Gabapentin [Neurontin] 300 mg PO QAM #3 cap 05/11/20 [Rx] Insulin Glargine,Hum.rec.anlog [Lantus Solostar] 30 unit SQ HS #0 05/11/20 [Rx] Melatonin 10 mg PO ONCE PRN tablet 05/11/20 [Rx] Sennosides-Docusate Sodium [Senokot-S] 2 each PO HS tab 05/11/20 [Rx] fentaNYL 50MCG/HR PATCH [Duragesic 50MCG/HR] 1 patch TRANSDERM Q72H #1 patch 05/11/20 [Rx] HYDROcodone/APAP 5-325MG [[place] 5-325] 1 tab PO Q6HR PRN 7 Days #28 tab 05/12/20 [Rx] Follow up Appointment(s)/Referral(s): Amanuel Wilkinson MD [Primary Care Provider] - 1-2 days Елена Robert [NON-STAFF] - As Needed Diego Umanzor MD [STAFF PHYSICIAN] - 2 Weeks Activity/Diet/Wound Care/Special Instructions: Toe touch weight bearing on operative leg. Daily dressing changes. Physical therapy for gait and balance training. Lovenox for 4 weeks for DVT prophylaxis. Follow-up in the office in 2 weeks. Call office with any questions or concerns medically ok to dc Discharge Disposition: TRANSFER TO SNF/ECF
[2020-05-12 15:39] VITALS: BP 95/42; PULSE 69; RESP 18; TEMP 98
--- NOTE | 2020-05-13 18:22 | P.PN ---
Progress Note - Text Progress Note Date: 05/12/20 - Chief Complaint Fall Consultation: This is a 70-year-old patient of visiting physician Dr. Amanuel Smith. 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 Patient normally uses a wheelchair. Lives with her daughter. Unsteady on her feet knee often gives out. 2 days ago patient took a fall injuring her left hip. Local pain. Found to have fracture of the left femur. Patient had a coronary stent over 20 years ago. Has not really had a follow-up. At baseline no chest pain no shortness of breath. Exercise tolerance is greatly limited because of above. Patient's daughter is at bedside. Patient underwent IM hip screw on May 09. Today-laying in bed. Comfortable. No new issues. Pain control. Quit at [facility] today. Review of systems: Was done for constitutional, cardiovascular, GI, pulmonary. Musculoskeletal relevant finding as above Current medications reviewed in today's electronic records Physical examination: VITAL SIGNS: 97.9, 72, 17, 127th 79, 92% on room air GENERAL: Laying in bed, comfortable EYES: Pupils equal. Conjunctiva normal. HEENT: External appearance of nose and ears normal, oral cavity grossly normal. NECK: JVD not raised; masses not palpable. HEART: First and second heart sounds are normal; no edema. LUNGS: Respiratory rate normal; distant breath sounds. ABDOMEN: Soft, nontender, liver spleen not palpable, no masses palpable. PSYCH: Alert and oriented x3; mood and affect normal. MUSCULOSKELETAL: Limited range of motion of left hip, evidence of OA in multiple joints INVESTIGATIONS, reviewed in the clinical context: White count 11.1 hemoglobin 10.5 Previous testing White count 20.9 hemoglobin 12.9 platelets 253 potassium bun 26 creatinine 0.96% glucose 220 COVID 19-PCR-not detected Computed tomography scan of the brain showing some chronic cerebral atrophy X-ray of the hip showing left femur neck fracture. EKG tracing personally reviewed by me-normal sinus rhythm Chest x-ray film personally reviewed by me-underpenetrated no obvious abnormality Assessment: -Left femur neck fracture secondary to fall followed by IM Screw -Paroxysmal atrial fibrillation currently in sinus rhythm -Coronary artery disease with a history of stent in the remote past. Patient has no active cardiac symptoms. Exercise tolerance a great limited. Will not benefit fed anymore testing at the present time. -Diabetes mellitus type 2 on oral hypoglycemic -Essential hypertension -Hyperlipidemia -Hiatal hernia -DJD -Diabetic peripheral neuropathy -Chronic gait dysfunction uses a wheelchair at baseline -Restless leg syndrome -Obesity BMI 32.6 Plan: -Stable. Continue current medication treatment plan. Follow with PCP. Thank you Dr. Denise
--- NOTE | 2020-05-15 16:16 | CDI ---
Documentation Clarification Form Date: 05/15/20 From: Rupa Gonzáles CCS Phone: If you have a question about this query, please contact Malika East, [employer] at [phone] between 8am and 5pm. Admit Date: 05/08/20 Discharge Date: 05/12/20 Patient Name: Michelle Cuba Visit Number: [id number] ATTENTION: The Clinical Documentation Specialists (CDI) and [facility] Coding Staff appreciate your assistance in clarifying documentation. Please respond to the clarification below the line at the bottom and electronically sign. The CDI & [facility] Coding staff will review the response and follow-up if needed. Please note: Queries are made part of the Legal Health Record. If you have any questions, please contact the author of this message via ITS. Dear Dr. Ernst, CKD is documented in the H&P, PNs. History/Risk Factors: HTN, DM Clinical Indicators: Chronic kidney disease Current BUN: 26 Creatnine: .96 GFR: 59, 87 In order to capture the severity of condition, please clarify the stage of the CKD, if known: CKD Stage 1 (GFR > 90) CKD Stage 2 (GFR 60-89) CKD Stage 3 (GFR 30-59) CKD Stage 4 (GFR 15-29) CKD Stage 5 (GFR <15) ESRD Other, please specify Unable to determine NO CKD MTDD
== END 2020-05-12 16:05 | DRG 482 ==
LOC: EC 19:19 → 4SSUR 21:39
PROVIDERS: ADMIT Orthopaedic Surgery; ATTEND Orthopaedic Surgery
PROC: 0QS736Z Reposition Left Upper Femur with Intramedullary Internal Fixation Device, Percutaneous Approach (ICD-10-PCS; principal; 2020-05-09 14:30)
DX: S72.142A Displaced intertrochanteric fracture of left femur, initial encounter for closed fracture (principal); Z11.59 Encounter for screening for other viral diseases; Z68.32 Body mass index [BMI] 32.0-32.9, adult; E11.42 Type 2 diabetes mellitus with diabetic polyneuropathy; I48.0 Paroxysmal atrial fibrillation; Z79.4 Long term (current) use of insulin; E78.5 Hyperlipidemia, unspecified; G25.81 Restless legs syndrome; M51.36 Other intervertebral disc degeneration, lumbar region; F41.9 Anxiety disorder, unspecified; F32.9 Major depressive disorder, single episode, unspecified; M25.562 Pain in left knee; M79.672 Pain in left foot; I25.10 Atherosclerotic heart disease of native coronary artery without angina pectoris; G89.29 Other chronic pain; N32.81 Overactive bladder; M48.061 Spinal stenosis, lumbar region without neurogenic claudication; M19.90 Unspecified osteoarthritis, unspecified site; K44.9 Diaphragmatic hernia without obstruction or gangrene; R29.6 Repeated falls; I10 Essential (primary) hypertension; E66.9 Obesity, unspecified; W18.30XA Fall on same level, unspecified, initial encounter; Z79.899 Other long term (current) drug therapy; Z79.82 Long term (current) use of aspirin; Z86.73 Personal history of transient ischemic attack (TIA), and cerebral infarction without residual deficits; Z86.14 Personal history of Methicillin resistant Staphylococcus aureus infection; Z85.05 Personal history of malignant neoplasm of liver; Z92.21 Personal history of antineoplastic chemotherapy; Z96.652 Presence of left artificial knee joint; Z90.710 Acquired absence of both cervix and uterus; Z90.49 Acquired absence of other specified parts of digestive tract; Z98.84 Bariatric surgery status; Z95.5 Presence of coronary angioplasty implant and graft; Z98.890 Other specified postprocedural states; Z96.82 Presence of neurostimulator; Z88.8 Allergy status to other drugs, medicaments and biological substances; Z82.49 Family history of ischemic heart disease and other diseases of the circulatory system
CPT/HCPCS: 36415; 70450; 71046; 73501; 73502; 80048; 80053; 85025; 85610; 85730; 93005; 96372; 96374; 96376; 99285

== ENCOUNTER 2020-11-02 01:17 | Emergency (ER) | payer MEDICARE, OTHER ==
[2020-11-02 01:28] VITALS: RESP 18
[2020-11-02] MEDS ORDERED: HYDROmorphone 1 MG/ML 1 ML SYRINGE IM STA (01:41)
[2020-11-02] MEDS ORDERED: BACITRACIN OINT 1 EACH PACKET TOPICAL ONE (01:42)
--- NOTE | 2020-11-02 01:46 | ED ---
Fall HPI - General Chief Complaint: Fall Stated Complaint: Fall, LT arm injury, leg pain Time Seen by Provider: 11/02/20 01:27 Source: patient, family Mode of arrival: wheelchair - History of Present Illness Initial Comments: 70-year-old female patient presents to the emergency department today for evaluation of skin tear to the left forearm and injury to the right index finger and left shoulder after experiencing a fall. Patient states that she's had multiple hip and knee surgeries which makes it difficult for to ambulate so she does have frequent falls. Patient states she was able to catch herself mostly so she denied her head. She denies a loss of consciousness, neck pain, back pain. She denies numbness or tingling to the extremities. Denies any chest or abdominal pain. Denies shortness of breath. Patient denies any headache, chest pain, shortness of breath, dizziness, weakness, abdominal pain, nausea, vomiting, or difficulties with bowel movements or urination. - Related Data Home Medications Medication Instructions Recorded Confirmed Pantoprazole Sodium 40 mg PO DAILY 08/10/14 05/08/20 Solifenacin Succinate [Vesicare] 10 mg PO 08/10/14 05/08/20 Ondansetron [Zofran] 4 mg PO Q8H PRN 03/26/16 05/08/20 Gabapentin [Neurontin] 600 mg PO 04/02/16 05/08/20 Nystatin [Nystop] 1 applic TOPICAL DAILY PRN 02/14/17 05/08/20 Venlafaxine HCl [Effexor] 75 mg PO QA 05/18/17 05/08/20 Venlafaxine HCl [Effexor] 150 mg PO 05/18/17 05/08/20 bisacodyL [Dulcolax] 5 mg PO QAM 05/18/17 05/08/20 Aspirin [Adult Low Dose Aspirin EC] 81 mg PO DAILY 09/14/18 05/08/20 rOPINIRole HCL [Requip] 0.25 mg PO 06/06/19 05/08/20 Metoprolol Tartrate 25 mg PO BID 10/07/19 05/08/20 INSULIN ASPART (NovoLOG) [NovoLOG 5 unit SQ AC-TID 12/09/19 05/08/20 (formulary)] INSULIN ASPART (NovoLOG) [NovoLOG See Protocol SQ ACHS 12/09/19 05/08/20 (formulary)] Ferrous Gluconate 324 mg PO DAILY 05/08/20 05/08/20 Previous Rx's Medication Instructions Recorded Atorvastatin [Lipitor] 40 mg PO HS #30 tablet 04/06/14 amLODIPine [Norvasc] 5 mg PO DAILY #30 tab 04/06/14 ALPRAZolam [Xanax] 0.5 mg PO BID PRN #6 tab 05/11/20 Enoxaparin Sodium [Lovenox] 30 mg SQ DAILY #28 syringe 05/11/20 Gabapentin [Neurontin] 300 mg PO QAM #3 cap 05/11/20 Insulin Glargine,Hum.rec.anlog 30 unit SQ HS #0 05/11/20 [Lantus Solostar] Melatonin 10 mg PO ONCE PRN tablet 05/11/20 Sennosides-Docusate Sodium 2 each PO HS tab 05/11/20 [Senokot-S] fentaNYL 50MCG/HR PATCH [Duragesic 1 patch TRANSDERM Q72H #1 patch 05/11/20 50MCG/HR] HYDROcodone/APAP 5-325MG [[place] 1 tab PO Q6HR PRN 7 Days #28 tab 05/12/20 5-325] Cephalexin [Keflex] 500 mg PO BID #14 cap 11/02/20 Allergies Allergy/AdvReac Type Severity Reaction Status Date / Time metformin HCl Allergy "kidneys Verified 11/02/20 01:29 [From Glucophage] shut down" Review of Systems ROS Statement: Those systems with pertinent positive or pertinent negative responses have been documented in the HPI. ROS Other: All systems not noted in ROS Statement are negative. Past Medical History Past Medical History: Atrial Fibrillation, Cancer, CVA/TIA, Diabetes Mellitus, Hyperlipidemia, Hypertension Additional Past Medical History / Comment(s): Hepatocellular carcinoma (in remission), had one dose of chemo 2015, TIA X4, hiatal hernia, spinal stenosis, degenerative disc disease involving L3 and L4, diabetic peripheral neuropathy, hyperactive bladder, history of septic left knee joint post arthroplasty. restless leg syndrome. History of Any Multi-Drug Resistant Organisms: MRSA Date of last positivie culture/infection: 2010 MDRO Source:: Left knee Past Surgical History: Adenoidectomy, Bariatric Surgery, Cholecystectomy, Heart Catheterization With Stent, Hernia Repair, Hysterectomy, Joint Replacement, Orthopedic Surgery, Tonsillectomy Additional Past Surgical History / Comment(s): Lap band placed in 2004, prolapsed & removed in 2005, neuro stimulator in back, one stent to LAD, left knee arthroscopic surgery, right total knee arthroplasty, left total knee arthroplasty 10/01/2011, repair of quadriceps tendon 08/21/2011, left knee patellar tendon repair 09/24/2011, removal of the hardware of the left total knee arthroplasty with implantation of the antibiotic spacer October 08 2011, total left knee hardware replacement in May 2012,. trigger finger, left hand in 2003 with subsequent reversal in 2005. Uses a walker or wheelchair Past Anesthesia/Blood Transfusion Reactions: No Reported Reaction Date of Last Stent Placement:: 05/17/2010 Past Psychological History: Anxiety, Depression Smoking Status: Never smoker Past Alcohol Use History: None Reported Past Drug Use History: None Reported - Past Family History Mother Family Medical History: Congestive Heart Failure (CHF) Father Family Medical History: Myocardial Infarction ([place]) Additional Family Medical History / Comment(s): Father at the age of 59 yrs from [place] General Exam Limitations: no limitations General appearance: alert, in no apparent distress, other (Physical well- developed, well-nourished adult female patient in no acute distress. Vital signs upon presentation are temperature 97.8F, pulse 49, respirations 18, blood pressure 177/116, pulse ox 99% on room air.) Head exam: Present: atraumatic, normocephalic, normal inspection Eye exam: Present: normal appearance, PERRL, EOMI. Absent: scleral icterus, conjunctival injection, nystagmus, periorbital swelling ENT exam: Present: normal exam, normal oropharynx, mucous membranes moist Neck exam: Present: normal inspection, full ROM, other (Nontender, no step-off, no deformity to firm midline palpation of the posterior cervical spine. Full range of motion without pain or limitation.). Absent: tenderness, meningismus, lymphadenopathy Respiratory exam: Present: normal lung sounds bilaterally. Absent: respiratory distress, wheezes, rales, rhonchi, stridor Cardiovascular Exam: Present: normal rhythm, bradycardia, normal heart sounds. Absent: systolic murmur, diastolic murmur, rubs, gallop, clicks GI/Abdominal exam: Present: soft, normal bowel sounds. Absent: distended, tenderness, guarding, rebound, rigid Extremities exam: Present: full ROM, normal capillary refill, other (There is large skin tear noted over the left dorsal forearm, no active bleeding. Tiny skin tears noted over the left wrist and the left dorsal hand. There is left shoulder tenderness. No deformity noted. Skin is otherwise pink, warm, dry. Radial pulses 2+.). Absent: normal inspection, tenderness, pedal edema, joint swelling, calf tenderness Back exam: Present: normal inspection, other (Nontender, no step-off, no deformity to firm midline palpation of the thoracic and lumbar vertebrae. Full range of motion without pain or limitation.). Absent: vertebral tenderness Neurological exam: Present: alert, oriented X3, CN II-XII intact Psychiatric exam: Present: normal affect, normal mood Skin exam: Present: warm, dry, intact, normal color. Absent: rash Course Vital Signs 11/02/20 01:23 Temperature 97.8 F Pulse Rate 49 L Respiratory 18 Rate Blood Pressure 177/116 O2 Sat by Pulse 99 Oximetry Medical Decision Making - Medical Decision Making 70-year-old female patient presented to the emergency department today for evaluation after experiencing a fall. She denied any head injury, neck pain, back pain. Physical examination did reveal large skin tears to the left dorsal forearm. She did have pain to the right index finger negative x-ray. Pain to the left shoulder negative x-ray. We did discuss strain of the left shoulder as a cause for her symptoms. I did cleanse the wounds to the left forearm, applied dressing. We did discuss wound care. They're instructed to follow-up with the primary care physician for recheck in 1-2 days. Return parameters were discussed in detail. They verbalize understanding and agree with this plan. - Radiology Data Radiology results: report reviewed, image reviewed Two-view x-ray of the right index finger is obtained. Report was reviewed in its entirety. Impression by Dr. Hubbard shows no acute osseous abnormalities. 2 views of the right shoulder obtained. Report reviewed in its entirety. Impression by Dr. Hubbard shows no acute osseous abnormalities. Degenerative changes. Disposition Clinical Impression: Left shoulder strain, Skin tear of left upper extremity, Contusion of right index finger Disposition: HOME SELF-CARE Condition: Good Instructions (If sedation given, give patient instructions): Contusion in Ad ults (ED), Shoulder Sprain (ED), Skin Tear (ED) Additional Instructions: Keep wounds clean and dry. Change dressings once daily. Follow up with the primary care physician for recheck in 1-2 days. Return to the emergency department for any new, worsening, or concerning symptoms. Prescriptions: Cephalexin [Keflex] 500 mg PO BID #14 cap Is patient prescribed a controlled substance at d/c from ED?: No Referrals: Amanuel Wilkinson MD [Primary Care Provider] - 1-2 days Time of Disposition: 02:45
--- NOTE | 2020-11-02 02:15 | XR ---
EXAM: XR Right Fingers, 2 or More Views CLINICAL HISTORY: ITS.REASON XR Reason: Fall injury TECHNIQUE: Frontal, lateral and oblique views of the second finger of the right hand. COMPARISON: No relevant prior studies available. FINDINGS: Bones/joints: No acute fracture. No dislocation. Soft tissues: Heterotopic ossification/calcification at the metacarpal phalangeal joint. No radiopaque foreign body. IMPRESSION: No acute osseous abnormalities.
--- NOTE | 2020-11-02 02:16 | XR ---
EXAM: XR Left Shoulder Complete, 2 or More Views CLINICAL HISTORY: ITS.REASON XR Reason: Fall injury TECHNIQUE: Two or more views of the left shoulder. COMPARISON: No relevant prior studies available. FINDINGS: Bones/joints: No acute fracture. No dislocation. Severe AC joint osteoarthrosis. Moderate shoulder joint osteoarthrosis. Decreased acromiohumeral distance consistent with rotator cuff pathology. Soft tissues: Unremarkable. IMPRESSION: No acute osseous abnormalities. Degenerative changes.
[2020-11-02 03:13] VITALS: BP 140/78; PULSE 68; TEMP 98.4
== END 2020-11-02 03:13 | disposition home or self-care (01) ==
LOC: EC 01:17
DX: S60.021A Contusion of right index finger without damage to nail, initial encounter (principal); S46.912A Strain of unspecified muscle, fascia and tendon at shoulder and upper arm level, left arm, initial encounter; S51.812A Laceration without foreign body of left forearm, initial encounter; R00.1 Bradycardia, unspecified; F41.9 Anxiety disorder, unspecified; F32.9 Major depressive disorder, single episode, unspecified; G25.81 Restless legs syndrome; E78.5 Hyperlipidemia, unspecified; I10 Essential (primary) hypertension; E11.40 Type 2 diabetes mellitus with diabetic neuropathy, unspecified; Z79.4 Long term (current) use of insulin; Z79.82 Long term (current) use of aspirin; Z79.899 Other long term (current) drug therapy; Z88.8 Allergy status to other drugs, medicaments and biological substances; Z86.73 Personal history of transient ischemic attack (TIA), and cerebral infarction without residual deficits; Z91.81 History of falling; Z92.21 Personal history of antineoplastic chemotherapy; Z86.14 Personal history of Methicillin resistant Staphylococcus aureus infection; Z90.49 Acquired absence of other specified parts of digestive tract; Z90.89 Acquired absence of other organs; Z95.5 Presence of coronary angioplasty implant and graft; Z90.710 Acquired absence of both cervix and uterus; Z96.653 Presence of artificial knee joint, bilateral; Z85.05 Personal history of malignant neoplasm of liver; W18.30XA Fall on same level, unspecified, initial encounter; Y92.009 Unspecified place in unspecified non-institutional (private) residence as the place of occurrence of the external cause
CPT/HCPCS: 99283 ×2; 96372 ×2; 73030; 73140; J1170

== ENCOUNTER 2020-12-04 15:29 | Inpatient (IN) | payer MEDICARE, OTHER ==
[2020-12-04] MEDS ORDERED: SODIUM CHLORIDE 0.9% 1,000 ML IV STA (16:07)
--- NOTE | 2020-12-04 16:17 | ED ---
General Adult HPI - General Chief complaint: Altered Mental Status Stated complaint: Confusion Time Seen by Provider: 12/04/20 15:41 Source: patient, family, RN notes reviewed Mode of arrival: wheelchair Limitations: no limitations - History of Present Illness Initial comments: Patient is a pleasant 70-year-old female presenting to the emergency department for altered mental status and frequent falls. Symptoms have progressed over this past week. Patient has fallen approximately 7 times, twice today. Patient did strike her head one time today however denies any headache. Confusion seems to be waxing and waning. Patient is becoming forgetful and having hallucinations. Patient also has had episodes of syncope. Patient believes she is going to [place] after this ER visit however daughter says is not true. - Related Data Home Medications Medication Instructions Recorded Confirmed Pantoprazole Sodium 40 mg PO DAILY 08/10/14 12/04/20 Solifenacin Succinate [Vesicare] 10 mg PO HS 08/10/14 12/04/20 Ondansetron [Zofran] 4 mg PO Q8H PRN 03/26/16 12/04/20 Gabapentin [Neurontin] 600 mg PO HS 04/02/16 12/04/20 Venlafaxine HCl [Effexor] 75 mg PO QAM 05/18/17 12/04/20 Venlafaxine HCl [Effexor] 150 mg PO HS 05/18/17 12/04/20 bisacodyL [Dulcolax] 5 mg PO QAM 05/18/17 12/04/20 Aspirin [Adult Low Dose Aspirin EC] 81 mg PO DAILY 09/14/18 12/04/20 rOPINIRole HCL [Requip] 0.25 mg PO HS PRN 06/06/19 12/04/20 Metoprolol Tartrate 25 mg PO BID 10/07/19 12/04/20 INSULIN ASPART (NovoLOG) [NovoLOG 5 unit SQ AC-TID 12/09/19 12/04/20 (formulary)] INSULIN ASPART (NovoLOG) [NovoLOG See Protocol SQ AC-TID 12/09/19 12/04/20 (formulary)] Ferrous Gluconate 324 mg PO DAILY 05/08/20 12/04/20 Atorvastatin [Lipitor] 40 mg PO DAILY 12/04/20 12/04/20 Calcium Carbonate [Calcium] 600 mg PO DAILY 12/04/20 12/04/20 Ergocalciferol (Vitamin D2) 50 mcg PO DAILY 12/04/20 12/04/20 [Vitamin D2 (2000 Iu)] Insulin Glargine,Hum.rec.anlog 16 unit SQ DAILY 12/04/20 12/04/20 [Lantus Solostar] Insulin Glargine,Hum.rec.anlog 20 unit SQ HS 12/04/20 12/04/20 [Lantus Solostar] Nitrofurantoin Monohyd/M-Cryst 100 mg PO BID 12/04/20 12/04/20 [Macrobid] Nystatin 100,000 Unit/gm Powd 1 applic TOPICAL BID PRN 12/04/20 12/04/20 [Mycostatin Powder] Previous Rx's Medication Instructions Recorded amLODIPine [Norvasc] 5 mg PO DAILY #30 tab 04/06/14 ALPRAZolam [Xanax] 0.5 mg PO BID PRN #6 tab 05/11/20 Gabapentin [Neurontin] 300 mg PO QAM #3 cap 05/11/20 fentaNYL 50MCG/HR PATCH [Duragesic 1 patch TRANSDERM Q72H #1 patch 05/11/20 50MCG/HR] Allergies Allergy/AdvReac Type Severity Reaction Status Date / Time metformin HCl Allergy "kidneys Verified 12/04/20 16:45 [From Glucophage] shut down" Review of Systems ROS Statement: Those systems with pertinent positive or pertinent negative responses have been documented in the HPI. ROS Other: All systems not noted in ROS Statement are negative. Constitutional: Denies: fever, chills Eyes: Denies: eye pain ENT: Denies: ear pain Respiratory: Denies: cough, dyspnea Cardiovascular: Denies: chest pain Endocrine: Denies: fatigue Gastrointestinal: Denies: abdominal pain Genitourinary: Denies: dysuria Musculoskeletal: Denies: back pain Skin: Denies: rash Neurological: Reports: as per HPI, confusion. Denies: headache Past Medical History Past Medical History: Atrial Fibrillation, Cancer, CVA/TIA, Diabetes Mellitus, Hyperlipidemia, Hypertension Additional Past Medical History / Comment(s): Hepatocellular carcinoma (in remission), had one dose of chemo 2015, TIA X4, hiatal hernia, spinal stenosis, degenerative disc disease involving L3 and L4, diabetic peripheral neuropathy, hyperactive bladder, history of septic left knee joint post arthroplasty. restless leg syndrome. History of Any Multi-Drug Resistant Organisms: MRSA Date of last positivie culture/infection: 2010 MDRO Source:: Left knee Past Surgical History: Adenoidectomy, Bariatric Surgery, Cholecystectomy, Heart Catheterization With Stent, Hernia Repair, Hysterectomy, Joint Replacement, Orthopedic Surgery, Tonsillectomy Additional Past Surgical History / Comment(s): Lap band placed in 2003, prolapsed & removed in 2005, neuro stimulator in back, one stent to LAD, left knee arthroscopic surgery, right total knee arthroplasty, left total knee arthroplasty 10/01/2011, repair of quadriceps tendon 08/21/2011, left knee patellar tendon repair 09/24/2011, removal of the hardware of the left total knee arthroplasty with implantation of the antibiotic spacer October 08 2011, total left knee hardware replacement in May 2012,. trigger finger, left hand in 2003 with subsequent reversal in 2005. Uses a walker or wheelchair Past Anesthesia/Blood Transfusion Reactions: No Reported Reaction Date of Last Stent Placement:: 05/17/2010 Past Psychological History: Anxiety, Depression Smoking Status: Never smoker Past Alcohol Use History: None Reported Past Drug Use History: None Reported - Past Family History Mother Family Medical History: Congestive Heart Failure (CHF) Father Family Medical History: Myocardial Infarction ([place]) Additional Family Medical History / Comment(s): Father at the age of 59 yrs from [place] General Exam Limitations: no limitations General appearance: alert, in no apparent distress Head exam: Present: atraumatic, normocephalic Eye exam: Present: normal appearance, PERRL, EOMI. Absent: nystagmus ENT exam: Present: mucous membranes dry Neck exam: Present: normal inspection Respiratory exam: Present: normal lung sounds bilaterally Cardiovascular Exam: Present: regular rate, normal rhythm GI/Abdominal exam: Present: soft. Absent: tenderness Extremities exam: Present: normal inspection. Absent: pedal edema, calf tenderness Neurological exam: Present: alert, oriented X3, CN II-XII intact. Absent: motor sensory deficit Expanded Neurological exam: Present: protecting the airway Patient oriented to: Present: person, place, time Speech: Present: fluid speech Cranial nerves: EOM's Intact: Normal Motor strength exam: RUE: 5, LUE: 5, RLE: 5, LLE: 5 Eye Response: (4) open spontaneously Motor Response: (6) obeys commands Verbal Response: (5) oriented Psychiatric exam: Present: normal affect, normal mood Skin exam: Present: normal color Course Vital Signs 12/04/20 12/04/20 12/04/20 15:30 17:30 18:17 Temperature 97.6 F Pulse Rate 56 L 48 L 49 L Respiratory 18 16 16 Rate Blood Pressure 105/67 154/76 146/73 O2 Sat by Pulse 100 98 100 Oximetry EKG Findings - EKG Comments: EKG Findings:: Sinus bradycardia with a rate of 49. SC 190. QRS 86. QT 498. QTC 449. Normal axis. Normal QRS. No acute ST change. Medical Decision Making - Medical Decision Making Patient reevaluated and resting comfortably in bed. Patient family updated on results and plan. Case was discussed in detail with Dr. Ernst, who will admit covering for Dr. Smith - Lab Data Result diagrams: 12/04/20 16:44 12/04/20 16:44 Lab Results 12/04/20 12/04/20 12/04/20 Range/Units 16:08 16:44 16:44 WBC 15.6 H (3.8-10.6) k/uL RBC 4.79 (3.80-5.40) m/uL Hgb 13.3 (11.4-16.0) gm/dL Hct 41.0 (34.0-46.0) % MCV 85.6 (80.0-100.0) fL MCH 27.7 (25.0-35.0) pg MCHC 32.4 (31.0-37.0) g/dL RDW 13.6 (11.5-15.5) % Plt Count 298 (150-450) k/uL MPV 7.9 Neutrophils % 71 % Lymphocytes % 23 % Monocytes % 3 % Eosinophils % 2 % Basophils % 1 % Neutrophils # 11.1 H (1.3-7.7) k/uL Lymphocytes # 3.5 (1.0-4.8) k/uL Monocytes # 0.5 (0-1.0) k/uL Eosinophils # 0.3 (0-0.7) k/uL Basophils # 0.1 (0-0.2) k/uL PT 9.7 (9.0-12.0) sec INR 0.9 (<1.2) Sodium (137-145) mmol/L Potassium (3.5-5.1) mmol/L Chloride (98-107) mmol/L Carbon Dioxide (22-30) mmol/L Anion Gap mmol/L BUN (7-17) mg/dL Creatinine (0.52-1.04) mg/dL Est GFR (CKD-EPI)AfAm (>60 ml/min/1.73 sqM) Est GFR (CKD-EPI)NonAf (>60 ml/min/1.73 sqM) Glucose (74-99) mg/dL Plasma Lactic Acid Fabio (0.7-2.0) mmol/L Calcium (8.4-10.2) mg/dL Magnesium (1.6-2.3) mg/dL Total Bilirubin (0.2-1.3) mg/dL AST (14-36) U/L ALT (4-34) U/L Alkaline Phosphatase (38-126) U/L Creatine Kinase (30-135) U/L Troponin I (0.000-0.034) ng/mL Total Protein (6.3-8.2) g/dL Albumin (3.5-5.0) g/dL Urine Color Light Yellow Urine Appearance Cloudy H (Clear) Urine pH 6.5 (5.0-8.0) Ur Specific [place] 1.007 (1.001-1.035) Urine Protein Trace H (Negative) Urine Glucose (UA) Trace H (Negative) Urine Ketones Negative (Negative) Urine Blood Negative (Negative) Urine Nitrite Negative (Negative) Urine Bilirubin Negative (Negative) Urine Urobilinogen <2.0 (<2.0) mg/dL Ur Leukocyte Esterase Large H (Negative) Urine RBC <1 (0-5) /hpf Urine WBC 5 (0-5) /hpf Urine Bacteria Few H (None) /hpf Hyaline Casts 1 (0-2) /lpf Urine Mucus Rare H (None) /hpf Urine Yeast (Budding) Few H (None) /hpf 12/04/20 12/04/20 12/04/20 Range/Units 16:44 16:44 16:44 WBC (3.8-10.6) k/uL RBC (3.80-5.40) m/uL Hgb (11.4-16.0) gm/dL Hct (34.0-46.0) % MCV (80.0-100.0) fL MCH (25.0-35.0) pg MCHC (31.0-37.0) g/dL RDW (11.5-15.5) % Plt Count (150-450) k/uL MPV Neutrophils % % Lymphocytes % % Monocytes % % Eosinophils % % Basophils % % Neutrophils # (1.3-7.7) k/uL Lymphocytes # (1.0-4.8) k/uL Monocytes # (0-1.0) k/uL Eosinophils # (0-0.7) k/uL Basophils # (0-0.2) k/uL PT (9.0-12.0) sec INR (<1.2) Sodium 138 (137-145) mmol/L Potassium 5.2 H (3.5-5.1) mmol/L Chloride 101 (98-107) mmol/L Carbon Dioxide 31 H (22-30) mmol/L Anion Gap 6 mmol/L BUN 20 H (7-17) mg/dL Creatinine 1.24 H (0.52-1.04) mg/dL Est GFR (CKD-EPI)AfAm 50 (>60 ml/min/1.73 sqM) Est GFR (CKD-EPI)NonAf 44 (>60 ml/min/1.73 sqM) Glucose 273 H (74-99) mg/dL Plasma Lactic Acid Fabio 1.6 (0.7-2.0) mmol/L Calcium 9.2 (8.4-10.2) mg/dL Magnesium 2.0 (1.6-2.3) mg/dL Total Bilirubin 0.5 (0.2-1.3) mg/dL AST 47 H (14-36) U/L ALT 32 (4-34) U/L Alkaline Phosphatase 189 H (38-126) U/L Creatine Kinase 57 (30-135) U/L Troponin I <0.012 (0.000-0.034) ng/mL Total Protein 6.6 (6.3-8.2) g/dL Albumin 3.5 (3.5-5.0) g/dL Urine Color Urine Appearance (Clear) Urine pH (5.0-8.0) Ur Specific [place] (1.001-1.035) Urine Protein (Negative) Urine Glucose (UA) (Negative) Urine Ketones (Negative) Urine Blood (Negative) Urine Nitrite (Negative) Urine Bilirubin (Negative) Urine Urobilinogen (<2.0) mg/dL Ur Leukocyte Esterase (Negative) Urine RBC (0-5) /hpf Urine WBC (0-5) /hpf Urine Bacteria (None) /hpf Hyaline Casts (0-2) /lpf Urine Mucus (None) /hpf Urine Yeast (Budding) (None) /hpf - Radiology Data Radiology results: report reviewed (Computed tomography scan of the brain shows atrophy. No acute process.), image reviewed (Two-view chest x-ray shows no acute process) Disposition Clinical Impression: Altered mental status, Syncope Disposition: ADMITTED IP TO THIS HOSP Is patient prescribed a controlled substance at d/c from ED?: No Referrals: Amanuel Wilkinson MD [Primary Care Provider] - 1-2 days Decision Time: 18:38
[2020-12-04 16:25] LABS: Appearance,Urine Cloudy (Clear); Bacteria,Urine Few /hpf; Bilirubin,Urine Negative (Negative); Blood,Urine Negative (Negative); Budding Yeast,Urine Few /hpf; Color,Urine Light Yellow; Glucose,Urine (UA) Trace (Negative); Hyaline Casts,Urine 1 /lpf (0-2); Ketones,Urine Negative (Negative); Leukocyte Esterase,Urine Large (Negative); Mucus,Urine Rare /hpf; Nitrite,Urine Negative (Negative); PH, Urine 6.5 (5.0-8.0); Protein,Urine Trace (Negative); RBC,Urine <1 /hpf (0-5); Specific Gravity,Urine 1.007 (1.001-1.035); Urobilinogen,Urine <2.0 mg/dL (<2.0); WBC,Urine 5 /hpf (0-5)
[2020-12-04 17:01] LABS: Basophils # (A) 0.1 k/uL (0-0.2); Basophils % (A) 1 %; Eosinophils # (A) 0.3 k/uL (0-0.7); Eosinophils % (A) 2 %; HGB 13.3 gm/dL (11.4-16.0); Lymphocytes # (A) 3.5 k/uL (1.0-4.8); Lymphocytes % (A) 23 %; MCH 27.7 pg (25.0-35.0); MCHC 32.4 g/dL (31.0-37.0); MCV 85.6 fL (80.0-100.0); Mean Platelet Volume 7.9; Monocytes # (A) 0.5 k/uL (0-1.0); Monocytes % (A) 3 %; Neutrophils # (A) 11.1 k/uL (1.3-7.7); Neutrophils % (A) 71 %; Platelet Count 298 k/uL (150-450); RBC 4.79 m/uL (3.80-5.40); RDW 13.6 % (11.5-15.5); WBC 15.6 k/uL (3.8-10.6)
[2020-12-04 17:10] LABS: Albumin 3.5 g/dL (3.5-5.0); Calcium 9.2 mg/dL (8.4-10.2); Potassium 5.2 mmol/L (3.5-5.1); Total Bilirubin 0.5 mg/dL (0.2-1.3); Total Protein 6.6 g/dL (6.3-8.2)
[2020-12-04 17:11] LABS: INR 0.9 (<1.2); Prothrombin Time 9.7 sec (9.0-12.0)
--- NOTE | 2020-12-04 17:31 | XR ---
EXAMINATION TYPE: XR chest 2V DATE OF EXAM: 12/04/2020 COMPARISON: NONE HISTORY: Preop TECHNIQUE: 2 views FINDINGS: There is no heart failure nor confluent pneumonic infiltrate. Costophrenic angles are clear. There ar e no hilar masses. There are chest leads. There is some arthritic change in the shoulder joints. IMPRESSION: No active cardiopulmonary disease.
--- NOTE | 2020-12-04 17:34 | CT ---
EXAMINATION TYPE: CT brain wo con DATE OF EXAM: 12/04/2020 COMPARISON: 05/08/2020 HISTORY: altered mental status CT DLP: 1098.4 mGycm Automated exposure control for dose reduction was used. There is cerebral cortical atrophy. There is no mass effect nor midline shift. There is no evidence o f intracranial hemorrhage. The calvarium is intact. There is patchy hypodensity in the periventricula r white matter. There is some debris in the left external auditory canal. IMPRESSION: Cerebral atrophy and chronic small vessel ischemia. No acute intracranial abnormality. No significant change.
[2020-12-04] MEDS ORDERED: NALOXONE 0.4 MG/ML 1 ML VIAL IV PRN (18:38)
[2020-12-04] MEDS ORDERED: SODIUM CHLORIDE 0.9% 1,000 ML IV SCH (18:45)
[2020-12-04] MEDS ORDERED: ALPRAZolam 0.5 MG TAB PO PRN (20:44)
[2020-12-04] MEDS ORDERED: HYDROmorphone 1 MG/ML 1 ML SYRINGE IVP STA (20:47)
[2020-12-04] MEDS ORDERED: HYDROmorphone 0.5 MG/0.5 ML SYRINGE IVP STA ×2 (20:47→21:03)
[2020-12-04] MEDS ORDERED: METOPROLOL TARTRATE 25 MG TAB PO SCH (21:00)
[2020-12-04] MEDS ORDERED: GABAPENTIN 300 MG CAP PO SCH (21:00)
[2020-12-04 21:48] LABS: Glucose,Whole Blood 223 mg/dL (75-99)
[2020-12-04] MEDS: QUEtiapine 50 MG TAB PO SCH (23:07)
[2020-12-04] MEDS: NITROFURANTOIN MONOHYD/M-CRYST 100 MG CAP PO SCH (23:08)
[2020-12-04] MEDS: INSULIN ASPART (NovoLOG) 100 UNIT/ML VIAL SQ SCH (23:08)
[2020-12-04] MEDS: VENLAFAXINE HCL 75 MG TAB PO SCH (23:08)
[2020-12-04] MEDS: INSULIN DETEMIR (LEVEMIR) 100 UNIT/ML SYR SQ SCH (23:09)
[2020-12-04] MEDS: SODIUM CHLORIDE 0.9% 1,000 ML IV SCH (23:10)
--- NOTE | 2020-12-04 23:29 | P.HPIM ---
History of Present Illness H&P Date: 12/04/20 Chief Complaint: Falls Consultation: This is a 70-year-old patient of visiting physician Dr. Amanuel Smith. 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 Patient is to the Dr. Joaquin. Daughter brought the patient for multiple issues. Patient has a bedside commode. Does not walk any. Last 3 days has fallen down about 7 times. Noted to have increasing confusion. Patient's oral intake is variable. Patient's chronic pain all over. Also, no stability. Has been becoming more forgetful. The patient is able to answer simple questions and recognize her daughter etc. No fever no chills. She did have a sandwich this evening. Review of systems: GEN.: Tired EYES: None HEENT: None NECK: None RESPIRATORY: None CARDIOVASCULAR: None GASTROINTESTINAL: None GENITOURINARY: None MUSCULOSKELETAL: Multiple joint pains LYMPHATICS: None HEMATOLOGICAL: None PSYCHIATRY: Forgetful NEUROLOGICAL: None Past medical history to include: Atrial fibrillation, diabetes mellitus, hypertension, hyperlipidemia, hepato- cellular carcinoma in remission after 1 dose of chemotherapy, spinal stenosis, DJD including lumbar spine, diabetic peripheral neuropathy, hyperactive bladder, septic left knee joint, restless leg syndrome, coronary artery disease with stent Social history: This with Dr. Joaquin . Mostly uses a wheelchair. Patient's daughter is to [facility]. No history of smoking or alcohol. Physical examination: VITAL SIGNS: 97.6, 56, 18, 105/67, 100- room air GENERAL: BMI 32.6, laying in bed awake. EYES: Pupils equal. Conjunctiva normal. HEENT: External appearance of nose and ears normal, oral cavity grossly normal. NECK: JVD not raised; masses not palpable. HEART: First and second heart sounds are normal; no edema. LUNGS: Respiratory rate normal; distant breath sounds. ABDOMEN: Soft, nontender, liver spleen not palpable, no masses palpable. PSYCH: Able to answer simple questions. NEUROLOGICAL: Cranial nerves grossly intact; no facial asymmetry, power and sensation grossly intact. MUSCULOSKELETAL: evidence of OA in multiple joints LYMPHATICS: No lymph nodes palpable in the axilla and neck INVESTIGATIONS, reviewed in the clinical context: White count 15.6 hemoglobin 13.3 platelets 298 potassium 5.2 bun 20 creatinine 1.24 UA positive for leukoesterase, bacteria Previous testing: Potassium 4.6 bun 17 creatinine 0.69 on May 2020 Assessment: -Acute delirium from contribution of patient being on Neurontin, fentanyl the setting of acute kidney injury -Paroxysmal atrial fibrillation currently in sinus rhythm -Multiple falls likely from delirium/metabolic encephalopathy -Acute kidney injury likely prerenal from decreased oral intake -Coronary artery disease with a history of stent -Diabetes mellitus type 2 on oral hypoglycemic -Essential hypertension -Hyperlipidemia -Hiatal hernia -DJD -Diabetic peripheral neuropathy -Chronic gait dysfunction uses a wheelchair at baseline -Restless leg syndrome -Obesity BMI 32.6 -Acute UTI with cystitis Plan: Will change patient Levemir to 20 units at night. Discontinue the morning dose. Accu-Cheks before. IV fluids. Repeat electrolytes in the morning. Given the bradycardia will DC the Lopressor and start the patient on Norvasc 5 mg twice a day. Cut back the dose of [id number] g an hour. Also cut back the dose of Neurontin the setting of acute kidney injury. Patient has been sleeping poorly at home. Add Seroquel at night. Sleep hygiene to be introduced, discussed with the daughter and nurse at the bedside. Past Medical History Past Medical History: Atrial Fibrillation, Cancer, CVA/TIA, Diabetes Mellitus, Hyperlipidemia, Hypertension Additional Past Medical History / Comment(s): Hepatocellular carcinoma (in remission), had one dose of chemo 2015, TIA X4, hiatal hernia, spinal stenosis, degenerative disc disease involving L3 and L4, diabetic peripheral neuropathy, hyperactive bladder, history of septic left knee joint post arthroplasty. restless leg syndrome. History of Any Multi-Drug Resistant Organisms: MRSA Date of last positivie culture/infection: 2010 MDRO Source:: Left knee Past Surgical History: Adenoidectomy, Bariatric Surgery, Cholecystectomy, Heart Catheterization With Stent, Hernia Repair, Hysterectomy, Joint Replacement, Orthopedic Surgery, Tonsillectomy Additional Past Surgical History / Comment(s): Lap band placed in 2003, prolapsed & removed in 2005, neuro stimulator in back, one stent to LAD, left knee arthroscopic surgery, right total knee arthroplasty, left total knee arthroplasty 10/01/2011, repair of quadriceps tendon 08/21/2011, left knee patellar tendon repair 09/24/2011, removal of the hardware of the left total knee arthroplasty with implantation of the antibiotic spacer October 08 2011, total left knee hardware replacement in May 2012,. trigger finger, left hand in 2003 with subsequent reversal in 2005. Uses a walker or wheelchair Past Anesthesia/Blood Transfusion Reactions: No Reported Reaction Date of Last Stent Placement:: 05/17/2010 Past Psychological History: Anxiety, Depression Additional Psychological History / Comment(s): Pt resides with her Sonam cruz and her son in law. She ambulates rarely with a walker, mostly is in a wheelchair. Pt feeds herself. Sonam Cruz is pt's DPOA and caregiver. No home care used. Smoking Status: Never smoker Past Alcohol Use History: None Reported Past Drug Use History: None Reported - Past Family History Mother Family Medical History: Congestive Heart Failure (CHF) Father Family Medical History: Myocardial Infarction ([place]) Additional Family Medical History / Comment(s): Father at the age of 59 yrs from [place] Medications and Allergies Home Medications Medication Instructions Recorded Confirmed Type amLODIPine [Norvasc] 5 mg PO DAILY #30 tab 04/06/14 12/04/20 Rx Pantoprazole Sodium 40 mg PO DAILY 08/10/14 12/04/20 History Solifenacin Succinate [Vesicare] 10 mg PO HS 08/10/14 12/04/20 History Ondansetron [Zofran] 4 mg PO Q8H PRN 03/26/16 12/04/20 History Gabapentin [Neurontin] 600 mg PO HS 04/02/16 12/04/20 History Venlafaxine HCl [Effexor] 75 mg PO QAM 05/18/17 12/04/20 History Venlafaxine HCl [Effexor] 150 mg PO HS 05/18/17 12/04/20 History bisacodyL [Dulcolax] 5 mg PO QAM 05/18/17 12/04/20 History Aspirin [Adult Low Dose Aspirin EC] 81 mg PO DAILY 09/14/18 12/04/20 History rOPINIRole HCL [Requip] 0.25 mg PO HS PRN 06/06/19 12/04/20 History Metoprolol Tartrate 25 mg PO BID 10/07/19 12/04/20 History INSULIN ASPART (NovoLOG) [NovoLOG 5 unit SQ AC-TID 12/09/19 12/04/20 History (formulary)] INSULIN ASPART (NovoLOG) [NovoLOG See Protocol SQ AC-TID 12/09/19 12/04/20 History (formulary)] Ferrous Gluconate 324 mg PO DAILY 05/08/20 12/04/20 History ALPRAZolam [Xanax] 0.5 mg PO BID PRN #6 tab 05/11/20 12/04/20 Rx Gabapentin [Neurontin] 300 mg PO QAM #3 cap 05/11/20 12/04/20 Rx fentaNYL 50MCG/HR PATCH [Duragesic 1 patch TRANSDERM Q72H #1 patch 05/11/20 12/04/20 Rx 50MCG/HR] Atorvastatin [Lipitor] 40 mg PO DAILY 12/04/20 12/04/20 History Calcium Carbonate [Calcium] 600 mg PO DAILY 12/04/20 12/04/20 History Ergocalciferol (Vitamin D2) 50 mcg PO DAILY 12/04/20 12/04/20 History [Vitamin D2 (2000 Iu)] Insulin Glargine,Hum.rec.anlog 16 unit SQ DAILY 12/04/20 12/04/20 History [Lantus Solostar] Insulin Glargine,Hum.rec.anlog 20 unit SQ HS 12/04/20 12/04/20 History [Lantus Solostar] Nitrofurantoin Monohyd/M-Cryst 100 mg PO BID 12/04/20 12/04/20 History [Macrobid] Nystatin 100,000 Unit/gm Powd 1 applic TOPICAL BID PRN 12/04/20 12/04/20 History [Mycostatin Powder] Allergies Allergy/AdvReac Type Severity Reaction Status Date / Time metformin HCl Allergy "kidneys Verified 12/04/20 16:45 [From Glucophage] shut down" Physical Exam Vitals: Vital Signs Temp Pulse Pulse Resp BP BP Pulse Ox 12/04/20 21:43 97.8 F 57 L 16 121/73 96 12/04/20 21:20 97.8 F 57 L 16 121/73 96 12/04/20 21:11 60 18 145/79 98 12/04/20 18:58 49 L 16 137/83 96 12/04/20 18:17 49 L 16 146/73 100 12/04/20 17:30 48 L 16 154/76 98 12/04/20 15:30 97.6 F 56 L 18 105/67 100 Intake and Output 12/04/20 12/04/20 12/05/20 14:59 22:59 06:59 Output Total 260 Balance -260 Output: Urine 260 Other: # Voids 1 Weight 86.183 kg Results CBC & Chem 7: 12/04/20 16:44 12/04/20 16:44 Labs: Abnormal Lab Results - Last 24 Hours (Table) 12/04/20 12/04/20 12/04/20 Range/Units 16:08 16:44 16:44 WBC 15.6 H (3.8-10.6) k/uL Neutrophils # 11.1 H (1.3-7.7) k/uL Potassium 5.2 H (3.5-5.1) mmol/L Carbon Dioxide 31 H (22-30) mmol/L BUN 20 H (7-17) mg/dL Creatinine 1.24 H (0.52-1.04) mg/dL Glucose 273 H (74-99) mg/dL POC Glucose (mg/dL) (75-99) mg/dL AST 47 H (14-36) U/L Alkaline Phosphatase 189 H (38-126) U/L Urine Appearance Cloudy H (Clear) Urine Protein Trace H (Negative) Urine Glucose (UA) Trace H (Negative) Ur Leukocyte Esterase Large H (Negative) Urine Bacteria Few H (None) /hpf Urine Mucus Rare H (None) /hpf Urine Yeast (Budding) Few H (None) /hpf 12/04/20 Range/Units 21:46 WBC (3.8-10.6) k/uL Neutrophils # (1.3-7.7) k/uL Potassium (3.5-5.1) mmol/L Carbon Dioxide (22-30) mmol/L BUN (7-17) mg/dL Creatinine (0.52-1.04) mg/dL Glucose (74-99) mg/dL POC Glucose (mg/dL) 223 H (75-99) mg/dL AST (14-36) U/L Alkaline Phosphatase (38-126) U/L Urine Appearance (Clear) Urine Protein (Negative) Urine Glucose (UA) (Negative) Ur Leukocyte Esterase (Negative) Urine Bacteria (None) /hpf Urine Mucus (None) /hpf Urine Yeast (Budding) (None) /hpf Thrombosis Risk Factor Assmnt - Choose All That Apply Each Factor Represents 1 point: Obesity (BMI >25) Other Risk Factors: Yes Each Risk Factor Represents 2 Points: Age 61-74 years Thrombosis Risk Factor Assessment Total Risk Factor Score: 3 Thrombosis Risk Factor Assessment Level: Moderate Risk
[2020-12-05] MEDS ORDERED: INSULIN DETEMIR (LEVEMIR) 100 UNIT/ML SYR SQ SCH (07:00)
[2020-12-05 07:15] LABS: Glucose,Whole Blood 110 mg/dL (75-99)
[2020-12-05] MEDS: INSULIN ASPART (NovoLOG) 100 UNIT/ML VIAL SQ SCH ×7 (07:35→20:53)
[2020-12-05] MEDS: PANTOPRAZOLE 40 MG TABLET PO SCH (07:36)
[2020-12-05 08:01] LABS: Calcium 8.7 mg/dL (8.4-10.2)
[2020-12-05] MEDS ORDERED: GABAPENTIN 300 MG CAP PO SCH (09:00)
[2020-12-05] MEDS ORDERED: amLODIPine 5 MG TAB PO SCH (09:00)
[2020-12-05] MEDS ORDERED: ASPIRIN 81 MG PO SCH (09:00)
[2020-12-05] MEDS: ENOXAPARIN 40 MG/0.4 ML SYRINGE SQ SCH (09:50)
[2020-12-05] MEDS: NITROFURANTOIN MONOHYD/M-CRYST 100 MG CAP PO SCH ×2 (09:50→20:55)
[2020-12-05] MEDS: amLODIPine 5 MG TAB PO SCH ×2 (09:50→20:54)
[2020-12-05] MEDS: VENLAFAXINE HCL 75 MG TAB PO SCH ×2 (09:50→20:54)
--- NOTE | 2020-12-05 09:50 | P.CRDCN ---
History of Present Illness History of present illness: HISTORY OF PRESENTING ILLNESS This is a pleasant 70-year-old female past medical history significant for paroxysmal atrial fibrillation not on roasterman anticoagulation, diabetes m ellitus, hypertension, dyslipidemia, coronary artery disease s/p PCI LAD 2009 and hepatocellular carcinoma currently in remission last dose of chemotherapy 2014. She does not follow regularly in the office with a boat motor mechanic. We have been asked to see in consultation for syncope. She presented to the ER with complaints of frequent falls over the past 1 week with increased weakness. She states she loses her balance and just falls. She denies feeling dizzy or lightheaded. She denies loss of consciousness. Most recent echocardiogram obtained 2017 revealed preserved LV systolic function with EF 50-55% with moderate LVH. DIAGNOSTICS EKG reveals sinus bradycardia, heart rate 49 with T-wave inversions anteriorly. Telemetry tracings indicate sinus rhythm. Chest xray negative for an acute cardiopulmonary process. CT of the brain reveals cerebral atrophy and chronic small vessel ischemia with no acute intracranial abnormality noted.. Laboratory reviewed, WBC 15.6, hemoglobin 13.3, platelets 298, sodium 138, potassium 4.0, creatinine 1.17, cardiac enzymes negative 3 and magnesium 2.0. Current cardiac medications include metoprolol 25 mg twice a day, amlodipine 5 mg BID, atorvastatin 40 mg daily and aspirin 81 mg daily. REVIEW OF SYSTEMS At the time of my exam: CONSTITUTIONAL: Complains of generalized weakness. Denies fever or chills. CARDIOVASCULAR: Denies chest pain, shortness of breath, orthopnea, PND or palpitations. RESPIRATORY: Denies cough. GASTROINTESTINAL: Denies abdominal pain, diarrhea, constipation, nausea or vomiting. MUSCULOSKELETAL: Denies myalgias. NEUROLOGIC: Denies numbness, tingling, headacbe or weakness. ENDOCRINE: Denies fatigue, weight change, polydipsia or polyurina. GENITOURINARY: Denies burning, hematuria or urgency with micturation. HEMATOLOGIC: Denies history of anemia or bleeding. PHYSICAL EXAMINATION Blood pressure 121/73 heart rate 57 afebrile and maintaining oxygen saturation on room air. CONSTITUTIONAL: No apparent distress. HEENT: Head is normocephalic. Pupils are equal, round. Sclerae anicteric. Mucous membranes of the mouth are moist. No JVD. No carotid bruit. CHEST EXAMINATION: Lungs are clear to auscultation. No chest wall tenderness is noted on palpation or with deep breathing. HEART EXAMINATION: Regular rate and rhythm. S1, S2 heard. No murmurs, gallops or rub. ABDOMEN: Soft, nontender. Positive bowel sounds. EXTREMITIES: 2+ peripheral pulses, no lower extremity edema and no calf tenderness. NEUROLOGIC EXAMINATION: Patient is awake, alert and oriented x3. ASSESSMENT Frequent falls, no loss of consciousness Acute kidney injury Leukocytosis Dehydration Hypertension Dyslipidemia Diabetes mellitus Paroxysmal atrial fibrillation on long-term anticoagulation secondary to hepatocellular cancer diagnosis in the past and frequent falls Coronary artery disease PLAN The patient herself denies any dizziness, near syncope or loss of consciousness. She feels like she is just losing her balance and falling. Recommend physical therapy evaluation. EKG revealed sinus bradycardia, reduce lopressor to 12.5 mg daily in the morning. Obtain 2D echocardiogram and doppler study to assess cardiac structure and function. Agree with gently hydration. Repeat BMP in the morning. No anti-coagulation at this time secondary to to frequent falls. Thank you kindly for this consultation. Nurse Practitioner note has been reviewed, I agree with a documented findings and plan of care. Patient was seen and examined. Past Medical History Past Medical History: Atrial Fibrillation, Cancer, CVA/TIA, Diabetes Mellitus, Hyperlipidemia, Hypertension Additional Past Medical History / Comment(s): Hepatocellular carcinoma (in remission), had one dose of chemo 2015, TIA X4, hiatal hernia, spinal stenosis, degenerative disc disease involving L3 and L4, diabetic peripheral neuropathy, hyperactive bladder, history of septic left knee joint post arthroplasty. rest less leg syndrome. History of Any Multi-Drug Resistant Organisms: MRSA Date of last positivie culture/infection: 2010 MDRO Source:: Left knee Past Surgical History: Adenoidectomy, Bariatric Surgery, Cholecystectomy, Heart Catheterization With Stent, Hernia Repair, Hysterectomy, Joint Replacement, Or thopedic Surgery, Tonsillectomy Additional Past Surgical History / Comment(s): Lap band placed in 2004, prolapsed & removed in 2006, neuro stimulator in back, one stent to LAD, left knee arthroscopic surgery, right total knee arthroplasty, left total knee arthroplasty 10/01/2011, repair of quadriceps tendon 08/21/2011, left knee patellar tendon repair 09/24/2011, removal of the hardware of the left total knee arthroplasty with implantation of the antibiotic spacer October 08 2011, total left knee hardware replacement in May 2012,. trigger finger, left hand in 2004 with subsequent reversal in 2005. Uses a walker or wheelchair Past Anesthesia/Blood Transfusion Reactions: No Reported Reaction Date of Last Stent Placement:: 05/17/2010 Past Psychological History: Anxiety, Depression Additional Psychological History / Comment(s): Pt resides with her Sonam cruz and her son in law. She ambulates rarely with a walker, mostly is in a wheelchair. Pt feeds herself. Sonam Cruz is pt's DPOA and caregiver. No home care used. Smoking Status: Never smoker Past Alcohol Use History: None Reported Past Drug Use History: None Reported - Past Family History Mother Family Medical History: Congestive Heart Failure (CHF) Father Family Medical History: Myocardial Infarction ([place]) Additional Family Medical History / Comment(s): Father at the age of 59 yrs from [place] Medications and Allergies Home Medications Medication Instructions Recorded Confirmed Type amLODIPine [Norvasc] 5 mg PO DAILY #30 tab 04/06/14 12/04/20 Rx Pantoprazole Sodium 40 mg PO DAILY 08/10/14 12/04/20 History Solifenacin Succinate [Vesicare] 10 mg PO HS 08/10/14 12/04/20 History Ondansetron [Zofran] 4 mg PO Q8H PRN 03/26/16 12/04/20 History Gabapentin [Neurontin] 600 mg PO HS 04/02/16 12/04/20 History Venlafaxine HCl [Effexor] 75 mg PO QAM 05/18/17 12/04/20 History Venlafaxine HCl [Effexor] 150 mg PO HS 05/18/17 12/04/20 History bisacodyL [Dulcolax] 5 mg PO QAM 05/18/17 12/04/20 History Aspirin [Adult Low Dose Aspirin EC] 81 mg PO DAILY 09/14/18 12/04/20 History rOPINIRole HCL [Requip] 0.25 mg PO HS PRN 06/06/19 12/04/20 History Metoprolol Tartrate 25 mg PO BID 10/07/19 12/04/20 History INSULIN ASPART (NovoLOG) [NovoLOG 5 unit SQ AC-TID 12/09/19 12/04/20 History (formulary)] INSULIN ASPART (NovoLOG) [NovoLOG See Protocol SQ AC-TID 12/09/19 12/04/20 History (formulary)] Ferrous Gluconate 324 mg PO DAILY 05/08/20 12/04/20 History ALPRAZolam [Xanax] 0.5 mg PO BID PRN #6 tab 05/11/20 12/04/20 Rx Gabapentin [Neurontin] 300 mg PO QAM #3 cap 05/11/20 12/04/20 Rx fentaNYL 50MCG/HR PATCH [Duragesic 1 patch TRANSDERM Q72H #1 patch 05/11/20 12/04/20 Rx 50MCG/HR] Atorvastatin [Lipitor] 40 mg PO DAILY 12/04/20 12/04/20 History Calcium Carbonate [Calcium] 600 mg PO DAILY 12/04/20 12/04/20 History Ergocalciferol (Vitamin D2) 50 mcg PO DAILY 12/04/20 12/04/20 History [Vitamin D2 (2000 Iu)] Insulin Glargine,Hum.rec.anlog 16 unit SQ DAILY 12/04/20 12/04/20 History [Lantus Solostar] Insulin Glargine,Hum.rec.anlog 20 unit SQ HS 12/04/20 12/04/20 History [Lantus Solostar] Nitrofurantoin Monohyd/M-Cryst 100 mg PO BID 12/04/20 12/04/20 History [Macrobid] Nystatin 100,000 Unit/gm Powd 1 applic TOPICAL BID PRN 12/04/20 12/04/20 History [Mycostatin Powder] Allergies Allergy/AdvReac Type Severity Reaction Status Date / Time metformin HCl Allergy "kidneys Verified 12/04/20 16:45 [From Glucophage] shut down" Physical Exam Vitals: Vital Signs Temp Pulse Pulse Resp BP BP Pulse Ox 12/04/20 21:43 97.8 F 57 L 16 121/73 96 12/04/20 21:20 97.8 F 57 L 16 121/73 96 12/04/20 21:11 60 18 145/79 98 12/04/20 18:58 49 L 16 137/83 96 12/04/20 18:17 49 L 16 146/73 100 12/04/20 17:30 48 L 16 154/76 98 12/04/20 15:30 97.6 F 56 L 18 105/67 100 Intake and Output 0112/05/20 12/05/20 22:59 06:59 14:59 Output Total 260 Balance -260 Output: Urine 260 Other: Voiding Method Bedside Commode # Voids 1 Weight 86.183 kg 96 kg Results 12/04/20 16:44 12/05/20 07:27 Cardiac Enzymes 12/04/20 12/04/20 12/04/20 Range/Units 16:44 16:44 20:30 AST 47 H (14-36) U/L Troponin I <0.012 <0.012 (0.000-0.034) ng/mL 12/05/20 Range/Units 00:16 AST (14-36) U/L Troponin I <0.012 (0.000-0.034) ng/mL Coagulation 12/04/20 Range/Units 16:44 PT 9.7 (9.0-12.0) sec CBC 12/04/20 Range/Units 16:44 WBC 15.6 H (3.8-10.6) k/uL RBC 4.79 (3.80-5.40) m/uL Hgb 13.3 (11.4-16.0) gm/dL Hct 41.0 (34.0-46.0) % Plt Count 298 (150-450) k/uL Comprehensive Metabolic Panel 12/04/20 12/05/20 Range/Units 16:44 07:27 Sodium 138 138 (137-145) mmol/L Potassium 5.2 H 4.0 (3.5-5.1) mmol/L Chloride 101 104 (98-107) mmol/L Carbon Dioxide 31 H 28 (22-30) mmol/L BUN 20 H 22 H (7-17) mg/dL Creatinine 1.24 H 1.17 H (0.52-1.04) mg/dL Glucose 273 H 109 H (74-99) mg/dL Calcium 9.2 8.7 (8.4-10.2) mg/dL AST 47 H (14-36) U/L ALT 32 (4-34) U/L Alkaline Phosphatase 189 H (38-126) U/L Total Protein 6.6 (6.3-8.2) g/dL Albumin 3.5 (3.5-5.0) g/dL Current Medications Generic Name Dose Route Start Last Admin Trade Name Freq PRN Reason Stop Dose Admin Amlodipine Besylate 5 mg 12/05/20 09:00 Amlodipine 5 Mg Tab PO BID [facility] Aspirin 81 mg 12/05/20 09:00 Aspirin 81 Mg PO DAILY [facility] Atorvastatin Calcium 40 mg 12/05/20 09:00 Atorvastatin 40 Mg Tab PO DAILY [facility] Enoxaparin Sodium 40 mg 12/05/20 09:00 Enoxaparin 40 Mg/0.4 Ml Syringe SQ DAILY [facility] Fentanyl 1 patch 12/04/20 22:00 12/04/20 23:06 Fentanyl 25mcg/Hr Patch TRANSDERM 1 patch Q72H [facility] Administration Ferrous Sulfate 325 mg 12/05/20 09:00 Ferrous Sulfate 325 Mg Tab PO DAILY [facility] Gabapentin 300 mg 12/05/20 21:00 Gabapentin 300 Mg Cap PO HS [facility] Sodium Chloride 1,000 mls @ 75 mls/hr 12/04/20 22:00 12/04/20 23:10 Saline 0.9% IV 75 mls/hr .[id number] [facility] Administration Insulin Aspart 5 unit 12/05/20 07:30 12/05/20 07:36 Insulin Aspart (Novolog) 100 Unit/Ml Vial SQ 5 unit AC-TID [facility] Administration Insulin Aspart 0 unit 12/04/20 22:56 12/05/20 07:35 Insulin Aspart (Novolog) 100 Unit/Ml Vial SQ Not Given ACHS [facility] Protocol Insulin Detemir 20 unit 12/04/20 21:00 12/04/20 23:09 Insulin Detemir (Levemir) 100 Unit/Ml Syr SQ 20 unit HS [facility] Administration Metoprolol Tartrate 12.5 mg 12/05/20 09:00 Metoprolol Tartrate 12.5 Mg Tab PO DAILY [facility] Naloxone HCl 0.2 mg 12/04/20 18:38 Naloxone 0.4 Mg/Ml 1 Ml Vial IV Q2M PRN Opioid Reversal Nitrofurantoin Macrocrystals 100 mg 12/04/20 21:00 12/04/20 23:08 Nitrofurantoin Monohyd/M-Cryst 100 Mg Cap PO 100 mg BID [facility] Administration Pantoprazole Sodium 40 mg 12/05/20 07:30 12/05/20 07:36 Pantoprazole 40 Mg Tablet PO 40 mg [id number] [facility] Administration Quetiapine Fumarate 50 mg 12/04/20 22:00 12/04/20 23:07 Quetiapine 50 Mg Tab PO 50 mg HS BRANDY Administration Ropinirole HCl 0.25 mg 12/04/20 20:44 Ropinirole Hcl 0.25 Mg Tab PO HS PRN RESTLESS LEGS Venlafaxine HCl 150 mg 12/04/20 21:00 12/04/20 23:08 Venlafaxine Hcl 75 Mg Tab PO 150 mg HS BRANDY Administration Venlafaxine HCl 75 mg 12/05/20 09:00 Venlafaxine Hcl 75 Mg Tab PO QAM BRANDY Intake and Output 12/04/20 12/05/20 12/05/20 22:59 06:59 14:59 Output Total 260 Balance -260 Output: Urine 260 Other: Voiding Method Bedside Commode # Voids 1 Weight 86.183 kg 96 kg 12/04/20 16:44 12/05/20 07:27
[2020-12-05] MEDS: ATORVASTATIN 40 MG TAB PO SCH (09:51)
[2020-12-05] MEDS: FERROUS SULFATE 325 MG TAB PO SCH (09:51)
[2020-12-05] MEDS: METOPROLOL TARTRATE 12.5 MG TAB PO SCH (09:51)
[2020-12-05 11:56] LABS: Glucose,Whole Blood 137 mg/dL (75-99)
--- NOTE | 2020-12-05 12:00 | ECHOF ---
Referral Reason:fall MEASUREMENTS -------- HEIGHT: 162.6 cm WEIGHT: 95.7 kg BP: IVSd: 1.7 cm (0.6 - 1.1) LVIDd: 2.2 cm (3.9 - 5.3) LVPWd: 1.7 cm (0.6 - 1.1) IVSs: 2.2 cm LVIDs: 1.5 cm LVPWs: 1.9 cm Ao Diam: 2.4 cm (2.0 - 3.7) AV Cusp: 1.8 cm (1.5 - 2.6) LA Diam: 3.6 cm (2.7 - 3.8) MV EXCURSION: 18.048 mm (> 18.000) MV EF SLOPE: 97 mm/s (70 - 150) EPSS: 0.4 cm MV E Scott: 0.42 m/s MV DecT: 287 ms MV A Scott: 0.62 m/s MV E/A Ratio: 0.68 RAP: 5.00 mmHg RVSP: 18.11 mmHg FINDINGS -------- Sinus rhythm. This was a technically adequate study. The left ventricular size is normal. There is severe concentric left ventricular hypertrophy. Ove rall left ventricular systolic function is normal with, an EF between 55 - 60 %. The right ventricle is normal in size. The left atrial size is normal. The right atrial size is normal. Aortic valve is trileaflet and is mildly thickened. The mitral valve leaflets are mildly thickened. There is trace mitral regurgitation. The tricuspid valve appears structurally normal. Trace tricuspid regurgitation present. Right mello tricular systolic pressure is normal at < 35 mmHg. The pulmonic valve was not well visualized. There is no pulmonic regurgitation present. The aortic root size is normal. IVC Not well visulized. There is no pericardial effusion. CONCLUSIONS -------- 1. There is severe concentric left ventricular hypertrophy. 2. Overall left ventricular systolic function is normal with, an EF between 55 - 60 %. 3. Aortic valve is trileaflet and is mildly thickened. 4. There is trace mitral regurgitation. 5. Trace tricuspid regurgitation present. 6. There is no pericardial effusion. GREASE MAN: Rashida Dougherty [facility]
--- NOTE | 2020-12-05 14:13 | P.CNNES ---
History of Present Illness Consult date: 12/05/20 Requesting physician: Edi Valdovinos Reason for Consult: Altered mental status History of Present Illness: Patient is a 70-year-old female came to the ER yesterday at 3:30 PM for altered mental status and frequent falls. Symptoms have progressed over the past week. Patient approximately fell 7 times, 5 times 2 days prior to arrival, twice yesterday 12/04/2020 on the day of admission. Patient did strike her head one time yesterday however denied any headache. Confusion seems to be waxing and waning. She is forgetful and having hallucinations. Patient believes that she was going to [place] after the ER visit however daughter states it was not true. I spoke to patient's daughter, who states that she is also passing out and falling. She has been having these episodes of falling spree, when she would fall a couple times a month and then none for a few months. These has been going on for last couple years. Patient also has history of bilateral knee replacement, but the left knee had total 5 surgeries. In April 2020 she fell and broke her left hip, requiring surgery as well. Patient's daughter states that when she passes out, she is out for about 4 or 5 minutes. There is no tongue bite although she may have loss of control of urine with some. Patient tells me that she came because she was very dizzy and because of frequent falls. She claims that she passed out 6-8 times in a week. No previous history of seizures. Patient has history of TIA in the past, in which she would have slurred speech with worsening confusion. Vital signs on arrival blood pressure 105/67, pulse rate 56, temperature 97.6. Chest x-ray showed no acute cardiopulmonary disease. CT of the head showed cerebral atrophy and chronic small vessel ischemia. No acute intracranial abnormality. No significant change. EKG shows sinus bradycardia with premature atrial complexes. Patient's the test shows WBC 15.6 hemoglobin 13.3, platelets 298. PT/INR normal. Chem-7 shows normal sodium potassium 5.2, BUN 20, creatinine 1.24. AST is mildly elevated 47 with normal ALT. CPK normal. Troponin negative. UA shows large amount of leukocyte Estrace, few bacteria. Patient's last hemoglobin A1c 11.7 on 01/04/2020. Patient has poorly controlled diabetes at least since 2013 when her A1c was 10.7. Patient had normal B12 600 on 01/04/2020 methylmalonic acid was mildly elevated 0.52/<0.40. Vitamin D 23.4. AST is normal a year ago. Patient had a previous carotid Doppler from 06/12/2015 revealed tortuosity present in both carotid bifurcations. No significant stenosis. Antegrade flow in both vertebral arteries. On reviewing her medications, patient is on Xanax 0.5 mg twice a day when necessary, gabapentin 300 mg every morning and 600 mg at bedtime, fentanyl 50 g patch every 72 hours, Requip 0.25 mg at bedtime Effexor 75 mg in the morning 150 mg at bedtime, besides her other usual medications. Review of Systems As above in detail. Patient denies any chest pain shortness of breath wheezing or cough. Denies any double vision, loss of vision, hoarseness, sore throat, dysphagia. Patient does have chronic left leg weakness. Arthritis. Denies any rash. No fever or chills. No weight loss. Denies nausea vomiting diarrhea. All other review of systems unremarkable. Past Medical History Past Medical History: Atrial Fibrillation, Cancer, CVA/TIA, Diabetes Mellitus, Hyperlipidemia, Hypertension Additional Past Medical History / Comment(s): Hepatocellular carcinoma (in remission), had one dose of chemo 2015, TIA X4, hiatal hernia, spinal stenosis, degenerative disc disease involving L3 and L4, diabetic peripheral neuropathy, hyperactive bladder, history of septic left knee joint post arthroplasty. rest less leg syndrome. History of Any Multi-Drug Resistant Organisms: MRSA Date of last positivie culture/infection: 2010 MDRO Source:: Left knee Past Surgical History: Adenoidectomy, Bariatric Surgery, Cholecystectomy, Heart Catheterization With Stent, Hernia Repair, Hysterectomy, Joint Replacement, Or thopedic Surgery, Tonsillectomy Additional Past Surgical History / Comment(s): Lap band placed in 2004, prolapsed & removed in 2005, neuro stimulator in back, one stent to LAD, left knee arthroscopic surgery, right total knee arthroplasty, left total knee arthroplasty 10/01/2011, repair of quadriceps tendon 08/21/2011, left knee patellar tendon repair 09/24/2011, removal of the hardware of the left total knee arthroplasty with implantation of the antibiotic spacer October 08 2011, total left knee hardware replacement in May 2012,. trigger finger, left hand in 2003 with subsequent reversal in 2005. Uses a walker or wheelchair Past Anesthesia/Blood Transfusion Reactions: No Reported Reaction Date of Last Stent Placement:: 05/17/2010 Past Psychological History: Anxiety, Depression Additional Psychological History / Comment(s): Pt resides with her Sonam cruz and her son in law. She ambulates rarely with a walker, mostly is in a wheelchair. Pt feeds herself. Sonam Cruz is pt's DPOA and caregiver. No home care used. Smoking Status: Never smoker Past Alcohol Use History: None Reported Past Drug Use History: None Reported - Past Family History Mother Family Medical History: Congestive Heart Failure (CHF) Father Family Medical History: Myocardial Infarction ([place]) Additional Family Medical History / Comment(s): Father at the age of 59 yrs from [place] Medications and Allergies Home Medications Medication Instructions Recorded Confirmed Type amLODIPine [Norvasc] 5 mg PO DAILY #30 tab 04/06/14 12/04/20 Rx Pantoprazole Sodium 40 mg PO DAILY 08/10/14 12/04/20 History Solifenacin Succinate [Vesicare] 10 mg PO HS 08/10/14 12/04/20 History Ondansetron [Zofran] 4 mg PO Q8H PRN 03/26/16 12/04/20 History Gabapentin [Neurontin] 600 mg PO HS 04/02/16 12/04/20 History Venlafaxine HCl [Effexor] 75 mg PO QAM 05/18/17 12/04/20 History Venlafaxine HCl [Effexor] 150 mg PO HS 05/18/17 12/04/20 History bisacodyL [Dulcolax] 5 mg PO QAM 05/18/17 12/04/20 History Aspirin [Adult Low Dose Aspirin EC] 81 mg PO DAILY 09/14/18 12/04/20 History rOPINIRole HCL [Requip] 0.25 mg PO HS PRN 06/06/19 12/04/20 History Metoprolol Tartrate 25 mg PO BID 10/07/19 12/04/20 History INSULIN ASPART (NovoLOG) [NovoLOG 5 unit SQ AC-TID 12/09/19 12/04/20 History (formulary)] INSULIN ASPART (NovoLOG) [NovoLOG See Protocol SQ AC-TID 12/09/19 12/04/20 History (formulary)] Ferrous Gluconate 324 mg PO DAILY 05/08/20 12/04/20 History ALPRAZolam [Xanax] 0.5 mg PO BID PRN #6 tab 05/11/20 12/04/20 Rx Gabapentin [Neurontin] 300 mg PO QAM #3 cap 05/11/20 12/04/20 Rx fentaNYL 50MCG/HR PATCH [Duragesic 1 patch TRANSDERM Q72H #1 patch 05/11/20 12/04/20 Rx 50MCG/HR] Atorvastatin [Lipitor] 40 mg PO DAILY 12/04/20 12/04/20 History Calcium Carbonate [Calcium] 600 mg PO DAILY 12/04/20 12/04/20 History Ergocalciferol (Vitamin D2) 50 mcg PO DAILY 12/04/20 12/04/20 History [Vitamin D2 (2000 Iu)] Insulin Glargine,Hum.rec.anlog 16 unit SQ DAILY 12/04/20 12/04/20 History [Lantus Solostar] Insulin Glargine,Hum.rec.anlog 20 unit SQ HS 12/04/20 12/04/20 History [Lantus Solostar] Nitrofurantoin Monohyd/M-Cryst 100 mg PO BID 12/04/20 12/04/20 History [Macrobid] Nystatin 100,000 Unit/gm Powd 1 applic TOPICAL BID PRN 12/04/20 12/04/20 History [Mycostatin Powder] Allergies Allergy/AdvReac Type Severity Reaction Status Date / Time metformin HCl Allergy "kidneys Verified 12/04/20 16:45 [From Glucophage] shut down" Physical Examination - Vital Signs Vital Signs: Vital Signs Temp Pulse Pulse Resp BP BP Pulse Ox 12/04/20 21:43 97.8 F 57 L 16 121/73 96 12/04/20 21:20 97.8 F 57 L 16 121/73 96 12/04/20 21:11 60 18 145/79 98 12/04/20 18:58 49 L 16 137/83 96 12/04/20 18:17 49 L 16 146/73 100 12/04/20 17:30 48 L 16 154/76 98 12/04/20 15:30 97.6 F 56 L 18 105/67 100 Intake and Output 12/04/20 12/05/2021 22:59 06:59 14:59 Output Total 260 Balance -260 Output: Urine 260 Other: Voiding Method Bedside Commode # Voids 1 Weight 86.183 kg 96 kg On examination patient is an elderly female, very pleasant in no acute distress. Patient is alert and awake. Patient states is November and the year is 2000, but then said is 2001. She states that she is in [facility] in the [facility]. On asking about current president, patient states that "they just did inauguration of Eder". She believes Eder is the president. Patient knows name of her daughter, and the telephone number she provided a daughter was actually her old work number where she worked at [employer]. On cranial nerve examination pupils are round and reactive to light, visual parsons appears full. Extraocular muscles are intact. Face is symmetric and tongue protrudes the midline. Palatal elevation sensation normal, hearing slightly decreased, shoulder shrug normal. Facial sensation normal. On muscle strength testing patient has mild left pronation, no drift. The strength is normal in both arms distally and proximally. In the lower limbs, her right leg is completely normal in the hip knee and ankles. On the left side her ankle is normal but she is very weak in the knee as well as the hip. She has multiple left knee surgeries and left hip replacement. Sensory to touch showed a lot of inconsistencies. She was feeling on both sides, with double simultaneous stimulation, she would sometimes neglect the left side, sometimes she will say "both" although I would be twitching only one side. No obvious ataxia for [id number] testing. Reflexes are 1 in the upper limbs, 0 at the knees 1 ankles and plantars are possibly up versus withdrawal bilaterally. Tone and bulk of muscles normal. Gait deferred. On general examination there is no carotid bruit, S1 and S2 audible, abdomen soft nontender, chest is clear. Mild peripheral edema. Results - Laboratory Findings CBC and BMP: 12/04/20 16:44 12/05/20 07:27 Abnormal Lab Findings: Abnormal Labs 12/04/20 12/04/20 12/04/20 16:08 16:44 16:44 WBC 15.6 H Neutrophils # 11.1 H Potassium 5.2 H Carbon Dioxide 31 H BUN 20 H Creatinine 1.24 H Glucose 273 H POC Glucose (mg/dL) AST 47 H Alkaline Phosphatase 189 H Urine Appearance Cloudy H Urine Protein Trace H Urine Glucose (UA) Trace H Ur Leukocyte Esterase Large H Urine Bacteria Few H Urine Mucus Rare H Urine Yeast (Budding) Few H 12/04/20 12/05/20 12/05/20 21:46 07:14 07:27 WBC Neutrophils # Potassium Carbon Dioxide BUN 22 H Creatinine 1.17 H Glucose 109 H POC Glucose (mg/dL) 223 H 110 H AST Alkaline Phosphatase Urine Appearance Urine Protein Urine Glucose (UA) Ur Leukocyte Esterase Urine Bacteria Urine Mucus Urine Yeast (Budding) Assessment and Plan Assessment: * Recurrent falls, syncope, unclear etiology. Patient probably has tendency to fall because of chronic leg weakness from multiple left knee surgeries and left hip weakness, which probably results in buckling of the knee and falls. Patient's daughter however tells that she also passes out, therefore need further syncopal workup. * Computed tomography scan of the head revealed a subacute to chronic lacunar stroke involving the left lower abida region. This was not present in the last computed tomography scan of head from 05/08/2020, therefore may represent a subacute to chronic stroke. * Long-standing history of poorly controlled diabetes, with last hemoglobin A1c 11.7 on 01/04/2020. * Hyperlipidemia * History of B12 deficiency (normal B12 600, but elevated methylmalonic acid 0.52) Plan: * Patient has history of multiple TIAs in the past. Computed tomography scan of the head revealed evidence of subacute to chronic left lower pontine lacunar stroke. MRI cannot be performed because patient has a neuro stimulator in the back. Patient has been on aspirin 81 mg daily. We will switch to Plavix 75 mg daily for stroke prevention. * Patient has multiple vascular risk factors, including poorly controlled diabetes, which needs to be addressed aggressively. She is also at risk for vascular dementia given her multiple TIAs, and poorly controlled risk factors. * For syncopal workup, we will check carotid Doppler and an EEG. * Patient had a 2-D echo performed today, which revealed severe concentric LVH, EF is 55-60%. * Check B12, folate, MMA, B1, hemoglobin A1c and fasting lipid panel. * Discussed with patient's daughter in detail.
--- NOTE | 2020-12-05 15:27 | US ---
EXAMINATION TYPE: US carotid duplex BILAT DATE OF EXAM: 12/05/2020 COMPARISON: NONE CLINICAL HISTORY: Syncope. Difficult exam due to patient movement and tortuous vessels bilaterally EXAM MEASUREMENTS: RIGHT: Peak Systolic Velocity (PSV) cm/sec ----- Right CCA: 69.9 ----- Right ICA: 467 ----- Right ECA: 160 ICA/CCA ratio: 6.7 RIGHT: End Diastole cm/sec ----- Right CCA: 11.8 ----- Right ICA: 53.8 ----- Right ECA: 16.3 LEFT: Peak Systolic Velocity (PSV) cm/sec ----- Left CCA: 99.1 ----- Left ICA: 111 ----- Left ECA: 78.2 ICA/CCA ratio: 1.1 LEFT: End Diastole cm/sec ----- Left CCA: 16.3 ----- Left ICA: 20.4 ----- Left ECA: 10.4 VERTEBRALS (direction of flow): Right Vertebral: Antegrade Left Vertebral: Antegrade Rhythm: Normal Grayscale, color Doppler, spectral Doppler imaging performed of the carotid arteries. Waveform analys is shows elevated peak systolic velocity in the proximal internal carotid artery in the right, there is loss of the systolic window, spectral broadening is noted. Moderate/severe amount of plaque right bulb. Elevated velocities visualized right bulb, right proximal & mid ICA IMPRESSION: Hemodynamic significant stenosis of the proximal internal carotid artery on the right by Doppler criteria, an indirect measurement of carotid stenosis. Findings correspond to at least 50-69 % diameter reduction and possibly higher. Consider CT angiogram or MRA Criteria for Assigning % of Stenosis / Diameter reduction (Estimation based on the indirect measurements of the internal carotid artery velocities (ICA PSV). 1. Normal (no stenosis)=ICA PSV < 125 cm/s: ratio < 2.0: ICA EDV<40 cm/s. 2. Less than 50% stenosis=ICA PSV < 125 cm/s: ratio < 2.0: ICA EDV<40 cm/s. 3. 50 to 69% stenosis=ICA PSV of 125 to 230 cm/s: ration 2.0 ? 4.0: ICA EDV 40-100 cm/s. 4. Greater than 70% stenosis to near occlusion= ICA PSV > 230 cm/s: ratio > 4.0: ICA EDV > 100 cm/s. 5. Near occlusion= ICA PSV velocities may be low or undetectable: variable ratio and ICA EDV. 6. Total occlusion=unable to detect flow.
[2020-12-05 16:56] LABS: Glucose,Whole Blood 140 mg/dL (75-99)
[2020-12-05] MEDS: CLOPIDOGREL 75 MG TAB PO SCH (17:22)
[2020-12-05] MEDS: SODIUM CHLORIDE 0.9% 1,000 ML IV SCH (18:18)
[2020-12-05 20:07] LABS: Glucose,Whole Blood 133 mg/dL (75-99)
[2020-12-05] MEDS: INSULIN DETEMIR (LEVEMIR) 100 UNIT/ML SYR SQ SCH (20:53)
[2020-12-05] MEDS: GABAPENTIN 300 MG CAP PO SCH (20:54)
[2020-12-05] MEDS: QUEtiapine 50 MG TAB PO SCH (20:54)
--- NOTE | 2020-12-05 21:40 | P.PN ---
Progress Note - Text Progress Note Date: 12/05/20 Chief Complaint: Falls Consultation: This is a 70-year-old patient of visiting physician Dr. Amanuel Smith. 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 Patient is to the Dr. Joaquin. Daughter brought the patient for multiple issues. Patient has a bedside commode. Does not walk any. Last 3 days has fallen down about 7 times. Noted to have increasing confusion. Patient's oral intake is variable. Patient's chronic pain all over. Also, no stability. Has been becoming more forgetful. The patient is able to answer simple questions and recognize her daughter etc. No fever no chills. She did have a sandwich this evening. Admitted with-delirium acute metabolic encephalopathy. Acute kidney injury prerenal. Patient insulin was cut back. Lopressor was stopped because of bradycardia. Norvasc was increased. Fentanyl patch was cut back to 25 g an hour. Also Neurontin dose was cut back in the setting of acute kidney injury. Sleep hygiene was instituted. Seroquel was added at night. Today-patient slept well last night. Oral intake good. Able to carry a simple conversation. Review of systems: Was done for constitutional, cardiovascular, GI, pulmonary. relevant finding as above Active Medications Amlodipine Besylate (Amlodipine 5 Mg Tab) 5 mg PO BID [facility] Last Admin: 12/05/20 20:54 Dose: 5 mg Documented by: Atorvastatin Calcium (Atorvastatin 40 Mg Tab) 40 mg PO DAILY [facility] Last Admin: 12/05/20 09:51 Dose: 40 mg Documented by: Clopidogrel Bisulfate (Clopidogrel 75 Mg Tab) 75 mg PO DAILY [facility] Last Admin: 12/05/20 17:22 Dose: 75 mg Documented by: Enoxaparin Sodium (Enoxaparin 40 Mg/0.4 Ml Syringe) 40 mg SQ DAILY [facility] Last Admin: 12/05/20 09:50 Dose: 40 mg Documented by: Ferrous Sulfate (Ferrous Sulfate 325 Mg Tab) 325 mg PO DAILY [facility] Last Admin: 12/05/20 09:51 Dose: 325 mg Documented by: Gabapentin (Gabapentin 300 Mg Cap) 300 mg PO HS [facility] Last Admin: 12/05/20 20:54 Dose: 300 mg Documented by: Sodium Chloride (Saline 0.9%) 1,000 mls @ 75 mls/hr IV .[id number] [facility] Last Admin: 12/05/20 18:18 Dose: 75 mls/hr Documented by: Insulin Aspart (Insulin Aspart (Novolog) 100 Unit/Ml Vial) 5 unit SQ AC-TID [facility] Last Admin: 12/05/20 17:22 Dose: 5 unit Documented by: Insulin Aspart (Insulin Aspart (Novolog) 100 Unit/Ml Vial) 0 unit SQ ACHS [facility]; Protocol Last Admin: 12/05/20 20:53 Dose: 1 unit Documented by: Insulin Detemir (Insulin Detemir (Levemir) 100 Unit/Ml Syr) 20 unit SQ [facility] Last Admin: 12/05/20 20:53 Dose: 20 unit Documented by: Metoprolol Tartrate (Metoprolol Tartrate 12.5 Mg Tab) 12.5 mg PO DAILY [facility] Last Admin: 12/05/20 09:51 Dose: 12.5 mg Documented by: Naloxone HCl (Naloxone 0.4 Mg/Ml 1 Ml Vial) 0.2 mg IV Q2M PRN PRN Reason: Opioid Reversal Nitrofurantoin Macrocrystals (Nitrofurantoin Monohyd/M-Cryst 100 Mg Cap) 100 mg PO BID [facility] Last Admin: 12/05/20 20:55 Dose: 100 mg Documented by: Pantoprazole Sodium (Pantoprazole 40 Mg Tablet) 40 mg PO AC-BRKFST [facility] Last Admin: 12/05/20 07:36 Dose: 40 mg Documented by: Quetiapine Fumarate (Quetiapine 50 Mg Tab) 50 mg PO HS [facility] Last Admin: 12/05/20 20:54 Dose: 50 mg Documented by: Ropinirole HCl (Ropinirole Hcl 0.25 Mg Tab) 0.25 mg PO HS PRN PRN Reason: RESTLESS LEGS Venlafaxine HCl (Venlafaxine Hcl 75 Mg Tab) 150 mg PO [facility] Last Admin: 12/05/20 20:54 Dose: 150 mg Documented by: Venlafaxine HCl (Venlafaxine Hcl 75 Mg Tab) 75 mg PO QAM [facility] Last Admin: 12/05/20 09:50 Dose: 75 mg Documented by: Past medical history to include: Atrial fibrillation, diabetes mellitus, hypertension, hyperlipidemia, hepato- cellular carcinoma in remission after 1 dose of chemotherapy, spinal stenosis, DJD including lumbar spine, diabetic peripheral neuropathy, hyperactive bladder, septic left knee joint, restless leg syndrome, coronary artery disease with stent Social history: This with Dr. Joaquin . Mostly uses a wheelchair. Patient's daughter is to OA. No history of smoking or alcohol. Physical examination: VITAL SIGNS: 98.1, 71, 16, 140 with 70, 95% room air GENERAL: BMI 32.6, sitting up looking better EYES: Pupils equal. Conjunctiva normal. HEENT: External appearance of nose and ears normal, oral cavity grossly normal. NECK: JVD not raised; masses not palpable. HEART: First and second heart sounds are normal; no edema. LUNGS: Respiratory rate normal; distant breath sounds. ABDOMEN: Soft, nontender, liver spleen not palpable, no masses palpable. PSYCH: Able to answer simple questions. NEUROLOGICAL: Cranial nerves grossly intact; no facial asymmetry, power and sensation grossly intact. INVESTIGATIONS, reviewed in the clinical context: December 05: Potassium 4 creatinine 1.17 white of B12 324 Carotid Doppler-moderate to severe amount of block in the right bulb. Hemodynamic significant stenosis of the proximal left ICA on the right. 2-D echocardiogram-here 55-60%, severe concentric LVH White count 15.6 hemoglobin 13.3 platelets 298 potassium 5.2 bun 20 creatinine 1.24 UA positive for leukoesterase, bacteria Previous testing: Potassium 4.6 bun 17 creatinine 0.69 on May 2020 Assessment: -Acute delirium from contribution of patient being on Neurontin, fentanyl the setting of acute kidney injury-improving, fentanyl and Neurontin) have been cut back -Paroxysmal atrial fibrillation currently in sinus rhythm -Multiple falls likely from delirium/metabolic encephalopathy -Acute kidney injury likely prerenal from decreased oral intake-improving -Coronary artery disease with a history of stent -Diabetes mellitus type 2 on oral hypoglycemic -Essential hypertension -Hyperlipidemia -Hiatal hernia -DJD -Diabetic peripheral neuropathy -Chronic gait dysfunction uses a wheelchair at baseline -Restless leg syndrome -Obesity BMI 32.6 -Acute UTI with cystitis -Moderate to severe cognitive impairment Plan: Patient's bili complain of any pain. Will DC the fentanyl patch. Continue current dose of insulin. Blood pressures more respectable. Continue IV fluids overnight. Plan this patient to return to home with home care. Seen by physical therapy. May be able to return home with some supervision and help.
[2020-12-05 22:07] LABS: Folate, Serum 10.3 ng/mL
[2020-12-06] MEDS: SODIUM CHLORIDE 0.9% 1,000 ML IV SCH ×2 (04:15→15:25)
[2020-12-06 07:06] LABS: Glucose,Whole Blood 151 mg/dL (75-99)
[2020-12-06] MEDS: PANTOPRAZOLE 40 MG TABLET PO SCH (07:09)
[2020-12-06] MEDS: INSULIN ASPART (NovoLOG) 100 UNIT/ML VIAL SQ SCH ×7 (07:09→20:51)
[2020-12-06 08:26] LABS: Cholesterol 110 mg/dL (<200); HDL Cholesterol 34 mg/dL (40-60); LDL Cholesterol,Calculated 48 mg/dL (0-99); Triglycerides 141 mg/dL (<150)
[2020-12-06] MEDS: VENLAFAXINE HCL 75 MG TAB PO SCH ×2 (09:25→20:52)
[2020-12-06] MEDS: ENOXAPARIN 40 MG/0.4 ML SYRINGE SQ SCH (09:25)
[2020-12-06] MEDS: METOPROLOL TARTRATE 12.5 MG TAB PO SCH (09:26)
[2020-12-06] MEDS: NITROFURANTOIN MONOHYD/M-CRYST 100 MG CAP PO SCH ×2 (09:26→20:51)
[2020-12-06] MEDS: ATORVASTATIN 40 MG TAB PO SCH (09:26)
[2020-12-06] MEDS: CLOPIDOGREL 75 MG TAB PO SCH (09:26)
[2020-12-06] MEDS: FERROUS SULFATE 325 MG TAB PO SCH (09:26)
[2020-12-06] MEDS: amLODIPine 5 MG TAB PO SCH ×2 (09:26→20:51)
[2020-12-06] MEDS ORDERED: CYANOCOBALAMIN 1,000 MCG/ML 1 ML VIAL IM ONE (10:39)
--- NOTE | 2020-12-06 10:39 | EEG ---
ELECTROENCEPHALOGRAM REPORT DATE OF SERVICE: 12/05/2020 PREAMBLE: This is a 70-year-old female who has presented with altered mental status, falls and possible syncope. This EEG performed to rule out any epileptiform activity. EEG FINDINGS: This is a 21 channel routine EEG recording in a patient utilizing 10/20 international system with referential and bipolar montages. The background consists of well- developed, moderately well regulated, mixed frequencies of 6-7 hertz theta intermixed with some 2-3 moderate amplitude delta activity. The background does not seem to be clearly reactive to eye opening and closing. Different stages of sleep were not seen. Photic driving response was not seen. No focal or generalized epileptiform activity was seen. IMPRESSION: This is an abnormal EEG due to background slowing of mild to moderate degree. This is suggestive of generalized cerebral dysfunction as can be seen with toxic metabolic encephalopathy or due to diffuse structural brain abnormality. No epileptiform activity was seen. MMODL / IJN: [id number] /
[2020-12-06 11:18] VITALS: BMI 29.7
[2020-12-06 11:36] LABS: Glucose,Whole Blood 260 mg/dL (75-99)
--- NOTE | 2020-12-06 13:22 | P.PN ---
Subjective Progress Note Date: 12/06/20 Patient is feeling much better. Offers no new complaints. Patient is laying comfortably in the bed. Denies headache. Denies any numbness tingling or focal weakness. Does have chronic left leg weakness. Objective - Vital Signs Vital signs: Vital Signs Temp 96.5 F L 12/06/20 11:50 Pulse 75 12/06/20 11:50 Resp 16 12/06/20 11:50 BP 140/67 12/06/20 11:50 Pulse Ox 93 L 12/06/20 11:50 Intake & Output 12/05/20 12/06/20 12/06/20 18:59 06:59 18:59 Intake Total 720 240 Balance 720 240 Weight 96 kg 78.7 kg 78.7 kg Intake: Oral 720 240 Other: Voiding Method Bedside Commode # Voids 1 # Bowel Movements 1 1 - Exam On examination patient's mental status, speech and language functions are normal. Patient knows it is 12/06/2020 and she knows that she is in [facility] but thinks she is in [place] and she believes on it. On cranial nerve exam her pupils are round and reacting to light, visual parsons are full on confrontation, with no neglect on double simultaneous to ablation. Extraocular muscles are intact. Face is symmetric and tongue protrudes to the midline. Palatal elevation and sensation normal. Hearing and shoulder shrug normal. On muscle strength testing there is no pronator drift and the strength is normal in both arms distally and proximally. Patient's right leg is completely normal distally and proximally. Left ankle and toes are normal. Patient's left knee (3-4) and hip (4+) are weak. Sensory touch is equal with no neglect on double simultaneous depression. No ataxia for yrddiy-qh-rhkx testing bilaterally. - Labs CBC & Chem 7: 12/04/20 16:44 12/05/20 07:27 Labs: Abnormal Lab Results - Last 24 Hours (Table) 12/04/20 12/05/20 12/05/20 Range/Units 14:09 16:53 20:06 POC Glucose (mg/dL) 140 H 133 H (75-99) mg/dL Hemoglobin A1c 11.0 H (4.0-6.0) % HDL Cholesterol (40-60) mg/dL 12/06/20 12/06/2021 Range/Units 07:03 07:05 11:35 POC Glucose (mg/dL) 151 H 260 H (75-99) mg/dL Hemoglobin A1c (4.0-6.0) % HDL Cholesterol 34 L (40-60) mg/dL Microbiology - Last 24 Hours (Table) 12/04/20 16:44 Blood Culture - Preliminary Blood No Growth after 24 hours Assessment and Plan Assessment: * Recurrent falls, syncope, unclear etiology. Patient probably has tendency to fall because of chronic leg weakness from multiple left knee surgeries and left hip weakness, which probably results in buckling of the knee and falls. Patient's daughter however tells that she also passes out, therefore need further syncopal workup. * Computed tomography scan of the head revealed a subacute to chronic lacunar stroke involving the left lower abida region. This was not present in the last computed tomography scan of head from 05/08/2020, therefore may represent a subacute to chronic stroke. * Long-standing history of poorly controlled diabetes, with last hemoglobin A1c 11.7 on 01/04/2020. * Hyperlipidemia * History of B12 deficiency (normal B12 600, but elevated methylmalonic acid 0.52) Plan: * Patient appears to have much improved as compared to yesterday. Her sensory, visual examination is normal with no neglect. Patient will be continued on Plavix 75 mg daily. * Patient has multiple vascular risk factors, including poorly controlled diabetes, which needs to be addressed aggressively. She is also at risk for vascular dementia given her multiple TIAs, and poorly controlled risk factors. * Carotid Doppler revealed moderate stenosis right ICA 50-69% or higher. C onsider CTA or MRA. Patient cannot have MRI due to presence of neurostimulator. CTA carries risk because of mild to moderate renal insufficiency. We will have vascular surgery consult. Discussed with Dr. Ernst. * EEG was abnormal due to sppw-za-blzellhi background slowing, consistent with encephalopathy. No epileptiform activity was seen. * 2-D echo revealed severe concentric LVH, EF is 55-60%. * B12 324, folate 10.3, MMA pending, B1 pending, hemoglobin A1c 11.0 and fasting lipid panel with cholesterol 110, LDL 48, HDL 34 and triglycerides 141. Continue statins. Patient given B12 injection 1000 g IM 1. * PT OT. * Telemetry monitoring showing sinus rhythm. * Neurologically clear.
[2020-12-06 17:05] LABS: Glucose,Whole Blood 170 mg/dL (75-99)
[2020-12-06 20:14] LABS: Glucose,Whole Blood 175 mg/dL (75-99)
[2020-12-06] MEDS: GABAPENTIN 300 MG CAP PO SCH (20:51)
[2020-12-06] MEDS: QUEtiapine 50 MG TAB PO SCH (20:51)
[2020-12-06] MEDS: INSULIN DETEMIR (LEVEMIR) 100 UNIT/ML SYR SQ SCH (20:51)
[2020-12-06] MEDS ORDERED: INSULIN DETEMIR (LEVEMIR) 100 UNIT/ML SYR SQ SCH (21:00)
--- NOTE | 2020-12-06 21:25 | P.PN ---
Progress Note - Text Progress Note Date: 12/06/20 Chief Complaint: Falls Consultation: This is a 70-year-old patient of visiting physician Dr. Amanuel Smith. 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 Patient is to the Dr. Joaquin. Daughter brought the patient for multiple issues. Patient has a bedside commode. Does not walk any. Last 3 days has fallen down about 7 times. Noted to have increasing confusion. Patient's oral intake is variable. Patient's chronic pain all over. Also, no stability. Has been becoming more forgetful. The patient is able to answer simple questions and recognize her daughter etc. No fever no chills. She did have a sandwich this evening. Admitted with-delirium acute metabolic encephalopathy. Acute kidney injury prerenal. Patient insulin was cut back. Lopressor was stopped because of bradycardia. Norvasc was increased. Fentanyl patch was cut back to 25 g an hour. Also Neurontin dose was cut back in the setting of acute kidney injury. Sleep hygiene was instituted. Seroquel was added at night. Carotid Doppler shows about 50-69% stenosis. Some plaques. Today-stable. Oral intake fair. Able to carry simple conversation. Review of systems: Was done for constitutional, cardiovascular, GI, pulmonary. relevant finding as above Active Medications Amlodipine Besylate (Amlodipine 5 Mg Tab) 5 mg PO BID [facility] Last Admin: 12/06/20 20:51 Dose: 5 mg Documented by: Atorvastatin Calcium (Atorvastatin 40 Mg Tab) 40 mg PO DAILY [facility] Last Admin: 12/06/20 09:26 Dose: 40 mg Documented by: Clopidogrel Bisulfate (Clopidogrel 75 Mg Tab) 75 mg PO DAILY [facility] Last Admin: 12/06/20 09:26 Dose: 75 mg Documented by: Enoxaparin Sodium (Enoxaparin 40 Mg/0.4 Ml Syringe) 40 mg SQ DAILY [facility] Last Admin: 12/06/20 09:25 Dose: 40 mg Documented by: Ferrous Sulfate (Ferrous Sulfate 325 Mg Tab) 325 mg PO DAILY [facility] Last Admin: 12/06/20 09:26 Dose: 325 mg Documented by: Gabapentin (Gabapentin 300 Mg Cap) 300 mg PO HS [facility] Last Admin: 12/06/20 20:51 Dose: 300 mg Documented by: Sodium Chloride (Saline 0.9%) 1,000 mls @ 75 mls/hr IV .[id number] [facility] Last Admin: 12/06/20 15:25 Dose: 75 mls/hr Documented by: Insulin Aspart (Insulin Aspart (Novolog) 100 Unit/Ml Vial) 5 unit SQ AC-TID [facility] Last Admin: 12/06/20 17:25 Dose: 5 unit Documented by: Insulin Aspart (Insulin Aspart (Novolog) 100 Unit/Ml Vial) 0 unit SQ [facility]; Protocol Last Admin: 12/06/20 20:51 Dose: 2 unit Documented by: Insulin Detemir (Insulin Detemir (Levemir) 100 Unit/Ml Syr) 20 unit SQ [facility] Last Admin: 12/06/20 20:51 Dose: 20 unit Documented by: Metoprolol Tartrate (Metoprolol Tartrate 12.5 Mg Tab) 12.5 mg PO DAILY [facility] Last Admin: 12/06/20 09:26 Dose: 12.5 mg Documented by: Naloxone HCl (Naloxone 0.4 Mg/Ml 1 Ml Vial) 0.2 mg IV Q2M PRN PRN Reason: Opioid Reversal Nitrofurantoin Macrocrystals (Nitrofurantoin Monohyd/M-Cryst 100 Mg Cap) 100 mg PO BID [facility] Last Admin: 12/06/20 20:51 Dose: 100 mg Documented by: Pantoprazole Sodium (Pantoprazole 40 Mg Tablet) 40 mg PO AC-BRKFST [facility] Last Admin: 12/06/20 07:09 Dose: 40 mg Documented by: Quetiapine Fumarate (Quetiapine 50 Mg Tab) 50 mg PO [facility] Last Admin: 12/06/20 20:51 Dose: 50 mg Documented by: Ropinirole HCl (Ropinirole Hcl 0.25 Mg Tab) 0.25 mg PO HS PRN PRN Reason: RESTLESS LEGS Last Admin: 12/06/20 00:14 Dose: 0.25 mg Documented by: Venlafaxine HCl (Venlafaxine Hcl 75 Mg Tab) 150 mg PO [facility] Last Admin: 12/06/20 20:52 Dose: 150 mg Documented by: Venlafaxine HCl (Venlafaxine Hcl 75 Mg Tab) 75 mg PO QAM [facility] Last Admin: 12/06/20 09:25 Dose: 75 mg Documented by: Past medical history to include: Atrial fibrillation, diabetes mellitus, hypertension, hyperlipidemia, hepato- cellular carcinoma in remission after 1 dose of chemotherapy, spinal stenosis, DJD including lumbar spine, diabetic peripheral neuropathy, hyperactive bladder, septic left knee joint, restless leg syndrome, coronary artery disease with stent Social history: This with Dr. Joaquin . Mostly uses a wheelchair. Patient's daughter is to [facility]. No history of smoking or alcohol. Physical examination: VITAL SIGNS: 97.3, 84, 16, 133 bradycardia 3, 97% room air GENERAL: BMI 32.6, laying in bed, awake EYES: Pupils equal. Conjunctiva normal. HEENT: External appearance of nose and ears normal, oral cavity grossly normal. NECK: JVD not raised; masses not palpable. HEART: First and second heart sounds are normal; no edema. LUNGS: Respiratory rate normal; distant breath sounds. ABDOMEN: Soft, nontender, liver spleen not palpable, no masses palpable. PSYCH: Able to answer simple questions. NEUROLOGICAL: Cranial nerves grossly intact; no facial asymmetry, power and sensation grossly intact. INVESTIGATIONS, reviewed in the clinical context: December 06: LDL 48 B12 324 folate-10.3. Accu-Cheks 137, 140 EEG-background slowing of pezx-pu-qqnbhpgc degree. No seizure activity. December 05: Potassium 4 creatinine 1.17 white of B12 324 Carotid Doppler-moderate to severe amount of block in the right bulb. Hem odynamic significant stenosis of the proximal left ICA on the right. 2-D echocardiogram-here 55-60%, severe concentric LVH White count 15.6 hemoglobin 13.3 platelets 298 potassium 5.2 bun 20 creatinine 1.24 UA positive for leukoesterase, bacteria Previous testing: Potassium 4.6 bun 17 creatinine 0.69 on May 2020 Assessment: -Acute delirium from contribution of patient being on Neurontin, fentanyl the setting of acute kidney injury-improving, fentanyl and Neurontin) have been cut back. Fentanyl was discontinued. -Paroxysmal atrial fibrillation currently in sinus rhythm -Multiple falls likely from delirium/metabolic encephalopathy -Acute kidney injury likely prerenal from decreased oral intake-improving -Coronary artery disease with a history of stent -Diabetes mellitus type 2 on oral hypoglycemic -Essential hypertension -Hyperlipidemia -Hiatal hernia -DJD -Diabetic peripheral neuropathy -Chronic gait dysfunction uses a wheelchair at baseline -Restless leg syndrome -Obesity BMI 32.6 -Acute UTI with cystitis -Moderate to severe cognitive impairment Plan: Patient doing well off the fentanyl patch. Not complaining of pain. Repeat BMP in the morning. DC IV fluids. Keep on the current dose of Neurontin. Increase evening dose of Levemir to 26 units. Hopefully discharge tomorrow.
[2020-12-07] MEDS: PANTOPRAZOLE 40 MG TABLET PO SCH (06:39)
[2020-12-07 07:07] LABS: Glucose,Whole Blood 216 mg/dL (75-99)
[2020-12-07] MEDS: INSULIN ASPART (NovoLOG) 100 UNIT/ML VIAL SQ SCH ×7 (07:09→21:24)
[2020-12-07 07:53] LABS: Calcium 9.4 mg/dL (8.4-10.2); Potassium 4.3 mmol/L (3.5-5.1)
[2020-12-07] MEDS: amLODIPine 5 MG TAB PO SCH (09:23)
[2020-12-07] MEDS: VENLAFAXINE HCL 75 MG TAB PO SCH ×2 (09:23→21:25)
[2020-12-07] MEDS: ENOXAPARIN 40 MG/0.4 ML SYRINGE SQ SCH (09:24)
[2020-12-07] MEDS: METOPROLOL TARTRATE 12.5 MG TAB PO SCH (09:24)
[2020-12-07] MEDS: NITROFURANTOIN MONOHYD/M-CRYST 100 MG CAP PO SCH ×2 (09:24→21:25)
[2020-12-07] MEDS: CLOPIDOGREL 75 MG TAB PO SCH (09:24)
[2020-12-07] MEDS: FERROUS SULFATE 325 MG TAB PO SCH (09:24)
[2020-12-07] MEDS: ATORVASTATIN 40 MG TAB PO SCH (09:24)
[2020-12-07 12:06] LABS: Glucose,Whole Blood 199 mg/dL (75-99)
--- NOTE | 2020-12-07 14:57 | CT ---
EXAMINATION TYPE: CT angio head neck DATE OF EXAM: 12/07/2020 COMPARISON: None HISTORY: weakness CT DLP: 631.9 mGycm CONTRAST: Patient injected with 65 mL of Isovue 370. TECHNIQUE: Axial images at 3 mm thick sections. Reconstructed images in the coronal plane and sagitt al plane are reviewed. FINDINGS: Limited CT sections are obtained the lung apices. The lung apices appear clear. CT neck: The torus tubarius and fossa of Rosenmuller are normal. Product Promoter Sales Person spaces are normal. Para nasal sinuses and mastoid air cells are clear. Parotid glands appear normal and symmetrical. Submandibular glands, are normal. Parapharyngeal spac es are normal. No suspicious adenopathy is evident. The hypopharynx appears within normal limits. Vocal cord level appear symmetrical. Thyroid as visualized is normal. Degenerative disc changes are present through the cervical spine. Some straightening of the cervical spine is in the mid to lower portion. CTA: Internal carotid arteries bifurcate normally and internal and external segments. No significant flow-limiting stenosis is evident. No stenosis by measurement criteria is within the right internal c arotid artery Atheromatous plaquing is within the right internal carotid artery origin without signif icant flow-limiting stenosis. CTA [place]: Internal carotid arteries bifurcate normally into A1 and M1 segments. The left A1 segment is hypoplastic. The anterior communicating artery is patent. A2 segments are normal. Middl e cerebral artery branches appear unremarkable. The left posterior communicating artery is patent. Th e right vertebral artery terminates in the PICA. Left vertebral artery and basilar artery appear norm al. IMPRESSIONS: 1. Advanced degenerative disc changes cervical spine. 2. Atheromatous plaquing right internal carotid artery without significant flow-limiting stenosis. 3. Normal variation [place]
--- NOTE | 2020-12-07 16:04 | P.GSCN ---
History of Present Illness Consult date: 12/07/20 Reason for Consult: Carotid stenosis, syncope and fall History of present illness: Patient is a pleasant 70-year-old female who came into the emergency room a couple days ago with altered mental status and frequent falls. The patient states that she has fallen 7 times in the last week or so. She states she does not feel like she gets dizzy or the room is spinning, but just gets weak and falls. She denies any shortness of breath, chest pain, dizziness, or abdominal pain. She eyes any focal deficits including visual changes, slurred speech, upper or lower extremity weakness, or facial drooping. She is alert and oriented to self. Past medical history includes atrial fibrillation which she is not on long-term anticoagulation due to hepatocellular cancer and frequent falls, multiple TIAs, diabetes mellitus, hyperlipidemia and hypertension. The patient underwent a duplex which showed 50-69% stenosis of the right ICA along with a CT of the brain showing subacute to chronic left lower pontine lacunar stroke less vascular surgery was consulted. He is seen and examined and appears in no acute distress. She denies any focal deficits, she denies any shortness of breath or chest pain currently. Past Medical History Past Medical History: Atrial Fibrillation, Cancer, CVA/TIA, Diabetes Mellitus, Hyperlipidemia, Hypertension Additional Past Medical History / Comment(s): Hepatocellular carcinoma (in remission), had one dose of chemo 2015, TIA X4, hiatal hernia, spinal stenosis, degenerative disc disease involving L3 and L4, diabetic peripheral neuropathy, hyperactive bladder, history of septic left knee joint post arthroplasty. restless leg syndrome. History of Any Multi-Drug Resistant Organisms: MRSA Year Discovered:: 2010 MDRO Source:: Left knee Past Surgical History: Adenoidectomy, Bariatric Surgery, Cholecystectomy, Heart Catheterization With Stent, Hernia Repair, Hysterectomy, Joint Replacement, Orthopedic Surgery, Tonsillectomy Additional Past Surgical History / Comment(s): Lap band placed in 2004, prolapsed & removed in 2005, neuro stimulator in back, one stent to LAD, left knee arthroscopic surgery, right total knee arthroplasty, left total knee arthroplasty 10/01/2011, repair of quadriceps tendon 08/21/2011, left knee patellar tendon repair 09/24/2011, removal of the hardware of the left total knee arthroplasty with implantation of the antibiotic spacer October 08 2011, total left knee hardware replacement in May 2012,. trigger finger, left hand in 2003 with subsequent reversal in 2005. Uses a walker or wheelchair Past Anesthesia/Blood Transfusion Reactions: No Reported Reaction Date of Last Stent Placement:: 05/17/2010 Past Psychological History: Anxiety, Depression Additional Psychological History / Comment(s): Pt resides with her Sonam cruz and her son in law. She ambulates rarely with a walker, mostly is in a wheelchair. Pt feeds herself. Sonam Cruz is pt's DPOA and caregiver. No home care used. Smoking Status: Never smoker Past Alcohol Use History: None Reported Past Drug Use History: None Reported - Past Family History Mother Family Medical History: Congestive Heart Failure (CHF) Father Family Medical History: Myocardial Infarction ([place]) Additional Family Medical History / Comment(s): Father at the age of 59 yrs from [place] Medications and Allergies Home Medications Medication Instructions Recorded Confirmed Type amLODIPine [Norvasc] 5 mg PO DAILY #30 tab 04/06/14 12/04/20 Rx Pantoprazole Sodium 40 mg PO DAILY 08/10/14 12/04/20 History Solifenacin Succinate [Vesicare] 10 mg PO HS 08/10/14 12/04/20 History Ondansetron [Zofran] 4 mg PO Q8H PRN 03/26/16 12/04/20 History Gabapentin [Neurontin] 600 mg PO HS 04/02/16 12/04/20 History Venlafaxine HCl [Effexor] 75 mg PO QAM 05/18/17 12/04/20 History Venlafaxine HCl [Effexor] 150 mg PO HS 05/18/17 12/04/20 History bisacodyL [Dulcolax] 5 mg PO QAM 05/18/17 12/04/20 History Aspirin [Adult Low Dose Aspirin EC] 81 mg PO DAILY 09/14/18 12/04/20 History rOPINIRole HCL [Requip] 0.25 mg PO HS PRN 06/06/19 12/04/20 History Metoprolol Tartrate 25 mg PO BID 10/07/19 12/04/20 History INSULIN ASPART (NovoLOG) [NovoLOG 5 unit SQ AC-TID 12/09/19 12/04/20 History (formulary)] INSULIN ASPART (NovoLOG) [NovoLOG See Protocol SQ AC-TID 12/09/19 12/04/20 History (formulary)] Ferrous Gluconate 324 mg PO DAILY 05/08/20 12/04/20 History ALPRAZolam [Xanax] 0.5 mg PO BID PRN #6 tab 05/11/20 12/04/20 Rx Gabapentin [Neurontin] 300 mg PO QAM #3 cap 05/11/20 12/04/20 Rx fentaNYL 50MCG/HR PATCH [Duragesic 1 patch TRANSDERM Q72H #1 patch 05/11/20 12/04/20 Rx 50MCG/HR] Atorvastatin [Lipitor] 40 mg PO DAILY 12/04/20 12/04/20 History Calcium Carbonate [Calcium] 600 mg PO DAILY 12/04/20 12/04/20 History Ergocalciferol (Vitamin D2) 50 mcg PO DAILY 12/04/20 12/04/20 History [Vitamin D2 (2000 Iu)] Insulin Glargine,Hum.rec.anlog 16 unit SQ DAILY 12/04/20 12/04/20 History [Lantus Solostar] Insulin Glargine,Hum.rec.anlog 20 unit SQ HS 12/04/20 12/04/20 History [Lantus Solostar] Nitrofurantoin Monohyd/M-Cryst 100 mg PO BID 12/04/20 12/04/20 History [Macrobid] Nystatin 100,000 Unit/gm Powd 1 applic TOPICAL BID PRN 12/04/20 12/04/20 History [Mycostatin Powder] Allergies Allergy/AdvReac Type Severity Reaction Status Date / Time metformin HCl Allergy "kidneys Verified 12/04/20 16:45 [From Glucophage] shut down" Surgical - Exam Vital Signs Temp Pulse Resp BP Pulse Ox 97.6 F 56 L 18 105/67 100 12/04/20 15:30 12/04/20 15:30 12/04/20 15:30 12/04/20 15:30 12/04/20 15:30 General appearance: The patient is alert, orientedto self, appears in no acute distress. HET: Head is normocephalic and atraumatic. Pupils are equal and reactive. Neck: Supple without lymphadenopathy. Trachea midline. Audible carotid bruit Heart: S1 S2. Regular rate and rhythm. Lungs: No crackles or wheezes are heard. Abdomen: Soft, nontender, nondistended with bowel sounds. Extremities: Normal skin color and turgor. No cyanosis, rash, ulceration, clubbing, or edema. Palpable bilateral radial pulses. Neurological: No focal deficits. Strength and sensation are grossly intact. Patient follows commands and answers questions appropriately. Patient has facial symmetry, tongue protrudes midline, she has equal strength bilateral upper and lower extremity. Results The duplex: Right PSV ICA 467, with a ratio of 6.7, left PSV ICA 111, ratio 1.1 with an impression stating there is 50-69% stenosis in the right internal carotid artery. CT of brain reveals a subacute to chronic lacunar stroke involving the left lower abida region. EEG: The impression read as abnormal EEG due to background slowing of mild to moderate degree. This is suggestive of generalized cerebral dysfunction as can be seen with toxic metabolic encephalopathy related to diffuse structural brain abnormality. No lip to form activity was seen. - Labs 12/04/20 16:44 12/07/20 06:33 Abnormal Lab Results - Last 24 Hours (Table) 12/05/20 12/06/20 12/06/20 Range/Units 14:09 11:35 17:03 BUN (7-17) mg/dL Creatinine (0.52-1.04) mg/dL Glucose (74-99) mg/dL POC Glucose (mg/dL) 260 H 170 H (75-99) mg/dL Methylmalonic Acid 1.09 H (<0.40) umol/L 12/06/20 12/07/20 12/07/20 Range/Units 20:13 06:33 07:05 BUN 20 H (7-17) mg/dL Creatinine 1.09 H (0.52-1.04) mg/dL Glucose 205 H (74-99) mg/dL POC Glucose (mg/dL) 175 H 216 H (75-99) mg/dL Methylmalonic Acid (<0.40) umol/L Microbiology - Last 24 Hours (Table) 12/04/20 16:44 Blood Culture - Preliminary Blood No Growth after 48 hours Diabetes panel 12/07/20 Range/Units 06:33 Sodium 138 (137-145) mmol/L Potassium 4.3 (3.5-5.1) mmol/L Chloride 105 (98-107) mmol/L Carbon Dioxide 22 (22-30) mmol/L BUN 20 H (7-17) mg/dL Creatinine 1.09 H (0.52-1.04) mg/dL Glucose 205 H (74-99) mg/dL Calcium 9.4 (8.4-10.2) mg/dL Calcium panel 12/07/20 Range/Units 06:33 Calcium 9.4 (8.4-10.2) mg/dL Pituitary panel 12/07/20 Range/Units 06:33 Sodium 138 (137-145) mmol/L Potassium 4.3 (3.5-5.1) mmol/L Chloride 105 (98-107) mmol/L Carbon Dioxide 22 (22-30) mmol/L BUN 20 H (7-17) mg/dL Creatinine 1.09 H (0.52-1.04) mg/dL Glucose 205 H (74-99) mg/dL Calcium 9.4 (8.4-10.2) mg/dL Adrenal panel 12/07/20 Range/Units 06:33 Sodium 138 (137-145) mmol/L Potassium 4.3 (3.5-5.1) mmol/L Chloride 105 (98-107) mmol/L Carbon Dioxide 22 (22-30) mmol/L BUN 20 H (7-17) mg/dL Creatinine 1.09 H (0.52-1.04) mg/dL Glucose 205 H (74-99) mg/dL Calcium 9.4 (8.4-10.2) mg/dL Assessment and Plan Assessment: 1. Right internal carotid artery stenosis, likely greater than 70% 2. Multiple TIAs, but CT of the head revealing evidence of subacute to chronic lower pontine lacunar stroke. 3. Chronic atrial fibrillation, not on anticoagulation due to frequent falls and history of hepatocellular cancer 4. Hypertension 5. Hyperlipidemia 6. Coronary artery disease Plan: She was seen and examined with Dr. Watters. Will order CT angiogram of head and neck for further evaluation of carotids. After reviewing the carotid ultrasound and is likely the patient has been greater than 70% stenosis in the right ICA. Continue with Plavix, aspirin and Lipitor. Further recommendations to follow. This consultation allowing us take part in the plan of care of your patient during her hospital stay. The impression and plan of care has been dictated as directed. Dr. Ekta Beach performed a history and examination of this patient, discussed the same with the dictator. I agree with the dictator's note ,documented as a scribe. Any additional findings or plans will be noted.
[2020-12-07 17:02] LABS: Glucose,Whole Blood 263 mg/dL (75-99)
[2020-12-07 20:35] LABS: Glucose,Whole Blood 242 mg/dL (75-99)
--- NOTE | 2020-12-07 20:55 | P.PN ---
Subjective Progress Note Date: 12/07/20 Patient is feeling much better. Offers no new complaints. Patient is laying comfortably in the bed. Denies headache. Denies any numbness tingling or focal weakness. Does have chronic left leg weakness. Telemetry monitoring showing sinus rhythm in the 70s. Objective - Vital Signs Vital signs: Vital Signs Temp 97.6 F 12/07/20 20:08 Pulse 78 12/07/20 20:08 Resp 17 12/07/20 20:08 BP 178/92 12/07/20 20:08 Pulse Ox 96 12/07/20 20:08 Intake & Output 12/07/20 12/07/20 12/08/20 06:59 18:59 06:59 Intake Total 430 200 Output Total 450 Balance -450 430 200 Weight 93.1 kg 93.1 kg Intake: IV 30 Invasive Line 2 10 Invasive Line 3 20 Oral 400 200 Output: Urine 450 Other: Voiding Method Bedside Commode Bedside Commode Bedside Commode External Catheter Diaper Diaper Incontinent Incontinent # Voids 1 2 - Exam On examination patient's mental status, speech and language functions are normal. On cranial nerve exam her pupils are round and reacting to light, visual parsons are full on confrontation, with no neglect on double simultaneous to ablation. Extraocular muscles are intact. Face is symmetric and tongue protrudes to the midline. Palatal elevation and sensation normal. Hearing and shoulder shrug normal. On muscle strength testing there is no pronator drift and the strength is normal in both arms distally and proximally. Patient's right leg is completely normal distally and proximally. Left ankle and toes are normal. Patient's left knee extension 4+, left hip flexion 4+. Sensory touch is equal with no neglect on double simultaneous depression. No ataxia for [id number] testing bilaterally. - Labs CBC & Chem 7: 12/04/20 16:44 12/07/20 06:33 Labs: Abnormal Lab Results - Last 24 Hours (Table) 12/05/20 12/07/20 12/07/20 Range/Units 14:09 06:33 07:05 BUN 20 H (7-17) mg/dL Creatinine 1.09 H (0.52-1.04) mg/dL Glucose 205 H (74-99) mg/dL POC Glucose (mg/dL) 216 H (75-99) mg/dL Methylmalonic Acid 1.09 H (<0.40) umol/L 12/07/20 12/07/20 12/07/20 Range/Units 12:03 17:00 20:32 BUN (7-17) mg/dL Creatinine (0.52-1.04) mg/dL Glucose (74-99) mg/dL POC Glucose (mg/dL) 199 H 263 H 242 H (75-99) mg/dL Methylmalonic Acid (<0.40) umol/L Microbiology - Last 24 Hours (Table) 12/04/20 16:44 Blood Culture - Preliminary Blood No Growth after 72 hours Assessment and Plan Assessment: * Recurrent falls, syncope, unclear etiology. Patient probably has tendency to fall because of chronic leg weakness from multiple left knee surgeries and left hip weakness, which probably results in buckling of the knee and falls. Patient's daughter however tells that she also passes out, therefore need further syncopal workup. * Computed tomography scan of the head revealed a subacute to chronic lacunar stroke involving the left lower abida region. This was not present in the last computed tomography scan of head from 05/08/2020, therefore may represent a subacute to chronic stroke. * Long-standing history of poorly controlled diabetes, with last hemoglobin A1c 11.7 on 01/04/2020. * Hyperlipidemia * History of B12 deficiency (normal B12 600, but elevated methylmalonic acid 0.52) Plan: * Patient appears to have much improved as compared to yesterday. Her sensory, visual examination is normal with no neglect. Patient will be continued on Plavix 75 mg daily. * Patient has multiple vascular risk factors, including poorly controlled diabetes, which needs to be addressed aggressively. She is also at risk for vascular dementia given her multiple TIAs, and poorly controlled risk factors. * Carotid Doppler revealed moderate stenosis right ICA 50-69% or higher. Consider CTA or MRA. * Vascular surgery input appreciated. CTA of head and neck revealed atheromatous plaquing right ICA without significant flow limiting stenosis. Normal [place]. * EEG was abnormal due to pdzp-sk-[id number] background slowing, consistent with encephalopathy. No epileptiform activity was seen. * 2-D echo revealed severe concentric LVH, EF is 55-60%. * B12 324, folate 10.3, MMA pending, B1 pending, hemoglobin A1c 11.0 and fasting lipid panel with cholesterol 110, LDL 48, HDL 34 and triglycerides 141. Continue statins. Patient given B12 injection 1000 g IM 1. * PT OT. * Telemetry monitoring showing sinus rhythm. * Neurologically clear for discharge.
[2020-12-07] MEDS ORDERED: amLODIPine 10 MG TAB PO SCH (21:00)
[2020-12-07] MEDS ORDERED: INSULIN DETEMIR (LEVEMIR) 100 UNIT/ML SYR SQ SCH (21:00)
[2020-12-07] MEDS: GABAPENTIN 300 MG CAP PO SCH (21:22)
[2020-12-07] MEDS: QUEtiapine 50 MG TAB PO SCH (21:28)
--- NOTE | 2020-12-08 00:12 | P.DS ---
Providers Date of admission: 12/04/20 18:38 Expected date of discharge: 12/08/20 Attending physician: Sharif Ernst Consults: 12/04/20 18:38 Consult Physician Urgent Consulting Provider: Sumit Escobar Consult Reason/Comments: syncope Do you want consulting provider notified?: Yes 12/04/20 18:39 Consult Physician Urgent Consulting Provider: Leonora Parisi Consult Reason/Comments: ams Do you want consulting provider notified?: Yes 12/06/20 14:53 Consult Physician Routine Consulting Provider: Jl Palmer Consult Reason/Comments: Recurrent syncope, 50-69% right ICA stenosis (possibly higher), per CD Do you want consulting provider notified?: Yes Primary care physician: Amanuel Wilkinson MD Hospital Course: Chief Complaint: Falls Consultation: This is a 70-year-old patient of visiting physician Dr. Amanuel Smith. 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 Patient is to the Dr. Joaquin. Daughter brought the patient for multiple issues. Patient has a bedside commode. Does not walk any. Last 3 days has fallen down about 7 times. Noted to have increasing confusion. Patient's oral intake is variable. Patient's chronic pain all over. Also, no stability. Has been becoming more forgetful. The patient is able to answer simple questions and recognize her daughter etc. No fever no chills. She did have a sandwich this evening. Admitted with-delirium acute metabolic encephalopathy. Acute kidney injury prerenal. Patient insulin was cut back. Lopressor was stopped because of bradycardia. Norvasc was increased. Fentanyl patch was cut back to 25 g an hour. Also Neurontin dose was cut back in the setting of acute kidney injury. Sleep hygiene was instituted. Seroquel was added at night. Carotid Doppler shows about 50-69% stenosis. Some plaques. CT angiography neck did not show any significant stenosis. Today-stable. CT angiography of the neck was done today. Seen by Dr. Watters from vascular. Patient stable for discharge will be discharged tomorrow morning. Arrangements are being made. Discussion and discharge planning more than 35 minutes Past medical history to include: Atrial fibrillation, diabetes mellitus, hypertension, hyperlipidemia, hepato- cellular carcinoma in remission after 1 dose of chemotherapy, spinal stenosis, DJD including lumbar spine, diabetic peripheral neuropathy, hyperactive bladder, septic left knee joint, restless leg syndrome, coronary artery disease with stent Social history: This with Dr. Joqauin . Mostly uses a wheelchair. Patient's daughter is to [facility]. No history of smoking or alcohol. Physical examination: VITAL SIGNS: 97.6, 67, 18, 166/92, 96% on room air GENERAL: BMI 32.6, laying in bed, awake EYES: Pupils equal. Conjunctiva normal. HEENT: External appearance of nose and ears normal, oral cavity grossly normal. NECK: JVD not raised; masses not palpable. HEART: First and second heart sounds are normal; no edema. LUNGS: Respiratory rate normal; distant breath sounds. ABDOMEN: Soft, nontender, liver spleen not palpable, no masses palpable. PSYCH: Able to answer simple questions. NEUROLOGICAL: Cranial nerves grossly intact; no facial asymmetry, power and sensation grossly intact. INVESTIGATIONS, reviewed in the clinical context: November 29: Bun 20 creatinine 1.09 December 06: LDL 48 B12 324 folate-10.3. Accu-Cheks 137, 140 EEG-background slowing of [id number] degree. No seizure activity. December 05: Potassium 4 creatinine 1.17 white of B12 324 Carotid Doppler-moderate to severe amount of block in the right bulb. Hemodynamic significant stenosis of the proximal left ICA on the right. 2-D echocardiogram-here 55-60%, severe concentric LVH White count 15.6 hemoglobin 13.3 platelets 298 potassium 5.2 bun 20 creatinine 1.24 UA positive for leukoesterase, bacteria Previous testing: Potassium 4.6 bun 17 creatinine 0.69 on May 2020 Assessment: -Acute delirium from contribution of patient being on Neurontin, fentanyl the setting of acute kidney injury-improving, fentanyl and Neurontin) have been cut back. Fentanyl was discontinued. -Paroxysmal atrial fibrillation currently in sinus rhythm -Multiple falls likely from delirium/metabolic encephalopathy -Acute kidney injury likely prerenal from decreased oral intake-improving -Coronary artery disease with a history of stent -Diabetes mellitus type 2 on oral hypoglycemic -Essential hypertension -Hyperlipidemia -Hiatal hernia -DJD -Diabetic peripheral neuropathy -Chronic gait dysfunction uses a wheelchair at baseline -Restless leg syndrome -Obesity BMI 32.6 -Acute UTI with cystitis -Moderate to severe cognitive impairment -Nonobstructive coronary artery disease Disposition: Home in the morning. Discharge paperwork done. manager of school to coordinate any DC needs Plan - Discharge Summary Discharge Rx Participant: No New Discharge Prescriptions: New amLODIPine [Norvasc] 10 mg PO HS #30 tablet QUEtiapine [SEROquel] 50 mg PO HS #30 tab Lisinopril-Hctz 10-12.5 mg [Zestoretic 10-12.5] 1 tab PO DAILY #30 tab Continue Solifenacin Succinate [Vesicare] 10 mg PO HS Pantoprazole Sodium 40 mg PO DAILY Ondansetron [Zofran] 4 mg PO Q8H PRN PRN Reason: Nausea bisacodyL [Dulcolax] 5 mg PO QAM Venlafaxine HCl [Effexor] 150 mg PO HS Venlafaxine HCl [Effexor] 75 mg PO QAM Aspirin [Adult Low Dose Aspirin EC] 81 mg PO DAILY rOPINIRole HCL [Requip] 0.25 mg PO HS PRN PRN Reason: RESTLESS LEGS INSULIN ASPART (NovoLOG) [NovoLOG (formulary)] See Protocol SQ AC-TID Ferrous Gluconate 324 mg PO DAILY Nystatin 100,000 Unit/gm Powd [Mycostatin Powder] 1 applic TOPICAL BID PRN PRN Reason: Rash Ergocalciferol (Vitamin D2) [Vitamin D2 (2000 Iu)] 50 mcg PO DAILY Calcium Carbonate [Calcium] 600 mg PO DAILY Atorvastatin [Lipitor] 40 mg PO DAILY Insulin Glargine,Hum.rec.anlog [Lantus Solostar] 30 unit SQ HS #0 Changed Gabapentin [Neurontin] 300 mg PO HS #3 cap INSULIN ASPART (NovoLOG) [NovoLOG (formulary)] 8 unit SQ AC-TID #0 Discontinued amLODIPine [Norvasc] 5 mg PO DAILY #30 tab Gabapentin [Neurontin] 600 mg PO HS Metoprolol Tartrate 25 mg PO BID fentaNYL 50MCG/HR PATCH [Duragesic 50MCG/HR] 1 patch TRANSDERM Q72H #1 patch ALPRAZolam [Xanax] 0.5 mg PO BID PRN #6 tab PRN Reason: Anxiety Insulin Glargine,Hum.rec.anlog [Lantus Solostar] 16 unit SQ DAILY No Action Nitrofurantoin Monohyd/M-Cryst [Macrobid] 100 mg PO BID Discharge Medication List Pantoprazole Sodium 40 mg PO DAILY 08/10/14 [History] Solifenacin Succinate [Vesicare] 10 mg PO HS 08/10/14 [History] Ondansetron [Zofran] 4 mg PO Q8H PRN 03/26/16 [History] Venlafaxine HCl [Effexor] 75 mg PO QAM 05/18/17 [History] Venlafaxine HCl [Effexor] 150 mg PO HS 05/18/17 [History] bisacodyL [Dulcolax] 5 mg PO QAM 05/18/17 [History] Aspirin [Adult Low Dose Aspirin EC] 81 mg PO DAILY 09/14/18 [History] rOPINIRole HCL [Requip] 0.25 mg PO HS PRN 06/06/19 [History] INSULIN ASPART (NovoLOG) [NovoLOG (formulary)] See Protocol SQ AC-TID 12/09/19 [History] Ferrous Gluconate 324 mg PO DAILY 05/08/20 [History] Atorvastatin [Lipitor] 40 mg PO DAILY 12/04/20 [History] Calcium Carbonate [Calcium] 600 mg PO DAILY 12/04/20 [History] Ergocalciferol (Vitamin D2) [Vitamin D2 (2000 Iu)] 50 mcg PO DAILY 12/04/20 [History] Nitrofurantoin Monohyd/M-Cryst [Macrobid] 100 mg PO BID 12/04/20 [History] Nystatin 100,000 Unit/gm Powd [Mycostatin Powder] 1 applic TOPICAL BID PRN 12/04/20 [History] Gabapentin [Neurontin] 300 mg PO HS #3 cap 12/07/20 [Rx] INSULIN ASPART (NovoLOG) [NovoLOG (formulary)] 8 unit SQ AC-TID #0 12/07/20 [Rx] Insulin Glargine,Hum.rec.anlog [Lantus Solostar] 30 unit SQ HS #0 12/07/20 [Rx] Lisinopril-Hctz 10-12.5 mg [Zestoretic 10-12.5] 1 tab PO DAILY #30 tab 12/07/20 [Rx] QUEtiapine [SEROquel] 50 mg PO HS #30 tab 12/07/20 [Rx] amLODIPine [Norvasc] 10 mg PO HS #30 tablet 12/07/20 [Rx] Follow up Appointment(s)/Referral(s): [facility], [NON-STAFF] - Amanuel Wilkinson MD [Primary Care Provider] - 1-2 days
[2020-12-08 00:16] VITALS: RESP 18
[2020-12-08 06:12] LABS: Glucose,Whole Blood 179 mg/dL (75-99)
[2020-12-08] MEDS: PANTOPRAZOLE 40 MG TABLET PO SCH ×2 (06:20→08:32)
[2020-12-08] MEDS: INSULIN ASPART (NovoLOG) 100 UNIT/ML VIAL SQ SCH ×4 (06:52→12:38)
[2020-12-08] MEDS: ENOXAPARIN 40 MG/0.4 ML SYRINGE SQ SCH (08:31)
[2020-12-08] MEDS: VENLAFAXINE HCL 75 MG TAB PO SCH (08:31)
[2020-12-08] MEDS: NITROFURANTOIN MONOHYD/M-CRYST 100 MG CAP PO SCH (08:31)
[2020-12-08] MEDS: FERROUS SULFATE 325 MG TAB PO SCH (08:31)
[2020-12-08] MEDS: CLOPIDOGREL 75 MG TAB PO SCH (08:32)
[2020-12-08] MEDS: ATORVASTATIN 40 MG TAB PO SCH (08:32)
[2020-12-08] MEDS ORDERED: LISINOPRIL-HCTZ 10-12.5 MG 1 EACH TAB PO SCH (09:00)
[2020-12-08 12:33] LABS: Glucose,Whole Blood 314 mg/dL (75-99)
--- NOTE | 2020-12-08 13:01 | P.PN ---
Subjective Progress Note Date: 12/08/20 Principal diagnosis: TIA, carotid stenosis She was seen and examined lying in bed. She denies any focal deficits. There've been no acute changes through the night. Plan is for discharge home today. CT angiogram of head and neck was ordered yesterday which showed advanced degenerative disc change cervical spine, atheromatous plaquing right internal carotid artery without significant flow-limiting stenosis, normal variation [place]. Objective - Vital Signs Vital signs: Vital Signs Temp 98.2 F 12/08/20 03:43 Pulse 72 12/08/20 03:43 Resp 18 12/08/20 03:43 BP 158/90 12/08/20 03:43 Pulse Ox 94 L 12/08/20 03:43 Intake & Output 12/07/20 12/08/20 12/08/20 18:59 06:59 18:59 Intake Total 430 440 Output Total 400 Balance 430 40 Weight 93.1 kg 97 kg Intake: IV 30 Invasive Line 2 10 Invasive Line 3 20 Oral 400 440 Output: Urine 400 Other: Voiding Method Bedside Commode Bedside Commode Diaper Diaper Incontinent Incontinent # Voids 2 1 # Bowel Movements 1 - Exam General appearance: The patient is alert, oriented, in no acute distress. HET: Head is normocephalic and atraumatic. Pupils are equal and reactive. EOM intact. Neck: Supple without lymphadenopathy. Trachea midline. No carotid bruit noted Heart: S1 S2. Regular rate and rhythm. Lungs: No crackles or wheezes are heard. Abdomen: Soft, nontender, nondistended. Extremities: Normal skin color and turgor. Multiple bilateral radial and dorsalis pedis pulses. Neurological: No focal deficits. Strength and sensation are grossly intact. - Labs CBC & Chem 7: 12/04/20 16:44 12/07/20 06:33 Labs: Abnormal Lab Results - Last 24 Hours (Table) 12/07/20 12/07/20 12/07/20 Range/Units 12:03 17:00 20:32 POC Glucose (mg/dL) 199 H 263 H 242 H (75-99) mg/dL 12/08/20 Range/Units 06:08 POC Glucose (mg/dL) 179 H (75-99) mg/dL Microbiology - Last 24 Hours (Table) 12/04/20 16:44 Blood Culture - Preliminary Blood No Growth after 72 hours Assessment and Plan Assessment: 1. Right internal carotid artery stenosis, likely greater than 70%. Coronary findings between carotid duplex and CT angiogram of head and neck. 2. Multiple TIAs, but CT of the head revealing evidence of subacute to chronic lower pontine lacunar stroke. 3. Chronic atrial fibrillation, not on anticoagulation due to frequent falls and history of hepatocellular cancer 4. Hypertension 5. Hyperlipidemia 6. Coronary artery disease Plan: CT angiogram head and neck reviewed by Dr. Evans. Patient may be discharged home from a vascular surgical standpoint with close follow-up within the next 1- 2 weeks and will need a cath directed angiogram because of discordant findings between carotid ultrasound and CT angiogram results. Continue aspirin, Plavix, and Lipitor. Dr. Evans will call the patient's family discussed plan of care with them as well. The impression and plan of care has been dictated as directed. Dr. Evans I performed a history and examination of this patient, discussed the same with the dictator. I agree with the dictator's note ,documented as a scribe. Any additional findings or plans will be noted.
[2020-12-08 13:22] VITALS: BP 138/72; PULSE 76; TEMP 98.2
== END 2020-12-08 16:50 | disposition home health service (06) | DRG 92 ==
LOC: EC 15:29 → 3SCARD 18:38
PROVIDERS: ADMIT Hospitalist; ATTEND Hospitalist
DX: G92 Toxic encephalopathy (principal); N17.9 Acute kidney failure, unspecified; F05 Delirium due to known physiological condition; R29.810 Facial weakness; R29.6 Repeated falls; N32.81 Overactive bladder; N30.90 Cystitis, unspecified without hematuria; M19.90 Unspecified osteoarthritis, unspecified site; I48.0 Paroxysmal atrial fibrillation; I25.10 Atherosclerotic heart disease of native coronary artery without angina pectoris; I10 Essential (primary) hypertension; E78.5 Hyperlipidemia, unspecified; F32.9 Major depressive disorder, single episode, unspecified; F41.9 Anxiety disorder, unspecified; G25.81 Restless legs syndrome; K44.9 Diaphragmatic hernia without obstruction or gangrene; M48.061 Spinal stenosis, lumbar region without neurogenic claudication; R26.9 Unspecified abnormalities of gait and mobility; E11.42 Type 2 diabetes mellitus with diabetic polyneuropathy; E86.0 Dehydration; E66.9 Obesity, unspecified; I65.21 Occlusion and stenosis of right carotid artery; Z96.653 Presence of artificial knee joint, bilateral; R41.89 Other symptoms and signs involving cognitive functions and awareness; E11.65 Type 2 diabetes mellitus with hyperglycemia; G89.29 Other chronic pain; I49.1 Atrial premature depolarization; T42.6X5A Adverse effect of other antiepileptic and sedative-hypnotic drugs, initial encounter; Z90.710 Acquired absence of both cervix and uterus; Z86.73 Personal history of transient ischemic attack (TIA), and cerebral infarction without residual deficits; Z85.05 Personal history of malignant neoplasm of liver; Z82.49 Family history of ischemic heart disease and other diseases of the circulatory system; Z79.899 Other long term (current) drug therapy; Z79.82 Long term (current) use of aspirin; Z79.4 Long term (current) use of insulin; Z79.01 Long term (current) use of anticoagulants; Z68.32 Body mass index [BMI] 32.0-32.9, adult; Z88.8 Allergy status to other drugs, medicaments and biological substances; Z86.14 Personal history of Methicillin resistant Staphylococcus aureus infection; Z90.49 Acquired absence of other specified parts of digestive tract; Z90.89 Acquired absence of other organs; Z98.890 Other specified postprocedural states; Z95.5 Presence of coronary angioplasty implant and graft
CPT/HCPCS: 36415; 70450; 70496; 70498; 71046; 80048; 80053; 80061; 81001; 82550; 82607; 82746; 83036; 83605; 83735; 83921; 84425; 84484; 85025; 85610; 87040; 93005; 93306; 93880; 95816; 96361; 96374; 99285

== ENCOUNTER 2020-12-23 23:25 | Inpatient (IN) | payer MEDICARE, OTHER ==
--- NOTE | 2020-12-23 23:49 | ED ---
Chest Pain HPI - General Chief Complaint: Chest Pain Stated Complaint: Chest Pain Time Seen by Provider: 12/23/20 23:31 Source: patient, family Mode of arrival: wheelchair Limitations: no limitations - Related Data Home Medications Medication Instructions Recorded Confirmed Pantoprazole Sodium 40 mg PO DAILY 08/10/14 12/04/20 Solifenacin Succinate [Vesicare] 10 mg PO HS 08/10/14 12/04/20 Ondansetron [Zofran] 4 mg PO Q8H PRN 03/26/16 12/04/20 Venlafaxine HCl [Effexor] 75 mg PO QAM 05/18/17 12/04/20 Venlafaxine HCl [Effexor] 150 mg PO HS 05/18/17 12/04/20 bisacodyL [Dulcolax] 5 mg PO QAM 05/18/17 12/04/20 Aspirin [Adult Low Dose Aspirin EC] 81 mg PO DAILY 09/14/18 12/04/20 rOPINIRole HCL [Requip] 0.25 mg PO HS PRN 06/06/19 12/04/20 INSULIN ASPART (NovoLOG) [NovoLOG See Protocol SQ AC-TID 12/09/19 12/04/20 (formulary)] Ferrous Gluconate 324 mg PO DAILY 05/08/20 12/04/20 Atorvastatin [Lipitor] 40 mg PO DAILY 12/04/20 12/04/20 Calcium Carbonate [Calcium] 600 mg PO DAILY 12/04/20 12/04/20 Ergocalciferol (Vitamin D2) 50 mcg PO DAILY 12/04/20 12/04/20 [Vitamin D2 (2000 Iu)] Nitrofurantoin Monohyd/M-Cryst 100 mg PO BID 12/04/20 12/04/20 [Macrobid] Nystatin 100,000 Unit/gm Powd 1 applic TOPICAL BID PRN 12/04/20 12/04/20 [Mycostatin Powder] Previous Rx's Medication Instructions Recorded Gabapentin [Neurontin] 300 mg PO HS #3 cap 12/07/20 INSULIN ASPART (NovoLOG) [NovoLOG 8 unit SQ AC-TID #0 12/07/20 (formulary)] Insulin Glargine,Hum.rec.anlog 30 unit SQ HS #0 12/07/20 [Lantus Solostar] Lisinopril-Hctz 10-12.5 mg 1 tab PO DAILY #30 tab 12/07/20 [Zestoretic 10-12.5] QUEtiapine [SEROquel] 50 mg PO HS #30 tab 12/07/20 amLODIPine [Norvasc] 10 mg PO HS #30 tablet 12/07/20 Allergies Allergy/AdvReac Type Severity Reaction Status Date / Time metformin HCl Allergy "kidneys Verified 12/23/20 23:31 [From Glucophage] shut down" Review of Systems ROS Statement: Those systems with pertinent positive or pertinent negative responses have been documented in the HPI. ROS Other: All systems not noted in ROS Statement are negative. EKG Findings - EKG Comments: EKG Findings:: EKG shows sinus bradycardia rate of 57, MN 196 QRS 92 QTC 437 Past Medical History Past Medical History: Atrial Fibrillation, Cancer, CVA/TIA, Diabetes Mellitus, Hyperlipidemia, Hypertension Additional Past Medical History / Comment(s): Hepatocellular carcinoma (in remission), had one dose of chemo 2015, TIA X4, hiatal hernia, spinal stenosis, degenerative disc disease involving L3 and L4, diabetic peripheral neuropathy, hyperactive bladder, history of septic left knee joint post arthroplasty. restless leg syndrome. History of Any Multi-Drug Resistant Organisms: MRSA Date of last positivie culture/infection: 2010 MDRO Source:: Left knee Past Surgical History: Adenoidectomy, Bariatric Surgery, Cholecystectomy, Heart Catheterization With Stent, Hernia Repair, Hysterectomy, Joint Replacement, Orthopedic Surgery, Tonsillectomy Additional Past Surgical History / Comment(s): Lap band placed in 2003, prolapsed & removed in 2005, neuro stimulator in back, one stent to LAD, left knee arthroscopic surgery, right total knee arthroplasty, left total knee arthroplasty 10/01/2011, repair of quadriceps tendon 08/21/2011, left knee patellar tendon repair 09/24/2011, removal of the hardware of the left total knee arthroplasty with implantation of the antibiotic spacer October 08 2011, total left knee hardware replacement in May 2012,. trigger finger, left hand in 2003 with subsequent reversal in 2005. Uses a walker or wheelchair Past Anesthesia/Blood Transfusion Reactions: No Reported Reaction Date of Last Stent Placement:: 05/17/2010 Past Psychological History: Anxiety, Depression Smoking Status: Never smoker Past Alcohol Use History: None Reported Past Drug Use History: None Reported - Past Family History Mother Family Medical History: Congestive Heart Failure (CHF) Father Family Medical History: Myocardial Infarction ([place]) Additional Family Medical History / Comment(s): Father at the age of 59 yrs from [place] General Exam Limitations: no limitations Course Vital Signs 12/23/20 12/24/20 23:27 00:30 Temperature 97.6 F Pulse Rate 71 83 Respiratory 18 16 Rate Blood Pressure 193/72 133/62 O2 Sat by Pulse 98 97 Oximetry - Reevaluation(s) Reevaluation #1: 12/24/20 01:48 medical record is reviewed Reevaluation #2: 12/24/20 01:48 Patient's chest pain remains improved throughout emergency department stay Reevaluation #3: 12/24/20 01:49 Patient family informed results questions are answered - Consultations Consultation #1: Spoke with Dr. Ernst agrees for admission Chest Pain MDM - Differential Diagnosis ACS - MDM 70 female to the ER for evaluation but does present today for evaluation right chest pain. Patient is found to be significantly hyperglycemic improved here in the ER, elevated troponin still patient does have non-ST elevated CO patient be admitted for cardiology evaluation, supportive care Critical Care Time Critical Care Time: Yes Total Critical Care Time: 31 Disposition Clinical Impression: Diabetes mellitus, Hyperglycemia, Dehydration Disposition: ADMITTED IP TO THIS HOSP Condition: Fair Is patient prescribed a controlled substance at d/c from ED?: No Referrals: Amanuel Wilkinson MD [Primary Care Provider] - 1-2 days
--- NOTE | 2020-12-24 00:23 | XR ---
EXAM: XR Chest, 2 Views CLINICAL HISTORY: ITS.REASON XR Reason: Chest Pain TECHNIQUE: Frontal and lateral views of the chest. COMPARISON: 12/04/2020. FINDINGS: Lungs: No consolidative changes per Pleural space: No pleural effusions. No pneumothorax. Heart: Cardiomediastinal silhouette unremarkable. Mediastinum: See above. Bones/joints: Osteopenia. Vasculature: Minimal atherosclerotic disease of the aortic knob. Other findings: Mild hypoaeration, similar to the previous study. IMPRESSION: 1. No active disease, similar to the previous study. 2. Mild hypoaeration. 3. Osteopenia.
[2020-12-24] MEDS ORDERED: MORPHINE SULFATE 4 MG/ML SYRINGE IVP STA (00:36)
[2020-12-24 00:48] LABS: Albumin 3.9 g/dL (3.5-5.0); Calcium 9.4 mg/dL (8.4-10.2); Magnesium 2.1 mg/dL (1.6-2.3); Potassium 4.8 mmol/L (3.5-5.1); Total Bilirubin 0.4 mg/dL (0.2-1.3); Total Protein 7.3 g/dL (6.3-8.2)
[2020-12-24 00:51] LABS: INR 0.9 (<1.2); Prothrombin Time 9.6 sec (9.0-12.0)
[2020-12-24 00:59] LABS: Creatine Kinase MB 0.9 ng/mL (0.0-2.4)
[2020-12-24 01:08] LABS: Troponin I 0.061 ng/mL (0.000-0.034)
[2020-12-24 01:12] LABS: Partial Thromboplastin Time 21.8 sec (22.0-30.0)
[2020-12-24 01:14] LABS: Basophils # (A) 0.1 k/uL (0-0.2); Basophils % (A) 1 %; Eosinophils # (A) 0.1 k/uL (0-0.7); Eosinophils % (A) 1 %; HCT 45.5 % (34.0-46.0); HGB 13.8 gm/dL (11.4-16.0); Hypochromasia Moderate; Lymphocytes # (A) 2.3 k/uL (1.0-4.8); Lymphocytes % (A) 15 %; MCH 27.6 pg (25.0-35.0); MCHC 30.4 g/dL (31.0-37.0); Mean Platelet Volume 9.9; Monocytes # (A) 0.5 k/uL (0-1.0); Monocytes % (A) 3 %; Neutrophils # (A) 12.6 k/uL (1.3-7.7); Neutrophils % (A) 80 %; Platelet Count 451 k/uL (150-450); RBC 5.01 m/uL (3.80-5.40); RDW 13.1 % (11.5-15.5); WBC 15.8 k/uL (3.8-10.6)
[2020-12-24 01:15] LABS: MCV 90.9 fL (80.0-100.0)
[2020-12-24] MEDS ORDERED: MORPHINE SULFATE 4 MG/ML SYRINGE IV PRN (01:45)
[2020-12-24] MEDS ORDERED: HEPARIN SODIUM,PORCINE 5,000 UNIT/ML 1 ML VIAL IV ONE (01:45)
[2020-12-24] MEDS ORDERED: HEPARIN SOD,PORK IN 0.45% NACL 25,000 UNIT in 0.45% NACL 1 250ML.BAG IV SCH (01:45)
[2020-12-24] MEDS ORDERED: NITROGLYCERIN SL TABS 0.4 MG TAB SUBLINGUAL PRN (01:45)
[2020-12-24] MEDS ORDERED: HEPARIN SODIUM,PORCINE 5,000 UNIT/ML 1 ML VIAL IV PRN (01:45)
[2020-12-24] MEDS ORDERED: ASPIRIN 81 MG PO STA (01:45)
[2020-12-24] MEDS ORDERED: HYDROmorphone 1 MG/ML 1 ML SYRINGE IVP STA (01:58)
[2020-12-24] MEDS ORDERED: INSULIN REGULAR 100 UNIT/ML VIAL IV ONE (02:21)
[2020-12-24 02:59] LABS: Glucose,Whole Blood 493 mg/dL (75-99)
[2020-12-24 05:59] LABS: Glucose,Whole Blood 383 mg/dL (75-99)
[2020-12-24] MEDS: INSULIN ASPART (NovoLOG) 100 UNIT/ML VIAL SQ SCH ×5 (06:40→20:50)
[2020-12-24 08:17] LABS: Basophils # (A) 0.1 k/uL (0-0.2); Basophils % (A) 1 %; Eosinophils # (A) 0.2 k/uL (0-0.7); Eosinophils % (A) 1 %; HCT 38.6 % (34.0-46.0); HGB 12.2 gm/dL (11.4-16.0); Lymphocytes # (A) 4.3 k/uL (1.0-4.8); Lymphocytes % (A) 27 %; MCH 27.3 pg (25.0-35.0); MCHC 31.7 g/dL (31.0-37.0); MCV 86.2 fL (80.0-100.0); Monocytes # (A) 0.6 k/uL (0-1.0); Monocytes % (A) 4 %; Neutrophils # (A) 10.8 k/uL (1.3-7.7); Neutrophils % (A) 67 %; Platelet Count 353 k/uL (150-450); RBC 4.47 m/uL (3.80-5.40); RDW 13.1 % (11.5-15.5); WBC 16.1 k/uL (3.8-10.6)
[2020-12-24] MEDS: ATORVASTATIN 80 MG TAB PO SCH (08:18)
[2020-12-24] MEDS: METOPROLOL TARTRATE 25 MG TAB PO SCH ×2 (08:18→23:31)
[2020-12-24 08:39] LABS: Calcium 9.2 mg/dL (8.4-10.2); Potassium 4.1 mmol/L (3.5-5.1)
[2020-12-24] MEDS ORDERED: ONDANSETRON 4 MG TAB PO PRN (09:15)
[2020-12-24] MEDS ORDERED: NYSTATIN 100,000 UNIT/GM POWD 15 GM TOPICAL PRN (09:15)
[2020-12-24] MEDS ORDERED: ACETAMINOPHEN TAB 325 MG TAB PO PRN ×2 (09:19→09:55)
--- NOTE | 2020-12-24 09:20 | P.CRDCN ---
History of Present Illness Consult date: 12/24/20 Requesting physician: Sharif Ernst Reason for Consult (text): Non-ST elevation RI Chief complaint: Chest heaviness and back pain History of present illness: This is a pleasant 70-year-old female patient who is somewhat of a poor historian. She apparently does not follow regularly with the surgical services director. She has a history of hypertension, hyperlipidemia, diabetes, CAD with prior stenting of the LAD in 2009, paroxysmal atrial fibrillation not on anticoagulation due to frequent falls, near syncope with falls at home for which she was hospitalized in November of this year and workup was unremarkable. She also sustained a fall and October 2020 at which time she ended up with a reamer fracture and subsequent surgical intervention. At that time she did have bradycardia and her beta lupe was decreased. She presented with complaints of chest heaviness with sharp back pain located in the center of her back between her shoulder blades with some difficulty breathing at the time. This occurred after shopping at [employer]. According to the patient the pain lasted about an hour and returned a few times since presentation to the emergency department but she has been chest pain-free since arrival to telemetry unit. Laboratory values were reviewed and showed elevated white blood cell count at 15,800, sodium 129, BUN 33, creatinine 1.59 which is up from her baseline, glucose of 718 on admission, NT proBNP of 277 and troponins elevated at 0.061, 0.394 1.35. EKG on admission shows sinus bradycardia, heart rate 57, some artifact but no clear evidence of ischemia. Vital signs have been relatively stable with a couple spikes in the blood pressure up to 190s over 80s. She has been initiated on aspirin 325 mg by mouth daily, Lipitor 80 mg by mouth daily, metoprolol tartrate 25 mg by mouth twice a day and heparin drip. Upon review of medical records she did undergo ultrasound of the carotids in November which showed hemodynamic significant stenosis of the right proximal internal carotid artery with findings corresponding to at least 50-69% diameter reduction and possibly higher. CTA of the head and neck revealed atheromatous plaquing right internal carotid artery without significant flow-limiting stenosis. Echocardiogram at that time showed normal LV systolic function with an ejection fraction of 55-60%, trace MR, trace TR . She does have a history of cardiomyopathy with an echocardiogram in 2013 showing an ejection fraction of 30-35%. Upon examination, patient is resting comfortably in bed with head of bed flat. She denies current complaints of chest heaviness or back pain. She has no current complaints of shortness of breath, dizziness, lightheadedness, palpitations, orthopnea or PND. Has had no diaphoresis and no nausea. Past Medical History Past Medical History: Atrial Fibrillation, Cancer, CVA/TIA, Diabetes Mellitus, Hyperlipidemia, Hypertension Additional Past Medical History / Comment(s): Hepatocellular carcinoma (in remission), had one dose of chemo 2014, TIA X4, hiatal hernia, spinal stenosis, degenerative disc disease involving L3 and L4, diabetic peripheral neuropathy, h yperactive bladder, history of septic left knee joint post arthroplasty. restless leg syndrome. patient states [facility] comes out 2x/week 12/31 History of Any Multi-Drug Resistant Organisms: MRSA Date of last positivie culture/infection: 2010 MDRO Source:: Left knee Past Surgical History: Adenoidectomy, Bariatric Surgery, Cholecystectomy, Heart Catheterization With Stent, Hernia Repair, Hysterectomy, Joint Replacement, Orthopedic Surgery, Tonsillectomy Additional Past Surgical History / Comment(s): Lap band placed in 2003, prolapsed & removed in 2005, neuro stimulator in back, one stent to LAD, left knee arthroscopic surgery, right total knee arthroplasty, left total knee arthroplasty 10/01/2011, repair of quadriceps tendon 08/21/2011, left knee lynne lar tendon repair 09/24/2011, removal of the hardware of the left total knee arthroplasty with implantation of the antibiotic spacer October 08 2011, total left knee hardware replacement in May 2012,. trigger finger, left hand in 2003 with subsequent reversal in 2005. Uses a walker or wheelchair Past Anesthesia/Blood Transfusion Reactions: No Reported Reaction Date of Last Stent Placement:: 05/17/2010 Past Psychological History: Anxiety, Depression Additional Psychological History / Comment(s): Pt resides with her Sonam cruz and her son in law. She ambulates rarely with a walker, mostly is in a wheelchair. Pt feeds herself. Sonam Cruz is pt's DPOA and caregiver. No home care used. Smoking Status: Never smoker Past Alcohol Use History: None Reported Past Drug Use History: None Reported - Past Family History Mother Family Medical History: Congestive Heart Failure (CHF) Father Family Medical History: Myocardial Infarction ([place]) Additional Family Medical History / Comment(s): Father at the age of 59 yrs from [place] Medications and Allergies Home Medications Medication Instructions Recorded Confirmed Type Pantoprazole Sodium 40 mg PO DAILY 08/10/14 12/24/20 History Solifenacin Succinate [Vesicare] 10 mg PO HS 08/10/14 12/24/20 History Ondansetron [Zofran] 4 mg PO Q8H PRN 03/26/16 12/24/20 History Venlafaxine HCl [Effexor] 75 mg PO QAM 05/18/17 12/24/20 History Venlafaxine HCl [Effexor] 150 mg PO HS 05/18/17 12/24/20 History bisacodyL [Dulcolax] 5 mg PO QAM 05/18/17 12/24/20 History Aspirin [Adult Low Dose Aspirin EC] 81 mg PO DAILY 09/14/18 12/24/20 History rOPINIRole HCL [Requip] 0.25 mg PO HS PRN 06/06/19 12/24/20 History INSULIN ASPART (NovoLOG) [NovoLOG See Protocol SQ AC-TID 12/09/19 12/24/20 History (formulary)] Ferrous Gluconate 324 mg PO DAILY 05/08/20 12/24/20 History Atorvastatin [Lipitor] 40 mg PO DAILY 12/04/20 12/24/20 History Calcium Carbonate [Calcium] 600 mg PO DAILY 12/04/20 12/24/20 History Ergocalciferol (Vitamin D2) 50 mcg PO DAILY 12/04/20 12/24/20 History [Vitamin D2 (2000 Iu)] Nystatin 100,000 Unit/gm Powd 1 applic TOPICAL BID PRN 12/04/20 12/24/20 History [Mycostatin Powder] Gabapentin [Neurontin] 300 mg PO HS #3 cap 12/07/20 12/24/20 Rx Insulin Glargine,Hum.rec.anlog 30 unit SQ HS #0 12/07/20 12/24/20 Rx [Lantus Solostar] Lisinopril-Hctz 10-12.5 mg 1 tab PO DAILY #30 tab 12/07/20 12/24/20 Rx [Zestoretic 10-12.5] QUEtiapine [SEROquel] 50 mg PO HS #30 tab 12/07/20 12/24/20 Rx amLODIPine [Norvasc] 10 mg PO HS #30 tablet 12/07/20 12/24/20 Rx Allergies Allergy/AdvReac Type Severity Reaction Status Date / Time metformin HCl Allergy "kidneys Verified 12/24/20 08:46 [From Glucophage] shut down" Physical Exam Vitals: Vital Signs Temp Pulse Pulse Resp BP BP Pulse Ox 12/24/20 08:00 98.4 F 73 18 122/59 94 L 12/24/20 04:00 73 17 119/78 98 12/24/20 03:40 97.8 F 75 18 191/86 98 12/24/20 02:00 100 16 118/65 95 12/24/20 00:30 83 16 133/62 97 12/23/20 23:27 97.6 F 71 18 193/72 98 Intake and Output 12/23/20 12/24/20 12/24/20 22:59 06:59 14:59 Other: # Voids 1 Weight 89.8 kg PHYSICAL EXAMINATION: This is a 70-year-old female in no apparent distress at the time of my examination. VITAL SIGNS: Blood pressure 122/59, heart rate 73, respirations 18, temp 98.4F. Patient is 94 % on room air. HEENT: Head is atraumatic, normocephalic. Pupils are equal, round. Sclerae anicteric. Conjunctivae are clear. Mucous membranes of the mouth are moist. Neck is supple. There is no elevated jugular venous pressure. No carotid bruit is heard. CHEST EXAMINATION: Clear to auscultation bilaterally. No wheezes rales or rhonchi. Respirations even and nonlabored. HEART EXAMINATION: Heart regular, positive S1 and S2. No S3. No S4. No clic ks, rubs or murmurs. ABDOMEN: Soft, nontender. Bowel sounds are heard. No organomegaly noted. EXTREMITIES: 2+ peripheral pulses with no evidence of peripheral edema and no calf tenderness noted. NEUROLOGIC EXAMINATION: Patient is awake, alert and oriented x3. Results 12/24/20 07:10 12/24/20 07:10 Cardiac Enzymes 12/23/20 12/23/20 12/24/20 Range/Units 23:59 23:59 02:13 AST 20 (14-36) U/L CK-MB (CK-2) 0.9 (0.0-2.4) ng/mL Troponin I 0.061 H* 0.394 H* (0.000-0.034) ng/mL 12/24/20 Range/Units 07:10 AST (14-36) U/L CK-MB (CK-2) (0.0-2.4) ng/mL Troponin I 1.350 H* (0.000-0.034) ng/mL Coagulation 12/23/20 12/24/20 12/24/20 Range/Units 23:59 02:13 07:10 PT 9.6 (9.0-12.0) sec APTT 21.8 L 59.8 H 41.8 H (22.0-30.0) sec CBC 12/23/20 12/24/20 Range/Units 23:59 07:10 WBC 15.8 H 16.1 H (3.8-10.6) k/uL RBC 5.01 4.47 (3.80-5.40) m/uL Hgb 13.8 12.2 (11.4-16.0) gm/dL Hct 45.5 38.6 (34.0-46.0) % Plt Count 451 H 353 (150-450) k/uL Comprehensive Metabolic Panel 12/23/20 12/24/20 Range/Units 23:59 07:10 Sodium 129 L 132 L (137-145) mmol/L Potassium 4.8 4.1 (3.5-5.1) mmol/L Chloride 96 L 101 (98-107) mmol/L Carbon Dioxide 20 L 22 (22-30) mmol/L BUN 33 H 33 H (7-17) mg/dL Creatinine 1.59 H 1.44 H (0.52-1.04) mg/dL Glucose 718 H* 328 H (74-99) mg/dL Calcium 9.4 9.2 (8.4-10.2) mg/dL AST 20 (14-36) U/L ALT 19 (4-34) U/L Alkaline Phosphatase 153 H (38-126) U/L Total Protein 7.3 (6.3-8.2) g/dL Albumin 3.9 (3.5-5.0) g/dL Current Medications Generic Name Dose Route Start Last Admin Trade Name Freq PRN Reason Stop Dose Admin Aspirin 325 mg 12/25/20 09:00 Aspirin 325 Mg Tab PO DAILY [facility] Atorvastatin Calcium 80 mg 12/24/20 09:00 12/24/20 08:18 Atorvastatin 80 Mg Tab PO 80 mg DAILY [facility] Administration Heparin Sodium (Porcine) 0 unit 12/24/20 01:45 Heparin Sodium,Porcine 5,000 Unit/Ml 1 Ml Vial IV Q6HR PRN Low PTT Protocol Heparin Sodium/Sodium Chloride 250 mls @ 9.58 mls/hr 12/24/20 01:45 12/24/20 02:01 25,000 unit/ Sodium Chloride IV 11 units/kg/hr .Q24H BRANDY 9.58 mls/hr Administration Protocol 11 UNITS/KG/HR Insulin Aspart 0 unit 12/24/20 07:30 12/24/20 06:40 Insulin Aspart (Novolog) 100 Unit/Ml Vial SQ 7 unit AC-TID [facility] Administration Protocol Metoprolol Tartrate 25 mg 12/24/20 09:00 12/24/20 08:18 Metoprolol Tartrate 25 Mg Tab PO 25 mg BID [facility] Administration Morphine Sulfate 4 mg 12/24/20 01:45 Morphine Sulfate 4 Mg/Ml Syringe IV Q4HR PRN Chest Pain Nitroglycerin 0.4 mg 12/24/20 01:45 Nitroglycerin Sl Tabs 0.4 Mg Tab SUBLINGUAL Q5M PRN Chest Pain Intake and Output 12/23/20 12/24/20 12/24/20 22:59 06:59 14:59 Other: # Voids 1 Weight 89.8 kg 12/24/20 07:10 12/24/20 07:10 Assessment and Plan Assessment: #1 non-ST elevation myocardial infarction #2 CAD with prior stenting in 2009 #3 hypertension #4 hyperlipidemia #5 diabetes mellitus type 2 #6 paroxysmal atrial fibrillation #7 dizziness and near syncope with frequent falls at home Plan: From surgical services director perspective, we'll obtain and review prior records. We'll obtain a 2-D echo with Doppler to assess cardiac structure and function. He recommended the patient undergo cardiac catheterization for which patient is agreeable. The risks, benefits and alternative therapies for the above- mentioned procedure and for both sedation/analgesia as well as necessary blood product administration, if indicated, have been discussed with the patient. The patient has indicated understanding and acceptance of the risks and procedures discussed. Questions have been answered appropriately and HE/SHE is agreeable to move forward with the above stated procedure. The patient will be scheduled to undergo cardiac catheterization with Dr. Cramer today. The above dictated assessment and findings were discussed with signing physician. The impression and plan of care have been directed as dictated. Marisabel Jones, Nurse Practitioner, acting as scribe for signing physician.
[2020-12-24] MEDS ORDERED: LIDOCAINE 1% INJ 10MG/ML (20 ML MDV) ONE (10:59)
[2020-12-24] MEDS ORDERED: IV FLUID CONTINUATION 1,000 ML IV ONE (11:13)
[2020-12-24] MEDS ORDERED: fentaNYL (PF) 50 MCG/ML 2 ML AMP ONE (11:34)
[2020-12-24] MEDS ORDERED: MIDAZOLAM 2 MG/2 ML VIAL IV ONE (11:35)
[2020-12-24] MEDS ORDERED: fentaNYL (PF) 50 MCG/ML 2 ML AMP IV ONE (11:35)
[2020-12-24] MEDS ORDERED: LIDOCAINE 1% INJ 10MG/ML (20 ML MDV) SQ ONE (11:37)
[2020-12-24] MEDS ORDERED: IOPAMIDOL-370 125ML BTL INJ ONE (11:49)
[2020-12-24 12:25] LABS: Glucose,Whole Blood 221 mg/dL (75-99)
[2020-12-24 12:41] LABS: Glucose,Whole Blood 244 mg/dL (75-99)
[2020-12-24] MEDS ORDERED: RX INFO: IV CONTRAST WAS GIVEN 1 EACH MISC MISCELLANE PRN (13:06)
[2020-12-24] MEDS: SODIUM CHLORIDE 0.9% 1,000 ML IV SCH (14:17)
[2020-12-24 15:29] LABS: Hemoglobin A1C 11.2 % (4.0-6.0)
[2020-12-24 16:54] LABS: Glucose,Whole Blood 316 mg/dL (75-99)
--- NOTE | 2020-12-24 17:29 | CC ---
CARDIAC CATHETERIZATION REPORT PROCEDURE: Cardiac catheterization. INDICATION: Acute non ST-segment elevation NV. PROCEDURE NOTE: After obtaining informed consent, left heart catheterization and coronary angiogram were performed via the right femoral artery using standard Dominic catheters. Patient tolerated the procedure well without any obvious immediate complication. A femoral angiogram was performed and Angio-Seal was deployed for hemostasis. Patient received moderate conscious sedation. Total sedation time was 20 minutes. FINDINGS: HEMODYNAMICS: Left ventricular end-diastolic pressure is 8 to 12 mm. There is no significant gradient across the aortic valve. LEFT VENTRICULOGRAM: Not performed ANGIOGRAPHIC DATA: The left main coronary artery is a normal-sized vessel and is free of stenosis. Divides into left anterior descending coronary artery and circumflex coronary artery. The LAD appears heavily calcified as does the circumflex coronary artery. She has a [id number] atherosclerotic plaque in its midportion. It is possible patient had a plaque rupture in this area. Circumflex coronary artery shows mild nonobstructive coronary artery disease with the left dominant circulation. The right coronary artery is a nondominant vessel and is free of significant disease. CONCLUSIONS: Mild to moderate atherosclerotic plaque in a calcified left anterior descending coronary artery. PLAN: Patient will be managed with optimal medical therapy including dual antiplatelet therapy and consider an outpatient stress test. MMODL / IJN: [id number] /
[2020-12-24 20:17] LABS: Glucose,Whole Blood 291 mg/dL (75-99)
[2020-12-24] MEDS ORDERED: NITROGLYCERIN OINT 1 INCH/GM PACKET TOPICAL STA (20:23)
[2020-12-24] MEDS: TROSPIUM CHLORIDE 20 MG TABLET PO SCH (20:50)
--- NOTE | 2020-12-24 20:56 | P.HPIM ---
History of Present Illness H&P Date: 12/24/20 Chief Complaint: Chest pain History of presenting complaint: This is a 70-year-old patient of visiting physician Dr. Amanuel Wilkinson. 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 This occasion patient presents with having central chest pains lasted for about 1 hour. He went through back. Some shortness of breath. No perspiration or dizziness, lightheadedness. No nausea. Review of systems: GEN.: Tired EYES: None HEENT: None NECK: None RESPIRATORY: None CARDIOVASCULAR: As above GASTROINTESTINAL: None GENITOURINARY: None MUSCULOSKELETAL: Multiple joint pains LYMPHATICS: None HEMATOLOGICAL: None PSYCHIATRY: Forgetful NEUROLOGICAL: None Past medical history to include: Atrial fibrillation, diabetes mellitus, hypertension, hyperlipidemia, hepato- cellular carcinoma in remission after 1 dose of chemotherapy, spinal stenosis, DJD including lumbar spine, diabetic peripheral neuropathy, hyperactive bladder, septic left knee joint, restless leg syndrome, coronary artery disease with stent Social history: Lives with her daughter, Emani . Mostly uses a wheelchair. Patient's daughter is to [facility]. No history of smoking or alcohol. Physical examination: VITAL SIGNS: 97.6, 71, 18, 133/62, 97% room air GENERAL: BMI 34, laying in bed, awake EYES: Pupils equal. Conjunctiva normal. HEENT: External appearance of nose and ears normal, oral cavity grossly normal. NECK: JVD not raised; masses not palpable. HEART: First and second heart sounds are normal; no edema. LUNGS: Respiratory rate normal; distant breath sounds. ABDOMEN: Soft, nontender, liver spleen not palpable, no masses palpable. PSYCH: Able to answer simple questions. NEUROLOGICAL: Cranial nerves grossly intact; no facial asymmetry, power and sensation grossly intact. MUSCULOSKELETAL: evidence of OA in multiple joints LYMPHATICS: No lymph nodes palpable in the axilla and neck INVESTIGATIONS, reviewed in the clinical context: CBC 16.1 hemoglobin 12.2 platelets 353 potassium 4.1 bun 33 creatinine 1.44 troponin I 0.061, 1.3 White count 15.8 hemoglobin 13.8 sodium 129 potassium 4.8 bun 33 creatinine 1.59, glucose 718 EKG tracing personally reviewed by me-normal sinus rhythm nonspecific T-wave changes Chest x-ray film personally reviewed by me-poor penetration, some elevation of the right diaphragm Previous labs: Bun 20 creatinine 1.09 on 12/07/2020 Assessment: -Acute non-ST elevation myocardial infarction -Coronary artery disease-cardiac catheterization revealed mild to moderate atherosclerotic plaque in the calcified LAD. For medical management patient currently on Norvasc aspirin Lipitor Plavix Lopressor -Paroxysmal atrial fibrillation currently in sinus rhythm -Chronic kidney disease stage III likely nephrosclerosis -Acute kidney injury possibly prerenal from cardiorenal syndrome. Repeat labs. Consult nephrology -Coronary artery disease with a history of stent -Diabetes mellitus type 2 on oral hypoglycemic. Continue home dose of insulin. Follow Accu-Cheks -Essential hypertension, continue antihypertensives -Hyperlipidemia, on Lipitor -Hiatal hernia -DJD -Diabetic peripheral neuropathy -Chronic gait dysfunction uses a wheelchair at baseline -Restless leg syndrome -Obesity BMI 34 -cognitive impairment Additionally: Follow with cardiology. Nephrology consulted. Repeat labs in the morning. Care was discussed with the patient. Past Medical History Past Medical History: Atrial Fibrillation, Cancer, CVA/TIA, Diabetes Mellitus, Hyperlipidemia, Hypertension Additional Past Medical History / Comment(s): Hepatocellular carcinoma (in osito ssion), had one dose of chemo 2015, TIA X4, hiatal hernia, spinal stenosis, degenerative disc disease involving L3 and L4, diabetic peripheral neuropathy, hyperactive bladder, history of septic left knee joint post arthroplasty. restless leg syndrome. patient states [facility] home healthcare comes out 2x/week 12/31 History of Any Multi-Drug Resistant Organisms: MRSA Date of last positivie culture/infection: 2010 MDRO Source:: Left knee Past Surgical History: Adenoidectomy, Bariatric Surgery, Cholecystectomy, Heart Catheterization With Stent, Hernia Repair, Hysterectomy, Joint Replacement, Orthopedic Surgery, Tonsillectomy Additional Past Surgical History / Comment(s): Lap band placed in 2004, prolapsed & removed in 2005, neuro stimulator in back, one stent to LAD, left knee arthroscopic surgery, right total knee arthroplasty, left total knee arthroplasty 10/01/2011, repair of quadriceps tendon 08/21/2011, left knee patellar tendon repair 09/24/2011, removal of the hardware of the left total knee arthroplasty with implantation of the antibiotic spacer October 08 2011, total left knee hardware replacement in May 2012,. trigger finger, left hand in 2003 with subsequent reversal in 2005. Uses a walker or wheelchair Past Anesthesia/Blood Transfusion Reactions: No Reported Reaction Date of Last Stent Placement:: 05/17/2010 Past Psychological History: Anxiety, Depression Additional Psychological History / Comment(s): Pt resides with her Sonam cruz and her son in law. She ambulates rarely with a walker, mostly is in a wheelchair. Pt feeds herself. Sonam Cruz is pt's DPOA and caregiver. No home care used. Smoking Status: Never smoker Past Alcohol Use History: None Reported Past Drug Use History: None Reported - Past Family History Mother Family Medical History: Congestive Heart Failure (CHF) Father Family Medical History: Myocardial Infarction ([place]) Additional Family Medical History / Comment(s): Father at the age of 59 yrs from [place] Medications and Allergies Home Medications Medication Instructions Recorded Confirmed Type Pantoprazole Sodium 40 mg PO DAILY 08/10/14 12/24/20 History Solifenacin Succinate [Vesicare] 10 mg PO HS 08/10/14 12/24/20 History Ondansetron [Zofran] 4 mg PO Q8H PRN 03/26/16 12/24/20 History Venlafaxine HCl [Effexor] 75 mg PO QAM 05/18/17 12/24/20 History Venlafaxine HCl [Effexor] 150 mg PO HS 05/18/17 12/24/20 History bisacodyL [Dulcolax] 5 mg PO QAM 05/18/17 12/24/20 History Aspirin [Adult Low Dose Aspirin EC] 81 mg PO DAILY 09/14/18 12/24/20 History rOPINIRole HCL [Requip] 0.25 mg PO HS PRN 06/06/19 12/24/20 History INSULIN ASPART (NovoLOG) [NovoLOG See Protocol SQ AC-TID 12/09/19 12/24/20 History (formulary)] Ferrous Gluconate 324 mg PO DAILY 05/08/20 12/24/20 History Atorvastatin [Lipitor] 40 mg PO DAILY 12/04/20 12/24/20 History Calcium Carbonate [Calcium] 600 mg PO DAILY 12/04/20 12/24/20 History Ergocalciferol (Vitamin D2) 50 mcg PO DAILY 12/04/20 12/24/20 History [Vitamin D2 (2000 Iu)] Nystatin 100,000 Unit/gm Powd 1 applic TOPICAL BID PRN 12/04/20 12/24/20 History [Mycostatin Powder] Gabapentin [Neurontin] 300 mg PO HS #3 cap 12/07/20 12/24/20 Rx Insulin Glargine,Hum.rec.anlog 30 unit SQ HS #0 12/07/20 12/24/20 Rx [Lantus Solostar] Lisinopril-Hctz 10-12.5 mg 1 tab PO DAILY #30 tab 12/07/20 12/24/20 Rx [Zestoretic 10-12.5] QUEtiapine [SEROquel] 50 mg PO HS #30 tab 12/07/20 12/24/20 Rx amLODIPine [Norvasc] 10 mg PO HS #30 tablet 12/07/20 12/24/20 Rx Allergies Allergy/AdvReac Type Severity Reaction Status Date / Time metformin HCl Allergy "kidneys Verified 12/24/20 08:46 [From Glucophage] shut down" Physical Exam Vitals: Vital Signs Temp Pulse Pulse Resp BP BP Pulse Ox 12/24/20 11:00 98.4 F 71 20 114/67 97 12/24/20 08:00 98.4 F 73 18 122/59 94 L 12/24/20 04:00 73 17 119/78 98 12/24/20 03:40 97.8 F 75 18 191/86 98 12/24/20 02:00 100 16 118/65 95 12/24/20 00:30 83 16 133/62 97 12/23/20 23:27 97.6 F 71 18 193/72 98 Intake and Output 12/23/20 12/24/20 12/24/20 22:59 06:59 14:59 Intake Total 143.178 Balance 143.178 Intake: IV 75 Intake, IV Titration 68.178 Amount Heparin Sod,Pork in 0.45% 68.178 NaCl 25,000 unit In 0.45 % NaCl 1 250ml.bag @ 11 UNITS/KG/HR 9.58 mls/hr IV .Q24H BRANDY Rx#: [id number] Other: # Voids 1 Weight 89.8 kg Results CBC & Chem 7: 12/24/20 07:10 12/24/20 07:10 Labs: Abnormal Lab Results - Last 24 Hours (Table) 12/23/20 12/23/20 12/23/20 Range/Units 23:59 23:59 23:59 WBC 15.8 H (3.8-10.6) k/uL MCHC 30.4 L (31.0-37.0) g/dL Plt Count 451 H (150-450) k/uL Neutrophils # 12.6 H (1.3-7.7) k/uL APTT 21.8 L (22.0-30.0) sec Sodium 129 L (137-145) mmol/L Chloride 96 L (98-107) mmol/L Carbon Dioxide 20 L (22-30) mmol/L BUN 33 H (7-17) mg/dL Creatinine 1.59 H (0.52-1.04) mg/dL Glucose 718 H* (74-99) mg/dL POC Glucose (mg/dL) (75-99) mg/dL Alkaline Phosphatase 153 H (38-126) U/L Troponin I (0.000-0.034) ng/mL 12/23/20 12/24/20 12/24/20 Range/Units 23:59 02:13 02:13 WBC (3.8-10.6) k/uL MCHC (31.0-37.0) g/dL Plt Count (150-450) k/uL Neutrophils # (1.3-7.7) k/uL APTT 59.8 H (22.0-30.0) sec Sodium (137-145) mmol/L Chloride (98-107) mmol/L Carbon Dioxide (22-30) mmol/L BUN (7-17) mg/dL Creatinine (0.52-1.04) mg/dL Glucose (74-99) mg/dL POC Glucose (mg/dL) (75-99) mg/dL Alkaline Phosphatase (38-126) U/L Troponin I 0.061 H* 0.394 H* (0.000-0.034) ng/mL 12/24/20 12/24/20 12/24/20 Range/Units 02:57 05:58 07:10 WBC (3.8-10.6) k/uL MCHC (31.0-37.0) g/dL Plt Count (150-450) k/uL Neutrophils # (1.3-7.7) k/uL APTT (22.0-30.0) sec Sodium (137-145) mmol/L Chloride (98-107) mmol/L Carbon Dioxide (22-30) mmol/L BUN (7-17) mg/dL Creatinine (0.52-1.04) mg/dL Glucose (74-99) mg/dL POC Glucose (mg/dL) 493 H 383 H (75-99) mg/dL Alkaline Phosphatase (38-126) U/L Troponin I 1.350 H* (0.000-0.034) ng/mL 12/24/20 12/24/20 12/24/20 Range/Units 07:10 07:10 07:10 WBC 16.1 H (3.8-10.6) k/uL MCHC (31.0-37.0) g/dL Plt Count (150-450) k/uL Neutrophils # 10.8 H (1.3-7.7) k/uL APTT 41.8 H (22.0-30.0) sec Sodium 132 L (137-145) mmol/L Chloride (98-107) mmol/L Carbon Dioxide (22-30) mmol/L BUN 33 H (7-17) mg/dL Creatinine 1.44 H (0.52-1.04) mg/dL Glucose 328 H (74-99) mg/dL POC Glucose (mg/dL) (75-99) mg/dL Alkaline Phosphatase (38-126) U/L Troponin I (0.000-0.034) ng/mL Thrombosis Risk Factor Assmnt - Choose All That Apply Any of the Below Risk Factors Present?: Yes Each Factor Represents 1 point: Acute [place], Obesity (BMI >25) Each Risk Factor Represents 2 Points: Age 61-74 years Thrombosis Risk Factor Assessment Total Risk Factor Score: 4 Thrombosis Risk Factor Assessment Level: Moderate Risk
[2020-12-24] MEDS ORDERED: GABAPENTIN 300 MG CAP PO SCH (21:00)
[2020-12-24] MEDS ORDERED: amLODIPine 10 MG TAB PO SCH (21:00)
[2020-12-24] MEDS ORDERED: VENLAFAXINE HCL 75 MG TAB PO SCH (21:00)
[2020-12-24] MEDS ORDERED: INSULIN DETEMIR (LEVEMIR) 100 UNIT/ML SYR SQ SCH (21:00)
[2020-12-24] MEDS ORDERED: QUEtiapine 50 MG TAB PO SCH (21:00)
[2020-12-25] MEDS: NITROGLYCERIN OINT 1 INCH/GM PACKET TOPICAL SCH ×2 (04:30→08:38)
[2020-12-25] MEDS: SODIUM CHLORIDE 0.9% 1,000 ML IV SCH ×2 (04:32→17:03)
[2020-12-25 07:22] LABS: Glucose,Whole Blood 131 mg/dL (75-99)
[2020-12-25] MEDS ORDERED: PANTOPRAZOLE 40 MG TABLET PO SCH (07:30)
[2020-12-25] MEDS: ATORVASTATIN 80 MG TAB PO SCH (08:38)
[2020-12-25] MEDS: METOPROLOL TARTRATE 25 MG TAB PO SCH (08:39)
[2020-12-25] MEDS: TROSPIUM CHLORIDE 20 MG TABLET PO SCH (08:39)
[2020-12-25] MEDS: INSULIN ASPART (NovoLOG) 100 UNIT/ML VIAL SQ SCH ×4 (08:40→12:58)
[2020-12-25] MEDS ORDERED: LISINOPRIL-HCTZ 10-12.5 MG 1 EACH TAB PO SCH (09:00)
[2020-12-25] MEDS ORDERED: bisacodyL 5 MG TABLET.DR PO SCH (09:00)
[2020-12-25] MEDS ORDERED: NON FORMULARY DRUG (Ferrous Gluconate [Ferrous Gluconate] 324 MG Tablet) PO SCH (09:00)
[2020-12-25] MEDS ORDERED: ASPIRIN 325 MG TAB PO SCH (09:00)
[2020-12-25] MEDS ORDERED: CLOPIDOGREL 75 MG TAB PO SCH (09:00)
[2020-12-25] MEDS ORDERED: CALCIUM CARBONATE 500 MG CHEWABLE PO SCH (09:00)
[2020-12-25] MEDS ORDERED: VENLAFAXINE HCL 75 MG TAB PO SCH (09:00)
[2020-12-25] MEDS ORDERED: NON FORMULARY DRUG (Ergocalciferol (Vitamin D2) [Vitamin D2 (2000 Iu)] 50 MCG Tablet) PO SCH (09:00)
[2020-12-25 10:21] LABS: Basophils # (A) 0.1 k/uL (0-0.2); Basophils % (A) 1 %; Eosinophils # (A) 0.3 k/uL (0-0.7); Eosinophils % (A) 3 %; HCT 40.5 % (34.0-46.0); HGB 12.4 gm/dL (11.4-16.0); Lymphocytes # (A) 3.1 k/uL (1.0-4.8); Lymphocytes % (A) 29 %; MCHC 30.6 g/dL (31.0-37.0); MCV 88.4 fL (80.0-100.0); Mean Platelet Volume 8.9; Monocytes # (A) 0.5 k/uL (0-1.0); Monocytes % (A) 4 %; Neutrophils # (A) 6.8 k/uL (1.3-7.7); Neutrophils % (A) 62 %; Platelet Count 334 k/uL (150-450); RBC 4.58 m/uL (3.80-5.40); RDW 13.3 % (11.5-15.5); WBC 10.9 k/uL (3.8-10.6)
[2020-12-25 10:32] LABS: Calcium 8.9 mg/dL (8.4-10.2); Potassium 4.4 mmol/L (3.5-5.1)
[2020-12-25 10:59] VITALS: BMI 33.5
[2020-12-25 11:18] VITALS: RESP 18; TEMP 98.3
[2020-12-25 12:08] LABS: Glucose,Whole Blood 119 mg/dL (75-99)
--- NOTE | 2020-12-25 13:44 | P.PN ---
Subjective Progress Note Date: 12/25/20 HISTORY OF PRESENT ILLNESS: Patient is status post cardiac catheterization with Dr. Cramer revealing [id number] disease of the LAD. Medical management was recommended. Patient examined this morning at the bedside. She currently denies chest pain or pressure. Denies shortness of breath. Vital signs are stable. Right groin is soft without hematoma. PHYSICAL EXAM: VITAL SIGNS: Reviewed. GENERAL: Well-developed in no acute distress. NECK: Supple. No JVD or thyromegaly LUNGS: Respirations even and unlabored. Lungs essentially clear to auscultation bilaterally. HEART: Regular rate and rhythm. S1 and S2 heard. EXTREMITIES: Normal range of motion. No clubbing or cyanosis. Peripheral pulses intact. No lower extremity edema. Right groin is soft without hematoma. ASSESSMENT: Non-ST elevated myocardial infarction, status post cardiac cath revealing [id number] disease of LAD Coronary artery disease with previous PCI in 2009 Hypertension Hyperlipidemia Diabetes mellitus Paroxysmal atrial fibrillation PLAN: Continue current cardiac medications Patient is stable for discharge home today. She is to follow up on an outpatient basis. Nurse practitioner note has been reviewed by physician. Signing provider agrees with the documented findings, assessment, and plan of care. Objective - Vital Signs Vital signs: Vital Signs Temp 98.3 F 12/25/20 08:00 Pulse 54 L 12/25/20 08:00 Resp 18 12/25/20 08:00 BP 114/73 12/25/20 08:00 Pulse Ox 95 12/25/20 08:00 Intake & Output 12/24/20 12/25/20 12/25/20 18:59 06:59 18:59 Intake Total 963.178 525 240 Output Total 380 Balance 963.178 145 240 Weight 88.5 kg 88.5 kg Intake: IV 775 Sodium Chloride 0.9% 1, 700 000 ml @ 75 mls/hr IV . [id number] BRANDY Rx#:[id number] Intake, IV Titration 68.178 525 Amount Heparin Sod,Pork in 0.45% 68.178 NaCl 25,000 unit In 0.45 % NaCl 1 250ml.bag @ 11 UNITS/KG/HR 9.58 mls/hr IV .Q24H BRANDY Rx#: [id number] Sodium Chloride 0.9% 1, 525 000 ml @ 75 mls/hr IV . [id number] BRANDY Rx#:[id number] Oral 120 240 Output: Urine 380 Other: Voiding Method Bedside Commode Bedside Commode Diaper Incontinent # Voids 2 - Labs CBC & Chem 7: 12/25/20 09:51 12/25/20 09:51 Labs: Abnormal Lab Results - Last 24 Hours (Table) 12/24/20 12/24/20 12/24/20 Range/Units 07:10 16:47 20:16 WBC (3.8-10.6) k/uL MCHC (31.0-37.0) g/dL Chloride (98-107) mmol/L BUN (7-17) mg/dL Creatinine (0.52-1.04) mg/dL Glucose (74-99) mg/dL POC Glucose (mg/dL) 316 H 291 H (75-99) mg/dL Hemoglobin A1c 11.2 H (4.0-6.0) % HDL Cholesterol (40-60) mg/dL 12/25/20 12/25/20 12/25/20 Range/Units 07:19 09:51 09:51 WBC 10.9 H (3.8-10.6) k/uL MCHC 30.6 L (31.0-37.0) g/dL Chloride 109 H (98-107) mmol/L BUN 28 H (7-17) mg/dL Creatinine 1.28 H (0.52-1.04) mg/dL Glucose 168 H (74-99) mg/dL POC Glucose (mg/dL) 131 H (75-99) mg/dL Hemoglobin A1c (4.0-6.0) % HDL Cholesterol 36 L (40-60) mg/dL 12/25/20 Range/Units 12:06 WBC (3.8-10.6) k/uL MCHC (31.0-37.0) g/dL Chloride (98-107) mmol/L BUN (7-17) mg/dL Creatinine (0.52-1.04) mg/dL Glucose (74-99) mg/dL POC Glucose (mg/dL) 119 H (75-99) mg/dL Hemoglobin A1c (4.0-6.0) % HDL Cholesterol (40-60) mg/dL
[2020-12-25 13:52] VITALS: BP 109/57; PULSE 70
--- NOTE | 2020-12-26 00:42 | P.DS ---
Providers Date of admission: 12/25/20 10:56 Attending physician: Sharif Ernst Consults: 12/24/20 01:45 Consult Physician Urgent Consulting Provider: Milan Jhaveri Consult Reason/Comments: nstemi Do you want consulting provider notified?: Yes Primary care physician: Amanuel Wilkinson MD Hospital Course: Diagnoses: -Acute non-ST elevation myocardial infarction,status post cardiac cath revealing [id number] disease of LAD -Coronary artery disease-cardiac catheterization revealed mild to moderate atherosclerotic plaque in the calcified LAD. For medical management patient currently on aspirin Lipitor Plavix Lopressor -Paroxysmal atrial fibrillation currently in sinus rhythm -Mild leukocytosis, mostly reactive, almost came back to normal prior to discharge. No need for antibiotics as no signs of infection -Chronic kidney disease stage III likely nephrosclerosis. Creatinine improvement on discharge -Coronary artery disease with a history of stent -Diabetes mellitus type 2 on oral hypoglycemic. Continue home dose of insulin. Follow Accu-Cheks -Essential hypertension, continue antihypertensives -Hyperlipidemia, on Lipitor -Hiatal hernia -DJD -Diabetic peripheral neuropathy -Chronic gait dysfunction uses a wheelchair at baseline -Restless leg syndrome -Obesity BMI 34 -cognitive impairment Hospital course This is a 70-year-old patient of visiting physician Dr. Amanuel Wilkinson. 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 This occasion patient presents with having central chest pains lasted for about 1 hour. Patient has been evaluated by blocker and polisher gold wheel showing awxi-th-[id number] disease of her LAD, blocker and polisher gold wheel recommended continue medical therapy and cleared the patient for discharge Patient is discharged on aspirin, Plavix and metoprolol while Norvasc was discontinued On the day of discharge patient denies chest pain stating that her chest pain has resolved completely, no dyspnea, no other complaints, no change in urine or bowel habits. No fever Problems and management plan were discussed with the patient and he verbalized understanding and acceptance Patient was found stable and can be discharged home however he needs follow-up as an outpatient. Patient was instructed to follow up with PCP within one week and patient agrees Patient was instructed to follow up with her blocker and polisher gold wheel Dr. Cramer in 1-2 weeks and she agrees Physical exam Gen: patient is a AAOx3, no distress CVS: S1-S2, RRR, no murmur Lungs: B/L CTA, no wheezing Abdomen: soft, no distention, no tenderness, positive bowel sounds Extremity: no leg edema or induration Time spent more than 35 minutes Patient Condition at Discharge: Fair Plan - Discharge Summary Discharge Rx Participant: Yes New Discharge Prescriptions: New Atorvastatin [Lipitor] 80 mg PO DAILY #30 tab Metoprolol Tartrate [Lopressor] 25 mg PO BID #60 tab Nitroglycerin Sl Tabs [Nitrostat] 0.4 mg SUBLINGUAL Q5M PRN #20 tab PRN Reason: Chest Pain INSULIN ASPART (NovoLOG) [NovoLOG (formulary)] 6 unit SQ AC-TID #1 vial Clopidogrel [Plavix] 75 mg PO DAILY #30 tab Aspirin 81 mg PO DAILY #90 chewable Continue Solifenacin Succinate [Vesicare] 10 mg PO HS Pantoprazole Sodium 40 mg PO DAILY Ondansetron [Zofran] 4 mg PO Q8H PRN PRN Reason: Nausea bisacodyL [Dulcolax] 5 mg PO QAM Venlafaxine HCl [Effexor] 150 mg PO HS Venlafaxine HCl [Effexor] 75 mg PO QAM rOPINIRole HCL [Requip] 0.25 mg PO HS PRN PRN Reason: RESTLESS LEGS INSULIN ASPART (NovoLOG) [NovoLOG (formulary)] See Protocol SQ AC-TID Ferrous Gluconate 324 mg PO DAILY Nystatin 100,000 Unit/gm Powd [Mycostatin Powder] 1 applic TOPICAL BID PRN PRN Reason: Rash Ergocalciferol (Vitamin D2) [Vitamin D2 (2000 Iu)] 50 mcg PO DAILY Calcium Carbonate [Calcium] 600 mg PO DAILY QUEtiapine [SEROquel] 50 mg PO HS #30 tab Lisinopril-Hctz 10-12.5 mg [Zestoretic 10-12.5] 1 tab PO DAILY #30 tab Insulin Glargine,Hum.rec.anlog [Lantus Solostar] 30 unit SQ HS #0 Gabapentin [Neurontin] 300 mg PO HS #3 cap Discontinued Aspirin [Adult Low Dose Aspirin EC] 81 mg PO DAILY Atorvastatin [Lipitor] 40 mg PO DAILY amLODIPine [Norvasc] 10 mg PO HS #30 tablet Discharge Medication List Pantoprazole Sodium 40 mg PO DAILY 08/10/14 [History] Solifenacin Succinate [Vesicare] 10 mg PO HS 08/10/14 [History] Ondansetron [Zofran] 4 mg PO Q8H PRN 03/26/16 [History] Venlafaxine HCl [Effexor] 75 mg PO QAM 05/18/17 [History] Venlafaxine HCl [Effexor] 150 mg PO HS 05/18/17 [History] bisacodyL [Dulcolax] 5 mg PO QAM 05/18/17 [History] rOPINIRole HCL [Requip] 0.25 mg PO HS PRN 06/06/19 [History] INSULIN ASPART (NovoLOG) [NovoLOG (formulary)] See Protocol SQ AC-TID 12/09/19 [History] Ferrous Gluconate 324 mg PO DAILY 05/08/20 [History] Calcium Carbonate [Calcium] 600 mg PO DAILY 12/04/20 [History] Ergocalciferol (Vitamin D2) [Vitamin D2 (2000 Iu)] 50 mcg PO DAILY 12/04/20 [History] Nystatin 100,000 Unit/gm Powd [Mycostatin Powder] 1 applic TOPICAL BID PRN 12/04/20 [History] Gabapentin [Neurontin] 300 mg PO HS #3 cap 12/07/20 [Rx] Insulin Glargine,Hum.rec.anlog [Lantus Solostar] 30 unit SQ HS #0 12/07/20 [Rx] Lisinopril-Hctz 10-12.5 mg [Zestoretic 10-12.5] 1 tab PO DAILY #30 tab 12/07/20 [Rx] QUEtiapine [SEROquel] 50 mg PO HS #30 tab 12/07/20 [Rx] Aspirin 81 mg PO DAILY #90 chewable 12/25/20 [Rx] Atorvastatin [Lipitor] 80 mg PO DAILY #30 tab 12/25/20 [Rx] Clopidogrel [Plavix] 75 mg PO DAILY #30 tab 12/25/20 [Rx] INSULIN ASPART (NovoLOG) [NovoLOG (formulary)] 6 unit SQ AC-TID #1 vial 12/25/20 [Rx] Metoprolol Tartrate [Lopressor] 25 mg PO BID #60 tab 12/25/20 [Rx] Nitroglycerin Sl Tabs [Nitrostat] 0.4 mg SUBLINGUAL Q5M PRN #20 tab 12/25/20 [Rx] Follow up Appointment(s)/Ref[facility](s): [facility] [[facility] - Amanuel Wilkinson MD [Primary Care Provider] - 1-2 days (Please call office to make a follow-up appointment within a week.) Poli Cramer MD [STAFF PHYSICIAN] - 01/04/21 9:15 am Patient Instructions/Handouts: Heart Catheterization (DC) Activity/Diet/Wound Care/Special Instructions: heart healthy diet activity is restricted till you see your doctor Discharge Disposition: HOME SELF-CARE
[2020-12-26] MEDS ORDERED: ASPIRIN 81 MG PO SCH (09:00)
== END 2020-12-25 17:13 | disposition home health service (06) | DRG 281 ==
LOC: EC 23:25 → 3SCARD 12-24 01:47 → OBSVTOIN 12-25 10:56
PROVIDERS: ADMIT Hospitalist; ATTEND Hospitalist
PROC: 4A023N7 Measurement of Cardiac Sampling and Pressure, Left Heart, Percutaneous Approach (ICD-10-PCS; principal; 2020-12-24 11:30)
PROC: B2111ZZ Fluoroscopy of Multiple Coronary Arteries using Low Osmolar Contrast (ICD-10-PCS; principal; 2020-12-24 11:30)
DX: I21.4 Non-ST elevation (NSTEMI) myocardial infarction (principal); I42.9 Cardiomyopathy, unspecified; N17.9 Acute kidney failure, unspecified; E86.0 Dehydration; F32.9 Major depressive disorder, single episode, unspecified; E11.22 Type 2 diabetes mellitus with diabetic chronic kidney disease; E11.42 Type 2 diabetes mellitus with diabetic polyneuropathy; E11.65 Type 2 diabetes mellitus with hyperglycemia; E66.9 Obesity, unspecified; E78.5 Hyperlipidemia, unspecified; F41.9 Anxiety disorder, unspecified; G25.81 Restless legs syndrome; Z20.822 Contact with and (suspected) exposure to COVID-19; I12.9 Hypertensive chronic kidney disease with stage 1 through stage 4 chronic kidney disease, or unspecified chronic kidney disease; I25.10 Atherosclerotic heart disease of native coronary artery without angina pectoris; I48.0 Paroxysmal atrial fibrillation; K44.9 Diaphragmatic hernia without obstruction or gangrene; M19.90 Unspecified osteoarthritis, unspecified site; N18.30 Chronic kidney disease, stage 3 unspecified; R29.6 Repeated falls; Z96.653 Presence of artificial knee joint, bilateral; R41.89 Other symptoms and signs involving cognitive functions and awareness; R26.9 Unspecified abnormalities of gait and mobility; I25.84 Coronary atherosclerosis due to calcified coronary lesion; M48.061 Spinal stenosis, lumbar region without neurogenic claudication; N32.81 Overactive bladder; Z68.34 Body mass index [BMI] 34.0-34.9, adult; Z79.4 Long term (current) use of insulin; Z79.82 Long term (current) use of aspirin; Z79.899 Other long term (current) drug therapy; Z82.49 Family history of ischemic heart disease and other diseases of the circulatory system; Z85.05 Personal history of malignant neoplasm of liver; Z90.710 Acquired absence of both cervix and uterus; Z86.73 Personal history of transient ischemic attack (TIA), and cerebral infarction without residual deficits; Z95.5 Presence of coronary angioplasty implant and graft
CPT/HCPCS: 36415; 71046; 80048; 80053; 80061; 82009; 82550; 82553; 83036; 83690; 83735; 83880; 84145; 84484; 85025; 85610; 85730; 87635; 93005; 93458; 96365; 96375; 96376; 99291

== ENCOUNTER 2021-01-04 12:44 | Inpatient (IN) | payer MEDICARE, OTHER ==
[2021-01-04] MEDS ORDERED: SODIUM CHLORIDE 0.9% 1,000 ML IV STA (13:11)
[2021-01-04] MEDS ORDERED: ONDANSETRON 4 MG/2 ML VIAL IVP STA ×2 (13:11→14:49)
--- NOTE | 2021-01-04 13:13 | ED ---
General Adult HPI - General Chief complaint: Altered Mental Status Stated complaint: AMS Time Seen by Provider: 01/04/21 12:47 Source: patient, EMS Mode of arrival: EMS Limitations: no limitations - History of Present Illness Initial comments: Dictation was produced using [employer] dictation software. please excuse any grammatical, word or spelling errors. This patient was cared for during a federal and state declared state of emergency secondary to Covid 19 Chief Complaint: 71-year-old female with past medical history atrial fibrilla tion, diabetes dyslipidemia presents emergency department for episode of unresponsiveness. History of Present Illness: 31-year-old female she was brought in by EMS. Patient was receiving physical therapy by home physical therapist when she had episode where she was very dizzy lightheaded and unresponsive for approximately 10 minutes. It was described that patient was sitting there slumped in a chair with her eyes open and looking straight ahead however not being responsive. Patient states for most of the day she's been very dizzy and lightheaded. Patient vomited multiple times. Her emesis is nonbilious nonbloody. She has no pain complaints. Denies any numbness and paresthesias to the arms or legs. The ROS documented in this emergency department record has been reviewed and confirmed by me. Those systems with pertinent positive or negative responses have been documented in the HPI. All other systems are other negative and/or noncontributory. PHYSICAL EXAM: General Impression: Alert and oriented x3, not in acute distress HEENT: Normocephalic atraumatic, extra-ocular movements intact, pupils equal and reactive to light bilaterally, dry mucous membranes Cardiovascular: Heart regular rate and rhythm Chest: Able to complete full sentences, no retractions, no tachypnea, lungs clear to auscultation bilaterally Abdomen: abdomen soft, non-tender, non-distended, no organomegaly, no pulsatile abdominal mass Musculoskeletal: Pulses present and equal in all extremities, no peripheral edema Motor: no focal deficits noted Neurological: CN II-XII grossly intact, no focal motor or sensory deficits noted Skin: Intact with no visualized rashes Psych: Normal affect and mood ED course: 70-year-old female presents with episode of unresponsiveness. HPI suspicious for syncopal episode vital signs upon arrival shows blood pressure 90/60 cumbersome vital signs within acceptable limits Unclear significance. Coag panel is negative. Metabolic panel shows initial lactic acidosis of 4.2. Elevated renal markers which. Baseline. Greater than 182 white blood cells.: 19 negative. Blood pressures are improved in the emergency department after intravenous fluids. Patient be admitted for lactic acidosis and urinary tract infection. Case discussed with son physician who arslan l be willing to accept patients care. EKG interpretation: Ventricular rate 82, normal sinus rhythm,. Interval 180, QRS 80, QTc 464. No IL prolongation, no QTC prolongation, no ST or T-wave changes noted. Overall, this EKG is unremarkable - Related Data Home Medications Medication Instructions Recorded Confirmed Pantoprazole Sodium 40 mg PO DAILY 08/10/14 01/04/21 Solifenacin Succinate [Vesicare] 10 mg PO HS 08/10/14 01/04/21 Venlafaxine HCl [Effexor] 75 mg PO QAM 05/18/17 01/04/21 Venlafaxine HCl [Effexor] 150 mg PO HS 05/18/17 01/04/21 rOPINIRole HCL [Requip] 0.25 mg PO HS 06/06/19 01/04/21 INSULIN ASPART (NovoLOG) [NovoLOG See Protocol SQ AC-TID 12/09/19 01/04/21 (formulary)] Ferrous Gluconate 324 mg PO DAILY 05/08/20 01/04/21 Aspirin 325 mg PO DAILY 01/04/21 01/04/21 Calcium/Magnesium/Zinc 1 tab PO DAILY 01/04/21 01/04/21 [Pnkwnbx-Ufgsqhalh-Oljm Tablet] Cholecalciferol [Vitamin D3 (25 25 mcg PO DAILY 01/04/21 01/04/21 Mcg = 1000 Iu)] Docusate [Colace] 100 mg PO DAILY 01/04/21 01/04/21 amLODIPine [Norvasc] 10 mg PO HS 01/04/21 01/04/21 Previous Rx's Medication Instructions Recorded Gabapentin [Neurontin] 300 mg PO HS #3 cap 12/07/20 Insulin Glargine,Hum.rec.anlog 30 unit SQ HS #0 12/07/20 [Lantus Solostar] Lisinopril-Hctz 10-12.5 mg 1 tab PO DAILY #30 tab 12/07/20 [Zestoretic 10-12.5] QUEtiapine [SEROquel] 50 mg PO HS #30 tab 12/07/20 Atorvastatin [Lipitor] 80 mg PO DAILY #30 tab 12/25/20 Clopidogrel [Plavix] 75 mg PO DAILY #30 tab 12/25/20 INSULIN ASPART (NovoLOG) [NovoLOG 6 unit SQ AC-TID #1 vial 12/25/20 (formulary)] Metoprolol Tartrate [Lopressor] 25 mg PO BID #60 tab 12/25/20 Nitroglycerin Sl Tabs [Nitrostat] 0.4 mg SUBLINGUAL Q5M PRN #20 tab 12/25/20 Allergies Allergy/AdvReac Type Severity Reaction Status Date / Time metformin HCl Allergy "kidneys Verified 01/04/21 16:14 [From Glucophage] shut down" paper tape AdvReac Itching Uncoded 01/05/21 00:46 Review of Systems ROS Statement: Those systems with pertinent positive or pertinent negative responses have been documented in the HPI. ROS Other: All systems not noted in ROS Statement are negative. Past Medical History Past Medical History: Atrial Fibrillation, Cancer, CVA/TIA, Diabetes Mellitus, Hyperlipidemia, Hypertension Additional Past Medical History / Comment(s): Hepatocellular carcinoma (in remission), had one dose of chemo 2014, TIA X4, hiatal hernia, spinal stenosis, degenerative disc disease involving L3 and L4, diabetic peripheral neuropathy, hyperactive bladder, history of septic left knee joint post arthroplasty. restless leg syndrome. patient states [facility] home healthcare comes out 2x/week 12/31 History of Any Multi-Drug Resistant Organisms: MRSA Date of last positivie culture/infection: 2010 MDRO Source:: Left knee Past Surgical History: Adenoidectomy, Bariatric Surgery, Cholecystectomy, Heart Catheterization With Stent, Hernia Repair, Hysterectomy, Joint Replacement, Orthopedic Surgery, Tonsillectomy Additional Past Surgical History / Comment(s): Lap band placed in 2004, prolapsed & removed in 2006, neuro stimulator in back, one stent to LAD, left knee arthroscopic surgery, right total knee arthroplasty, left total knee a rthroplasty 10/01/2011, repair of quadriceps tendon 08/21/2011, left knee patellar tendon repair 09/24/2011, removal of the hardware of the left total knee arthroplasty with implantation of the antibiotic spacer October 08 2011, total left knee hardware replacement in May 2012,. trigger finger, left hand in 2003 with subsequent reversal in 2005. Uses a walker or wheelchair Past Anesthesia/Blood Transfusion Reactions: No Reported Reaction Date of Last Stent Placement:: 05/17/2010 Past Psychological History: Anxiety, Depression Smoking Status: Never smoker Past Alcohol Use History: None Reported Past Drug Use History: None Reported - Past Family History Mother Family Medical History: Congestive Heart Failure (CHF) Father Family Medical History: Myocardial Infarction ([place]) Additional Family Medical History / Comment(s): Father at the age of 59 yrs from [place] General Exam Limitations: no limitations Course Vital Signs 01/04/21 01/04/21 01/04/21 12:45 14:55 16:53 Temperature 98 F Pulse Rate 80 71 65 Pulse Rate [ Pulse Oximetery ] Respiratory 16 20 20 Rate Blood Pressure 90/68 116/61 116/78 Blood Pressure [Right Arm] O2 Sat by Pulse 96 98 98 Oximetry 01/04/21 01/04/21 18:23 18:30 Temperature 97.9 F 98.6 F Pulse Rate 77 Pulse Rate [ 70 Pulse Oximetery ] Respiratory 16 20 Rate Blood Pressure 102/60 Blood Pressure 125/60 [Right Arm] O2 Sat by Pulse 97 97 Oximetry Medical Decision Making - Lab Data Result diagrams: 01/04/21 13:16 01/06/21 06:37 Lab Results 01/04/21 01/04/21 01/04/21 Range/Units 13:16 13:16 13:16 WBC 14.8 H (3.8-10.6) k/uL RBC 5.03 (3.80-5.40) m/uL Hgb 14.4 (11.4-16.0) gm/dL Hct 43.6 (34.0-46.0) % MCV 86.6 (80.0-100.0) fL MCH 28.6 (25.0-35.0) pg MCHC 33.0 (31.0-37.0) g/dL RDW 13.1 (11.5-15.5) % Plt Count 357 (150-450) k/uL MPV 8.5 Neutrophils % 59 % Lymphocytes % 34 % Monocytes % 4 % Eosinophils % 2 % Basophils % 1 % Neutrophils # 8.7 H (1.3-7.7) k/uL Lymphocytes # 5.1 H (1.0-4.8) k/uL Monocytes # 0.6 (0-1.0) k/uL Eosinophils # 0.3 (0-0.7) k/uL Basophils # 0.1 (0-0.2) k/uL Manual Slide Review Performed PT (9.0-12.0) sec INR (<1.2) APTT (22.0-30.0) sec Sodium 141 (137-145) mmol/L Potassium 4.3 (3.5-5.1) mmol/L Chloride 104 (98-107) mmol/L Carbon Dioxide 24 (22-30) mmol/L Anion Gap 13 mmol/L BUN 30 H (7-17) mg/dL Creatinine 1.57 H (0.52-1.04) mg/dL Est GFR (CKD-EPI)AfAm 38 (>60 ml/min/1.73 sqM) Est GFR (CKD-EPI)NonAf 33 (>60 ml/min/1.73 sqM) Glucose 261 H (74-99) mg/dL POC Glucose (mg/dL) (75-99) mg/dL POC Glu Sales Representative Publications ID Lactic Ac Sepsis Rflx Plasma Lactic Acid Fabio 4.2 H* (0.7-2.0) mmol/L Calcium 10.0 (8.4-10.2) mg/dL Magnesium 2.1 (1.6-2.3) mg/dL Total Bilirubin 0.4 (0.2-1.3) mg/dL AST 40 H (14-36) U/L ALT 31 (4-34) U/L Alkaline Phosphatase 165 H (38-126) U/L Troponin I (0.000-0.034) ng/mL Total Protein 7.0 (6.3-8.2) g/dL Albumin 3.8 (3.5-5.0) g/dL Urine Color Urine Appearance (Clear) Urine pH (5.0-8.0) Ur Specific [place] (1.001-1.035) Urine Protein (Negative) Urine Glucose (UA) (Negative) Urine Ketones (Negative) Urine Blood (Negative) Urine Nitrite (Negative) Urine Bilirubin (Negative) Urine Urobilinogen (<2.0) mg/dL Ur Leukocyte Esterase (Negative) Urine RBC (0-5) /hpf Urine WBC (0-5) /hpf Urine WBC Clumps (None) /hpf Ur Squamous Epith Cells (0-4) /hpf Urine Bacteria (None) /hpf Hyaline Casts (0-2) /lpf Urine Mucus (None) /hpf Urine Yeast (Budding) (None) /hpf Coronavirus (PCR) (Not Detectd) 01/04/21 01/04/21 01/04/21 Range/Units 13:16 13:16 13:19 WBC (3.8-10.6) k/uL RBC (3.80-5.40) m/uL Hgb (11.4-16.0) gm/dL Hct (34.0-46.0) % MCV (80.0-100.0) fL MCH (25.0-35.0) pg MCHC (31.0-37.0) g/dL RDW (11.5-15.5) % Plt Count (150-450) k/uL MPV Neutrophils % % Lymphocytes % % Monocytes % % Eosinophils % % Basophils % % Neutrophils # (1.3-7.7) k/uL Lymphocytes # (1.0-4.8) k/uL Monocytes # (0-1.0) k/uL Eosinophils # (0-0.7) k/uL Basophils # (0-0.2) k/uL Manual Slide Review PT (9.0-12.0) sec INR (<1.2) APTT (22.0-30.0) sec Sodium (137-145) mmol/L Potassium (3.5-5.1) mmol/L Chloride (98-107) mmol/L Carbon Dioxide (22-30) mmol/L Anion Gap mmol/L BUN (7-17) mg/dL Creatinine (0.52-1.04) mg/dL Est GFR (CKD-EPI)AfAm (>60 ml/min/1.73 sqM) Est GFR (CKD-EPI)NonAf (>60 ml/min/1.73 sqM) Glucose (74-99) mg/dL POC Glucose (mg/dL) 235 H (75-99) mg/dL POC Glu Sales Representative Publications ID [place] Lactic Ac Sepsis Rflx Plasma Lactic Acid Fabio (0.7-2.0) mmol/L Calcium (8.4-10.2) mg/dL Magnesium (1.6-2.3) mg/dL Total Bilirubin (0.2-1.3) mg/dL AST (14-36) U/L ALT (4-34) U/L Alkaline Phosphatase (38-126) U/L Troponin I <0.012 (0.000-0.034) ng/mL Total Protein (6.3-8.2) g/dL Albumin (3.5-5.0) g/dL Urine Color Yellow Urine Appearance Turbid H (Clear) Urine pH 5.5 (5.0-8.0) Ur Specific [place] 1.021 (1.001-1.035) Urine Protein 2+ H (Negative) Urine Glucose (UA) Trace H (Negative) Urine Ketones Negative (Negative) Urine Blood Negative (Negative) Urine Nitrite Negative (Negative) Urine Bilirubin Negative (Negative) Urine Urobilinogen 2.0 (<2.0) mg/dL Ur Leukocyte Esterase Large H (Negative) Urine RBC 4 (0-5) /hpf Urine WBC >182 H (0-5) /hpf Urine WBC Clumps Many H (None) /hpf Ur Squamous Epith Cells 3 (0-4) /hpf Urine Bacteria Many H (None) /hpf Hyaline Casts 76 H (0-2) /lpf Urine Mucus Many H (None) /hpf Urine Yeast (Budding) Many H (None) /hpf Coronavirus (PCR) (Not Detectd) 01/04/21 01/04/21 01/04/21 Range/Units 13:58 15:14 16:05 WBC (3.8-10.6) k/uL RBC (3.80-5.40) m/uL Hgb (11.4-16.0) gm/dL Hct (34.0-46.0) % MCV (80.0-100.0) fL MCH (25.0-35.0) pg MCHC (31.0-37.0) g/dL RDW (11.5-15.5) % Plt Count (150-450) k/uL MPV Neutrophils % % Lymphocytes % % Monocytes % % Eosinophils % % Basophils % % Neutrophils # (1.3-7.7) k/uL Lymphocytes # (1.0-4.8) k/uL Monocytes # (0-1.0) k/uL Eosinophils # (0-0.7) k/uL Basophils # (0-0.2) k/uL Manual Slide Review PT 10.0 (9.0-12.0) sec INR 0.9 (<1.2) APTT 91.9 H (22.0-30.0) sec Sodium (137-145) mmol/L Potassium (3.5-5.1) mmol/L Chloride (98-107) mmol/L Carbon Dioxide (22-30) mmol/L Anion Gap mmol/L BUN (7-17) mg/dL Creatinine (0.52-1.04) mg/dL Est GFR (CKD-EPI)AfAm (>60 ml/min/1.73 sqM) Est GFR (CKD-EPI)NonAf (>60 ml/min/1.73 sqM) Glucose (74-99) mg/dL POC Glucose (mg/dL) (75-99) mg/dL POC Glu Sales Representative Publications ID Lactic Ac Sepsis Rflx Y Plasma Lactic Acid Fabio (0.7-2.0) mmol/L Calcium (8.4-10.2) mg/dL Magnesium (1.6-2.3) mg/dL Total Bilirubin (0.2-1.3) mg/dL AST (14-36) U/L ALT (4-34) U/L Alkaline Phosphatase (38-126) U/L Troponin I (0.000-0.034) ng/mL Total Protein (6.3-8.2) g/dL Albumin (3.5-5.0) g/dL Urine Color Urine Appearance (Clear) Urine pH (5.0-8.0) Ur Specific [place] (1.001-1.035) Urine Protein (Negative) Urine Glucose (UA) (Negative) Urine Ketones (Negative) Urine Blood (Negative) Urine Nitrite (Negative) Urine Bilirubin (Negative) Urine Urobilinogen (<2.0) mg/dL Ur Leukocyte Esterase (Negative) Urine RBC (0-5) /hpf Urine WBC (0-5) /hpf Urine WBC Clumps (None) /hpf Ur Squamous Epith Cells (0-4) /hpf Urine Bacteria (None) /hpf Hyaline Casts (0-2) /lpf Urine Mucus (None) /hpf Urine Yeast (Budding) (None) /hpf Coronavirus (PCR) Not Detected (Not Detectd) 01/04/21 01/04/21 Range/Units 16:05 16:45 WBC (3.8-10.6) k/uL RBC (3.80-5.40) m/uL Hgb (11.4-16.0) gm/dL Hct (34.0-46.0) % MCV (80.0-100.0) fL MCH (25.0-35.0) pg MCHC (31.0-37.0) g/dL RDW (11.5-15.5) % Plt Count (150-450) k/uL MPV Neutrophils % % Lymphocytes % % Monocytes % % Eosinophils % % Basophils % % Neutrophils # (1.3-7.7) k/uL Lymphocytes # (1.0-4.8) k/uL Monocytes # (0-1.0) k/uL Eosinophils # (0-0.7) k/uL Basophils # (0-0.2) k/uL Manual Slide Review PT (9.0-12.0) sec INR (<1.2) APTT (22.0-30.0) sec Sodium (137-145) mmol/L Potassium (3.5-5.1) mmol/L Chloride (98-107) mmol/L Carbon Dioxide (22-30) mmol/L Anion Gap mmol/L BUN (7-17) mg/dL Creatinine (0.52-1.04) mg/dL Est GFR (CKD-EPI)AfAm (>60 ml/min/1.73 sqM) Est GFR (CKD-EPI)NonAf (>60 ml/min/1.73 sqM) Glucose (74-99) mg/dL POC Glucose (mg/dL) (75-99) mg/dL POC Glu Sales Representative Publications ID Lactic Ac Sepsis Rflx Y Plasma Lactic Acid Fabio 2.2 H* (0.7-2.0) mmol/L Calcium (8.4-10.2) mg/dL Magnesium (1.6-2.3) mg/dL Total Bilirubin (0.2-1.3) mg/dL AST (14-36) U/L ALT (4-34) U/L Alkaline Phosphatase (38-126) U/L Troponin I (0.000-0.034) ng/mL Total Protein (6.3-8.2) g/dL Albumin (3.5-5.0) g/dL Urine Color Urine Appearance (Clear) Urine pH (5.0-8.0) Ur Specific [place] (1.001-1.035) Urine Protein (Negative) Urine Glucose (UA) (Negative) Urine Ketones (Negative) Urine Blood (Negative) Urine Nitrite (Negative) Urine Bilirubin (Negative) Urine Urobilinogen (<2.0) mg/dL Ur Leukocyte Esterase (Negative) Urine RBC (0-5) /hpf Urine WBC (0-5) /hpf Urine WBC Clumps (None) /hpf Ur Squamous Epith Cells (0-4) /hpf Urine Bacteria (None) /hpf Hyaline Casts (0-2) /lpf Urine Mucus (None) /hpf Urine Yeast (Budding) (None) /hpf Coronavirus (PCR) (Not Detectd) Disposition Clinical Impression: Lactic acidosis Disposition: ADMITTED IP TO THIS [facility] Condition: Fair Decision Time: 15:05
[2021-01-04 13:21] LABS: Glucose,Whole Blood 235 mg/dL (75-99)
[2021-01-04 13:53] LABS: Albumin 3.8 g/dL (3.5-5.0); Magnesium 2.1 mg/dL (1.6-2.3); Potassium 4.3 mmol/L (3.5-5.1); Total Bilirubin 0.4 mg/dL (0.2-1.3)
[2021-01-04 13:56] LABS: Basophils # (A) 0.1 k/uL (0-0.2); Basophils % (A) 1 %; Eosinophils # (A) 0.3 k/uL (0-0.7); Eosinophils % (A) 2 %; HCT 43.6 % (34.0-46.0); HGB 14.4 gm/dL (11.4-16.0); Lymphocytes # (A) 5.1 k/uL (1.0-4.8); Lymphocytes % (A) 34 %; MCH 28.6 pg (25.0-35.0); MCV 86.6 fL (80.0-100.0); Mean Platelet Volume 8.5; Monocytes # (A) 0.6 k/uL (0-1.0); Monocytes % (A) 4 %; Neutrophils # (A) 8.7 k/uL (1.3-7.7); Neutrophils % (A) 59 %; Platelet Count 357 k/uL (150-450); RBC 5.03 m/uL (3.80-5.40); RDW 13.1 % (11.5-15.5); WBC 14.8 k/uL (3.8-10.6)
--- NOTE | 2021-01-04 14:08 | XR ---
EXAMINATION TYPE: XR chest 1V portable DATE OF EXAM: 01/04/2021 COMPARISON: NONE HISTORY: 12/24/2020 TECHNIQUE: Single frontal view of the chest is obtained. FINDINGS: There is no focal air space opacity, pleural effusion, or pneumothorax seen. The cardiac silhouette size is within normal limits. The osseous structures are intact. Suggestion of stimulato r device. Patchy subsegmental areas of consolidation. IMPRESSION: 1. Atelectasis favored over early pneumonia correlate clinically.
[2021-01-04] MEDS ORDERED: HYDROmorphone 0.5 MG/0.5 ML SYRINGE IVP STA (14:48)
[2021-01-04] MEDS ORDERED: HYDROmorphone 0.5 MG/0.5 ML SYRINGE IVP PRN (15:07)
[2021-01-04] MEDS ORDERED: NALOXONE 0.4 MG/ML 1 ML VIAL IV PRN (15:07)
[2021-01-04 15:16] LABS: Appearance,Urine Turbid (Clear); Bacteria,Urine Many /hpf; Bilirubin,Urine Negative (Negative); Blood,Urine Negative (Negative); Budding Yeast,Urine Many /hpf; Color,Urine Yellow; Glucose,Urine (UA) Trace (Negative); Hyaline Casts,Urine 76 /lpf (0-2); Ketones,Urine Negative (Negative); Leukocyte Esterase,Urine Large (Negative); Mucus,Urine Many /hpf; Nitrite,Urine Negative (Negative); PH, Urine 5.5 (5.0-8.0); Protein,Urine 2+ (Negative); RBC,Urine 4 /hpf (0-5); Specific Gravity,Urine 1.021 (1.001-1.035); Squamous Epithelial Cell,Urine 3 /hpf (0-4); WBC,Urine >182 /hpf (0-5)
[2021-01-04] MEDS: SODIUM CHLORIDE 0.9% 1,000 ML IV SCH (15:24)
[2021-01-04] MEDS ORDERED: cefTRIAXone IN SWFI 1,000 MG/10 ML SYRINGE IVP STA (15:59)
--- NOTE | 2021-01-04 16:11 | P.HPIM ---
History of Present Illness H&P Date: 01/04/21 Chief Complaint: Presyncope This is a 70-year-old female with a very complex past medical history noted below who was brought into the emergency room after she had a presyncopal episode at home. Patient is a very poor historian and most of the history was obtained by her daughter at bedside. Patient was at home today doing physical therapy and appeared tired. She subsequently sat down in her walker and was found ''slumped down''and not responsive. Her daughter told me that her eyes are open but she wouldn't respond to her. She checked her blood glucose and was around 250 and then called EMS to bring her to the emergency room. Patient is currently awake and alert. She does not have recollection of what happened at home. She said that she was not feeling well and vomited twice at home. She also vomited once on arrival to the emergency room. She denies any abdominal pain. She had a normal bowel movement yesterday. Patient otherwise denies any shortness of breath or chest pain. She was recently discharged from the hospital approximately 10 days ago after being diagnosed with a non-STEMI and having a heart cath showing mild to moderate disease involving the LAD at is managed medically. Patient was evaluated in the ER and was found to have low blood pressure with a systolic in the 90s. Lactic acid was elevated. Lab work showed evidence of dehydration with elevated creatinine. Patient also had an underlying UTI. She'll be admitted to the hospital for further management. Review of Systems Review of system: 14 points review of systems were obtained and were negative except to what were mentioned in the HPI. Past Medical History Past Medical History: Atrial Fibrillation, Cancer, CVA/TIA, Diabetes Mellitus, Hyperlipidemia, Hypertension Additional Past Medical History / Comment(s): Hepatocellular carcinoma (in remission), had one dose of chemo 2015, TIA X4, hiatal hernia, spinal stenosis, degenerative disc disease involving L3 and L4, diabetic peripheral neuropathy, hyperactive bladder, history of septic left knee joint post arthroplasty. r estless leg syndrome. patient states [facility] comes out 2x/week 12/31 History of Any Multi-Drug Resistant Organisms: MRSA Date of last positivie culture/infection: 2010 MDRO Source:: Left knee Past Surgical History: Adenoidectomy, Bariatric Surgery, Cholecystectomy, Heart Catheterization With Stent, Hernia Repair, Hysterectomy, Joint Replacement, Orthopedic Surgery, Tonsillectomy Additional Past Surgical History / Comment(s): Lap band placed in 2004, prolap sed & removed in 2005, neuro stimulator in back, one stent to LAD, left knee arthroscopic surgery, right total knee arthroplasty, left total knee arthroplasty 10/01/2011, repair of quadriceps tendon 08/21/2011, left knee patellar tendon repair 09/24/2011, removal of the hardware of the left total kn ee arthroplasty with implantation of the antibiotic spacer October 08 2011, total left knee hardware replacement in May 2012,. trigger finger, left hand in 2003 with subsequent reversal in 2005. Uses a walker or wheelchair Past Anesthesia/Blood Transfusion Reactions: No Reported Reaction Date of Last Stent Placement:: 05/17/2010 Past Psychological History: Anxiety, Depression Smoking Status: Never smoker Past Alcohol Use History: None Reported Past Drug Use History: None Reported - Past Family History Mother Family Medical History: Congestive Heart Failure (CHF) Father Family Medical History: Myocardial Infarction ([place]) Additional Family Medical History / Comment(s): Father at the age of 59 yrs from [place] Medications and Allergies Home Medications Medication Instructions Recorded Confirmed Type Pantoprazole Sodium 40 mg PO DAILY 08/10/14 12/24/20 History Solifenacin Succinate [Vesicare] 10 mg PO HS 08/10/14 12/24/20 History Ondansetron [Zofran] 4 mg PO Q8H PRN 03/26/16 12/24/20 History Venlafaxine HCl [Effexor] 75 mg PO QAM 05/18/17 12/24/20 History Venlafaxine HCl [Effexor] 150 mg PO HS 05/18/17 12/24/20 History bisacodyL [Dulcolax] 5 mg PO QAM 05/18/17 12/24/20 History rOPINIRole HCL [Requip] 0.25 mg PO HS PRN 06/06/19 12/24/20 History INSULIN ASPART (NovoLOG) [NovoLOG See Protocol SQ AC-TID 12/09/19 12/24/20 History (formulary)] Ferrous Gluconate 324 mg PO DAILY 05/08/20 12/24/20 History Calcium Carbonate [Calcium] 600 mg PO DAILY 12/04/20 12/24/20 History Ergocalciferol (Vitamin D2) 50 mcg PO DAILY 12/04/20 12/24/20 History [Vitamin D2 (2000 Iu)] Nystatin 100,000 Unit/gm Powd 1 applic TOPICAL BID PRN 12/04/20 12/24/20 History [Mycostatin Powder] Gabapentin [Neurontin] 300 mg PO HS #3 cap 12/07/20 12/24/20 Rx Insulin Glargine,Hum.rec.anlog 30 unit SQ HS #0 12/07/20 12/24/20 Rx [Lantus Solostar] Lisinopril-Hctz 10-12.5 mg 1 tab PO DAILY #30 tab 12/07/20 12/24/20 Rx [Zestoretic 10-12.5] QUEtiapine [SEROquel] 50 mg PO HS #30 tab 12/07/20 12/24/20 Rx Aspirin 81 mg PO DAILY #90 chewable 12/25/20 Rx Atorvastatin [Lipitor] 80 mg PO DAILY #30 tab 12/25/20 Rx Clopidogrel [Plavix] 75 mg PO DAILY #30 tab 12/25/20 Rx INSULIN ASPART (NovoLOG) [NovoLOG 6 unit SQ AC-TID #1 vial 12/25/20 Rx (formulary)] Metoprolol Tartrate [Lopressor] 25 mg PO BID #60 tab 12/25/20 Rx Nitroglycerin Sl Tabs [Nitrostat] 0.4 mg SUBLINGUAL Q5M PRN #20 tab 12/25/20 Rx Allergies Allergy/AdvReac Type Severity Reaction Status Date / Time metformin HCl Allergy "kidneys Verified 01/04/21 12:45 [From Glucophage] shut down" Physical Exam Vitals: Vital Signs Temp Pulse Resp BP Pulse Ox 01/04/21 14:55 71 20 116/61 98 01/04/21 12:45 98 F 80 16 90/68 96 Intake and Output 01/04/21 01/04/21 01/04/21 06:59 14:59 22:59 Other: Weight 89.358 kg General: The patient is awake and alert, in no distress Eye: there is normal conjunctiva bilaterally. Neck: The neck is supple, there is no JVD. Cardiovascular: Normal S1-S2, no S3-S4, no murmurs. Respiratory: Lungs clear to auscultation bilaterally Gastrointestinal: Abdomen is soft, nontender Musculoskeletal: There is no pedal edema. Neurological:. Speech is normal. Skin: Skin is warm and dry Results CBC & Chem 7: 01/04/21 13:16 01/04/21 13:16 Labs: Abnormal Lab Results - Last 24 Hours (Table) 01/04/21 01/04/21 01/04/21 Range/Units 13:16 13:16 13:16 WBC 14.8 H (3.8-10.6) k/uL Neutrophils # 8.7 H (1.3-7.7) k/uL Lymphocytes # 5.1 H (1.0-4.8) k/uL BUN 30 H (7-17) mg/dL Creatinine 1.57 H (0.52-1.04) mg/dL Glucose 261 H (74-99) mg/dL POC Glucose (mg/dL) (75-99) mg/dL Plasma Lactic Acid Fabio 4.2 H* (0.7-2.0) mmol/L AST 40 H (14-36) U/L Alkaline Phosphatase 165 H (38-126) U/L Urine Appearance (Clear) Urine Protein (Negative) Urine Glucose (UA) (Negative) Ur Leukocyte Esterase (Negative) Urine WBC (0-5) /hpf Urine WBC Clumps (None) /hpf Urine Bacteria (None) /hpf Hyaline Casts (0-2) /lpf Urine Mucus (None) /hpf Urine Yeast (Budding) (None) /hpf 01/04/21 01/04/21 Range/Units 13:16 13:19 WBC (3.8-10.6) k/uL Neutrophils # (1.3-7.7) k/uL Lymphocytes # (1.0-4.8) k/uL BUN (7-17) mg/dL Creatinine (0.52-1.04) mg/dL Glucose (74-99) mg/dL POC Glucose (mg/dL) 235 H (75-99) mg/dL Plasma Lactic Acid Fabio (0.7-2.0) mmol/L AST (14-36) U/L Alkaline Phosphatase (38-126) U/L Urine Appearance Turbid H (Clear) Urine Protein 2+ H (Negative) Urine Glucose (UA) Trace H (Negative) Ur Leukocyte Esterase Large H (Negative) Urine WBC >182 H (0-5) /hpf Urine WBC Clumps Many H (None) /hpf Urine Bacteria Many H (None) /hpf Hyaline Casts 76 H (0-2) /lpf Urine Mucus Many H (None) /hpf Urine Yeast (Budding) Many H (None) /hpf Assessment and Plan Assessment: This is a 70-year-old female with past medical history noted below who presented to the emergency room with presyncopal episode. Patient was evaluated in the ER and admitted to the hospital for further management of her medical problems noted below. 1. Presyncopal episode, most likely secondary to dehydration and low blood pressure. Continue IV fluid hydration and check orthostatic blood pressure every shift. Echocardiogram done last month showed ejection fraction preserved and no significant valvular abnormalities. CT angiogram of the neck done last month showed some peaking in the right internal carotid artery with no hemodynamically significant stenosis 2. Urinary tract infection: Start IV ceftriaxone awaiting urine culture. Obtain ultrasound of the kidney to rule out possible pyelonephritis. Check bladder scan to rule out retention 3. Lactic acidosis: Secondary to hypotension. Patient received a liter IV fluid bolus in the ER. Continue gentle IV fluid hydration. 4. Acute kidney injury on stage IIIB chronic kidney disease. Prerenal. Continue IV fluid hydration 6. Coronary artery disease status post left heart catheterization 3 weeks ago during last hospitalization showing mild to moderate disease of the LAD. Managed medically. 7. Chronic medical problems: Type 2 diabetes, essential hypertension, hyperlipidemia, paroxysmal atrial fibrillation not on anticoagulation, underlying cognitive impairment/dementia, chronic gait dysfunction mostly wheelchair bound. 8. CODE STATUS: Patient is DO NOT RESUSCITATE/DO NOT INTUBATE. Discussed with her daughter at bedside
[2021-01-04 17:12] LABS: INR 0.9 (<1.2)
[2021-01-04 17:21] LABS: Partial Thromboplastin Time 91.9 sec (22.0-30.0)
--- NOTE | 2021-01-04 19:17 | US ---
EXAMINATION TYPE: US kidneys/renal and bladder DATE OF EXAM: 01/04/2021 COMPARISON: CT 09/29/2019, US 03/28/2014. CLINICAL HISTORY: Rule out pyelonephritis. Rule out pyelonephritis. EXAM MEASUREMENTS: Right Kidney: 10.5 x 4.9 x 4.5 cm Left Kidney: 8.2 x 4.4 x 4.7 cm Limited due to patient body habitus and gas. Right Kidney: Hypoechoic area seen inferiorly measuring 1.1 x 1.2 x 0.7 cm-possibly exophytic, sugges tive of cyst. Complex area seen superior pole measuring 1.7 x 1.4 x 2.0, suggesting of cyst No hydro nephrosis. Left Kidney: Limited visibility. Measures small. Left kidney appears to be heterogeneous. Hypoechoic, heterogeneous, and indistinct area seen measuring 3.2 x 2.8 x 2.9 cm. No significant hydronephrosi s. Lateral to the left kidney, there appears to be an indistinct hypoechoic area measuring 4.0 x 2.4 x 2 .0 cm. Bladder: Not visualized. Bilateral Jets seen: No IMPRESSION: No bilateral hydronephrosis. Bilateral renal cortical based lesions may represent simple and complex cysts. However 4 cm left mindy l lesion is indeterminate and a no definite correlate on most recent CT. Recommend contrast enhanced CT for further evaluation.
[2021-01-04 20:44] LABS: Glucose,Whole Blood 294 mg/dL (75-99)
[2021-01-04] MEDS: GABAPENTIN 300 MG CAP PO SCH (20:47)
[2021-01-04] MEDS: METOPROLOL TARTRATE 25 MG TAB PO SCH (20:47)
[2021-01-04] MEDS: QUEtiapine 50 MG TAB PO SCH (20:48)
[2021-01-04] MEDS: VENLAFAXINE HCL 75 MG TAB PO SCH (21:36)
[2021-01-04 23:04] LABS: Glucose,Whole Blood 403 mg/dL (75-99)
[2021-01-04] MEDS: INSULIN DETEMIR (LEVEMIR) 100 UNIT/ML SYR SQ SCH (23:21)
[2021-01-04] MEDS: ACETAMINOPHEN TAB 325 MG TAB PO PRN (23:21)
[2021-01-05] MEDS: SODIUM CHLORIDE 0.9% 1,000 ML IV SCH ×2 (04:32→17:05)
[2021-01-05 05:00] LABS: Calcium 8.5 mg/dL (8.4-10.2); Potassium 4.6 mmol/L (3.5-5.1)
[2021-01-05 06:58] LABS: Glucose,Whole Blood 191 mg/dL (75-99)
[2021-01-05] MEDS: INSULIN ASPART (NovoLOG) 100 UNIT/ML VIAL SQ SCH ×6 (06:58→17:06)
[2021-01-05] MEDS: PANTOPRAZOLE 40 MG TABLET PO SCH (08:53)
[2021-01-05] MEDS ORDERED: PANTOPRAZOLE 40 MG/10 ML VIAL IV SCH (09:00)
[2021-01-05] MEDS ORDERED: ASPIRIN 325 MG TAB PO SCH (09:00)
[2021-01-05] MEDS: ATORVASTATIN 80 MG TAB PO SCH (09:06)
[2021-01-05] MEDS: ASPIRIN 81 MG PO SCH (09:06)
[2021-01-05] MEDS: FERROUS SULFATE 325 MG TAB PO SCH (09:06)
[2021-01-05] MEDS: CLOPIDOGREL 75 MG TAB PO SCH (09:06)
[2021-01-05] MEDS: METOPROLOL TARTRATE 25 MG TAB PO SCH ×2 (09:07→19:58)
[2021-01-05] MEDS: DOCUSATE 100 MG CAP PO SCH (09:07)
[2021-01-05] MEDS: VENLAFAXINE HCL 75 MG TAB PO SCH ×2 (09:07→19:58)
--- NOTE | 2021-01-05 10:54 | P.CRDCN ---
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 She was admitted here on December 25 secondary to unstable angina and underwent cardiac catheterization revealing calcified LAD and circumflex with a plaque noted in the mid LAD. At that time her symptoms and troponin elevation with thoughts be related to plaque rupture and her medical therapy was optimized. She is seen and examined resting comfortably lying flat in bed in no acute distress. She is unclear why she is at the hospital. Information is obtained from the medical record and nursing st [facility]. Apparently she was working at home yesterday with physical therapy when she had verbalized she felt dizzy. She was assisted to a sitting position where she had an episode lasting about 10 minutes where she was verbally unresponsive however her eyes were open. She denies chest pain, shortness of breath, dizziness or palpitations. Most recent echocardiogram obtained November 2020 revealed preserved LV systolic function with ejection fraction 55-60%. DIAGNOSTICS EKG reveals sinus mechanism with no acute changes. Telemetry tracings indicate sinus mechanism. Chest xray atelectasis or possible early pneumonia. Laboratory reviewed, WBC 14.8, hgb 14.4, plt 357, sodium 141, potassium 4.3, cre atinine 1.57 on admission repeat today 1.64, lactic acid on admission 4.2 repeat today 1.6, troponin negative 1 and magnesium 2.1. Current cardiac medications include aspirin 325 mg daily, Lopressor 25 mg twice a day, atorvastatin 80 mg daily, Plavix 75 mg daily, lisinopril/hydrochlorothiazide 10/12.5 mg daily and amlodipine 10 mg daily. REVIEW OF SYSTEMS At the time of my exam: CONSTITUTIONAL: Denies fever or chills. CARDIOVASCULAR: Denies chest pain, shortness of breath, orthopnea, PND or p alpitations. RESPIRATORY: Denies cough. GASTROINTESTINAL: Denies abdominal pain, diarrhea, constipation, nausea or vomiting. MUSCULOSKELETAL: Denies myalgias. NEUROLOGIC: Denies numbness, tingling, headacbe or weakness. ENDOCRINE: Denies fatigue, weight change, polydipsia or polyurina. GENITOURINARY: Denies burning, hematuria or urgency with micturation. HEMATOLOGIC: Denies history of anemia or bleeding. PHYSICAL EXAMINATION Blood pressure 104/54 heart rate 62 afebrile and maintaining oxygen saturation on room air. CONSTITUTIONAL: No apparent distress. HEENT: Head is normocephalic. Pupils are equal, round. Sclerae anicteric. Mucous membranes of the mouth are moist. No JVD. No carotid bruit. CHEST EXAMINATION: Lungs are clear to auscultation. No chest wall tenderness is noted on palpation or with deep breathing. HEART EXAMINATION: Regular rate and rhythm. S1, S2 heard. No murmurs, gallops or rub. ABDOMEN: Soft, nontender. Positive bowel sounds. EXTREMITIES: 2+ peripheral pulses, no lower extremity edema and no calf tenderness. NEUROLOGIC EXAMINATION: Patient is awake, alert and oriented x3. ASSESSMENT Near syncope, likely secondary to hypotension Lactic acidosis Leukocytosis Urinary tract infection Acute kidney injury Coronary artery disease maintained on dual antiplatelet therapy Hypertension Dyslipidemia Diabetes mellitus PLAN Episode of near syncope while doing physical therapy likely related to hypotension. No evidence of arrhythmia noted on telemetry or EKG's since arrival. Hold amlodipine, lisinopril and hydrochlorothiazide. Continue to monitor blood pressure closely. Repeat renal function in the morning. Decrease aspirin to 81 mg daily and continue Plavix 75 mg daily. Thank you kindly for this consultation. Nurse Practitioner note has been reviewed, I agree with a documented findings and plan of care. Patient was seen and examined. Past Medical History Past Medical History: Atrial Fibrillation, Cancer, CVA/TIA, Diabetes Mellitus, Hyperlipidemia, Hypertension Additional Past Medical History / Comment(s): Hepatocellular carcinoma (in remission), had one dose of chemo 2014, TIA X4, hiatal hernia, spinal stenosis, degenerative disc disease involving L3 and L4, diabetic peripheral neuropathy, hyperactive bladder, history of septic left knee joint post arthroplasty. restless leg syndrome. patient states [facility] comes out 2x/week 12/31 History of Any Multi-Drug Resistant Organisms: MRSA Date of last positivie culture/infection: 2010 MDRO Source:: Left knee Past Surgical History: Adenoidectomy, Bariatric Surgery, Cholecystectomy, Heart Catheterization With Stent, Hernia Repair, Hysterectomy, Joint Replacement, Orthopedic Surgery, Tonsillectomy Additional Past Surgical History / Comment(s): Lap band placed in 2003, prolapsed & removed in 2005, neuro stimulator in back, one stent to LAD, left knee arthroscopic surgery, right total knee arthroplasty, left total knee arthroplasty 10/01/2011, repair of quadriceps tendon 08/21/2011, left knee patellar tendon repair 09/24/2011, removal of the hardware of the left total knee arthroplasty with implantation of the antibiotic spacer October 08 2011, total left knee hardware replacement in May 2012,. trigger finger, left hand in 2003 with subsequent reversal in 2005. Uses a walker or wheelchair Past Anesthesia/Blood Transfusion Reactions: No Reported Reaction Additional Past Anesthesia/Blood Transfusion Reaction / Comment(s): has woken up during a procedure while under anesthesia Date of Last Stent Placement:: 12/24/20 Past Psychological History: Anxiety, Depression Additional Psychological History / Comment(s): Pt resides with her katie, Sonam and her son in law. She ambulates rarely with a walker, mostly is in a wheelchair. Pt feeds herself. Daughter Sonam is pt's DPOA and caregiver. Smoking Status: Never smoker Past Alcohol Use History: None Reported Past Drug Use History: None Reported - Past Family History Mother Family Medical History: Congestive Heart Failure (CHF) Father Family Medical History: Myocardial Infarction ([place]) Additional Family Medical History / Comment(s): Father at the age of 59 yrs from [place] Medications and Allergies Home Medications Medication Instructions Recorded Confirmed Type Pantoprazole Sodium 40 mg PO DAILY 08/10/14 01/04/21 History Solifenacin Succinate [Vesicare] 10 mg PO HS 08/10/14 01/04/21 History Venlafaxine HCl [Effexor] 75 mg PO QA 05/18/17 01/04/21 History Venlafaxine HCl [Effexor] 150 mg PO HS 05/18/17 01/04/21 History rOPINIRole HCL [Requip] 0.25 mg PO HS 06/06/19 01/04/21 History INSULIN ASPART (NovoLOG) [NovoLOG See Protocol SQ AC-TID 12/09/19 01/04/21 History (formulary)] Ferrous Gluconate 324 mg PO DAILY 05/08/20 01/04/21 History Gabapentin [Neurontin] 300 mg PO HS #3 cap 12/07/20 01/04/21 Rx Insulin Glargine,Hum.rec.anlog 30 unit SQ HS #0 12/07/20 01/04/21 Rx [Lantus Solostar] Lisinopril-Hctz 10-12.5 mg 1 tab PO DAILY #30 tab 12/07/20 01/04/21 Rx [Zestoretic 10-12.5] QUEtiapine [SEROquel] 50 mg PO HS #30 tab 12/07/20 01/04/21 Rx Atorvastatin [Lipitor] 80 mg PO DAILY #30 tab 12/25/20 01/04/21 Rx Clopidogrel [Plavix] 75 mg PO DAILY #30 tab 12/25/20 01/04/21 Rx INSULIN ASPART (NovoLOG) [NovoLOG 6 unit SQ AC-TID #1 vial 12/25/20 01/04/21 Rx (formulary)] Metoprolol Tartrate [Lopressor] 25 mg PO BID #60 tab 12/25/20 01/04/21 Rx Nitroglycerin Sl Tabs [Nitrostat] 0.4 mg SUBLINGUAL Q5M PRN #20 tab 12/25/20 01/04/21 Rx Aspirin 325 mg PO DAILY 01/04/21 01/04/21 History Calcium/Magnesium/Zinc 1 tab PO DAILY 01/04/21 01/04/21 History [Yqdqayj-Depfwaqnz-Ovdv Tablet] Cholecalciferol [Vitamin D3 (25 25 mcg PO DAILY 01/04/21 01/04/21 History Mcg = 1000 Iu)] Docusate [Colace] 100 mg PO DAILY 01/04/21 01/04/21 History amLODIPine [Norvasc] 10 mg PO HS 01/04/21 01/04/21 History Allergies Allergy/AdvReac Type Severity Reaction Status Date / Time metformin HCl Allergy "kidneys Verified 01/04/21 16:14 [From Glucophage] shut down" paper tape AdvReac Itching Uncoded 01/05/21 00:46 Physical Exam Vitals: Vital Signs Temp Pulse Pulse Resp BP BP Pulse Ox 01/05/21 04:00 98.5 F 62 17 104/54 95 01/04/21 23:54 97.7 F 77 16 126/89 94 L 01/04/21 20:00 97.7 F 69 16 130/63 96 01/04/21 18:30 98.6 F 77 20 102/60 97 01/04/21 18:23 97.9 F 70 16 125/60 97 01/04/21 16:53 65 20 116/78 98 01/04/21 14:55 71 20 116/61 98 01/04/21 12:45 98 F 80 16 90/68 96 Intake and Output 01/04/21 01/05/21 01/05/21 22:59 06:59 14:59 Intake Total 360 Balance 360 Intake: Oral 360 Other: # Voids 0 Weight 89.358 kg 89.8 kg Results 01/04/21 13:16 01/05/21 04:29 Cardiac Enzymes 01/04/21 01/04/21 Range/Units 13:16 13:16 AST 40 H (14-36) U/L Troponin I <0.012 (0.000-0.034) ng/mL Coagulation 01/04/21 01/04/21 Range/Units 16:05 21:51 PT 10.0 (9.0-12.0) sec APTT 91.9 H 20.4 L (22.0-30.0) sec CBC 01/04/21 Range/Units 13:16 WBC 14.8 H (3.8-10.6) k/uL RBC 5.03 (3.80-5.40) m/uL Hgb 14.4 (11.4-16.0) gm/dL Hct 43.6 (34.0-46.0) % Plt Count 357 (150-450) k/uL Comprehensive Metabolic Panel 01/04/21 01/05/21 Range/Units 13:16 04:29 Sodium 141 135 L (137-145) mmol/L Potassium 4.3 4.6 (3.5-5.1) mmol/L Chloride 104 105 (98-107) mmol/L Carbon Dioxide 24 21 L (22-30) mmol/L BUN 30 H 35 H (7-17) mg/dL Creatinine 1.57 H 1.64 H (0.52-1.04) mg/dL Glucose 261 H 286 H (74-99) mg/dL Calcium 10.0 8.5 (8.4-10.2) mg/dL AST 40 H (14-36) U/L ALT 31 (4-34) U/L Alkaline Phosphatase 165 H (38-126) U/L Total Protein 7.0 (6.3-8.2) g/dL Albumin 3.8 (3.5-5.0) g/dL Current Medications Generic Name Dose Route Start Last Admin Trade Name Freq PRN Reason Stop Dose Admin Acetaminophen 650 mg 01/04/21 15:07 01/04/21 23:21 Acetaminophen Tab 325 Mg Tab PO 650 mg Q6HR PRN Administration Mild Pain or Fever > 100.5 Aspirin 81 mg 01/05/21 09:00 01/05/21 09:06 Aspirin 81 Mg PO 81 mg DAILY BRANDY Administration Atorvastatin Calcium 80 mg 01/05/21 09:00 01/05/21 09:06 Atorvastatin 80 Mg Tab PO 80 mg DAILY BRANDY Administration Clopidogrel Bisulfate 75 mg 01/05/21 09:00 01/05/21 09:06 Clopidogrel 75 Mg Tab PO 75 mg DAILY BRANDY Administration Docusate Sodium 100 mg 01/05/21 09:00 01/05/21 09:07 Docusate 100 Mg Cap PO 100 mg DAILY BRANDY Administration Ferrous Sulfate 325 mg 01/05/21 09:00 01/05/21 09:06 Ferrous Sulfate 325 Mg Tab PO 325 mg DAILY BRANDY Administration Gabapentin 300 mg 01/04/21 21:00 01/04/21 20:47 Gabapentin 300 Mg Cap PO 300 mg HS BRADNY Administration Sodium Chloride 1,000 mls @ 90 mls/hr 01/04/21 15:15 01/05/21 04:32 Saline 0.9% IV Not Given .Q11H7M [facility] Ceftriaxone Sodium 1 gm/ 50 mls @ 100 mls/hr 01/05/21 09:00 01/05/21 09:07 Sodium Chloride IVPB 100 mls/hr Q24HR BRANDY Administration Insulin Aspart 6 unit 01/05/21 07:30 01/05/21 06:58 Insulin Aspart (Novolog) 100 Unit/Ml Vial SQ 6 unit AC-TID BRANDY Administration Insulin Aspart 0 unit 01/05/21 07:30 01/05/21 06:59 Insulin Aspart (Novolog) 100 Unit/Ml Vial SQ Not Given AC-TID [facility] Protocol Insulin Detemir 30 unit 01/04/21 23:00 01/04/21 23:21 Insulin Detemir (Levemir) 100 Unit/Ml Syr SQ 30 unit HS BRANDY Administration Metoprolol Tartrate 25 mg 01/04/21 21:00 01/05/21 09:07 Metoprolol Tartrate 25 Mg Tab PO 25 mg BID BRANDY Administration Naloxone HCl 0.2 mg 01/04/21 15:07 Naloxone 0.4 Mg/Ml 1 Ml Vial IV Q2M PRN Opioid Reversal Ondansetron HCl 4 mg 01/04/21 15:07 Ondansetron 4 Mg/2 Ml Vial IVP Q8HR PRN Nausea And Vomiting Pantoprazole Sodium 40 mg 01/05/21 09:00 01/05/21 09:07 Pantoprazole 40 Mg/10 Ml Vial IV 40 mg DAILY BRANDY Administration Pantoprazole Sodium 40 mg 01/05/21 09:00 01/05/21 08:53 Pantoprazole 40 Mg Tablet PO Not Given DAILY BRANDY Quetiapine Fumarate 50 mg 01/04/21 21:00 01/04/21 20:48 Quetiapine 50 Mg Tab PO 50 mg HS BRANDY Administration Ropinirole HCl 0.25 mg 01/04/21 21:00 01/04/21 20:47 Ropinirole Hcl 0.25 Mg Tab PO 0.25 mg HS BRANDY Administration Venlafaxine HCl 75 mg 01/05/21 09:00 01/05/21 09:07 Venlafaxine Hcl 75 Mg Tab PO 75 mg QAM BRANDY Administration Venlafaxine HCl 150 mg 01/04/21 21:00 01/04/21 21:36 Venlafaxine Hcl 75 Mg Tab PO 150 mg HS BRANDY Administration Intake and Output 01/04/21 01/05/21 01/05/21 22:59 06:59 14:59 Intake Total 360 Balance 360 Intake: Oral 360 Other: # Voids 0 Weight 89.358 kg 89.8 kg 01/04/21 13:16 01/05/21 04:29
--- NOTE | 2021-01-05 10:55 | P.PN ---
Objective - Vital Signs Vital signs: Vital Signs Temp 98.5 F 01/05/21 04:00 Pulse 62 01/05/21 04:00 Resp 17 01/05/21 04:00 BP 104/54 01/05/21 04:00 Pulse Ox 95 01/05/21 04:00 Intake & Output 01/04/21 01/05/21 01/05/21 18:59 06:59 18:59 Intake Total 360 Balance 360 Weight 89.358 kg 89.8 kg Intake: Oral 360 Other: # Voids 0 - Labs CBC & Chem 7: 01/04/21 13:16 01/05/21 04:29 Labs: Abnormal Lab Results - Last 24 Hours (Table) 01/04/21 01/04/21 01/04/21 Range/Units 13:16 13:16 13:16 WBC 14.8 H (3.8-10.6) k/uL Neutrophils # 8.7 H (1.3-7.7) k/uL Lymphocytes # 5.1 H (1.0-4.8) k/uL APTT (22.0-30.0) sec Sodium (137-145) mmol/L Carbon Dioxide (22-30) mmol/L BUN 30 H (7-17) mg/dL Creatinine 1.57 H (0.52-1.04) mg/dL Glucose 261 H (74-99) mg/dL POC Glucose (mg/dL) (75-99) mg/dL Plasma Lactic Acid Fabio 4.2 H* (0.7-2.0) mmol/L AST 40 H (14-36) U/L Alkaline Phosphatase 165 H (38-126) U/L Urine Appearance (Clear) Urine Protein (Negative) Urine Glucose (UA) (Negative) Ur Leukocyte Esterase (Negative) Urine WBC (0-5) /hpf Urine WBC Clumps (None) /hpf Urine Bacteria (None) /hpf Hyaline Casts (0-2) /lpf Urine Mucus (None) /hpf Urine Yeast (Budding) (None) /hpf 01/04/21 01/04/21 01/04/21 Range/Units 13:16 13:19 16:05 WBC (3.8-10.6) k/uL Neutrophils # (1.3-7.7) k/uL Lymphocytes # (1.0-4.8) k/uL APTT 91.9 H (22.0-30.0) sec Sodium (137-145) mmol/L Carbon Dioxide (22-30) mmol/L BUN (7-17) mg/dL Creatinine (0.52-1.04) mg/dL Glucose (74-99) mg/dL POC Glucose (mg/dL) 235 H (75-99) mg/dL Plasma Lactic Acid Fabio (0.7-2.0) mmol/L AST (14-36) U/L Alkaline Phosphatase (38-126) U/L Urine Appearance Turbid H (Clear) Urine Protein 2+ H (Negative) Urine Glucose (UA) Trace H (Negative) Ur Leukocyte Esterase Large H (Negative) Urine WBC >182 H (0-5) /hpf Urine WBC Clumps Many H (None) /hpf Urine Bacteria Many H (None) /hpf Hyaline Casts 76 H (0-2) /lpf Urine Mucus Many H (None) /hpf Urine Yeast (Budding) Many H (None) /hpf 01/04/21 01/04/21 01/04/21 Range/Units 16:05 18:52 20:43 WBC (3.8-10.6) k/uL Neutrophils # (1.3-7.7) k/uL Lymphocytes # (1.0-4.8) k/uL APTT (22.0-30.0) sec Sodium (137-145) mmol/L Carbon Dioxide (22-30) mmol/L BUN (7-17) mg/dL Creatinine (0.52-1.04) mg/dL Glucose (74-99) mg/dL POC Glucose (mg/dL) 294 H (75-99) mg/dL Plasma Lactic Acid Fabio 2.2 H* 3.0 H* (0.7-2.0) mmol/L AST (14-36) U/L Alkaline Phosphatase (38-126) U/L Urine Appearance (Clear) Urine Protein (Negative) Urine Glucose (UA) (Negative) Ur Leukocyte Esterase (Negative) Urine WBC (0-5) /hpf Urine WBC Clumps (None) /hpf Urine Bacteria (None) /hpf Hyaline Casts (0-2) /lpf Urine Mucus (None) /hpf Urine Yeast (Budding) (None) /hpf 01/04/21 01/04/21 01/04/21 Range/Units 21:51 21:51 23:02 WBC (3.8-10.6) k/uL Neutrophils # (1.3-7.7) k/uL Lymphocytes # (1.0-4.8) k/uL APTT 20.4 L (22.0-30.0) sec Sodium (137-145) mmol/L Carbon Dioxide (22-30) mmol/L BUN (7-17) mg/dL Creatinine (0.52-1.04) mg/dL Glucose (74-99) mg/dL POC Glucose (mg/dL) 403 H (75-99) mg/dL Plasma Lactic Acid Fabio 3.6 H* (0.7-2.0) mmol/L AST (14-36) U/L Alkaline Phosphatase (38-126) U/L Urine Appearance (Clear) Urine Protein (Negative) Urine Glucose (UA) (Negative) Ur Leukocyte Esterase (Negative) Urine WBC (0-5) /hpf Urine WBC Clumps (None) /hpf Urine Bacteria (None) /hpf Hyaline Casts (0-2) /lpf Urine Mucus (None) /hpf Urine Yeast (Budding) (None) /hpf 01/05/21 01/05/21 01/05/21 Range/Units 01:03 04:29 06:56 WBC (3.8-10.6) k/uL Neutrophils # (1.3-7.7) k/uL Lymphocytes # (1.0-4.8) k/uL APTT (22.0-30.0) sec Sodium 135 L (137-145) mmol/L Carbon Dioxide 21 L (22-30) mmol/L BUN 35 H (7-17) mg/dL Creatinine 1.64 H (0.52-1.04) mg/dL Glucose 286 H (74-99) mg/dL POC Glucose (mg/dL) 191 H (75-99) mg/dL Plasma Lactic Acid Fabio 3.6 H* (0.7-2.0) mmol/L AST (14-36) U/L Alkaline Phosphatase (38-126) U/L Urine Appearance (Clear) Urine Protein (Negative) Urine Glucose (UA) (Negative) Ur Leukocyte Esterase (Negative) Urine WBC (0-5) /hpf Urine WBC Clumps (None) /hpf Urine Bacteria (None) /hpf Hyaline Casts (0-2) /lpf Urine Mucus (None) /hpf Urine Yeast (Budding) (None) /hpf Microbiology - Last 24 Hours (Table) 01/04/21 13:16 Urine Culture - Preliminary Urine,Clean Catch Assessment and Plan Assessment: This is a 70-year-old female with past medical history noted below who presented to the emergency room with presyncopal episode. Patient was evaluated in the ER and admitted to the hospital for further management of her medical problems noted below. 1. Presyncopal episode, most likely secondary to dehydration and low blood pressure. Awaiting orthostatic blood pressure as it was not done by nursing staff last night. Echocardiogram done last month showed ejection fraction preserved and no significant valvular abnormalities. CT angiogram of the neck done last month showed some peaking in the right internal carotid artery with no hemodynamically significant stenosis 2. Urinary tract infection: Started IV ceftriaxone awaiting urine culture. Bladder scan showed no evidence of retention. Ultrasound of the kidney showed no hydronephrosis or pyelonephritis. 3. Lactic acidosis: Secondary to hypotension. Resolved with IV fluid hydration 4. Acute kidney injury on stage IIIB chronic kidney disease. Prerenal. Continue IV fluid hydration 6. Coronary artery disease status post left heart catheterization 3 weeks ago during last hospitalization showing mild to moderate disease of the LAD. Managed medically. 7. Chronic medical problems: Type 2 diabetes, essential hypertension, hyperlipidemia, paroxysmal atrial fibrillation not on anticoagulation, underlying cognitive impairment/dementia, chronic gait dysfunction mostly wheelchair bound. 8. CODE STATUS: Patient is DO NOT RESUSCITATE/DO NOT INTUBATE. Discussed with her daughter at bedside on presentation
[2021-01-05] MEDS: ACETAMINOPHEN TAB 325 MG TAB PO PRN ×2 (11:43→18:34)
[2021-01-05 11:47] LABS: Glucose,Whole Blood 171 mg/dL (75-99)
[2021-01-05 14:05] VITALS: BMI 34.0
--- NOTE | 2021-01-05 16:01 | P.GSCN ---
History of Present Illness Consult date: 01/05/21 Reason for Consult: Carotid stenosis History of present illness: 70-year-old female with past medical history of carotid stenosis with previous hospitalization last month where she was worked up thoroughly for possible TIA/stroke. Upon evaluation last month it was noted that she had carotid stenosis noted on the right but CTA and carotid Doppler were in discordance with each other and therefore it was recommended that she would have an outpatient angiogram to further delineate level of disease. She presents back to the hospital for a presyncopal episode at home with physical therapy. According to the patient she states her daughter was told that she was walking and appeared tired and then became unresponsive after sitting down on her walker. She then states that her mother was nonresponsive to verbal stimuli and was staring. Maya bustillo called EMS at that time and she was taken to the emergency department. She also states that she has not been feeling well at home and was having nausea and did vomit twice. Currently she states she feels good and has no complaints of lateralizing symptoms such as weakness, vision changes or speech issues. She denies any fevers, chills, chest pain or shortness of breath. Review of Systems All systems: negative (What is mentioned in HPI past medical history) Past Medical History Past Medical History: Atrial Fibrillation, Cancer, CVA/TIA, Diabetes Mellitus, Hyperlipidemia, Hypertension Additional Past Medical History / Comment(s): Hepatocellular carcinoma (in remission), had one dose of chemo 2015, TIA X4, hiatal hernia, spinal stenosis, degenerative disc disease involving L3 and L4, diabetic peripheral neuropathy, hyperactive bladder, history of septic left knee joint post arthroplasty. restless leg syndrome. patient states [facility] home healthcare comes out 2x/week 12/31 History of Any Multi-Drug Resistant Organisms: MRSA Year Discovered:: 2010 MDRO Source:: Left knee Past Surgical History: Adenoidectomy, Bariatric Surgery, Cholecystectomy, Heart Catheterization With Stent, Hernia Repair, Hysterectomy, Joint Replacement, Orthopedic Surgery, Tonsillectomy Additional Past Surgical History / Comment(s): Lap band placed in 2003, prolapsed & removed in 2005, neuro stimulator in back, one stent to LAD, left knee arthroscopic surgery, right total knee arthroplasty, left total knee arthroplasty 10/01/2011, repair of quadriceps tendon 08/21/2011, left knee patellar tendon repair 09/24/2011, removal of the hardware of the left total knee arthroplasty with implantation of the antibiotic spacer October 08 2011, total left knee hardware replacement in May 2012,. trigger finger, left hand in 2003 with subsequent reversal in 2005. Uses a walker or wheelchair Past Anesthesia/Blood Transfusion Reactions: No Reported Reaction Additional Past Anesthesia/Blood Transfusion Reaction / Comm: has woken up during a procedure while under anesthesia Date of Last Stent Placement:: 12/24/20 Past Psychological History: Anxiety, Depression Additional Psychological History / Comment(s): Pt resides with her katie, Sonam and her son in law. She ambulates rarely with a walker, mostly is in a wheelchair. Pt feeds herself. Daughter Sonam is pt's DPOA and caregiver. Smoking Status: Never smoker Past Alcohol Use History: None Reported Past Drug Use History: None Reported - Past Family History Mother Family Medical History: Congestive Heart Failure (CHF) Father Family Medical History: Myocardial Infarction ([place]) Additional Family Medical History / Comment(s): Father at the age of 59 yrs from [place] Medications and Allergies Home Medications Medication Instructions Recorded Confirmed Type Pantoprazole Sodium 40 mg PO DAILY 08/10/14 01/04/21 History Solifenacin Succinate [Vesicare] 10 mg PO HS 08/10/14 01/04/21 History Venlafaxine HCl [Effexor] 75 mg PO QAM 05/18/17 01/04/21 History Venlafaxine HCl [Effexor] 150 mg PO HS 05/18/17 01/04/21 History rOPINIRole HCL [Requip] 0.25 mg PO HS 06/06/19 01/04/21 History INSULIN ASPART (NovoLOG) [NovoLOG See Protocol SQ AC-TID 12/09/19 01/04/21 History (formulary)] Ferrous Gluconate 324 mg PO DAILY 05/08/20 01/04/21 History Gabapentin [Neurontin] 300 mg PO HS #3 cap 12/07/20 01/04/21 Rx Insulin Glargine,Hum.rec.anlog 30 unit SQ HS #0 12/07/20 01/04/21 Rx [Lantus Solostar] Lisinopril-Hctz 10-12.5 mg 1 tab PO DAILY #30 tab 12/07/20 01/04/21 Rx [Zestoretic 10-12.5] QUEtiapine [SEROquel] 50 mg PO HS #30 tab 12/07/20 01/04/21 Rx Atorvastatin [Lipitor] 80 mg PO DAILY #30 tab 12/25/20 01/04/21 Rx Clopidogrel [Plavix] 75 mg PO DAILY #30 tab 12/25/20 01/04/21 Rx INSULIN ASPART (NovoLOG) [NovoLOG 6 unit SQ AC-TID #1 vial 12/25/20 01/04/21 Rx (formulary)] Metoprolol Tartrate [Lopressor] 25 mg PO BID #60 tab 12/25/20 01/04/21 Rx Nitroglycerin Sl Tabs [Nitrostat] 0.4 mg SUBLINGUAL Q5M PRN #20 tab 12/25/20 01/04/21 Rx Aspirin 325 mg PO DAILY 01/04/21 01/04/21 History Calcium/Magnesium/Zinc 1 tab PO DAILY 01/04/21 01/04/21 History [Fbpvuik-Gbsklnadr-Wdxv Tablet] Cholecalciferol [Vitamin D3 (25 25 mcg PO DAILY 01/04/21 01/04/21 History Mcg = 1000 Iu)] Docusate [Colace] 100 mg PO DAILY 01/04/21 01/04/21 History amLODIPine [Norvasc] 10 mg PO HS 01/04/21 01/04/21 History Allergies Allergy/AdvReac Type Severity Reaction Status Date / Time metformin HCl Allergy "kidneys Verified 01/04/21 16:14 [From Glucophage] shut down" paper tape AdvReac Itching Uncoded 01/05/21 00:46 Surgical - Exam Vital Signs Temp Pulse Resp BP Pulse Ox 98 F 80 16 90/68 96 01/04/21 12:45 01/04/21 12:45 01/04/21 12:45 01/04/21 12:45 01/04/21 12:45 Palpable radial pulses bilaterally. Palpable DP and PT pulse. No focal deficits tongue is midline - General well developed, well nourished, no distress - Eyes PERRL, normal ocular movement - ENT normal pinna - Neck no masses - Respiratory normal expansion, normal respiratory effort - Cardiovascular Rhythm: regularly irregular - Abdomen Abdomen: soft, non tender - Integumentary no rash - Neurologic normal coordination, normal sensation - Psychiatric oriented to time, oriented to person, oriented to place Results - Labs 01/04/21 13:16 01/05/21 04:29 Abnormal Lab Results - Last 24 Hours (Table) 01/04/21 01/04/21 01/04/21 Range/Units 16:05 16:05 18:52 APTT 91.9 H (22.0-30.0) sec Sodium (137-145) mmol/L Carbon Dioxide (22-30) mmol/L BUN (7-17) mg/dL Creatinine (0.52-1.04) mg/dL Glucose (74-99) mg/dL POC Glucose (mg/dL) (75-99) mg/dL Plasma Lactic Acid Fabio 2.2 H* 3.0 H* (0.7-2.0) mmol/L 01/04/21 01/04/21 01/04/21 Range/Units 20:43 21:51 21:51 APTT 20.4 L (22.0-30.0) sec Sodium (137-145) mmol/L Carbon Dioxide (22-30) mmol/L BUN (7-17) mg/dL Creatinine (0.52-1.04) mg/dL Glucose (74-99) mg/dL POC Glucose (mg/dL) 294 H (75-99) mg/dL Plasma Lactic Acid Fabio 3.6 H* (0.7-2.0) mmol/L 01/04/21 01/05/21 01/05/21 Range/Units 23:02 01:03 04:29 APTT (22.0-30.0) sec Sodium 135 L (137-145) mmol/L Carbon Dioxide 21 L (22-30) mmol/L BUN 35 H (7-17) mg/dL Creatinine 1.64 H (0.52-1.04) mg/dL Glucose 286 H (74-99) mg/dL POC Glucose (mg/dL) 403 H (75-99) mg/dL Plasma Lactic Acid Fabio 3.6 H* (0.7-2.0) mmol/L 01/05/21 01/05/21 Range/Units 06:56 11:38 APTT (22.0-30.0) sec Sodium (137-145) mmol/L Carbon Dioxide (22-30) mmol/L BUN (7-17) mg/dL Creatinine (0.52-1.04) mg/dL Glucose (74-99) mg/dL POC Glucose (mg/dL) 191 H 171 H (75-99) mg/dL Plasma Lactic Acid Fabio (0.7-2.0) mmol/L Microbiology - Last 24 Hours (Table) 01/04/21 13:16 Urine Culture - Preliminary Urine,Clean Catch Diabetes panel 01/05/21 Range/Units 04:29 Sodium 135 L (137-145) mmol/L Potassium 4.6 (3.5-5.1) mmol/L Chloride 105 (98-107) mmol/L Carbon Dioxide 21 L (22-30) mmol/L BUN 35 H (7-17) mg/dL Creatinine 1.64 H (0.52-1.04) mg/dL Glucose 286 H (74-99) mg/dL Calcium 8.5 (8.4-10.2) mg/dL Calcium panel 01/05/21 Range/Units 04:29 Calcium 8.5 (8.4-10.2) mg/dL Pituitary panel 01/05/21 Range/Units 04:29 Sodium 135 L (137-145) mmol/L Potassium 4.6 (3.5-5.1) mmol/L Chloride 105 (98-107) mmol/L Carbon Dioxide 21 L (22-30) mmol/L BUN 35 H (7-17) mg/dL Creatinine 1.64 H (0.52-1.04) mg/dL Glucose 286 H (74-99) mg/dL Calcium 8.5 (8.4-10.2) mg/dL Adrenal panel 01/05/21 Range/Units 04:29 Sodium 135 L (137-145) mmol/L Potassium 4.6 (3.5-5.1) mmol/L Chloride 105 (98-107) mmol/L Carbon Dioxide 21 L (22-30) mmol/L BUN 35 H (7-17) mg/dL Creatinine 1.64 H (0.52-1.04) mg/dL Glucose 286 H (74-99) mg/dL Calcium 8.5 (8.4-10.2) mg/dL Assessment and Plan Assessment: #1 right internal carotid artery stenosis #2 history of multiple TIAs with history of subacute/chronic pontine lacunar stroke #3 presyncopal episode #4 chronic atrial fibrillation #5 hypertension #6 coronary artery disease Plan: Reviewed CT angiogram and carotid Dopplers from previous visits. No change in plan at this time and patient would likely require angiogram in the future. She does have an appointment scheduled with Dr. Watters next which she will keep. Recommend continuing Plavix, aspirin and Lipitor. Thank you for the consultation and we are available for questions.
[2021-01-05 17:04] LABS: Glucose,Whole Blood 105 mg/dL (75-99)
[2021-01-05 19:53] LABS: Glucose,Whole Blood 188 mg/dL (75-99)
[2021-01-05] MEDS: QUEtiapine 50 MG TAB PO SCH (19:58)
[2021-01-05] MEDS: GABAPENTIN 300 MG CAP PO SCH (19:58)
[2021-01-05] MEDS: ONDANSETRON 4 MG/2 ML VIAL IVP PRN (20:03)
[2021-01-05] MEDS: INSULIN DETEMIR (LEVEMIR) 100 UNIT/ML SYR SQ SCH (20:15)
[2021-01-06] MEDS: SODIUM CHLORIDE 0.9% 1,000 ML IV SCH (02:56)
[2021-01-06 07:11] LABS: Glucose,Whole Blood 183 mg/dL (75-99)
[2021-01-06] MEDS: INSULIN ASPART (NovoLOG) 100 UNIT/ML VIAL SQ SCH ×6 (07:13→16:57)
[2021-01-06 08:10] LABS: Calcium 8.7 mg/dL (8.4-10.2)
[2021-01-06] MEDS: CLOPIDOGREL 75 MG TAB PO SCH (09:14)
[2021-01-06] MEDS: ASPIRIN 81 MG PO SCH (09:14)
[2021-01-06] MEDS: ATORVASTATIN 80 MG TAB PO SCH (09:14)
[2021-01-06] MEDS: METOPROLOL TARTRATE 25 MG TAB PO SCH ×2 (09:14→20:39)
[2021-01-06] MEDS: FERROUS SULFATE 325 MG TAB PO SCH (09:14)
[2021-01-06] MEDS: DOCUSATE 100 MG CAP PO SCH (09:14)
[2021-01-06] MEDS: PANTOPRAZOLE 40 MG TABLET PO SCH (09:14)
[2021-01-06] MEDS: ACETAMINOPHEN TAB 325 MG TAB PO PRN (09:17)
[2021-01-06] MEDS: VENLAFAXINE HCL 75 MG TAB PO SCH ×2 (09:18→20:38)
--- NOTE | 2021-01-06 09:51 | P.PN ---
Subjective Progress Note Date: 01/06/21 Principal diagnosis: Presyncope Patient is doing well today. She denies any shortness of breath or dizziness. No acute events overnight reported to me by nursing staff. Objective - Vital Signs Vital signs: Vital Signs Temp 98 F 01/06/21 04:00 Pulse 50 L 01/06/21 04:00 Resp 18 01/06/21 04:00 BP 106/62 01/06/21 04:00 Pulse Ox 93 L 01/06/21 04:00 Intake & Output 01/05/21 01/06/21 01/06/21 18:59 06:59 18:59 Intake Total 2468 240 Output Total 800 460 Balance 1668 -460 240 Weight 89.8 kg 94.1 kg Intake: Intake, IV Titration 770 Amount Sodium Chloride 0.9% 1, 720 000 ml @ 90 mls/hr IV . Q11H7M BRANDY Rx#:[id number] cefTRIAXone 1 gm In 50 Sodium Chloride 0.9% 50 ml @ 100 mls/hr IVPB Q24HR BRANDY Rx#:[id number] Oral 1698 240 Output: Urine 400 460 Post Void Residual 400 Other: Voiding Method Bedside Commode Bedside Commode # Voids 1 - Exam General: The patient is awake and alert, in no distress Eye: there is normal conjunctiva bilaterally. Neck: The neck is supple, there is no JVD. Cardiovascular: Normal S1-S2, no S3-S4, no murmurs. Respiratory: Lungs clear to auscultation bilaterally Gastrointestinal: Abdomen is soft, nontender Musculoskeletal: There is no pedal edema. Neurological:. Speech is normal. Skin: Skin is warm and dry - Labs CBC & Chem 7: 01/04/21 13:16 01/06/21 06:37 Labs: Abnormal Lab Results - Last 24 Hours (Table) 01/05/21 01/05/21 01/05/21 Range/Units 11:38 16:47 19:51 Chloride (98-107) mmol/L BUN (7-17) mg/dL Creatinine (0.52-1.04) mg/dL Glucose (74-99) mg/dL POC Glucose (mg/dL) 171 H 105 H 188 H (75-99) mg/dL 01/06/21 01/06/21 Range/Units 06:37 07:09 Chloride 110 H (98-107) mmol/L BUN 25 H (7-17) mg/dL Creatinine 1.53 H (0.52-1.04) mg/dL Glucose 195 H (74-99) mg/dL POC Glucose (mg/dL) 183 H (75-99) mg/dL Microbiology - Last 24 Hours (Table) 01/04/21 13:16 Urine Culture - Preliminary Urine,Clean Catch Gram Neg Bacilli Assessment and Plan Assessment: This is a 70-year-old female with past medical history noted below who presented to the emergency room with presyncopal episode. Patient was evaluated in the ER and admitted to the hospital for further management of her medical problems noted below. 1. Presyncopal episode, most likely secondary to dehydration and low blood pressure. Orthostatic blood pressure checked and positive. Patient received IV fluid hydration since admission. Home dose of amlodipine and lisinopril/hydrochlorothiazide has been discontinued.. Echocardiogram done last month showed ejection fraction preserved and no significant valvular abnormalities. CT angiogram of the neck done last month showed some peaking in the right internal carotid artery with no hemodynamically significant stenosis. Patient was seen and evaluated by cardiology. No further recommendations at this time. 2. Urinary tract infection: Started IV ceftriaxone awaiting urine culture. Bladder scan showed no evidence of retention. Ultrasound of the kidney showed no hydronephrosis or pyelonephritis. 3. Lactic acidosis: Secondary to hypotension. Resolved with IV fluid hydration. 4. Acute kidney injury on stage IIIB chronic kidney disease. Prerenal. Baseline creatinine around 1.5. 6. Coronary artery disease status post left heart catheterization 3 weeks ago during last hospitalization showing mild to moderate disease of the LAD. Managed medically. 7. Chronic medical problems: Type 2 diabetes, essential hypertension, hyperlipidemia, paroxysmal atrial fibrillation not on anticoagulation, underlying cognitive impairment/dementia, chronic gait dysfunction mostly wheelchair bound. Suspected left carotid stenosis, seen and evaluated by vascular disease. Plan to follow-up in the office next week. 8. CODE STATUS: Patient is DO NOT RESUSCITATE/DO NOT INTUBATE. Discussed with her daughter at bedside on presentation Patient refused to go to retirement facility. She would like to go home. Awaiting urine culture to finalize. Plan for discharge home tomorrow.
[2021-01-06] MEDS: HYDROcodone/APAP 5-325MG 1 EACH TAB PO PRN ×2 (11:37→20:37)
[2021-01-06 11:48] LABS: Glucose,Whole Blood 304 mg/dL (75-99)
--- NOTE | 2021-01-06 12:34 | P.PN ---
Subjective HISTORY OF PRESENTING ILLNESS This is a pleasant 70-year-old female past medical history significant for paroxysmal atrial fibrilation not on prison anticoagulation secondary to frequent falls, hypertension, dyslipidemia, diabetes mellitus and recent non-ST elevated myocardial infarction thought to be secondary to plaque rupture main tained on dual antiplatelet therapy. She was admitted here on December 25 secondary to unstable angina and underwent cardiac catheterization revealing calcified LAD and circumflex with a plaque noted in the mid LAD. At that time her symptoms and troponin elevation with thoughts be related to plaque rupture and her medical therapy was optimized. She is seen and examined resting comfortably lying flat in bed in no acute distress. She is unclear why she is at the hospital. Information is obtained from the medical record and nursing staff. Apparently she was working at home yesterday with physical therapy when she had verbalized she felt dizzy. She was assisted to a sitting position where she had an episode lasting about 10 minutes where she was verbally unresponsive however her eyes were open. She denies chest pain, shortness of breath, dizziness or palpitations. Most recent echocardiogram obtained November 2020 revealed preserved LV systolic function with ejection fraction 55-60%. 01/06/2021 Patient is seen and examined sitting up in bed having breakfast in no acute distress. She denies symptoms of chest pain, shortness of breath, dizziness or palpitations. Blood pressure 106/62 heart rate 58 afebrile maintaining oxygen saturation on room air. Laboratory data reviewed, sodium 141, potassium 5.0, creatinine 1.53. Currently maintained on aspirin 81 mg daily, atorvastatin 80 mg daily, Plavix 75 mg daily and metoprolol 25 mg twice a day. Telemetry tracings reveals sinus rhythm and sinus bradycardia heart rate in the mid 50s. PHYSICAL EXAMINATION CONSTITUTIONAL: No apparent distress. HEENT: Head is normocephalic. Pupils are equal, round. Sclerae anicteric. Mucous membranes of the mouth are moist. No JVD. No carotid bruit. CHEST EXAMINATION: Lungs are clear to auscultation. No chest wall tenderness is noted on palpation or with deep breathing. HEART EXAMINATION: Regular rate and rhythm. S1, S2 heard. No murmurs, gallops or rub. EXTREMITIES: 2+ peripheral pulses, no lower extremity edema and no calf tenderness. ASSESSMENT Near syncope, likely secondary to hypotension Lactic acidosis Leukocytosis Urinary tract infection Acute kidney injury, improving Coronary artery disease maintained on dual antiplatelet therapy Hypertension Dyslipidemia Diabetes mellitus PLAN Blood pressure is stable on current medical regimen. No further recommendations at this time. Nurse Practitioner note has been reviewed, I agree with a documented findings and plan of care. Patient was seen and examined. Objective - Vital Signs Vital signs: Vital Signs Temp 98 F 01/06/21 04:00 Pulse 50 L 01/06/21 04:00 Resp 18 01/06/21 04:00 BP 106/62 01/06/21 04:00 Pulse Ox 93 L 01/06/21 04:00 Intake & Output 01/05/21 01/06/21 01/06/21 18:59 06:59 18:59 Intake Total 2468 240 Output Total 800 460 Balance 1668 -460 240 Weight 89.8 kg 94.1 kg Intake: Intake, IV Titration 770 Amount Sodium Chloride 0.9% 1, 720 000 ml @ 90 mls/hr IV . Q11H7M BRANDY Rx#:[id number] cefTRIAXone 1 gm In 50 Sodium Chloride 0.9% 50 ml @ 100 mls/hr IVPB Q24HR BRANDY Rx#:[id number] Oral 1698 240 Output: Urine 400 460 Post Void Residual 400 Other: Voiding Method Bedside Commode Bedside Commode # Voids 1 - Labs CBC & Chem 7: 01/04/21 13:16 01/06/21 06:37 Labs: Abnormal Lab Results - Last 24 Hours (Table) 01/05/21 01/05/21 01/05/21 Range/Units 11:38 16:47 19:51 Chloride (98-107) mmol/L BUN (7-17) mg/dL Creatinine (0.52-1.04) mg/dL Glucose (74-99) mg/dL POC Glucose (mg/dL) 171 H 105 H 188 H (75-99) mg/dL 01/06/21 01/06/21 Range/Units 06:37 07:09 Chloride 110 H (98-107) mmol/L BUN 25 H (7-17) mg/dL Creatinine 1.53 H (0.52-1.04) mg/dL Glucose 195 H (74-99) mg/dL POC Glucose (mg/dL) 183 H (75-99) mg/dL Microbiology - Last 24 Hours (Table) 01/04/21 13:16 Urine Culture - Preliminary Urine,Clean Catch Gram Neg Bacilli
[2021-01-06 16:57] LABS: Glucose,Whole Blood 205 mg/dL (75-99)
[2021-01-06] MEDS: ONDANSETRON 4 MG/2 ML VIAL IVP PRN (19:15)
[2021-01-06 20:09] LABS: Glucose,Whole Blood 285 mg/dL (75-99)
[2021-01-06] MEDS: INSULIN DETEMIR (LEVEMIR) 100 UNIT/ML SYR SQ SCH (20:37)
[2021-01-06] MEDS: QUEtiapine 50 MG TAB PO SCH (20:37)
[2021-01-06] MEDS: GABAPENTIN 300 MG CAP PO SCH (20:39)
[2021-01-07 07:12] LABS: Glucose,Whole Blood 155 mg/dL (75-99)
[2021-01-07] MEDS: INSULIN ASPART (NovoLOG) 100 UNIT/ML VIAL SQ SCH ×4 (07:24→12:40)
[2021-01-07 07:37] LABS: Basophils # (A) 0.1 k/uL (0-0.2); Basophils % (A) 1 %; Eosinophils # (A) 0.3 k/uL (0-0.7); Eosinophils % (A) 3 %; HCT 34.2 % (34.0-46.0); Lymphocytes # (A) 3.5 k/uL (1.0-4.8); Lymphocytes % (A) 32 %; MCH 28.8 pg (25.0-35.0); MCHC 33.5 g/dL (31.0-37.0); MCV 86.1 fL (80.0-100.0); Mean Platelet Volume 8.6; Monocytes # (A) 0.5 k/uL (0-1.0); Monocytes % (A) 4 %; Neutrophils # (A) 6.6 k/uL (1.3-7.7); Neutrophils % (A) 60 %; Platelet Count 258 k/uL (150-450); RBC 3.97 m/uL (3.80-5.40); RDW 13.3 % (11.5-15.5); WBC 11.1 k/uL (3.8-10.6)
[2021-01-07 07:48] LABS: Calcium 8.6 mg/dL (8.4-10.2)
[2021-01-07 07:51] LABS: HGB 11.4 gm/dL (11.4-16.0)
[2021-01-07 07:52] LABS: Potassium 5.4 mmol/L (3.5-5.1)
[2021-01-07] MEDS: ASPIRIN 81 MG PO SCH (09:01)
[2021-01-07] MEDS: METOPROLOL TARTRATE 25 MG TAB PO SCH (09:01)
[2021-01-07] MEDS: CLOPIDOGREL 75 MG TAB PO SCH (09:02)
[2021-01-07] MEDS: DOCUSATE 100 MG CAP PO SCH (09:02)
[2021-01-07] MEDS: PANTOPRAZOLE 40 MG TABLET PO SCH (09:02)
[2021-01-07] MEDS: VENLAFAXINE HCL 75 MG TAB PO SCH (09:02)
[2021-01-07] MEDS: ATORVASTATIN 80 MG TAB PO SCH (09:02)
[2021-01-07] MEDS: FERROUS SULFATE 325 MG TAB PO SCH (09:02)
[2021-01-07] MEDS: HYDROcodone/APAP 5-325MG 1 EACH TAB PO PRN (09:03)
--- NOTE | 2021-01-07 09:55 | P.PN ---
Subjective HISTORY OF PRESENTING ILLNESS This is a pleasant 70-year-old female past medical history significant for paroxysmal atrial fibrilation not on residential anticoagulation secondary to frequent falls, hypertension, dyslipidemia, diabetes mellitus and recent non-ST elevated myocardial infarction thought to be secondary to plaque rupture main tained on dual antiplatelet therapy. She was admitted here on December 25 secondary to unstable angina and underwent cardiac catheterization revealing calcified LAD and circumflex with a plaque noted in the mid LAD. At that time her symptoms and troponin elevation with thoughts be related to plaque rupture and her medical therapy was optimized. She is seen and examined resting comfortably lying flat in bed in no acute distress. She is unclear why she is at the hospital. Information is obtained from the medical record and nursing staff. Apparently she was working at home yesterday with physical therapy when she had verbalized she felt dizzy. She was assisted to a sitting position where she had an episode lasting about 10 minutes where she was verbally unresponsive however her eyes were open. She denies chest pain, shortness of breath, dizziness or palpitations. Most recent echocardiogram obtained November 2020 revealed preserved LV systolic function with ejection fraction 55-60%. 01/07/2021 Patient is seen and examined resting comfortably lying flat in bed in no acute distress. She has no symptoms of chest pain, shortness of breath, dizziness or palpitations. Blood pressure 164/69 heart rate 63 afebrile maintaining oxygen saturation on room air. Data reviewed, WBC 11.1, hemoglobin 11.4, platelets 258, sodium 138, potassium 5.4, creatinine 1.33. PHYSICAL EXAMINATION CONSTITUTIONAL: No apparent distress. HEENT: Head is normocephalic. Pupils are equal, round. Sclerae anicteric. Mucous membranes of the mouth are moist. No JVD. No carotid bruit. CHEST EXAMINATION: Lungs are clear to auscultation. No chest wall tenderness is noted on palpation or with deep breathing. HEART EXAMINATION: Regular rate and rhythm. S1, S2 heard. No murmurs, gallops or rub. EXTREMITIES: 2+ peripheral pulses, no lower extremity edema and no calf tenderness. ASSESSMENT Near syncope, likely secondary to hypotension Lactic acidosis Leukocytosis Urinary tract infection Acute kidney injury, improving Coronary artery disease maintained on dual antiplatelet therapy Hypertension Dyslipidemia Diabetes mellitus PLAN Stable on current medical regimen. Follow-up in the office with Dr. Cramer upon discharge. Nurse Practitioner note has been reviewed, I agree with a documented findings an d plan of care. Patient was seen and examined. Objective - Vital Signs Vital signs: Vital Signs Temp 98.1 F 01/07/21 08:00 Pulse 63 01/07/21 08:00 Resp 17 01/07/21 08:00 BP 164/69 01/07/21 08:00 Pulse Ox 97 01/07/21 08:00 Intake & Output 01/06/21 01/07/21 01/07/21 18:59 06:59 18:59 Intake Total 1310 Output Total 800 700 300 Balance 510 -700 -300 Weight 94.3 kg Intake: Intake, IV Titration 230 Amount Sodium Chloride 0.9% 1, 180 000 ml @ 90 mls/hr IV . Q11H7M BRANDY Rx#:[id number] cefTRIAXone 1 gm In 50 Sodium Chloride 0.9% 50 ml @ 100 mls/hr IVPB Q24HR BRANDY Rx#:[id number] Oral 1080 Output: Urine 800 490 300 Stool 210 Other: Voiding Method Bedside Commode Bedside Commode Bedside Commode # Voids 1 1 # Bowel Movements 1 - Labs CBC & Chem 7: 01/07/21 06:52 01/07/21 06:52 Labs: Abnormal Lab Results - Last 24 Hours (Table) 01/06/21 01/06/21 01/06/21 Range/Units 11:43 16:51 20:08 WBC (3.8-10.6) k/uL Potassium (3.5-5.1) mmol/L BUN (7-17) mg/dL Creatinine (0.52-1.04) mg/dL Glucose (74-99) mg/dL POC Glucose (mg/dL) 304 H 205 H 285 H (75-99) mg/dL 01/07/21 01/07/21 01/07/21 Range/Units 06:52 06:52 07:11 WBC 11.1 H (3.8-10.6) k/uL Potassium 5.4 H (3.5-5.1) mmol/L BUN 28 H (7-17) mg/dL Creatinine 1.33 H (0.52-1.04) mg/dL Glucose 152 H (74-99) mg/dL POC Glucose (mg/dL) 155 H (75-99) mg/dL Microbiology - Last 24 Hours (Table) 01/04/21 13:16 Urine Culture - Final Urine,Clean Catch Escherichia coli
--- NOTE | 2021-01-07 10:28 | P.DS ---
Providers Date of admission: 01/04/21 17:41 Expected date of discharge: 01/07/21 Attending physician: Steve Han Consults: 01/04/21 16:05 Consult Physician Routine Consulting Provider: Milan Jhaveri Consult Reason/Comments: syncope Do you want consulting provider notified?: Yes 01/05/21 15:13 Consult Physician Routine Consulting Provider: Tian Dash Consult Reason/Comments: pt known to you carotid stenosis Do you want consulting provider notified?: Yes Primary care physician: Amanuel Wilkinson MD Hospital Course: This is a 70-year-old female with past medical history noted below who presented to the emergency room with presyncopal episode. Patient was evaluated in the ER and admitted to the hospital for further management of her medical problems note d below. 1. Presyncopal episode, most likely secondary to dehydration and low blood pressure. Orthostatic blood pressure checked and positive. Patient received IV fluid hydration since admission. Home dose of amlodipine and lisinopril/hydrochlorothiazide has been discontinued.. Echocardiogram done last month showed ejection fraction preserved and no significant valvular abnormalities. CT angiogram of the neck done last month showed some peaking in the right internal carotid artery with no hemodynamically significant stenosis. Patient was seen and evaluated by cardiology. No further recommendations at this time. 2. Urinary tract infection: Started IV ceftriaxone and finish 3 days course. Urine culture showed susceptible E. coli. Bladder scan showed no evidence of retention. Ultrasound of the kidney showed no hydronephrosis or pyelonephritis. 3. Lactic acidosis: Secondary to hypotension. Resolved with IV fluid hydration. 4. Acute kidney injury on stage IIIB chronic kidney disease. Prerenal. Baseline creatinine around 1.5. 6. Coronary artery disease status post left heart catheterization 3 weeks ago during last hospitalization showing mild to moderate disease of the LAD. Managed medically. 7. Chronic medical problems: Type 2 diabetes, essential hypertension, hyperlipidemia, paroxysmal atrial fibrillation not on anticoagulation, underlying cognitive impairment/dementia, chronic gait dysfunction mostly wheelchair bound. Suspected left carotid stenosis, seen and evaluated by vascular disease. Plan to follow-up in the office next week. 8. CODE STATUS: Patient is DO NOT RESUSCITATE/DO NOT INTUBATE. Discussed with her daughter at bedside on presentation Patient will be discharged home in stable condition. She has home care and home PT set up. She will follow-up with cardiology and vascular surgery as directed. Patient Condition at Discharge: Fair Plan - Discharge Summary Discharge Rx Participant: Yes New Discharge Prescriptions: Continue Pantoprazole Sodium 40 mg PO DAILY Venlafaxine HCl [Effexor] 150 mg PO HS Venlafaxine HCl [Effexor] 75 mg PO QAM rOPINIRole HCL [Requip] 0.25 mg PO HS INSULIN ASPART (NovoLOG) [NovoLOG (formulary)] See Protocol SQ AC-TID Ferrous Gluconate 324 mg PO DAILY QUEtiapine [SEROquel] 50 mg PO HS #30 tab Insulin Glargine,Hum.rec.anlog [Lantus Solostar] 30 unit SQ HS #0 Gabapentin [Neurontin] 300 mg PO HS #3 cap Atorvastatin [Lipitor] 80 mg PO DAILY #30 tab Metoprolol Tartrate [Lopressor] 25 mg PO BID #60 tab Nitroglycerin Sl Tabs [Nitrostat] 0.4 mg SUBLINGUAL Q5M PRN #20 tab PRN Reason: Chest Pain INSULIN ASPART (NovoLOG) [NovoLOG (formulary)] 6 unit SQ AC-TID #1 vial Clopidogrel [Plavix] 75 mg PO DAILY #30 tab Docusate [Colace] 100 mg PO DAILY Cholecalciferol [Vitamin D3 (25 Mcg = 1000 Iu)] 25 mcg PO DAILY Calcium/Magnesium/Zinc [Gblcyqv-Xhakpuwiu-Yjdt Tablet] 1 tab PO DAILY Discontinued Solifenacin Succinate [Vesicare] 10 mg PO HS Lisinopril-Hctz 10-12.5 mg [Zestoretic 10-12.5] 1 tab PO DAILY #30 tab amLODIPine [Norvasc] 10 mg PO HS Aspirin 325 mg PO DAILY Discharge Medication List Pantoprazole Sodium 40 mg PO DAILY 08/10/14 [History] Venlafaxine HCl [Effexor] 75 mg PO QAM 05/18/17 [History] Venlafaxine HCl [Effexor] 150 mg PO HS 05/18/17 [History] rOPINIRole HCL [Requip] 0.25 mg PO HS 06/06/19 [History] INSULIN ASPART (NovoLOG) [NovoLOG (formulary)] See Protocol SQ AC-TID 12/09/19 [History] Ferrous Gluconate 324 mg PO DAILY 05/08/20 [History] Gabapentin [Neurontin] 300 mg PO HS #3 cap 12/07/20 [Rx] Insulin Glargine,Hum.rec.anlog [Lantus Solostar] 30 unit SQ HS #0 12/07/20 [Rx] QUEtiapine [SEROquel] 50 mg PO HS #30 tab 12/07/20 [Rx] Atorvastatin [Lipitor] 80 mg PO DAILY #30 tab 12/25/20 [Rx] Clopidogrel [Plavix] 75 mg PO DAILY #30 tab 12/25/20 [Rx] INSULIN ASPART (NovoLOG) [NovoLOG (formulary)] 6 unit SQ AC-TID #1 vial 12/25/20 [Rx] Metoprolol Tartrate [Lopressor] 25 mg PO BID #60 tab 12/25/20 [Rx] Nitroglycerin Sl Tabs [Nitrostat] 0.4 mg SUBLINGUAL Q5M PRN #20 tab 12/25/20 [Rx] Calcium/Magnesium/Zinc [Hjxkotl-Pfbmtapyn-Mdbc Tablet] 1 tab PO DAILY 01/04/21 [History] Cholecalciferol [Vitamin D3 (25 Mcg = 1000 Iu)] 25 mcg PO DAILY 01/04/21 [History] Docusate [Colace] 100 mg PO DAILY 01/04/21 [History] Follow up Appointment(s)/Referral(s): [facility], [NON-STAFF] - Amanuel Wilkinson MD [Primary Care Provider] - 1-2 days Poli Cramer MD [STAFF PHYSICIAN] - 1 Week Discharge Disposition: HOME WITH HOME HEALTH SERVICES
[2021-01-07 11:54] LABS: Glucose,Whole Blood 172 mg/dL (75-99)
[2021-01-07 14:22] VITALS: BP 144/67; PULSE 72; RESP 18; TEMP 98.4
== END 2021-01-07 15:30 | disposition home health service (06) | DRG 641 ==
LOC: EC 12:44 → 3SCARD 17:41
PROVIDERS: ADMIT Internal Medicine; ATTEND Internal Medicine
DX: E86.0 Dehydration (principal); I25.110 Atherosclerotic heart disease of native coronary artery with unstable angina pectoris; N39.0 Urinary tract infection, site not specified; N17.9 Acute kidney failure, unspecified; I95.9 Hypotension, unspecified; E87.2 Acidosis; E11.22 Type 2 diabetes mellitus with diabetic chronic kidney disease; E11.42 Type 2 diabetes mellitus with diabetic polyneuropathy; E78.5 Hyperlipidemia, unspecified; F32.9 Major depressive disorder, single episode, unspecified; F41.9 Anxiety disorder, unspecified; G25.81 Restless legs syndrome; I12.9 Hypertensive chronic kidney disease with stage 1 through stage 4 chronic kidney disease, or unspecified chronic kidney disease; I25.2 Old myocardial infarction; I48.0 Paroxysmal atrial fibrillation; F03.90 Unspecified dementia, unspecified severity, without behavioral disturbance, psychotic disturbance, mood disturbance, and anxiety; R26.9 Unspecified abnormalities of gait and mobility; Z99.3 Dependence on wheelchair; Z66 Do not resuscitate; I65.21 Occlusion and stenosis of right carotid artery; Z86.73 Personal history of transient ischemic attack (TIA), and cerebral infarction without residual deficits; D72.829 Elevated white blood cell count, unspecified; Z79.02 Long term (current) use of antithrombotics/antiplatelets; N18.32 Chronic kidney disease, stage 3b; Z79.4 Long term (current) use of insulin; N32.81 Overactive bladder; M51.36 Other intervertebral disc degeneration, lumbar region; M48.061 Spinal stenosis, lumbar region without neurogenic claudication; Z20.822 Contact with and (suspected) exposure to COVID-19; Z96.82 Presence of neurostimulator; Z85.05 Personal history of malignant neoplasm of liver; Z92.21 Personal history of antineoplastic chemotherapy
CPT/HCPCS: 36415; 71045; 76770; 80048; 80053; 81001; 83605; 83735; 84484; 85025; 85610; 85730; 87077; 87086; 87186; 87635; 93005

== ENCOUNTER 2021-01-11 16:05 | Inpatient (IN) | payer MEDICARE, OTHER ==
[2021-01-11] MEDS ORDERED: SODIUM CHLORIDE 0.9% 1,000 ML IV STA (16:32)
[2021-01-11 16:54] LABS: Basophils # (A) 0.1 k/uL (0-0.2); Basophils % (A) 1 %; Eosinophils # (A) 0.4 k/uL (0-0.7); Eosinophils % (A) 3 %; HCT 42.6 % (34.0-46.0); HGB 13.4 gm/dL (11.4-16.0); Lymphocytes # (A) 4.9 k/uL (1.0-4.8); Lymphocytes % (A) 34 %; MCH 27.3 pg (25.0-35.0); MCHC 31.4 g/dL (31.0-37.0); MCV 86.9 fL (80.0-100.0); Mean Platelet Volume 8.2; Monocytes # (A) 0.5 k/uL (0-1.0); Monocytes % (A) 3 %; Neutrophils # (A) 8.5 k/uL (1.3-7.7); Neutrophils % (A) 58 %; Platelet Count 403 k/uL (150-450); RDW 13.5 % (11.5-15.5); WBC 14.6 k/uL (3.8-10.6)
[2021-01-11 17:07] LABS: Albumin 3.8 g/dL (3.5-5.0); Calcium 9.6 mg/dL (8.4-10.2); Potassium 4.7 mmol/L (3.5-5.1); Total Bilirubin 0.5 mg/dL (0.2-1.3); Total Protein 6.9 g/dL (6.3-8.2)
--- NOTE | 2021-01-11 17:20 | ED ---
General Adult HPI - General Chief complaint: Syncope Stated complaint: Near Syncope Time Seen by Provider: 01/11/21 16:11 Source: patient Mode of arrival: wheelchair Limitations: no limitations - History of Present Illness Initial comments: 70-year-old female past history of A. fib, CVA, hepatocellular carcinoma in remission who presents to the emergency department after she had a presyncopal episode. Patient was in the outpatient lab where she had come to get some blood work done. She saw Dr. Watters today in office and is scheduled for a carotid study next week. Reports that she was here getting her preoperative labs done. Upon arrival to the hospital she began feeling very faint and nauseated. She requested go to the bathroom. The daughter reports that she then had a near- syncopal episode on the toilet. The patient then began having several episodes of emesis. She is to the emergency room for further evaluation. Upon review the patient's chart she was hospitalized from January 04 to the for similar complaint. It was found that the patient had orthostatic hypotension. Discharge summary states that the patient was supposed to go off of her lisinopril-hctz, vesicare, aspirin and norvasc. A daughter in the room reports that they were never told his upon discharge and they're for the patient has continued these medications. She did take her medications this morning. Patient denies any chest pain or shortness of breath. Continues to have nausea with emesis. No abdominal pain. Denies hematemesis, black or melenic stools. No headaches or visual changes. No other alleviating, precipitating or modifying factors - Related Data Home Medications Medication Instructions Recorded Confirmed Pantoprazole Sodium 40 mg PO DAILY 08/10/14 01/11/21 Venlafaxine HCl [Effexor] 75 mg PO [facility] 05/18/17 01/11/21 Venlafaxine HCl [Effexor] 150 mg PO HS 05/18/17 01/11/21 rOPINIRole HCL [Requip] 0.25 mg PO HS 06/06/19 01/11/21 Ferrous Gluconate 324 mg PO DAILY 05/08/20 01/11/21 Calcium/Magnesium/Zinc 1 tab PO DAILY 01/04/21 01/11/21 [Cpsqguh-Gbusfkkau-Sadc Tablet] Cholecalciferol [Vitamin D3 (25 25 mcg PO DAILY 01/04/21 01/11/21 Mcg = 1000 Iu)] Previous Rx's Medication Instructions Recorded Gabapentin [Neurontin] 300 mg PO HS #3 cap 12/07/20 QUEtiapine [SEROquel] 50 mg PO HS #30 tab 12/07/20 Atorvastatin [Lipitor] 80 mg PO DAILY #30 tab 12/25/20 Clopidogrel [Plavix] 75 mg PO DAILY #30 tab 12/25/20 Metoprolol Tartrate [Lopressor] 25 mg PO BID #60 tab 12/25/20 Nitroglycerin Sl Tabs [Nitrostat] 0.4 mg SUBLINGUAL Q5M PRN #20 tab 12/25/20 Insulin Glargine,Hum.rec.anlog 26 unit SQ HS #0 01/13/21 [Lantus Solostar] Allergies Allergy/AdvReac Type Severity Reaction Status Date / Time metformin HCl Allergy "kidneys Verified 01/11/21 19:49 [From Glucophage] shut down" paper tape AdvReac Itching Uncoded 01/11/21 16:10 Review of Systems ROS Statement: Those systems with pertinent positive or pertinent negative responses have been documented in the HPI. ROS Other: All systems not noted in ROS Statement are negative. Past Medical History Past Medical History: Atrial Fibrillation, Cancer, CVA/TIA, Diabetes Mellitus, Hyperlipidemia, Hypertension Additional Past Medical History / Comment(s): Hepatocellular carcinoma (in remission), had one dose of chemo 2014, TIA X4, hiatal hernia, spinal stenosis, degenerative disc disease involving L3 and L4, diabetic peripheral neuropathy, hyperactive bladder, history of septic left knee joint post arthroplasty. restless leg syndrome. patient states [facility] home healthcare comes out 2x/week 12/31 History of Any Multi-Drug Resistant Organisms: MRSA Date of last positivie culture/infection: 2010 MDRO Source:: Left knee Past Surgical History: Adenoidectomy, Bariatric Surgery, Cholecystectomy, Heart Catheterization With Stent, Hernia Repair, Hysterectomy, Joint Replacement, Orthopedic Surgery, Tonsillectomy Additional Past Surgical History / Comment(s): Lap band placed in 2003, prolapsed & removed in 2005, neuro stimulator in back, one stent to LAD, left knee arthroscopic surgery, right total knee arthroplasty, left total knee arthroplasty 10/01/2011, repair of quadriceps tendon 08/21/2011, left knee patellar tendon repair 09/24/2011, removal of the hardware of the left total knee arthroplasty with implantation of the antibiotic spacer October 08 2011, total left knee hardware replacement in May 2012,. trigger finger, left hand in 2003 with subsequent reversal in 2005. Uses a walker or wheelchair Past Anesthesia/Blood Transfusion Reactions: No Reported Reaction Additional Past Anesthesia/Blood Transfusion Reaction / Comment(s): has woken up during a procedure while under anesthesia Date of Last Stent Placement:: 05/17/2010 Past Psychological History: Anxiety, Depression Smoking Status: Never smoker Past Alcohol Use History: None Reported Past Drug Use History: None Reported - Past Family History Mother Family Medical History: Congestive Heart Failure (CHF) Father Family Medical History: Myocardial Infarction ([place]) Additional Family Medical History / Comment(s): Father at the age of 59 yrs from [place] General Exam Limitations: no limitations General appearance: alert, in no apparent distress Head exam: Present: atraumatic, normocephalic, normal inspection Eye exam: Present: normal appearance, PERRL, EOMI. Absent: scleral icterus, co njunctival injection, periorbital swelling ENT exam: Present: normal exam, mucous membranes moist Neck exam: Present: normal inspection. Absent: tenderness, meningismus, lymphadenopathy Respiratory exam: Present: normal lung sounds bilaterally. Absent: respiratory distress, wheezes, rales, rhonchi, stridor Cardiovascular Exam: Present: regular rate, normal rhythm, normal heart sounds. Absent: systolic murmur, diastolic murmur, rubs, gallop, clicks GI/Abdominal exam: Present: soft, normal bowel sounds. Absent: distended, tenderness, guarding, rebound, rigid Extremities exam: Present: normal inspection, full ROM, normal capillary refill. Absent: tenderness, pedal edema, joint swelling, calf tenderness Back exam: Present: normal inspection Neurological exam: Present: alert, oriented X3, CN II-XII intact Psychiatric exam: Present: normal affect, normal mood Skin exam: Present: warm, dry, intact, normal color. Absent: rash Course Vital Signs 01/11/21 01/11/21 01/11/21 16:07 16:16 16:30 Temperature 97.4 F L Pulse Rate 71 Pulse Rate [ 75 Right Sitting Parts Delivery Driver ] Pulse Rate [ 72 Right Supine Parts Delivery Driver ] Respiratory 18 Rate Blood Pressure 81/56 107/71 Blood Pressure 89/64 [Right Arm Sitting] Blood Pressure [Right Arm Standing] Blood Pressure 100/64 [Right Arm Supine] O2 Sat by Pulse 97 Oximetry 01/11/21 01/11/21 01/11/21 18:26 19:16 19:17 Temperature Pulse Rate Pulse Rate [ 75 Right Sitting Parts Delivery Driver ] Pulse Rate [ 54 L 73 Right Supine Parts Delivery Driver ] Respiratory Rate Blood Pressure 131/58 Blood Pressure 90/66 [Right Arm Sitting] Blood Pressure 103/74 [Right Arm Standing] Blood Pressure 124/81 [Right Arm Supine] O2 Sat by Pulse Oximetry 01/11/21 20:38 Temperature Pulse Rate 55 L Pulse Rate [ Right Sitting Parts Delivery Driver ] Pulse Rate [ Right Supine Parts Delivery Driver ] Respiratory 18 Rate Blood Pressure 139/55 Blood Pressure [Right Arm Sitting] Blood Pressure [Right Arm Standing] Blood Pressure [Right Arm Supine] O2 Sat by Pulse Oximetry EKG Findings - EKG Comments: EKG Findings:: EKG demonstrates normal sinus rhythm with ventricular rate of 81. FL interval 164. QRS 74. QTC of 473. No acute ST segment elevations or depressions concerning for ischemic changes Medical Decision Making - Medical Decision Making Upon arrival the patient was placed into room 1. A thorough history and physical exam was performed. IV is established. Laboratory studies were conducted. Orthostatics are attempted to be obtained. Patient is noted to have a blood pressure of 100/64 lying with hr of 72. Upon sitting up the patient's blood pressure does drop to 89/64 with a heart rate of 75. We do attempt to stand the patient however she begins to have emesis and dizziness. She is unable to tolerate standing at this time. She was given a liter bolus of normal saline. Laboratory studies are conducted. It does take 3 hours to get a 1 L bolus of saline into the patient because of her difficult IV access. The patient is reevaluated after fluid administration. We do attempt to obtain orthostatics again. Patient's blood pressure does go from 103/74 with a heart rate of 75 to a blood pressure of 90/66 with a pulse rate of 73 upon sitting. Patient once again is unable to tolerate standing and she gets nauseated and dizzy. I discussed with the patient the diagnosis, differential and treatment options. Patient feels comfortable going home at this time and therefore I do call and speak with Dr. Jacobo. Does agree to obs the patient until the AM when her blood pressure medications have wore off. I did instruct family that she will need to discontinue her blood pressure medications as this was the consensus during last hospitalization that her blood pressure runs low due to these medications. Family does understand this. Patient remained in stable c ondition awaiting a bed on the floor - Lab Data Result diagrams: 01/12/21 07:26 01/12/21 07:26 Lab Results 01/11/21 01/11/21 01/11/21 Range/Units 16:17 16:17 16:17 WBC 14.6 H (3.8-10.6) k/uL RBC 4.90 (3.80-5.40) m/uL Hgb 13.4 (11.4-16.0) gm/dL Hct 42.6 (34.0-46.0) % MCV 86.9 (80.0-100.0) fL MCH 27.3 (25.0-35.0) pg MCHC 31.4 (31.0-37.0) g/dL RDW 13.5 (11.5-15.5) % Plt Count 403 (150-450) k/uL MPV 8.2 Neutrophils % 58 % Lymphocytes % 34 % Monocytes % 3 % Eosinophils % 3 % Basophils % 1 % Neutrophils # 8.5 H (1.3-7.7) k/uL Lymphocytes # 4.9 H (1.0-4.8) k/uL Monocytes # 0.5 (0-1.0) k/uL Eosinophils # 0.4 (0-0.7) k/uL Basophils # 0.1 (0-0.2) k/uL PT 10.3 (9.0-12.0) sec INR 1.0 (<1.2) APTT 20.4 L (22.0-30.0) sec Sodium 139 (137-145) mmol/L Potassium 4.7 (3.5-5.1) mmol/L Chloride 103 (98-107) mmol/L Carbon Dioxide 25 (22-30) mmol/L Anion Gap 11 mmol/L BUN 20 H (7-17) mg/dL Creatinine 1.56 H (0.52-1.04) mg/dL Est GFR (CKD-EPI)AfAm 38 (>60 ml/min/1.73 sqM) Est GFR (CKD-EPI)NonAf 33 (>60 ml/min/1.73 sqM) Glucose 323 H (74-99) mg/dL Calcium 9.6 (8.4-10.2) mg/dL Total Bilirubin 0.5 (0.2-1.3) mg/dL AST 42 H (14-36) U/L ALT 31 (4-34) U/L Alkaline Phosphatase 172 H (38-126) U/L Troponin I (0.000-0.034) ng/mL Total Protein 6.9 (6.3-8.2) g/dL Albumin 3.8 (3.5-5.0) g/dL Urine Color Urine Appearance (Clear) Urine pH (5.0-8.0) Ur Specific [place] (1.001-1.035) Urine Protein (Negative) Urine Glucose (UA) (Negative) Urine Ketones (Negative) Urine Blood (Negative) Urine Nitrite (Negative) Urine Bilirubin (Negative) Urine Urobilinogen (<2.0) mg/dL Ur Leukocyte Esterase (Negative) Urine RBC (0-5) /hpf Urine WBC (0-5) /hpf Ur Squamous Epith Cells (0-4) /hpf Urine Bacteria (None) /hpf Hyaline Casts (0-2) /lpf Urine Mucus (None) /hpf Urine Yeast (Budding) (None) /hpf 01/11/21 01/11/21 Range/Units 16:17 18:27 WBC (3.8-10.6) k/uL RBC (3.80-5.40) m/uL Hgb (11.4-16.0) gm/dL Hct (34.0-46.0) % MCV (80.0-100.0) fL MCH (25.0-35.0) pg MCHC (31.0-37.0) g/dL RDW (11.5-15.5) % Plt Count (150-450) k/uL MPV Neutrophils % % Lymphocytes % % Monocytes % % Eosinophils % % Basophils % % Neutrophils # (1.3-7.7) k/uL Lymphocytes # (1.0-4.8) k/uL Monocytes # (0-1.0) k/uL Eosinophils # (0-0.7) k/uL Basophils # (0-0.2) k/uL PT (9.0-12.0) sec INR (<1.2) APTT (22.0-30.0) sec Sodium (137-145) mmol/L Potassium (3.5-5.1) mmol/L Chloride (98-107) mmol/L Carbon Dioxide (22-30) mmol/L Anion Gap mmol/L BUN (7-17) mg/dL Creatinine (0.52-1.04) mg/dL Est GFR (CKD-EPI)AfAm (>60 ml/min/1.73 sqM) Est GFR (CKD-EPI)NonAf (>60 ml/min/1.73 sqM) Glucose (74-99) mg/dL Calcium (8.4-10.2) mg/dL Total Bilirubin (0.2-1.3) mg/dL AST (14-36) U/L ALT (4-34) U/L Alkaline Phosphatase (38-126) U/L Troponin I <0.012 (0.000-0.034) ng/mL Total Protein (6.3-8.2) g/dL Albumin (3.5-5.0) g/dL Urine Color Yellow Urine Appearance Cloudy H (Clear) Urine pH 6.5 (5.0-8.0) Ur Specific [place] 1.019 (1.001-1.035) Urine Protein 2+ H (Negative) Urine Glucose (UA) Trace H (Negative) Urine Ketones Negative (Negative) Urine Blood Negative (Negative) Urine Nitrite Negative (Negative) Urine Bilirubin Negative (Negative) Urine Urobilinogen <2.0 (<2.0) mg/dL Ur Leukocyte Esterase Trace H (Negative) Urine RBC 2 (0-5) /hpf Urine WBC 4 (0-5) /hpf Ur Squamous Epith Cells 35 H (0-4) /hpf Urine Bacteria Rare H (None) /hpf Hyaline Casts 52 H (0-2) /lpf Urine Mucus Occasional H (None) /hpf Urine Yeast (Budding) Occasional H (None) /hpf Disposition Clinical Impression: Near syncope, Vomiting, Orthostatic hypotension Disposition: ADMITTED IP TO THIS [facility] Condition: Stable Is patient prescribed a controlled substance at d/c from ED?: No Decision to Admit Reason: Admit from EC Decision Date: 01/11/21 Decision Time: 19:27
[2021-01-11 17:21] LABS: Prothrombin Time 10.3 sec (9.0-12.0)
[2021-01-11 17:23] LABS: Partial Thromboplastin Time 20.4 sec (22.0-30.0)
[2021-01-11] MEDS ORDERED: ONDANSETRON 4 MG/2 ML VIAL IVP STA (18:10)
[2021-01-11] MEDS ORDERED: fentaNYL (PF) 50 MCG/ML 2 ML AMP IVP STA (18:10)
[2021-01-11 18:44] LABS: Appearance,Urine Cloudy (Clear); Bacteria,Urine Rare /hpf; Bilirubin,Urine Negative (Negative); Blood,Urine Negative (Negative); Budding Yeast,Urine Occasional /hpf; Color,Urine Yellow; Glucose,Urine (UA) Trace (Negative); Hyaline Casts,Urine 52 /lpf (0-2); Ketones,Urine Negative (Negative); Leukocyte Esterase,Urine Trace (Negative); Mucus,Urine Occasional /hpf; Nitrite,Urine Negative (Negative); PH, Urine 6.5 (5.0-8.0); Protein,Urine 2+ (Negative); RBC,Urine 2 /hpf (0-5); Specific Gravity,Urine 1.019 (1.001-1.035); Squamous Epithelial Cell,Urine 35 /hpf (0-4); Urobilinogen,Urine <2.0 mg/dL (<2.0); WBC,Urine 4 /hpf (0-5)
[2021-01-11] MEDS ORDERED: NALOXONE 0.4 MG/ML 1 ML VIAL IV PRN (19:27)
[2021-01-11] MEDS ORDERED: ONDANSETRON 4 MG/2 ML VIAL IVP PRN (19:27)
[2021-01-11 21:00] LABS: Glucose,Whole Blood 304 mg/dL (75-99)
--- NOTE | 2021-01-11 22:53 | P.HPIM ---
History of Present Illness H&P Date: 01/11/21 Patient is a 70-year-old female with a PMH of type II DM, hypertension, hyperlipidemia, A. fib not on anticoagulation, and coronary artery disease who presented to the emergency room with complaints of dizziness and nausea vomiting. Of note, the patient was recently admitted to the hospital on 01/04 with similar complaints, at which time she was found to be hypotensive and her multiple antihypertensives were held and she was found to have positive orthostatics. The patient was also treated for UTI and was subsequently discharged home on Sunday 01/07 with instructions to discontinue her antihyp ertensives. The patient and her daughter at the bedside note that following discharge, the patient was not aware that she was to hold her antihypertensives and that she restarted her usual regimen on Friday night. Patient reports that she was at [facility] earlier today seeing a vascular surgeon for her carotid artery stenosis when she was using the restroom and suddenly felt lightheaded. The patient then developed nausea and had 3-4 episodes of nonbloody nonbilious vomiting. She was subsequently brought to the emergency room. Patient reported dizziness when she attempted to stand up. Reported feeling tired at the time of interview. She denied loss of consciousness, chest discomfort, shortness of breath, or palpitations. She reported some suprapubic discomfort due to her multiple episodes of vomiting. Denied diarrhea, fever, cough, or headache. Notes that her nausea had improved by the time of interview. In the emergency room, an EKG revealed normal sinus rhythm with sinus arrhythmia at 81 bpm. Laboratory evaluation was remarkable for WBC count of 14.6, BUN 20, creatinine 1.56, troponin less than 0.012, AST 42, and alk phos 172. Review of Systems Pertinent positives and negatives as discussed in HPI, a complete review of systems was performed and all other systems are negative. Past Medical History Past Medical History: Atrial Fibrillation, Cancer, CVA/TIA, Diabetes Mellitus, H yperlipidemia, Hypertension Additional Past Medical History / Comment(s): Hepatocellular carcinoma (in remission), had one dose of chemo 2014, TIA X4, hiatal hernia, spinal stenosis, degenerative disc disease involving L3 and L4, diabetic peripheral neuropathy, hyperactive bladder, history of septic left knee joint post arthroplasty. restless leg syndrome. patient states [facility] comes out 2x/week 12/31 History of Any Multi-Drug Resistant Organisms: MRSA Date of last positivie culture/infection: 2010 MDRO Source:: Left knee Past Surgical History: Adenoidectomy, Bariatric Surgery, Cholecystectomy, Heart Catheterization With Stent, Hernia Repair, Hysterectomy, Joint Replacement, Orthopedic Surgery, Tonsillectomy Additional Past Surgical History / Comment(s): Lap band placed in 2004, prolapsed & removed in 2005, neuro stimulator in back, one stent to LAD, left knee arthroscopic surgery, right total knee arthroplasty, left total knee arthroplasty 10/01/2011, repair of quadriceps tendon 08/21/2011, left knee patellar tendon repair 09/24/2011, removal of the hardware of the left total knee arthroplasty with implantation of the antibiotic spacer October 08 2011, total left knee hardware replacement in May 2012,. trigger finger, left hand in 2003 with subsequent reversal in 2005. Uses a walker or wheelchair Past Anesthesia/Blood Transfusion Reactions: No Reported Reaction Additional Past Anesthesia/Blood Transfusion Reaction / Comment(s): has woken up during a procedure while under anesthesia Date of Last Stent Placement:: 05/17/2010 Past Psychological History: Anxiety, Depression Additional Psychological History / Comment(s): Pt resides with her katie, Sonam and her son in law. She ambulates rarely with a walker, mostly is in a wheelchair. Pt feeds herself. Daughter Sonam is pt's DPOA and caregiver. Smoking Status: Never smoker Past Alcohol Use History: None Reported Past Drug Use History: None Reported - Past Family History Mother Family Medical History: Congestive Heart Failure (CHF) Father Family Medical History: Myocardial Infarction ([place]) Additional Family Medical History / Comment(s): Father at the age of 59 yrs from [place] Medications and Allergies Home Medications Medication Instructions Recorded Confirmed Type Pantoprazole Sodium 40 mg PO DAILY 08/10/14 01/11/21 History Venlafaxine HCl [Effexor] 75 mg PO QAM 05/18/17 01/11/21 History Venlafaxine HCl [Effexor] 150 mg PO HS 05/18/17 01/11/21 History rOPINIRole HCL [Requip] 0.25 mg PO HS 06/06/19 01/11/21 History INSULIN ASPART (NovoLOG) [NovoLOG See Protocol SQ AC-TID 12/09/19 01/11/21 History (formulary)] Ferrous Gluconate 324 mg PO DAILY 05/08/20 01/11/21 History Gabapentin [Neurontin] 300 mg PO HS #3 cap 12/07/20 01/11/21 Rx Insulin Glargine,Hum.rec.anlog 30 unit SQ HS #0 12/07/20 01/11/21 Rx [Lantus Solostar] QUEtiapine [SEROquel] 50 mg PO HS #30 tab 12/07/20 01/11/21 Rx Atorvastatin [Lipitor] 80 mg PO DAILY #30 tab 12/25/20 01/11/21 Rx Clopidogrel [Plavix] 75 mg PO DAILY #30 tab 12/25/20 01/11/21 Rx INSULIN ASPART (NovoLOG) [NovoLOG 6 unit SQ AC-TID #1 vial 12/25/20 01/11/21 Rx (formulary)] Metoprolol Tartrate [Lopressor] 25 mg PO BID #60 tab 12/25/20 01/11/21 Rx Nitroglycerin Sl Tabs [Nitrostat] 0.4 mg SUBLINGUAL Q5M PRN #20 tab 12/25/20 01/11/21 Rx Calcium/Magnesium/Zinc 1 tab PO DAILY 01/04/21 01/11/21 History [Axtxcek-Iklfmpozw-Ctes Tablet] Cholecalciferol [Vitamin D3 (25 25 mcg PO DAILY 01/04/21 01/11/21 History Mcg = 1000 Iu)] Docusate [Colace] 100 mg PO DAILY 01/04/21 01/11/21 History Allergies Allergy/AdvReac Type Severity Reaction Status Date / Time metformin HCl Allergy "kidneys Verified 01/11/21 19:49 [From Glucophage] shut down" paper tape AdvReac Itching Uncoded 01/11/21 16:10 Physical Exam Vitals: Vital Signs Temp Pulse Pulse Pulse Resp BP BP 01/11/21 20:38 55 L 18 139/55 01/11/21 19:17 75 73 90/66 01/11/21 19:16 54 L 01/11/21 18:26 131/58 01/11/21 16:30 75 72 89/64 01/11/21 16:16 107/71 01/11/21 16:07 97.4 F L 71 18 81/56 BP BP Pulse Ox 01/11/21 20:38 01/11/21 19:17 103/74 01/11/21 19:16 124/81 01/11/21 18:26 01/11/21 16:30 100/64 01/11/21 16:16 01/11/21 16:07 97 Intake and Output 01/11/21 01/11/21 01/11/21 06:59 14:59 22:59 Other: # Voids 1 Weight 82.1 kg General: non toxic, no distress, appears at stated age, obese Derm: no unusual rashes/lesions no unusual ecchymoses, warm, dry Head: atraumatic, normocephalic, symmetric Eyes: EOMI, no lid lag, anicteric sclera, pupils equal round reactive to light ENT: Nose and ears atraumatic, no thrush, no pharyngeal erythema Neck: No thyromegaly, no cervical lymphadenopathy, trachea midline, supple Mouth: no lip lesion, mucus membranes moist Cardiovascular: S1S2 reg, no murmur, positive posterior tibial pulse bilateral, no edema, capillary refill less than 2 seconds Lungs: CTA bilateral, no rhonchi, no rales , no accessory muscle use Abdominal: soft, nontender to palpation, no guarding, no appreciable organomegaly, normal bowel sounds Ext: no gross muscle atrophy, muscle strength out of 5 in all extremities except left lower extremity 3 out of 5 (reported chronic as per patient), no contractures, Neuro: CN II-XI grossly intact, light touch intact all 4 extremities, finger to nose within normal limits, Psych: Alert, oriented, appropriate affect Results CBC & Chem 7: 01/11/21 16:17 01/11/21 16:17 Labs: Abnormal Lab Results - Last 24 Hours (Table) 01/11/21 01/11/21 01/11/21 Range/Units 16:17 16:17 16:17 WBC 14.6 H (3.8-10.6) k/uL Neutrophils # 8.5 H (1.3-7.7) k/uL Lymphocytes # 4.9 H (1.0-4.8) k/uL APTT 20.4 L (22.0-30.0) sec BUN 20 H (7-17) mg/dL Creatinine 1.56 H (0.52-1.04) mg/dL Glucose 323 H (74-99) mg/dL POC Glucose (mg/dL) (75-99) mg/dL AST 42 H (14-36) U/L Alkaline Phosphatase 172 H (38-126) U/L Urine Appearance (Clear) Urine Protein (Negative) Urine Glucose (UA) (Negative) Ur Leukocyte Esterase (Negative) Ur Squamous Epith Cells (0-4) /hpf Urine Bacteria (None) /hpf Hyaline Casts (0-2) /lpf Urine Mucus (None) /hpf Urine Yeast (Budding) (None) /hpf 01/11/21 01/11/21 Range/Units 18:27 20:59 WBC (3.8-10.6) k/uL Neutrophils # (1.3-7.7) k/uL Lymphocytes # (1.0-4.8) k/uL APTT (22.0-30.0) sec BUN (7-17) mg/dL Creatinine (0.52-1.04) mg/dL Glucose (74-99) mg/dL POC Glucose (mg/dL) 304 H (75-99) mg/dL AST (14-36) U/L Alkaline Phosphatase (38-126) U/L Urine Appearance Cloudy H (Clear) Urine Protein 2+ H (Negative) Urine Glucose (UA) Trace H (Negative) Ur Leukocyte Esterase Trace H (Negative) Ur Squamous Epith Cells 35 H (0-4) /hpf Urine Bacteria Rare H (None) /hpf Hyaline Casts 52 H (0-2) /lpf Urine Mucus Occasional H (None) /hpf Urine Yeast (Budding) Occasional H (None) /hpf Thrombosis Risk Factor Assmnt - Choose All That Apply Each Risk Factor Represents 2 Points: Age 61-74 years Thrombosis Risk Factor Assessment Total Risk Factor Score: 2 Thrombosis Risk Factor Assessment Level: Low Risk Assessment and Plan Plan: Presyncope, likely secondary to hypotension from antihypertensive use -Continue to hold antihypertensives: Vesicare, Lisinopril-HCTZ, Norvasc -Patient strongly advised on the need to discontinue the above medications -Cardiac monitoring for now -Fall precautions Chronic kidney disease stage III -At baseline -Monitor for now Chronic conditions: Type II DM, hyperlipidemia, A. fib -Lispro insulin sliding scale blood glucose monitoring -Check A1c -Continue home insulin regimen DVT prophylaxis -Heparin subq The patient is admitted with an anticipated greater than 2 midnight stay for evaluation of presyncope CODE STATUS: No Code Discussed with: Patient Anticipated discharge date: 01/[address]: Home A total of 35 minutes was spent on the care of this complex patient more than 50% of the time was spent in counseling and care coordination.
[2021-01-11] MEDS: HEPARIN SODIUM,PORCINE 5,000 UNIT/ML 1 ML VIAL SQ SCH (23:24)
[2021-01-11] MEDS: INSULIN DETEMIR (LEVEMIR) 100 UNIT/ML SYR SQ SCH (23:25)
[2021-01-11] MEDS: MORPHINE SULFATE 2 MG/ML SYRINGE IVP PRN (23:25)
[2021-01-11] MEDS: QUEtiapine 50 MG TAB PO SCH (23:26)
[2021-01-11] MEDS: SODIUM CHLORIDE 0.9% 1,000 ML IV SCH (23:27)
[2021-01-12] MEDS: MORPHINE SULFATE 2 MG/ML SYRINGE IVP PRN ×3 (05:34→18:00)
[2021-01-12 06:16] LABS: Glucose,Whole Blood 139 mg/dL (75-99)
[2021-01-12] MEDS: INSULIN ASPART (NovoLOG) 100 UNIT/ML VIAL SQ SCH ×3 (06:57→17:25)
[2021-01-12] MEDS: PANTOPRAZOLE 40 MG TABLET PO SCH (08:07)
[2021-01-12] MEDS: METOPROLOL TARTRATE 25 MG TAB PO SCH ×2 (08:07→20:57)
[2021-01-12] MEDS: CLOPIDOGREL 75 MG TAB PO SCH (08:07)
[2021-01-12] MEDS: ATORVASTATIN 80 MG TAB PO SCH (08:07)
[2021-01-12] MEDS: VENLAFAXINE HCL 75 MG TAB PO SCH (08:07)
[2021-01-12] MEDS: HEPARIN SODIUM,PORCINE 5,000 UNIT/ML 1 ML VIAL SQ SCH ×2 (08:08→15:57)
[2021-01-12 08:10] LABS: Basophils # (A) 0.1 k/uL (0-0.2); Basophils % (A) 0 %; Eosinophils # (A) 0.2 k/uL (0-0.7); Eosinophils % (A) 2 %; HCT 34.6 % (34.0-46.0); Lymphocytes # (A) 4.2 k/uL (1.0-4.8); Lymphocytes % (A) 34 %; MCH 27.9 pg (25.0-35.0); MCHC 31.9 g/dL (31.0-37.0); MCV 87.4 fL (80.0-100.0); Mean Platelet Volume 8.1; Monocytes # (A) 0.4 k/uL (0-1.0); Monocytes % (A) 3 %; Neutrophils # (A) 7.4 k/uL (1.3-7.7); Neutrophils % (A) 60 %; Platelet Count 279 k/uL (150-450); RBC 3.95 m/uL (3.80-5.40); RDW 13.4 % (11.5-15.5); WBC 12.4 k/uL (3.8-10.6)
[2021-01-12 08:39] LABS: Calcium 8.6 mg/dL (8.4-10.2); Potassium 4.1 mmol/L (3.5-5.1)
[2021-01-12 11:27] LABS: Glucose,Whole Blood 115 mg/dL (75-99)
[2021-01-12] MEDS: SODIUM CHLORIDE 0.9% 1,000 ML IV SCH (11:51)
[2021-01-12 16:43] LABS: Glucose,Whole Blood 200 mg/dL (75-99)
[2021-01-12 18:49] LABS: Hemoglobin A1C 10.8 % (4.0-6.0)
--- NOTE | 2021-01-12 20:27 | P.PN ---
Progress Note - Text Progress Note Date: 01/12/21 Chief Complaint: Chest pain History of presenting complaint: This is a 70-year-old patient of visiting physician Dr. Amanuel Wilkinson. 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 At baseline patient uses a walker. Uses a wheelchair to go outside. Lives with family. Patient was just discharged from the hospital on January 07, being admitted with low blood pressure antihypertensives were held. Treated for UTI. Patient now presents with- "The patient and her daughter at the bedside note that following discharge, the patient was not aware that she was to hold her antihypertensives and that she restarted her usual regimen on Friday night. Patient reports that she was at [facility] earlier today seeing a vascular surgeon for her carotid artery stenosis when she was using the restroom and suddenly felt light headed. The patient then developed nausea and had 3-4 episodes of nonbloody nonbilious vomiting. She was subsequently brought to the emergency room. Patient reported dizziness when she attempted to stand up. Reported feeling tired at the time of interview. She denied loss of consciousness, chest discomfort, shortness of breath, or palpitations. She reported some suprapubic discomfort due to her multiple episodes of vomiting. Denied diarrhea, fever, cough, or headache. Antihypertensives were held again. Initial blood pressure presentation was 81 x 56 Today-sitting up in bed. Eating. Dizziness much better. Receiving IV fluids. Feeling better. Review of systems: Was done for constitutional, cardiovascular, GI, pulmonary. relevant finding as above Active Medications Atorvastatin Calcium (Atorvastatin 80 Mg Tab) 80 mg PO DAILY [facility] Last Admin: 01/12/21 08:07 Dose: 80 mg Documented by: Clopidogrel Bisulfate (Clopidogrel 75 Mg Tab) 75 mg PO DAILY [facility] Last Admin: 01/12/21 08:07 Dose: 75 mg Documented by: Gabapentin (Gabapentin 300 Mg Cap) 300 mg PO [facility] Heparin Sodium (Porcine) (Heparin Sodium,Porcine 5,000 Unit/Ml 1 Ml Vial) 5,000 unit SQ Q8HR [facility] Last Admin: 01/12/21 15:57 Dose: 5,000 unit Documented by: Insulin Aspart (Insulin Aspart (Novolog) 100 Unit/Ml Vial) 5 unit SQ AC-TID [facility] Last Admin: 01/12/21 17:25 Dose: 5 unit Documented by: Insulin Detemir (Insulin Detemir (Levemir) 100 Unit/Ml Syr) 20 unit SQ [facility] Last Admin: 01/11/21 23:25 Dose: 20 unit Documented by: Metoprolol Tartrate (Metoprolol Tartrate 25 Mg Tab) 25 mg PO BID [facility] Last Admin: 01/12/21 08:07 Dose: 25 mg Documented by: Morphine Sulfate (Morphine Sulfate 2 Mg/Ml Syringe) 2 mg IVP Q6H PRN PRN Reason: Pain/Discomfort Last Admin: 01/12/21 18:00 Dose: 2 mg Documented by: Naloxone HCl (Naloxone 0.4 Mg/Ml 1 Ml Vial) 0.2 mg IV Q2M PRN PRN Reason: Opioid Reversal Ondansetron HCl (Ondansetron 4 Mg/2 Ml Vial) 4 mg IVP Q8HR PRN PRN Reason: Nausea And Vomiting Pantoprazole Sodium (Pantoprazole 40 Mg Tablet) 40 mg PO DAILY [facility] Last Admin: 01/12/21 08:07 Dose: 40 mg Documented by: Quetiapine Fumarate (Quetiapine 50 Mg Tab) 50 mg PO [facility] Last Admin: 01/11/21 23:26 Dose: 50 mg Documented by: Ropinirole HCl (Ropinirole Hcl 0.25 Mg Tab) 0.25 mg PO [facility] Venlafaxine HCl (Venlafaxine Hcl 75 Mg Tab) 75 mg PO QAM [facility] Last Admin: 01/12/21 08:07 Dose: 75 mg Documented by: Venlafaxine HCl (Venlafaxine Hcl 75 Mg Tab) 150 mg PO [facility] Past medical history to include: Atrial fibrillation, diabetes mellitus, hypertension, hyperlipidemia, hepato- cellular carcinoma in remission after 1 dose of chemotherapy, spinal stenosis, DJD including lumbar spine, diabetic peripheral neuropathy, hyperactive bladder, septic left knee joint, restless leg syndrome, coronary artery disease with stent Social history: Lives with her daughter, mEani and other family members . Uses a walker and a wheelchair. Patient's daughter is to [facility]. No history of smoking or alcohol. Physical examination: VITAL SIGNS: 97.9, 70, 18, 1 28 x 61, 94% room air GENERAL: BMI 37.3, sitting up in bed, eating EYES: Pupils equal. Conjunctiva normal. HEENT: External appearance of nose and ears normal, oral cavity grossly normal. NECK: JVD not raised; masses not palpable. HEART: First and second heart sounds are normal; no edema. LUNGS: Respiratory rate normal; distant breath sounds. ABDOMEN: Soft, nontender, liver spleen not palpable, no masses palpable. PSYCH: Able to answer simple questions. MUSCULOSKELETAL: evidence of OA in multiple joints INVESTIGATIONS, reviewed in the clinical context: White count 12.4 hemoglobin 11 platelets 279 potassium 4.1 bun 23 creatinine 1.45 EKG tracing-normal sinus rhythm Assessment and plan: -Hypotension from antihypertensives. -Coronary artery disease-cardiac catheterization revealed mild to moderate atherosclerotic plaque in the calcified LAD. For medical management patient c urrently on Lipitor Plavix Lopressor -Paroxysmal atrial fibrillation currently in sinus rhythm, on beta lupe -Chronic kidney disease stage III likely nephrosclerosis -Coronary artery disease with a history of stent -Diabetes mellitus type 2 on oral hypoglycemic. Continue home dose of insulin. Follow Accu-Cheks -Hyperlipidemia, on Lipitor -Hiatal hernia -DJD -Diabetic peripheral neuropathy -Chronic gait dysfunction uses a walker, wheelchair at baseline -Restless leg syndrome -Obesity BMI 37.3 -Mild cognitive impairment Care was discussed with the patient. Will DC IV fluids. A blood pressure remained stable. Discharge home tomorrow.
[2021-01-12] MEDS: QUEtiapine 50 MG TAB PO SCH (20:56)
[2021-01-12] MEDS: INSULIN DETEMIR (LEVEMIR) 100 UNIT/ML SYR SQ SCH (20:57)
[2021-01-12] MEDS ORDERED: GABAPENTIN 300 MG CAP PO SCH (21:00)
[2021-01-12] MEDS ORDERED: VENLAFAXINE HCL 75 MG TAB PO SCH (21:00)
[2021-01-12 21:04] LABS: Glucose,Whole Blood 201 mg/dL (75-99)
[2021-01-13] MEDS: HEPARIN SODIUM,PORCINE 5,000 UNIT/ML 1 ML VIAL SQ SCH ×2 (00:19→08:15)
[2021-01-13] MEDS: MORPHINE SULFATE 2 MG/ML SYRINGE IVP PRN ×3 (00:19→13:27)
[2021-01-13 07:28] LABS: Glucose,Whole Blood 227 mg/dL (75-99)
[2021-01-13] MEDS: INSULIN ASPART (NovoLOG) 100 UNIT/ML VIAL SQ SCH ×2 (08:15→12:37)
[2021-01-13] MEDS: ATORVASTATIN 80 MG TAB PO SCH (08:15)
[2021-01-13] MEDS: PANTOPRAZOLE 40 MG TABLET PO SCH (08:16)
[2021-01-13] MEDS: VENLAFAXINE HCL 75 MG TAB PO SCH (08:16)
[2021-01-13] MEDS: METOPROLOL TARTRATE 25 MG TAB PO SCH (08:16)
[2021-01-13] MEDS: CLOPIDOGREL 75 MG TAB PO SCH (08:16)
[2021-01-13 08:23] VITALS: RESP 18
[2021-01-13 11:27] VITALS: BMI 34.9
[2021-01-13 12:34] LABS: Glucose,Whole Blood 237 mg/dL (75-99)
[2021-01-13 12:56] VITALS: BP 165/77; PULSE 53; TEMP 99
--- NOTE | 2021-01-13 22:54 | P.DS ---
Providers Date of admission: 01/11/21 19:28 Expected date of discharge: 01/13/21 Attending physician: Sharif Ernst Primary care physician: Amanuel Wilkinson MD Hospital Course: Chief Complaint: Chest pain History of presenting complaint: This is a 70-year-old patient of visiting physician Dr. Amanuel Wilkinson. 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 At baseline patient use s a walker. Uses a wheelchair to go outside. Lives with family. Patient was just discharged from the hospital on January 07, being admitted with low blood pressure antihypertensives were held. Treated for UTI. Patient now presents with- "The patient and her daughter at the bedside note that following discharge, the patient was not aware that she was to hold her antihypertensives and that she r estarted her usual regimen on Friday night. Patient reports that she was at [facility] earlier today seeing a vascular surgeon for her carotid artery stenosis when she was using the restroom and suddenly felt lightheaded. The patient then developed nausea and had 3-4 episodes of nonbloody nonbilious vomiting. She was subsequently brought to the emergency room. Patient reported dizziness when she attempted to stand up. Reported feeling tired at the time of interview. She denied loss of consciousness, chest discomfort, shortness of breath, or palpitations. She reported some suprapubic discomfort due to her multiple episodes of vomiting. Denied diarrhea, fever, cough, or headache. Antihypertensives were held again. Initial blood pressure presentation was 81 x 56 Today-doing much better. Oral intake good. Feeling well. Blood pressures has come up,. Discussed with patient. Past medical history to include: Atrial fibrillation, diabetes mellitus, hypertension, hyperlipidemia, hepato- cellular carcinoma in remission after 1 dose of chemotherapy, spinal stenosis, DJD including lumbar spine, diabetic peripheral neuropathy, hyperactive bladder, septic left knee joint, restless leg syndrome, coronary artery disease with stent Social history: Lives with her daughterEmani and other family members . Uses a walker and a wheelchair. Patient's daughter is to [facility]. No history of smoking or alcohol. Physical examination: VITAL SIGNS: 98.1, 53, 18, 139 with 72, 95% room air GENERAL: BMI 37.3, sitting up in bed, eating EYES: Pupils equal. Conjunctiva normal. HEENT: External appearance of nose and ears normal, oral cavity grossly normal. NECK: JVD not raised; masses not palpable. HEART: First and second heart sounds are normal; no edema. LUNGS: Respiratory rate normal; distant breath sounds. ABDOMEN: Soft, nontender, liver spleen not palpable, no masses palpable. PSYCH: Answering questions MUSCULOSKELETAL: evidence of OA in multiple joints INVESTIGATIONS, reviewed in the clinical context: White count 12.4 hemoglobin 11 platelets 279 potassium 4.1 bun 23 creatinine 1.45 EKG tracing-normal sinus rhythm Assessment and plan: -Hypotension from antihypertensives. -Coronary artery disease-cardiac catheterization revealed mild to moderate atherosclerotic plaque in the calcified LAD. For medical management patient currently on Lipitor Plavix Lopressor -Paroxysmal atrial fibrillation currently in sinus rhythm, on beta lupe -Chronic kidney disease stage III likely nephrosclerosis -Coronary artery disease with a history of stent -Diabetes mellitus type 2 on oral hypoglycemic. Continue home dose of insulin. Follow Accu-Cheks -Hyperlipidemia, on Lipitor -Hiatal hernia -DJD -Diabetic peripheral neuropathy -Chronic gait dysfunction uses a walker, wheelchair at baseline -Restless leg syndrome -Obesity BMI 37.3 -Mild cognitive impairment Disposition: Home Patient Condition at Discharge: Stable Plan - Discharge Summary Discharge Rx Participant: No New Discharge Prescriptions: Continue Pantoprazole Sodium 40 mg PO DAILY Venlafaxine HCl [Effexor] 150 mg PO HS Venlafaxine HCl [Effexor] 75 mg PO QAM rOPINIRole HCL [Requip] 0.25 mg PO HS Ferrous Gluconate 324 mg PO DAILY QUEtiapine [SEROquel] 50 mg PO HS #30 tab Gabapentin [Neurontin] 300 mg PO HS #3 cap Atorvastatin [Lipitor] 80 mg PO DAILY #30 tab Metoprolol Tartrate [Lopressor] 25 mg PO BID #60 tab Nitroglycerin Sl Tabs [Nitrostat] 0.4 mg SUBLINGUAL Q5M PRN #20 tab PRN Reason: Chest Pain Clopidogrel [Plavix] 75 mg PO DAILY #30 tab Cholecalciferol [Vitamin D3 (25 Mcg = 1000 Iu)] 25 mcg PO DAILY Calcium/Magnesium/Zinc [Begmszh-Juenxcigr-Zlih Tablet] 1 tab PO DAILY Changed Insulin Glargine,Hum.rec.anlog [Lantus Solostar] 26 unit SQ HS #0 Discontinued INSULIN ASPART (NovoLOG) [NovoLOG (formulary)] See Protocol SQ AC-TID INSULIN ASPART (NovoLOG) [NovoLOG (formulary)] 6 unit SQ AC-TID #1 vial Docusate [Colace] 100 mg PO DAILY Discharge Medication List Pantoprazole Sodium 40 mg PO DAILY 08/10/14 [History] Venlafaxine HCl [Effexor] 75 mg PO QAM 05/18/17 [History] Venlafaxine HCl [Effexor] 150 mg PO HS 05/18/17 [History] rOPINIRole HCL [Requip] 0.25 mg PO HS 06/06/19 [History] Ferrous Gluconate 324 mg PO DAILY 05/08/20 [History] Gabapentin [Neurontin] 300 mg PO HS #3 cap 12/07/20 [Rx] QUEtiapine [SEROquel] 50 mg PO HS #30 tab 12/07/20 [Rx] Atorvastatin [Lipitor] 80 mg PO DAILY #30 tab 12/25/20 [Rx] Clopidogrel [Plavix] 75 mg PO DAILY #30 tab 12/25/20 [Rx] Metoprolol Tartrate [Lopressor] 25 mg PO BID #60 tab 12/25/20 [Rx] Nitroglycerin Sl Tabs [Nitrostat] 0.4 mg SUBLINGUAL Q5M PRN #20 tab 12/25/20 [Rx] Calcium/Magnesium/Zinc [Wrifjrk-Efzjwiksm-Isup Tablet] 1 tab PO DAILY 01/04/21 [History] Cholecalciferol [Vitamin D3 (25 Mcg = 1000 Iu)] 25 mcg PO DAILY 01/04/21 [History] Insulin Glargine,Hum.rec.anlog [Lantus Solostar] 26 unit SQ HS #0 01/13/21 [Rx] Follow up Appointment(s)/Referral(s): [facility], [NON-STAFF] - Amanuel Wilkinson MD [Primary Care Provider] - 1-2 days (Office closed at time of discharge. Notify office that this a follow up appointment from the hospital.) Patient Instructions/Handouts: Syncope (DC) Discharge Disposition: HOME SELF-CARE
== END 2021-01-13 15:52 | disposition home or self-care (01) | DRG 918 ==
LOC: EC 16:05 → 3SCARD 19:28
PROVIDERS: ADMIT Hospitalist; ATTEND Hospitalist
DX: T46.4X1A Poisoning by angiotensin-converting-enzyme inhibitors, accidental (unintentional), initial encounter (principal); I95.2 Hypotension due to drugs; T50.2X1A Poisoning by carbonic-anhydrase inhibitors, benzothiadiazides and other diuretics, accidental (unintentional), initial encounter; I48.91 Unspecified atrial fibrillation; E11.42 Type 2 diabetes mellitus with diabetic polyneuropathy; E11.22 Type 2 diabetes mellitus with diabetic chronic kidney disease; N18.30 Chronic kidney disease, stage 3 unspecified; I12.9 Hypertensive chronic kidney disease with stage 1 through stage 4 chronic kidney disease, or unspecified chronic kidney disease; E78.5 Hyperlipidemia, unspecified; I65.29 Occlusion and stenosis of unspecified carotid artery; N32.81 Overactive bladder; K44.9 Diaphragmatic hernia without obstruction or gangrene; I25.10 Atherosclerotic heart disease of native coronary artery without angina pectoris; M48.061 Spinal stenosis, lumbar region without neurogenic claudication; M51.36 Other intervertebral disc degeneration, lumbar region; F32.9 Major depressive disorder, single episode, unspecified; F41.9 Anxiety disorder, unspecified; G25.81 Restless legs syndrome; E66.9 Obesity, unspecified; G31.84 Mild cognitive impairment of uncertain or unknown etiology; R11.2 Nausea with vomiting, unspecified; R26.89 Other abnormalities of gait and mobility; Z20.822 Contact with and (suspected) exposure to COVID-19; Z68.37 Body mass index [BMI] 37.0-37.9, adult; Z79.4 Long term (current) use of insulin; Z90.49 Acquired absence of other specified parts of digestive tract; Z90.710 Acquired absence of both cervix and uterus; Z98.84 Bariatric surgery status; Y92.238 Other place in hospital as the place of occurrence of the external cause; Z95.5 Presence of coronary angioplasty implant and graft; Z98.890 Other specified postprocedural states; Z96.653 Presence of artificial knee joint, bilateral; Z88.8 Allergy status to other drugs, medicaments and biological substances; Z91.048 Other nonmedicinal substance allergy status; Z79.899 Other long term (current) drug therapy; Z79.02 Long term (current) use of antithrombotics/antiplatelets; Z86.73 Personal history of transient ischemic attack (TIA), and cerebral infarction without residual deficits; Z85.05 Personal history of malignant neoplasm of liver; Z92.21 Personal history of antineoplastic chemotherapy; Z86.14 Personal history of Methicillin resistant Staphylococcus aureus infection; Z87.440 Personal history of urinary (tract) infections; Z82.49 Family history of ischemic heart disease and other diseases of the circulatory system
CPT/HCPCS: 36415; 80048; 80053; 81001; 83036; 84484; 85025; 85610; 85730; 87635; 93005; 96361; 96374; 96375

== ENCOUNTER 2021-01-18 06:22 | Day surgery (SDC) | payer MEDICARE, OTHER ==
[2021-01-15 14:52] VITALS: BMI 31.7
[~2021-01-18 06:22] MED LIST changes: -LACTATED RINGERS 1,000 ML IV SCH; +SODIUM CHLORIDE 0.9% 1,000 ML IV SCH
[2021-01-18] MEDS ORDERED: SODIUM CHLORIDE 0.9% 1,000 ML IV ONE (06:40)
[2021-01-18 07:05] VITALS: RESP 16; TEMP 97.7
[2021-01-18 07:20] LABS: Glucose,Whole Blood 358 mg/dL (75-99)
[2021-01-18] MEDS: INSULIN ASPART (NovoLOG) 100 UNIT/ML VIAL SQ SCH ×2 (07:20→10:01)
[2021-01-18] MEDS ORDERED: LIDOCAINE 1% INJ 10MG/ML (20 ML MDV) SQ ONE (07:51)
[2021-01-18] MEDS ORDERED: fentaNYL (PF) 50 MCG/ML 2 ML AMP IV ONE (07:51)
[2021-01-18] MEDS ORDERED: MIDAZOLAM 2 MG/2 ML VIAL IV ONE (07:51)
[2021-01-18] MEDS ORDERED: IOPAMIDOL-300 100ML BTL INJ ONE (08:18)
--- NOTE | 2021-01-18 08:47 | IR ---
EXAMINATION TYPE: IR angio aortic arch DATE OF EXAM: 01/18/2021 COMPARISON: NONE HISTORY: Fluoroscopy time. Fluoroscopy was provided to the referring clinician.
--- NOTE | 2021-01-18 08:52 | P.OP ---
Date of Procedure: 01/18/21 Preoperative Diagnosis: Carotid stenosis Postoperative Diagnosis: #1: Hemodynamically severe right ICA stenosis (greater than 90%). #2: No evidence of significant left ICA stenosis. Procedure(s) Performed: #1: Ultrasound-guided cannulation right common femoral artery. #2: Arch aortogram. #3: Bilateral selective carotid angiography. #4: Otto sedation 30 minutes Implants: None. Anesthesia: local (50 g of fentanyl and 1 mg of Versed IV for moderate conscious sedation purposes) Surgeon: Tian Dash Estimated Blood Loss (ml): 10 IV fluids (ml): 200 Urine output (ml): 0 Pathology: none sent Condition: stable Disposition: no change Indications for Procedure: Patient is a 70-year-old female who on carotid duplex examination performed for neurologic symptoms was found to have a significant degree of carotid stenosis. Subsequently she did undergo a CT angiogram of her carotid arteries to confirm the degree of stenosis. Unfortunately the results of the CTA were quite discordant from the results of the carotid duplex. To fully discern the degree of carotid stenosis the patient is offered cerebral angiogram Operative Findings: Greater than 90% right ICA stenosis Description of Procedure: Patient was brought to special procedure suite. Both groins were sterilely prepped and draped in usual manner. Patient received 1 mg of Versed and 50 g of fentanyl for moderate conscious IV sedation. Utilizing ultrasound the right common femoral artery was clearly identified. 1% Xylocaine was utilized for local anesthesia of the tissues overlying this area. With the aid of ultrasound and through the anesthetized area a multipurpose needle was utilized to cannulate the artery. Once cannulated Softip guidewire is advanced into the artery. The needle was withdrawn and a 5-Lao sheath was placed. Pigtail catheter was advanced over the guidewire and position in the ascending aortic arch. Patient was placed in the LIBYAN position. Arteriogram was performed. Subsequently utilizing the Seldinger technique the pigtail catheter was exchanged for a SurveyMonkey 2 catheter. This was utilized to select first the right common carotid and then to select the left common carotid artery. Angiogram rising multiple views of each carotid was then performed. Once adequate films were obtained the catheter was removed and the sheath was also removed. Pressure was held at the puncture site until all evidence of bleeding ceased. Patient tolerated the procedure well and was taken to the outpatient area in satisfactory and stable condition. Findings: Arch aortogram demonstrates normal arch anatomy without significant origin stenosis. Right carotid angiography demonstrates a very focal and hemodynamically severe ICA origin stenosis felt to be greater than 90%. The common carotid and the distal internal carotid and intracerebral vessels as visualized appear unremarkable. Left carotid angiography demonstrates the common external and internal carotid arteries to demonstrate minimal in the way of carotid occlusive disease.
[2021-01-18 08:58] LABS: Glucose,Whole Blood 296 mg/dL (75-99)
[2021-01-18 12:35] VITALS: PULSE 60
[2021-01-18 13:40] VITALS: BP 147/71
== END 2021-01-18 13:40 | disposition home or self-care (01) ==
LOC: CATHCVL 06:22
PROVIDERS: ATTEND Surgery
DX: I65.21 Occlusion and stenosis of right carotid artery (principal); I10 Essential (primary) hypertension; E11.9 Type 2 diabetes mellitus without complications; E78.5 Hyperlipidemia, unspecified; G25.81 Restless legs syndrome; Z90.710 Acquired absence of both cervix and uterus; Z98.890 Other specified postprocedural states; Z90.89 Acquired absence of other organs; Z83.3 Family history of diabetes mellitus; Z79.82 Long term (current) use of aspirin; Z79.4 Long term (current) use of insulin; Z79.899 Other long term (current) drug therapy; Z88.8 Allergy status to other drugs, medicaments and biological substances
CPT/HCPCS: 36222; C1894; C1769 ×3; J2250; J2001; J3010; Q9967

== ENCOUNTER 2021-02-06 23:20 | Inpatient (IN) | payer MEDICARE, OTHER ==
[2021-02-06] MEDS ORDERED: SODIUM CHLORIDE 0.9% 1,000 ML IV STA (23:34)
--- NOTE | 2021-02-06 23:39 | ED ---
General Adult HPI - General Source: patient, RN notes reviewed <Héctor Canales - Last Filed: 02/06/21 23:35> - History of Present Illness -: unknown Location: head (Altered), chest (Short of breath with increased work of breathing) Severity scale (1-10): 10 Quality: constant Consistency: constant Improves with: none Worsens with: none Associated Symptoms: confusion, cough, diaphoresis, malaise, shortness of breath, weakness Treatments Prior to Arrival: none <Berny Lilly - Last Filed: 02/07/21 01:19> - General Chief complaint: Altered Mental Status Stated complaint: UTI - History of Present Illness Initial comments: Patient is a 71-year-old female that presents to the emergency department via EMS with the complaint of UTI. Patient was lying in bed in mild distress but no pain. Patient was poor historian and could not answer questions due to being slightly altered. She did know where she was at, time and her name. (Héctor Canales) This is a 71-year-old female presenting in severe distress. Patient was sent DF for evaluation of altered mental status. Patient unable to answer questions secondary severe clinical distress, history is obtained from EMS and patient's prior charting (Berny Lilly) - Related Data Home Medications Medication Instructions Recorded Confirmed Pantoprazole Sodium 40 mg PO DAILY 08/10/14 01/18/21 Venlafaxine HCl [Effexor] 75 mg PO [facility] 05/18/17 01/15/21 Venlafaxine HCl [Effexor] 150 mg PO HS 05/18/17 01/18/21 rOPINIRole HCL [Requip] 0.25 mg PO HS 06/06/19 01/18/21 Ferrous Gluconate 324 mg PO DAILY 05/08/20 01/18/21 Calcium/Magnesium/Zinc 1 tab PO DAILY 01/04/21 01/18/21 [Uxeseyx-Jsluuvfio-Uluz Tablet] Cholecalciferol [Vitamin D3 (25 25 mcg PO DAILY 01/04/21 01/18/21 Mcg = 1000 Iu)] Insulin Aspart [NovoLOG] [address] [facility] 01/15/21 01/18/21 Insulin Glargine,Hum.rec.anlog 30 unit SQ HS 03/08/21 03/11/21 [Lantus Solostar] Previous Rx's Medication Instructions Recorded Gabapentin [Neurontin] 300 mg PO HS #3 cap 12/07/20 QUEtiapine [SEROquel] 50 mg PO HS #30 tab 12/07/20 Atorvastatin [Lipitor] 80 mg PO DAILY #30 tab 12/25/20 Clopidogrel [Plavix] 75 mg PO DAILY #30 tab 12/25/20 Metoprolol Tartrate [Lopressor] 25 mg PO BID #60 tab 12/25/20 Nitroglycerin Sl Tabs [Nitrostat] 0.4 mg SUBLINGUAL Q5M PRN #20 tab 12/25/20 Allergies Allergy/AdvReac Type Severity Reaction Status Date / Time metformin HCl Allergy "kidneys Verified 01/15/21 15:01 [From Glucophage] shut down" paper tape AdvReac Itching Uncoded 01/15/21 15:01 Review of Systems ROS Other: All systems not noted in ROS Statement are negative. <Héctor Canales - Last Filed: 02/06/21 23:35> ROS Other: All systems not noted in ROS Statement are negative. <Berny Lilly - Last Filed: 02/07/21 01:19> ROS Statement: Those systems with pertinent positive or pertinent negative responses have been documented in the HPI. Past Medical History Past Medical History: Atrial Fibrillation, Cancer, CVA/TIA, Diabetes Mellitus, Hyperlipidemia, Hypertension Additional Past Medical History / Comment(s): Hepatocellular carcinoma (in remission), had one dose of chemo 2015, TIA X4, hiatal hernia, spinal stenosis, degenerative disc disease involving L3 and L4, diabetic peripheral neuropathy, hyperactive bladder, history of septic left knee joint post arthroplasty. restless leg syndrome. [facility] home healthcare comes out 2x/week 12/31 History of Any Multi-Drug Resistant Organisms: MRSA Date of last positivie culture/infection: 2010 MDRO Source:: Left knee Past Surgical History: Adenoidectomy, Bariatric Surgery, Cardiac Ablation, Cholecystectomy, Heart Catheterization With Stent, Hernia Repair, Hysterectomy, Joint Replacement, Orthopedic Surgery, Tonsillectomy Additional Past Surgical History / Comment(s): Lap band placed in 2003, prolapsed & removed in 2005, neuro stimulator in back, L& R knee surgery, R & L total knee arthroplasty, repair of quadriceps tendon,left knee patellar tendon repair, removal of the hardware of the left total knee arthroplasty with implantation of the antibiotic spacer October 08 2011, total left knee hardware replacement in May 2012, trigger finger, left hand in 2003 with subsequent reversal in 2005. Uses a walker or wheelchair Past Anesthesia/Blood Transfusion Reactions: No Reported Reaction Additional Past Anesthesia/Blood Transfusion Reaction / Comment(s): has woken up during a procedure while under anesthesia Date of Last Stent Placement:: 05/17/2010 Smoking Status: Never smoker - Past Family History Mother Family Medical History: Congestive Heart Failure (CHF) Father Family Medical History: Myocardial Infarction (OR) Additional Family Medical History / Comment(s): Father at the age of 59 yrs from OR <Héctor Canales - Last Filed: 02/06/21 23:35> General Exam Limitations: altered mental status General appearance: alert, lethargic, in distress (Mild), obese Head exam: Present: atraumatic, normocephalic, normal inspection Eye exam: Present: normal appearance, PERRL, EOMI. Absent: scleral icterus, conjunctival injection, periorbital swelling Neck exam: Present: normal inspection. Absent: tenderness, meningismus, lymphadenopathy Respiratory exam: Present: normal lung sounds bilaterally. Absent: respiratory distress, wheezes, rales, rhonchi, stridor Cardiovascular Exam: Present: regular rate, normal rhythm, normal heart sounds. Absent: systolic murmur, diastolic murmur, rubs, gallop, clicks GI/Abdominal exam: Present: soft, normal bowel sounds. Absent: distended, tenderness, guarding, rebound, rigid Extremities exam: Present: normal inspection, full ROM, normal capillary refill. Absent: tenderness, pedal edema, joint swelling, calf tenderness Neurological exam: Present: alert, oriented X3, CN II-XII intact Skin exam: Present: warm, dry, intact, normal color, other (Face was flushed and pale.). Absent: rash <Héctor Canales - Last Filed: 02/06/21 23:35> General appearance: alert, in no apparent distress, anxious, lethargic, in distr ess (Severe), obese Head exam: Present: atraumatic, normocephalic, normal inspection Eye exam: Present: normal appearance, PERRL, EOMI. Absent: scleral icterus, conjunctival injection, periorbital swelling ENT exam: Present: normal exam, mucous membranes moist Neck exam: Present: normal inspection. Absent: tenderness, meningismus, lymphadenopathy Respiratory exam: Present: respiratory distress, rhonchi, accessory muscle use, decreased breath sounds, prolonged expiratory. Absent: wheezes, rales, stridor Cardiovascular Exam: Present: regular rate, normal rhythm, normal heart sounds. Absent: systolic murmur, diastolic murmur, rubs, gallop, clicks GI/Abdominal exam: Present: soft, normal bowel sounds. Absent: distended, tenderness, guarding, rebound, rigid Extremities exam: Present: normal inspection, full ROM, normal capillary refill. Absent: tenderness, pedal edema, joint swelling, calf tenderness Back exam: Present: normal inspection Neurological exam: Present: alert, oriented X3, CN II-XII intact Psychiatric exam: Present: normal affect, normal mood Skin exam: Present: warm, dry, intact, normal color. Absent: rash <Berny Lilly - Last Filed: 02/07/21 01:19> Course <Berny Lilly - Last Filed: 02/07/21 01:19> Vital Signs 02/06/21 23:23 Temperature 97.6 F Pulse Rate 68 Respiratory 18 Rate Blood Pressure 123/57 O2 Sat by Pulse 65 L Oximetry - Reevaluation(s) Reevaluation #1: 02/07/21 00:02 Medical record is reviewed (Berny Lilly) Reevaluation #2: 02/07/21 00:02 Patient severe respiratory distress, place on supplemental O2 nonrebreather for hypoxia, then placed on BiPAP for failure to increase oxygen above 82 (Berny Lilly) Reevaluation #3: 02/07/21 01:18 Patient is found to be a no code patient (Berny Lilly) - Consultations Consultation #1: Spoke with Dr. Tinsley who will admit the patient (Berny Lilly) EKG Findings - EKG Comments: EKG Findings:: Ventricular rate 69 bpm, LA interval 184 ms, QRS duration 78 ms, QT/QTc 430/460 ms, PareT axes 78/18/-11. Normal sinus rhythm, nonspecific ST and T-wave abnormality, abnormal ECG. <Héctor Canales - Last Filed: 02/06/21 23:35> - EKG Comments: EKG Findings:: EKG shows sinus rhythm 69 LA 184 QRS 78 QTc 460 <Berny Lilly - Last Filed: 02/07/21 01:19> Medical Decision Making - EKG Data -: EKG Interpreted by Ms EKG shows normal: sinus rhythm Rate: normal <Héctor Canales - Last Filed: 02/06/21 23:35> - Lab Data Result diagrams: 02/06/21 23:48 02/06/21 23:48 <Berny Lilly - Last Filed: 02/07/21 01:19> - Medical Decision Making 71-year-old female walked in mental status arrived via EMS with the complaint of UTI. EKG, crocheter, oxygen via nasal cannula at 2 L/m, labs, chest x-ray, 1 normal saline ordered. (Héctor Canales) 71 female to the ER for evaluation patient severe respiratory distress and unresponsiveness secondary to coronavirus pneumonia with hypoxia. Patient will admit for persistent supportive care (Berny Lilly) - Lab Data Lab Results 02/06/21 02/06/21 02/06/21 Range/Units 23:48 23:48 23:48 WBC 8.0 (3.8-10.6) k/uL RBC 4.11 (3.80-5.40) m/uL Hgb 11.5 (11.4-16.0) gm/dL Hct 34.7 (34.0-46.0) % MCV 84.5 (80.0-100.0) fL MCH 27.9 (25.0-35.0) pg MCHC 33.0 (31.0-37.0) g/dL RDW 13.7 (11.5-15.5) % Plt Count 223 (150-450) k/uL MPV 9.0 Neutrophils % 81 % Lymphocytes % 13 % Monocytes % 4 % Eosinophils % 0 % Basophils % 0 % Neutrophils # 6.5 (1.3-7.7) k/uL Lymphocytes # 1.1 (1.0-4.8) k/uL Monocytes # 0.3 (0-1.0) k/uL Eosinophils # 0.0 (0-0.7) k/uL Basophils # 0.0 (0-0.2) k/uL Sodium 132 L (137-145) mmol/L Potassium 5.4 H (3.5-5.1) mmol/L Chloride 101 (98-107) mmol/L Carbon Dioxide 19 L (22-30) mmol/L Anion Gap 12 mmol/L BUN 54 H (7-17) mg/dL Creatinine 1.69 H (0.52-1.04) mg/dL Est GFR (CKD-EPI)AfAm 34 (>60 ml/min/1.73 sqM) Est GFR (CKD-EPI)NonAf 30 (>60 ml/min/1.73 sqM) Glucose 327 H (74-99) mg/dL Plasma Lactic Acid Fabio (0.7-2.0) mmol/L Calcium 8.3 L (8.4-10.2) mg/dL Phosphorus (2.5-4.5) mg/dL Magnesium 2.3 (1.6-2.3) mg/dL Total Bilirubin 0.5 (0.2-1.3) mg/dL AST 33 (14-36) U/L ALT 11 (4-34) U/L Alkaline Phosphatase 91 (38-126) U/L Lactate Dehydrogenase (313-618) U/L Troponin I 0.032 (0.000-0.034) ng/mL C-Reactive Protein (<10.0) mg/L NT-Pro-B Natriuret Pep pg/mL Total Protein 5.9 L (6.3-8.2) g/dL Albumin 3.0 L (3.5-5.0) g/dL Urine Color Urine Appearance (Clear) Urine pH (5.0-8.0) Ur Specific Casey (1.001-1.035) Urine Protein (Negative) Urine Glucose (UA) (Negative) Urine Ketones (Negative) Urine Blood (Negative) Urine Nitrite (Negative) Urine Bilirubin (Negative) Urine Urobilinogen (<2.0) mg/dL Ur Leukocyte Esterase (Negative) Urine RBC (0-5) /hpf Urine WBC (0-5) /hpf Ur Squamous Epith Cells (0-4) /hpf Amorphous Sediment (None) /hpf Urine Bacteria (None) /hpf Hyaline Casts (0-2) /lpf Granular Casts (0) /lpf Urine Mucus (None) /hpf Coronavirus (PCR) (Not Detectd) 02/06/21 02/06/21 02/07/21 Range/Units 23:48 23:48 00:00 WBC (3.8-10.6) k/uL RBC (3.80-5.40) m/uL Hgb (11.4-16.0) gm/dL Hct (34.0-46.0) % MCV (80.0-100.0) fL MCH (25.0-35.0) pg MCHC (31.0-37.0) g/dL RDW (11.5-15.5) % Plt Count (150-450) k/uL MPV Neutrophils % % Lymphocytes % % Monocytes % % Eosinophils % % Basophils % % Neutrophils # (1.3-7.7) k/uL Lymphocytes # (1.0-4.8) k/uL Monocytes # (0-1.0) k/uL Eosinophils # (0-0.7) k/uL Basophils # (0-0.2) k/uL Sodium (137-145) mmol/L Potassium (3.5-5.1) mmol/L Chloride (98-107) mmol/L Carbon Dioxide (22-30) mmol/L Anion Gap mmol/L BUN (7-17) mg/dL Creatinine (0.52-1.04) mg/dL Est GFR (CKD-EPI)AfAm (>60 ml/min/1.73 sqM) Est GFR (CKD-EPI)NonAf (>60 ml/min/1.73 sqM) Glucose (74-99) mg/dL Plasma Lactic Acid Fabio 2.3 H* (0.7-2.0) mmol/L Calcium (8.4-10.2) mg/dL Phosphorus 4.4 (2.5-4.5) mg/dL Magnesium (1.6-2.3) mg/dL Total Bilirubin (0.2-1.3) mg/dL AST (14-36) U/L ALT (4-34) U/L Alkaline Phosphatase (38-126) U/L Lactate Dehydrogenase 1699 H (313-618) U/L Troponin I (0.000-0.034) ng/mL C-Reactive Protein 200.2 H (<10.0) mg/L NT-Pro-B Natriuret Pep 1370 pg/mL Total Protein (6.3-8.2) g/dL Albumin (3.5-5.0) g/dL Urine Color Urine Appearance (Clear) Urine pH (5.0-8.0) Ur Specific Casey (1.001-1.035) Urine Protein (Negative) Urine Glucose (UA) (Negative) Urine Ketones (Negative) Urine Blood (Negative) Urine Nitrite (Negative) Urine Bilirubin (Negative) Urine Urobilinogen (<2.0) mg/dL Ur Leukocyte Esterase (Negative) Urine RBC (0-5) /hpf Urine WBC (0-5) /hpf Ur Squamous Epith Cells (0-4) /hpf Amorphous Sediment (None) /hpf Urine Bacteria (None) /hpf Hyaline Casts (0-2) /lpf Granular Casts (0) /lpf Urine Mucus (None) /hpf Coronavirus (PCR) (Not Detectd) 02/07/21 02/07/21 Range/Units 00:11 00:11 WBC (3.8-10.6) k/uL RBC (3.80-5.40) m/uL Hgb (11.4-16.0) gm/dL Hct (34.0-46.0) % MCV (80.0-100.0) fL MCH (25.0-35.0) pg MCHC (31.0-37.0) g/dL RDW (11.5-15.5) % Plt Count (150-450) k/uL MPV Neutrophils % % Lymphocytes % % Monocytes % % Eosinophils % % Basophils % % Neutrophils # (1.3-7.7) k/uL Lymphocytes # (1.0-4.8) k/uL Monocytes # (0-1.0) k/uL Eosinophils # (0-0.7) k/uL Basophils # (0-0.2) k/uL Sodium (137-145) mmol/L Potassium (3.5-5.1) mmol/L Chloride (98-107) mmol/L Carbon Dioxide (22-30) mmol/L Anion Gap mmol/L BUN (7-17) mg/dL Creatinine (0.52-1.04) mg/dL Est GFR (CKD-EPI)AfAm (>60 ml/min/1.73 sqM) Est GFR (CKD-EPI)NonAf (>60 ml/min/1.73 sqM) Glucose (74-99) mg/dL Plasma Lactic Acid Fabio (0.7-2.0) mmol/L Calcium (8.4-10.2) mg/dL Phosphorus (2.5-4.5) mg/dL Magnesium (1.6-2.3) mg/dL Total Bilirubin (0.2-1.3) mg/dL AST (14-36) U/L ALT (4-34) U/L Alkaline Phosphatase (38-126) U/L Lactate Dehydrogenase (313-618) U/L Troponin I (0.000-0.034) ng/mL C-Reactive Protein (<10.0) mg/L NT-Pro-B Natriuret Pep pg/mL Total Protein (6.3-8.2) g/dL Albumin (3.5-5.0) g/dL Urine Color Yellow Urine Appearance Cloudy H (Clear) Urine pH 5.5 (5.0-8.0) Ur Specific Casey 1.018 (1.001-1.035) Urine Protein 2+ H (Negative) Urine Glucose (UA) 1+ H (Negative) Urine Ketones Negative (Negative) Urine Blood Small H (Negative) Urine Nitrite Negative (Negative) Urine Bilirubin Negative (Negative) Urine Urobilinogen <2.0 (<2.0) mg/dL Ur Leukocyte Esterase Negative (Negative) Urine RBC 6 H (0-5) /hpf Urine WBC 4 (0-5) /hpf Ur Squamous Epith Cells 1 (0-4) /hpf Amorphous Sediment Few H (None) /hpf Urine Bacteria Rare H (None) /hpf Hyaline Casts 34 H (0-2) /lpf Granular Casts 4 (0) /lpf Urine Mucus Rare H (None) /hpf Coronavirus (PCR) Detected A (Not Detectd) - EKG Data EKG Comments: Ventricular rate 69 bpm, LA interval 184 ms, QRS duration 78 ms, QT/QTc 430/460 ms, PareT axes 78/18/-11. Normal sinus rhythm, nonspecific ST and T-wave abnormality, abnormal ECG. (Héctor Canales) Critical Care Time Critical Care Time: Yes Total Critical Care Time: 31 <Roskopp,Berny B - Last Filed: 02/07/21 01:19> Disposition <Héctor Canales - Last Filed: 02/06/21 23:35> Is patient prescribed a controlled substance at d/c from ED?: No <Berny Lilly - Last Filed: 02/07/21 01:19> Clinical Impression: Delirium due to general medical condition, Coronavirus infection, Pneumonia due to COVID-19 virus, Hypoxia Disposition: ADMITTED IP TO THIS HOSP Condition: Critical Referrals: Shane Burnham MD [Primary Care Provider] - 1-2 days
[2021-02-06] MEDS ORDERED: IPRATROPIUM-ALBUTEROL 3 ML NEB INHALATION STA (23:52)
--- NOTE | 2021-02-07 00:11 | XR ---
EXAMINATION TYPE: XR chest 1V portable DATE OF EXAM: 02/07/2021 COMPARISON: 01/04/2021 HISTORY: Short of breath TECHNIQUE: Single view FINDINGS: There is pulmonary interstitial and airspace edema. There is neural stimulator in the thora cic spine. Heart size is normal. There is no pleural effusion. IMPRESSION: There is new pulmonary edema compared to old exam. This could be acute pneumonia or RDS. No pleural fluid seen to suggest heart failure.
[2021-02-07 00:21] LABS: Basophils % (A) 0 %; Eosinophils % (A) 0 %; HCT 34.7 % (34.0-46.0); HGB 11.5 gm/dL (11.4-16.0); Lymphocytes # (A) 1.1 k/uL (1.0-4.8); Lymphocytes % (A) 13 %; MCH 27.9 pg (25.0-35.0); MCV 84.5 fL (80.0-100.0); Monocytes # (A) 0.3 k/uL (0-1.0); Monocytes % (A) 4 %; Neutrophils # (A) 6.5 k/uL (1.3-7.7); Neutrophils % (A) 81 %; Platelet Count 223 k/uL (150-450); RBC 4.11 m/uL (3.80-5.40); RDW 13.7 % (11.5-15.5)
[2021-02-07] MEDS ORDERED: MORPHINE SULFATE 2 MG/ML SYRINGE IVP STA (00:25)
[2021-02-07 00:32] LABS: Calcium 8.3 mg/dL (8.4-10.2); Magnesium 2.3 mg/dL (1.6-2.3); Potassium 5.4 mmol/L (3.5-5.1); Total Bilirubin 0.5 mg/dL (0.2-1.3); Total Protein 5.9 g/dL (6.3-8.2)
[2021-02-07 00:59] LABS: Phosphorus 4.4 mg/dL (2.5-4.5)
[2021-02-07 01:08] LABS: Amorphous Sediment,Urine Few /hpf; Appearance,Urine Cloudy (Clear); Bacteria,Urine Rare /hpf; Bilirubin,Urine Negative (Negative); Blood,Urine Small (Negative); Color,Urine Yellow; Glucose,Urine (UA) 1+ (Negative); Granular Casts,Urine 4 /lpf (0); Hyaline Casts,Urine 34 /lpf (0-2); Ketones,Urine Negative (Negative); Leukocyte Esterase,Urine Negative (Negative); Mucus,Urine Rare /hpf; Nitrite,Urine Negative (Negative); PH, Urine 5.5 (5.0-8.0); Protein,Urine 2+ (Negative); RBC,Urine 6 /hpf (0-5); Specific Gravity,Urine 1.018 (1.001-1.035); Squamous Epithelial Cell,Urine 1 /hpf (0-4); Urobilinogen,Urine <2.0 mg/dL (<2.0); WBC,Urine 4 /hpf (0-5)
[2021-02-07 01:10] LABS: C Reactive Protein 200.2 mg/L (<10.0)
[2021-02-07] MEDS ORDERED: DEXAMETHASONE SOD PHOSPHATE 10 MG/ML 1 ML VIAL IV STA (01:16)
[2021-02-07] MEDS ORDERED: NALOXONE 0.4 MG/ML 1 ML VIAL IV PRN (01:16)
[2021-02-07] MEDS ORDERED: ONDANSETRON 4 MG/2 ML VIAL IVP PRN (01:16)
[2021-02-07 01:26] LABS: Glucose,Whole Blood 301 mg/dL (75-99)
[2021-02-07] MEDS: DEXTROSE 5%-0.45% NACL 1,000 ML IV SCH (02:07)
[2021-02-07] MEDS ORDERED: LORazepam 2 MG/ML INJ IV STA (02:53)
[2021-02-07] MEDS ORDERED: SODIUM CHLORIDE 0.9% 1,000 ML IV SCH (03:00)
[2021-02-07 03:34] LABS: INR 0.9 (<1.2); Prothrombin Time 9.6 sec (9.0-12.0)
[2021-02-07 03:39] LABS: Partial Thromboplastin Time 18.8 sec (22.0-30.0)
[2021-02-07 08:22] LABS: Glucose,Whole Blood 430 mg/dL (75-99)
[2021-02-07] MEDS ORDERED: INSULIN NPH 300 UNIT/3 ML VIAL SQ SCH ×2 (08:45→21:00)
[2021-02-07] MEDS ORDERED: ENOXAPARIN 40 MG/0.4 ML SYRINGE SQ SCH (09:00)
--- NOTE | 2021-02-07 09:41 | CT ---
EXAMINATION TYPE: CT brain wo con DATE OF EXAM: 02/07/2021 COMPARISON: 12/04/2020 HISTORY: AMS CT DLP: 1178.[address] of the brain was performed. The ventricles, basal cisterns and sulci overlying the cerebral convexities demonstrate mild enlargem ent. There is no evidence for intracranial hemorrhage or sulcal effacement. There is decreased attenuation about the periventricular white matter and deep white matter of both c erebral hemispheres, compatible with chronic small vessel ischemia. Differential diagnosis does inclu de demyelination. No mass effects are seen.No midline shift. Osseous calvarium is intact. If symptoms persist consider MRI. IMPRESSION: 1. Age related atrophic and chronic small vessel ischemic change without acute intracranial process s een at this time.
[2021-02-07] MEDS: PANTOPRAZOLE 40 MG/10 ML VIAL IV SCH (09:43)
[2021-02-07] MEDS: INSULIN ASPART (NovoLOG) 100 UNIT/ML VIAL SQ SCH ×3 (09:43→16:39)
[2021-02-07] MEDS ORDERED: INSULN ASP PRT/INSULIN ASPART 100 UNIT/ML 10 ML VIAL SQ ONE ×2 (09:44→22:05)
[2021-02-07] MEDS: INSULN ASP PRT/INSULIN ASPART 100 UNIT/ML 10 ML VIAL SQ SCH ×2 (09:44→22:05)
--- NOTE | 2021-02-07 11:11 | P.HPIM ---
History of Present Illness H&P Date: 02/07/21 HISTORY OF PRESENT ILLNESS This is a 71-year-old female patient of Dr. 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 Patient presented to [facility] emergency center due to shortness of breath, confusion, weakness, cough and diaphoresis. Patient was afebrile, heart rate 68, blood pressure 123/57, pulse ox 65%. Patient was in severe respiratory distress and placed on nonrebreather. EKG was sinus rhythm no acute ST changes. CBC was unremarkable. Sodium 132, potassium 5.4, chloride 101, CO2 19, BUN 54 and creatinine 1.69. Liver function tests normal. Troponin 0.032. Initial lactic acid 2.3 and repeat is 1.2. Blood sugars are elevated in the 300s and 400s.Phosphorus 4.4. ProBNP 1370. LDH 1699. C-reactive protein 200.2. Urinalysis negative for infection. Coronavirus PCR detected. Chest x- ray reveals new pulmonary edema compared to old exam. This could be acute pneumonia or RDS. No pleural fluid seen to suggest heart failure. CAT scan of the brain revealed age-related atrophy and chronic small vessel ischemic change without acute intracranial process. Patient is seen on the observation unit waiting for cardiac stepdown bed, pulmonary consult in place and consult added for neurology. REVIEW OF SYSTEMS Unable to be obtained due to mental status. PHYSICAL EXAMINATION Gen: This is a morbidly obese female. Patient is resting in bed and appears to be comfortable. Patient is currently on a nonrebreather mask. No respiratory distress is noted at rest. HEENT: Head is atraumatic, normocephalic. Pupils equal, round. Sclerae is anicteric. NECK: Supple. No JVD. No lymphadenopathy. No thyromegaly. LUNGS: Clear to auscultation. No wheezes or rhonchi. No intercostal retractions. HEART: Regular rate and rhythm. No murmur. ABDOMEN: Morbidly obese. Soft. Bowel sounds are present. No masses. No tenderness. EXTREMITIES: No pedal edema. No calf tenderness. Dorsalis pedis +2 bilaterally. NEUROLOGICAL: Patient opens eyes to verbal stimuli and able to provide her name. Generalized weakness, unable to follow commands.. ASSESSMENT AND PLAN 1. Acute hypoxic respiratory failure secondary to COVID19 pneumonia. Consult pulmonary medicine. Continue Lovenox 40 mg daily, Lovenox 40 mg subcu daily. 2. Metabolic encephalopathy secondary to Covid infection in a patient with history of TIAs, CVA. Consult with neurology. CAT scan of the brain negative for acute infarct. 3. Acute kidney injury with chronic kidney disease stage III. Patient is currently on IV fluids 100 mL per hour. Avoid nephrotoxic agents. Continue to monitor. 4. Elevated inflammatory markers secondary to Covid 19. Continue to monitor. 5. Metabolic acidosis secondary to Covid. Patient is currently on IV fluids. 6. Hyponatremia. Patient is on IV fluids. Continue to monitor. 7. Bradycardia. Hold metoprolol. 8. Hypertension, hypertensive cardiovascular disease with left ventricular hypertrophy. Metoprolol on hold. 9. Hyperlipidemia. Continue atorvastatin 80 mg at bedtime. 10. Diabetes mellitus type 2 uncontrolled with severe hyperglycemia. Patient started on 7030 15 units with breakfast, 10 units at bedtime, NovoLog scale before meals. 11. Paroxysmal Atrial fibrillation. Hold metoprolol. Patient is not on anticoagulation at home. 12. Severe right ICA stenosis greater than 90% status post angiogram with Dr. Watters. Continue Plavix 75 mg daily, Lipitor for secondary prevention. 13. History of coronary artery disease status post stent to LAD. Continue atorvastatin. 14. Obstructive sleep apnea. 15. History of hepatocellular carcinoma in remission. 16. Spinal stenosis status post multiple pain procedures including pain stimulator. CODE STATUS: No code. Patient will be admitted to the hospital for a minimum of 2 night stay. DISCHARGE PLAN TBD. Possibly home with [facility]. Impression and plan of care have been directed as dictated by the signing physician. Clare Mak nurse practitioner acting as scribe for signing physician. Past Medical History Past Medical History: Atrial Fibrillation, Coronary Artery Disease (CAD), Cancer, CVA/TIA, Dementia, Diabetes Mellitus, Hyperlipidemia, Hypertension, Memory Impairment, Myocardial Infarction ([place]), Vascular Disorder Additional Past Medical History / Comment(s): IDDM type II, neuropathy bilateral feet, CKD stage III, iron anemia, caratid artery disease/to see Dr. Watters on 02/15/21, hepatocellular carcinoma with one dose of chemo in 2015, TIAs x4, katie states pt is usually mostly oriented with mild confusion at times, vertigo, gait dysfunction, FALLS, spinal stenosis with chronic low back pain/has pain stimulator, DDD, hyperactive bladder, UTIs, occasiona incontinence, RLS, past s eptic L knee post arthroplasty, hiatal hernia. Last Myocardial Infarction Date:: 12/25/20 History of Any Multi-Drug Resistant Organisms: MRSA Date of last positivie culture/infection: 2010 MDRO Source:: Left knee Past Surgical History: Adenoidectomy, Bariatric Surgery, Cardiac Ablation, Cholecystectomy, Heart Catheterization, Heart Catheterization With Stent, Hernia Repair, Hysterectomy, Joint Replacement, Orthopedic Surgery, Tonsillectomy Additional Past Surgical History / Comment(s): 01/18/21 Arch study, lap band placed in 2003, prolapsed & removed in 2005, neuro stimulator in , R & L total knee arthroplasty, repair of L quadriceps tendon,left knee patellar tendon repair, removal of the hardware of the left total knee arthroplasty with implantation of the antibiotic spacer October 08 2011, total left knee hardware replacement in May 2012, trigger finger left hand in 2003 with subsequent reversal in 2005. Past Anesthesia/Blood Transfusion Reactions: No Reported Reaction Additional Past Anesthesia/Blood Transfusion Reaction / Comment(s): has woken up during a procedure while under anesthesia Date of Last Stent Placement:: 05/17/2010 Smoking Status: Never smoker - Past Family History Mother Family Medical History: Congestive Heart Failure (CHF), Diabetes Mellitus Father Family Medical History: Myocardial Infarction ([place]) Additional Family Medical History / Comment(s): Father at the age of 59 yrs from [place] Medications and Allergies Home Medications Medication Instructions Recorded Confirmed Type Pantoprazole Sodium 40 mg PO DAILY 08/10/14 02/07/21 History Venlafaxine HCl [Effexor] 75 mg PO QAM 05/18/17 02/07/21 History Venlafaxine HCl [Effexor] 150 mg PO HS 05/18/17 02/07/21 History rOPINIRole HCL [Requip] 0.25 mg PO HS 06/06/19 02/07/21 History Ferrous Gluconate 324 mg PO DAILY 05/08/20 02/07/21 History Gabapentin [Neurontin] 300 mg PO HS #3 cap 12/07/20 02/07/21 Rx Atorvastatin [Lipitor] 80 mg PO DAILY #30 tab 12/25/20 02/07/21 Rx Clopidogrel [Plavix] 75 mg PO DAILY #30 tab 12/25/20 02/07/21 Rx Metoprolol Tartrate [Lopressor] 25 mg PO BID #60 tab 12/25/20 02/07/21 Rx Nitroglycerin Sl Tabs [Nitrostat] 0.4 mg SUBLINGUAL Q5M PRN #20 tab 12/25/20 02/07/21 Rx Calcium/Magnesium/Zinc 1 tab PO DAILY 01/04/21 02/07/21 History [Scrnpjh-Uuibhbsrx-Xsid Tablet] Cholecalciferol [Vitamin D3 (25 25 mcg PO DAILY 01/04/21 02/07/21 History Mcg = 1000 Iu)] Insulin Aspart [NovoLOG] 6 units SQ ACHS 01/15/21 02/07/21 History Insulin Glargine,Hum.rec.anlog 30 unit SQ HS 01/15/21 02/07/21 History [Lantus Solostar] Solifenacin Succinate [Vesicare] 10 mg PO DAILY 02/07/21 02/07/21 History fentaNYL 50MCG/HR PATCH [Duragesic 1 patch TRANSDERM Q72H 02/07/21 02/07/21 History 50MCG/HR] Allergies Allergy/AdvReac Type Severity Reaction Status Date / Time metformin HCl AdvReac "kidneys Verified 02/07/21 08:19 [From Glucophage] shut down" paper tape AdvReac Itching Uncoded 01/15/21 15:01 Physical Exam Vitals: Vital Signs Temp Pulse Pulse Resp BP BP Pulse Ox 02/07/21 07:35 98.2 F 54 L 26 H 130/66 02/07/21 06:00 98.2 F 56 L 16 147/86 90 L 02/07/21 05:00 98 F 62 18 121/62 93 L 02/07/21 01:48 62 18 136/69 90 L 02/06/21 23:37 58 L 18 85 L 02/06/21 23:23 97.6 F 68 18 123/57 65 L Intake and Output 02/06/21 02/07/21 02/07/21 22:59 06:59 14:59 Other: Weight 145.15 kg 145.15 kg Results CBC & Chem 7: 02/06/21 23:48 02/06/21 23:48 Labs: Abnormal Lab Results - Last 24 Hours (Table) 02/06/21 02/06/21 02/07/21 Range/Units 23:48 23:48 00:00 APTT (22.0-30.0) sec Sodium 132 L (137-145) mmol/L Potassium 5.4 H (3.5-5.1) mmol/L Carbon Dioxide 19 L (22-30) mmol/L BUN 54 H (7-17) mg/dL Creatinine 1.69 H (0.52-1.04) mg/dL Glucose 327 H (74-99) mg/dL POC Glucose (mg/dL) (75-99) mg/dL Plasma Lactic Acid Fabio 2.3 H* (0.7-2.0) mmol/L Calcium 8.3 L (8.4-10.2) mg/dL Lactate Dehydrogenase 1699 H (313-618) U/L C-Reactive Protein 200.2 H (<10.0) mg/L Total Protein 5.9 L (6.3-8.2) g/dL Albumin 3.0 L (3.5-5.0) g/dL Urine Appearance (Clear) Urine Protein (Negative) Urine Glucose (UA) (Negative) Urine Blood (Negative) Urine RBC (0-5) /hpf Amorphous Sediment (None) /hpf Urine Bacteria (None) /hpf Hyaline Casts (0-2) /lpf Urine Mucus (None) /hpf Coronavirus (PCR) (Not Detectd) 02/07/21 02/07/21 02/07/21 Range/Units 00:11 00:11 01:24 APTT (22.0-30.0) sec Sodium (137-145) mmol/L Potassium (3.5-5.1) mmol/L Carbon Dioxide (22-30) mmol/L BUN (7-17) mg/dL Creatinine (0.52-1.04) mg/dL Glucose (74-99) mg/dL POC Glucose (mg/dL) 301 H (75-99) mg/dL Plasma Lactic Acid Fabio (0.7-2.0) mmol/L Calcium (8.4-10.2) mg/dL Lactate Dehydrogenase (313-618) U/L C-Reactive Protein (<10.0) mg/L Total Protein (6.3-8.2) g/dL Albumin (3.5-5.0) g/dL Urine Appearance Cloudy H (Clear) Urine Protein 2+ H (Negative) Urine Glucose (UA) 1+ H (Negative) Urine Blood Small H (Negative) Urine RBC 6 H (0-5) /hpf Amorphous Sediment Few H (None) /hpf Urine Bacteria Rare H (None) /hpf Hyaline Casts 34 H (0-2) /lpf Urine Mucus Rare H (None) /hpf Coronavirus (PCR) Detected A (Not Detectd) 02/07/21 02/07/21 Range/Units 02:40 08:21 APTT 18.8 L (22.0-30.0) sec Sodium (137-145) mmol/L Potassium (3.5-5.1) mmol/L Carbon Dioxide (22-30) mmol/L BUN (7-17) mg/dL Creatinine (0.52-1.04) mg/dL Glucose (74-99) mg/dL POC Glucose (mg/dL) 430 H (75-99) mg/dL Plasma Lactic Acid Fabio (0.7-2.0) mmol/L Calcium (8.4-10.2) mg/dL Lactate Dehydrogenase (313-618) U/L C-Reactive Protein (<10.0) mg/L Total Protein (6.3-8.2) g/dL Albumin (3.5-5.0) g/dL Urine Appearance (Clear) Urine Protein (Negative) Urine Glucose (UA) (Negative) Urine Blood (Negative) Urine RBC (0-5) /hpf Amorphous Sediment (None) /hpf Urine Bacteria (None) /hpf Hyaline Casts (0-2) /lpf Urine Mucus (None) /hpf Coronavirus (PCR) (Not Detectd)
--- NOTE | 2021-02-07 11:12 | P.CNNES ---
History of Present Illness Consult date: 02/07/21 Requesting physician: Clare Mak Reason for Consult: altered mental status History of Present Illness: This is a 71 year-old woman that has long standing poorly controlled diabetes, history of TIA, atrial fibrillation status post ablation, hyperlipidemia, hypertension, hepatocellular carcinoma in remission, diabetic peripheral neuropathy, degenerative disc disease of L3-L4 neurostimulator in the back,knee surgeries of the right and left who presented to emergency department on the 02/06/2021 for urinary tract infection. Neurology consulted for altered mental status. Most of the history is obtained from medical records and maged's nurse. Per the patient nurse she was extremely altered in the morning and had hypoxia. She was oriented to only self when nurse examined her. Workup in the hospital consisted of: Initial vital signs is a blood pressure of 123/57, heart rate of 60, respiratory of 18, temperature of 97.6 Fahrenheit axillary and the pulse ox of 65% at room air. The repeated pulse ox was 85% on nonrebreather CT of the head is reported as age-related atrophic and chronic small vessel is chemic changes without acute intracranial process seen at this time. Personally reviewed the CT of the head and I felt the patient has the no acute ischemia or subacute ischemia but has the chronic lacunar infarct over the basilar ganglia/thalamus region mostly over the right more than the left. White blood cell is 8.0 which is normal. Initial serum glucose is 327 her glucose has been uncontrolled. Her sugars has been in the range of 300-430 last checked today. BN 54 and a creatinine is 1.69. The sodium is 132. Potassium is 5.4 Calcium is 8.3 which is slightly low. Magnesium is 2.3 which is normal. AST is 33 and that ALT is 11. Yap virus PCR is detected Of note Dr. Parisi (neuro-hospitalist) invalid the patient on 12/05/2020 for altered mental status. It is impression he felt the recurrent falls, syncope is unclear etiology at. And he felt that patient's probable tendency to fall because of chronic leg weakness for multiple left knee surgeries and left hip weakness with probably resulted in buckling of the knees and falls. He recommended to continue Plavix 75 mg daily. He also had the carotid duplex was showed right ICA of 50-69% or higher. CT of the head and neck revealed after Daniel plaquing of the right ICA without significant flow limiting stenosis. And a showed normal [place]. An EEG was done on last evaluation and a showed mild to moderate background slowing consistent with encephalopathy. No upper perform activity seen that. He recommended vitamin B12 injection 1000 g once. Please defer to Dr. Slade's note for further neurological workup. Review of Systems Review of system is limited but the prone positive and negative as per HPI Past Medical History Past Medical History: Atrial Fibrillation, Coronary Artery Disease (CAD), Cancer, CVA/TIA, Dementia, Diabetes Mellitus, Hyperlipidemia, Hypertension, Memory Impairment, Myocardial Infarction ([place]), Vascular Disorder Additional Past Medical History / Comment(s): IDDM type II, neuropathy bilateral feet, CKD stage III, iron anemia, caratid artery disease/to see Dr. Watters on 02/15/21, hepatocellular carcinoma with one dose of chemo in 2014, TIAs x4, katie states pt is usually mostly oriented with mild confusion at times, vertigo, gait dysfunction, FALLS, spinal stenosis with chronic low back pain/has pain stimulator, DDD, hyperactive bladder, UTIs, occasiona incontinence, RLS, past septic L knee post arthroplasty, hiatal hernia. Last Myocardial Infarction Date:: 12/25/20 History of Any Multi-Drug Resistant Organisms: MRSA Date of last positivie culture/infection: 2010 MDRO Source:: Left knee Past Surgical History: Adenoidectomy, Bariatric Surgery, Cardiac Ablation, Cholecystectomy, Heart Catheterization, Heart Catheterization With Stent, Hernia Repair, Hysterectomy, Joint Replacement, Orthopedic Surgery, Tonsillectomy Additional Past Surgical History / Comment(s): 01/18/21 Arch study, lap band placed in 2003, prolapsed & removed in 2005, neuro stimulator in back, R & L total knee arthroplasty, repair of L quadriceps tendon,left knee patellar tendon repair, removal of the hardware of the left total knee arthroplasty with impl antation of the antibiotic spacer October 08 2011, total left knee hardware replacement in May 2012, trigger finger left hand in 2003 with subsequent reversal in 2005. Past Anesthesia/Blood Transfusion Reactions: No Reported Reaction Additional Past Anesthesia/Blood Transfusion Reaction / Comment(s): has woken up during a procedure while under anesthesia Date of Last Stent Placement:: 05/17/2010 Smoking Status: Never smoker - Past Family History Mother Family Medical History: Congestive Heart Failure (CHF), Diabetes Mellitus Father Family Medical History: Myocardial Infarction ([place]) Additional Family Medical History / Comment(s): Father at the age of 59 yrs from [place] Medications and Allergies Home Medications Medication Instructions Recorded Confirmed Type Pantoprazole Sodium 40 mg PO DAILY 08/10/14 02/07/21 History Venlafaxine HCl [Effexor] 75 mg PO QAM 05/18/17 02/07/21 History Venlafaxine HCl [Effexor] 150 mg PO HS 05/18/17 02/07/21 History rOPINIRole HCL [Requip] 0.25 mg PO HS 06/06/19 02/07/21 History Ferrous Gluconate 324 mg PO DAILY 05/08/20 02/07/21 History Gabapentin [Neurontin] 300 mg PO HS #3 cap 12/07/20 02/07/21 Rx Atorvastatin [Lipitor] 80 mg PO DAILY #30 tab 12/25/20 02/07/21 Rx Clopidogrel [Plavix] 75 mg PO DAILY #30 tab 12/25/20 02/07/21 Rx Metoprolol Tartrate [Lopressor] 25 mg PO BID #60 tab 12/25/20 02/07/21 Rx Nitroglycerin Sl Tabs [Nitrostat] 0.4 mg SUBLINGUAL Q5M PRN #20 tab 12/25/20 02/07/21 Rx Calcium/Magnesium/Zinc 1 tab PO DAILY 01/04/21 02/07/21 History [Dlpyjzy-Eeerozgdp-Hsla Tablet] Cholecalciferol [Vitamin D3 (25 25 mcg PO DAILY 01/04/21 02/07/21 History Mcg = 1000 Iu)] Insulin Aspart [NovoLOG] 6 units SQ ACHS 01/15/21 02/07/21 History Insulin Glargine,Hum.rec.anlog 30 unit SQ HS 01/15/21 02/07/21 History [Lantus Solostar] Solifenacin Succinate [Vesicare] 10 mg PO DAILY 02/07/21 02/07/21 History fentaNYL 50MCG/HR PATCH [Duragesic 1 patch TRANSDERM Q72H 02/07/21 02/07/21 History 50MCG/HR] Allergies Allergy/AdvReac Type Severity Reaction Status Date / Time metformin HCl AdvReac "kidneys Verified 02/07/21 08:19 [From Glucophage] shut down" paper tape AdvReac Itching Uncoded 01/15/21 15:01 Physical Examination - Vital Signs Vital Signs: Vital Signs Temp Pulse Pulse Resp BP BP Pulse Ox 02/07/21 07:35 98.2 F 54 L 26 H 130/66 02/07/21 06:00 98.2 F 56 L 16 147/86 90 L 02/07/21 05:00 98 F 62 18 121/62 93 L 02/07/21 01:48 62 18 136/69 90 L 02/06/21 23:37 58 L 18 85 L 02/06/21 23:23 97.6 F 68 18 123/57 65 L Intake and Output 02/06/21 02/07/21 02/07/21 22:59 06:59 14:59 Other: Weight 145.15 kg 145.15 kg GENERAL: The patient is lying in bed and is not in acute distress. CHEST: The heart rate is regular rate rhythm. No murmurs to auscultation. LUNG: Clear to auscultation bilaterally no wheezing noted throughout. Not labored breathing. ABDOMEN/GI: Bowel sounds present in all 4 quadrants. No tenderness to palpation throughout. NEUROLOGICAL: Higher mental function: The patient is awake, alert, oriented to self and place. Could not tell me the time. She is able to name objects such as pen and phone. Patient is following commands. No aphasia and no neglect. Cranial nerves: The pupils are round, equal and reactive to light and accommodation. Visual parsons are limited because of cooperation. Extraocular movement is intact no nystagmus is noted. Facial sensation is normal to touch throughout. The facial strength is normal throughout. Hearing is moderately bilaterally to hand rubs. Tongue is midline and moved [id number] without any difficulty. No dysarthria is noted. Motor: Gait is deferred. The strength is able to lift all extremities above gr avity without drift. Normal tone and bulk. Cerebellum: Could not assess becuase of cooperation. Sensation: Sensation is normal to touch throughout. Reflexes (right/left): 2+ uppers and 1+ lowers Plantars are upgoing bilaterally. Results Urine analysis it appears cloudy, nitrate was negative, leukocyte esterase is negative urine bacteria was rare. Coagulation study: PT of 9.6, INR 0.9 and PTT of 18.8. - Laboratory Findings CBC and BMP: 02/06/21 23:48 02/06/21 23:48 Abnormal Lab Findings: Abnormal Labs 02/06/21 02/06/21 02/07/21 23:48 23:48 00:00 APTT Sodium 132 L Potassium 5.4 H Carbon Dioxide 19 L BUN 54 H Creatinine 1.69 H Glucose 327 H POC Glucose (mg/dL) Plasma Lactic Acid Fabio 2.3 H* Calcium 8.3 L Lactate Dehydrogenase 1699 H C-Reactive Protein 200.2 H Total Protein 5.9 L Albumin 3.0 L Urine Appearance Urine Protein Urine Glucose (UA) Urine Blood Urine RBC Amorphous Sediment Urine Bacteria Hyaline Casts Urine Mucus Coronavirus (PCR) 02/07/21 02/07/21 02/07/21 00:11 00:11 01:24 APTT Sodium Potassium Carbon Dioxide BUN Creatinine Glucose POC Glucose (mg/dL) 301 H Plasma Lactic Acid Fabio Calcium Lactate Dehydrogenase C-Reactive Protein Total Protein Albumin Urine Appearance Cloudy H Urine Protein 2+ H Urine Glucose (UA) 1+ H Urine Blood Small H Urine RBC 6 H Amorphous Sediment Few H Urine Bacteria Rare H Hyaline Casts 34 H Urine Mucus Rare H Coronavirus (PCR) Detected A 02/07/21 02/07/21 02:40 08:21 APTT 18.8 L Sodium Potassium Carbon Dioxide BUN Creatinine Glucose POC Glucose (mg/dL) 430 H Plasma Lactic Acid Fabio Calcium Lactate Dehydrogenase C-Reactive Protein Total Protein Albumin Urine Appearance Urine Protein Urine Glucose (UA) Urine Blood Urine RBC Amorphous Sediment Urine Bacteria Hyaline Casts Urine Mucus Coronavirus (PCR) Assessment and Plan Assessment: Altered mental status due to metabolic encephalopathy with uncontrolled the sugar, hypoxia, acute on chronic kidney insufficiency) as well underlying COVID 19 pneumonia.---mentation is improving. Pneumonia due to COVID 19. Multiple lacunar stroke mostly over the right than the left (basal ganglia/thalamus and abida). From small vessel disease from her risk factors). Long standing Uncontrolled diabetes mellitus (currently ranging in 300-400's) History of vitamin B12 deficiency Reported recurrent falls, syncope and the per Dr. Parisi is mentioned that the he felt was chronic leg weakness for multiple leg knee surgery and left hip weakness resulting in buckling of the knees and falling Hyperlipidemia Right ICA plaque without siginificnat stenosis per previous CTA but per carotid duplex 50-69% stenosis (11/2020) Plan: Continue Plavix 75 mg daily and her home dose of Lipitor 80 mg daily for secondary stroke prophylaxis. The patient's will not be placed on dual antiplatelets since patient has history of fall and there is increased risk of bleed would dual antiplatelets. Vitamin B12 was 324 which is low normal on 12/05/2020. Methylmalonic acid is 1.09 which is elevated. Continue a vitamin B12 1000 g daily. Folate is 10.3 on 12/05/2020 which is normal. I ordered ammonia level and ionizied calcium. An EEG is not warranted since this is not a seizure. The patient had an EEG in the past and shows the encephalopathy and no epileptiform or seizure on the EEG. We'll defer the rest of the medical management to the primary team. The plan was discussed with the patient's nurse. Thank you for the consultation. Kory Nuñez M.D. Neuro-hospitalist Time with Patient: Greater than 30
[2021-02-07 11:56] LABS: Glucose,Whole Blood 508 mg/dL (75-99)
[2021-02-07 11:59] LABS: Glucose,Whole Blood 487 mg/dL (75-99)
[2021-02-07] MEDS: SODIUM CHLORIDE 0.9% 1,000 ML IV SCH (13:27)
[2021-02-07] MEDS ORDERED: ACETAMINOPHEN TAB 325 MG TAB PO PRN (13:41)
[2021-02-07] MEDS: CLOPIDOGREL 75 MG TAB PO SCH (13:51)
[2021-02-07 16:45] LABS: Glucose,Whole Blood 353 mg/dL (75-99)
[2021-02-07] MEDS: MORPHINE SULFATE 2 MG/ML SYRINGE IVP PRN ×2 (17:14→23:46)
--- NOTE | 2021-02-07 19:25 | P.CNPUL ---
History of Present Illness Consult date: 02/07/21 Requesting physician: Shane Burnham Reason for consult: pneumonia Chief complaint: Shortness of breath and confusion History of present illness: This is a 71-year-old female with multiple medical problems including coronary artery disease, hypertension, chronic kidney disease stage III, type 2 diabetes, obstructive sleep apnea syndrome, paroxysmal atrial fibrillation, previous history of CVA, hepatocellular carcinoma which was treated and in remission since 2014. Patient has chronic pain syndrome. Patient was brought into the hospital today mostly with symptoms of increased shortness of breath, confusion, weakness, cough, and diaphoresis. Pulse ox on arrival was 65% on room air, patient was in severe respiratory distress, placed on a nonrebreather mask, and she remains on a nonrebreather at present. Patient was also noted to have elevated inflammatory markers with LDH of 1699 and C-reactive protein of 200. Patient tested positive for rotavirus PCR. And her chest x-ray showed bilateral infiltrates questionable interstitial edema. Considering her confusion, patient had a CT of the brain which came back unremarkable. Except for chronic small vessel ischemic change. Neurology was consulted on this patient, and it was felt that the patient has acute metabolic encephalopathy with uncontrolled diabetes, hypoxia, acute on chronic kidney disease, and most likely she has what seems to be called in 19 encephalopathy. The patient herself is a very poor historian, she seems to be profoundly weak, she is presently on a nonrebreather mask, but not in respiratory distress. She knows that she is in the hospital, but could not give me any information as how she ended up in the hospital. Patient did follow simple instructions like squeezing hands and wiggling toes. Review of Systems ROS unobtainable: due to mental status (Could not get a good review of systems since the patient is a very poor historian) Past Medical History Past Medical History: Atrial Fibrillation, Coronary Artery Disease (CAD), Cancer, CVA/TIA, Dementia, Diabetes Mellitus, Hyperlipidemia, Hypertension, Memory Impairment, Myocardial Infarction ([place]), Vascular Disorder Additional Past Medical History / Comment(s): IDDM type II, neuropathy bilateral feet, CKD stage III, iron anemia, caratid artery disease/to see Dr. Watters on 02/15/21, hepatocellular carcinoma with one dose of chemo in 2015, TIAs x4, katie states pt is usually mostly oriented with mild confusion at times, vertigo, gait dysfunction, FALLS, spinal stenosis with chronic low back pain/has pain stimulator, DDD, hyperactive bladder, UTIs, occasiona incontinence, RLS, past septic L knee post arthroplasty, hiatal hernia. Last Myocardial Infarction Date:: 12/25/20 History of Any Multi-Drug Resistant Organisms: MRSA Date of last positivie culture/infection: 2010 MDRO Source:: Left knee Past Surgical History: Adenoidectomy, Bariatric Surgery, Cardiac Ablation, Cholecystectomy, Heart Catheterization, Heart Catheterization With Stent, Hernia Repair, Hysterectomy, Joint Replacement, Orthopedic Surgery, Tonsillectomy Additional Past Surgical History / Comment(s): 01/18/21 Arch study, lap band placed in 2003, prolapsed & removed in 2005, neuro stimulator in , R & L total knee arthroplasty, repair of L quadriceps tendon,left knee patellar tendon repair, removal of the hardware of the left total knee arthroplasty with implantation of the antibiotic spacer October 08 2011, total left knee hardware replacement in May 2012, trigger finger left hand in 2003 with subsequent reversal in 2005. Past Anesthesia/Blood Transfusion Reactions: No Reported Reaction Additional Past Anesthesia/Blood Transfusion Reaction / Comment(s): has woken up during a procedure while under anesthesia Date of Last Stent Placement:: 05/17/2010 Smoking Status: Never smoker - Past Family History Mother Family Medical History: Congestive Heart Failure (CHF), Diabetes Mellitus Father Family Medical History: Myocardial Infarction ([place]) Additional Family Medical History / Comment(s): Father at the age of 59 yrs from [place] Medications and Allergies Home Medications Medication Instructions Recorded Confirmed Type Pantoprazole Sodium 40 mg PO DAILY 08/10/14 02/07/21 History Venlafaxine HCl [Effexor] 75 mg PO QAM 05/18/17 02/07/21 History Venlafaxine HCl [Effexor] 150 mg PO HS 05/18/17 02/07/21 History rOPINIRole HCL [Requip] 0.25 mg PO HS 06/06/19 02/07/21 History Ferrous Gluconate 324 mg PO DAILY 05/08/20 02/07/21 History Gabapentin [Neurontin] 300 mg PO HS #3 cap 12/07/20 02/07/21 Rx Atorvastatin [Lipitor] 80 mg PO DAILY #30 tab 12/25/20 02/07/21 Rx Clopidogrel [Plavix] 75 mg PO DAILY #30 tab 12/25/20 02/07/21 Rx Metoprolol Tartrate [Lopressor] 25 mg PO BID #60 tab 12/25/20 02/07/21 Rx Nitroglycerin Sl Tabs [Nitrostat] 0.4 mg SUBLINGUAL Q5M PRN #20 tab 12/25/20 02/07/21 Rx Calcium/Magnesium/Zinc 1 tab PO DAILY 01/04/21 02/07/21 History [Vjxeasg-Brcjxtehz-Wieq Tablet] Cholecalciferol [Vitamin D3 (25 25 mcg PO DAILY 01/04/21 02/07/21 History Mcg = 1000 Iu)] Insulin Aspart [NovoLOG] 6 units SQ ACHS 01/15/21 02/07/21 History Insulin Glargine,Hum.rec.anlog 30 unit SQ HS 01/15/21 02/07/21 History [Lantus Solostar] Solifenacin Succinate [Vesicare] 10 mg PO DAILY 02/07/21 02/07/21 History fentaNYL 50MCG/HR PATCH [Duragesic 1 patch TRANSDERM Q72H 02/07/21 02/07/21 History 50MCG/HR] Allergies Allergy/AdvReac Type Severity Reaction Status Date / Time metformin HCl AdvReac "kidneys Verified 02/07/21 08:19 [From Glucophage] shut down" paper tape AdvReac Itching Uncoded 01/15/21 15:01 Physical Exam Vitals: Vital Signs Temp Pulse Pulse Resp BP BP Pulse Ox 02/07/21 15:00 98.3 F 52 L 22 118/63 90 L 02/07/21 13:21 63 16 135/87 93 L 02/07/21 12:43 56 L 24 164/69 91 L 02/07/21 07:35 98.2 F 54 L 26 H 130/66 02/07/21 06:00 98.2 F 56 L 16 147/86 90 L 02/07/21 05:00 98 F 62 18 121/62 93 L 02/07/21 01:48 62 18 136/69 90 L 02/06/21 23:37 58 L 18 85 L 02/06/21 23:23 97.6 F 68 18 123/57 65 L Intake and Output 02/07/21 02/07/21 02/07/21 06:59 14:59 22:59 Output Total 200 Balance -200 Output: Urine 200 Other: Weight 145.15 kg 145.15 kg Gen: 71-year-old female on a nonrebreather mask, comfortable, in no distress, noted to be profoundly frail and weak. HEENT: PERRLA, EOMI, nonicteric. Atraumatic, normocephalic. NECK: No neck masses no JVD no stridor. LUNGS: Symmetrical chest expansion, crackles at the base. HEART: Distant S1 and S2, no S3 gallop. ABDOMEN: Morbidly obese. Soft nontender no megaly no rebound no guarding. EXTREMITIES: No clubbing edema or cyanosis, good pulses bilaterally. NEUROLOGICAL: Patient opens eyes to verbal stimuli , Generalized weakness, follows simple instructions. Results - Laboratory Findings CBC and BMP: 02/06/21 23:48 02/06/21 23:48 PT/INR, D-dimer PT 9.6 sec (9.0-12.0) 02/07/21 02:40 INR 0.9 (<1.2) 02/07/21 02:40 Abnormal lab findings: Abnormal Labs 02/06/21 02/06/21 02/07/21 23:48 23:48 00:00 APTT Sodium 132 L Potassium 5.4 H Carbon Dioxide 19 L BUN 54 H Creatinine 1.69 H Glucose 327 H POC Glucose (mg/dL) Plasma Lactic Acid Fabio 2.3 H* Calcium 8.3 L Lactate Dehydrogenase 1699 H C-Reactive Protein 200.2 H Total Protein 5.9 L Albumin 3.0 L Urine Appearance Urine Protein Urine Glucose (UA) Urine Blood Urine RBC Amorphous Sediment Urine Bacteria Hyaline Casts Urine Mucus Coronavirus (PCR) 02/07/21 02/07/21 02/07/21 00:11 00:11 01:24 APTT Sodium Potassium Carbon Dioxide BUN Creatinine Glucose POC Glucose (mg/dL) 301 H Plasma Lactic Acid Fabio Calcium Lactate Dehydrogenase C-Reactive Protein Total Protein Albumin Urine Appearance Cloudy H Urine Protein 2+ H Urine Glucose (UA) 1+ H Urine Blood Small H Urine RBC 6 H Amorphous Sediment Few H Urine Bacteria Rare H Hyaline Casts 34 H Urine Mucus Rare H Coronavirus (PCR) Detected A 02/07/21 02/07/21 02/07/21 02:40 08:21 11:54 APTT 18.8 L Sodium Potassium Carbon Dioxide BUN Creatinine Glucose POC Glucose (mg/dL) 430 H 508 H Plasma Lactic Acid Fabio Calcium Lactate Dehydrogenase C-Reactive Protein Total Protein Albumin Urine Appearance Urine Protein Urine Glucose (UA) Urine Blood Urine RBC Amorphous Sediment Urine Bacteria Hyaline Casts Urine Mucus Coronavirus (PCR) 02/07/21 02/07/21 11:57 16:18 APTT Sodium Potassium Carbon Dioxide BUN Creatinine Glucose POC Glucose (mg/dL) 487 H 353 H Plasma Lactic Acid Fabio Calcium Lactate Dehydrogenase C-Reactive Protein Total Protein Albumin Urine Appearance Urine Protein Urine Glucose (UA) Urine Blood Urine RBC Amorphous Sediment Urine Bacteria Hyaline Casts Urine Mucus Coronavirus (PCR) - Diagnostic Findings Chest x-ray: image reviewed (As noted in HPI.) Assessment and Plan Assessment: Pression: Acute hypoxic failure secondary to covid 19 pneumonia. Acute metabolic encephalopathy, multifactorial. Acute on chronic kidney injury. Elevated inflammatory markers secondary to Covid 19 infection. Benign essential hypertension. Type 2 diabetes. Paroxysmal atrial fibrillation. History of severe right internal carotid artery stenosis. History of coronary artery disease and previous stent to LAD. History of obstructive sleep apnea syndrome. History of hepatocellular carcinoma in remission. Recommendation: Patient is obviously out of the window for remdesivir Continue present Covid 19 cocktail. And that includes: Decadron, Lovenox, vitamin D, Titrate oxygen as directed and maintain O2 sats above 90%. We'll continue to follow. Prognosis is extremely poor and guarded. Time with Patient: Greater than 30
[2021-02-07 19:52] LABS: Glucose,Whole Blood 185 mg/dL (75-99)
[2021-02-07] MEDS: VENLAFAXINE HCL 75 MG TAB PO SCH (22:06)
[2021-02-07] MEDS: ATORVASTATIN 80 MG TAB PO SCH (22:06)
[2021-02-08 06:10] LABS: Glucose,Whole Blood 207 mg/dL (75-99)
[2021-02-08] MEDS: MORPHINE SULFATE 2 MG/ML SYRINGE IVP PRN ×3 (06:23→22:53)
[2021-02-08] MEDS: INSULIN ASPART (NovoLOG) 100 UNIT/ML VIAL SQ SCH ×3 (06:24→17:38)
[2021-02-08] MEDS ORDERED: ATORVASTATIN 80 MG TAB PO SCH (09:00)
[2021-02-08] MEDS ORDERED: NON FORMULARY DRUG (Calcium/Magnesium/Zinc [Calcium-Magnesium-Zinc Tablet] 1 EACH Tablet) PO SCH (09:00)
[2021-02-08] MEDS: SODIUM CHLORIDE 0.9% 1,000 ML IV SCH (09:40)
[2021-02-08] MEDS ORDERED: INSULN ASP PRT/INSULIN ASPART 100 UNIT/ML 10 ML VIAL SQ ONE ×2 (09:52→21:14)
[2021-02-08] MEDS: INSULN ASP PRT/INSULIN ASPART 100 UNIT/ML 10 ML VIAL SQ SCH ×2 (09:52→21:14)
[2021-02-08] MEDS: CHOLECALCIFEROL 25 MCG (1000 IU) TABLET PO SCH ×2 (09:53→10:10)
[2021-02-08] MEDS: CYANOCOBALAMIN 500 MCG TAB PO SCH ×2 (09:53→10:10)
[2021-02-08] MEDS: CLOPIDOGREL 75 MG TAB PO SCH ×2 (09:53→10:10)
[2021-02-08] MEDS: DEXAMETHASONE SOD PHOSPHATE 10 MG/ML 1 ML VIAL IV SCH (09:53)
[2021-02-08] MEDS: ENOXAPARIN 30 MG/0.3 ML SYRINGE SQ SCH (09:54)
[2021-02-08] MEDS: VENLAFAXINE HCL 75 MG TAB PO SCH ×3 (09:55→21:01)
[2021-02-08] MEDS: FERROUS SULFATE 325 MG TAB PO SCH ×2 (09:55→10:10)
[2021-02-08] MEDS: PANTOPRAZOLE 40 MG/10 ML VIAL IV SCH (09:55)
[2021-02-08] MEDS ORDERED: ZIPRASIDONE 20 MG VIAL IM PRN (10:09)
[2021-02-08] MEDS: DEXTROSE 5%-0.9% NACL 1,000 ML IV SCH (10:48)
[2021-02-08] MEDS: HALOPERIDOL LACTATE 5 MG/ML 1 ML VIAL IVP PRN ×2 (10:49→21:13)
[2021-02-08 11:40] LABS: Basophils % (A) 0 %; Eosinophils % (A) 0 %; HCT 40.8 % (34.0-46.0); HGB 13.4 gm/dL (11.4-16.0); Lymphocytes # (A) 1.1 k/uL (1.0-4.8); Lymphocytes % (A) 7 %; MCH 28.2 pg (25.0-35.0); MCHC 32.9 g/dL (31.0-37.0); MCV 85.7 fL (80.0-100.0); Mean Platelet Volume 8.4; Monocytes # (A) 0.4 k/uL (0-1.0); Monocytes % (A) 2 %; Neutrophils # (A) 15.2 k/uL (1.3-7.7); Neutrophils % (A) 90 %; Platelet Count 302 k/uL (150-450); RBC 4.76 m/uL (3.80-5.40); RDW 13.8 % (11.5-15.5); WBC 16.9 k/uL (3.8-10.6)
[2021-02-08 12:04] LABS: Glucose,Whole Blood 179 mg/dL (75-99)
[2021-02-08 12:54] LABS: Albumin 3.3 g/dL (3.5-5.0); Calcium 8.8 mg/dL (8.4-10.2); Magnesium 2.3 mg/dL (1.6-2.3); Phosphorus 4.8 mg/dL (2.5-4.5); Potassium 4.8 mmol/L (3.5-5.1); Total Bilirubin 0.4 mg/dL (0.2-1.3); Total Protein 6.6 g/dL (6.3-8.2)
--- NOTE | 2021-02-08 15:00 | P.PN ---
Subjective Progress Note Date: 02/08/21 The patient is seen at bedside and she was on BIPAP machine and was moaning in pain. She was not able to tell me exactly what is going on. Objective - Vital Signs Vital signs: Vital Signs Temp 98.3 F 02/07/21 15:00 Pulse 58 L 02/08/21 12:00 Resp 22 02/08/21 12:00 BP 147/79 02/08/21 12:00 Pulse Ox 95 02/08/21 12:00 Intake & Output 02/07/21 02/08/21 02/08/21 18:59 06:59 18:59 Output Total 200 200 Balance -200 -200 Weight 145.15 kg 147 kg Output: Urine 200 200 Other: # Voids 1 - Exam GENERAL: The patient is lying in bed and seems in acute distress. She was moaning in pain. LUNG: Was on BIPAP machine. NEUROLOGICAL: Limited because of her condition. Higher mental function: The patient is awake, alert, oriented to self and place. Could not tell me the time. Cranial nerves: EOM is tracking me throughout room without visible nystagmus. The facial strength is normal throughout. Rest of cranial nerves is limited because of her condition. Motor: Gait is deferred. The strength is able to lift all extremities above gravity without drift. Cerebellum: Could not assess becuase of cooperation. Sensation: could not assess. Reflexes (right/left): 2+ uppers and 1+ lowers Plantars are upgoing bilaterally. - Labs CBC & Chem 7: 02/08/21 10:37 02/08/21 10:37 Labs: Abnormal Lab Results - Last 24 Hours (Table) 02/07/21 02/07/21 02/08/21 Range/Units 16:18 19:49 06:06 WBC (3.8-10.6) k/uL Neutrophils # (1.3-7.7) k/uL Chloride (98-107) mmol/L Carbon Dioxide (22-30) mmol/L BUN (7-17) mg/dL Creatinine (0.52-1.04) mg/dL Glucose (74-99) mg/dL POC Glucose (mg/dL) 353 H 185 H 207 H (75-99) mg/dL Phosphorus (2.5-4.5) mg/dL AST (14-36) U/L Albumin (3.5-5.0) g/dL 02/08/21 02/08/21 02/08/21 Range/Units 10:37 10:37 12:02 WBC 16.9 H (3.8-10.6) k/uL Neutrophils # 15.2 H (1.3-7.7) k/uL Chloride 109 H (98-107) mmol/L Carbon Dioxide 19 L (22-30) mmol/L BUN 70 H (7-17) mg/dL Creatinine 1.93 H (0.52-1.04) mg/dL Glucose 164 H (74-99) mg/dL POC Glucose (mg/dL) 179 H (75-99) mg/dL Phosphorus 4.8 H (2.5-4.5) mg/dL AST 40 H (14-36) U/L Albumin 3.3 L (3.5-5.0) g/dL Assessment and Plan Assessment: Altered mental status due to metabolic encephalopathy (multifactorial: uncontrolled the sugar, Acute hypoxic respiratory failure due to COVID 19 pneumonia, acute on chronic kidney insufficiency) Acute hypoxic respiratory failure secondary dut to COVID 19 pneumonia Multiple lacunar stroke mostly over the right than the left (basal ganglia/thala mus and abiad). From small vessel disease from her risk factors). Long standing Uncontrolled diabetes mellitus Leukocytosis due to medication effect (Dexamethasone) History of vitamin B12 deficiency Reported recurrent falls, syncope and the per Dr. Parisi is mentioned that the he felt was chronic leg weakness for multiple leg knee surgery and left hip weakness resulting in buckling of the knees and falling Hyperlipidemia Right ICA plaque without siginificnat stenosis per previous CTA but per carotid duplex 50-69% stenosis (11/2020) Plan: Continue Plavix 75 mg daily and her home dose of Lipitor 80 mg daily for secondary stroke prophylaxis. The patient's will not be placed on dual antiplatelets since patient has history of fall and there is increased risk of bleed would dual antiplatelets. Vitamin B12 was 324 which is low normal on 12/05/2020. Methylmalonic acid is 1.09 which is elevated. Continue a vitamin B12 1000 g daily. Folate is 10.3 on 12/05/2020 which is normal. Ionized calcium: 4.6 (normal). Ammonia level: <9 (normal). An EEG is not warranted since this is not a seizure. The patient had an EEG in the past and shows the encephalopathy and no epileptiform or seizure on the EEG. Pulmonary team is on board. We'll defer the rest of the medical management to the primary team. The plan was discussed with the patient's nurse. Will follow-up with the patient sporadically. Kory Nuñez M.D. Neuro-hospitalist Time with Patient: Less than 30
--- NOTE | 2021-02-08 16:48 | P.PN ---
Subjective Progress Note Date: 02/08/21 Principal diagnosis: Acute hypoxic respiratory failure and metabolic encephalopathy secondary to acute coviD 19 pneumonia This is a 71-year-old female with multiple medical problems including coronary artery disease, hypertension, chronic kidney disease stage III, type 2 diabetes, obstructive sleep apnea syndrome, paroxysmal atrial fibrillation, previous history of CVA, hepatocellular carcinoma which was treated and in remission since 2014. Patient has chronic pain syndrome. Patient was brought into the hospital today mostly with symptoms of increased shortness of breath, confusion, weakness, cough, and diaphoresis. Pulse ox on arrival was 65% on room air, patient was in severe respiratory distress, placed on a nonrebreather mask, and she remains on a nonrebreather at present. Patient was also noted to have elevated inflammatory markers with LDH of 1699 and C-reactive protein of 200. Patient tested positive for rotavirus PCR. And her chest x-ray showed bilateral infiltrates questionable interstitial edema. Considering her confusion, patient had a CT of the brain which came back unremarkable. Except for chronic small vessel ischemic change. Neurology was consulted on this patient, and it was felt that the patient has acute metabolic encephalopathy with uncontrolled diabetes, hypoxia, acute on chronic kidney disease, and most likely she has what seems to be called in 19 encephalopathy. The patient herself is a very poor historian, she seems to be profoundly weak, she is presently on a nonrebreather mask, but not in respiratory distress. She knows that she is in the hospital, but could not give me any information as how she ended up in the hospital. Patient did follow simple instructions like squeezing hands and wiggling toes. Patient was reevaluated today on 02/08/2021, remains quite ill, remains on BiPAP, patient is on 100% FiO2 with O2 saturation of 95%. Chest x-ray upon admission showed diffuse bilateral infiltrates involving both lungs consistent with coVID 19 pneumonitis. Patient is about the same, she remains confused, moaning and groaning, but no history could be obtained from the patient whatsoever. WBC count is elevated at 16.9 hemoglobin is normal lites are normal BUN is 70 creatinine is 1.93. Objective - Vital Signs Vital signs: Vital Signs Temp 98.3 F 02/07/21 15:00 Pulse 58 L 02/08/21 14:00 Resp 22 02/08/21 14:00 BP 147/79 02/08/21 12:00 Pulse Ox 95 02/08/21 12:00 Intake & Output 02/07/21 02/08/21 02/08/21 18:59 06:59 18:59 Output Total 200 200 Balance -200 -200 Weight 145.15 kg 147 kg Output: Urine 200 200 Other: # Voids 1 - Exam Gen: 71-year-old female on a nonrebreather mask, comfortable, in no distress, noted to be profoundly frail and weak. HEENT: PERRLA, EOMI, nonicteric. Atraumatic, normocephalic. NECK: No neck masses no JVD no stridor. LUNGS: Symmetrical chest expansion, crackles at the base. HEART: Distant S1 and S2, no S3 gallop. ABDOMEN: Morbidly obese. Soft nontender no megaly no rebound no guarding. EXTREMITIES: No clubbing edema or cyanosis, good pulses bilaterally. NEUROLOGICAL: Patient opens eyes to verbal stimuli , Generalized weakness, follows simple instructions. - Labs CBC & Chem 7: 02/08/21 10:37 02/08/21 10:37 Labs: Abnormal Lab Results - Last 24 Hours (Table) 02/07/21 02/07/21 02/08/21 Range/Units 16:18 19:49 06:06 WBC (3.8-10.6) k/uL Neutrophils # (1.3-7.7) k/uL Chloride (98-107) mmol/L Carbon Dioxide (22-30) mmol/L BUN (7-17) mg/dL Creatinine (0.52-1.04) mg/dL Glucose (74-99) mg/dL POC Glucose (mg/dL) 353 H 185 H 207 H (75-99) mg/dL Phosphorus (2.5-4.5) mg/dL AST (14-36) U/L Albumin (3.5-5.0) g/dL 02/08/21 02/08/21 02/08/21 Range/Units 10:37 10:37 12:02 WBC 16.9 H (3.8-10.6) k/uL Neutrophils # 15.2 H (1.3-7.7) k/uL Chloride 109 H (98-107) mmol/L Carbon Dioxide 19 L (22-30) mmol/L BUN 70 H (7-17) mg/dL Creatinine 1.93 H (0.52-1.04) mg/dL Glucose 164 H (74-99) mg/dL POC Glucose (mg/dL) 179 H (75-99) mg/dL Phosphorus 4.8 H (2.5-4.5) mg/dL AST 40 H (14-36) U/L Albumin 3.3 L (3.5-5.0) g/dL Assessment and Plan Assessment: Pression: Acute hypoxic failure secondary to covid 19 pneumonia. Acute metabolic encephalopathy, multifactorial. Acute on chronic kidney injury. Elevated inflammatory markers secondary to Covid 19 infection. Benign essential hypertension. Type 2 diabetes. Paroxysmal atrial fibrillation. History of severe right internal carotid artery stenosis. History of coronary artery disease and previous stent to LAD. History of obstructive sleep apnea syndrome. History of hepatocellular carcinoma in remission. Recommendation: Patient is obviously out of the window for remdesivir Continue present Covid 19 cocktail. And that includes: Decadron, Lovenox, vitamin D, Titrate oxygen as directed and maintain O2 sats above 90%. We'll continue to follow. Prognosis is extremely poor and guarded. Suggest addressing CODE STATUS on this patient, I have a strong feeling that she is not going to do well, and a DO NOT RESUSCITATE CODE STATUS would be appropriate and should be addressed with the family. Time with Patient: Less than 30
--- NOTE | 2021-02-08 16:52 | P.PN ---
Subjective Progress Note Date: 02/08/21 HISTORY OF PRESENT ILLNESS This is a 71-year-old female patient of Dr. 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 Patient presented to [facility] emergency center due to shortness of breath, confusion, weakness, cough and diaphoresis. Patient was afebrile, heart rate 68, blood pressure 123/57, pulse ox 65%. Patient was in severe respiratory distress and placed on nonrebreather. EKG was sinus rhythm no acute ST changes. CBC was unremarkable. Sodium 132, potassium 5.4, chloride 101, CO2 19, BUN 54 and creatinine 1.69. Liver function tests normal. Troponin 0.032. Initial lactic acid 2.3 and repeat is 1.2. Blood sugars are elevated in the 300s and 400s.Phosphorus 4.4. ProBNP 1370. LDH 1699. C-reactive protein 200.2. Urinalysis negative for infection. Coronavirus PCR detected. Chest x- ray reveals new pulmonary edema compared to old exam. This could be acute pneumonia or RDS. No pleural fluid seen to suggest heart failure. CAT scan of the brain revealed age-related atrophy and chronic small vessel ischemic change without acute intracranial process. Patient is seen on the observation unit waiting for cardiac stepdown bed, pulmonary consult in place and consult added for neurology. 02/08: Patient is confused and agitated and moaning. We will add and a dose of Haldol and Geodon 10 mg twice daily. Patient has been seen by neurology and resumed on Plavix. IV fluids changed to D5 normal saline at 50 mL per hour. Patient is currently not taking any oral medications due to mental status changes. Patient has been afebrile, heart rate 64, respiratory rate 22-30, blood pressure 147/79, pulse ox 88% on nonrebreather and patient was transitioned to BiPAP. Repeat blood work reveals WBC 16.9 otherwise unremarkable CBC. Chloride 109, CO2 19, BUN 17 creatinine 1.93. Blood sugars running between 207 and 353. AST 40. REVIEW OF SYSTEMS Unable to be obtained due to mental status. PHYSICAL EXAMINATION Gen: This is a morbidly obese female. Patient is resting in bed and appears to be comfortable. Patient is currently on a nonrebreather mask. No respiratory distress is noted at rest. HEENT: Head is atraumatic, normocephalic. Pupils equal, round. Sclerae is anicteric. NECK: Supple. No JVD. No lymphadenopathy. No thyromegaly. LUNGS: Clear to auscultation. No wheezes or rhonchi. No intercostal retrac tions. HEART: Regular rate and rhythm. No murmur. ABDOMEN: Morbidly obese. Soft. Bowel sounds are present. No masses. No tenderness. EXTREMITIES: No pedal edema. No calf tenderness. Dorsalis pedis +2 bilaterally. NEUROLOGICAL: Patient opens eyes to verbal stimuli and able to provide her name. Generalized weakness, unable to follow commands.. ASSESSMENT AND PLAN 1. Acute hypoxic respiratory failure secondary to COVID19 pneumonia. Consult pulmonary medicine. Continue Lovenox 40 mg daily, Lovenox 40 mg subcu daily. 2. Metabolic encephalopathy secondary to Covid infection in a patient with history of TIAs, CVA. Consult with neurology. CAT scan of the brain negative for acute infarct. 3. Acute kidney injury with chronic kidney disease stage III. Patient is currently on IV fluids 100 mL per hour. Avoid nephrotoxic agents. Continue to monitor. 4. Elevated inflammatory markers secondary to Covid 19. Continue to monitor. 5. Metabolic acidosis secondary to Covid. Patient is currently on IV fluids. 6. Hyponatremia. Patient is on IV fluids. Continue to monitor. 7. Bradycardia. Hold metoprolol. 8. Hypertension, hypertensive cardiovascular disease with left ventricular hypertrophy. Metoprolol on hold. 9. Hyperlipidemia. Continue atorvastatin 80 mg at bedtime. 10. Diabetes mellitus type 2 uncontrolled with severe hyperglycemia. Patient started on 7030 15 units with breakfast, 10 units at bedtime, NovoLog scale before meals. 11. Paroxysmal Atrial fibrillation. Hold metoprolol. Patient is not on anticoagulation at home. 12. Severe right ICA stenosis greater than 90% status post angiogram with Dr. Watters. Continue Plavix 75 mg daily, Lipitor for secondary prevention. 13. History of coronary artery disease status post stent to LAD. Continue atorvastatin. 14. Obstructive sleep apnea. 15. History of hepatocellular carcinoma in remission. 16. Spinal stenosis status post multiple pain procedures including pain stimulator. CODE STATUS: No code. DISCHARGE PLAN TBD. Possibly home with [facility]. Impression and plan of care have been directed as dictated by the signing physician. Clare Mak nurse practitioner acting as scribe for signing physician. Objective - Vital Signs Vital signs: Vital Signs Temp 98.3 F 02/07/21 15:00 Pulse 64 02/08/21 08:00 Resp 30 H 02/08/21 08:00 BP 140/69 02/08/21 08:00 Pulse Ox 95 02/08/21 08:00 Intake & Output 02/07/21 02/08/21 02/08/21 18:59 06:59 18:59 Output Total 200 200 Balance -200 -200 Weight 145.15 kg 147 kg Output: Urine 200 200 - Labs CBC & Chem 7: 02/08/21 10:37 02/08/21 10:37 Labs: Abnormal Lab Results - Last 24 Hours (Table) 02/07/21 02/07/21 02/07/21 Range/Units 11:54 11:57 16:18 POC Glucose (mg/dL) 508 H 487 H 353 H (75-99) mg/dL 02/07/21 02/08/21 Range/Units 19:49 06:06 POC Glucose (mg/dL) 185 H 207 H (75-99) mg/dL
[2021-02-08 17:05] LABS: Glucose,Whole Blood 185 mg/dL (75-99)
[2021-02-08 19:46] LABS: Glucose,Whole Blood 228 mg/dL (75-99)
[2021-02-08 20:53] LABS: Hemoglobin A1C 10.6 % (4.0-6.0)
[2021-02-08] MEDS: ATORVASTATIN 80 MG TAB PO SCH (21:02)
[2021-02-09] MEDS: SODIUM CHLORIDE 0.9% 1,000 ML IV SCH ×2 (02:35→22:02)
[2021-02-09] MEDS: HALOPERIDOL LACTATE 5 MG/ML 1 ML VIAL IVP PRN ×2 (03:04→18:09)
[2021-02-09] MEDS: DEXTROSE 5%-0.9% NACL 1,000 ML IV SCH (03:04)
[2021-02-09] MEDS: DEXTROSE 5%-0.45% NACL 1,000 ML IV SCH (05:30)
[2021-02-09] MEDS ORDERED: ACETAMINOPHEN IV (For NPO) 1,000 MG in EMPTY BAG 1 BAG IVPB PRN (06:00)
[2021-02-09] MEDS ORDERED: cloNIDine 0.1 MG/24HR PATCH TRANSDERM SCH (06:00)
[2021-02-09] MEDS: PIPERACILLIN-TAZOBACTAM 3.375 GM in SODIUM CHLORIDE 0.9% 100 ML IVPB SCH ×2 (06:25→12:40)
[2021-02-09 07:10] LABS: Glucose,Whole Blood 329 mg/dL (75-99)
[2021-02-09] MEDS: INSULIN ASPART (NovoLOG) 100 UNIT/ML VIAL SQ SCH ×2 (08:57→12:41)
[2021-02-09] MEDS: INSULN ASP PRT/INSULIN ASPART 100 UNIT/ML 10 ML VIAL SQ SCH (08:58)
[2021-02-09] MEDS ORDERED: INSULN ASP PRT/INSULIN ASPART 100 UNIT/ML 10 ML VIAL SQ ONE (08:58)
[2021-02-09] MEDS: CLOPIDOGREL 75 MG TAB PO SCH (09:09)
[2021-02-09] MEDS: VENLAFAXINE HCL 75 MG TAB PO SCH (09:09)
[2021-02-09] MEDS: FERROUS SULFATE 325 MG TAB PO SCH (09:09)
[2021-02-09] MEDS: CHOLECALCIFEROL 25 MCG (1000 IU) TABLET PO SCH (09:09)
[2021-02-09] MEDS: CYANOCOBALAMIN 500 MCG TAB PO SCH (09:09)
[2021-02-09] MEDS: DEXAMETHASONE SOD PHOSPHATE 10 MG/ML 1 ML VIAL IV SCH (09:28)
[2021-02-09] MEDS: PANTOPRAZOLE 40 MG/10 ML VIAL IV SCH (09:29)
[2021-02-09] MEDS: ENOXAPARIN 30 MG/0.3 ML SYRINGE SQ SCH (09:29)
[2021-02-09] MEDS ORDERED: ENALAPRILAT 1.25 MG/ML 1 ML VIAL IVP PRN (10:20)
[2021-02-09 11:04] LABS: Calcium 8.3 mg/dL (8.4-10.2); Potassium 5.8 mmol/L (3.5-5.1)
[2021-02-09 12:23] LABS: Glucose,Whole Blood 289 mg/dL (75-99)
--- NOTE | 2021-02-09 15:09 | P.PN ---
Subjective Progress Note Date: 02/09/21 HISTORY OF PRESENT ILLNESS This is a 71-year-old female patient of Dr. 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 Patient presented to [facility] emergency center due to shortness of breath, confusion, weakness, cough and diaphoresis. Patient was afebrile, heart rate 68, blood pressure 123/57, pulse ox 65%. Patient was in severe respiratory distress and placed on nonrebreather. EKG was sinus rhythm no acute ST changes. CBC was unremarkable. Sodium 132, potassium 5.4, chloride 101, CO2 19, BUN 54 and creatinine 1.69. Liver function tests normal. Troponin 0.032. Initial lactic acid 2.3 and repeat is 1.2. Blood sugars are elevated in the 300s and 400s.Phosphorus 4.4. ProBNP 1370. LDH 1699. C-reactive protein 200.2. Urinalysis negative for infection. Coronavirus PCR detected. Chest x- ray reveals new pulmonary edema compared to old exam. This could be acute pneumonia or RDS. No pleural fluid seen to suggest heart failure. CAT scan of the brain revealed age-related atrophy and chronic small vessel ischemic change without acute intracranial process. Patient is seen on the observation unit waiting for cardiac stepdown bed, pulmonary consult in place and consult added for neurology. 02/08: Patient is confused and agitated and moaning. We will add and a dose of Haldol and Geodon 10 mg twice daily. Patient has been seen by neurology and resumed on Plavix. IV fluids changed to D5 normal saline at 50 mL per hour. Patient is currently not taking any oral medications due to mental status changes. Patient has been afebrile, heart rate 64, respiratory rate 22-30, blood pressure 147/79, pulse ox 88% on nonrebreather and patient was transitioned to BiPAP. Repeat blood work reveals WBC 16.9 otherwise unremarkable CBC. Chloride 109, CO2 19, BUN 17 creatinine 1.93. Blood sugars running between 207 and 353. AST 40. 4/2: Patient remains unchanged, significant mental status changes, unresponsive, pupils are dilated, patient is moaning. She is afebrile, heart rate in the 50s and 60s, respiratory rate 24-30, blood pressure 138/74, pulse ox 96% on BiPAP at 75% FiO2. Clonidine patch and IV Vasotec added for high blood pressure. Repeat blood work reveals sodium 140, potassium 5.8, chloride 113, CO2 19, BUN 64 and creatinine 1.47. Blood sugars are running 200s and 300s. Insulins will be increased. Patient has taken no oral medication since arrival 2 days ago. REVIEW OF SYSTEMS Unable to be obtained due to mental status. PHYSICAL EXAMINATION Gen: This is a morbidly obese female. Patient is resting in bed and appears to be comfortable. Patient is currently on a nonrebreather mask. No respiratory distress is noted at rest. HEENT: Head is atraumatic, normocephalic. Pupils equal, round. Sclerae is anicteric. NECK: Supple. No JVD. No lymphadenopathy. No thyromegaly. LUNGS: Clear to auscultation. No wheezes or rhonchi. Positive intercostal retractions. Tachypnea. HEART: Regular rate and rhythm. No murmur. ABDOMEN: Morbidly obese. Soft. Bowel sounds are present. No masses. No ten derness. EXTREMITIES: No pedal edema. No calf tenderness. Dorsalis pedis +2 bilaterally. NEUROLOGICAL: Patient opens eyes to verbal stimuli and able to provide her name. Generalized weakness, unable to follow commands.. ASSESSMENT AND PLAN 1. Acute hypoxic respiratory failure secondary to COVID19 pneumonia. Consult pulmonary medicine. Continue Lovenox 40 mg daily, Lovenox 40 mg subcu daily. 2. Metabolic encephalopathy secondary to Covid infection in a patient with history of TIAs, CVA. Consult with neurology. CAT scan of the brain negative for acute infarct. 3. Acute kidney injury with chronic kidney disease stage III. Patient is currently on IV fluids 100 mL per hour. Avoid nephrotoxic agents. Continue to monitor. 4. Elevated inflammatory markers secondary to Covid 19. Continue to monitor. 5. Metabolic acidosis secondary to Covid. Patient is currently on IV fluids. 6. Hyponatremia. Patient is on IV fluids. Continue to monitor. 7. Bradycardia. Hold metoprolol. 8. Hypertension, hypertensive cardiovascular disease with left ventricular hypertrophy. Metoprolol on hold. 9. Hyperlipidemia. Continue atorvastatin 80 mg at bedtime. 10. Diabetes mellitus type 2 uncontrolled with severe hyperglycemia. Patient started on 70/30 increased to 20 units with breakfast and increase to 15 units at bedtime, NovoLog scale before meals. 11. Paroxysmal Atrial fibrillation. Hold metoprolol. Patient is not on anticoagulation at home. 12. Severe right ICA stenosis greater than 90% status post angiogram with Dr. Watters. Continue Plavix 75 mg daily, Lipitor for secondary prevention. 13. History of coronary artery disease status post stent to LAD. Continue atorvastatin. 14. Obstructive sleep apnea. 15. History of hepatocellular carcinoma in remission. 16. Spinal stenosis status post multiple pain procedures including pain stimulator. CODE STATUS: No code. Prognosis is poor. DISCHARGE PLAN TBD. Possibly home with [facility]. Impression and plan of care have been directed as dictated by the signing physician. Clare Mak nurse practitioner acting as scribe for signing danette wilson. Objective - Vital Signs Vital signs: Vital Signs Temp 97.8 F 02/09/21 08:00 Pulse 53 L 02/09/21 08:00 Resp 30 H 02/09/21 08:00 BP 138/74 02/09/21 08:00 Pulse Ox 96 02/09/21 08:00 Intake & Output 02/08/21 02/09/21 02/09/21 18:59 06:59 18:59 Intake Total 400 300 0 Output Total 100 400 Balance 300 -100 0 Weight 146.5 kg Intake: Intake, IV Titration 400 300 Amount Dextrose 5%-0.9% NaCl 1, 400 300 000 ml @ 50 mls/hr IV . Q20H [facility] Rx#:[id number] Oral 0 Output: Urine 100 400 Other: Voiding Method External Catheter External Catheter # Voids 1 - Labs CBC & Chem 7: 02/08/21 10:37 02/09/21 10:21 Labs: Abnormal Lab Results - Last 24 Hours (Table) 02/08/21 02/08/21 02/08/21 Range/Units 10:37 10:37 10:37 WBC 16.9 H (3.8-10.6) k/uL Neutrophils # 15.2 H (1.3-7.7) k/uL Chloride 109 H (98-107) mmol/L Carbon Dioxide 19 L (22-30) mmol/L BUN 70 H (7-17) mg/dL Creatinine 1.93 H (0.52-1.04) mg/dL Glucose 164 H (74-99) mg/dL POC Glucose (mg/dL) (75-99) mg/dL Hemoglobin A1c 10.6 H (4.0-6.0) % Phosphorus 4.8 H (2.5-4.5) mg/dL AST 40 H (14-36) U/L Albumin 3.3 L (3.5-5.0) g/dL 02/08/21 02/08/21 02/08/21 Range/Units 12:02 17:03 19:44 WBC (3.8-10.6) k/uL Neutrophils # (1.3-7.7) k/uL Chloride (98-107) mmol/L Carbon Dioxide (22-30) mmol/L BUN (7-17) mg/dL Creatinine (0.52-1.04) mg/dL Glucose (74-99) mg/dL POC Glucose (mg/dL) 179 H 185 H 228 H (75-99) mg/dL Hemoglobin A1c (4.0-6.0) % Phosphorus (2.5-4.5) mg/dL AST (14-36) U/L Albumin (3.5-5.0) g/dL 02/09/21 Range/Units 07:06 WBC (3.8-10.6) k/uL Neutrophils # (1.3-7.7) k/uL Chloride (98-107) mmol/L Carbon Dioxide (22-30) mmol/L BUN (7-17) mg/dL Creatinine (0.52-1.04) mg/dL Glucose (74-99) mg/dL POC Glucose (mg/dL) 329 H (75-99) mg/dL Hemoglobin A1c (4.0-6.0) % Phosphorus (2.5-4.5) mg/dL AST (14-36) U/L Albumin (3.5-5.0) g/dL
--- NOTE | 2021-02-09 15:23 | P.PN ---
Subjective Progress Note Date: 02/09/21 Ration was seen at bedside and per the patient's nurse it seems that her mentation has not been improving and seems poor. She is currently continues to get BiPAP machine. She is not swallowing is NPO. Objective - Vital Signs Vital signs: Vital Signs Temp 97.8 F 02/09/21 12:00 Pulse 60 02/09/21 12:00 Resp 24 02/09/21 12:00 BP 162/83 02/09/21 12:00 Pulse Ox 95 02/09/21 12:00 Intake & Output 02/08/21 02/09/21 02/09/21 18:59 06:59 18:59 Intake Total 400 300 450 Output Total 100 400 350 Balance 300 -100 100 Weight 146.5 kg Intake: Intake, IV Titration 400 300 450 Amount Dextrose 5%-0.9% NaCl 1, 400 300 350 000 ml @ 50 mls/hr IV . Q20H [facility] Rx#:[id number] Piperacillin-Tazobactam 3 100 .375 gm In Sodium Chloride 0.9% 100 ml @ 25 mls/hr IVPB Q6HR [facility] Rx# :[id number] Oral 0 Output: Urine 100 400 350 Other: Voiding Method External Catheter External Catheter # Voids 1 - Exam GENERAL: The patient is lying in bed and seems in acute distress. She was moaning in pain. LUNG: Was on BIPAP machine. NEUROLOGICAL: Limited because of her condition. Higher mental function: The patient is awake but not verbally responding. She is only moaning. She correctly nods her name. She was able to follow one simple command such as showing a thumbs up over the right. Cranial nerves: Pupils are round, equal and reactive to light symeterically. EOM is tracking me throughout room mostly to the right side but not tracking to her left side. The facial strengthwas hard to assess since was wearing BiPAP but upon taking it off could not appreciate visible facial weakness. Motor: Gait is deferred. The strength is moving the right upper and lower extre mity sponateously (both angtigravity). While left side not moving and even with painful stimuli is not moving left side (upper or lower). Tone seems normal on both Cerebellum: Could not assess becuase of cooperation. Sensation: could not assess. Reflexes (right/left): 2+ uppers and 1+ lowers Plantars are upgoing bilaterally. Upon asking the patient's nurse when her left-sided weakness was noted that she stated that she didn't know at it's unknown if she had this weakness from yesterday or not. NIH Stroke Scale Score: Level of consciousness 0 LOC questions 2 LOC commands 2 Best gaze 2 Visual parsons Unable to determine Facial palsy 0 Left motor arm 4 Right motor arm 0 Left motor leg 4 Right motor leg 0 Limb ataxia Unable to determine Sensory Unable to determine Best language 3 Dysarthria Unable to determine Extinction and inattention 2 Total NIHSS score: 19 - Labs CBC & Chem 7: 02/08/21 10:37 02/09/21 10:21 Labs: Abnormal Lab Results - Last 24 Hours (Table) 02/08/21 02/08/21 02/08/21 Range/Units 10:37 17:03 19:44 Potassium (3.5-5.1) mmol/L Chloride (98-107) mmol/L Carbon Dioxide (22-30) mmol/L BUN (7-17) mg/dL Creatinine (0.52-1.04) mg/dL Glucose (74-99) mg/dL POC Glucose (mg/dL) 185 H 228 H (75-99) mg/dL Hemoglobin A1c 10.6 H (4.0-6.0) % Calcium (8.4-10.2) mg/dL 02/09/21 02/09/21 02/09/21 Range/Units 07:06 10:21 12:14 Potassium 5.8 H (3.5-5.1) mmol/L Chloride 113 H (98-107) mmol/L Carbon Dioxide 19 L (22-30) mmol/L BUN 64 H (7-17) mg/dL Creatinine 1.47 H (0.52-1.04) mg/dL Glucose 361 H (74-99) mg/dL POC Glucose (mg/dL) 329 H 289 H (75-99) mg/dL Hemoglobin A1c (4.0-6.0) % Calcium 8.3 L (8.4-10.2) mg/dL Assessment and Plan Assessment: Left sided weakness seems due to acute ischemic stroke: Unknown last normal state. No tpa since unknown last normal state. Altered mental status due to metabolic encephalopathy (multifactorial: uncontrolled the sugar, Acute hypoxic respiratory failure due to COVID 19 pneumonia, acute on chronic kidney insufficiency) Acute hypoxic respiratory failure secondary dut to COVID 19 pneumonia Multiple lacunar stroke mostly over the right than the left (basal ganglia/thalamus and abida). From small vessel disease from her risk factors). Long standing Uncontrolled diabetes mellitus Leukocytosis due to medication effect (Dexamethasone) History of vitamin B12 deficiency Reported recurrent falls, syncope and the per Dr. Parisi is mentioned that the he felt was chronic leg weakness for multiple leg knee surgery and left hip weakness resulting in buckling of the knees and falling Hyperlipidemia Right ICA plaque without siginificnat stenosis per previous CTA but per carotid duplex 50-69% stenosis (11/2020) Plan: Continue Plavix 75 mg daily and her home dose of Lipitor 80 mg daily for secondary stroke prophylaxis. Because the patient is nothing by mouth I'll start the patient on suppository aspirin once the CT of the head is negative for bleed. T Vitamin B12 was 324 which is low normal on 12/05/2020. Methylmalonic acid is 1.09 which is elevated. Continue a vitamin B12 1000 g daily. Folate is 10.3 on 12/05/2020 which is normal. Ionized calcium: 4.6 (normal). Ammonia level: <9 (normal). Ordered STAT CT brain. I spoke with the patient daughter (Sonam) via phone and she stated that the she'll walk any surgical intervention the for the patient. She doesn't want to go through with a CTA of the head and neck. My humble opinion there is no need for carotid duplex if the patient's daughter does not want any intervention on her. Pulmonary team is on board. We'll defer the rest of the medical management to the primary team. The patient prognosis seems poor. Patient is DNI and DNR per the patients nurse. The plan was discussed with the patient's daughter via phone (Sonam) and the patient's nurse. UPDATE: The primary team just spoke with the family and family decided to make her comfort care. Kory Nuñez M.D. Neuro-hospitalist Time with Patient: Less than 30
[2021-02-09 16:02] VITALS: BMI 53.7
[2021-02-09] MEDS: MORPHINE SULFATE 2 MG/ML SYRINGE IVP PRN ×2 (16:57→22:04)
[2021-02-09] MEDS: LORazepam 2 MG/ML INJ IV PRN ×2 (20:19→23:48)
[2021-02-09 20:28] VITALS: BP 141/74; TEMP 98.5
[2021-02-09] MEDS ORDERED: INSULN ASP PRT/INSULIN ASPART 100 UNIT/ML 10 ML VIAL SQ SCH (21:00)
[2021-02-10] MEDS: MORPHINE SULFATE 2 MG/ML SYRINGE IVP PRN ×2 (03:07→04:31)
[2021-02-10] MEDS: LORazepam 2 MG/ML INJ IV PRN (03:41)
[2021-02-10] MEDS: MORPHINE SULFATE (100 MG/2 ML) 100 MG in SODIUM CHLORIDE 0.9% 100 ML IV SCH ×2 (05:09→16:11)
[2021-02-10 06:42] VITALS: PULSE 96
[2021-02-10] MEDS ORDERED: INSULN ASP PRT/INSULIN ASPART 100 UNIT/ML 10 ML VIAL SQ SCH (07:30)
[2021-02-10] MEDS: PANTOPRAZOLE 40 MG/10 ML VIAL IV SCH (08:48)
[2021-02-10 16:17] VITALS: RESP 14
--- NOTE | 2021-02-12 12:48 | P.DS ---
Providers Date of admission: 02/07/21 01:16 Expected date of discharge: 02/10/21 Attending physician: Fariba Maza MD Consults: 02/07/21 01:17 Consult Physician Routine Consulting Provider: Jama Mcgee Consult Reason/Comments: covid Do you want consulting provider notified?: Yes 02/07/21 09:30 Consult Physician Routine Consulting Provider: Kory Nuñez Consult Reason/Comments: metabolic encephalopathy Do you want consulting provider notified?: Yes 02/09/21 05:57 Consult Physician Stat Consulting Provider: Kleber Eng Consult Reason/Comments: COVID Do you want consulting provider notified?: Yes, Notify in am [place] [facility] [place] HISTORY OF PRESENT ILLNESS This is a 71-year-old female patient of Dr. 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 Patient presented to [facility] emergency center due to shortness of breath, confusion, weakness, cough and diaphoresis. Patient was afebrile, heart rate 68, blood pressure 123/57, pulse ox 65%. Patient was in severe respiratory distress and placed on nonrebreather. EKG was sinus rhythm no acute ST changes. CBC was unremarkable. Sodium 132, potassium 5.4, chloride 101, CO2 19, BUN 54 and creatinine 1.69. Liver function tests normal. Troponin 0.032. Initial lactic acid 2.3 and repeat is 1.2. Blood sugars are elevated in the 300s and 400s.Phosphorus 4.4. ProBNP 1370. LDH 1699. C-reactive protein 200.2. Urinalysis negative for infection. Coronavirus PCR detected. Chest x- ray reveals new pulmonary edema compared to old exam. This could be acute pneumonia or RDS. No pleural fluid seen to suggest heart failure. CAT scan of the brain revealed age-related atrophy and chronic small vessel ischemic change without acute intracranial process. Patient is seen on the observation unit waiting for cardiac stepdown bed, pulmonary consult in place and consult added for neurology. 02/08: Patient is confused and agitated and moaning. We will add and a dose of Haldol and Geodon 10 mg twice daily. Patient has been seen by neurology and resumed on Plavix. IV fluids changed to D5 normal saline at 50 mL per hour. Patient is currently not taking any oral medications due to mental status changes. Patient has been afebrile, heart rate 64, respiratory rate 22-30, blood pressure 147/79, pulse ox 88% on nonrebreather and patient was transitioned to BiPAP. Repeat blood work reveals WBC 16.9 otherwise unremarkable CBC. Chloride 109, CO2 19, BUN 17 creatinine 1.93. Blood sugars running between 207 and 353. AST 40. 02/09: Patient remains unchanged, significant mental status changes, unresponsive, pupils are dilated, patient is moaning. She is afebrile, heart rate in the 50s and 60s, respiratory rate 24-30, blood pressure 138/74, pulse ox 96% on BiPAP at 75% FiO2. Clonidine patch and IV Vasotec added for high blood pressure. Repeat blood work reveals sodium 140, potassium 5.8, chloride 113, CO2 19, BUN 64 and creatinine 1.47. Blood sugars are running 200s and 300s. Insulins will be increased. Patient has taken no oral medication since arrival 2 days ago. Patient was made comfort care per family's wishes and she on 02/10. Please see nursing documentation for details. ASSESSMENT AND PLAN 1. Acute hypoxic respiratory failure secondary to COVID19 pneumonia. 2. Metabolic encephalopathy secondary to Covid infection in a patient with history of TIAs, CVA. 3. Acute kidney injury with chronic kidney disease stage III. 4. Elevated inflammatory markers secondary to Covid 19. 5. Metabolic acidosis secondary to Covid. 6. Hyponatremia. 7. Bradycardia. 8. Hypertension, hypertensive cardiovascular disease with left ventricular hypertrophy. 9. Hyperlipidemia. 10. Diabetes mellitus type 2 uncontrolled with severe hyperglycemia. 11. Paroxysmal Atrial fibrillation. 12. Severe right ICA stenosis greater than 90% status post angiogram with Dr. Watters. 13. History of coronary artery disease status post stent to LAD. 14. Obstructive sleep apnea. 15. History of hepatocellular carcinoma in remission. 16. Spinal stenosis status post multiple pain procedures including pain stimulator. Impression and plan of care have been directed as dictated by the signing physician. Clare Mak nurse practitioner acting as scribe for signing physician. Patient Condition at Discharge: Undetermined Plan - Discharge Summary Discharge Rx Participant: No New Discharge Prescriptions: No Action Pantoprazole Sodium 40 mg PO DAILY Venlafaxine HCl [Effexor] 150 mg PO HS Venlafaxine HCl [Effexor] 75 mg PO QAM rOPINIRole HCL [Requip] 0.25 mg PO HS Ferrous Gluconate 324 mg PO DAILY Gabapentin [Neurontin] 300 mg PO HS #3 cap Atorvastatin [Lipitor] 80 mg PO DAILY #30 tab Metoprolol Tartrate [Lopressor] 25 mg PO BID #60 tab Nitroglycerin Sl Tabs [Nitrostat] 0.4 mg SUBLINGUAL Q5M PRN #20 tab PRN Reason: Chest Pain Clopidogrel [Plavix] 75 mg PO DAILY #30 tab Cholecalciferol [Vitamin D3 (25 Mcg = 1000 Iu)] 25 mcg PO DAILY Calcium/Magnesium/Zinc [Rvyyhfo-Qgrngagnn-Srui Tablet] 1 tab PO DAILY Insulin Glargine,Hum.rec.anlog [Lantus Solostar] 30 unit SQ HS Insulin Aspart [NovoLOG] 6 units SQ ACHS fentaNYL 50MCG/HR PATCH [Duragesic 50MCG/HR] 1 patch TRANSDERM Q72H Solifenacin Succinate [Vesicare] 10 mg PO DAILY Discharge Medication List Pantoprazole Sodium 40 mg PO DAILY 08/10/14 [History] Venlafaxine HCl [Effexor] 75 mg PO QAM 05/18/17 [History] Venlafaxine HCl [Effexor] 150 mg PO HS 05/18/17 [History] rOPINIRole HCL [Requip] 0.25 mg PO HS 06/06/19 [History] Ferrous Gluconate 324 mg PO DAILY 05/08/20 [History] Gabapentin [Neurontin] 300 mg PO HS #3 cap 12/07/20 [Rx] Atorvastatin [Lipitor] 80 mg PO DAILY #30 tab 12/25/20 [Rx] Clopidogrel [Plavix] 75 mg PO DAILY #30 tab 12/25/20 [Rx] Metoprolol Tartrate [Lopressor] 25 mg PO BID #60 tab 12/25/20 [Rx] Nitroglycerin Sl Tabs [Nitrostat] 0.4 mg SUBLINGUAL Q5M PRN #20 tab 12/25/20 [Rx] Calcium/Magnesium/Zinc [Vflehmk-Omwcjgltk-Syaa Tablet] 1 tab PO DAILY 01/04/21 [History] Cholecalciferol [Vitamin D3 (25 Mcg = 1000 Iu)] 25 mcg PO DAILY 01/04/21 [History] Insulin Aspart [NovoLOG] 6 units SQ ACHS 01/15/21 [History] Insulin Glargine,Hum.rec.anlog [Lantus Solostar] 30 unit SQ HS 01/15/21 [History] Solifenacin Succinate [Vesicare] 10 mg PO DAILY 02/07/21 [History] fentaNYL 50MCG/HR PATCH [Duragesic 50MCG/HR] 1 patch TRANSDERM Q72H 02/07/21 [History] Follow up Appointment(s)/Referral(s): Shane Burnham MD [Primary Care Provider] - 1-2 days Discharge Disposition: - Preliminary Cause of Preliminary Cause of : Acute hypoxic respiratory failure secondary to COVID19 pneumonia.
== END 2021-02-10 21:13 | disposition expired | DRG 871 ==
LOC: EC 23:20 → 3SCARD 02-07 01:16
PROVIDERS: ADMIT Internal Medicine; ATTEND Internal Medicine
DX: A41.89 Other specified sepsis (principal); U07.1 COVID-19; J96.01 Acute respiratory failure with hypoxia; I63.9 Cerebral infarction, unspecified; J81.0 Acute pulmonary edema; J12.82 Pneumonia due to coronavirus disease 2019; G93.41 Metabolic encephalopathy; N17.9 Acute kidney failure, unspecified; E87.2 Acidosis; E87.1 Hypo-osmolality and hyponatremia; Z68.43 Body mass index [BMI] 50.0-59.9, adult; G81.94 Hemiplegia, unspecified affecting left nondominant side; E11.42 Type 2 diabetes mellitus with diabetic polyneuropathy; E11.22 Type 2 diabetes mellitus with diabetic chronic kidney disease; E11.51 Type 2 diabetes mellitus with diabetic peripheral angiopathy without gangrene; F03.90 Unspecified dementia, unspecified severity, without behavioral disturbance, psychotic disturbance, mood disturbance, and anxiety; E66.01 Morbid (severe) obesity due to excess calories; N18.30 Chronic kidney disease, stage 3 unspecified; I48.0 Paroxysmal atrial fibrillation; E11.65 Type 2 diabetes mellitus with hyperglycemia; Z79.4 Long term (current) use of insulin; Z66 Do not resuscitate; Z51.5 Encounter for palliative care; I13.10 Hypertensive heart and chronic kidney disease without heart failure, with stage 1 through stage 4 chronic kidney disease, or unspecified chronic kidney disease; R29.719 NIHSS score 19; K44.9 Diaphragmatic hernia without obstruction or gangrene; E78.5 Hyperlipidemia, unspecified; M48.061 Spinal stenosis, lumbar region without neurogenic claudication; M51.36 Other intervertebral disc degeneration, lumbar region; G89.4 Chronic pain syndrome; R26.9 Unspecified abnormalities of gait and mobility; R32 Unspecified urinary incontinence; I65.21 Occlusion and stenosis of right carotid artery; I25.10 Atherosclerotic heart disease of native coronary artery without angina pectoris; G47.33 Obstructive sleep apnea (adult) (pediatric); E53.8 Deficiency of other specified B group vitamins; I25.2 Old myocardial infarction; G25.81 Restless legs syndrome; R00.1 Bradycardia, unspecified; N32.81 Overactive bladder; R29.6 Repeated falls; Z79.02 Long term (current) use of antithrombotics/antiplatelets; Z79.899 Other long term (current) drug therapy; Z79.891 Long term (current) use of opiate analgesic; Z86.14 Personal history of Methicillin resistant Staphylococcus aureus infection; Z86.73 Personal history of transient ischemic attack (TIA), and cerebral infarction without residual deficits; Z85.05 Personal history of malignant neoplasm of liver; Z96.652 Presence of left artificial knee joint; Z90.89 Acquired absence of other organs; Z95.5 Presence of coronary angioplasty implant and graft; Z90.710 Acquired absence of both cervix and uterus; Z90.49 Acquired absence of other specified parts of digestive tract; Z87.19 Personal history of other diseases of the digestive system; Z87.42 Personal history of other diseases of the female genital tract; Z96.82 Presence of neurostimulator; Z87.39 Personal history of other diseases of the musculoskeletal system and connective tissue; Z86.2 Personal history of diseases of the blood and blood-forming organs and certain disorders involving the immune mechanism; Z87.440 Personal history of urinary (tract) infections; Z99.3 Dependence on wheelchair; Z92.21 Personal history of antineoplastic chemotherapy; Z71.3 Dietary counseling and surveillance; Z98.890 Other specified postprocedural states; Z88.8 Allergy status to other drugs, medicaments and biological substances; Z91.048 Other nonmedicinal substance allergy status; Z82.49 Family history of ischemic heart disease and other diseases of the circulatory system; Z83.3 Family history of diabetes mellitus
CPT/HCPCS: 36415; 70450; 71045; 80048; 80053; 81001; 82140; 82330; 83036; 83605; 83615; 83735; 83880; 84100; 84145; 84484; 85025; 85610; 85730; 86140; 87635; 93005; 94660; 94760; 96361; 96374; 99285